=== PATIENT | male | born 1960 | race Caucasian/White ===

== ENCOUNTER 2022-04-16 08:43 | Day surgery (SDC) | payer BC, OTHER ==
[~2022-04-16 08:43] MED LIST: SODIUM CHLORIDE 0.9% 1,000 ML IV SCH
[2022-04-16] MEDS ORDERED: SODIUM CHLORIDE 0.9% 500 ML 500 ML IV ONE (08:56)
[2022-04-16 09:07] LABS: Glucose,Whole Blood 168 mg/dL (70-110)
[2022-04-16 09:28] LABS: Calcium 9.7 mg/dL (8.4-10.2); Potassium 4.2 mmol/L (3.5-5.1)
[2022-04-16] MEDS ORDERED: PROPOFOL 10 MG/ML 20 ML VIAL IV ONE (10:25)
[2022-04-16] MEDS ORDERED: HEPARIN SODIUM,PORCINE 5,000 UNIT/ML 1 ML VIAL ONE (10:25)
[2022-04-16] MEDS ORDERED: LIDOCAINE 2% INJ 20 MG/ML (2 ML VIAL) ONE (10:25)
--- NOTE | 2022-04-16 10:56 | P.TEE ---
Description of Procedure(s): Procedure performed: Transesophageal Echocardiogram with color flow doppler, pulsed wave doppler and continuous wave doppler, cardioversion Moderate conscious sedation: Moderate conscious sedation was supplied by anesthesia, see separate report Complications: none Indications: Symptomatic A. fib PROCEDURE: After the risks, benefits and alternatives of the above mentioned procedure was explained in detail with the patient, informed consent was obtained. Patient was brought to the lab in a fasting state. Patient was given IV Versed and Fentanyl for sedation. The throat was sprayed with Hurricane to anesthetize the throat. A lubricated Omni probe was then introduced into the esophagus and stomach and multiple views were obtained. 2D echo with color flow doppler, pulsed wave doppler and continuous wave doppler was utilized. Agitated saline bubbles were injected to assess for any intra-atrial shunt. The probe wa s then removed. Synchronize cardioversion 1 was performed with 200 J with resultant sinus rhythm. Patient tolerated the procedure well. Patient was transferred to the post procedure area in stable and satisfactory condition. FINDINGS: 1. The aortic valve is tricuspid and functioning normally. 2. The mitral valve appears be normal with mild mitral regurgitation. 3. Tricuspid valve with trace tricuspid regurgitation. 4. The interatrial septum is intact. No evidence of PFO. 5. Left atrial appendage is free of clot. There is smoke noted in left atrial appendage however no thrombus. 6. Left ventricular ejection fraction is 15-20% with global hypokinesis
[2022-04-16 11:22] VITALS: RESP 16
[2022-04-16 12:58] VITALS: PULSE 80
[2022-04-16 13:03] VITALS: BP 122/85
== END 2022-04-16 12:45 | disposition home or self-care (01) ==
LOC: CATHCVL 08:43
PROVIDERS: ATTEND Internal Medicine
DX: I48.11 Longstanding persistent atrial fibrillation (principal); I11.0 Hypertensive heart disease with heart failure; I50.9 Heart failure, unspecified; E78.5 Hyperlipidemia, unspecified; E11.9 Type 2 diabetes mellitus without complications; F17.210 Nicotine dependence, cigarettes, uncomplicated
CPT/HCPCS: 80048; 92960; 93312; 93320; 93325

== ENCOUNTER 2022-11-13 23:48 | Emergency (ER) | payer OTHER ==
[2022-11-14] MEDS ORDERED: PANTOPRAZOLE 40 MG/10 ML VIAL ONE (02:00)
[2022-11-14] MEDS ORDERED: SODIUM CHLORIDE 0.9% 1,000 ML BAG ONE (02:00)
[2022-11-14] MEDS ORDERED: DILTIAZEM 125 MG/25 ML VIAL IV ONE (02:00)
[2022-11-14] MEDS ORDERED: SODIUM CHLORIDE 0.9% 100 ML BAG ONE (02:00)
[2022-11-14] MEDS ORDERED: ONDANSETRON 4 MG/2 ML VIAL ONE (02:00)
[2022-11-14] MEDS ORDERED: cefTRIAXone IN SWFI 1,000 MG/10 ML SYRINGE IVP ONE (02:00)
[2022-11-14] MEDS ORDERED: OCTREOTIDE 100 MCG/ML INJ ONE (02:00)
[2022-11-14] MEDS ORDERED: cefTRIAXone IN SWFI 1,000 MG/10 ML SYRINGE IVP STA (02:30)
[2022-11-14] MEDS ORDERED: ONDANSETRON 4 MG/2 ML VIAL IVP ONE (02:30)
[2022-11-14] MEDS ORDERED: OCTREOTIDE 100 MCG/ML INJ IVP ONE (03:00)
[2022-11-14] MEDS ORDERED: OCTREOTIDE 500 MCG in SODIUM CHLORIDE 0.9% 250 ML IV ONE (03:00)
[2022-11-14 06:56] LABS: Basophils % (A) 0 %; Eosinophils # (A) 0.1 k/uL (0-0.7); Eosinophils % (A) 1 %; HCT 39.8 % (39.0-53.0); HGB 12.9 gm/dL (13.0-17.5); Lymphocytes # (A) 1.4 k/uL (1.0-4.8); Lymphocytes % (A) 12 %; MCH 32.4 pg (25.0-35.0); MCHC 32.4 g/dL (31.0-37.0); MCV 100.2 fL (80.0-100.0); Macrocytosis Slight; Mean Platelet Volume 8.4; Monocytes # (A) 0.8 k/uL (0-1.0); Monocytes % (A) 6 %; Neutrophils # (A) 9.7 k/uL (1.3-7.7); Neutrophils % (A) 78 %; Platelet Count 284 k/uL (150-450); RBC 3.97 m/uL (4.30-5.90); RDW 14.4 % (11.5-15.5); WBC 12.4 k/uL (3.8-10.6)
[2022-11-14 06:58] LABS: HCT 35.7 % (39.0-53.0); HGB 11.4 gm/dL (13.0-17.5); MCH 32.2 pg (25.0-35.0); MCHC 32.1 g/dL (31.0-37.0); MCV 100.2 fL (80.0-100.0); Macrocytosis Slight; Mean Platelet Volume 8.4; Platelet Count 251 k/uL (150-450); RBC 3.56 m/uL (4.30-5.90); RDW 14.5 % (11.5-15.5); WBC 13.8 k/uL (3.8-10.6)
[2022-11-14 07:00] LABS: INR 1.2 (<1.2); Partial Thromboplastin Time 24.3 sec (22.0-30.0); Prothrombin Time 12.4 sec (9.0-12.0)
[2022-11-14 07:13] LABS: ALT 16 U/L (4-49); AST 21 U/L (17-59); African American GFR (CKD) 51 (>60 ml/min/1.73 sqM); Albumin 4.4 g/dL (3.5-5.0); Alkaline Phosphatase 63 U/L (38-126); Anion Gap 15 mmol/L; Blood Urea Nitrogen 88 mg/dL (9-20); Calcium 9.6 mg/dL (8.4-10.2); Carbon Dioxide 22 mmol/L (22-30); Chloride 104 mmol/L (98-107); Glucose 152 mg/dL (74-99); Non-African American GFR(CKD) 44 (>60 ml/min/1.73 sqM); Sodium 141 mmol/L (137-145); Total Protein 7.8 g/dL (6.3-8.2)
--- NOTE | 2022-11-14 15:24 | XR ---
EXAM: XR Chest, 2 Views CLINICAL HISTORY: Chest pain, SOB TECHNIQUE: Frontal and lateral views of the chest. COMPARISON: No relevant prior studies available. FINDINGS: Lungs: Vascular congestion. Pleural space: Unremarkable. No pneumothorax. No pleural effusions. Heart: Mild cardiomegaly. Mediastinum: Unremarkable. Bones/joints: No acute osseous abnormalities. IMPRESSION: Vascular congestion with mild enlargement of the cardiac silhouette.
== END 2022-11-14 04:15 | disposition other institution (70) ==
LOC: EC 23:48
DX: E87.70 Fluid overload, unspecified (principal)
CPT/HCPCS: 99285 ×2; 36430; 86900; 86901; 36415; 83880; 80053; 83605; 83735; 84484; 85025; 85027; 85610; 85730; 86850; 86920; 82272; 87635; 71046; P9016; G0480; J2405; J2354; J0696; C9113; 80320

== ENCOUNTER → 2023-01-01 | Outpatient (CLI) | payer OTHER ==
[2023-01-01 20:33] LABS: BUN/Creat Ratio 16.82 Ratio (12.00-20.00); Blood Urea Nitrogen 28.6 mg/dL (9.0-27.0); Calcium 9.7 mg/dL (8.7-10.3); Carbon Dioxide 26.3 mmol/L (21.6-31.8); Chloride 99 mmol/L (96-109); Glucose 161 mg/dL (70-110); Potassium 5.1 mmol/L (3.5-5.5); Sodium 137 mmol/L (135-145)
== END | disposition home or self-care (01) ==
LOC: LABPAT 13:19
PROVIDERS: ATTEND Internal Medicine
DX: Z01.818 Encounter for other preprocedural examination (principal); I49.9 Cardiac arrhythmia, unspecified
CPT/HCPCS: 80048

== ENCOUNTER 2023-01-03 10:19 | Day surgery (SDC) | payer OTHER ==
[2023-01-03] MEDS ORDERED: LACTATED RINGERS 1,000 ML IV ONE (10:43)
[2023-01-03 10:57] VITALS: TEMP 97.5
[2023-01-03 11:15] LABS: Glucose,Whole Blood 138 mg/dL (70-110)
[2023-01-03] MEDS ORDERED: BENZOCAINE SPRAY 1 CAN TOPICAL ONE (11:58)
[2023-01-03] MEDS ORDERED: PROPOFOL 10 MG/ML 20 ML VIAL IV ONE (12:00)
[2023-01-03] MEDS ORDERED: LIDOCAINE 2% INJ 20 MG/ML (2 ML VIAL) ONE (12:00)
[2023-01-03 12:43] LABS: Glucose,Whole Blood 112 mg/dL (70-110)
[2023-01-03 13:23] VITALS: BP 127/81; PULSE 53; RESP 16
--- NOTE | 2023-01-03 14:00 | P.TEE ---
Description of Procedure(s): Procedure performed: Transesophageal Echocardiogram with color flow doppler, and continuous wave doppler, synchronized cardioversion Moderate conscious sedation: Moderate conscious sedation was supplied by anesthesia, see separate report. Complications: none Indications: Afib PROCEDURE: After the risks, benefits and alternatives of the above mentioned procedure was explained in detail with the patient, informed consent was obtained. Patient was brought to the lab in a fasting state. Patient was given IV Versed and Fentanyl for sedation. The throat was sprayed with Hurricane to anesthetize the throat. A lubricated Omni probe was then introduced into the esophagus and stomach and multiple views were obtained. 2D echo with color flow doppler, pulsed wave doppler and continuous wave doppler was utilized. Agitated saline bubbles were injected to assess for any intra-atrial shunt. The probe was then removed. There was no thrombus noted and therefore patient underwent synchronized cardioversion x 1 with 200J with resultant sinus rhythm. Patient tolerated the procedure well. Patient was transferred to the post procedure area in stable and satisfactory condition. FINDINGS: 1. The aortic valve is tricuspid and function normally with trace AI. 2. The mitral valve appears be normal with mild regurgitation. 3. Tricuspid valve appears to be normal with moderate to severe tricuspid regurgitation. 4. There is a PFO. 5. Left atrial appendage is free of clot. 6. Left ventricular EF is 35% with global hypokinesis
== END 2023-01-03 13:57 | disposition home or self-care (01) ==
LOC: OR 10:19
PROVIDERS: ATTEND Internal Medicine
DX: I48.11 Longstanding persistent atrial fibrillation (principal); I08.1 Rheumatic disorders of both mitral and tricuspid valves
CPT/HCPCS: 93312; 93320; 93005; 93325; 92960; J2704; J2001

== ENCOUNTER 2024-07-19 21:55 | Inpatient (IN) | payer MEDICARE, OTHER ==
[2024-07-19] MEDS: ENALAPRILAT 1.25 MG/ML 1 ML VIAL IVP STA ×2 (22:19)
[2024-07-19 22:28] LABS: Basophils # (A) 0.1 k/uL (0-0.2); Basophils % (A) 0 %; Eosinophils # (A) 0.1 k/uL (0-0.7); Eosinophils % (A) 0 %; HCT 49.2 % (39.0-53.0); HGB 15.9 gm/dL (13.0-17.5); Lymphocytes # (A) 2.9 k/uL (1.0-4.8); Lymphocytes % (A) 23 %; MCH 30.8 pg (25.0-35.0); MCHC 32.3 g/dL (31.0-37.0); MCV 95.6 fL (80.0-100.0); Mean Platelet Volume 9.2; Monocytes # (A) 0.7 k/uL (0-1.0); Monocytes % (A) 6 %; Neutrophils # (A) 8.6 k/uL (1.3-7.7); Neutrophils % (A) 68 %; Platelet Count 194 k/uL (150-450); RBC 5.14 m/uL (4.30-5.90); WBC 12.7 k/uL (3.8-10.6)
[2024-07-19 22:38] LABS: INR 1.1 (<1.2); Partial Thromboplastin Time 24.5 sec (22.0-30.0); Prothrombin Time 11.9 sec (10.0-12.5)
[2024-07-19 22:42] LABS: ALT 31 U/L (4-49); AST 58 U/L (17-59); African American GFR (CKD) 52 (>60 ml/min/1.73 sqM); Alkaline Phosphatase 59 U/L (38-126); Anion Gap 14 mmol/L; Blood Urea Nitrogen 25 mg/dL (9-20); Calcium 8.9 mg/dL (8.4-10.2); Carbon Dioxide 21 mmol/L (22-30); Chloride 101 mmol/L (98-107); Glucose 228 mg/dL (74-99); Magnesium 1.6 mg/dL (1.6-2.3); Non-African American GFR(CKD) 45 (>60 ml/min/1.73 sqM); Potassium 4.6 mmol/L (3.5-5.1); Sodium 136 mmol/L (137-145); Total Bilirubin 0.6 mg/dL (0.2-1.3); Total Protein 7.2 g/dL (6.3-8.2)
[2024-07-19 22:50] LABS: NT-Pro-B-Type Natriuretic Pept 12900 pg/mL
[2024-07-19 23:03] LABS: Influenza A Detected (Not Detectd); Influenza B Not Detected (Not Detectd); RSV Not Detected (Not Detectd)
--- NOTE | 2024-07-19 23:15 | ED ---
SOB HPI - General Chief Complaint: Shortness of Breath Stated Complaint: SOB Time Seen by Provider: 07/19/24 21:56 Source: patient, EMS, RN notes reviewed, old records reviewed Mode of arrival: EMS Limitations: no limitations - History of Present Illness Initial Comments: This is a 64 male to the ER for evaluation of severe respiratory distress shortness of breath a few days of cough congestion. Patient presents in extremis with severe hypoxia per EMS, patient presents on BiPAP, CPAP secondary to respiratory distress respiratory failure, patient has history of smoking history of heart disease and severely elevated blood pressure on arrival to the ER MD Complaint: shortness of breath, anxiety -: hour(s) Severity: severe Severity scale (1-10): 10 Quality: aching, throbbing, stabbing Consistency: constant Improves With: nothing Worsens With: exertion Known History Of: COPD, asthma, congestive heart failure Context: anxiety, recent illness Associated Symptoms: pain with inspiration, fever Treatments Prior to Arrival: none - Related Data Home Medications Medication Instructions Recorded Confirmed Apixaban [Eliquis] 5 mg PO BID 04/12/22 07/20/24 Furosemide [Lasix] 40 mg PO DAILY 04/12/22 07/20/24 Amiodarone [Cordarone] 200 mg PO DAILY 12/31/22 07/20/24 Metoprolol Succinate (ER) [Toprol 25 mg PO DAILY 07/20/24 07/20/24 Xl] lisinopriL [Zestril] 20 mg PO BID 07/20/24 07/20/24 Allergies Allergy/AdvReac Type Severity Reaction Status Date / Time No Known Allergies Allergy Verified 07/20/24 07:12 Review of Systems ROS Statement: Those systems with pertinent positive or pertinent negative responses have been documented in the HPI. ROS Other: All systems not noted in ROS Statement are negative. Past Medical History Past Medical History: Atrial Fibrillation, Diabetes Mellitus, Hyperlipidemia, Hypertension, Pneumonia, Supraventricular Tachycardia (SVT) Additional Past Medical History / Comment(s): a fib, causes shortness of breath, can feel irregular heartbeat History of Any Multi-Drug Resistant Organisms: None Reported Past Surgical History: Cholecystectomy, Heart Catheterization Additional Past Surgical History / Comment(s): Colonoscopy Past Anesthesia/Blood Transfusion Reactions: No Reported Reaction Past Psychological History: No Psychological Hx Reported Smoking Status: Current every day smoker Past Alcohol Use History: Occasional Past Drug Use History: Marijuana - Past Family History Father Family Medical History: No Reported History Mother Family Medical History: Coronary Artery Disease (CAD) General Exam Limitations: no limitations General appearance: alert, in no apparent distress, anxious Head exam: Present: atraumatic, normocephalic, normal inspection Eye exam: Present: normal appearance, PERRL, EOMI. Absent: scleral icterus, conjunctival injection, periorbital swelling ENT exam: Present: normal exam, mucous membranes moist Neck exam: Present: normal inspection. Absent: tenderness, meningismus, lymphadenopathy Respiratory exam: Present: respiratory distress, wheezes, rhonchi, decreased breath sounds, prolonged expiratory. Absent: rales, stridor Cardiovascular Exam: Present: regular rate, normal rhythm, normal heart sounds. Absent: systolic murmur, diastolic murmur, rubs, gallop, clicks GI/Abdominal exam: Present: soft, normal bowel sounds. Absent: distended, tenderness, guarding, rebound, rigid Extremities exam: Present: normal inspection, full ROM, normal capillary refill. Absent: tenderness, pedal edema, joint swelling, calf tenderness Back exam: Present: normal inspection Neurological exam: Present: alert, oriented X3, CN II-XII intact Psychiatric exam: Present: normal affect, normal mood Skin exam: Present: warm, dry, intact, normal color. Absent: rash Course Vital Signs 07/19/24 07/19/24 07/19/24 21:56 22:06 22:18 Temperature Pulse Rate 93 91 Respiratory 33 H 40 H Rate Blood Pressure 201/113 177/97 O2 Sat by Pulse 98 96 Oximetry Fraction of 100 Inspired Oxygen (FIO2) 07/20/24 07/20/24 07/20/24 00:49 00:59 02:07 Temperature Pulse Rate 63 65 Respiratory Rate Blood Pressure O2 Sat by Pulse Oximetry Fraction of 50 Inspired Oxygen (FIO2) 07/20/24 07/20/24 07/20/24 02:44 04:10 05:00 Temperature Pulse Rate 58 L 75 Respiratory 21 28 H Rate Blood Pressure 122/67 161/88 O2 Sat by Pulse 99 96 Oximetry Fraction of 50 Inspired Oxygen (FIO2) 07/20/24 07/20/24 07/20/24 07:46 08:05 08:56 Temperature 102.3 F H Pulse Rate 71 72 74 Respiratory 18 Rate Blood Pressure 105/79 O2 Sat by Pulse 94 L 89 L Oximetry Fraction of Inspired Oxygen (FIO2) 07/20/24 07/20/24 07/20/24 09:52 11:28 12:13 Temperature 98.4 F Pulse Rate 59 L 66 Respiratory 18 Rate Blood Pressure 105/79 O2 Sat by Pulse 60 L 96 Oximetry Fraction of Inspired Oxygen (FIO2) 07/20/24 07/20/24 07/20/24 12:41 13:15 15:11 Temperature 99.1 F 98.8 F Pulse Rate 76 77 79 Respiratory 22 30 H 32 H Rate Blood Pressure 164/96 162/97 O2 Sat by Pulse 91 L 94 L 97 Oximetry Fraction of 50 Inspired Oxygen (FIO2) 07/20/24 15:38 Temperature Pulse Rate Respiratory Rate Blood Pressure O2 Sat by Pulse 92 L Oximetry Fraction of Inspired Oxygen (FIO2) - Reevaluation(s) Reevaluation #1: 07/19/24 23:45 Medical records reviewed History of atrial fibrillation history of GI bleed on anticoagulation no noted history of heart failure Reevaluation #2: 07/19/24 23:50 Patient placed on BiPAP immediately on arrival to the emergency department in s evere distress patient given Vasotec for elevated blood pressure here in the ER Significant improved blood pressure management Patient continued to improve on BiPAP with breathing treatments and requesting to be discharged home informed that will not be a hurt plan from today and he accepts Reevaluation #3: 07/20/24 00:29 Patient informed of results and questions answered Reevaluation #4: Was pt. sent in by a medical professional or institution (, PA, DOBIE MAN, urgent care, hospital, or custodial...) When possible be specific @ -no Did you speak to anyone other than the patient for history (EMS, parent, family, police, friend...)? What history was obtained from this source @ -no Did you review nursing and triage notes (agree or disagree)? Why? @ -agree Are old charts reviewed (outside hosp., previous admission, EMS record, old EKG, old radiological studies, urgent care reports/EKG's, custodial records)? Report findings @ -yes Differential Diagnosis (chest pain, altered mental status, abdominal pain women, abdominal pain men, vaginal bleeding, weakness, fever, dyspnea, syncope, headache, dizziness, GI bleed, back pain, seizure, CVA, palpatations, mental health, musculoskeletal)? @ -prior EKG interpreted by me (3pts min.). @ -yes X-rays interpreted by me (1pt min.). @ -yes with pneumonia on x-ray CT interpreted by me (1pt min.). @ -no U/S interpreted by me (1pt. min.). @ -no What testing was considered but not performed or refused? (CT, X-rays, U/S, labs)? Why? @ -none What meds were considered but not given or refused? Why? @ -none Did you discuss the management of the patient with other professionals (professionals i.e. , PA, DOBIE MAN, lab, RT, psych nurse, medical social worker, store associate, teacher, admitting officer, hospice case manager)? Give summary @ -no Was smoking cessation discussed for >3mins.? @ -no Was critical care preformed (if so, how long)? @ -yes65 Were there social determinants of health that impacted care today? How? (Homelessness, low income, unemployed, alcoholism, drug addiction, transport ation, low edu. Level, literacy, decrease access to med. care, residential, rehab)? @ -none Was there de-escalation of care discussed even if they declined (Discuss DNR or withdrawal of care, Hospice)? DNR status @ -no What co-morbidities impacted this encounter? (DM, HTN, Smoking, COPD, CAD, Cancer, CVA, ARF, Chemo, Hep., AIDS, mental health diagnosis, sleep apnea, morbid obesity)? @ -none Was patient admitted / discharged? Hospital course, mention meds given and route, prescriptions, significant lab abnormalities, going to OR and other pertinent info. @ - 64 male to the ER for evaluation of severe dyspnea shortness of breath, patient is in severe respiratory distress respiratory failure on BiPAP hypoxic respiratory failure on BiPAP secondary to pneumonia influenza and underlying history of COPD Admitted Undiagnosed new problem with uncertain prognosis? @ -no Drug Therapy requiring intensive monitoring for toxicity (Heparin, Nitro, Insulin, Cardizem)? @ -no Were any procedures done? @ -no Diagnosis/symptom? @ -COPD hypoxic BiPAP respiratory failure influenza and COPD Acute, or Chronic, or Acute on Chronic? @ -Acute Uncomplicated (without systemic symptoms) or Complicated (systemic symptoms)? @ -Complicated Side effects of treatment? @ -no Exacerbation, Progression, or Severe Exacerbation? @ -exacerbation Poses a threat to life or bodily function? How? (Chest pain, [place], [place], pneumonia, PE, COPD, DKA, ARF, appy, cholecystitis, CVA, Diverticulitis, Homicidal, Suicidal, threat to staff... and all critical care pts) @ -yes with respiratory failure Reevaluation #5: Differential Dyspnea: Coronary syndrome, arrhythmia, tamponade, asthma, COPD, pulmonary embolism, pneumonia, pneumothorax, pulmonary effusion, anaphylaxis, diabetic ketoacidosis, flailed chest, pulmonary contusion, diaphragmatic rupture, anemia, neuromuscular, this is not meant to be an all-inclusive list. - Consultations Consultation #1: Spoke with sound who agrees to admit the patient Medical Decision Making - Medical Decision Making 64 male to the ER for evaluation of severe dyspnea shortness of breath, patient is in severe respiratory distress respiratory failure on BiPAP hypoxic respiratory failure on BiPAP secondary to pneumonia influenza and underlying history of COPD - Lab Data Result diagrams: 07/26/24 07:14 07/26/24 07:14 Lab Results 07/19/24 07/19/24 07/19/24 Range/Units 02:30 22:14 22:14 WBC 12.7 H (3.8-10.6) k/uL RBC 5.14 (4.30-5.90) m/uL Hgb 15.9 (13.0-17.5) gm/dL Hct 49.2 (39.0-53.0) % MCV 95.6 (80.0-100.0) fL MCH 30.8 (25.0-35.0) pg MCHC 32.3 (31.0-37.0) g/dL RDW 13.0 (11.5-15.5) % Plt Count 194 (150-450) k/uL MPV 9.2 Neutrophils % 68 % Lymphocytes % 23 % Monocytes % 6 % Eosinophils % 0 % Basophils % 0 % Neutrophils # 8.6 H (1.3-7.7) k/uL Lymphocytes # 2.9 (1.0-4.8) k/uL Monocytes # 0.7 (0-1.0) k/uL Eosinophils # 0.1 (0-0.7) k/uL Basophils # 0.1 (0-0.2) k/uL PT 11.9 (10.0-12.5) sec INR 1.1 (<1.2) APTT 24.5 (22.0-30.0) sec Sodium (137-145) mmol/L Potassium (3.5-5.1) mmol/L Chloride (98-107) mmol/L Carbon Dioxide (22-30) mmol/L Anion Gap mmol/L BUN (9-20) mg/dL Creatinine (0.66-1.25) mg/dL Est GFR (CKD-EPI)AfAm (>60 ml/min/1.73 sqM) Est GFR (CKD-EPI)NonAf (>60 ml/min/1.73 sqM) Glucose (74-99) mg/dL Lactic Ac Sepsis Rflx Plasma Lactic Acid Rodri (0.7-2.0) mmol/L Calcium (8.4-10.2) mg/dL Magnesium (1.6-2.3) mg/dL Total Bilirubin (0.2-1.3) mg/dL AST (17-59) U/L ALT (4-49) U/L Alkaline Phosphatase (38-126) U/L Troponin I (0.000-0.034) ng/mL NT-Pro-B Natriuret Pep pg/mL Total Protein (6.3-8.2) g/dL Albumin (3.5-5.0) g/dL Procalcitonin 2.38 H (0.02-0.50) ng/mL Influenza Type A (PCR) (Not Detectd) Influenza Type B (PCR) (Not Detectd) RSV (PCR) (Not Detectd) SARS-CoV-2 (PCR) (Not Detectd) 07/19/24 07/19/24 07/19/24 Range/Units 22:14 22:14 22:14 WBC (3.8-10.6) k/uL RBC (4.30-5.90) m/uL Hgb (13.0-17.5) gm/dL Hct (39.0-53.0) % MCV (80.0-100.0) fL MCH (25.0-35.0) pg MCHC (31.0-37.0) g/dL RDW (11.5-15.5) % Plt Count (150-450) k/uL MPV Neutrophils % % Lymphocytes % % Monocytes % % Eosinophils % % Basophils % % Neutrophils # (1.3-7.7) k/uL Lymphocytes # (1.0-4.8) k/uL Monocytes # (0-1.0) k/uL Eosinophils # (0-0.7) k/uL Basophils # (0-0.2) k/uL PT (10.0-12.5) sec INR (<1.2) APTT (22.0-30.0) sec Sodium 136 L (137-145) mmol/L Potassium 4.6 (3.5-5.1) mmol/L Chloride 101 (98-107) mmol/L Carbon Dioxide 21 L (22-30) mmol/L Anion Gap 14 mmol/L BUN 25 H (9-20) mg/dL Creatinine 1.59 H (0.66-1.25) mg/dL Est GFR (CKD-EPI)AfAm 52 (>60 ml/min/1.73 sqM) Est GFR (CKD-EPI)NonAf 45 (>60 ml/min/1.73 sqM) Glucose 228 H (74-99) mg/dL Lactic Ac Sepsis Rflx Plasma Lactic Acid Rodri 3.2 H* (0.7-2.0) mmol/L Calcium 8.9 (8.4-10.2) mg/dL Magnesium 1.6 (1.6-2.3) mg/dL Total Bilirubin 0.6 (0.2-1.3) mg/dL AST 58 (17-59) U/L ALT 31 (4-49) U/L Alkaline Phosphatase 59 (38-126) U/L Troponin I 0.102 H* (0.000-0.034) ng/mL NT-Pro-B Natriuret Pep 57073 pg/mL Total Protein 7.2 (6.3-8.2) g/dL Albumin 4.0 (3.5-5.0) g/dL Procalcitonin (0.02-0.50) ng/mL Influenza Type A (PCR) (Not Detectd) Influenza Type B (PCR) (Not Detectd) RSV (PCR) (Not Detectd) SARS-CoV-2 (PCR) (Not Detectd) 07/19/24 07/19/24 Range/Units 22:18 23:00 WBC (3.8-10.6) k/uL RBC (4.30-5.90) m/uL Hgb (13.0-17.5) gm/dL Hct (39.0-53.0) % MCV (80.0-100.0) fL MCH (25.0-35.0) pg MCHC (31.0-37.0) g/dL RDW (11.5-15.5) % Plt Count (150-450) k/uL MPV Neutrophils % % Lymphocytes % % Monocytes % % Eosinophils % % Basophils % % Neutrophils # (1.3-7.7) k/uL Lymphocytes # (1.0-4.8) k/uL Monocytes # (0-1.0) k/uL Eosinophils # (0-0.7) k/uL Basophils # (0-0.2) k/uL PT (10.0-12.5) sec INR (<1.2) APTT (22.0-30.0) sec Sodium (137-145) mmol/L Potassium (3.5-5.1) mmol/L Chloride (98-107) mmol/L Carbon Dioxide (22-30) mmol/L Anion Gap mmol/L BUN (9-20) mg/dL Creatinine (0.66-1.25) mg/dL Est GFR (CKD-EPI)AfAm (>60 ml/min/1.73 sqM) Est GFR (CKD-EPI)NonAf (>60 ml/min/1.73 sqM) Glucose (74-99) mg/dL Lactic Ac Sepsis Rflx Y Plasma Lactic Acid Rodri (0.7-2.0) mmol/L Calcium (8.4-10.2) mg/dL Magnesium (1.6-2.3) mg/dL Total Bilirubin (0.2-1.3) mg/dL AST (17-59) U/L ALT (4-49) U/L Alkaline Phosphatase (38-126) U/L Troponin I (0.000-0.034) ng/mL NT-Pro-B Natriuret Pep pg/mL Total Protein (6.3-8.2) g/dL Albumin (3.5-5.0) g/dL Procalcitonin (0.02-0.50) ng/mL Influenza Type A (PCR) Detected A (Not Detectd) Influenza Type B (PCR) Not Detected (Not Detectd) RSV (PCR) Not Detected (Not Detectd) SARS-CoV-2 (PCR) Not Detected (Not Detectd) - EKG Data -: EKG Interpreted by Me (EKG is sinus 93 MO 185 QRS 160 QTc 439) - Radiology Data Radiology results: report reviewed (CXR is multifocal pneumonia), image reviewed Critical Care Time Critical Care Time: Yes Total Critical Care Time: 65 Disposition Clinical Impression: Acute exacerbation of chronic obstructive pulmonary disease, Community acquired pneumonia, Congestive heart failure, Hypertensive emergency, Hypoxia, Acute respiratory failure Disposition: ADMITTED IP TO THIS HOSP Condition: Serious Is patient prescribed a controlled substance at d/c from ED?: No Time of Disposition: 00:30
--- NOTE | 2024-07-19 23:50 | XR ---
EXAM: XR Chest, 1 View CLINICAL HISTORY: ITS.REASON XR Reason: sob TECHNIQUE: Frontal view of the chest. COMPARISON: Chest x-ray of 11/14/2022. FINDINGS: Lungs: There is consolidative change at the left mid and lower lung zones as well as to a lesser extent at the left suprahilar region most suggestive of multifocal pneumonia. Possible minimal patchy airspace disease at the right upper lobe. Pleural space: Unremarkable. No pneumothorax. Heart: Cardiomegaly. Mediastinum: Unremarkable. Normal mediastinal contour. Bones/joints: Unremarkable. No acute fracture. Vasculature: Atherosclerotic disease. Other findings: Hypoaeration. IMPRESSION: 1. Cardiomegaly. 2. Areas of airspace disease most notably at the left mid lower lung zones most suggestive of multifocal pneumonia. Clinical correlation and short-term imaging in 4-6 weeks is advised to document resolution. 3. If there is concern for other etiologies, CT imaging of the chest should be performed.
[2024-07-20] MEDS ORDERED: PNEUMONIA PROTOCOL UTILIZED 1 EACH MISC PO PRN (00:25)
[2024-07-20] MEDS: MORPHINE SULFATE 2 MG/ML SYRINGE IVP STA (00:25)
[2024-07-20] MEDS: LORazepam 2 MG/ML INJ IV STA (00:25)
[2024-07-20] MEDS ORDERED: IPRATROPIUM-ALBUTEROL 3 ML NEB INHALATION PRN (00:25)
[2024-07-20] MEDS: OSELTAMIVIR 75 MG CAP PO STA (00:46)
[2024-07-20] MEDS: SODIUM CHLORIDE 0.9% 1,000 ML IV SCH (00:48)
[2024-07-20] MEDS: IPRATROPIUM-ALBUTEROL 3 ML NEB INHALATION STA (00:49)
[2024-07-20] MEDS: AZITHROMYCIN 500 MG in SODIUM CHLORIDE 0.9% 250 ML IVPB STA (00:51)
--- NOTE | 2024-07-20 00:59 | P.HPIM ---
History of Present Illness H&P Date: 07/20/24 Patient is a 64-year-old male with a PMH of A-fib on Eliquis, COPD not on home oxygen, type II DM, hypertension, hyperlipidemia, CKD stage IIIa who presents to the emergency room with complaints of shortness of breath and cough. Patient reports that over the past 1 week he has been experiencing gradually worsening persistent cough. Reports that the cough is nonproductive. He also reports exertional dyspnea. Denies experiencing fever or chills. Also denies chest discomfort, nausea, vomiting, abdominal pain, diarrhea. Chest x-ray in the emergency room revealed cardiomegaly along with findings of multifocal pneumonia. EKG revealed sinus rhythm at 93 bpm with intraventricular conduction delay as reviewed by me. Laboratory evaluation did reveal influenza type a positive, troponin 0.102, proBNP 12,900, lactic acid 3.3, glucose 228, BUN 25, creatinine 1.59, and WBC count 12.7 with neutrophilic predominance. Patient was reportedly severely hypoxic and in respiratory distress upon EMS arrival at the scene and was started on BiPAP. ED documentation reviewed and case discussed with ED provider. Review of systems: Pertinent positives and negatives as discussed in HPI, a complete review of systems was performed and all other systems are negative. Physical examination: Vital signs reviewed General: non toxic, no distress, appears at stated age, obese Derm: no unusual rashes/lesions, warm Head: atraumatic, normocephalic, symmetric Eyes: EOMI, no lid lag, anicteric sclera, pupils equal round reactive to light ENT: Nose and ears atraumatic Neck: No cervical lymphadenopathy, trachea midline, supple Mouth: no lip lesion, mucus membranes moist Cardiovascular: S1S2 reg, no murmur, positive dorsalis pedis pulse bilateral, no edema Lungs: Bilateral rhonchi with some scattered wheezing, no accessory muscle use Abdominal: soft, nontender to palpation, no guarding Ext: muscle strength 4 out of 5 in all 4 extremities grossly, no gross muscle atrophy, no contractures, Neuro: CN II-XI grossly intact, no gross focal neuro deficits Psych: Alert, oriented, appropriate affect Assessment: Sepsis secondary to influenza pneumonia, unable to rule out bacterial pneumonia Acute hypoxic respiratory failure, secondary to above Elevated troponin, likely type II HI Lactic acidosis Chronic conditions: A-fib, COPD, type II DM, hypertension, hyperlipidemia, CKD stage IIIa Imaging: Chest x-ray in the emergency room revealed cardiomegaly along with findings of multifocal pneumonia. EKG revealed sinus rhythm at 93 bpm with intraventricular conduction delay as reviewed by me. Data Review: Laboratory evaluation did reveal influenza type a positive, troponin 0.102, proBNP 12,900, lactic acid 3.3, glucose 228, BUN 25, creatinine 1.59, and WBC count 12.7 with neutrophilic predominance. Patient was reportedly severely hypoxic and in respiratory distress upon EMS arrival at the scene and was started on BiPAP. Plan: Continue with Tamiflu and azithromycin with ceftriaxone for now Check procalcitonin levels Follow-up blood and sputum cultures Continue BiPAP for now Pulmonary consulted Continue DuoNebs [id number] and as needed Trend troponin, patient denying chest discomfort at this time Cardiac monitoring Consider cardiology consult if troponin uptrending Obtain echocardiogram Resume home medications once reconciled DVT prophylaxis: Eliquis The patient is admitted with an anticipated greater than than 2 midnight stay for evaluation of pneumonia CODE STATUS: Full Code Discussed with: Patient Anticipated discharge place: Home Past Medical History Past Medical History: Atrial Fibrillation, Diabetes Mellitus, Hyperlipidemia, Hypertension, Pneumonia, Supraventricular Tachycardia (SVT) Additional Past Medical History / Comment(s): a fib, causes shortness of breath, can feel irregular heartbeat History of Any Multi-Drug Resistant Organisms: None Reported Past Surgical History: Cholecystectomy, Heart Catheterization Additional Past Surgical History / Comment(s): Colonoscopy Past Anesthesia/Blood Transfusion Reactions: No Reported Reaction Past Psychological History: No Psychological Hx Reported Smoking Status: Current every day smoker Past Alcohol Use History: Occasional Past Drug Use History: Marijuana - Past Family History Father Family Medical History: No Reported History Mother Family Medical History: Coronary Artery Disease (CAD) Medications and Allergies Home Medications Medication Instructions Recorded Confirmed Type Apixaban [Eliquis] 5 mg PO BID 04/12/22 01/03/23 History Furosemide [Lasix] 80 mg PO QAM 04/12/22 01/03/23 History lisinopriL [Zestril] 20 mg PO BID 04/12/22 01/03/23 History Amiodarone [Cordarone] 200 mg PO BID 12/31/22 01/03/23 History Atorvastatin [Lipitor] 40 mg PO HS 12/31/22 01/03/23 History Metoprolol Tartrate [Lopressor] 25 mg PO BID 12/31/22 01/03/23 History Omeprazole 20 mg PO BID 12/31/22 01/03/23 History Allergies Allergy/AdvReac Type Severity Reaction Status Date / Time No Known Allergies Allergy Verified 01/03/23 10:53 Physical Exam Vitals: Vital Signs Pulse Resp BP Pulse Ox FiO2 07/20/24 00:49 63 07/19/24 22:18 100 07/19/24 22:06 91 40 H 177/97 96 07/19/24 21:56 93 33 H 201/113 98 Intake and Output 07/19/24 07/19/24 07/20/24 14:59 22:59 06:59 Other: Weight 95.254 kg Results CBC & Chem 7: 07/19/24 22:14 07/19/24 22:14 Labs: Abnormal Lab Results - Last 24 Hours (Table) 07/19/24 07/19/24 07/19/24 Range/Units 22:14 22:14 22:14 WBC 12.7 H (3.8-10.6) k/uL Neutrophils # 8.6 H (1.3-7.7) k/uL Sodium 136 L (137-145) mmol/L Carbon Dioxide 21 L (22-30) mmol/L BUN 25 H (9-20) mg/dL Creatinine 1.59 H (0.66-1.25) mg/dL Glucose 228 H (74-99) mg/dL Plasma Lactic Acid Rodri 3.2 H* (0.7-2.0) mmol/L Troponin I (0.000-0.034) ng/mL Influenza Type A (PCR) (Not Detectd) 07/19/24 07/19/24 Range/Units 22:14 22:18 WBC (3.8-10.6) k/uL Neutrophils # (1.3-7.7) k/uL Sodium (137-145) mmol/L Carbon Dioxide (22-30) mmol/L BUN (9-20) mg/dL Creatinine (0.66-1.25) mg/dL Glucose (74-99) mg/dL Plasma Lactic Acid Rodri (0.7-2.0) mmol/L Troponin I 0.102 H* (0.000-0.034) ng/mL Influenza Type A (PCR) Detected A (Not Detectd)
[2024-07-20 02:59] LABS: HCT 43.4 % (39.0-53.0); HGB 14.3 gm/dL (13.0-17.5); MCH 31.5 pg (25.0-35.0); MCHC 33.1 g/dL (31.0-37.0); MCV 95.1 fL (80.0-100.0); Mean Platelet Volume 9.1; Platelet Count 156 k/uL (150-450); RBC 4.56 m/uL (4.30-5.90); WBC 10.5 k/uL (3.8-10.6)
[2024-07-20 03:01] LABS: African American GFR (CKD) 43 (>60 ml/min/1.73 sqM); Anion Gap 11 mmol/L; Blood Urea Nitrogen 29 mg/dL (9-20); Calcium 8.7 mg/dL (8.4-10.2); Carbon Dioxide 27 mmol/L (22-30); Chloride 97 mmol/L (98-107); Glucose 174 mg/dL (74-99); Non-African American GFR(CKD) 37 (>60 ml/min/1.73 sqM); Potassium 4.3 mmol/L (3.5-5.1); Sodium 135 mmol/L (137-145)
[2024-07-20] MEDS ORDERED: HEPARIN SODIUM 1,000 UN/ML (10ML VL) IV PRN (03:54)
[2024-07-20] MEDS: HEPARIN SODIUM 1,000 UN/ML (10ML VL) IV ONE (04:18)
[2024-07-20] MEDS: HEPARIN SOD,PORK IN 0.45% NACL 25,000 UNIT in 0.45% NACL 1 250ML.BAG IV SCH (04:19)
[2024-07-20] MEDS: ASPIRIN 325 MG TAB PO STA (04:23)
[2024-07-20] MEDS: IPRATROPIUM-ALBUTEROL 3 ML NEB INHALATION SCH (07:46)
[2024-07-20] MEDS: OSELTAMIVIR 30 MG CAP PO SCH (08:05)
[2024-07-20] MEDS: METOPROLOL SUCCINATE (ER) 25 MG TAB.ER.24H PO SCH (08:52)
[2024-07-20] MEDS: ACETAMINOPHEN TAB 325 MG TAB PO PRN (08:52)
[2024-07-20] MEDS: AMIODARONE 200 MG TAB PO SCH (08:52)
[2024-07-20] MEDS: FUROSEMIDE 10 MG/ML 2 ML VIAL IV SCH (08:54)
--- NOTE | 2024-07-20 11:53 | P.CRDCN ---
History of Present Illness Consult date: 07/20/24 Reason for Consult (text): NSTEMI History of present illness: This is a 64-year-old male patient of Dr. Toledo with past medical history of chronic kidney disease stage III, COPD tobacco use, alcohol abuse, hypertension, diabetes mellitus type 2, persistent atrial fibrillation, systolic heart failure, recent GI bleed, family history of premature coronary artery disease. We have been asked to evaluate the patient for NSTEMI. Patient states he had a cough for 10 days that was dry with increasing shortness of breath but gradually worsening. He does not have home oxygen therapy. He denies any chest pain or chest pressure. Prior to this episode, patient was feeling well with no shortness of breath. He is now not eating or drinking very much with decreased appetite. At home, he states he was taking all of his prescribed medications. He is urinating okay. He presented with a blood pressure of 200/113. He does not check his blood pressure at home. Temperature max 102.3. Blood pressure now 161/88, heart rate 75, pulse ox 96% on BiPAP. He denies smoking and denies alcohol use. Patient has been started on heparin drip. Patient is seen today in the emergency center waiting for a bed on the cardiac stepdown unit. -EKG: Sinus rhythm with IVCD -Chest x-ray: Cardiomegaly. Areas of airspace disease most notably at the left mid and lower lung suggestive of multifocal pneumonia. -Laboratory studies: WBC initially 12.7 and repeat 10.5, hemoglobin 14.3. Sodium 135, potassium 4.3, BUN 29 creatinine 1.86. Lactic acid 3.2 followed by 1.9. Troponin 0.102, 0.327. Influenza A detected. -Home cardiac medications: Amiodarone 200 mg daily, Eliquis 5 mg twice daily, Lasix 40 mg daily, lisinopril 20 mg twice daily, metoprolol succinate 25 mg daily. -ABHIJIT and cardioversion performed on 01/03/2023 revealed aortic valve is tri cuspid, functioning normally with trace AI. Mitral valve appears to be normal with mild regurgitation. Tricuspid valve appears to be normal with moderate to severe tricuspid regurgitation. There is a PFO. Left atrial appendage is free of clot. EF 35%. -ABHIJIT and cardioversion performed 04/16/2022. Dobutamine stress echocardiogram performed in the office on 12/27/2020 revealed nondiagnostic EKG portion secondary to baseline EKG abnormalities. Normal stress echo portion without inducible ischemia. Normal left ventricular ejection fraction of 60%. Review Of Systems: At the time of my exam: CONSTITUTIONAL: Denies fever or chills. HEENT: Denies blurred vision, vision changes, or eye pain. Denies hemoptysis CARDIOVASCULAR: Denies chest pain. Denies orthopnea. Denies PND. Denies palpitations RESPIRATORY: Denies shortness of breath. GASTROINTESTINAL: Denies abdominal pain. Denies nausea or vomiting. HEMATOLOGIC: Denies bleeding disorders. GENITOURINARY: Denies any blood in urine. SKIN: Denies puritis. Denies rash. Physical examination: Gen: This is a 64-year-old male in no acute respiratory distress. VS: reviewed HEENT: Head is atraumatic, normocephalic. Pupils equal, round. Sclerae is anicteric. NECK: Supple. No JVD. LUNGS: Scattered rhonchi. No intercostal retractions. HEART: Irregular rate and rhythm. No murmur. ABDOMEN: Soft No tenderness. EXTREMITIES: No pedal edema. No calf tenderness. NEUROLOGICAL: Patient is awake, alert and oriented x3. Assessment: Shortness of breath with acute hypoxic respiratory failure secondary to influenza, pneumonia, and component of heart failure NSTEMI possibly secondary to sepsis, influenza and pneumonia Influenza A Pneumonia Acute on chronic systolic heart failure Acute kidney injury Lactic acidosis Cardiomyopathy with previous EF of 15 to 20%, possibly tachycardia induced Hypertension Hyperlipidemia Persistent atrial fibrillation status post previous cardioversion x 2, currently in sinus rhythm Diabetes mellitus type 2 Plan: Resume patient's home cardiac medications Continue patient on heparin drip for at least 24 hours and hold Eliquis Patient has been started on aspirin Start patient on a atorvastatin 40 mg at bedtime Continue IV Lasix 20 mg every 8 hours Monitor CHOCO, daily weights, electrolytes and renal function Obtain 2-D echocardiogram and Doppler study to assess cardiac structure and function Further recommendations to follow based upon clinical course Thank you kindly for this consultation. Nurse practitioner note has been reviewed, I agree with documented findings and plan of care. Patient was seen and examined. Past Medical History Past Medical History: Atrial Fibrillation, Diabetes Mellitus, Hyperlipidemia, Hypertension, Pneumonia, Supraventricular Tachycardia (SVT) Additional Past Medical History / Comment(s): a fib, causes shortness of breath, can feel irregular heartbeat History of Any Multi-Drug Resistant Organisms: None Reported Past Surgical History: Cholecystectomy, Heart Catheterization Additional Past Surgical History / Comment(s): Colonoscopy Past Anesthesia/Blood Transfusion Reactions: No Reported Reaction Past Psychological History: No Psychological Hx Reported Smoking Status: Current every day smoker Past Alcohol Use History: Occasional Past Drug Use History: Marijuana - Past Family History Father Family Medical History: No Reported History Mother Family Medical History: Coronary Artery Disease (CAD) Medications and Allergies Home Medications Medication Instructions Recorded Confirmed Type Apixaban [Eliquis] 5 mg PO BID 04/12/22 07/20/24 History Furosemide [Lasix] 40 mg PO DAILY 04/12/22 07/20/24 History Amiodarone [Cordarone] 200 mg PO DAILY 12/31/22 07/20/24 History Metoprolol Succinate (ER) [Toprol 25 mg PO DAILY 07/20/24 07/20/24 History Xl] lisinopriL [Zestril] 20 mg PO BID 07/20/24 07/20/24 History Allergies Allergy/AdvReac Type Severity Reaction Status Date / Time No Known Allergies Allergy Verified 07/20/24 07:12 Physical Exam Vitals: Vital Signs Pulse Resp BP Pulse Ox FiO2 07/20/24 05:00 75 28 H 161/88 96 07/20/24 04:10 50 07/20/24 02:44 58 L 21 122/67 99 07/20/24 02:07 50 07/20/24 00:59 65 07/20/24 00:49 63 07/19/24 22:18 100 07/19/24 22:06 91 40 H 177/97 96 07/19/24 21:56 93 33 H 201/113 98 Intake and Output 07/19/24 07/20/24 07/20/24 22:59 06:59 14:59 Other: Weight 95.254 kg Results 07/20/24 02:30 07/20/24 02:30 Cardiac Enzymes 07/19/24 07/19/24 07/20/24 Range/Units 22:14 22:14 02:30 AST 58 (17-59) U/L Troponin I 0.102 H* 0.327 H* (0.000-0.034) ng/mL Coagulation 07/19/24 Range/Units 22:14 PT 11.9 (10.0-12.5) sec APTT 24.5 (22.0-30.0) sec CBC 07/19/24 07/20/24 Range/Units 22:14 02:30 WBC 12.7 H 10.5 (3.8-10.6) k/uL RBC 5.14 4.56 (4.30-5.90) m/uL Hgb 15.9 14.3 (13.0-17.5) gm/dL Hct 49.2 43.4 (39.0-53.0) % Plt Count 194 156 (150-450) k/uL Comprehensive Metabolic Panel 07/19/24 07/20/24 Range/Units 22:14 02:30 Sodium 136 L 135 L (137-145) mmol/L Potassium 4.6 4.3 (3.5-5.1) mmol/L Chloride 101 97 L (98-107) mmol/L Carbon Dioxide 21 L 27 (22-30) mmol/L BUN 25 H 29 H (9-20) mg/dL Creatinine 1.59 H 1.86 H (0.66-1.25) mg/dL Glucose 228 H 174 H (74-99) mg/dL Calcium 8.9 8.7 (8.4-10.2) mg/dL AST 58 (17-59) U/L ALT 31 (4-49) U/L Alkaline Phosphatase 59 (38-126) U/L Total Protein 7.2 (6.3-8.2) g/dL Albumin 4.0 (3.5-5.0) g/dL Current Medications Generic Name Dose Route Start Last Admin Trade Name Freq PRN Reason Stop Dose Admin Albuterol/Ipratropium 3 ml 07/20/24 00:25 Ipratropium-Albuterol 3 Ml Neb INHALATION RT-Q4H PRN shortness of breath Albuterol/Ipratropium 3 ml 07/20/24 08:00 Ipratropium-Albuterol 3 Ml Neb INHALATION RT-QID MALVIN Aspirin 81 mg 07/21/24 09:00 Aspirin 81 Mg PO DAILY MALVIN Benzonatate 100 mg 07/20/24 01:58 Benzonatate 100 Mg Cap PO TID PRN Cough Heparin Sodium (Porcine) 0 unit 07/20/24 03:54 Heparin Sodium 1,000 Un/Ml (10ml Vl) IV PER PROTOCOL PRN Low PTT Protocol Ceftriaxone Sodium 2 gm/ 50 mls @ 100 mls/hr 07/21/24 09:00 Sodium Chloride IVPB 07/24/24 09:29 Q24HR MALVIN Protocol Heparin Sodium/Sodium Chloride 250 mls @ 10 mls/hr 07/20/24 04:00 07/20/24 04:19 25,000 unit/ Sodium Chloride IV 10.5 units/kg/hr .Q24H MALVIN 10 mls/hr Administration Protocol 10.498 UNITS/KG/HR Miscellaneous Information 1 each 07/20/24 00:25 Pneumonia Protocol Utilized 1 Each Misc PO ONCE PRN Per Protocol Oseltamivir Phosphate 30 mg 07/20/24 09:00 Oseltamivir 30 Mg Cap PO 07/24/24 21:01 Q12HR MALVIN Protocol Intake and Output 07/19/24 07/20/24 07/20/24 22:59 06:59 14:59 Other: Weight 95.254 kg 07/20/24 02:30 07/20/24 02:30
--- NOTE | 2024-07-20 16:18 | P.CNPUL ---
History of Present Illness Consult date: 07/20/24 Requesting physician: Alan Munoz Reason for consult: dyspnea, hypoxemia Chief complaint: Severe shortness of breath, cough, congestion History of present illness: This is a 64-year-old male patient with chronic and ongoing tobacco dependence, atrial fibrillation, diabetes mellitus, hypertension, hyperlipidemia who has a 1 week history of increasing shortness of breath, cough congestion fever and chills. He came into the emergency room last evening with severe shortness of breath requiring BiPAP support which was 14/5 and 50% FiO2. Chest x-ray revealed cardiomegaly and airspace disease most notably in the left mid lower lung zone suggestive of multifocal pneumonia and possible fluid volume overload. White count 10.5. Hemoglobin 14.3. Platelets 156. Sodium 135. Potassium 4.3. Bicarb 27. BUN 29. Creatinine 1.86. Glucose 174. Troponins 0.327, 0.550, 0.5-2. He is initiated on a heparin drip. proBNP was 13,000. Procalcitonin 2.38. He did test positive for influenza A. Initiated on Tamiflu. Initiated on ceftriaxone. He is seen today in consultation in the emergency department. He is currently sitting up on the stretcher. Awake and alert. He is on 6 L high flow nasal cannula. He is breathing a bit easier today compared to yesterday. Still with a loose nonproductive cough. He did have a Tmax of 102.3. Current temperature 99.1. He is hemodynamically stable. Review of Systems REVIEW OF SYSTEMS: CONSTITUTIONAL: Denies any recent significant weight loss or weight gain. EYES: Denies change in vision. EARS, NOSE, MOUTH, THROAT: Denies headaches, denies sore throat. CARDIOVASCULAR: Denies chest pain, palpitations or syncopal episodes. RESPIRATORY: Positive for shortness of breath, cough, congestion no hemoptysis. GASTROINTESTINAL: Denies change in appetite, denies abdominal pain GENITOURINARY: Denies hematuria, denies infections. MUSKULOSKELETAL: Denies pain, denies swelling. INTEGUMENTARY: Denies rash, denies eczema. NEUROLOGICAL: Denies recent memory loss, no recent seizure activity. PSYCHIATRIC: Denies anxiety, denies depression. HEMATOLOGIC/LYMPHATIC: Denies anemia, denies enlarged lymph nodes. Past Medical History Past Medical History: Atrial Fibrillation, Diabetes Mellitus, Hyperlipidemia, Hypertension, Pneumonia, Supraventricular Tachycardia (SVT) Additional Past Medical History / Comment(s): a fib, causes shortness of breath, can feel irregular heartbeat History of Any Multi-Drug Resistant Organisms: None Reported Past Surgical History: Cholecystectomy, Heart Catheterization Additional Past Surgical History / Comment(s): Colonoscopy Past Anesthesia/Blood Transfusion Reactions: No Reported Reaction Past Psychological History: No Psychological Hx Reported Smoking Status: Current every day smoker Past Alcohol Use History: Occasional Past Drug Use History: Marijuana - Past Family History Father Family Medical History: No Reported History Mother Family Medical History: Coronary Artery Disease (CAD) Medications and Allergies Home Medications Medication Instructions Recorded Confirmed Type Apixaban [Eliquis] 5 mg PO BID 04/12/22 07/20/24 History Furosemide [Lasix] 40 mg PO DAILY 04/12/22 07/20/24 History Amiodarone [Cordarone] 200 mg PO DAILY 12/31/22 07/20/24 History Metoprolol Succinate (ER) [Toprol 25 mg PO DAILY 07/20/24 07/20/24 History Xl] lisinopriL [Zestril] 20 mg PO BID 07/20/24 07/20/24 History Allergies Allergy/AdvReac Type Severity Reaction Status Date / Time No Known Allergies Allergy Verified 07/20/24 07:12 Physical Exam Vitals: Vital Signs Temp Pulse Resp BP Pulse Ox FiO2 07/20/24 13:15 77 30 H 94 L 50 07/20/24 12:41 99.1 F 76 22 164/96 91 L 07/20/24 12:13 66 96 07/20/24 11:28 59 L 18 105/79 60 L 07/20/24 09:52 98.4 F 07/20/24 08:56 102.3 F H 74 18 105/79 89 L 07/20/24 08:05 72 07/20/24 07:46 71 94 L 07/20/24 05:00 75 28 H 161/88 96 07/20/24 04:10 50 07/20/24 02:44 58 L 21 122/67 99 07/20/24 02:07 50 07/20/24 00:59 65 07/20/24 00:49 63 07/19/24 22:18 100 07/19/24 22:06 91 40 H 177/97 96 07/19/24 21:56 93 33 H 201/113 98 Intake and Output 07/19/24 07/20/24 07/20/24 22:59 06:59 14:59 Other: Weight 95.254 kg GENERAL EXAM: Alert, pleasant 64-year-old male, on 6 L high flow nasal cannula, fairly comfortable in no apparent distress. HEAD: Normocephalic. EYES: Normal reaction of pupils, equal size. NOSE: Clear with pink turbinates. THROAT: No erythema or exudates. NECK: No masses, no JVD. CHEST: No chest wall deformity. LUNGS: Equal air entry with crackles in the bilateral bases, few scattered rhonchi, diminished. CVS: S1 and S2 normal with no audible murmur, regular rhythm. ABDOMEN: No hepatosplenomegaly, normal bowel sounds, no guarding or rigidity. SPINE: No scoliosis or deformity SKIN: No rashes CENTRAL NERVOUS SYSTEM: No focal deficits, tone is normal in all 4 extremities. EXTREMITIES: There is no peripheral edema. No clubbing, no cyanosis. Laxmi pheral pulses are intact. Results - Laboratory Findings CBC and BMP: 07/20/24 02:30 07/20/24 02:30 PT/INR, D-dimer PT 11.9 sec (10.0-12.5) 07/19/24 22:14 INR 1.1 (<1.2) 07/19/24 22:14 Abnormal lab findings: Abnormal Labs 07/19/24 07/19/24 07/19/24 02:30 22:14 22:14 WBC 12.7 H Neutrophils # 8.6 H APTT Sodium 136 L Chloride Carbon Dioxide 21 L BUN 25 H Creatinine 1.59 H Glucose 228 H Plasma Lactic Acid Rodri Troponin I Procalcitonin 2.38 H Influenza Type A (PCR) 07/19/24 07/19/24 07/19/24 22:14 22:14 22:18 WBC Neutrophils # APTT Sodium Chloride Carbon Dioxide BUN Creatinine Glucose Plasma Lactic Acid Rodri 3.2 H* Troponin I 0.102 H* Procalcitonin Influenza Type A (PCR) Detected A 07/20/24 07/20/24 07/20/24 02:30 02:30 09:43 WBC Neutrophils # APTT 69.9 H Sodium 135 L Chloride 97 L Carbon Dioxide BUN 29 H Creatinine 1.86 H Glucose 174 H Plasma Lactic Acid Rodri Troponin I 0.327 H* Procalcitonin Influenza Type A (PCR) 07/20/24 07/20/24 09:43 12:56 WBC Neutrophils # APTT Sodium Chloride Carbon Dioxide BUN Creatinine Glucose Plasma Lactic Acid Rodri Troponin I 0.550 H* 0.522 H* Procalcitonin Influenza Type A (PCR) - Diagnostic Findings Chest x-ray: image reviewed Assessment and Plan Assessment: Acute hypoxemic respiratory failure secondary to an acute exacerbation of chronic obstructive pulmonary disease complicated by influenza A Acute influenza A infection Acute exacerbation of chronic systolic congestive heart failure with an ejection fraction of 35% Troponin leak possible non-ST segment elevation myocardial infarction secondary to above History of atrial fibrillation with previous cardioversion maintained on amiodarone and Eliquis Chronic tobacco dependence with suspected underlying COPD Hypertension Hyperlipidemia Diabetes mellitus, type II Plan: The patient was seen and evaluated Imaging, labs and medications reviewed Add Lasix 20 mg IV every 8 hours Continue DuoNeb inhalations, add Symbicort Continue heparin drip Cardiology consult Continue ceftriaxone Continue Tamiflu Titrate the FiO2 as tolerated We will continue to follow and make further recommendations based on his clinical status I have personally seen and examined the patient, performed the documentation and the assessment and plan as written. Number of minutes spent on the visit: 20 Dictation was produced using [employer] dictation software. Please excuse any grammatical, word or spelling errors.
[2024-07-20] MEDS: ATORVASTATIN 40 MG TAB PO SCH (21:33)
--- NOTE | 2024-07-21 07:01 | XR ---
EXAMINATION TYPE: XR chest 1V portable DATE OF EXAM: 07/21/2024 CLINICAL HISTORY: Difficulty breathing progress study. TECHNIQUE: Single AP portable upright view of the chest is obtained. COMPARISON: Chest x-ray from 2 days earlier FINDINGS: Persistent cardiomegaly with bilateral increased opacities and likely small bilateral pleu ral effusions. Osseous structures are intact. IMPRESSION: Findings favor CHF exacerbation/fluid overload state. Correlate clinically. Areas of unde rlying acute infiltrate cannot be excluded. No significant change from most recent x-ray. [facility], , 07/21/2024 6:58 AM
[2024-07-21 07:16] LABS: Basophils % (A) 0 %; Eosinophils % (A) 1 %; HCT 45.5 % (39.0-53.0); HGB 14.1 gm/dL (13.0-17.5); Lymphocytes % (A) 13 %; MCH 29.5 pg (25.0-35.0); MCHC 30.9 g/dL (31.0-37.0); MCV 95.7 fL (80.0-100.0); Monocytes # (A) 0.5 k/uL (0-1.0); Monocytes % (A) 6 %; Neutrophils # (A) 5.7 k/uL (1.3-7.7); Neutrophils % (A) 79 %; Platelet Count 168 k/uL (150-450); RBC 4.76 m/uL (4.30-5.90); RDW 12.7 % (11.5-15.5); WBC 7.2 k/uL (3.8-10.6)
[2024-07-21 07:43] LABS: INR 1.1 (<1.2); Prothrombin Time 12.1 sec (10.0-12.5)
[2024-07-21 07:49] LABS: Partial Thromboplastin Time 103.7 sec (22.0-30.0)
[2024-07-21] MEDS: ASPIRIN 81 MG PO SCH (07:58)
[2024-07-21 08:18] LABS: African American GFR (CKD) 36 (>60 ml/min/1.73 sqM); Anion Gap 10 mmol/L; Blood Urea Nitrogen 44 mg/dL (9-20); Calcium 8.5 mg/dL (8.4-10.2); Carbon Dioxide 27 mmol/L (22-30); Chloride 96 mmol/L (98-107); Glucose 97 mg/dL (74-99); Non-African American GFR(CKD) 32 (>60 ml/min/1.73 sqM); Potassium 4.2 mmol/L (3.5-5.1); Sodium 133 mmol/L (137-145)
--- NOTE | 2024-07-21 11:48 | CA ---
Transthoracic Echo Report Name: Woodrow Barker Age: 64 Gender: M : 1960 Exam Date: 07/20/2024 10:26 Exam Location: [facility] Ht (in): 67 Wt (lb): 210 Ordering Physician: Alan Munoz MD Attending/Referring Phys: Relocation Counselor Kely Handley RDCS Procedure CPT: Indications: chf Cardiac Hx: Flu+ Technical Quality: Fair Contrast 1: Total Dose (mL): Contrast 2: Total Dose (mL): MEASUREMENTS (Male / Female) Normal Values 2D ECHO LV Diastolic Diameter PLAX 5.0 cm 4.2 - 5.9 / 3.9 - 5.3 cm LV Systolic Diameter PLAX 4.2 cm IVS Diastolic Thickness 1.7 cm 0.6 - 1.0 / 0.6 - 0.9 cm LVPW Diastolic Thickness 1.4 cm 0.6 - 1.0 / 0.6 - 0.9 cm LV Relative Wall Thickness 0.6 RV Internal Dim ED PLAX 2.9 cm LVOT Diameter 1.8 cm LA Systolic Diameter LX 4.8 cm 3.0 - 4.0 / 2.7 - 3.8 cm LV Diastolic Volume MOD BP 94.0 cm??? 67 - 155 / 56 - 104 cm??? LV Systolic Volume MOD BP 42.7 cm??? - 58 / 19 - 49 cm??? LV Ejection Fraction MOD BP 54.6 % >= 55 % LV Cardiac Index MOD BP 2046.7 cm???/min???m??? LV Diastolic Volume MOD 4C 91.6 cm??? LV Systolic Volume MOD 4C 53.0 cm??? LV Ejection Fraction MOD 4C 42.2 % LV Cardiac Index MOD 4C 1543.0 cm???/min???m??? LV Diastolic Length 4C 8.0 cm LV Systolic Length 4C 6.7 cm LV Diastolic Volume MOD 2C 95.7 cm??? LV Systolic Volume MOD 2C 43.8 cm??? LV Ejection Fraction MOD 2C 54.2 % LV Cardiac Index MOD 2C 2070.5 cm???/min???m??? LV Diastolic Length 2C 8.0 cm LV Systolic Length 2C 6.6 cm LA Volume 80.0 cm??? 18 - 58 / 22 - 52 cm??? LA Volume Index 37.1 cm???/m??? 16 - 28 cm???/m??? M-MODE Aortic Root Diameter MM 3.5 cm LA Systolic Diameter MM 4.0 cm LA Ao Ratio MM 1.1 AV Cusp Separation MM 1.5 cm DOPPLER MV Area PHT 2.9 cm??? Mitral E Point Velocity 71.5 cm/s Mitral A Point Velocity 61.4 cm/s Mitral E to A Ratio 1.2 MV Deceleration Time 265.5 ms TR Peak Velocity 352.7 cm/s TR Peak Gradient 49.8 mmHg Right Ventricular Systolic Press 54.8 mmHg FINDINGS Left Ventricle Left ventricular ejection fraction is estimated at 45-50%. Moderately increased septal wall thickness. Moderately reduced global left ventricular systolic function. Left ventricular cavity size normal. Right Ventricle Mild right ventricular dilatation. Moderate pulmonary hypertension. Right Atrium Moderate right atrial dilatation. Left Atrium Moderately increased left atrial diameter. Moderately increased left atrial volume. Mildly increased left atrial area. Mitral Valve Structurally normal mitral valve. Moderate mitral annular calcification. Trace to mild mitral regurgitation. Aortic Valve Trileaflet aortic valve. Diffuse thickening (sclerosis) of the aortic valve cusps without reduced excursion. No aortic regurgitation. Tricuspid Valve Structurally normal tricuspid valve. Moderate tricuspid regurgitation. No tricuspid stenosis. Pulmonic Valve Structurally normal pulmonic valve. Trace pulmonic regurgitation. No pulmonic stenosis. Pericardium No pericardial or pleural effusion. Aorta Aorta at upper limits of normal. CONCLUSIONS Left ventricular ejection fraction is estimated at 45-50%. Moderately increased septal wall thickness. Moderate biatrial dilatation Moderate tricuspid regurgitation. Previewed by: Dr Patel Soto (Electronically Signed) Final Date: 21 July 2024 11:47
[2024-07-21] MEDS: AZITHROMYCIN 500 MG in SODIUM CHLORIDE 0.9% 250 ML IVPB SCH (12:04)
[2024-07-21] MEDS: APIXABAN 5 MG TAB PO SCH (12:04)
--- NOTE | 2024-07-21 13:21 | P.PN ---
Subjective Progress Note Date: 07/21/24 Patient is a 64-year-old male with a PMH of A-fib on Eliquis, COPD not on home oxygen, type II DM, hypertension, hyperlipidemia, CKD stage IIIa who presents to the emergency room with complaints of shortness of breath and cough. Patient reports that over the past 1 week he has been experiencing gradually worsening persistent cough. Reports that the cough is nonproductive. He also reports exertional dyspnea. Denies experiencing fever or chills. Also denies chest discomfort, nausea, vomiting, abdominal pain, diarrhea. Chest x-ray in the emergency room revealed cardiomegaly along with findings of multifocal pneumonia. EKG revealed sinus rhythm at 93 bpm with intraventricular conduction delay as reviewed by me. Laboratory evaluation did reveal influenza type a positive, troponin 0.102, proBNP 12,900, lactic acid 3.3, glucose 228, BUN 25, creatinine 1.59, and WBC count 12.7 with neutrophilic predominance. Patient was reportedly severely hypoxic and in respiratory distress upon EMS arrival at the scene and was started on BiPAP. 07/21/2024 patient seen and examined at bedside. No acute events overnight. No new complaints. WBC 7.2, hemoglobin 14.1, platelet count 1 68,000, PT 12.1, INR 1.1, PTT 103.7, sodium 133, potassium 4.2, chloride 96, bicarb 27, BUN 44, creatinine 2.12, glucose 97. Troponin increased to 0.55 and has flattened. Chest x-ray done showed findings favor CHF exacerbation/fluid overload state. Areas of underlying acute infiltrate cannot be excluded. No significant change from most recent x-ray. Review of systems: Pertinent positives and negatives as discussed in HPI, a complete review of systems was performed and all other systems are negative. Pertinent imaging and labs reviewed. Physical examination: Vital signs reviewed General: non toxic, no distress, appears at stated age, high flow nasal cannula noted Derm: no unusual rashes/lesions, warm Head: atraumatic, normocephalic, symmetric Eyes: EOMI, anicteric sclera, pupils equal round reactive to light ENT: Nose and ears atraumatic Neck: No cervical lymphadenopathy, trachea midline, supple Mouth: no lip lesion, mucus membranes moist Cardiovascular: S1S2 reg, no murmur Lungs: Bibasilar rhonchi, no rhonchi, no rales, no accessory muscle use Abdominal: soft, nontender to palpation, no guarding Ext: muscle strength 5 out of 5 in all 4 extremities grossly, no gross muscle atrophy, no contractures, positive dorsalis pedis pulse bilateral, no edema Neuro: CN II-XI grossly intact, no gross focal neuro deficits Psych: Alert and oriented x3, appropriate affect and mood Assessment/Plan: #. Sepsis secondary to influenza pneumonia, unable to rule out bacterial pneumonia #. Acute hypoxic respiratory failure, secondary to above -Procalcitonin elevated at 2.38 -Supportive oxygen as need -Received one-time dose Zithromax 500 mg p.o. and Rocephin 2 g IVPB in the ED -Continue with Rocephin 2 g IVPB and Zithromax 500 mg IVPB -Continue Tamiflu 30 mg p.o. every 12 hours -Blood culture pending -Urine culture pending -Monitor CBC #. Heart failure with reduced ejection fraction EF of 45 to 50%, not on GDMT #. Hyponatremia secondary to above -Echocardiogram in 07/20/2024 showed ejection fracture 45-50% with moderately increased septal wall thickness, biatrial dilatation, moderate tricuspid valve regurgitation -Lasix 20 mg IV every 8 discontinued due by cardiology -Strict TYLER's -Daily weights -Fluid restriction -Monitor BMP for electrolytes and renal function -Cardiology consulted -Metoprolol 25 mg daily #. Acute kidney injury on CKD -Likely due to diuresis -Lasix 20 mg IV discontinued. Will reevaluate patient volume status -Monitor BMP -Avoid nephrotoxic agents #. NSTEMI -EKG revealed sinus rhythm at 93 bpm with intraventricular conduction delay on admission -Patient has no chest pain as of now -Troponins flattened at 0.5 -IV heparin for 48 hours. Now discontinued -Cardiology initiated atorvastatin 40 mg daily #. Lactic acidosis, resovled Chronic conditions: #. A-fib #. COPD #. Type II DM #. Hypertension #. Hyperlipidemia -Lisinopril held due to DARI -Continue Eliquis 5 mg twice daily, amiodarone 200 mg p.o. daily, metoprolol 25 mg daily F: Restrict fluids due to liters today E: Monitor electrolytes particularly sodium and potassium N: Heart healthy diet A: Can ambulate with assistance DVT prophylaxis: Eliquis 5 mg p.o. daily Gabrielle Song MD PGY-1/Radiator Tester Dictation was produced using [employer] dictation software. please excuse any grammatical, word or spelling errors. no new complaints. Tyler daily weights. IV heparin. Echo pending. Added azithromycin 500mg IVPB daily I have seen and evaluated the patient today. Discussed with the resident and agree with the residents finding and plan as documented in the resident's note. Changes highlighted in blue font. Renal US ordered, bladder scan PRN, UA ordered. Objective - Vital Signs Vital signs: Vital Signs Temp 99.2 F 07/21/24 08:00 Pulse 80 07/21/24 08:11 Resp 18 07/21/24 08:00 BP 142/74 07/21/24 08:00 Pulse Ox 91 L 07/21/24 08:00 FiO2 50 07/21/24 03:38 Intake & Output 07/20/24 07/21/24 07/21/24 18:59 06:59 18:59 Intake Total 118 250 142 Balance 118 250 142 Weight 95.254 kg 87.4 kg Intake: Intake, IV Titration 250 24 Amount Heparin Sod,Pork in 0.45% 250 24 NaCl 25,000 unit In 0.45 % NaCl 1 250ml.bag @ 10. 498 UNITS/KG/HR 10 mls/hr IV .Q24H [facility] Rx#: [id number] Oral 118 118 Other: Voiding Method Bedside Commode Bedside Commode # Voids 0 - Labs CBC & Chem 7: 07/21/24 06:55 07/21/24 06:55 Labs: Abnormal Lab Results - Last 24 Hours (Table) 07/19/24 07/20/24 07/20/24 Range/Units 02:30 09:43 09:43 MCHC (31.0-37.0) g/dL APTT 69.9 H (22.0-30.0) sec Sodium (137-145) mmol/L Chloride (98-107) mmol/L BUN (9-20) mg/dL Creatinine (0.66-1.25) mg/dL Troponin I 0.550 H* (0.000-0.034) ng/mL Procalcitonin 2.38 H (0.02-0.50) ng/mL 07/20/24 07/21/24 07/21/24 Range/Units 12:56 06:55 06:55 MCHC 30.9 L (31.0-37.0) g/dL APTT 103.7 H* (22.0-30.0) sec Sodium (137-145) mmol/L Chloride (98-107) mmol/L BUN (9-20) mg/dL Creatinine (0.66-1.25) mg/dL Troponin I 0.522 H* (0.000-0.034) ng/mL Procalcitonin (0.02-0.50) ng/mL 07/21/ Range/Units 06:55 MCHC (31.0-37.0) g/dL APTT (22.0-30.0) sec Sodium 133 L (137-145) mmol/L Chloride 96 L (98-107) mmol/L BUN 44 H (9-20) mg/dL Creatinine 2.12 H (0.66-1.25) mg/dL Troponin I (0.000-0.034) ng/mL Procalcitonin (0.02-0.50) ng/mL
--- NOTE | 2024-07-21 14:10 | P.PN ---
Subjective Progress Note Date: 07/21/24 Reason for Consult (text): NSTEMI History of present illness: This is a 64-year-old male patient of Dr. Toledo with past medical history of chronic kidney disease stage III, COPD tobacco use, alcohol abuse, hypertension, diabetes mellitus type 2, persistent atrial fibrillation, systolic heart failure, recent GI bleed, family history of premature coronary artery disease. We have been asked to evaluate the patient for NSTEMI. Patient states he had a cough for 10 days that was dry with increasing shortness of breath but gradually worsening. He does not have home oxygen therapy. He denies any chest pain or chest pressure. Prior to this episode, patient was feeling well with no shortness of breath. He is now not eating or drinking very much with decreased appetite. At home, he states he was taking all of his prescribed medications. He is urinating okay. He presented with a blood pressure of 200/113. He does not check his blood pressure at home. Temperature max 102.3. Blood pressure now 161/88, heart rate 75, pulse ox 96% on BiPAP. He denies smoking and denies alcohol use. Patient has been started on heparin drip. Patient is seen today in the emergency center waiting for a bed on the cardiac stepdown unit. -EKG: Sinus rhythm with IVCD -Chest x-ray: Cardiomegaly. Areas of airspace disease most notably at the left mid and lower lung suggestive of multifocal pneumonia. -Laboratory studies: WBC initially 12.7 and repeat 10.5, hemoglobin 14.3. Sodium 135, potassium 4.3, BUN 29 creatinine 1.86. Lactic acid 3.2 followed by 1.9. Troponin 0.102, 0.327. Influenza A detected. -Home cardiac medications: Amiodarone 200 mg daily, Eliquis 5 mg twice daily, Lasix 40 mg daily, lisinopril 20 mg twice daily, metoprolol succinate 25 mg daily. -ABHIIJT and cardioversion performed on 01/03/2023 revealed aortic valve is tricuspid, functioning normally with trace AI. Mitral valve appears to be normal with mild regurgitation. Tricuspid valve appears to be normal with moderate to severe tricuspid regurgitation. There is a PFO. Left atrial appendage is free of clot. EF 35%. -ABHIJIT and cardioversion performed 04/16/2022. Dobutamine stress echocardiogram performed in the office on 12/27/2020 revealed nondiagnostic EKG portion secondary to baseline EKG abnormalities. Normal stress echo portion without inducible ischemia. Normal left ventricular ejection fraction of 60%. 07/21 Patient seen and examined on the cardiac stepdown unit. Patient states he still has a significant amount of coughing. No lower extremity edema. He states he is having some chills as well. Patient states he is urinating a lot but not eating very much with decreased appetite. He has been maintained on IV Lasix at 20 mg every 8 hours as well as heparin drip. No complaints of chest pain. Blood pressure 119/55, heart rate 71, pulse ox 90% on BiPAP. Repeat blood work reveals WBC 7.2, hemoglobin 14.1. Sodium 133, BUN 44 and creatinine 2.12. Echocardiogram reveals EF of 45 to 50%, moderately increased septal wall thickness, moderate biatrial dilatation, moderate tricuspid regurgitation. Physical examination: Gen: This is a 64-year-old male in no acute respiratory distress. VS: reviewed HEENT: Head is atraumatic, normocephalic. Pupils equal, round. Sclerae is anicteric. NECK: Supple. No JVD. LUNGS: Scattered rhonchi. No intercostal retractions. HEART: Irregular rate and rhythm. No murmur. ABDOMEN: Soft No tenderness. EXTREMITIES: No pedal edema. No calf tenderness. NEUROLOGICAL: Patient is awake, alert and oriented x3. Assessment: Shortness of breath with acute hypoxic respiratory failure secondary to influenza, pneumonia, and component of heart failure NSTEMI possibly secondary to sepsis, influenza and pneumonia Influenza A Pneumonia Mild acute on chronic systolic heart failure Acute kidney injury Lactic acidosis Cardiomyopathy with previous EF of 15 to 20%, possibly tachycardia induced Hypertension Hyperlipidemia Persistent atrial fibrillation status post previous cardioversion x 2, currently in sinus rhythm Diabetes mellitus type 2 Plan: Continue patient's home cardiac medications Discontinue heparin drip and resume Eliquis Continue patient on aspirin and atorvastatin 40 mg Discontinue IV Lasix Monitor CHOCO, daily weights, electrolytes and renal function Further recommendations to follow based upon clinical course Nurse practitioner note has been reviewed, I agree with documented findings and plan of care. Patient was seen and examined. Objective - Vital Signs Vital signs: Vital Signs Temp 99.2 F 07/21/24 08:00 Pulse 80 07/21/24 08:11 Resp 18 07/21/24 08:00 BP 142/74 07/21/24 08:00 Pulse Ox 91 L 07/21/24 08:00 FiO2 50 07/21/24 03:38 Intake & Output 07/20/24 07/21/24 07/21/24 18:59 06:59 18:59 Intake Total 118 250 142 Balance 118 250 142 Weight 95.254 kg 87.4 kg Intake: Intake, IV Titration 250 24 Amount Heparin Sod,Pork in 0.45% 250 24 NaCl 25,000 unit In 0.45 % NaCl 1 250ml.bag @ 10. 498 UNITS/KG/HR 10 mls/hr IV .Q24H [facility] Rx#: [id number] Oral 118 118 Other: Voiding Method Bedside Commode Bedside Commode # Voids 0 - Labs CBC & Chem 7: 07/21/24 06:55 07/21/24 06:55 Labs: Abnormal Lab Results - Last 24 Hours (Table) 07/20/24 07/21/24 07/21/24 Range/Units 12:56 06:55 06:55 MCHC 30.9 L (31.0-37.0) g/dL APTT 103.7 H* (22.0-30.0) sec Sodium (137-145) mmol/L Chloride (98-107) mmol/L BUN (9-20) mg/dL Creatinine (0.66-1.25) mg/dL Troponin I 0.522 H* (0.000-0.034) ng/mL 07/21/24 Range/Units 06:55 MCHC (31.0-37.0) g/dL APTT (22.0-30.0) sec Sodium 133 L (137-145) mmol/L Chloride 96 L (98-107) mmol/L BUN 44 H (9-20) mg/dL Creatinine 2.12 H (0.66-1.25) mg/dL Troponin I (0.000-0.034) ng/mL
--- NOTE | 2024-07-21 14:57 | P.PN ---
Subjective Progress Note Date: 07/21/24 This is a 64-year-old male patient with chronic and ongoing tobacco dependence, atrial fibrillation, diabetes mellitus, hypertension, hyperlipidemia who has a 1 week history of increasing shortness of breath, cough congestion fever and chills. He came into the emergency room last evening with severe shortness of breath requiring BiPAP support which was 14/5 and 50% FiO2. Chest x-ray revealed cardiomegaly and airspace disease most notably in the left mid lower lung zone suggestive of multifocal pneumonia and possible fluid volume overload. White count 10.5. Hemoglobin 14.3. Platelets 156. Sodium 135. Potassium 4.3. Bicarb 27. BUN 29. Creatinine 1.86. Glucose 174. Troponins 0.327, 0.550, 0.5-2. He is initiated on a heparin drip. proBNP was 13,000. Procalcitonin 2.38. He did test positive for influenza A. Initiated on Tamiflu. Initiated on ceftriaxone. He is seen today in consultation in the emergency department. He is currently sitting up on the stretcher. Awake and alert. He is on 6 L high flow nasal cannula. He is breathing a bit easier today compared to yesterday. Still with a loose nonproductive cough. He did have a Tmax of 102.3. Current temperature 99.1. He is hemodynamically stable. The patient is seen today July 21, 2024 in follow-up on the regular medical floor. He is awake and alert in no acute distress. Doing slightly better today compared to yesterday. He is still requiring 10 L high flow nasal cannula. Chest x-ray continues to show evidence of fluid volume overload/CHF. Echocardiogram reveals mildly impaired left ventricular systolic function with ejection fraction of 45 to 50%. Moderately reduced global LV function. Blood culture is pending. White count 7.2. Hemoglobin 14.1. Platelets 168. Sodium 133. Potassium 4.2. Bicarb 27. BUN 44. Creatinine 2.12. Stool for occult blood was negative. Since. Anticoagulated with Eliquis. Antibiotics in the form of ceftriaxone and azithromycin. He is continued on Tamiflu. Lasix discontinued per cardiology. Objective - Vital Signs Vital signs: Vital Signs Temp 99.1 F 07/21/24 12:00 Pulse 71 07/21/24 12:00 Resp 23 07/21/24 12:00 BP 119/55 07/21/24 12:00 Pulse Ox 90 L 07/21/24 12:00 FiO2 60 07/21/24 12:10 Intake & Output 07/20/24 07/21/24 07/21/24 18:59 06:59 18:59 Intake Total 118 250 142 Balance 118 250 142 Weight 95.254 kg 87.4 kg Intake: Intake, IV Titration 250 24 Amount Heparin Sod,Pork in 0.45% 250 24 NaCl 25,000 unit In 0.45 % NaCl 1 250ml.bag @ 10. 498 UNITS/KG/HR 10 mls/hr IV .Q24H [facility] Rx#: [id number] Oral 118 118 Other: Voiding Method Bedside Commode Bedside Commode # Voids 0 - Exam GENERAL EXAM: Alert, 64-year-old male, on 10 L high flow nasal cannula, fairly comfortable in no apparent distress. HEAD: Normocephalic. EYES: Normal reaction of pupils, equal size. NOSE: Clear with pink turbinates. THROAT: No erythema or exudates. NECK: No masses, no JVD. CHEST: No chest wall deformity. LUNGS: Equal air entry with crackles in the bilateral bases, few scattered rhonchi, diminished. CVS: S1 and S2 normal with no audible murmur, regular rhythm. ABDOMEN: No hepatosplenomegaly, normal bowel sounds, no guarding or rigidity. SPINE: No scoliosis or deformity SKIN: No rashes CENTRAL NERVOUS SYSTEM: No focal deficits, tone is normal in all 4 extremities. EXTREMITIES: There is 1+ peripheral edema. No clubbing, no cyanosis. Pe ripheral pulses are intact. - Labs CBC & Chem 7: 07/21/24 06:55 07/21/24 06:55 Labs: Abnormal Lab Results - Last 24 Hours (Table) 07/21/24 07/21/24 07/21/24 Range/Units 06:55 06:55 06:55 MCHC 30.9 L (31.0-37.0) g/dL APTT 103.7 H* (22.0-30.0) sec Sodium 133 L (137-145) mmol/L Chloride 96 L (98-107) mmol/L BUN 44 H (9-20) mg/dL Creatinine 2.12 H (0.66-1.25) mg/dL Microbiology - Last 24 Hours (Table) 07/20/24 00:46 Blood Culture - Preliminary Blood Assessment and Plan Assessment: Acute hypoxemic respiratory failure secondary to an acute exacerbation of chronic obstructive pulmonary disease complicated by influenza A and possible underlying pneumonia. Procalcitonin 2.38. Acute influenza A infection Acute exacerbation of chronic systolic congestive heart failure with an ejection fraction now 45-50% Troponin leak possible non-ST segment elevation myocardial infarction secondary to above Acute kidney injury History of atrial fibrillation with previous cardioversion maintained on amioda cirilo and Eliquis Chronic tobacco dependence with suspected underlying COPD Hypertension Hyperlipidemia Diabetes mellitus, type II Plan: The patient was seen and evaluated Imaging, labs and medications reviewed Continue DuoNeb inhalations, Symbicort Continue heparin drip Cardiology discontinued Lasix and heparin drip Consult nephrology for acute kidney injury Continue ceftriaxone and azithromycin Continue Tamiflu Anticoagulated with Eliquis Titrate the FiO2 as tolerated We will continue to follow I have personally seen and examined the patient, performed the documentation and the assessment and plan as written. Number of minutes spent on the visit: 10 Dictation was produced using [employer] dictation software. Please excuse any grammatical, word or spelling errors.
--- NOTE | 2024-07-21 16:31 | US ---
EXAMINATION TYPE: US renals and bladder DATE OF EXAM: 07/21/2024 COMPARISON: NONE CLINICAL INDICATION: Male, 64 years old with history of DARI oN CKD; CKD TECHNIQUE: Grayscale imaging of the bilateral kidneys and urinary bladder: FINDINGS: EXAM MEASUREMENTS: Right Kidney: 11.0 x 5.0 x 5.1 cm Left Kidney: 11.4 x 5.0 x 5.7 cm Right Kidney: No hydronephrosis or masses seen Left Kidney: No hydronephrosis or masses seen Bladder: wnl Bilateral Jets seen: No There is no evidence for hydronephrosis at this point in time. No nephrolithiasis is seen. No alber s are identified. Cortical medullary differentiation is preserved bilaterally. The urinary bladder i s anechoic. IMPRESSION: No hydronephrosis or nephrolithiasis. [facility], , 07/21/2024 4:29 PM
[2024-07-21] MEDS: FUROSEMIDE 10 MG/ML 4 ML VIAL IV STA (18:07)
[2024-07-21 22:44] LABS: Appearance,Urine Cloudy (Clear); Bacteria,Urine Rare /hpf; Bilirubin,Urine Negative (Negative); Blood,Urine Moderate (Negative); Color,Urine Yellow; Glucose,Urine (UA) Negative (Negative); Hyaline Casts,Urine 9 /lpf (0-2); Ketones,Urine Negative (Negative); Leukocyte Esterase,Urine Negative (Negative); Mucus,Urine Rare /hpf; Nitrite,Urine Negative (Negative); PH, Urine 5.5 (5.0-8.0); Protein,Urine 1+ (Negative); RBC,Urine 1 /hpf (0-5); Specific Gravity,Urine 1.014 (1.001-1.035); Urobilinogen,Urine <2.0 mg/dL (<2.0); WBC,Urine 1 /hpf (0-5)
[2024-07-22 07:14] LABS: African American GFR (CKD) 39 (>60 ml/min/1.73 sqM); Anion Gap 5 mmol/L; Blood Urea Nitrogen 45 mg/dL (9-20); Calcium 7.8 mg/dL (8.4-10.2); Carbon Dioxide 29 mmol/L (22-30); Chloride 94 mmol/L (98-107); Glucose 113 mg/dL (74-99); Non-African American GFR(CKD) 34 (>60 ml/min/1.73 sqM); Potassium 3.6 mmol/L (3.5-5.1); Sodium 128 mmol/L (137-145)
[2024-07-22 07:29] LABS: Basophils % (A) 0 %; Eosinophils % (A) 0 %; HCT 39.6 % (39.0-53.0); HGB 12.8 gm/dL (13.0-17.5); Lymphocytes # (A) 0.7 k/uL (1.0-4.8); Lymphocytes % (A) 8 %; MCH 30.2 pg (25.0-35.0); MCHC 32.3 g/dL (31.0-37.0); MCV 93.7 fL (80.0-100.0); Mean Platelet Volume 10.6; Monocytes # (A) 0.4 k/uL (0-1.0); Monocytes % (A) 5 %; Neutrophils # (A) 7.5 k/uL (1.3-7.7); Neutrophils % (A) 86 %; Platelet Count 139 k/uL (150-450); RBC 4.23 m/uL (4.30-5.90); RDW 13.1 % (11.5-15.5); WBC 8.7 k/uL (3.8-10.6)
[2024-07-22] MEDS: FUROSEMIDE 10 MG/ML 4 ML VIAL IV STA (08:18)
[2024-07-22 08:21] LABS: ABG Base Excess 0.1 mmol/L; ABG HCO3 24 mmol/L (21-25); ABG Oxygen Saturation 95.7 % (94-97); ABG PCO2 38 mmHg (35-45); ABG PH 7.42 (7.35-7.45); ABG PO2 74 mmHg (83-108); ABG TCO2 26 mmol/L (19-24); Allen Test Performed? Yes
--- NOTE | 2024-07-22 08:23 | XR ---
EXAMINATION TYPE: XR chest 1V DATE OF EXAM: 07/22/2024 CLINICAL HISTORY: Difficulty breathing progress study. TECHNIQUE: Single AP portable upright view of the chest is obtained. COMPARISON: Chest x-ray from one day earlier FINDINGS: Persistent cardiomegaly with bilateral multifocal increased opacities and likely small augusto ateral pleural effusions. Osseous structures are intact. IMPRESSION: Persistent cardiomegaly with bilateral multifocal acute infiltrates and/or edema. Correla te clinically. [facility], , 07/22/2024 8:20 AM
[2024-07-22] MEDS: HYDROCORTISONE SUCCINATE 100 MG/2 ML VIAL IV SCH (11:37)
--- NOTE | 2024-07-22 11:40 | P.NPCON ---
History of Present Illness - Reason for Consult Consult date: 07/22/24 - History of Present Illness Reason for consult: DARI 64-year-old male with PMH of A-fib maintained on Eliquis, non oxygen dependent COPD, type 2 diabetes mellitus, hypertension, hyperlipidemia, CKD stage IIIa presented to the emergency department with complaints of worsening shortness of breath cough. Reporting that over the past week or so he has had a worsening nonproductive cough, and worsening exertional dyspnea. Endorses producing urine without any dysuria or hematuria. He denies fever, chills, chest discomfort, nausea, vomiting, abdominal pain, however notes some diarrhea. He has no known family history of kidney disease. He denies use of any NSAIDs at home. Chest x-ray showed findings that are indicative of CHF exacerbation/fluid overload state Renal ultrasound showed no evidence of hydronephrosis Echocardiogram on 07/20/2024 showed EF 45-50% Creatinine on arrival 1.59, this morning 1.99. BUN on arrival 25, currently 45. Past Medical History Past Medical History: Atrial Fibrillation, Diabetes Mellitus, Hyperlipidemia, Hypertension, Pneumonia, Supraventricular Tachycardia (SVT) Additional Past Medical History / Comment(s): a fib, causes shortness of breath, can feel irregular heartbeat History of Any Multi-Drug Resistant Organisms: None Reported Past Surgical History: Cholecystectomy, Heart Catheterization Additional Past Surgical History / Comment(s): Colonoscopy Past Anesthesia/Blood Transfusion Reactions: No Reported Reaction Past Psychological History: No Psychological Hx Reported Smoking Status: Former smoker Past Alcohol Use History: Occasional Additional Past Alcohol Use History / Comment(s): Started smoking as a teen about a ppd. Past Drug Use History: Marijuana - Past Family History Father Family Medical History: No Reported History Mother Family Medical History: Coronary Artery Disease (CAD) Medications and Allergies Home Medications Medication Instructions Recorded Confirmed Type Apixaban [Eliquis] 5 mg PO BID 04/12/22 07/20/24 History Furosemide [Lasix] 40 mg PO DAILY 04/12/22 07/20/24 History Amiodarone [Cordarone] 200 mg PO DAILY 12/31/22 07/20/24 History Metoprolol Succinate (ER) [Toprol 25 mg PO DAILY 07/20/24 07/20/24 History Xl] lisinopriL [Zestril] 20 mg PO BID 07/20/24 07/20/24 History Allergies Allergy/AdvReac Type Severity Reaction Status Date / Time No Known Allergies Allergy Verified 07/20/24 07:12 Physical Exam Vitals: Vital Signs Temp Pulse Pulse Resp BP Pulse Ox FiO2 07/22/24 11:19 70 07/22/24 11:12 80 07/22/24 11:09 66 07/22/24 08:01 70 07/22/24 08:00 99.7 F H 63 30 H 110/54 94 L 80 07/22/24 07:51 80 07/22/24 07:47 68 07/22/24 04:35 101.5 F H 70 32 H 133/67 95 80 07/22/24 03:29 80 07/22/24 00:21 60 07/21/24 22:56 100.5 F H 75 26 H 163/71 94 L 80 07/21/24 20:48 100.2 F H 64 24 127/54 99 80 07/21/24 20:40 78 80 07/21/24 20:26 74 07/21/24 16:00 100.4 F H 73 19 116/69 93 L 07/21/24 15:43 78 07/21/24 15:30 68 07/21/24 12:10 60 07/21/24 12:00 99.1 F 71 23 119/55 90 L 07/21/24 11:44 80 07/21/24 11:35 78 Intake and Output 07/21/24 07/22/24 07/22/24 22:59 06:59 14:59 Output Total 750 Balance -750 Output: Urine 750 Other: Voiding Method Bedside Commode Bedside Commode Bedside Commode # Voids 2 Weight 89 kg Patient is awake, comfortable, no acute distress. 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 Cr peaked at 2.1 this admission - 1.99 today. #chronic kidney disease stage 3A, baseline creatinine 1.6-1.7. #Hyponatremia secondary to hypervolemia and acute respiratory infection causing SIADH. #Sepsis secondary to influenza type a pneumonia, currently maintained on Tamiflu #Acute hypoxic respiratory failure secondary to above #HFrEF w/EF 45 to 50% #Type II NSTEMI Plan: -Received 40 mg IV Lasix yesterday (07/21/2024) and this morning; reassess in a.m., continue IV Lasix as needed following reassessment -Renal ultrasound showed no evidence of hydronephrosis -UA showed 1+ protein, moderate blood, no rbc's. -Repeat chest x-ray in the a.m. -Recheck labs in a.m. -Maintain fluid restriction 1500 cc -Bladder scan, if retaining greater than 300 cc insert Ortiz catheter -Avoid nephrotoxic agents -Continue to hold lisinopril Thank you for the consultation. I will continue to follow the patient with you during this hospital stay. I have seen and examined the patient with resident and agree with A&P as written.
--- NOTE | 2024-07-22 11:44 | P.PN ---
Subjective Progress Note Date: 07/22/24 Patient is a 64-year-old male with a PMH of A-fib on Eliquis, COPD not on home oxygen, type II DM, hypertension, hyperlipidemia, CKD stage IIIa who presents to the emergency room with complaints of shortness of breath and cough. Patient reports that over the past 1 week he has been experiencing gradually worsening persistent cough. Reports that the cough is nonproductive. He also reports exertional dyspnea. Denies experiencing fever or chills. Also denies chest discomfort, nausea, vomiting, abdominal pain, diarrhea. Chest x-ray in the emergency room revealed cardiomegaly along with findings of multifocal pneumonia. EKG revealed sinus rhythm at 93 bpm with intraventricular conduction delay as reviewed by me. Laboratory evaluation did reveal influenza type a positive, troponin 0.102, proBNP 12,900, lactic acid 3.3, glucose 228, BUN 25, creatinine 1.59, and WBC count 12.7 with neutrophilic predominance. Patient was reportedly severely hypoxic and in respiratory distress upon EMS arrival at the scene and was started on BiPAP. 07/21/2024 patient seen and examined at bedside. No acute events overnight. No new complaints. WBC 7.2, hemoglobin 14.1, platelet count 1 68,000, PT 12.1, INR 1.1, PTT 103.7, sodium 133, potassium 4.2, chloride 96, bicarb 27, BUN 44, creatinine 2.12, glucose 97. Troponin increased to 0.55 and has flattened. Chest x-ray done showed findings favor CHF exacerbation/fluid overload state. Areas of underlying acute infiltrate cannot be excluded. No significant change from most recent x-ray. 07/22/24 patient seen and examined at bedside. no new complaints. Currently comfortable on BiPAP. Labs today showed WBC 8.7, hemoglobin 12.8, MCV 93.7, platelet count 1 39,000, sodium 128, potassium 3.6, chloride 94, BUN 44, creatinine 1.99, calcium 7.8, glucose 113. ABG showed pH of 7.42, pCO2 38, pO2 74. Urinalysis showed +1 protein, moderate ketones, rare bacteria, 9 hyaline casts and rare mucus, negative nitrites, negative leukocyte esterase. Renal u ltrasound done on 07/21 showed negative for hydronephrosis, stones, bladder anechoic Review of systems: Pertinent positives and negatives as discussed in HPI, a complete review of systems was performed and all other systems are negative. Pertinent imaging and labs reviewed. Physical examination: Vital signs reviewed General: non toxic, no distress, appears at stated age, BiPAP Derm: no unusual rashes/lesions, warm Head: atraumatic, normocephalic, symmetric Eyes: EOMI, anicteric sclera, pupils equal round reactive to light ENT: Nose and ears atraumatic Neck: No cervical lymphadenopathy, trachea midline, supple Mouth: no lip lesion, mucus membranes moist Cardiovascular: S1S2 reg, no murmur Lungs: Bibasilar crackles, no rhonchi, no rales, no accessory muscle use Abdominal: soft, nontender to palpation, no guarding Ext: muscle strength 5 out of 5 in all 4 extremities grossly, no gross muscle atrophy, no contractures, positive dorsalis pedis pulse bilateral, no edema Neuro: CN II-XI grossly intact, no gross focal neuro deficits Psych: Alert and oriented x3, appropriate affect and mood Assessment/Plan: 64-year-old male with history of COPD, A-fib on Eliquis and CKD stage III here for further management of cardiorenal syndrome and sepsis secondary to pneumonia now BiPAP dependent. #. Cardiorenal syndrome #. Heart failure with reduced ejection fraction EF of 45 to 50%, not on GDMT #. Hyponatremia secondary to above #. Acute kidney injury on CKD -Echocardiogram in 07/20/2024 showed ejection fracture 45-50% with moderately increased septal wall thickness, biatrial dilatation, moderate tricuspid valve r egurgitation -Lasix 20 mg IV every 8 discontinued due by cardiology -Lasix 40 mg IV given once today. Will reevaluate patient volume status -Strict CHOCO's -Daily weights -Fluid restriction -Monitor BMP for electrolytes and renal function -Cardiology consulted -Metoprolol 25 mg daily. Initiate GDMT on discharge #. Sepsis secondary to influenza pneumonia, unable to rule out bacterial p neumonia #. Acute hypoxic respiratory failure, secondary to above -Procalcitonin elevated at 2.38 -Supportive oxygen as need. Currently on BiPAP 07/10 80% -Received one-time dose Zithromax 500 mg p.o. and Rocephin 2 g IVPB in the ED -Continue with Rocephin 2 g IVPB and Zithromax 500 mg IVPB -Continue Tamiflu 30 mg p.o. every 12 hours -Hydrocortisone 50mg IV every 6 hours -Blood culture negative at this time -Urine culture pending -Legionella urine antigen -Monitor CBC #. NSTEMI, type II -EKG revealed sinus rhythm at 93 bpm with intraventricular conduction delay on admission -Patient has no chest pain as of now -Troponins flattened at 0.5 -IV heparin for 48 hours. Now discontinued -Cardiology initiated atorvastatin 40 mg daily #. Lactic acidosis, resovled Chronic conditions: #. A-fib #. COPD #. Type II DM #. Hypertension #. Hyperlipidemia -Lisinopril held due to DARI -Continue Eliquis 5 mg twice daily, amiodarone 200 mg p.o. daily, metoprolol 25 mg daily F: Restrict fluids due to liters today E: Monitor electrolytes particularly sodium and potassium N: Heart healthy diet A: Can ambulate with assistance DVT prophylaxis: Eliquis 5 mg p.o. daily Gabrielle Song MD PGY-1/Refinery Operator Helper [employer] Dictation was produced using [employer] dictation software. please excuse any grammatical, word or spelling errors. I have seen and evaluated the patient today. Discussed with the resident and agree with the residents finding and plan as documented in the resident's note. Changes highlighted in blue font. Objective - Vital Signs Vital signs: Vital Signs Temp 101.5 F H 07/22/24 04:35 Pulse 70 07/22/24 04:35 Resp 32 H 07/22/24 04:35 BP 133/67 07/22/24 04:35 Pulse Ox 95 07/22/24 04:35 FiO2 80 07/22/24 04:35 Intake & Output 07/21/24 07/21/24 07/22/24 06:59 18:59 06:59 Intake Total 250 142 Output Total 750 Balance 250 142 -750 Weight 87.4 kg 89 kg Intake: Intake, IV Titration 250 24 Amount Heparin Sod,Pork in 0.45% 250 24 NaCl 25,000 unit In 0.45 % NaCl 1 250ml.bag @ 10. 498 UNITS/KG/HR 10 mls/hr IV .Q24H MALVIN Rx#: [id number] Oral 118 Output: Urine 750 Other: Voiding Method Bedside Commode Bedside Commode Bedside Commode # Voids 0 2 - Labs CBC & Chem 7: 07/22/24 06:20 07/22/24 06:20 Labs: Abnormal Lab Results - Last 24 Hours (Table) 07/21/24 07/21/24 07/21/24 Range/Units 06:55 06:55 06:55 MCHC 30.9 L (31.0-37.0) g/dL APTT 103.7 H* (22.0-30.0) sec Sodium 133 L (137-145) mmol/L Chloride 96 L (98-107) mmol/L BUN 44 H (9-20) mg/dL Creatinine 2.12 H (0.66-1.25) mg/dL Urine Protein (Negative) Urine Blood (Negative) Urine Bacteria (None) /hpf Hyaline Casts (0-2) /lpf Urine Mucus (None) /hpf 07/21/24 Range/Units 22:21 MCHC (31.0-37.0) g/dL APTT (22.0-30.0) sec Sodium (137-145) mmol/L Chloride (98-107) mmol/L BUN (9-20) mg/dL Creatinine (0.66-1.25) mg/dL Urine Protein 1+ H (Negative) Urine Blood Moderate H (Negative) Urine Bacteria Rare H (None) /hpf Hyaline Casts 9 H (0-2) /lpf Urine Mucus Rare H (None) /hpf Microbiology - Last 24 Hours (Table) 07/20/24 00:46 Blood Culture - Preliminary Blood
--- NOTE | 2024-07-22 14:57 | P.PN ---
Subjective Progress Note Date: 07/22/24 Reason for Consult (text): NSTEMI History of present illness: This is a 64-year-old male patient of Dr. Toledo with past medical history of chronic kidney disease stage III, COPD tobacco use, alcohol abuse, hypertension, diabetes mellitus type 2, persistent atrial fibrillation, systolic heart failure, recent GI bleed, family history of premature coronary artery disease. We have been asked to evaluate the patient for NSTEMI. Patient states he had a cough for 10 days that was dry with increasing shortness of breath but gradually worsening. He does not have home oxygen therapy. He denies any chest pain or chest pressure. Prior to this episode, patient was feeling well with no shortness of breath. He is now not eating or drinking very much with decreased appetite. At home, he states he was taking all of his prescribed medications. He is urinating okay. He presented with a blood pressure of 200/113. He does not check his blood pressure at home. Temperature max 102.3. Blood pressure now 161/88, heart rate 75, pulse ox 96% on BiPAP. He denies smoking and denies alcohol use. Patient has been started on heparin drip. Patient is seen today in the emergency center waiting for a bed on the cardiac stepdown unit. -EKG: Sinus rhythm with IVCD -Chest x-ray: Cardiomegaly. Areas of airspace disease most notably at the left mid and lower lung suggestive of multifocal pneumonia. -Laboratory studies: WBC initially 12.7 and repeat 10.5, hemoglobin 14.3. Sodium 135, potassium 4.3, BUN 29 creatinine 1.86. Lactic acid 3.2 followed by 1.9. Troponin 0.102, 0.327. Influenza A detected. -Home cardiac medications: Amiodarone 200 mg daily, Eliquis 5 mg twice daily, Lasix 40 mg daily, lisinopril 20 mg twice daily, metoprolol succinate 25 mg daily. -ABHIJIT and cardioversion performed on 01/03/2023 revealed aortic valve is tricuspid, functioning normally with trace AI. Mitral valve appears to be normal with mild regurgitation. Tricuspid valve appears to be normal with moderate to severe tricuspid regurgitation. There is a PFO. Left atrial appendage is free of clot. EF 35%. -ABHIJIT and cardioversion performed 04/16/2022. Dobutamine stress echocardiogram performed in the office on 12/27/2020 revealed nondiagnostic EKG portion secondary to baseline EKG abnormalities. Normal stress echo portion without inducible ischemia. Normal left ventricular ejection fraction of 60%. 07/21 Patient seen and examined on the cardiac stepdown unit. Patient states he still has a significant amount of coughing. No lower extremity edema. He states he is having some chills as well. Patient states he is urinating a lot but not eating very much with decreased appetite. He has been maintained on IV Lasix at 20 mg every 8 hours as well as heparin drip. No complaints of chest pain. Blood pressure 119/55, heart rate 71, pulse ox 90% on BiPAP. Repeat blood work reveals WBC 7.2, hemoglobin 14.1. Sodium 133, BUN 44 and creatinine 2.12. Echocardiogram reveals EF of 45 to 50%, moderately increased septal wall thickness, moderate biatrial dilatation, moderate tricuspid regurgitation. 07/22 Patient seen and examined. He is currently on BiPAP with pulse ox of 95% on FiO2 of 80, blood pressure 117/60, respiratory rate 35, heart rate 70. Temperature max 101.5. Repeat blood work reveals hemoglobin 12.8. Sodium 128, potassium 3.6, BUN 45 creatinine 1.99. Physical examination: Gen: This is a 64-year-old male in no acute respiratory distress. VS: reviewed HEENT: Head is atraumatic, normocephalic. Pupils equal, round. Sclerae is a nicteric. NECK: Supple. No JVD. LUNGS: Scattered rhonchi. Accessory muscle usage. HEART: Irregular rate and rhythm. No murmur. ABDOMEN: Soft No tenderness. EXTREMITIES: No pedal edema. No calf tenderness. NEUROLOGICAL: Patient is awake, alert and oriented x3. Assessment: Shortness of breath with acute hypoxic respiratory failure secondary to influenza, pneumonia, and component of heart failure NSTEMI possibly secondary to sepsis, influenza and pneumonia Influenza A Pneumonia Mild acute on chronic systolic heart failure Acute kidney injury Lactic acidosis Cardiomyopathy with previous EF of 15 to 20%, possibly tachycardia induced Hypertension Hyperlipidemia Persistent atrial fibrillation status post previous cardioversion x 2, currently in sinus rhythm Diabetes mellitus type 2 Hyponatremia Plan: Continue patient's home cardiac medications: Eliquis 5 mg twice daily, aspirin 81 mg daily, atorvastatin 40 mg at bedtime, metoprolol succinate 25 mg daily Discontinue IV Lasix Continue oxygen support Continue Tamiflu Further recommendations to follow based upon clinical course Nurse practitioner note has been reviewed, I agree with documented findings and plan of care. Patient was seen and examined. Objective - Vital Signs Vital signs: Vital Signs Temp 99.7 F H 07/22/24 08:00 Pulse 62 07/22/24 12:00 Resp 35 H 07/22/24 12:00 BP 117/60 07/22/24 12:00 Pulse Ox 95 07/22/24 12:00 FiO2 80 07/22/24 12:00 Intake & Output 07/21/24 07/22/24 07/22/24 18:59 06:59 18:59 Intake Total 142 Output Total 750 Balance 142 -750 Weight 89 kg Intake: Intake, IV Titration 24 Amount Heparin Sod,Pork in 0.45% 24 NaCl 25,000 unit In 0.45 % NaCl 1 250ml.bag @ 10. 498 UNITS/KG/HR 10 mls/hr IV .Q24H MALVIN Rx#: [id number] Oral 118 Output: Urine 750 Other: Voiding Method Bedside Commode Bedside Commode Bedside Commode # Voids 2 - Labs CBC & Chem 7: 07/22/24 06:20 07/22/24 06:20 Labs: Abnormal Lab Results - Last 24 Hours (Table) 07/21/24 07/22/24 07/22/24 Range/Units 22:21 06:20 06:20 RBC 4.23 L (4.30-5.90) m/uL Hgb 12.8 L (13.0-17.5) gm/dL Plt Count 139 L (150-450) k/uL Lymphocytes # 0.7 L (1.0-4.8) k/uL ABG pO2 (83-108) mmHg ABG Total CO2 (19-24) mmol/L Hemoglobin (13.0-17.5) gm/dL Sodium 128 L (137-145) mmol/L Chloride 94 L (98-107) mmol/L BUN 45 H (9-20) mg/dL Creatinine 1.99 H (0.66-1.25) mg/dL Glucose 113 H (74-99) mg/dL Calcium 7.8 L (8.4-10.2) mg/dL Urine Protein 1+ H (Negative) Urine Blood Moderate H (Negative) Urine Bacteria Rare H (None) /hpf Hyaline Casts 9 H (0-2) /lpf Urine Mucus Rare H (None) /hpf 07/22/24 Range/Units 08:15 RBC (4.30-5.90) m/uL Hgb (13.0-17.5) gm/dL Plt Count (150-450) k/uL Lymphocytes # (1.0-4.8) k/uL ABG pO2 74 L (83-108) mmHg ABG Total CO2 26 H (19-24) mmol/L Hemoglobin 12.9 L (13.0-17.5) gm/dL Sodium (137-145) mmol/L Chloride (98-107) mmol/L BUN (9-20) mg/dL Creatinine (0.66-1.25) mg/dL Glucose (74-99) mg/dL Calcium (8.4-10.2) mg/dL Urine Protein (Negative) Urine Blood (Negative) Urine Bacteria (None) /hpf Hyaline Casts (0-2) /lpf Urine Mucus (None) /hpf Microbiology - Last 24 Hours (Table) 07/20/24 00:46 Blood Culture - Preliminary Blood
[2024-07-22] MEDS: BENZONATATE 100 MG CAP PO PRN (15:36)
--- NOTE | 2024-07-22 15:36 | P.PN ---
Subjective Progress Note Date: 07/22/24 This is a 64-year-old male patient with chronic and ongoing tobacco dependence, atrial fibrillation, diabetes mellitus, hypertension, hyperlipidemia who has a 1 week history of increasing shortness of breath, cough congestion fever and chills. He came into the emergency room last evening with severe shortness of breath requiring BiPAP support which was 14/5 and 50% FiO2. Chest x-ray revealed cardiomegaly and airspace disease most notably in the left mid lower lung zone suggestive of multifocal pneumonia and possible fluid volume overload. White count 10.5. Hemoglobin 14.3. Platelets 156. Sodium 135. Potassium 4.3. Bicarb 27. BUN 29. Creatinine 1.86. Glucose 174. Troponins 0.327, 0.550, 0.5-2. He is initiated on a heparin drip. proBNP was 13,000. Procalcitonin 2.38. He did test positive for influenza A. Initiated on Tamiflu. Initiated on ceftriaxone. He is seen today in consultation in the emergency department. He is currently sitting up on the stretcher. Awake and alert. He is on 6 L high flow nasal cannula. He is breathing a bit easier today compared to yesterday. Still with a loose nonproductive cough. He did have a Tmax of 102.3. Current temperature 99.1. He is hemodynamically stable. The patient is seen today July 21, 2024 in follow-up on the regular medical floor. He is awake and alert in no acute distress. Doing slightly better today compared to yesterday. He is still requiring 10 L high flow nasal cannula. Chest x-ray continues to show evidence of fluid volume overload/CHF. Echocardiogram reveals mildly impaired left ventricular systolic function with ejection fraction of 45 to 50%. Moderately reduced global LV function. Blood culture is pending. White count 7.2. Hemoglobin 14.1. Platelets 168. Sodium 133. Potassium 4.2. Bicarb 27. BUN 44. Creatinine 2.12. Stool for occult blood was negative. Since. Anticoagulated with Eliquis. Antibiotics in the form of ceftriaxone and azithromycin. He is continued on Tamiflu. Lasix discontinued per cardiology. The patient is seen today July 22, 2024 in follow-up on the regular medical floor. He is currently on BiPAP 14/5 and 80% FiO2. He was trialed on 12 L high flow earlier this morning with O2 saturations in the 70s and 80s. Arterial blood gases on the 80% FiO2 revealed a PaO2 of 74, pCO2 of 38 and a pH of 7.42. A chest x-ray revealed similar findings of persistent cardiomegaly with bilateral multifocal acute infiltrates and/or edema. He received Lasix 40 mg IVP x 1. Blood culture reveals no growth to date. White count 8.7. Hemoglobin 12.8. Platelets 139. Sodium 128. Potassium 3.6. Bicarb 29. BUN 45. Creatinine 1.99. He is continued on DuoNeb inhalations. Continued on Tamiflu. Initiated on Solu-Cortef. Remains on antibiotics in the form of ceftriaxone and azithromycin. Anticoagulated with Eliquis. Currently on a 1500 mL fluid restriction. Nephrology is following. SAGAR inhibitor remains on hold. Objective - Vital Signs Vital signs: Vital Signs Temp 99.7 F H 07/22/24 08:00 Pulse 68 07/22/24 15:20 Resp 35 H 07/22/24 12:00 BP 117/60 07/22/24 12:00 Pulse Ox 95 07/22/24 12:00 FiO2 70 07/22/24 15:20 Intake & Output 07/21/24 07/22/24 07/22/24 18:59 06:59 18:59 Intake Total 142 Output Total 750 100 Balance 142 -750 -100 Weight 89 kg Intake: Intake, IV Titration 24 Amount Heparin Sod,Pork in 0.45% 24 NaCl 25,000 unit In 0.45 % NaCl 1 250ml.bag @ 10. 498 UNITS/KG/HR 10 mls/hr IV .Q24H [facility] Rx#: [id number] Oral 118 Output: Urine 750 Post Void Residual 100 Other: Voiding Method Bedside Commode Bedside Commode Bedside Commode # Voids 2 - Exam GENERAL EXAM: Alert, 64-year-old male, on BiPAP 14/5 and 80% FiO2 a, fairly comfortable in no apparent distress. HEAD: Normocephalic. EYES: Normal reaction of pupils, equal size. NOSE: Clear with pink turbinates. THROAT: No erythema or exudates. NECK: No masses, no JVD. CHEST: No chest wall deformity. LUNGS: Equal air entry with crackles in the bilateral bases, few scattered rhonchi, diminished. CVS: S1 and S2 normal with no audible murmur, regular rhythm. ABDOMEN: No hepatosplenomegaly, normal bowel sounds, no guarding or rigidity. SPINE: No scoliosis or deformity SKIN: No rashes CENTRAL NERVOUS SYSTEM: No focal deficits, tone is normal in all 4 extremities. EXTREMITIES: There is 1+ peripheral edema. No clubbing, no cyanosis. P eripheral pulses are intact. - Labs CBC & Chem 7: 07/22/24 06:20 07/22/24 06:20 Labs: Abnormal Lab Results - Last 24 Hours (Table) 07/21/24 07/22/24 07/22/24 Range/Units 22:21 06:20 06:20 RBC 4.23 L (4.30-5.90) m/uL Hgb 12.8 L (13.0-17.5) gm/dL Plt Count 139 L (150-450) k/uL Lymphocytes # 0.7 L (1.0-4.8) k/uL ABG pO2 (83-108) mmHg ABG Total CO2 (19-24) mmol/L Hemoglobin (13.0-17.5) gm/dL Sodium 128 L (137-145) mmol/L Chloride 94 L (98-107) mmol/L BUN 45 H (9-20) mg/dL Creatinine 1.99 H (0.66-1.25) mg/dL Glucose 113 H (74-99) mg/dL Calcium 7.8 L (8.4-10.2) mg/dL Urine Protein 1+ H (Negative) Urine Blood Moderate H (Negative) Urine Bacteria Rare H (None) /hpf Hyaline Casts 9 H (0-2) /lpf Urine Mucus Rare H (None) /hpf 07/22/24 Range/Units 08:15 RBC (4.30-5.90) m/uL Hgb (13.0-17.5) gm/dL Plt Count (150-450) k/uL Lymphocytes # (1.0-4.8) k/uL ABG pO2 74 L (83-108) mmHg ABG Total CO2 26 H (19-24) mmol/L Hemoglobin 12.9 L (13.0-17.5) gm/dL Sodium (137-145) mmol/L Chloride (98-107) mmol/L BUN (9-20) mg/dL Creatinine (0.66-1.25) mg/dL Glucose (74-99) mg/dL Calcium (8.4-10.2) mg/dL Urine Protein (Negative) Urine Blood (Negative) Urine Bacteria (None) /hpf Hyaline Casts (0-2) /lpf Urine Mucus (None) /hpf Microbiology - Last 24 Hours (Table) 07/20/24 00:46 Blood Culture - Preliminary Blood Assessment and Plan Assessment: Acute hypoxemic respiratory failure secondary to an acute exacerbation of chroni c obstructive pulmonary disease complicated by influenza A and possible underlying pneumonia. Procalcitonin 2.38. Acute influenza A infection Acute exacerbation of chronic systolic congestive heart failure with an ejection fraction now 45-50% Troponin leak possible non-ST segment elevation myocardial infarction secondary to above Acute kidney injury History of atrial fibrillation with previous cardioversion maintained on amiodarone and Eliquis Chronic tobacco dependence with suspected underlying COPD Hypertension Hyperlipidemia Diabetes mellitus, type II Plan: The patient was seen and evaluated Chest x-ray, labs and medications reviewed Increasing FiO2 requirements this a.m. Currently on BiPAP Decreased the FiO2 to 70% Transition to high flow nasal cannula if tolerated Lasix 40 mg IVP x 1 Arterial blood gases reviewed Continue to titrate down the FiO2 as tolerated Continue DuoNeb inhalations, Symbicort Initiated on Solu-Cortef Continue ceftriaxone and azithromycin Continue Tamiflu Anticoagulated with Eliquis We will continue to follow I have personally seen and examined the patient, performed the documentation and the assessment and plan as written. Number of minutes spent on the visit: 10 Dictation was produced using [employer] dictation software. Please excuse any grammatical, word or spelling errors.
[2024-07-23] MEDS: LORazepam 2 MG/ML INJ IV STA (00:45)
[2024-07-23] MEDS ORDERED: DEXTROSE 50% SYRINGE 50 ML IVP PRN ×2 (06:56)
--- NOTE | 2024-07-23 07:02 | XR ---
EXAMINATION TYPE: XR chest 1V portable DATE OF EXAM: 07/23/2024 CLINICAL HISTORY: Difficulty breathing and CHF progress study. TECHNIQUE: Single AP portable upright view of the chest is obtained. COMPARISON: Chest x-ray from one day earlier and 2 days earlier. FINDINGS: Persistent cardiomegaly with continued worsening bilateral diffuse increased opacities. Os seous structures are intact. IMPRESSION: Continued worsening bilateral diffuse acute infiltrates and/or edema. Correlate clinicall y. Developing ARDS is not excluded. [facility], , 07/23/2024 6:59 AM
[2024-07-23 07:23] LABS: Basophils % (A) 0 %; Eosinophils % (A) 0 %; HCT 41.4 % (39.0-53.0); HGB 13.3 gm/dL (13.0-17.5); Lymphocytes # (A) 0.7 k/uL (1.0-4.8); Lymphocytes % (A) 9 %; MCH 30.3 pg (25.0-35.0); MCHC 32.1 g/dL (31.0-37.0); MCV 94.5 fL (80.0-100.0); Monocytes # (A) 0.5 k/uL (0-1.0); Monocytes % (A) 6 %; Neutrophils # (A) 6.3 k/uL (1.3-7.7); Neutrophils % (A) 83 %; Platelet Count 167 k/uL (150-450); RBC 4.38 m/uL (4.30-5.90); RDW 12.7 % (11.5-15.5); WBC 7.6 k/uL (3.8-10.6)
[2024-07-23 07:43] LABS: African American GFR (CKD) 54 (>60 ml/min/1.73 sqM); Anion Gap 8 mmol/L; Blood Urea Nitrogen 47 mg/dL (9-20); Calcium 8.5 mg/dL (8.4-10.2); Carbon Dioxide 28 mmol/L (22-30); Chloride 97 mmol/L (98-107); Glucose 132 mg/dL (74-99); Non-African American GFR(CKD) 46 (>60 ml/min/1.73 sqM); Potassium 3.9 mmol/L (3.5-5.1); Sodium 133 mmol/L (137-145)
[2024-07-23] MEDS: INSULIN LISPRO (HumaLOG) 100 UNIT/ML 10 mL VL SQ SCH (10:36)
[2024-07-23] MEDS: FUROSEMIDE 10 MG/ML 4 ML VIAL IV STA (10:36)
[2024-07-23 11:16] LABS: Glucose,Whole Blood 219 mg/dL (70-110)
--- NOTE | 2024-07-23 12:18 | P.PN ---
Subjective Progress Note Date: 07/23/24 Patient seen for follow-up for DARI and hyponatremia. Patient has been transition to high flow nasal cannula however showed signs of desaturation into the low 80% and now on BiPAP. Bladder scan was completed yesterday which showed <300 cc residual, he endorses some urine production Objective - Vital Signs Vital signs: Vital Signs Temp 97.8 F 07/23/24 08:00 Pulse 58 L 07/23/24 08:12 Resp 18 07/23/24 08:12 BP 124/61 07/23/24 08:00 Pulse Ox 98 07/23/24 08:05 FiO2 60 07/23/24 08:05 Intake & Output 07/22/24 07/23/24 07/23/24 18:59 06:59 18:59 Intake Total 180 Output Total 100 525 Balance -100 -525 180 Weight 87.3 kg Intake: Oral 180 Output: Urine 525 Post Void Residual 100 Other: Voiding Method Bedside Commode Bedside Commode Urinal # Voids 1 # Bowel Movements 1 - Exam Patient is awake, comfortable, no acute distress. Heart: S1 and S2 heard Lungs: Bilateral breath sounds are heard Abdomen: Soft and nontender Lower extremities: No edema CONTENT COORDINATOR: grossly intact - Labs CBC & Chem 7: 07/23/24 06:55 07/23/24 06:55 Labs: Abnormal Lab Results - Last 24 Hours (Table) 07/23/24 07/23/24 Range/Units 06:55 06:55 Lymphocytes # 0.7 L (1.0-4.8) k/uL Sodium 133 L (137-145) mmol/L Chloride 97 L (98-107) mmol/L BUN 47 H (9-20) mg/dL Creatinine 1.54 H (0.66-1.25) mg/dL Glucose 132 H (74-99) mg/dL Microbiology - Last 24 Hours (Table) 07/20/24 00:46 Blood Culture - Preliminary Blood Assessment and Plan Assessment: #ATN secondary to Cardiorenal syndrome; permissive DARI on stage IIIa chronic kidney disease, baseline creatinine 1.6-1.7 currently 1.54, improved #Hyponatremia secondary to hypervolemia and acute respiratory infection, improving 133 today #Sepsis secondary to influenza type a pneumonia, currently maintained on Tamiflu #Acute hypoxic respiratory failure secondary to above #HFrEF w/EF 45 to 50% #Type II NSTEMI Plan: -Received 40 mg IV Lasix this morning; reassess in a.m., continue IV Lasix as needed following reassessment -Creatinine improved to 1.54 this morning, BUN 47, sodium 133 -Chest x-ray showed continued worsening bilateral diffuse acute infiltrates and/or edema -Recheck labs in a.m. -Maintain fluid restriction 1500 cc -Bladder scan showed <300 cc, Ortiz was not inserted -Avoid nephrotoxic agents -Continue to hold lisinopril I have seen and examined the patient with resident and agree with A&P as written.
--- NOTE | 2024-07-23 14:20 | P.PN ---
Subjective Progress Note Date: 07/23/24 Patient is a 64-year-old male with a PMH of A-fib on Eliquis, COPD not on home oxygen, type II DM, hypertension, hyperlipidemia, CKD stage IIIa who presents to the emergency room with complaints of shortness of breath and cough. Patient reports that over the past 1 week he has been experiencing gradually worsening persistent cough. Reports that the cough is nonproductive. He also reports exertional dyspnea. Denies experiencing fever or chills. Also denies chest discomfort, nausea, vomiting, abdominal pain, diarrhea. Chest x-ray in the emergency room revealed cardiomegaly along with findings of multifocal pneumonia. EKG revealed sinus rhythm at 93 bpm with intraventricular conduction delay as reviewed by me. Laboratory evaluation did reveal influenza type a positive, troponin 0.102, proBNP 12,900, lactic acid 3.3, glucose 228, BUN 25, creatinine 1.59, and WBC count 12.7 with neutrophilic predominance. Patient was reportedly severely hypoxic and in respiratory distress upon EMS arrival at the scene and was started on BiPAP. 07/21/2024 patient seen and examined at bedside. No acute events overnight. No new complaints. WBC 7.2, hemoglobin 14.1, platelet count 1 68,000, PT 12.1, INR 1.1, PTT 103.7, sodium 133, potassium 4.2, chloride 96, bicarb 27, BUN 44, creatinine 2.12, glucose 97. Troponin increased to 0.55 and has flattened. Chest x-ray done showed findings favor CHF exacerbation/fluid overload state. Areas of underlying acute infiltrate cannot be excluded. No significant change from most recent x-ray. 07/22/24 patient seen and examined at bedside. no new complaints. Currently comfortable on BiPAP. Labs today showed WBC 8.7, hemoglobin 12.8, MCV 93.7, platelet count 1 39,000, sodium 128, potassium 3.6, chloride 94, BUN 44, creatinine 1.99, calcium 7.8, glucose 113. ABG showed pH of 7.42, pCO2 38, pO2 74. Urinalysis showed +1 protein, moderate ketones, rare bacteria, 9 hyaline casts and rare mucus, negative nitrites, negative leukocyte esterase. Renal u ltrasound done on 07/21 showed negative for hydronephrosis, stones, bladder anechoic patient seen and examined at bedside. Given Ativan IV for anxiety overnight. No acute events. Still required BiPAP overnight. WBC 7.6, hemoglobin 13.9, platelet count 1 67,000, sodium 133, chloride 97, BUN 47, creatinine 1.54, glucose 132, calcium 8.5. Legionella Ag negative. Chest x-ray independently interpreted today showed continued worsening of bilateral diffuse acute infiltrates and/or edema, developing ARDS not included. Review of systems: Pertinent positives and negatives as discussed in HPI, a complete review of systems was performed and all other systems are negative. Pertinent imaging and labs reviewed. Physical examination: Vital signs reviewed General: non toxic, no distress, appears at stated age, BiPAP Derm: no unusual rashes/lesions, warm Head: atraumatic, normocephalic, symmetric Eyes: EOMI, anicteric sclera, pupils equal round reactive to light ENT: Nose and ears atraumatic Neck: No cervical lymphadenopathy, trachea midline, supple Mouth: no lip lesion, mucus membranes moist Cardiovascular: S1S2 reg, no murmur Lungs: Bibasilar crackles, no rhonchi, no rales, no accessory muscle use Abdominal: soft, nontender to palpation, no guarding Ext: muscle strength 5 out of 5 in all 4 extremities grossly, no gross muscle atrophy, no contractures, positive dorsalis pedis pulse bilateral, no edema Neuro: CN II-XI grossly intact, no gross focal neuro deficits Psych: Alert and oriented x3, appropriate affect and mood Assessment/Plan: 64-year-old male with history of COPD, A-fib on Eliquis and CKD stage III here for further management of cardiorenal syndrome and sepsis secondary to pneumonia now BiPAP dependent. #. Cardiorenal syndrome #. Heart failure with reduced ejection fraction EF of 45 to 50%, not on GDMT #. Hyponatremia secondary to above #. Acute kidney injury on CKD, improving -Echocardiogram in 07/20/2024 showed ejection fracture 45-50% with moderately i ncreased septal wall thickness, biatrial dilatation, moderate tricuspid valve regurgitation -Lasix 20 mg IV every 8 discontinued due by cardiology -Lasix 40 mg IV given once today by pulmonology -Patient euvolemic today. Continue to monitor volume status. -Strict CHOCO's -Daily weights -Fluid restriction -Monitor BMP for electrolytes and renal function -Cardiology consulted -Metoprolol 25 mg daily. Initiate GDMT on discharge #. Sepsis secondary to influenza pneumonia, unable to rule out bacterial pneumonia #. Acute hypoxic respiratory failure, secondary to above #. Severe ARDS -P/F ratio 92 -Procalcitonin elevated at 2.38 -Legionella urine antigen neagtive -Supportive oxygen as needed -Received one-time dose Zithromax 500 mg p.o. and Rocephin 2 g IVPB in the ED -Continue with Rocephin 2 g IVPB and Zithromax 500 mg IVPB -Continue Tamiflu 30 mg p.o. every 12 hours -Hydrocortisone 50mg IV every 6 hours -Blood culture negative at this time -Monitor CBC #. NSTEMI, type II -EKG revealed sinus rhythm at 93 bpm with intraventricular conduction delay on admission -Patient has no chest pain as of now -Troponins flattened at 0.5 -IV heparin for 48 hours. Now discontinued -Cardiology initiated atorvastatin 40 mg daily #. Lactic acidosis, resovled Chronic conditions: #. A-fib #. COPD #. Type II DM #. Hypertension #. Hyperlipidemia -Lisinopril held due to DARI -Continue Eliquis 5 mg twice daily, amiodarone 200 mg p.o. daily, metoprolol 25 mg daily -Hemoglobin A1c -Not on home diabetes medications -Glucose Accu-Cheks ACHS -Initiate Insulin sliding scale ACHS -Monitor for hypoglycemia F: Restrict fluids due to 2 liters E: Monitor electrolytes particularly sodium and potassium N: Heart healthy diet A: Can ambulate with assistance DVT prophylaxis: Eliquis 5 mg p.o. daily Gabrielle Song MD PGY-1/[employer] Dictation was produced using [employer] dictation software. please excuse any grammatical, word or spelling errors. I have seen and evaluated the patient today. Discussed with the resident and agree with the residents finding and plan as documented in the resident's note. Changes highlighted in blue font. Objective - Vital Signs Vital signs: Vital Signs Temp 98.7 F 07/23/24 00:00 Pulse 56 L 07/23/24 03:58 Resp 20 07/23/24 06:29 BP 123/57 07/23/24 03:58 Pulse Ox 96 07/23/24 06:29 FiO2 60 07/23/24 04:01 Intake & Output 07/22/24 07/22/2407/23/25 06:59 18:59 06:59 Output Total 750 100 525 Balance -750 -100 -525 Weight 89 kg Output: Urine 750 525 Post Void Residual 100 Other: Voiding Method Bedside Commode Bedside Commode Bedside Commode Urinal # Voids 2 - Labs CBC & Chem 7: 07/23/24 06:55 07/23/24 06:55 Labs: Abnormal Lab Results - Last 24 Hours (Table) 07/22/24 07/22/24 07/22/24 Range/Units 06:20 06:20 08:15 RBC 4.23 L (4.30-5.90) m/uL Hgb 12.8 L (13.0-17.5) gm/dL Plt Count 139 L (150-450) k/uL Lymphocytes # 0.7 L (1.0-4.8) k/uL ABG pO2 74 L (83-108) mmHg ABG Total CO2 26 H (19-24) mmol/L Hemoglobin 12.9 L (13.0-17.5) gm/dL Sodium 128 L (137-145) mmol/L Chloride 94 L (98-107) mmol/L BUN 45 H (9-20) mg/dL Creatinine 1.99 H (0.66-1.25) mg/dL Glucose 113 H (74-99) mg/dL Calcium 7.8 L (8.4-10.2) mg/dL Microbiology - Last 24 Hours (Table) 07/20/24 00:46 Blood Culture - Preliminary Blood
--- NOTE | 2024-07-23 14:26 | P.PN ---
Subjective Progress Note Date: 07/23/24 This is a 64-year-old male patient with chronic and ongoing tobacco dependence, atrial fibrillation, diabetes mellitus, hypertension, hyperlipidemia who has a 1 week history of increasing shortness of breath, cough congestion fever and chills. He came into the emergency room last evening with severe shortness of breath requiring BiPAP support which was 14/5 and 50% FiO2. Chest x-ray revealed cardiomegaly and airspace disease most notably in the left mid lower lung zone suggestive of multifocal pneumonia and possible fluid volume overload. White count 10.5. Hemoglobin 14.3. Platelets 156. Sodium 135. Potassium 4.3. Bicarb 27. BUN 29. Creatinine 1.86. Glucose 174. Troponins 0.327, 0.550, 0.5-2. He is initiated on a heparin drip. proBNP was 13,000. Procalcitonin 2.38. He did test positive for influenza A. Initiated on Tamiflu. Initiated on ceftriaxone. He is seen today in consultation in the emergency department. He is currently sitting up on the stretcher. Awake and alert. He is on 6 L high flow nasal cannula. He is breathing a bit easier today compared to yesterday. Still with a loose nonproductive cough. He did have a Tmax of 102.3. Current temperature 99.1. He is hemodynamically stable. The patient is seen today July 21, 2024 in follow-up on the regular medical floor. He is awake and alert in no acute distress. Doing slightly better today compared to yesterday. He is still requiring 10 L high flow nasal cannula. Chest x-ray continues to show evidence of fluid volume overload/CHF. Echocardiogram reveals mildly impaired left ventricular systolic function with ejection fraction of 45 to 50%. Moderately reduced global LV function. Blood culture is pending. White count 7.2. Hemoglobin 14.1. Platelets 168. Sodium 133. Potassium 4.2. Bicarb 27. BUN 44. Creatinine 2.12. Stool for occult blood was negative. Since. Anticoagulated with Eliquis. Antibiotics in the form of ceftriaxone and azithromycin. He is continued on Tamiflu. Lasix discontinued per cardiology. The patient is seen today July 22, 2024 in follow-up on the regular medical floor. He is currently on BiPAP 14/5 and 80% FiO2. He was trialed on 12 L high flow earlier this morning with O2 saturations in the 70s and 80s. Arterial blood gases on the 80% FiO2 revealed a PaO2 of 74, pCO2 of 38 and a pH of 7.42. A chest x-ray revealed similar findings of persistent cardiomegaly with bilateral multifocal acute infiltrates and/or edema. He received Lasix 40 mg IVP x 1. Blood culture reveals no growth to date. White count 8.7. Hemoglobin 12.8. Platelets 139. Sodium 128. Potassium 3.6. Bicarb 29. BUN 45. Creatinine 1.99. He is continued on DuoNeb inhalations. Continued on Tamiflu. Initiated on Solu-Cortef. Remains on antibiotics in the form of ceftriaxone and azithromycin. Anticoagulated with Eliquis. Currently on a 1500 mL fluid restriction. Nephrology is following. SAGAR inhibitor remains on hold. The patient is seen today July 23, 2024 in follow-up on the regular medical floor. He is currently sitting up in bed. Still requiring BiPAP support currently 14/5 and 60% FiO2. He remains on DuoNeb and elations, Solu-Cortef, Tamiflu. Anticoagulated with Eliquis. Antibiotics in the form of ceftriaxone. Blood culture reveals no growth. White count 7.6. Hemoglobin 13.3. Platelets 167. Sodium 133. Potassium 3.9. Bicarb 28. BUN 47. Creatinine 1.54. Glucose 132. Chest x-ray continues to show worsening bilateral diffuse acute infiltrates and/or edema. Developing ARDS is not excluded. He is given Lasix 40 mg IVP today. Currently in a negative balance. Objective - Vital Signs Vital signs: Vital Signs Temp 97.6 F 07/23/24 11:45 Pulse 62 07/23/24 11:48 Resp 25 H 07/23/24 11:48 BP 146/69 07/23/24 11:45 Pulse Ox 100 07/23/24 11:45 FiO2 60 07/23/24 11:45 Intake & Output 07/22/24 07/23/24 07/23/24 18:59 06:59 18:59 Intake Total 360 Output Total 100 525 Balance -100 -525 360 Weight 87.3 kg Intake: Oral 360 Output: Urine 525 Post Void Residual 100 Other: Voiding Method Bedside Commode Bedside Commode Urinal # Voids 1 # Bowel Movements 1 - Exam GENERAL EXAM: Alert, 64-year-old male, sitting up in bed, on BiPAP 14/5 and 60% FiO2 a, fairly comfortable in no apparent distress. HEAD: Normocephalic. EYES: Normal reaction of pupils, equal size. NOSE: Clear with pink turbinates. THROAT: No erythema or exudates. NECK: No masses, no JVD. CHEST: No chest wall deformity. LUNGS: Equal air entry with crackles in the bilateral bases, few scattered rhonchi, diminished. CVS: S1 and S2 normal with no audible murmur, regular rhythm. ABDOMEN: No hepatosplenomegaly, normal bowel sounds, no guarding or rigidity. SPINE: No scoliosis or deformity SKIN: No rashes CENTRAL NERVOUS SYSTEM: No focal deficits, tone is normal in all 4 extremities. EXTREMITIES: There is 1+ peripheral edema. No clubbing, no cyanosis. Periph eral pulses are intact. - Labs CBC & Chem 7: 07/23/24 06:55 07/23/24 06:55 Labs: Abnormal Lab Results - Last 24 Hours (Table) 07/23/24 07/23/24 07/23/24 Range/Units 06:55 06:55 11:13 Lymphocytes # 0.7 L (1.0-4.8) k/uL Sodium 133 L (137-145) mmol/L Chloride 97 L (98-107) mmol/L BUN 47 H (9-20) mg/dL Creatinine 1.54 H (0.66-1.25) mg/dL Glucose 132 H (74-99) mg/dL POC Glucose (mg/dL) 219 H (70-110) mg/dL Microbiology - Last 24 Hours (Table) 07/20/24 00:46 Blood Culture - Preliminary Blood Assessment and Plan Assessment: Acute hypoxemic respiratory failure secondary to an acute exacerbation of chronic obstructive pulmonary disease complicated by influenza A and underlying pneumonia. Procalcitonin 2.38. Acute influenza A infection Acute exacerbation of chronic systolic congestive heart failure with an ejection fraction now 45-50% Troponin leak possible non-ST segment elevation myocardial infarction secondary to above Acute kidney injury History of atrial fibrillation with previous cardioversion maintained on amiodarone and Eliquis Chronic tobacco dependence with suspected underlying COPD Hypertension Hyperlipidemia Diabetes mellitus, type II Plan: The patient was seen and evaluated Chest x-ray, labs and medications reviewed Currently on BiPAP 14/5 and 60% FiO2 Transition to high flow nasal cannula if tolerated Continue to titrate down the FiO2 as tolerated Lasix 40 mg IVP x 1 again today Continue DuoNeb inhalations, Symbicort Continue Solu-Medrol Continue ceftriaxone, completed azithromycin Continue Tamiflu Anticoagulated with Eliquis Condition is guarded We will continue to follow I have personally seen and examined the patient, performed the documentation and the assessment and plan as written. Number of minutes spent on the visit: 10 Dictation was produced using Dragonplay dictation software. Please excuse any grammatical, word or spelling errors.
--- NOTE | 2024-07-23 14:48 | P.PN ---
Subjective Progress Note Date: 07/23/24 Reason for Consult (text): NSTEMI History of present illness: This is a 64-year-old male patient of Dr. Toledo with past medical history of chronic kidney disease stage III, COPD tobacco use, alcohol abuse, hypertension, diabetes mellitus type 2, persistent atrial fibrillation, systolic heart failure, recent GI bleed, family history of premature coronary artery disease. We have been asked to evaluate the patient for NSTEMI. Patient states he had a cough for 10 days that was dry with increasing shortness of breath but gradually worsening. He does not have home oxygen therapy. He denies any chest pain or chest pressure. Prior to this episode, patient was feeling well with no shortness of breath. He is now not eating or drinking very much with decreased appetite. At home, he states he was taking all of his prescribed medications. He is urinating okay. He presented with a blood pressure of 200/113. He does not check his blood pressure at home. Temperature max 102.3. Blood pressure now 161/88, heart rate 75, pulse ox 96% on BiPAP. He denies smoking and denies alcohol use. Patient has been started on heparin drip. Patient is seen today in the emergency center waiting for a bed on the cardiac stepdown unit. -EKG: Sinus rhythm with IVCD -Chest x-ray: Cardiomegaly. Areas of airspace disease most notably at the left mid and lower lung suggestive of multifocal pneumonia. -Laboratory studies: WBC initially 12.7 and repeat 10.5, hemoglobin 14.3. Sodium 135, potassium 4.3, BUN 29 creatinine 1.86. Lactic acid 3.2 followed by 1.9. Troponin 0.102, 0.327. Influenza A detected. -Home cardiac medications: Amiodarone 200 mg daily, Eliquis 5 mg twice daily, Lasix 40 mg daily, lisinopril 20 mg twice daily, metoprolol succinate 25 mg daily. -ABHIJIT and cardioversion performed on 01/03/2023 revealed aortic valve is tricuspid, functioning normally with trace AI. Mitral valve appears to be normal with mild regurgitation. Tricuspid valve appears to be normal with moderate to severe tricuspid regurgitation. There is a PFO. Left atrial appendage is free of clot. EF 35%. -ABHIJIT and cardioversion performed 04/16/2022. Dobutamine stress echocardiogram performed in the office on 12/27/2020 revealed nondiagnostic EKG portion secondary to baseline EKG abnormalities. Normal stress echo portion without inducible ischemia. Normal left ventricular ejection fraction of 60%. 07/21 Patient seen and examined on the cardiac stepdown unit. Patient states he still has a significant amount of coughing. No lower extremity edema. He states he is having some chills as well. Patient states he is urinating a lot but not eating very much with decreased appetite. He has been maintained on IV Lasix at 20 mg every 8 hours as well as heparin drip. No complaints of chest pain. Blood pressure 119/55, heart rate 71, pulse ox 90% on BiPAP. Repeat blood work reveals WBC 7.2, hemoglobin 14.1. Sodium 133, BUN 44 and creatinine 2.12. Echocardiogram reveals EF of 45 to 50%, moderately increased septal wall thickness, moderate biatrial dilatation, moderate tricuspid regurgitation. 07/22 Patient seen and examined. He is currently on BiPAP with pulse ox of 95% on FiO2 of 80, blood pressure 117/60, respiratory rate 35, heart rate 70. Temperature max 101.5. Repeat blood work reveals hemoglobin 12.8. Sodium 128, potassium 3.6, BUN 45 creatinine 1.99. 07/23 Patient seen and examined. Patient has been going back and forth between BiPAP and high flow nasal cannula at 15 L. Blood pressure 146/69, heart rate 50s and 60s, respiratory rate 28. Repeat lab work reveals hemoglobin 13.3, BUN 47 creatinine 1.54, sodium 133, potassium 3.9. Patient received a dose of IV Lasix 40 mg today. Physical examination: Gen: This is a 64-year-old male in no acute respiratory distress. VS: reviewed HEENT: Head is atraumatic, normocephalic. Pupils equal, round. Sclerae is anicteric. NECK: Supple. No JVD. LUNGS: Scattered rhonchi. Accessory muscle usage. HEART: Irregular rate and rhythm. No murmur. ABDOMEN: Soft No tenderness. EXTREMITIES: No pedal edema. No calf tenderness. NEUROLOGICAL: Patient is awake, alert and oriented x3. Assessment: Acute hypoxic respiratory failure secondary to influenza, pneumonia, and component of heart failure NSTEMI possibly secondary to sepsis, influenza and pneumonia Influenza A Pneumonia Mild acute on chronic systolic heart failure Acute kidney injury Lactic acidosis Cardiomyopathy with previous EF of 15 to 20%, possibly tachycardia induced Hypertension Hyperlipidemia Persistent atrial fibrillation status post previous cardioversion x 2, currently in sinus rhythm Diabetes mellitus type 2 Hyponatremia Plan: Continue patient's home cardiac medications: Eliquis 5 mg twice daily, aspirin 81 mg daily, atorvastatin 40 mg at bedtime, metoprolol succinate 25 mg daily Pulmonary is ordering IV Lasix daily as indicated, 40 mg given today Continue oxygen support Continue Tamiflu, steroids and IV antibiotics Further recommendations to follow based upon clinical course Nurse practitioner note has been reviewed, I agree with documented findings and plan of care. Patient was seen and examined. Objective - Vital Signs Vital signs: Vital Signs Temp 97.6 F 07/23/24 11:45 Pulse 62 07/23/24 11:48 Resp 25 H 07/23/24 11:48 BP 146/69 07/23/24 11:45 Pulse Ox 100 07/23/24 11:45 FiO2 60 07/23/24 11:45 Intake & Output 07/22/24 07/23/24 07/23/24 18:59 06:59 18:59 Intake Total 360 Output Total 100 525 Balance -100 -525 360 Weight 87.3 kg Intake: Oral 360 Output: Urine 525 Post Void Residual 100 Other: Voiding Method Bedside Commode Bedside Commode Urinal # Voids 1 # Bowel Movements 1 - Labs CBC & Chem 7: 07/23/24 06:55 07/23/24 06:55 Labs: Abnormal Lab Results - Last 24 Hours (Table) 07/23/24 07/23/24 07/23/24 Range/Units 06:55 06:55 11:13 Lymphocytes # 0.7 L (1.0-4.8) k/uL Sodium 133 L (137-145) mmol/L Chloride 97 L (98-107) mmol/L BUN 47 H (9-20) mg/dL Creatinine 1.54 H (0.66-1.25) mg/dL Glucose 132 H (74-99) mg/dL POC Glucose (mg/dL) 219 H (70-110) mg/dL Microbiology - Last 24 Hours (Table) 07/20/24 00:46 Blood Culture - Preliminary Blood
[2024-07-23 16:12] LABS: Glucose,Whole Blood 198 mg/dL (70-110)
[2024-07-23] MEDS: LORazepam 2 MG/ML INJ IV PRN (16:48)
[2024-07-23] MEDS: FLUTICASONE NASAL 50MCG/SPRAY 16GM BTL EA NOSTRIL PRN (17:06)
[2024-07-23] MEDS: methylPREDNISolone SOD SUCCI 125 MG/2 ML VIAL IV SCH (17:24)
[2024-07-23 20:21] LABS: Glucose,Whole Blood 227 mg/dL (70-110)
[2024-07-24 06:16] LABS: Glucose,Whole Blood 219 mg/dL (70-110)
--- NOTE | 2024-07-24 07:34 | XR ---
EXAMINATION TYPE: XR chest 1V portable DATE OF EXAM: 07/24/2024 CLINICAL HISTORY: Pneumonia progress study. TECHNIQUE: Single AP portable upright view of the chest is obtained. COMPARISON: Chest x-ray from one day earlier and older studies FINDINGS: Persistent cardiomegaly with confluent bilateral increased opacities. Osseous structures a re intact. IMPRESSION: Continued bilateral diffuse acute infiltrates and/or edema. Developing ARDS is not exclud ed. No significant change from one day earlier. [facility], , 07/24/2024 7:31 AM
[2024-07-24 08:20] LABS: Basophils % (A) 0 %; Eosinophils % (A) 0 %; HCT 42.6 % (39.0-53.0); HGB 13.6 gm/dL (13.0-17.5); Lymphocytes # (A) 0.5 k/uL (1.0-4.8); Lymphocytes % (A) 7 %; MCH 30.2 pg (25.0-35.0); MCHC 31.9 g/dL (31.0-37.0); MCV 94.7 fL (80.0-100.0); Mean Platelet Volume 10.3; Monocytes # (A) 0.5 k/uL (0-1.0); Monocytes % (A) 7 %; Neutrophils # (A) 5.6 k/uL (1.3-7.7); Neutrophils % (A) 84 %; Platelet Count 185 k/uL (150-450); RDW 12.5 % (11.5-15.5); WBC 6.7 k/uL (3.8-10.6)
[2024-07-24 09:12] LABS: African American GFR (CKD) 58 (>60 ml/min/1.73 sqM); Anion Gap 9 mmol/L; Blood Urea Nitrogen 54 mg/dL (9-20); Calcium 8.9 mg/dL (8.4-10.2); Carbon Dioxide 26 mmol/L (22-30); Chloride 98 mmol/L (98-107); Glucose 178 mg/dL (74-99); Non-African American GFR(CKD) 50 (>60 ml/min/1.73 sqM); Sodium 133 mmol/L (137-145)
[2024-07-24] MEDS: FUROSEMIDE 10 MG/ML 4 ML VIAL IV STA (09:15)
[2024-07-24 11:48] LABS: Glucose,Whole Blood 237 mg/dL (70-110)
--- NOTE | 2024-07-24 11:53 | P.PN ---
Subjective Progress Note Date: 07/24/24 Patient seen for follow-up for DARI and hyponatremia. He was taken off of BiPAP to eat his meal, at that time he dozed off and saturations dropped into the high 70s/low 80% and was placed back on BiPAP this morning. Continues to endorse urine production. Received another dose of Lasix this morning. Objective - Vital Signs Vital signs: Vital Signs Temp 98.1 F 07/24/24 04:00 Pulse 62 07/24/24 07:57 Resp 22 07/24/24 07:57 BP 159/75 07/24/24 04:00 Pulse Ox 88 L 07/24/24 07:57 FiO2 60 07/24/24 07:57 Intake & Output 07/23/24 07/24/24 07/24/24 18:59 06:59 18:59 Intake Total 540 118 Output Total 550 Balance 540 -550 118 Weight 64 kg Intake: Oral 540 118 Output: Urine 550 Other: Voiding Method Bedside Commode Urinal # Voids 1 # Bowel Movements 1 - Exam Patient is awake, comfortable, no acute distress. Heart: S1 and S2 heard Lungs: Bilateral breath sounds are heard Abdomen: Soft and nontender Lower extremities: No edema WAIVER ANALYST: grossly intact - Labs CBC & Chem 7: 07/24/24 07:39 07/24/24 07:39 Labs: Abnormal Lab Results - Last 24 Hours (Table) 07/23/24 07/23/24 07/23/24 Range/Units 11:13 16:11 20:12 Lymphocytes # (1.0-4.8) k/uL Sodium (137-145) mmol/L BUN (9-20) mg/dL Creatinine (0.66-1.25) mg/dL Glucose (74-99) mg/dL POC Glucose (mg/dL) 219 H 198 H 227 H (70-110) mg/dL 07/24/24 07/24/24 07/24/24 Range/Units 06:04 07:39 07:39 Lymphocytes # 0.5 L (1.0-4.8) k/uL Sodium 133 L (137-145) mmol/L BUN 54 H (9-20) mg/dL Creatinine 1.44 H (0.66-1.25) mg/dL Glucose 178 H (74-99) mg/dL POC Glucose (mg/dL) 219 H (70-110) mg/dL Microbiology - Last 24 Hours (Table) 07/20/24 00:46 Blood Culture - Preliminary Blood Assessment and Plan Assessment: #DARI secondary to ATN secondary to CRS; Renal function improving. #CKD stage 3a, baseline creatinine 1.6-1.7. #Hyponatremia secondary to hypervolemia and acute respiratory infection, improving 133 today #Sepsis secondary to influenza type a pneumonia, currently maintained on Tamiflu #Acute hypoxic respiratory failure secondary to above #HFrEF w/EF 45 to 50% #Type II NSTEMI Plan: -Received 40 mg IV Lasix this morning; reassess in a.m., continue IV Lasix as needed following reassessment -Creatinine improved to 1.44 this morning, BUN 44, sodium 133 -Chest x-ray showed continued worsening bilateral diffuse acute infiltrates and/or edema -Repeat chest x-ray 07/26/2024 to reassess -Recheck labs in a.m. -Maintain fluid restriction 1500 cc -Bladder scan showed <300 cc, Ortiz was not inserted -Avoid nephrotoxic agents -Continue to hold lisinopril I have seen and examined the patient with resident and agree with A&P as written.
--- NOTE | 2024-07-24 12:31 | P.PN ---
Subjective Progress Note Date: 07/24/24 Patient is a 64-year-old male with a PMH of A-fib on Eliquis, COPD not on home oxygen, type II DM, hypertension, hyperlipidemia, CKD stage IIIa who presents to the emergency room with complaints of shortness of breath and cough. Patient reports that over the past 1 week he has been experiencing gradually worsening persistent cough. Reports that the cough is nonproductive. He also reports exertional dyspnea. Denies experiencing fever or chills. Also denies chest discomfort, nausea, vomiting, abdominal pain, diarrhea. Chest x-ray in the emergency room revealed cardiomegaly along with findings of multifocal pneumonia. EKG revealed sinus rhythm at 93 bpm with intraventricular conduction delay as reviewed by me. Laboratory evaluation did reveal influenza type a positive, troponin 0.102, proBNP 12,900, lactic acid 3.3, glucose 228, BUN 25, creatinine 1.59, and WBC count 12.7 with neutrophilic predominance. Patient was reportedly severely hypoxic and in respiratory distress upon EMS arrival at the scene and was started on BiPAP. 07/21/2024 patient seen and examined at bedside. No acute events overnight. No new complaints. WBC 7.2, hemoglobin 14.1, platelet count 1 68,000, PT 12.1, INR 1.1, PTT 103.7, sodium 133, potassium 4.2, chloride 96, bicarb 27, BUN 44, creatinine 2.12, glucose 97. Troponin increased to 0.55 and has flattened. Chest x-ray done showed findings favor CHF exacerbation/fluid overload state. Areas of underlying acute infiltrate cannot be excluded. No significant change from most recent x-ray. 07/22/24 patient seen and examined at bedside. no new complaints. Currently comfortable on BiPAP. Labs today showed WBC 8.7, hemoglobin 12.8, MCV 93.7, platelet count 1 39,000, sodium 128, potassium 3.6, chloride 94, BUN 44, creatinine 1.99, calcium 7.8, glucose 113. ABG showed pH of 7.42, pCO2 38, pO2 74. Urinalysis showed +1 protein, moderate ketones, rare bacteria, 9 hyaline casts and rare mucus, negative nitrites, negative leukocyte esterase. Renal u ltrasound done on 07/21 showed negative for hydronephrosis, stones, bladder anechoic patient seen and examined at bedside. Given Ativan IV for anxiety overnight. No acute events. Still required BiPAP overnight. WBC 7.6, hemoglobin 13.9, platelet count 1 67,000, sodium 133, chloride 97, BUN 47, creatinine 1.54, glucose 132, calcium 8.5. Legionella Ag negative. Chest x-ray today showed continued worsening of bilateral diffuse acute infiltrates and/or edema, developing ARDS not included. 07/24/24 patient seen and examined at bedside. Still needed BiPAP overnight. No new complaints. No acute events overnight. Labs today show WBC 6.7, hemoglobin 13.6, platelet count 1 85,000, sodium 133, potassium 4, chloride 98, BUN 54, creatinine 1.44, glucose 178, A1c 6.2, calcium 8.9. Chest x-ray independently interpreted showed continued bilateral diffuse acute infiltrates and/or edema. No significant change from prior x-ray. Review of systems: Pertinent positives and negatives as discussed in HPI, a complete review of systems was performed and all other systems are negative. Pertinent imaging and labs reviewed. Physical examination: Vital signs reviewed General: non toxic, no distress, appears at stated age, BiPAP Derm: no unusual rashes/lesions, warm Head: atraumatic, normocephalic, symmetric Eyes: EOMI, anicteric sclera, pupils equal round reactive to light ENT: Nose and ears atraumatic Neck: No cervical lymphadenopathy, trachea midline, supple Mouth: no lip lesion, mucus membranes moist Cardiovascular: S1S2 reg, no murmur Lungs: Bibasilar crackles, expiratory wheezing in middle lung rapp no rhonchi, no rales, no accessory muscle use Abdominal: soft, nontender to palpation, no guarding Ext: muscle strength 5 out of 5 in all 4 extremities grossly, no gross muscle atrophy, no contractures, positive dorsalis pedis pulse bilateral, no edema Neuro: CN II-XI grossly intact, no gross focal neuro deficits Psych: Alert and oriented x3, appropriate affect and mood Assessment/Plan: 64-year-old male with history of COPD, A-fib on Eliquis and CKD stage III here for further management of cardiorenal syndrome and sepsis secondary to pneumonia now BiPAP dependent. #. Cardiorenal syndrome #. Heart failure with reduced ejection fraction EF of 45 to 50%, not on GDMT #. Hyponatremia secondary to above #. Acute kidney injury on CKD, improving -Echocardiogram in 07/20/2024 showed ejection fracture 45-50% with moderately increased septal wall thickness, biatrial dilatation, moderate tricuspid valve regurgitation -Lasix 20 mg IV every 8 discontinued due by cardiology -Lasix 40 mg IV given once today by pulmonology -Patient euvolemic today. Continue to monitor volume status. -Strict CHOCO's -Daily weights -Fluid restriction -Monitor BMP for electrolytes and renal function -Cardiology consulted -Metoprolol 25 mg daily. Initiate GDMT on discharge #. Sepsis secondary to influenza pneumonia, unable to rule out bacterial pneumonia #. Acute hypoxic respiratory failure, secondary to above #. Severe ARDS -P/F ratio 92 -Chest x-ray independently interpreted showed continued bilateral diffuse acute infiltrates and/or edema. No significant change from prior x-ray. -Procalcitonin elevated at 2.38 -Legionella urine antigen neagtive -Supportive oxygen as needed -Day 4 with Rocephin 2 g IVPB -Continue Tamiflu 30 mg p.o. every 12 hours -Hydrocortisone 50mg IV every 6 hours discontinued by pulmonology -Solumedrol 60mg IV every 6 hours per pulmonology -Blood culture negative at this time -Monitor CBC #. NSTEMI, type II -EKG revealed sinus rhythm at 93 bpm with intraventricular conduction delay on admission -Patient has no chest pain as of now -Troponins flattened at 0.5 -IV heparin for 48 hours. Now discontinued -Cardiology initiated atorvastatin 40 mg daily #. Lactic acidosis, resovled Chronic conditions: #. A-fib #. COPD #. Type II DM #. Hypertension #. Hyperlipidemia -Lisinopril held due to DARI -Continue Eliquis 5 mg twice daily, amiodarone 200 mg p.o. daily, metoprolol 25 mg daily -Hemoglobin A1c 6.2 -Levemir 10 units nightly -Not on home diabetes medications -Glucose Accu-Cheks ACHS -Initiate Insulin sliding scale ACHS -Monitor for hypoglycemia F: Restrict fluids due to 2 liters E: Monitor electrolytes particularly sodium and potassium N: Heart healthy diet A: Can ambulate with assistance DVT prophylaxis: Eliquis 5 mg p.o. daily Gabrielle Song MD PGY-1/Education Intern Dictation was produced using [employer] dictation software. please excuse any grammatical, word or spelling errors. I have seen and evaluated the patient today. Discussed with the resident and agree with the residents finding and plan as documented in the resident's note. Changes highlighted in blue font. Objective - Vital Signs Vital signs: Vital Signs Temp 98.1 F 07/24/24 04:00 Pulse 54 L 07/24/24 04:00 Resp 18 07/24/24 04:00 BP 159/75 07/24/24 04:00 Pulse Ox 92 L 07/24/24 04:00 FiO2 60 07/24/24 04:40 Intake & Output 07/23/24 07/23/24 07/24/24 06:59 18:59 06:59 Intake Total 540 Output Total 525 550 Balance -525 540 -550 Weight 87.3 kg 64 kg Intake: Oral 540 Output: Urine 525 550 Other: Voiding Method Bedside Commode Bedside Commode Urinal Urinal # Voids 1 # Bowel Movements 1 - Labs CBC & Chem 7: 07/24/24 07:39 07/24/24 07:39 Labs: Abnormal Lab Results - Last 24 Hours (Table) 07/23/24 07/23/24 07/23/24 Range/Units 06:55 06:55 11:13 Lymphocytes # 0.7 L (1.0-4.8) k/uL Sodium 133 L (137-145) mmol/L Chloride 97 L (98-107) mmol/L BUN 47 H (9-20) mg/dL Creatinine 1.54 H (0.66-1.25) mg/dL Glucose 132 H (74-99) mg/dL POC Glucose (mg/dL) 219 H (70-110) mg/dL 07/23/24 07/23/24 07/24/24 Range/Units 16:11 20:12 06:04 Lymphocytes # (1.0-4.8) k/uL Sodium (137-145) mmol/L Chloride (98-107) mmol/L BUN (9-20) mg/dL Creatinine (0.66-1.25) mg/dL Glucose (74-99) mg/dL POC Glucose (mg/dL) 198 H 227 H 219 H (70-110) mg/dL Microbiology - Last 24 Hours (Table) 07/20/24 00:46 Blood Culture - Preliminary Blood
--- NOTE | 2024-07-24 14:43 | P.PN ---
Subjective Progress Note Date: 07/24/24 Reason for Consult (text): NSTEMI History of present illness: This is a 64-year-old male patient of Dr. Toledo with past medical history of chronic kidney disease stage III, COPD tobacco use, alcohol abuse, hypertension, diabetes mellitus type 2, persistent atrial fibrillation, systolic heart failure, recent GI bleed, family history of premature coronary artery disease. We have been asked to evaluate the patient for NSTEMI. Patient states he had a cough for 10 days that was dry with increasing shortness of breath but gradually worsening. He does not have home oxygen therapy. He denies any chest pain or chest pressure. Prior to this episode, patient was feeling well with no shortness of breath. He is now not eating or drinking very much with decreased appetite. At home, he states he was taking all of his prescribed medications. He is urinating okay. He presented with a blood pressure of 200/113. He does not check his blood pressure at home. Temperature max 102.3. Blood pressure now 161/88, heart rate 75, pulse ox 96% on BiPAP. He denies smoking and denies alcohol use. Patient has been started on heparin drip. Patient is seen today in the emergency center waiting for a bed on the cardiac stepdown unit. -EKG: Sinus rhythm with IVCD -Chest x-ray: Cardiomegaly. Areas of airspace disease most notably at the left mid and lower lung suggestive of multifocal pneumonia. -Laboratory studies: WBC initially 12.7 and repeat 10.5, hemoglobin 14.3. Sodium 135, potassium 4.3, BUN 29 creatinine 1.86. Lactic acid 3.2 followed by 1.9. Troponin 0.102, 0.327. Influenza A detected. -Home cardiac medications: Amiodarone 200 mg daily, Eliquis 5 mg twice daily, Lasix 40 mg daily, lisinopril 20 mg twice daily, metoprolol succinate 25 mg daily. -ABHIJIT and cardioversion performed on 01/03/2023 revealed aortic valve is tricuspid, functioning normally with trace AI. Mitral valve appears to be normal with mild regurgitation. Tricuspid valve appears to be normal with moderate to severe tricuspid regurgitation. There is a PFO. Left atrial appendage is free of clot. EF 35%. -ABHIJIT and cardioversion performed 04/16/2022. Dobutamine stress echocardiogram performed in the office on 12/27/2020 revealed nondiagnostic EKG portion secondary to baseline EKG abnormalities. Normal stress echo portion without inducible ischemia. Normal left ventricular ejection fraction of 60%. 07/21 Patient seen and examined on the cardiac stepdown unit. Patient states he still has a significant amount of coughing. No lower extremity edema. He states he is having some chills as well. Patient states he is urinating a lot but not eating very much with decreased appetite. He has been maintained on IV Lasix at 20 mg every 8 hours as well as heparin drip. No complaints of chest pain. Blood pressure 119/55, heart rate 71, pulse ox 90% on BiPAP. Repeat blood work reveals WBC 7.2, hemoglobin 14.1. Sodium 133, BUN 44 and creatinine 2.12. Echocardiogram reveals EF of 45 to 50%, moderately increased septal wall thickness, moderate biatrial dilatation, moderate tricuspid regurgitation. 07/22 Patient seen and examined. He is currently on BiPAP with pulse ox of 95% on FiO2 of 80, blood pressure 117/60, respiratory rate 35, heart rate 70. Temperature max 101.5. Repeat blood work reveals hemoglobin 12.8. Sodium 128, potassium 3.6, BUN 45 creatinine 1.99. 07/23 Patient seen and examined. Patient has been going back and forth between BiPAP and high flow nasal cannula at 15 L. Blood pressure 146/69, heart rate 50s and 60s, respiratory rate 28. Repeat lab work reveals hemoglobin 13.3, BUN 47 creatinine 1.54, sodium 133, potassium 3.9. Patient received a dose of IV Lasix 40 mg today. 07/24 Patient seen and examined. Patient continues to have cough with cough and sputum production. He denies any lower extremity edema. Kidney function is improving. Blood pressure 164/85, heart rate 64, pulse ox 96% on BiPAP at 60% FiO2. Repeat blood work reveals hemoglobin of 13.2, BUN 54 creatinine 1.44. Physical examination: Gen: This is a 64-year-old male in no acute respiratory distress. VS: reviewed HEENT: Head is atraumatic, normocephalic. Pupils equal, round. Sclerae is anicteric. NECK: Supple. No JVD. LUNGS: Scattered rhonchi. Accessory muscle usage. HEART: Irregular rate and rhythm. No murmur. ABDOMEN: Soft No tenderness. EXTREMITIES: No pedal edema. No calf tenderness. NEUROLOGICAL: Patient is awake, alert and oriented x3. Assessment: Acute hypoxic respiratory failure secondary to influenza, pneumonia, and component of heart failure NSTEMI possibly secondary to sepsis, influenza and pneumonia Influenza A Pneumonia Mild acute on chronic systolic heart failure Acute kidney injury Lactic acidosis Cardiomyopathy with previous EF of 15 to 20%, possibly tachycardia induced Hypertension Hyperlipidemia Persistent atrial fibrillation status post previous cardioversion x 2, currently in sinus rhythm Diabetes mellitus type 2 Hyponatremia Plan: Continue patient's home cardiac medications: Eliquis 5 mg twice daily, aspirin 81 mg daily, atorvastatin 40 mg at bedtime, metoprolol succinate 25 mg daily Pulmonary is ordering IV Lasix daily as indicated, 40 mg given today Continue oxygen support Continue Tamiflu, steroids and IV antibiotics No further cardiac workup at this time Cardiology will sign off this case and follow on an as-needed basis. Please reconsult for any new concerns. Patient may follow-up in the office in one to 2 weeks. Nurse practitioner note has been reviewed, I agree with documented findings and plan of care. Patient was seen and examined. Objective - Vital Signs Vital signs: Vital Signs Temp 98.8 F 07/24/24 08:00 Pulse 68 07/24/24 11:51 Resp 30 H 07/24/24 11:51 BP 160/76 07/24/24 08:00 Pulse Ox 79 L 07/24/24 08:00 FiO2 60 07/24/24 11:41 Intake & Output 07/23/24 07/24/24 07/24/24 18:59 06:59 18:59 Intake Total 540 118 Output Total 550 Balance 540 -550 118 Weight 64 kg Intake: Oral 540 118 Output: Urine 550 Other: Voiding Method Bedside Commode Urinal # Voids 1 # Bowel Movements 1 - Labs CBC & Chem 7: 07/24/24 07:39 07/24/24 07:39 Labs: Abnormal Lab Results - Last 24 Hours (Table) 07/23/24 07/23/24 07/24/24 Range/Units 16:11 20:12 06:04 Lymphocytes # (1.0-4.8) k/uL Sodium (137-145) mmol/L BUN (9-20) mg/dL Creatinine (0.66-1.25) mg/dL Glucose (74-99) mg/dL POC Glucose (mg/dL) 198 H 227 H 219 H (70-110) mg/dL Hemoglobin A1c (<=6.0) % 07/24/24 07/24/24 07/24/24 Range/Units 07:39 07:39 07:39 Lymphocytes # 0.5 L (1.0-4.8) k/uL Sodium 133 L (137-145) mmol/L BUN 54 H (9-20) mg/dL Creatinine 1.44 H (0.66-1.25) mg/dL Glucose 178 H (74-99) mg/dL POC Glucose (mg/dL) (70-110) mg/dL Hemoglobin A1c 6.2 H (<=6.0) % 07/24/24 Range/Units 11:47 Lymphocytes # (1.0-4.8) k/uL Sodium (137-145) mmol/L BUN (9-20) mg/dL Creatinine (0.66-1.25) mg/dL Glucose (74-99) mg/dL POC Glucose (mg/dL) 237 H (70-110) mg/dL Hemoglobin A1c (<=6.0) % Microbiology - Last 24 Hours (Table) 07/20/24 00:46 Blood Culture - Preliminary Blood
--- NOTE | 2024-07-24 16:09 | P.PN ---
Subjective Progress Note Date: 07/24/24 This is a 64-year-old male patient with chronic and ongoing tobacco dependence, atrial fibrillation, diabetes mellitus, hypertension, hyperlipidemia who has a 1 week history of increasing shortness of breath, cough congestion fever and chills. He came into the emergency room last evening with severe shortness of breath requiring BiPAP support which was 14/5 and 50% FiO2. Chest x-ray revealed cardiomegaly and airspace disease most notably in the left mid lower lung zone suggestive of multifocal pneumonia and possible fluid volume overload. White count 10.5. Hemoglobin 14.3. Platelets 156. Sodium 135. Potassium 4.3. Bicarb 27. BUN 29. Creatinine 1.86. Glucose 174. Troponins 0.327, 0.550, 0.5-2. He is initiated on a heparin drip. proBNP was 13,000. Procalcitonin 2.38. He did test positive for influenza A. Initiated on Tamiflu. Initiated on ceftriaxone. He is seen today in consultation in the emergency department. He is currently sitting up on the stretcher. Awake and alert. He is on 6 L high flow nasal cannula. He is breathing a bit easier today compared to yesterday. Still with a loose nonproductive cough. He did have a Tmax of 102.3. Current temperature 99.1. He is hemodynamically stable. The patient is seen today July 21, 2024 in follow-up on the regular medical floor. He is awake and alert in no acute distress. Doing slightly better today compared to yesterday. He is still requiring 10 L high flow nasal cannula. Chest x-ray continues to show evidence of fluid volume overload/CHF. Echocardiogram reveals mildly impaired left ventricular systolic function with ejection fraction of 45 to 50%. Moderately reduced global LV function. Blood culture is pending. White count 7.2. Hemoglobin 14.1. Platelets 168. Sodium 133. Potassium 4.2. Bicarb 27. BUN 44. Creatinine 2.12. Stool for occult blood was negative. Since. Anticoagulated with Eliquis. Antibiotics in the form of ceftriaxone and azithromycin. He is continued on Tamiflu. Lasix discontinued per cardiology. The patient is seen today July 22, 2024 in follow-up on the regular medical floor. He is currently on BiPAP 14/5 and 80% FiO2. He was trialed on 12 L high flow earlier this morning with O2 saturations in the 70s and 80s. Arterial blood gases on the 80% FiO2 revealed a PaO2 of 74, pCO2 of 38 and a pH of 7.42. A chest x-ray revealed similar findings of persistent cardiomegaly with bilateral multifocal acute infiltrates and/or edema. He received Lasix 40 mg IVP x 1. Blood culture reveals no growth to date. White count 8.7. Hemoglobin 12.8. Platelets 139. Sodium 128. Potassium 3.6. Bicarb 29. BUN 45. Creatinine 1.99. He is continued on DuoNeb inhalations. Continued on Tamiflu. Initiated on Solu-Cortef. Remains on antibiotics in the form of ceftriaxone and azithromycin. Anticoagulated with Eliquis. Currently on a 1500 mL fluid restriction. Nephrology is following. SAGAR inhibitor remains on hold. The patient is seen today July 23, 2024 in follow-up on the regular medical floor. He is currently sitting up in bed. Still requiring BiPAP support currently 14/5 and 60% FiO2. He remains on DuoNeb and elations, Solu-Cortef, Tamiflu. Anticoagulated with Eliquis. Antibiotics in the form of ceftriaxone. Blood culture reveals no growth. White count 7.6. Hemoglobin 13.3. Platelets 167. Sodium 133. Potassium 3.9. Bicarb 28. BUN 47. Creatinine 1.54. Glucose 132. Chest x-ray continues to show worsening bilateral diffuse acute infiltrates and/or edema. Developing ARDS is not excluded. He is given Lasix 40 mg IVP today. Currently in a negative balance. The patient is seen today July 24, 2024 in follow-up on the regular medical floor. Resting in bed. Currently afebrile. Hemodynamically stable. He contin ues to require BiPAP support 10/5 and 50% FiO2. He has been tolerating some time off on 15 L high flow nasal cannula with O2 saturations in the upper 80s. Blood culture revealed no growth. White count 6.7. Hemoglobin 13.6. Platelets 185. Sodium 133. Potassium 4.0. Bicarb 26. BUN 54. Creatinine 1.44. Glucose 178. He is continued on DuoNeb inhalations, Pulmicort and Perforomist inhalations, Solu-Medrol. Anticoagulated with Eliquis. Continued on Tamiflu. Completed a course of ceftriaxone. Received Lasix 40 mg IVP x 1 again today. Remains in a negative balance. X-ray continues to show bilateral diffuse acute infiltrates and/or edema. ARDS is not excluded. No significant change. Objective - Vital Signs Vital signs: Vital Signs Temp 98.0 F 07/24/24 12:00 Pulse 68 07/24/24 15:39 Resp 22 07/24/24 15:39 BP 164/85 07/24/24 12:00 Pulse Ox 96 07/24/24 12:00 FiO2 50 07/24/24 15:28 Intake & Output 07/23/24 07/24/24 07/24/24 18:59 06:59 18:59 Intake Total 540 236 Output Total 550 Balance 540 -550 236 Weight 64 kg Intake: Oral 540 236 Output: Urine 550 Other: Voiding Method Bedside Commode Bedside Commode Urinal Urinal # Voids 1 # Bowel Movements 1 - Exam GENERAL EXAM: Alert, pleasant 64-year-old male, sitting up in bed, on BiPAP 14/5 and 50% FiO2, fairly comfortable in no apparent distress. HEAD: Normocephalic. EYES: Normal reaction of pupils, equal size. NOSE: Clear with pink turbinates. THROAT: No erythema or exudates. NECK: No masses, no JVD. CHEST: No chest wall deformity. LUNGS: Equal air entry with crackles in the bilateral bases, few scattered rhonchi, diminished. CVS: S1 and S2 normal with no audible murmur, regular rhythm. ABDOMEN: No hepatosplenomegaly, normal bowel sounds, no guarding or rigidity. SPINE: No scoliosis or deformity SKIN: No rashes CENTRAL NERVOUS SYSTEM: No focal deficits, tone is normal in all 4 extremities. EXTREMITIES: There is 1+ peripheral edema. No clubbing, no cyanosis. Peripheral pulses are intact. - Labs CBC & Chem 7: 07/24/24 07:39 07/24/24 07:39 Labs: Abnormal Lab Results - Last 24 Hours (Table) 07/23/24 07/23/24 07/24/24 Range/Units 16:11 20:12 06:04 Lymphocytes # (1.0-4.8) k/uL Sodium (137-145) mmol/L BUN (9-20) mg/dL Creatinine (0.66-1.25) mg/dL Glucose (74-99) mg/dL POC Glucose (mg/dL) 198 H 227 H 219 H (70-110) mg/dL Hemoglobin A1c (<=6.0) % 07/24/24 07/24/24 07/24/24 Range/Units 07:39 07:39 07:39 Lymphocytes # 0.5 L (1.0-4.8) k/uL Sodium 133 L (137-145) mmol/L BUN 54 H (9-20) mg/dL Creatinine 1.44 H (0.66-1.25) mg/dL Glucose 178 H (74-99) mg/dL POC Glucose (mg/dL) (70-110) mg/dL Hemoglobin A1c 6.2 H (<=6.0) % 07/24/24 Range/Units 11:47 Lymphocytes # (1.0-4.8) k/uL Sodium (137-145) mmol/L BUN (9-20) mg/dL Creatinine (0.66-1.25) mg/dL Glucose (74-99) mg/dL POC Glucose (mg/dL) 237 H (70-110) mg/dL Hemoglobin A1c (<=6.0) % Microbiology - Last 24 Hours (Table) 07/20/24 00:46 Blood Culture - Preliminary Blood Assessment and Plan Assessment: Acute hypoxemic respiratory failure secondary to an acute exacerbation of chronic obstructive pulmonary disease complicated by influenza A and underlying pneumonia. Procalcitonin 2.38. Acute influenza A infection Acute exacerbation of chronic systolic congestive heart failure with an ejection fraction now 45-50% Troponin leak possible non-ST segment elevation myocardial infarction secondary to above Acute kidney injury History of atrial fibrillation with previous cardioversion maintained on amiodarone and Eliquis Chronic tobacco dependence with suspected underlying COPD Hypertension Hyperlipidemia Diabetes mellitus, type II Plan: The patient was seen and evaluated Chest x-ray, labs and medications reviewed Currently on BiPAP 14/5 and 50% FiO2 Transition to high flow nasal cannula if tolerated Continue to titrate down the FiO2 as tolerated Lasix 40 mg IVP x 1 again today Renew ceftriaxone Continue DuoNeb inhalations, Symbicort Add Pulmicort and Perforomist inhalations Continue Solu-Medrol Continue Tamiflu Anticoagulated with Eliquis Condition remains guarded We will continue to follow I have personally seen and examined the patient, performed the documentation and the assessment and plan as written. Number of minutes spent on the visit: 10 Dictation was produced using [employer] dictation software. Please excuse any gramm atical, word or spelling errors.
[2024-07-24 16:25] LABS: Glucose,Whole Blood 380 mg/dL (70-110)
[2024-07-24] MEDS: FUROSEMIDE 10 MG/ML 4 ML VIAL IV SCH (17:29)
[2024-07-24] MEDS: amLODIPine 5 MG TAB PO STA (18:36)
[2024-07-24 20:31] LABS: Glucose,Whole Blood 316 mg/dL (70-110)
[2024-07-24] MEDS: FORMOTEROL FUMARATE 20 MCG/2 ML NEBU INHALATION SCH (21:00)
[2024-07-24] MEDS: BUDESONIDE 1 MG/2 ML NEBU INHALATION SCH (21:00)
[2024-07-24] MEDS: INSULIN GLARGINE (LANTUS) 100 UNIT/ML SYR SQ SCH (21:10)
[2024-07-25 06:27] LABS: Glucose,Whole Blood 242 mg/dL (70-110)
[2024-07-25 06:46] LABS: Basophils % (A) 0 %; Eosinophils % (A) 0 %; HCT 39.3 % (39.0-53.0); HGB 12.8 gm/dL (13.0-17.5); Lymphocytes # (A) 0.5 k/uL (1.0-4.8); Lymphocytes % (A) 4 %; MCH 30.5 pg (25.0-35.0); MCHC 32.6 g/dL (31.0-37.0); MCV 93.3 fL (80.0-100.0); Mean Platelet Volume 10.3; Monocytes # (A) 0.7 k/uL (0-1.0); Monocytes % (A) 6 %; Neutrophils % (A) 88 %; Platelet Count 219 k/uL (150-450); RBC 4.21 m/uL (4.30-5.90); RDW 12.9 % (11.5-15.5); WBC 12.5 k/uL (3.8-10.6)
[2024-07-25 07:35] LABS: African American GFR (CKD) 60 (>60 ml/min/1.73 sqM); Anion Gap 8 mmol/L; Blood Urea Nitrogen 58 mg/dL (9-20); Carbon Dioxide 27 mmol/L (22-30); Chloride 97 mmol/L (98-107); Glucose 236 mg/dL (74-99); Non-African American GFR(CKD) 52 (>60 ml/min/1.73 sqM); Potassium 3.9 mmol/L (3.5-5.1); Sodium 132 mmol/L (137-145)
--- NOTE | 2024-07-25 08:12 | XR ---
EXAMINATION TYPE: XR chest 1V portable DATE OF EXAM: 07/25/2024 8:06 AM COMPARISON: Multiple radiographs, with the most recent on 07/24/2024 TECHNIQUE: XR chest 1V portable Portable AP radiograph of the chest. CLINICAL INDICATION:Male, 64 years old with history of chf/pneumonia; FINDINGS: Lungs/Pleura: No pleural effusion or pneumothorax. Similar diffuse patchy airspace opacities througho ut both lungs. Pulmonary vascularity: Unremarkable. Heart/mediastinum: Cardiomediastinal silhouette is enlarged and stable. Atherosclerotic calcificatio ns are seen in the aorta. Musculoskeletal: No acute osseous pathology. IMPRESSION: Similar diffuse patchy airspace opacities throughout the lungs likely presenting acute infiltrates an d/or edema. Developing ARDS is not excluded. [facility], , 07/25/2024 8:10 AM
[2024-07-25] MEDS: amLODIPine 5 MG TAB PO SCH (08:36)
[2024-07-25] MEDS: INSULIN LISPRO (HumaLOG) 100 UNIT/ML 10 mL VL SQ SCH (08:41)
--- NOTE | 2024-07-25 10:09 | P.PN ---
Subjective Patient seen for follow-up for DARI and hyponatremia. Renal function and sodium level stable. On nasal cannula. Vital signs are stable. General: No acute distress. HEENT: Head exam is unremarkable. LUNGS: No audible rhonchi or wheezes. HEART: Rate and Rhythm are regular. ABDOMEN: Nontender. EXTREMITITES: No edema. Objective - Vital Signs Vital signs: Vital Signs Temp 98.0 F 07/25/24 04:00 Pulse 62 07/25/24 08:05 Resp 22 07/25/24 08:00 BP 165/69 07/25/24 08:00 Pulse Ox 86 L 07/25/24 08:00 FiO2 50 07/25/24 05:08 Intake & Output 07/24/24 07/25/24 07/25/24 18:59 06:59 18:59 Intake Total 354 Output Total 700 Balance 354 -700 Intake: Oral 354 Output: Urine 700 Other: Voiding Method Bedside Commode Bedside Commode Urinal Urinal - Labs CBC & Chem 7: 07/25/24 06:12 07/25/24 06:12 Labs: Abnormal Lab Results - Last 24 Hours (Table) 07/24/24 07/24/24 07/24/24 Range/Units 07:39 11:47 16:24 WBC (3.8-10.6) k/uL RBC (4.30-5.90) m/uL Hgb (13.0-17.5) gm/dL Neutrophils # (1.3-7.7) k/uL Lymphocytes # (1.0-4.8) k/uL Sodium (137-145) mmol/L Chloride (98-107) mmol/L BUN (9-20) mg/dL Creatinine (0.66-1.25) mg/dL Glucose (74-99) mg/dL POC Glucose (mg/dL) 237 H 380 H (70-110) mg/dL Hemoglobin A1c 6.2 H (<=6.0) % 07/24/24 07/25/24 07/25/24 Range/Units 20:30 06:12 06:12 WBC 12.5 H (3.8-10.6) k/uL RBC 4.21 L (4.30-5.90) m/uL Hgb 12.8 L (13.0-17.5) gm/dL Neutrophils # 11.0 H (1.3-7.7) k/uL Lymphocytes # 0.5 L (1.0-4.8) k/uL Sodium 132 L (137-145) mmol/L Chloride 97 L (98-107) mmol/L BUN 58 H (9-20) mg/dL Creatinine 1.40 H (0.66-1.25) mg/dL Glucose 236 H (74-99) mg/dL POC Glucose (mg/dL) 316 H (70-110) mg/dL Hemoglobin A1c (<=6.0) % 07/25/24 Range/Units 06:26 WBC (3.8-10.6) k/uL RBC (4.30-5.90) m/uL Hgb (13.0-17.5) gm/dL Neutrophils # (1.3-7.7) k/uL Lymphocytes # (1.0-4.8) k/uL Sodium (137-145) mmol/L Chloride (98-107) mmol/L BUN (9-20) mg/dL Creatinine (0.66-1.25) mg/dL Glucose (74-99) mg/dL POC Glucose (mg/dL) 242 H (70-110) mg/dL Hemoglobin A1c (<=6.0) % Assessment and Plan Assessment: #DARI secondary to ATN secondary to CRS; Renal function improving. #CKD stage 3a, baseline creatinine 1.6-1.7. #Hyponatremia secondary to hypervolemia and acute respiratory infection, stable. #Sepsis secondary to influenza type a pneumonia, currently maintained on Tamiflu #Acute hypoxic respiratory failure secondary to above #HFrEF w/EF 45 to 50% #Type II NSTEMI Plan: -Repeat IV Lasix 40 mg once today. -Recheck labs in a.m. -Maintain fluid restriction 1500 cc -Bladder scan showed <300 cc, Ortiz was not inserted -Avoid nephrotoxic agents -Continue to hold lisinopril
[2024-07-25 11:38] LABS: Glucose,Whole Blood 444 mg/dL (70-110)
[2024-07-25] MEDS: FUROSEMIDE 10 MG/ML 4 ML VIAL IV STA (11:59)
--- NOTE | 2024-07-25 12:13 | P.PN ---
Subjective Progress Note Date: 07/25/24 Patient is a 64-year-old male with a PMH of A-fib on Eliquis, COPD not on home oxygen, type II DM, hypertension, hyperlipidemia, CKD stage IIIa who presents to the emergency room with complaints of shortness of breath and cough. Patient reports that over the past 1 week he has been experiencing gradually worsening persistent cough. Reports that the cough is nonproductive. He also reports exertional dyspnea. Denies experiencing fever or chills. Also denies chest discomfort, nausea, vomiting, abdominal pain, diarrhea. Chest x-ray in the emergency room revealed cardiomegaly along with findings of multifocal pneumonia. EKG revealed sinus rhythm at 93 bpm with intraventricular conduction delay as reviewed by me. Laboratory evaluation did reveal influenza type a positive, troponin 0.102, proBNP 12,900, lactic acid 3.3, glucose 228, BUN 25, creatinine 1.59, and WBC count 12.7 with neutrophilic predominance. Patient was reportedly severely hypoxic and in respiratory distress upon EMS arrival at the scene and was started on BiPAP. 07/21/2024 patient seen and examined at bedside. No acute events overnight. No new complaints. WBC 7.2, hemoglobin 14.1, platelet count 1 68,000, PT 12.1, INR 1.1, PTT 103.7, sodium 133, potassium 4.2, chloride 96, bicarb 27, BUN 44, creatinine 2.12, glucose 97. Troponin increased to 0.55 and has flattened. Chest x-ray done showed findings favor CHF exacerbation/fluid overload state. Areas of underlying acute infiltrate cannot be excluded. No significant change from most recent x-ray. 07/22/24 patient seen and examined at bedside. no new complaints. Currently comfortable on BiPAP. Labs today showed WBC 8.7, hemoglobin 12.8, MCV 93.7, platelet count 1 39,000, sodium 128, potassium 3.6, chloride 94, BUN 44, creatinine 1.99, calcium 7.8, glucose 113. ABG showed pH of 7.42, pCO2 38, pO2 74. Urinalysis showed +1 protein, moderate ketones, rare bacteria, 9 hyaline casts and rare mucus, negative nitrites, negative leukocyte esterase. Renal u ltrasound done on 07/21 showed negative for hydronephrosis, stones, bladder anechoic patient seen and examined at bedside. Given Ativan IV for anxiety overnight. No acute events. Still required BiPAP overnight. WBC 7.6, hemoglobin 13.9, platelet count 1 67,000, sodium 133, chloride 97, BUN 47, creatinine 1.54, glucose 132, calcium 8.5. Legionella Ag negative. Chest x-ray today showed continued worsening of bilateral diffuse acute infiltrates and/or edema, developing ARDS not included. 07/24/24 patient seen and examined at bedside. Still needed BiPAP overnight. No new complaints. No acute events overnight. Labs today show WBC 6.7, hemoglobin 13.6, platelet count 1 85,000, sodium 133, potassium 4, chloride 98, BUN 54, creatinine 1.44, glucose 178, A1c 6.2, calcium 8.9. Chest x-ray independently interpreted showed continued bilateral diffuse acute infiltrates and/or edema. No significant change from prior x-ray. 07/25/2024 patient seen and examined at bedside. No acute events overnight. No new complaints. Still requiring BiPAP overnight. Labs today showed WBC 12.5, hemoglobin 12.8, MCV 93.3, platelet count 219,000, sodium 132, potassium 3.9, chloride 97, bicarb 27, BUN 58, creatinine 1.4, glucose 236, calcium 9, magnesium 2. Chest x-ray independently interpreted showed similar diffuse patchy airspace opacities throughout the lungs likely representing acute infiltrates and/or edema. Review of systems: Pertinent positives and negatives as discussed in HPI, a complete review of systems was performed and all other systems are negative. Pertinent imaging and labs reviewed. Physical examination: Vital signs reviewed General: non toxic, no distress, appears at stated age, HFNC Derm: no unusual rashes/lesions, warm Head: atraumatic, normocephalic, symmetric Eyes: EOMI, anicteric sclera, pupils equal round reactive to light ENT: Nose and ears atraumatic Neck: No cervical lymphadenopathy, trachea midline, supple Mouth: no lip lesion, mucus membranes moist Cardiovascular: S1S2 reg, no murmur Lungs: decreased breath sounds in all lung rapp, expiratory wheezing in middle lung rapp no rhonchi, no rales, no accessory muscle use Abdominal: soft, nontender to palpation, no guarding Ext: muscle strength 5 out of 5 in all 4 extremities grossly, no gross muscle atrophy, no contractures, positive dorsalis pedis pulse bilateral, no edema Neuro: CN II-XI grossly intact, no gross focal neuro deficits Psych: Alert and oriented x3, appropriate affect and mood Assessment/Plan: 64-year-old male with history of COPD, A-fib on Eliquis and CKD stage III here for further management of cardiorenal syndrome and sepsis secondary to pneumonia now BiPAP dependent. #. Cardiorenal syndrome #. Heart failure with reduced ejection fraction EF of 45 to 50%, not on GDMT #. Hyponatremia secondary to above #. Acute kidney injury on CKD, improving -Echocardiogram in 07/20/2024 showed ejection fracture 45-50% with moderately increased septal wall thickness, biatrial dilatation, moderate tricuspid valve regurgitation -Lasix 40 mg IV given once today by nephrology -Patient euvolemic today. Continue to monitor volume status. -Strict CHOCO's -Daily weights -Fluid restriction -Monitor BMP for electrolytes and renal function -Cardiology consulted -Metoprolol 25 mg daily. Initiate GDMT on discharge #. Sepsis secondary to influenza pneumonia, unable to rule out bacterial pneumon ia #. Acute hypoxic respiratory failure, secondary to above #. Severe ARDS -P/F ratio 92 -Chest x-ray independently interpreted showed similar diffuse patchy airspace opacities throughout the lungs likely representing acute infiltrates and/or edema. -Procalcitonin elevated at 2.38 -Legionella urine antigen neagtive -Supportive oxygen as needed -Continue with Rocephin 2 g IVPB per pulmonology -Continue Tamiflu 30 mg p.o. every 12 hours -Hydrocortisone 50mg IV every 6 hours discontinued by pulmonology -Solumedrol 60mg IV every 6 hours per pulmonology -Blood culture negative at this time -Monitor CBC #. NSTEMI, type II -EKG revealed sinus rhythm at 93 bpm with intraventricular conduction delay on admission -Patient has no chest pain as of now -Troponins flattened at 0.5 -IV heparin for 48 hours. Now discontinued -Cardiology initiated atorvastatin 40 mg daily #. Lactic acidosis, resovled Chronic conditions: #. A-fib #. COPD #. Type II DM #. Hypertension #. Hyperlipidemia -Lisinopril held due to DARI -Continue Eliquis 5 mg twice daily, amiodarone 200 mg p.o. daily, metoprolol 25 mg daily -Hemoglobin A1c 6.2 -Levemir 20 units nightly -Initiate lispro 5 units SQ ACHS for meal coverage -Not on home diabetes medications -Glucose Accu-Cheks ACHS -Continue insulin sliding scale ACHS -Monitor for hypoglycemia F: Restrict fluids due to 2 liters E: Monitor electrolytes particularly sodium and potassium N: Heart healthy diet A: Can ambulate with assistance DVT prophylaxis: Eliquis 5 mg p.o. daily Gabrielle Song MD PGY-1/[employer] Dictation was produced using [employer] dictation software. please excuse any grammatical, word or spelling errors. I have seen and evaluated the patient today. Discussed with the resident and agree with the residents finding and plan as documented in the resident's note. Changes highlighted in blue font. Objective - Vital Signs Vital signs: Vital Signs Temp 98.0 F 07/25/24 04:00 Pulse 62 07/25/24 04:00 Resp 18 07/25/24 04:00 BP 171/89 07/25/24 04:00 Pulse Ox 96 07/25/24 04:00 FiO2 50 07/25/24 05:08 Intake & Output 07/24/24 07/25/24 07/25/24 18:59 06:59 18:59 Intake Total 354 Output Total 700 Balance 354 -700 Intake: Oral 354 Output: Urine 700 Other: Voiding Method Bedside Commode Bedside Commode Urinal Urinal - Labs CBC & Chem 7: 07/25/24 06:12 07/25/24 06:12 Labs: Abnormal Lab Results - Last 24 Hours (Table) 07/24/24 07/24/24 07/24/24 Range/Units 07:39 07:39 07:39 WBC (3.8-10.6) k/uL RBC (4.30-5.90) m/uL Hgb (13.0-17.5) gm/dL Neutrophils # (1.3-7.7) k/uL Lymphocytes # 0.5 L (1.0-4.8) k/uL Sodium 133 L (137-145) mmol/L BUN 54 H (9-20) mg/dL Creatinine 1.44 H (0.66-1.25) mg/dL Glucose 178 H (74-99) mg/dL POC Glucose (mg/dL) (70-110) mg/dL Hemoglobin A1c 6.2 H (<=6.0) % 07/24/24 07/24/24 07/24/24 Range/Units 11:47 16:24 20:30 WBC (3.8-10.6) k/uL RBC (4.30-5.90) m/uL Hgb (13.0-17.5) gm/dL Neutrophils # (1.3-7.7) k/uL Lymphocytes # (1.0-4.8) k/uL Sodium (137-145) mmol/L BUN (9-20) mg/dL Creatinine (0.66-1.25) mg/dL Glucose (74-99) mg/dL POC Glucose (mg/dL) 237 H 380 H 316 H (70-110) mg/dL Hemoglobin A1c (<=6.0) % 07/25/24 07/25/24 Range/Units 06:12 06:26 WBC 12.5 H (3.8-10.6) k/uL RBC 4.21 L (4.30-5.90) m/uL Hgb 12.8 L (13.0-17.5) gm/dL Neutrophils # 11.0 H (1.3-7.7) k/uL Lymphocytes # 0.5 L (1.0-4.8) k/uL Sodium (137-145) mmol/L BUN (9-20) mg/dL Creatinine (0.66-1.25) mg/dL Glucose (74-99) mg/dL POC Glucose (mg/dL) 242 H (70-110) mg/dL Hemoglobin A1c (<=6.0) %
--- NOTE | 2024-07-25 15:17 | P.PN ---
Subjective Progress Note Date: 07/25/24 This is a 64-year-old male patient with chronic and ongoing tobacco dependence, atrial fibrillation, diabetes mellitus, hypertension, hyperlipidemia who has a 1 week history of increasing shortness of breath, cough congestion fever and chills. He came into the emergency room last evening with severe shortness of breath requiring BiPAP support which was 14/5 and 50% FiO2. Chest x-ray revealed cardiomegaly and airspace disease most notably in the left mid lower lung zone suggestive of multifocal pneumonia and possible fluid volume overload. White count 10.5. Hemoglobin 14.3. Platelets 156. Sodium 135. Potassium 4.3. Bicarb 27. BUN 29. Creatinine 1.86. Glucose 174. Troponins 0.327, 0.550, 0.5-2. He is initiated on a heparin drip. proBNP was 13,000. Procalcitonin 2.38. He did test positive for influenza A. Initiated on Tamiflu. Initiated on ceftriaxone. He is seen today in consultation in the emergency department. He is currently sitting up on the stretcher. Awake and alert. He is on 6 L high flow nasal cannula. He is breathing a bit easier today compared to yesterday. Still with a loose nonproductive cough. He did have a Tmax of 102.3. Current temperature 99.1. He is hemodynamically stable. The patient is seen today July 21, 2024 in follow-up on the regular medical floor. He is awake and alert in no acute distress. Doing slightly better today compared to yesterday. He is still requiring 10 L high flow nasal cannula. Chest x-ray continues to show evidence of fluid volume overload/CHF. Echocardiogram reveals mildly impaired left ventricular systolic function with ejection fraction of 45 to 50%. Moderately reduced global LV function. Blood culture is pending. White count 7.2. Hemoglobin 14.1. Platelets 168. Sodium 133. Potassium 4.2. Bicarb 27. BUN 44. Creatinine 2.12. Stool for occult blood was negative. Since. Anticoagulated with Eliquis. Antibiotics in the form of ceftriaxone and azithromycin. He is continued on Tamiflu. Lasix discontinued per cardiology. The patient is seen today July 22, 2024 in follow-up on the regular medical floor. He is currently on BiPAP 14/5 and 80% FiO2. He was trialed on 12 L high flow earlier this morning with O2 saturations in the 70s and 80s. Arterial blood gases on the 80% FiO2 revealed a PaO2 of 74, pCO2 of 38 and a pH of 7.42. A chest x-ray revealed similar findings of persistent cardiomegaly with bilateral multifocal acute infiltrates and/or edema. He received Lasix 40 mg IVP x 1. Blood culture reveals no growth to date. White count 8.7. Hemoglobin 12.8. Platelets 139. Sodium 128. Potassium 3.6. Bicarb 29. BUN 45. Creatinine 1.99. He is continued on DuoNeb inhalations. Continued on Tamiflu. Initiated on Solu-Cortef. Remains on antibiotics in the form of ceftriaxone and azithromycin. Anticoagulated with Eliquis. Currently on a 1500 mL fluid restriction. Nephrology is following. SAGAR inhibitor remains on hold. The patient is seen today July 23, 2024 in follow-up on the regular medical floor. He is currently sitting up in bed. Still requiring BiPAP support currently 14/5 and 60% FiO2. He remains on DuoNeb and elations, Solu-Cortef, Tamiflu. Anticoagulated with Eliquis. Antibiotics in the form of ceftriaxone. Blood culture reveals no growth. White count 7.6. Hemoglobin 13.3. Platelets 167. Sodium 133. Potassium 3.9. Bicarb 28. BUN 47. Creatinine 1.54. Glucose 132. Chest x-ray continues to show worsening bilateral diffuse acute infiltrates and/or edema. Developing ARDS is not excluded. He is given Lasix 40 mg IVP today. Currently in a negative balance. The patient is seen today July 24, 2024 in follow-up on the regular medical floor. Resting in bed. Currently afebrile. Hemodynamically stable. He contin ues to require BiPAP support 10/5 and 50% FiO2. He has been tolerating some time off on 15 L high flow nasal cannula with O2 saturations in the upper 80s. Blood culture revealed no growth. White count 6.7. Hemoglobin 13.6. Platelets 185. Sodium 133. Potassium 4.0. Bicarb 26. BUN 54. Creatinine 1.44. Glucose 178. He is continued on DuoNeb inhalations, Pulmicort and Perforomist inhalations, Solu-Medrol. Anticoagulated with Eliquis. Continued on Tamiflu. Completed a course of ceftriaxone. Received Lasix 40 mg IVP x 1 again today. Remains in a negative balance. X-ray continues to show bilateral diffuse acute infiltrates and/or edema. ARDS is not excluded. No significant change. The patient is seen today July 25, 2024 in follow-up on the selective care unit. He is awake and alert in no acute distress. He is sitting up in bed. He is currently on 15 L high flow nasal cannula. He has been off the BiPAP since earlier this morning which was set at 14/5 and 50% FiO2. He has been slow to progress. He did receive Lasix 40 mg IVP x 1 again today. Blood culture revealed no growth. White count 12.5. Hemoglobin 12.8. Platelets 219. Sodium 132. Potassium 3.9. Bicarb 27. BUN 58. Creatinine 1.40. Glucose 236. He remains on DuoNeb inhalations, Pulmicort and performance and elations, IV Solu- Medrol. He is anticoagulated with Eliquis. Remains on antibiotics in the form of ceftriaxone. Chest x-ray continues to show similar diffuse patchy airspace opacities throughout the lungs likely acute infiltrates and/or edema. Developing ARDS is not excluded. Objective - Vital Signs Vital signs: Vital Signs Temp 97.7 F 07/25/24 12:00 Pulse 77 07/25/24 14:00 Resp 26 H 07/25/24 14:00 BP 175/78 07/25/24 12:00 Pulse Ox 91 L 07/25/24 12:00 FiO2 50 07/25/24 07:45 Intake & Output 07/24/24 07/25/24 07/25/24 18:59 06:59 18:59 Intake Total 354 580 Output Total 700 1150 Balance 354 700 -570 Intake: Intake, IV Titration 100 Amount cefTRIAXone 2 gm In 100 Sodium Chloride 0.9% 50 ml @ 100 mls/hr IVPB Q24HR [facility] Rx#:[id number] Oral 354 480 Output: Urine 700 1150 Other: Voiding Method Bedside Commode Bedside Commode Bedside Commode Urinal Urinal Urinal - Exam GENERAL EXAM: Alert, 64-year-old male, sitting up in bed, on 15 L high flow nasal cannula, fairly comfortable in no apparent distress. HEAD: Normocephalic. EYES: Normal reaction of pupils, equal size. NOSE: Clear with pink turbinates. THROAT: No erythema or exudates. NECK: No masses, no JVD. CHEST: No chest wall deformity. LUNGS: Equal air entry with crackles in the bilateral bases, few scattered rhonchi, diminished. CVS: S1 and S2 normal with no audible murmur, regular rhythm. ABDOMEN: No hepatosplenomegaly, normal bowel sounds, no guarding or rigidity. SPINE: No scoliosis or deformity SKIN: No rashes CENTRAL NERVOUS SYSTEM: No focal deficits, tone is normal in all 4 extremities. EXTREMITIES: There is 1+ peripheral edema. No clubbing, no cyanosis. Peripheral pulses are intact. - Labs CBC & Chem 7: 07/25/24 06:12 07/25/24 06:12 Labs: Abnormal Lab Results - Last 24 Hours (Table) 07/24/24 07/24/24 07/25/24 Range/Units 16:24 20:30 06:12 WBC 12.5 H (3.8-10.6) k/uL RBC 4.21 L (4.30-5.90) m/uL Hgb 12.8 L (13.0-17.5) gm/dL Neutrophils # 11.0 H (1.3-7.7) k/uL Lymphocytes # 0.5 L (1.0-4.8) k/uL Sodium (137-145) mmol/L Chloride (98-107) mmol/L BUN (9-20) mg/dL Creatinine (0.66-1.25) mg/dL Glucose (74-99) mg/dL POC Glucose (mg/dL) 380 H 316 H (70-110) mg/dL 07/25/24 07/25/24 07/25/24 Range/Units 06:12 06:26 11:37 WBC (3.8-10.6) k/uL RBC (4.30-5.90) m/uL Hgb (13.0-17.5) gm/dL Neutrophils # (1.3-7.7) k/uL Lymphocytes # (1.0-4.8) k/uL Sodium 132 L (137-145) mmol/L Chloride 97 L (98-107) mmol/L BUN 58 H (9-20) mg/dL Creatinine 1.40 H (0.66-1.25) mg/dL Glucose 236 H (74-99) mg/dL POC Glucose (mg/dL) 242 H 444 H (70-110) mg/dL Microbiology - Last 24 Hours (Table) 07/20/24 00:46 Blood Culture - Final Blood Assessment and Plan Assessment: Acute hypoxemic respiratory failure secondary to an acute exacerbation of chronic obstructive pulmonary disease complicated by influenza A and underlying pneumonia. Procalcitonin 2.38. Acute influenza A infection Acute exacerbation of chronic systolic congestive heart failure with an ejection fraction now 45-50% Troponin leak possible non-ST segment elevation myocardial infarction secondary to above Acute kidney injury History of atrial fibrillation with previous cardioversion maintained on amiodarone and Eliquis Chronic tobacco dependence with suspected underlying COPD Hypertension Hyperlipidemia Diabetes mellitus, type II Plan: The patient was seen and evaluated Chest x-ray, labs and medications reviewed Currently on 15 L high flow nasal cannula Continue BiPAP support as needed Continue to titrate down the FiO2 as tolerated Lasix 40 mg IVP x 1 again today Continue ceftriaxone Continue DuoNeb inhalations, Symbicort Continue Pulmicort and Perforomist inhalations Continue Solu-Medrol Continue Tamiflu Anticoagulated with Eliquis Condition remains guarded We will continue to follow I have personally seen and examined the patient, performed the documentation and the assessment and plan as written. Number of minutes spent on the visit: 10 Dictation was produced using [employer] dictation software. Please excuse any grammatical, word or spelling errors.
[2024-07-25 16:21] LABS: Glucose,Whole Blood 400 mg/dL (70-110)
[2024-07-25 19:57] LABS: Glucose,Whole Blood 260 mg/dL (70-110)
[2024-07-25] MEDS: INSULIN GLARGINE (LANTUS) 100 UNIT/ML SYR SQ SCH (20:49)
[2024-07-26 05:55] LABS: Glucose,Whole Blood 246 mg/dL (70-110)
--- NOTE | 2024-07-26 07:16 | XR ---
EXAMINATION TYPE: XR chest 1V portable DATE OF EXAM: 07/26/2024 4:32 AM COMPARISON: Multiple radiographs, with the most recent on 07/25/2024 TECHNIQUE: XR chest 1V portable Portable AP radiograph of the chest. CLINICAL INDICATION:Male, 64 years old with history of SOB; FINDINGS: Lungs/Pleura: No sizable pleural effusion or pneumothorax. Similar diffuse patchy airspace opacities throughout both lungs. Heart/mediastinum: Cardiomediastinal silhouette is enlarged and stable. Atherosclerotic calcificatio ns are seen in the aorta. Musculoskeletal: No acute osseous pathology. IMPRESSION: Similar diffuse patchy airspace opacities throughout the lungs likely presenting acute infiltrates ve rsus edema versus ARDS. [facility], , 07/26/2024 7:13 AM
[2024-07-26 08:43] LABS: African American GFR (CKD) 65 (>60 ml/min/1.73 sqM); Anion Gap 9 mmol/L; Blood Urea Nitrogen 53 mg/dL (9-20); Calcium 8.6 mg/dL (8.4-10.2); Carbon Dioxide 27 mmol/L (22-30); Chloride 97 mmol/L (98-107); Glucose 238 mg/dL (74-99); Non-African American GFR(CKD) 57 (>60 ml/min/1.73 sqM); Potassium 3.9 mmol/L (3.5-5.1); Sodium 133 mmol/L (137-145)
[2024-07-26 09:04] LABS: Basophils % (A) 0 %; Eosinophils % (A) 0 %; HCT 39.9 % (39.0-53.0); HGB 12.7 gm/dL (13.0-17.5); Lymphocytes # (A) 0.3 k/uL (1.0-4.8); Lymphocytes % (A) 2 %; MCH 30.2 pg (25.0-35.0); MCHC 31.9 g/dL (31.0-37.0); MCV 94.6 fL (80.0-100.0); Mean Platelet Volume 10.9; Monocytes # (A) 0.7 k/uL (0-1.0); Monocytes % (A) 5 %; Neutrophils # (A) 13.3 k/uL (1.3-7.7); Neutrophils % (A) 92 %; Platelet Count 242 k/uL (150-450); RBC 4.22 m/uL (4.30-5.90); WBC 14.4 k/uL (3.8-10.6)
--- NOTE | 2024-07-26 10:20 | P.PN ---
Subjective Patient seen for follow-up for DARI and hyponatremia. Renal function and sodium level stable. On nasal cannula. No active complaints. Oral intake fair. Vital signs are stable. General: No acute distress. HEENT: Head exam is unremarkable. LUNGS: No audible rhonchi or wheezes. HEART: Rate and Rhythm are regular. ABDOMEN: Nontender. EXTREMITITES: No edema. Objective - Vital Signs Vital signs: Vital Signs Temp 97.4 F L 07/26/24 08:00 Pulse 70 07/26/24 08:12 Resp 22 07/26/24 08:00 BP 166/72 07/26/24 08:00 Pulse Ox 98 07/26/24 08:00 FiO2 50 07/26/24 07:50 Intake & Output 07/25/24 07/26/24 07/26/24 18:59 06:59 18:59 Intake Total 1120 300 Output Total 1150 500 Balance -30 -500 300 Weight 76 kg Intake: Intake, IV Titration 100 Amount cefTRIAXone 2 gm In 100 Sodium Chloride 0.9% 50 ml @ 100 mls/hr IVPB Q24HR [facility] Rx#:[id number] Oral 1020 300 Output: Urine 1150 500 Other: Voiding Method Bedside Commode Bedside Commode Urinal Urinal - Labs CBC & Chem 7: 07/26/24 07:14 07/26/24 07:14 Labs: Abnormal Lab Results - Last 24 Hours (Table) 07/25/24 07/25/24 07/25/24 Range/Units 11:37 16:18 19:55 WBC (3.8-10.6) k/uL RBC (4.30-5.90) m/uL Hgb (13.0-17.5) gm/dL Neutrophils # (1.3-7.7) k/uL Lymphocytes # (1.0-4.8) k/uL Sodium (137-145) mmol/L Chloride (98-107) mmol/L BUN (9-20) mg/dL Creatinine (0.66-1.25) mg/dL Glucose (74-99) mg/dL POC Glucose (mg/dL) 444 H 400 H 260 H (70-110) mg/dL 07/26/24 07/26/24 07/26/24 Range/Units 05:54 07:14 07:14 WBC 14.4 H (3.8-10.6) k/uL RBC 4.22 L (4.30-5.90) m/uL Hgb 12.7 L (13.0-17.5) gm/dL Neutrophils # 13.3 H (1.3-7.7) k/uL Lymphocytes # 0.3 L (1.0-4.8) k/uL Sodium 133 L (137-145) mmol/L Chloride 97 L (98-107) mmol/L BUN 53 H (9-20) mg/dL Creatinine 1.31 H (0.66-1.25) mg/dL Glucose 238 H (74-99) mg/dL POC Glucose (mg/dL) 246 H (70-110) mg/dL Microbiology - Last 24 Hours (Table) 07/20/24 00:46 Blood Culture - Final Blood Assessment and Plan Assessment: #DARI secondary to ATN secondary to CRS; Renal function improving. #CKD stage 3a, baseline creatinine 1.6-1.7. #Hyponatremia secondary to hypervolemia and acute respiratory infection, stable. #Sepsis secondary to influenza type a pneumonia, s/p Tamiflu #Acute hypoxic respiratory failure secondary to above #HFrEF w/EF 45 to 50% #Type II NSTEMI Plan: -Continue with diuresis, 40 mg IV Lasix once daily. -Recheck labs in a.m. -Maintain fluid restriction 1500 cc -Bladder scan showed <300 cc, Ortiz was not inserted -Avoid nephrotoxic agents
[2024-07-26 11:38] LABS: Glucose,Whole Blood 315 mg/dL (70-110)
[2024-07-26] MEDS: FUROSEMIDE 10 MG/ML 4 ML VIAL IV SCH (11:54)
--- NOTE | 2024-07-26 12:58 | P.PN ---
Subjective Progress Note Date: 07/26/24 Subjective: Patient seen and examined at bedside. No acute events overnight. Respiratory function similar to yesterday Pertinent positives and negatives as discussed above, a complete review of systems was performed and all other systems are negative. Vitals Signs Reviewed. General: Nontoxic, no distress, appears at stated age, chronically ill-appearing Derm: Warm, dry Head: Atraumatic, normocephalic, symmetric Eyes: EOMI, no lid lag, anicteric sclera Mouth: No lip lesion, mucus membranes moist Cardiovascular: S1S2 reg, no murmur Lungs: Bilateral Rales, no accessory muscle use, supplemental oxygen Abdominal: Soft, nontender to palpation, no guarding, no appreciable organomegaly Ext: No gross muscle atrophy, no edema, no contractures Neuro: CN II-XI grossly intact, no focal neuro deficits Psych: Alert, oriented, appropriate affect Data Reviewed Today: Pertinent Labs: WBC 14.4, sodium 133, creatinine 1.31, blood sugars range between 2 38-3 15 Imaging: [Chest x-ray independently interpreted from this morning, shows persistent bilateral interstitial opacities Assessment and Plan: Active: Acute hypoxic respiratory failure Sepsis secondary influenza pneumonia Severe ARDS Acute COPD exacerbation NSTEMI type II Heart failure with reduced ejection fraction 45 to 50%,in mild exacerbation DARI on CKD, likely cardiorenal Mild hyponatremia -Continue Solu-Medrol 60 IV every 6 hours, DuoNebs 4 times daily, every 4 hours as needed, Pulmicort twice daily -Continue ceftriaxone 2 g IV every 24 hours, status post azithromycin -Status post Tamiflu -Nephrology note reviewed, on scheduled Lasix 40 IV daily, monitor I's and O's, monitor electrolytes -Wean oxygen, BiPAP if needed -Pulmonology and cardiology following -Continue telemetry monitoring -Aspirin 81 mg, atorvastatin 40 mg nightly Type 2 diabetes Uncontrolled hyperglycemia Increase Lantus to 30 units nightly, lispro to 10 units ACHS, continue sliding scale insulin, monitor for hypoglycemia Resolved: Lactic acidosis Chronic: Paroxysmal A-fib Hypertension-holding lisinopril Dyslipidemia DVT ppx: Eliquis Code status: Full code Anticipated discharge place: Pending clinical course Anticipated discharge time: Pending clinical course Objective - Vital Signs Vital signs: Vital Signs Temp 97.4 F L 07/26/24 11:59 Pulse 70 07/26/24 12:26 Resp 16 07/26/24 11:59 BP 166/75 07/26/24 11:59 Pulse Ox 97 07/26/24 11:59 FiO2 50 07/26/24 07:50 Intake & Output 07/25/24 07/26/24 07/26/24 18:59 06:59 18:59 Intake Total 1120 300 Output Total 1150 500 Balance -30 -500 300 Weight 76 kg Intake: Intake, IV Titration 100 Amount cefTRIAXone 2 gm In 100 Sodium Chloride 0.9% 50 ml @ 100 mls/hr IVPB Q24HR [facility] Rx#:[id number] Oral 1020 300 Output: Urine 1150 500 Other: Voiding Method Bedside Commode Bedside Commode Bedside Commode Urinal Urinal Urinal - Labs CBC & Chem 7: 07/26/24 07:14 07/26/24 07:14 Labs: Abnormal Lab Results - Last 24 Hours (Table) 07/25/24 07/25/24 07/26/24 Range/Units 16:18 19:55 05:54 WBC (3.8-10.6) k/uL RBC (4.30-5.90) m/uL Hgb (13.0-17.5) gm/dL Neutrophils # (1.3-7.7) k/uL Lymphocytes # (1.0-4.8) k/uL Sodium (137-145) mmol/L Chloride (98-107) mmol/L BUN (9-20) mg/dL Creatinine (0.66-1.25) mg/dL Glucose (74-99) mg/dL POC Glucose (mg/dL) 400 H 260 H 246 H (70-110) mg/dL 07/26/24 07/26/24 07/26/24 Range/Units 07:14 07:14 11:36 WBC 14.4 H (3.8-10.6) k/uL RBC 4.22 L (4.30-5.90) m/uL Hgb 12.7 L (13.0-17.5) gm/dL Neutrophils # 13.3 H (1.3-7.7) k/uL Lymphocytes # 0.3 L (1.0-4.8) k/uL Sodium 133 L (137-145) mmol/L Chloride 97 L (98-107) mmol/L BUN 53 H (9-20) mg/dL Creatinine 1.31 H (0.66-1.25) mg/dL Glucose 238 H (74-99) mg/dL POC Glucose (mg/dL) 315 H (70-110) mg/dL Microbiology - Last 24 Hours (Table) 07/20/24 00:46 Blood Culture - Final Blood
--- NOTE | 2024-07-26 13:33 | P.PN ---
Subjective Progress Note Date: 07/26/24 This is a 64-year-old male patient with chronic and ongoing tobacco dependence, atrial fibrillation, diabetes mellitus, hypertension, hyperlipidemia who has a 1 week history of increasing shortness of breath, cough congestion fever and chills. He came into the emergency room last evening with severe shortness of breath requiring BiPAP support which was 14/5 and 50% FiO2. Chest x-ray revealed cardiomegaly and airspace disease most notably in the left mid lower lung zone suggestive of multifocal pneumonia and possible fluid volume overload. White count 10.5. Hemoglobin 14.3. Platelets 156. Sodium 135. Potassium 4.3. Bicarb 27. BUN 29. Creatinine 1.86. Glucose 174. Troponins 0.327, 0.550, 0.5-2. He is initiated on a heparin drip. proBNP was 13,000. Procalcitonin 2.38. He did test positive for influenza A. Initiated on Tamiflu. Initiated on ceftriaxone. He is seen today in consultation in the emergency department. He is currently sitting up on the stretcher. Awake and alert. He is on 6 L high flow nasal cannula. He is breathing a bit easier today compared to yesterday. Still with a loose nonproductive cough. He did have a Tmax of 102.3. Current temperature 99.1. He is hemodynamically stable. The patient is seen today July 21, 2024 in follow-up on the regular medical floor. He is awake and alert in no acute distress. Doing slightly better today compared to yesterday. He is still requiring 10 L high flow nasal cannula. Chest x-ray continues to show evidence of fluid volume overload/CHF. Echocardiogram reveals mildly impaired left ventricular systolic function with ejection fraction of 45 to 50%. Moderately reduced global LV function. Blood culture is pending. White count 7.2. Hemoglobin 14.1. Platelets 168. Sodium 133. Potassium 4.2. Bicarb 27. BUN 44. Creatinine 2.12. Stool for occult blood was negative. Since. Anticoagulated with Eliquis. Antibiotics in the form of ceftriaxone and azithromycin. He is continued on Tamiflu. Lasix discontinued per cardiology. The patient is seen today July 22, 2024 in follow-up on the regular medical floor. He is currently on BiPAP 14/5 and 80% FiO2. He was trialed on 12 L high flow earlier this morning with O2 saturations in the 70s and 80s. Arterial blood gases on the 80% FiO2 revealed a PaO2 of 74, pCO2 of 38 and a pH of 7.42. A chest x-ray revealed similar findings of persistent cardiomegaly with bilateral multifocal acute infiltrates and/or edema. He received Lasix 40 mg IVP x 1. Blood culture reveals no growth to date. White count 8.7. Hemoglobin 12.8. Platelets 139. Sodium 128. Potassium 3.6. Bicarb 29. BUN 45. Creatinine 1.99. He is continued on DuoNeb inhalations. Continued on Tamiflu. Initiated on Solu-Cortef. Remains on antibiotics in the form of ceftriaxone and azithromycin. Anticoagulated with Eliquis. Currently on a 1500 mL fluid restriction. Nephrology is following. SAGAR inhibitor remains on hold. The patient is seen today July 23, 2024 in follow-up on the regular medical floor. He is currently sitting up in bed. Still requiring BiPAP support currently 14/5 and 60% FiO2. He remains on DuoNeb and elations, Solu-Cortef, Tamiflu. Anticoagulated with Eliquis. Antibiotics in the form of ceftriaxone. Blood culture reveals no growth. White count 7.6. Hemoglobin 13.3. Platelets 167. Sodium 133. Potassium 3.9. Bicarb 28. BUN 47. Creatinine 1.54. Glucose 132. Chest x-ray continues to show worsening bilateral diffuse acute infiltrates and/or edema. Developing ARDS is not excluded. He is given Lasix 40 mg IVP today. Currently in a negative balance. The patient is seen today July 24, 2024 in follow-up on the regular medical floor. Resting in bed. Currently afebrile. Hemodynamically stable. He contin ues to require BiPAP support 10/5 and 50% FiO2. He has been tolerating some time off on 15 L high flow nasal cannula with O2 saturations in the upper 80s. Blood culture revealed no growth. White count 6.7. Hemoglobin 13.6. Platelets 185. Sodium 133. Potassium 4.0. Bicarb 26. BUN 54. Creatinine 1.44. Glucose 178. He is continued on DuoNeb inhalations, Pulmicort and Perforomist inhalations, Solu-Medrol. Anticoagulated with Eliquis. Continued on Tamiflu. Completed a course of ceftriaxone. Received Lasix 40 mg IVP x 1 again today. Remains in a negative balance. X-ray continues to show bilateral diffuse acute infiltrates and/or edema. ARDS is not excluded. No significant change. The patient is seen today July 25, 2024 in follow-up on the selective care unit. He is awake and alert in no acute distress. He is sitting up in bed. He is currently on 15 L high flow nasal cannula. He has been off the BiPAP since earlier this morning which was set at 14/5 and 50% FiO2. He has been slow to progress. He did receive Lasix 40 mg IVP x 1 again today. Blood culture revealed no growth. White count 12.5. Hemoglobin 12.8. Platelets 219. Sodium 132. Potassium 3.9. Bicarb 27. BUN 58. Creatinine 1.40. Glucose 236. He remains on DuoNeb inhalations, Pulmicort and performance and elations, IV Solu- Medrol. He is anticoagulated with Eliquis. Remains on antibiotics in the form of ceftriaxone. Chest x-ray continues to show similar diffuse patchy airspace opacities throughout the lungs likely acute infiltrates and/or edema. Developing ARDS is not excluded. The patient is seen today July 26, 2024 in follow-up on the selective care unit. He is awake and alert in no acute distress. Sitting up in bed. Maintaining O2 saturations in the 90s on 12 L high flow nasal cannula. He did wear BiPAP last night 14/5 and 50% FiO2. He has been slow to progress but is feeling better today compared to yesterday. Chest x-ray shows similar diffuse patchy airspace opacities representing acute infiltrates versus edema versus ARDS. Remains on IV diuretics. Currently in a negative balance. White count 14.4. Hemoglobin 12.7. Platelets 242. Sodium 133. Potassium 3.9. Bicarb 27. BUN 53. Creatinine 1.31. Glucose 238. He remains on DuoNeb inhalations, Pulmicort and Perforomist inhalations, IV Solu-Medrol. He is anticoagulated with Eliquis. Remains on ceftriaxone. Objective - Vital Signs Vital signs: Vital Signs Temp 97.4 F L 07/26/24 11:59 Pulse 70 07/26/24 12:26 Resp 16 07/26/24 11:59 BP 166/75 07/26/24 11:59 Pulse Ox 97 07/26/24 11:59 FiO2 50 07/26/24 07:50 Intake & Output 07/25/24 07/26/24 07/26/24 18:59 06:59 18:59 Intake Total 1120 300 Output Total 1150 500 Balance -30 -500 300 Weight 76 kg Intake: Intake, IV Titration 100 Amount cefTRIAXone 2 gm In 100 Sodium Chloride 0.9% 50 ml @ 100 mls/hr IVPB Q24HR [facility] Rx#:[id number] Oral 1020 300 Output: Urine 1150 500 Other: Voiding Method Bedside Commode Bedside Commode Bedside Commode Urinal Urinal Urinal - Exam GENERAL EXAM: Alert, 64-year-old male, on 12 L high flow nasal cannula, fairly comfortable in no apparent distress. HEAD: Normocephalic. EYES: Normal reaction of pupils, equal size. NOSE: Clear with pink turbinates. THROAT: No erythema or exudates. NECK: No masses, no JVD. CHEST: No chest wall deformity. LUNGS: Equal air entry with crackles in the bilateral bases, few scattered rhonchi, diminished. CVS: S1 and S2 normal with no audible murmur, regular rhythm. ABDOMEN: No hepatosplenomegaly, normal bowel sounds, no guarding or rigidity. SPINE: No scoliosis or deformity SKIN: No rashes CENTRAL NERVOUS SYSTEM: No focal deficits, tone is normal in all 4 extremities. EXTREMITIES: There is 1+ peripheral edema. No clubbing, no cyanosis. Peripheral pulses are intact. - Labs CBC & Chem 7: 07/26/24 07:14 07/26/24 07:14 Labs: Abnormal Lab Results - Last 24 Hours (Table) 07/25/24 07/25/24 07/26/24 Range/Units 16:18 19:55 05:54 WBC (3.8-10.6) k/uL RBC (4.30-5.90) m/uL Hgb (13.0-17.5) gm/dL Neutrophils # (1.3-7.7) k/uL Lymphocytes # (1.0-4.8) k/uL Sodium (137-145) mmol/L Chloride (98-107) mmol/L BUN (9-20) mg/dL Creatinine (0.66-1.25) mg/dL Glucose (74-99) mg/dL POC Glucose (mg/dL) 400 H 260 H 246 H (70-110) mg/dL 07/26/24 07/26/24 07/26/24 Range/Units 07:14 07:14 11:36 WBC 14.4 H (3.8-10.6) k/uL RBC 4.22 L (4.30-5.90) m/uL Hgb 12.7 L (13.0-17.5) gm/dL Neutrophils # 13.3 H (1.3-7.7) k/uL Lymphocytes # 0.3 L (1.0-4.8) k/uL Sodium 133 L (137-145) mmol/L Chloride 97 L (98-107) mmol/L BUN 53 H (9-20) mg/dL Creatinine 1.31 H (0.66-1.25) mg/dL Glucose 238 H (74-99) mg/dL POC Glucose (mg/dL) 315 H (70-110) mg/dL Microbiology - Last 24 Hours (Table) 07/20/24 00:46 Blood Culture - Final Blood Assessment and Plan Assessment: Acute hypoxemic respiratory failure secondary to an acute exacerbation of chronic obstructive pulmonary disease complicated by influenza A and underlying pneumonia. Procalcitonin 2.38. Acute influenza A infection Acute exacerbation of chronic systolic congestive heart failure with an ejection fraction now 45-50% Troponin leak possible non-ST segment elevation myocardial infarction secondary to above Acute kidney injury History of atrial fibrillation with previous cardioversion maintained on amioda cirilo and Eliquis Chronic tobacco dependence with suspected underlying COPD Hypertension Hyperlipidemia Diabetes mellitus, type II Plan: The patient was seen and evaluated Chest x-ray, labs and medications reviewed Currently on 12 L high flow nasal cannula Continue BiPAP support as needed Continue to titrate down the FiO2 as tolerated Lasix 40 mg IVP daily Continue ceftriaxone Continue bronchodilators Continue Solu-Medrol Continue Tamiflu Anticoagulated with Eliquis Condition remains guarded Increase his activity as tolerated I have personally seen and examined the patient, performed the documentation and the assessment and plan as written. Number of minutes spent on the visit: 10 Dictation was produced using [email or web address] software. Please excuse any grammatical, word or spelling errors.
[2024-07-26 16:47] LABS: Glucose,Whole Blood 304 mg/dL (70-110)
[2024-07-26] MEDS: INSULIN LISPRO (HumaLOG) 100 UNIT/ML 10 mL VL SQ SCH (17:07)
[2024-07-26 20:14] LABS: Glucose,Whole Blood 231 mg/dL (70-110)
[2024-07-26] MEDS: INSULIN GLARGINE (LANTUS) 100 UNIT/ML SYR SQ SCH (20:42)
[2024-07-27 06:10] LABS: Glucose,Whole Blood 207 mg/dL (70-110)
[2024-07-27 07:25] LABS: Basophils % (A) 0 %; Eosinophils % (A) 0 %; HGB 12.7 gm/dL (13.0-17.5); Lymphocytes # (A) 0.4 k/uL (1.0-4.8); Lymphocytes % (A) 2 %; MCHC 31.7 g/dL (31.0-37.0); MCV 94.5 fL (80.0-100.0); Mean Platelet Volume 9.5; Monocytes # (A) 0.9 k/uL (0-1.0); Monocytes % (A) 5 %; Neutrophils # (A) 15.2 k/uL (1.3-7.7); Neutrophils % (A) 91 %; Platelet Count 310 k/uL (150-450); RBC 4.23 m/uL (4.30-5.90); RDW 12.7 % (11.5-15.5); WBC 16.7 k/uL (3.8-10.6)
--- NOTE | 2024-07-27 07:35 | XR ---
EXAMINATION TYPE: XR chest 1V portable DATE OF EXAM: 07/27/2024 7:23 AM COMPARISON: 07/26/2024 CLINICAL INDICATION: Male, 64 years old with history of ARDS, TECHNIQUE: XR chest 1V portable views of the chest are obtained. FINDINGS: Demonstrated are scattered senescent parenchymal change. Diffuse patchy airspace disease throughout both lung rapp is unchanged. Correlate for pneumonia td raheem acute pulmonary edema versus ARDS. The heart is stable. Hilar and mediastinal structures are within normal limits. Degenerative changes are seen of the dorsal spine. IMPRESSION: 1. Stable chest. [facility], , 07/27/2024 7:32 AM
[2024-07-27 07:45] LABS: African American GFR (CKD) 66 (>60 ml/min/1.73 sqM); Anion Gap 5 mmol/L; Blood Urea Nitrogen 58 mg/dL (9-20); Calcium 8.8 mg/dL (8.4-10.2); Carbon Dioxide 30 mmol/L (22-30); Chloride 98 mmol/L (98-107); Glucose 186 mg/dL (74-99); Non-African American GFR(CKD) 57 (>60 ml/min/1.73 sqM); Potassium 3.8 mmol/L (3.5-5.1); Sodium 133 mmol/L (137-145)
[2024-07-27] MEDS: INSULIN LISPRO (HumaLOG) 100 UNIT/ML 10 mL VL SQ SCH (08:16)
--- NOTE | 2024-07-27 10:41 | P.PN ---
Subjective Progress Note Date: 07/27/24 Patient is a 64-year-old male with a PMH of A-fib on Eliquis, COPD not on home oxygen, type II DM, hypertension, hyperlipidemia, CKD stage IIIa who presents to the emergency room with complaints of shortness of breath and cough. Patient reports that over the past 1 week he has been experiencing gradually worsening persistent cough. Reports that the cough is nonproductive. He also reports exertional dyspnea. Denies experiencing fever or chills. Also denies chest discomfort, nausea, vomiting, abdominal pain, diarrhea. Chest x-ray in the emergency room revealed cardiomegaly along with findings of multifocal pneumonia. EKG revealed sinus rhythm at 93 bpm with intraventricular conduction delay as reviewed by me. Laboratory evaluation did reveal influenza type a positive, troponin 0.102, proBNP 12,900, lactic acid 3.3, glucose 228, BUN 25, creatinine 1.59, and WBC count 12.7 with neutrophilic predominance. Patient was reportedly severely hypoxic and in respiratory distress upon EMS arrival at the scene and was started on BiPAP. 07/21/2024 patient seen and examined at bedside. No acute events overnight. No new complaints. WBC 7.2, hemoglobin 14.1, platelet count 1 68,000, PT 12.1, INR 1.1, PTT 103.7, sodium 133, potassium 4.2, chloride 96, bicarb 27, BUN 44, creatinine 2.12, glucose 97. Troponin increased to 0.55 and has flattened. Chest x-ray done showed findings favor CHF exacerbation/fluid overload state. Areas of underlying acute infiltrate cannot be excluded. No significant change from most recent x-ray. 07/22/24 patient seen and examined at bedside. no new complaints. Currently comfortable on BiPAP. Labs today showed WBC 8.7, hemoglobin 12.8, MCV 93.7, platelet count 1 39,000, sodium 128, potassium 3.6, chloride 94, BUN 44, creatinine 1.99, calcium 7.8, glucose 113. ABG showed pH of 7.42, pCO2 38, pO2 74. Urinalysis showed +1 protein, moderate ketones, rare bacteria, 9 hyaline casts and rare mucus, negative nitrites, negative leukocyte esterase. Renal u ltrasound done on 07/21 showed negative for hydronephrosis, stones, bladder anechoic patient seen and examined at bedside. Given Ativan IV for anxiety overnight. No acute events. Still required BiPAP overnight. WBC 7.6, hemoglobin 13.9, platelet count 1 67,000, sodium 133, chloride 97, BUN 47, creatinine 1.54, glucose 132, calcium 8.5. Legionella Ag negative. Chest x-ray today showed continued worsening of bilateral diffuse acute infiltrates and/or edema, developing ARDS not included. 07/24/24 patient seen and examined at bedside. Still needed BiPAP overnight. No new complaints. No acute events overnight. Labs today show WBC 6.7, hemoglobin 13.6, platelet count 1 85,000, sodium 133, potassium 4, chloride 98, BUN 54, creatinine 1.44, glucose 178, A1c 6.2, calcium 8.9. Chest x-ray independently interpreted showed continued bilateral diffuse acute infiltrates and/or edema. No significant change from prior x-ray. 07/25/2024 patient seen and examined at bedside. No acute events overnight. No new complaints. Still requiring BiPAP overnight. Labs today showed WBC 12.5, hemoglobin 12.8, MCV 93.3, platelet count 219,000, sodium 132, potassium 3.9, chloride 97, bicarb 27, BUN 58, creatinine 1.4, glucose 236, calcium 9, magnesium 2. Chest x-ray independently interpreted showed similar diffuse patchy airspace opacities throughout the lungs likely representing acute infiltrates and/or edema. 07/26/2024 Patient seen and examined at bedside. No acute events overnight. Res piratory function similar to yesterday 07/27/2024 patient seen and examined at bedside. No acute events overnight. Still requiring BiPAP at night on FiO2 of 50%. Labs today showed WBC 16.7, hemoglobin 12.7, MCV 94.5, platelet count 210,000, sodium 133, potassium 3.8, chloride 98, bicarb 38, BUN 58, creatinine 1.3, glucose 196, calcium 8.8, magnesium 2. Chest x-ray today independently interpreted showed no changes in diffuse patchy airspace opacities throughout the lungs. Review of systems: Pertinent positives and negatives as discussed in HPI, a complete review of systems was performed and all other systems are negative. Pertinent imaging and labs reviewed. Physical examination: Vital signs reviewed General: non toxic, no distress, appears at stated age, ill-appearing, HFNC Derm: no unusual rashes/lesions, warm Head: atraumatic, normocephalic, symmetric Eyes: EOMI, anicteric sclera, pupils equal round reactive to light ENT: Nose and ears atraumatic Neck: No cervical lymphadenopathy, trachea midline, supple Mouth: no lip lesion, mucus membranes moist Cardiovascular: S1S2 reg, no murmur Lungs: decreased breath sounds in all lung rapp, bibasilar coarse rales, no rhonchi, no rales, no accessory muscle use Abdominal: soft, nontender to palpation, no guarding Ext: muscle strength 5 out of 5 in all 4 extremities grossly, no gross muscle atrophy, no contractures, positive dorsalis pedis pulse bilateral, no edema Neuro: CN II-XI grossly intact, no gross focal neuro deficits Psych: Alert and oriented x3, appropriate affect and mood Assessment/Plan: 64-year-old male with history of COPD, A-fib on Eliquis and CKD stage III here for further management of cardiorenal syndrome and sepsis secondary to pneumonia now BiPAP dependent. #. Cardiorenal syndrome #. Heart failure with reduced ejection fraction EF of 45 to 50% (06/2024), not on GDMT #. Hyponatremia secondary to above #. Acute kidney injury on CKD, improving -Lasix 40 mg IV daily y by nephrology -Patient euvolemic today. Continue to monitor volume status. -Strict CHOCO's -Daily weights -Fluid restriction -Monitor BMP for electrolytes and renal function -Cardiology consulted -Metoprolol 25 mg daily. Initiate GDMT on discharge #. Sepsis secondary to influenza pneumonia, unable to rule out bacterial pneumonia #. Acute hypoxic respiratory failure, secondary to above #. Severe ARDS -P/F ratio 92 -Chest x-ray today independently interpreted showed no changes in diffuse patchy airspace opacities throughout the lungs. -Procalcitonin normal at 0.33 -Legionella urine antigen neagtive -Supportive oxygen as needed -Discontinued Rocephin 2 g IVPB, completed course of antibiotics -Finished Tamiflu p.o. on 07/26 -Hydrocortisone 50mg IV every 6 hours discontinued by pulmonology -Solumedrol 60mg IV every 6 hours per pulmonology -Blood culture negative -Monitor CBC #. NSTEMI, type II -EKG revealed sinus rhythm at 93 bpm with intraventricular conduction delay on admission -Patient has no chest pain -Troponins flattened at 0.5 -IV heparin for 48 hours. Now discontinued -Cardiology initiated atorvastatin 40 mg daily #. Lactic acidosis, resovled Chronic conditions: #. A-fib #. COPD #. Type II DM #. Hypertension #. Hyperlipidemia -Lisinopril held due to DARI -Continue Eliquis 5 mg twice daily, amiodarone 200 mg p.o. daily, metoprolol 25 mg daily -Hemoglobin A1c 6.2 -Glargine 42 units units nightly -Initiate lispro 14 units SQ ACHS for meal coverage -Not on home diabetes medications -Glucose Accu-Cheks ACHS -Continue insulin sliding scale ACHS -Monitor for hypoglycemia F: Restrict fluids due to 1.5 liters E: Monitor electrolytes particularly sodium and potassium N: Heart healthy diet A: Can ambulate with assistance DVT prophylaxis: Eliquis 5 mg p.o. daily Gabrielle Song MD PGY-1/Director Of Online Education Dictation was produced using [email or web address] dictation software. please excuse any grammatical, word or spelling errors. I have seen and evaluated the patient today. Discussed with the resident and agree with the residents finding and plan as documented in the resident's note. Changes highlighted in blue font. Objective - Vital Signs Vital signs: Vital Signs Temp 97.9 F 07/27/24 04:00 Pulse 59 L 07/27/24 04:00 Resp 21 07/27/24 04:00 BP 147/66 07/27/24 04:00 Pulse Ox 98 07/27/24 08:30 FiO2 50 07/27/24 04:00 Intake & Output 07/26/24 07/27/24 07/27/24 18:59 06:59 18:59 Intake Total 540 20 Output Total 300 750 Balance 240 -730 Weight 76 kg Intake: IV 20 Invasive Line 3 20 Oral 540 Output: Urine 300 750 Other: Voiding Method Bedside Commode Bedside Commode Urinal Urinal # Voids 1 - Labs CBC & Chem 7: 07/27/24 07:00 07/27/24 07:00 Labs: Abnormal Lab Results - Last 24 Hours (Table) 07/26/24 07/26/24 07/26/24 Range/Units 07:14 07:14 11:36 WBC 14.4 H (3.8-10.6) k/uL RBC 4.22 L (4.30-5.90) m/uL Hgb 12.7 L (13.0-17.5) gm/dL Neutrophils # 13.3 H (1.3-7.7) k/uL Lymphocytes # 0.3 L (1.0-4.8) k/uL Sodium 133 L (137-145) mmol/L Chloride 97 L (98-107) mmol/L BUN 53 H (9-20) mg/dL Creatinine 1.31 H (0.66-1.25) mg/dL Glucose 238 H (74-99) mg/dL POC Glucose (mg/dL) 315 H (70-110) mg/dL 07/26/24 07/26/24 07/27/24 Range/Units 16:45 20:01 05:56 WBC (3.8-10.6) k/uL RBC (4.30-5.90) m/uL Hgb (13.0-17.5) gm/dL Neutrophils # (1.3-7.7) k/uL Lymphocytes # (1.0-4.8) k/uL Sodium (137-145) mmol/L Chloride (98-107) mmol/L BUN (9-20) mg/dL Creatinine (0.66-1.25) mg/dL Glucose (74-99) mg/dL POC Glucose (mg/dL) 304 H 231 H 207 H (70-110) mg/dL 07/27/24 07/27/24 Range/Units 07:00 07:00 WBC 16.7 H (3.8-10.6) k/uL RBC 4.23 L (4.30-5.90) m/uL Hgb 12.7 L (13.0-17.5) gm/dL Neutrophils # 15.2 H (1.3-7.7) k/uL Lymphocytes # 0.4 L (1.0-4.8) k/uL Sodium 133 L (137-145) mmol/L Chloride (98-107) mmol/L BUN 58 H (9-20) mg/dL Creatinine 1.30 H (0.66-1.25) mg/dL Glucose 186 H (74-99) mg/dL POC Glucose (mg/dL) (70-110) mg/dL
--- NOTE | 2024-07-27 11:03 | P.PN ---
Subjective Progress Note Date: 07/27/24 Patient seen for follow-up for DARI and hyponatremia. Renal function and sodium level remained stable. Remains on high flow nasal cannula. Currently 9 L. No active complaints. Oral intake fair. Objective - Vital Signs Vital signs: Vital Signs Temp 97.9 F 07/27/24 04:00 Pulse 70 07/27/24 08:59 Resp 21 07/27/24 04:00 BP 147/66 07/27/24 04:00 Pulse Ox 98 07/27/24 08:30 FiO2 50 07/27/24 04:00 Intake & Output 07/26/24 07/27/24 07/27/24 18:59 06:59 18:59 Intake Total 540 20 240 Output Total 300 750 Balance 240 -730 240 Weight 76 kg Intake: IV 20 Invasive Line 3 20 Oral 540 240 Output: Urine 300 750 Other: Voiding Method Bedside Commode Bedside Commode Urinal Urinal # Voids 1 - Exam Patient is awake, comfortable, no acute distress. 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 - Labs CBC & Chem 7: 07/29/24 08:01 07/29/24 08:01 Labs: Abnormal Lab Results - Last 24 Hours (Table) 07/26/24 07/26/24 07/26/24 Range/Units 11:36 16:45 20:01 WBC (3.8-10.6) k/uL RBC (4.30-5.90) m/uL Hgb (13.0-17.5) gm/dL Neutrophils # (1.3-7.7) k/uL Lymphocytes # (1.0-4.8) k/uL Sodium (137-145) mmol/L BUN (9-20) mg/dL Creatinine (0.66-1.25) mg/dL Glucose (74-99) mg/dL POC Glucose (mg/dL) 315 H 304 H 231 H (70-110) mg/dL 07/27/24 07/27/24 07/27/24 Range/Units 05:56 07:00 07:00 WBC 16.7 H (3.8-10.6) k/uL RBC 4.23 L (4.30-5.90) m/uL Hgb 12.7 L (13.0-17.5) gm/dL Neutrophils # 15.2 H (1.3-7.7) k/uL Lymphocytes # 0.4 L (1.0-4.8) k/uL Sodium 133 L (137-145) mmol/L BUN 58 H (9-20) mg/dL Creatinine 1.30 H (0.66-1.25) mg/dL Glucose 186 H (74-99) mg/dL POC Glucose (mg/dL) 207 H (70-110) mg/dL Assessment and Plan Assessment: # DARI secondary to ATN secondary to cardiorenal syndrome; renal function improving - currently stable. #Stage IIIa chronic kidney disease, baseline creatinine 1.6-1.7 #Hyponatremia secondary to hypervolemia and acute respiratory infection, stable #Sepsis secondary to influenza type a pneumonia, s/p Tamiflu #Acute hypoxic respiratory failure secondary to above #HFrEF w/EF 45 to 50% #Type II NSTEMI Plan: -Continue with diuresis, 40 mg IV Lasix once daily -Recheck labs in a.m. -Maintain fluid restriction 1500 cc -Bladder scan showed <300 cc, Ortiz was not inserted -Avoid nephrotoxic agents Patient is seen and examined. Agree with resident's findings assessment and plan.
[2024-07-27 11:36] LABS: Glucose,Whole Blood 280 mg/dL (70-110)
--- NOTE | 2024-07-27 14:32 | P.PN ---
Subjective Progress Note Date: 07/27/24 This is a 64-year-old male patient with chronic and ongoing tobacco dependence, atrial fibrillation, diabetes mellitus, hypertension, hyperlipidemia who has a 1 week history of increasing shortness of breath, cough congestion fever and chills. He came into the emergency room last evening with severe shortness of breath requiring BiPAP support which was 14/5 and 50% FiO2. Chest x-ray revealed cardiomegaly and airspace disease most notably in the left mid lower lung zone suggestive of multifocal pneumonia and possible fluid volume overload. White count 10.5. Hemoglobin 14.3. Platelets 156. Sodium 135. Potassium 4.3. Bicarb 27. BUN 29. Creatinine 1.86. Glucose 174. Troponins 0.327, 0.550, 0.5-2. He is initiated on a heparin drip. proBNP was 13,000. Procalcitonin 2.38. He did test positive for influenza A. Initiated on Tamiflu. Initiated on ceftriaxone. He is seen today in consultation in the emergency department. He is currently sitting up on the stretcher. Awake and alert. He is on 6 L high flow nasal cannula. He is breathing a bit easier today compared to yesterday. Still with a loose nonproductive cough. He did have a Tmax of 102.3. Current temperature 99.1. He is hemodynamically stable. The patient is seen today July 21, 2024 in follow-up on the regular medical floor. He is awake and alert in no acute distress. Doing slightly better today compared to yesterday. He is still requiring 10 L high flow nasal cannula. Chest x-ray continues to show evidence of fluid volume overload/CHF. Echocardiogram reveals mildly impaired left ventricular systolic function with ejection fraction of 45 to 50%. Moderately reduced global LV function. Blood culture is pending. White count 7.2. Hemoglobin 14.1. Platelets 168. Sodium 133. Potassium 4.2. Bicarb 27. BUN 44. Creatinine 2.12. Stool for occult blood was negative. Since. Anticoagulated with Eliquis. Antibiotics in the form of ceftriaxone and azithromycin. He is continued on Tamiflu. Lasix discontinued per cardiology. The patient is seen today July 22, 2024 in follow-up on the regular medical floor. He is currently on BiPAP 14/5 and 80% FiO2. He was trialed on 12 L high flow earlier this morning with O2 saturations in the 70s and 80s. Arterial blood gases on the 80% FiO2 revealed a PaO2 of 74, pCO2 of 38 and a pH of 7.42. A chest x-ray revealed similar findings of persistent cardiomegaly with bilateral multifocal acute infiltrates and/or edema. He received Lasix 40 mg IVP x 1. Blood culture reveals no growth to date. White count 8.7. Hemoglobin 12.8. Platelets 139. Sodium 128. Potassium 3.6. Bicarb 29. BUN 45. Creatinine 1.99. He is continued on DuoNeb inhalations. Continued on Tamiflu. Initiated on Solu-Cortef. Remains on antibiotics in the form of ceftriaxone and azithromycin. Anticoagulated with Eliquis. Currently on a 1500 mL fluid restriction. Nephrology is following. SAGAR inhibitor remains on hold. The patient is seen today July 23, 2024 in follow-up on the regular medical floor. He is currently sitting up in bed. Still requiring BiPAP support currently 14/5 and 60% FiO2. He remains on DuoNeb and elations, Solu-Cortef, Tamiflu. Anticoagulated with Eliquis. Antibiotics in the form of ceftriaxone. Blood culture reveals no growth. White count 7.6. Hemoglobin 13.3. Platelets 167. Sodium 133. Potassium 3.9. Bicarb 28. BUN 47. Creatinine 1.54. Glucose 132. Chest x-ray continues to show worsening bilateral diffuse acute infiltrates and/or edema. Developing ARDS is not excluded. He is given Lasix 40 mg IVP today. Currently in a negative balance. The patient is seen today July 24, 2024 in follow-up on the regular medical floor. Resting in bed. Currently afebrile. Hemodynamically stable. He contin ues to require BiPAP support 10/5 and 50% FiO2. He has been tolerating some time off on 15 L high flow nasal cannula with O2 saturations in the upper 80s. Blood culture revealed no growth. White count 6.7. Hemoglobin 13.6. Platelets 185. Sodium 133. Potassium 4.0. Bicarb 26. BUN 54. Creatinine 1.44. Glucose 178. He is continued on DuoNeb inhalations, Pulmicort and Perforomist inhalations, Solu-Medrol. Anticoagulated with Eliquis. Continued on Tamiflu. Completed a course of ceftriaxone. Received Lasix 40 mg IVP x 1 again today. Remains in a negative balance. X-ray continues to show bilateral diffuse acute infiltrates and/or edema. ARDS is not excluded. No significant change. The patient is seen today July 25, 2024 in follow-up on the selective care unit. He is awake and alert in no acute distress. He is sitting up in bed. He is currently on 15 L high flow nasal cannula. He has been off the BiPAP since earlier this morning which was set at 14/5 and 50% FiO2. He has been slow to progress. He did receive Lasix 40 mg IVP x 1 again today. Blood culture revealed no growth. White count 12.5. Hemoglobin 12.8. Platelets 219. Sodium 132. Potassium 3.9. Bicarb 27. BUN 58. Creatinine 1.40. Glucose 236. He remains on DuoNeb inhalations, Pulmicort and performance and elations, IV Solu- Medrol. He is anticoagulated with Eliquis. Remains on antibiotics in the form of ceftriaxone. Chest x-ray continues to show similar diffuse patchy airspace opacities throughout the lungs likely acute infiltrates and/or edema. Developing ARDS is not excluded. The patient is seen today July 26, 2024 in follow-up on the selective care unit. He is awake and alert in no acute distress. Sitting up in bed. Maintaining O2 saturations in the 90s on 12 L high flow nasal cannula. He did wear BiPAP last night 14/5 and 50% FiO2. He has been slow to progress but is feeling better today compared to yesterday. Chest x-ray shows similar diffuse patchy airspace opacities representing acute infiltrates versus edema versus ARDS. Remains on IV diuretics. Currently in a negative balance. White count 14.4. Hemoglobin 12.7. Platelets 242. Sodium 133. Potassium 3.9. Bicarb 27. BUN 53. Creatinine 1.31. Glucose 238. He remains on DuoNeb inhalations, Pulmicort and Perforomist inhalations, IV Solu-Medrol. He is anticoagulated with Eliquis. Remains on ceftriaxone. The patient is seen today July 27, 2024 in follow-up on the selective care unit. He is awake. Sitting up in bed. Maintaining good O2 saturations in the 90s now on 10 L high flow nasal cannula. Did wear the BiPAP from midnight to about 4 AM. Settings are 14/5 and 50% FiO2. Procalcitonin 0.33. He remains on DuoNeb inhalations, Pulmicort and Perforomist inhalations, Solu-Medrol. Remains on IV diuretics. Anticoagulated with Eliquis. Currently in a -500 mL balance. Objective - Vital Signs Vital signs: Vital Signs Temp 97.9 F 07/27/24 04:00 Pulse 64 07/27/24 11:56 Resp 21 07/27/24 04:00 BP 147/66 07/27/24 04:00 Pulse Ox 98 07/27/24 08:30 FiO2 50 07/27/24 04:00 Intake & Output 07/26/24 07/27/24 07/27/24 18:59 06:59 18:59 Intake Total 540 20 240 Output Total 300 750 500 Balance 240 -730 -260 Weight 76 kg Intake: IV 20 Invasive Line 3 20 Oral 540 240 Output: Urine 300 750 500 Other: Voiding Method Bedside Commode Bedside Commode Urinal Urinal # Voids 1 1 - Exam GENERAL EXAM: Alert, 64-year-old male, on 10 L high flow nasal cannula, fairly comfortable in no apparent distress. HEAD: Normocephalic. EYES: Normal reaction of pupils, equal size. NOSE: Clear with pink turbinates. THROAT: No erythema or exudates. NECK: No masses, no JVD. CHEST: No chest wall deformity. LUNGS: Equal air entry with crackles in the bilateral bases, diminished. CVS: S1 and S2 normal with no audible murmur, regular rhythm. ABDOMEN: No hepatosplenomegaly, normal bowel sounds, no guarding or rigidity. SPINE: No scoliosis or deformity SKIN: No rashes CENTRAL NERVOUS SYSTEM: No focal deficits, tone is normal in all 4 extremities. EXTREMITIES: There is 1+ peripheral edema. No clubbing, no cyanosis. Peripheral pulses are intact. - Labs CBC & Chem 7: 07/27/24 07:00 07/27/24 07:00 Labs: Abnormal Lab Results - Last 24 Hours (Table) 07/26/24 07/26/24 07/27/24 Range/Units 16:45 20:01 05:56 WBC (3.8-10.6) k/uL RBC (4.30-5.90) m/uL Hgb (13.0-17.5) gm/dL Neutrophils # (1.3-7.7) k/uL Lymphocytes # (1.0-4.8) k/uL Sodium (137-145) mmol/L BUN (9-20) mg/dL Creatinine (0.66-1.25) mg/dL Glucose (74-99) mg/dL POC Glucose (mg/dL) 304 H 231 H 207 H (70-110) mg/dL 07/27/24 07/27/24 07/27/24 Range/Units 07:00 07:00 11:34 WBC 16.7 H (3.8-10.6) k/uL RBC 4.23 L (4.30-5.90) m/uL Hgb 12.7 L (13.0-17.5) gm/dL Neutrophils # 15.2 H (1.3-7.7) k/uL Lymphocytes # 0.4 L (1.0-4.8) k/uL Sodium 133 L (137-145) mmol/L BUN 58 H (9-20) mg/dL Creatinine 1.30 H (0.66-1.25) mg/dL Glucose 186 H (74-99) mg/dL POC Glucose (mg/dL) 280 H (70-110) mg/dL Assessment and Plan Assessment: Acute hypoxemic respiratory failure secondary to an acute exacerbation of chronic obstructive pulmonary disease complicated by influenza A and underlying pneumonia. Procalcitonin 2.38. Acute influenza A infection Acute exacerbation of chronic systolic congestive heart failure with an ejection fraction now 45-50% Troponin leak possible non-ST segment elevation myocardial infarction secondary to above Acute kidney injury History of atrial fibrillation with previous cardioversion maintained on amiodarone and Eliquis Chronic tobacco dependence with suspected underlying COPD Hypertension Hyperlipidemia Diabetes mellitus, type II Plan: The patient was seen and evaluated Labs and medications reviewed Currently on 10 L high flow nasal cannula Continue BiPAP support as needed Continue to titrate down the FiO2 as tolerated Lasix 40 mg IVP daily Completed ceftriaxone Continue bronchodilators, Solu-Medrol Continue Tamiflu Anticoagulated with Eliquis Increase his activity as tolerated We will continue to follow I have personally seen and examined the patient, performed the documentation and the assessment and plan as written. Number of minutes spent on the visit: 10 Dictation was produced using [employer] (now [employer])ation software. Please excuse any grammatical, word or spelling errors.
[2024-07-27 16:24] LABS: Glucose,Whole Blood 235 mg/dL (70-110)
[2024-07-27 18:19] VITALS: BMI 26.2
[2024-07-27 20:03] LABS: Glucose,Whole Blood 250 mg/dL (70-110)
[2024-07-27] MEDS: INSULIN GLARGINE (LANTUS) 100 UNIT/ML SYR SQ SCH (20:36)
[2024-07-28 06:04] LABS: Glucose,Whole Blood 103 mg/dL (70-110)
--- NOTE | 2024-07-28 07:20 | XR ---
EXAMINATION TYPE: XR chest 1V portable DATE OF EXAM: 07/28/2024 7:06 AM COMPARISON: Chest radiographs from 07/27/2024 CLINICAL INDICATION: Male, 64 years old with history of ARDS; TECHNIQUE: XR chest 1V portable Frontal view of the chest. FINDINGS: Lungs/Pleura: Improved aeration of lungs on today's exam with persistent airspace opacities scattered throughout the lungs. No evidence of pneumothorax or large pleural effusion. Pulmonary vascularity: Unremarkable. Heart/mediastinum: Cardiomediastinal silhouette is unremarkable. Atherosclerotic calcifications are seen in the aorta. Musculoskeletal: No acute osseous pathology. IMPRESSION: Improved aeration of the lungs with persistent multifocal airspace opacities. [facility], , 07/28/2024 7:18 AM
[2024-07-28 09:11] LABS: Basophils % (A) 0 %; Eosinophils % (A) 0 %; HCT 40.8 % (39.0-53.0); Lymphocytes # (A) 0.4 k/uL (1.0-4.8); Lymphocytes % (A) 2 %; MCH 30.5 pg (25.0-35.0); MCHC 31.9 g/dL (31.0-37.0); MCV 95.6 fL (80.0-100.0); Mean Platelet Volume 9.3; Monocytes % (A) 6 %; Neutrophils # (A) 16.5 k/uL (1.3-7.7); Neutrophils % (A) 91 %; Platelet Count 387 k/uL (150-450); RBC 4.27 m/uL (4.30-5.90); RDW 12.7 % (11.5-15.5); WBC 18.1 k/uL (3.8-10.6)
[2024-07-28 09:37] LABS: African American GFR (CKD) 65 (>60 ml/min/1.73 sqM); Anion Gap 8 mmol/L; Blood Urea Nitrogen 60 mg/dL (9-20); Calcium 8.9 mg/dL (8.4-10.2); Carbon Dioxide 32 mmol/L (22-30); Chloride 97 mmol/L (98-107); Glucose 106 mg/dL (74-99); Non-African American GFR(CKD) 57 (>60 ml/min/1.73 sqM); Potassium 4.3 mmol/L (3.5-5.1); Sodium 137 mmol/L (137-145)
--- NOTE | 2024-07-28 10:50 | P.PN ---
Subjective Progress Note Date: 07/28/24 Patient seen for follow-up for DARI and hyponatremia. Renal function and sodium level remained stable. Remains on high flow nasal cannula. Currently 6 L. No active complaints. Oral intake fair. Objective - Vital Signs Vital signs: Vital Signs Temp 97.7 F 07/28/24 07:47 Pulse 68 07/28/24 08:49 Resp 18 07/28/24 07:54 BP 135/74 07/28/24 07:47 Pulse Ox 98 07/28/24 08:29 FiO2 50 07/28/24 00:32 Intake & Output 07/27/24 07/28/24 07/28/24 18:59 06:59 18:59 Intake Total 720 257 190 Output Total 500 875 Balance 220 -618 190 Weight 76 kg 76.5 kg Intake: IV 20 10 Invasive Line 4 20 10 Oral 720 237 180 Output: Urine 500 875 Other: Voiding Method Bedside Commode Bedside Commode Bedside Commode Urinal Urinal Urinal # Voids 1 - Exam Patient is awake, comfortable, no acute distress. 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 - Labs CBC & Chem 7: 07/29/24 08:01 07/29/24 08:01 Labs: Abnormal Lab Results - Last 24 Hours (Table) 07/27/24 07/27/24 07/27/24 Range/Units 11:34 16:23 20:00 WBC (3.8-10.6) k/uL RBC (4.30-5.90) m/uL Neutrophils # (1.3-7.7) k/uL Lymphocytes # (1.0-4.8) k/uL Chloride (98-107) mmol/L Carbon Dioxide (22-30) mmol/L BUN (9-20) mg/dL Creatinine (0.66-1.25) mg/dL Glucose (74-99) mg/dL POC Glucose (mg/dL) 280 H 235 H 250 H (70-110) mg/dL 07/28/24 07/28/24 Range/Units 08:01 08:01 WBC 18.1 H (3.8-10.6) k/uL RBC 4.27 L (4.30-5.90) m/uL Neutrophils # 16.5 H (1.3-7.7) k/uL Lymphocytes # 0.4 L (1.0-4.8) k/uL Chloride 97 L (98-107) mmol/L Carbon Dioxide 32 H (22-30) mmol/L BUN 60 H (9-20) mg/dL Creatinine 1.31 H (0.66-1.25) mg/dL Glucose 106 H (74-99) mg/dL POC Glucose (mg/dL) (70-110) mg/dL Assessment and Plan Assessment: #DARI secondary to ATN secondary to cardiorenal syndrome; renal function improving - currently stable. #Stage IIIa chronic kidney disease, baseline creatinine 1.6-1.7 #Hyponatremia secondary to hypervolemia and acute respiratory infection - resolved #Sepsis secondary to influenza type a pneumonia, s/p Tamiflu #Acute hypoxic respiratory failure secondary to above #HFrEF w/EF 45 to 50% #Type II NSTEMI Plan: -Discontinue daily 40 mg IV Lasix. Patient appears to be euvolemic at this time. With some evidence of contraction alkalosis. -Recheck labs in a.m. -Maintain fluid restriction 1500 cc -Avoid nephrotoxic agents. Can likely resume home dose of diuretics in 1-2 days. Patient is seen and examined. Agree with resient's findings ,assessment and plan.
[2024-07-28 12:03] LABS: Glucose,Whole Blood 170 mg/dL (70-110)
--- NOTE | 2024-07-28 13:18 | P.PN ---
Subjective Progress Note Date: 07/28/24 Principal diagnosis: Pneumonia, respiratory failure, CHF. This is a 64-year-old male patient with chronic and ongoing tobacco dependence, atrial fibrillation, diabetes mellitus, hypertension, hyperlipidemia who has a 1 week history of increasing shortness of breath, cough congestion fever and chills. He came into the emergency room last evening with severe shortness of breath requiring BiPAP support which was 14/5 and 50% FiO2. Chest x-ray revealed cardiomegaly and airspace disease most notably in the left mid lower lung zone suggestive of multifocal pneumonia and possible fluid volume overload. White count 10.5. Hemoglobin 14.3. Platelets 156. Sodium 135. Potassium 4.3. Bicarb 27. BUN 29. Creatinine 1.86. Glucose 174. Troponins 0.327, 0.550, 0.5-2. He is initiated on a heparin drip. proBNP was 13,000. Procalcitonin 2.38. He did test positive for influenza A. Initiated on Tamiflu. Initiated on ceftriaxone. He is seen today in consultation in the emergency department. He is currently sitting up on the stretcher. Awake and alert. He is on 6 L high flow nasal cannula. He is breathing a bit easier today compared to yesterday. Still with a loose nonproductive cough. He did have a Tmax of 102.3. Current temperature 99.1. He is hemodynamically stable. The patient is seen today July 21, 2024 in follow-up on the regular medical floor. He is awake and alert in no acute distress. Doing slightly better today compared to yesterday. He is still requiring 10 L high flow nasal cannula. Chest x-ray continues to show evidence of fluid volume overload/CHF. Echocardiogram reveals mildly impaired left ventricular systolic function with ejection fraction of 45 to 50%. Moderately reduced global LV function. Blood culture is pending. White count 7.2. Hemoglobin 14.1. Platelets 168. Sodium 133. Potassium 4.2. Bicarb 27. BUN 44. Creatinine 2.12. Stool for occult blood was negative. Since. Anticoagulated with Eliquis. Antibiotics in the form of ceftriaxone and azithromycin. He is continued on Tamiflu. Lasix discontinued per cardiology. The patient is seen today July 22, 2024 in follow-up on the regular medical floor. He is currently on BiPAP 14/5 and 80% FiO2. He was trialed on 12 L high flow earlier this morning with O2 saturations in the 70s and 80s. Arterial blood gases on the 80% FiO2 revealed a PaO2 of 74, pCO2 of 38 and a pH of 7.42. A chest x-ray revealed similar findings of persistent cardiomegaly with bilateral multifocal acute infiltrates and/or edema. He received Lasix 40 mg IVP x 1. Blood culture reveals no growth to date. White count 8.7. Hemoglobin 12.8. Platelets 139. Sodium 128. Potassium 3.6. Bicarb 29. BUN 45. Creatinine 1.99. He is continued on DuoNeb inhalations. Continued on Tamiflu. Initiated on Solu-Cortef. Remains on antibiotics in the form of ceftriaxone and azithromycin. Anticoagulated with Eliquis. Currently on a 1500 mL fluid restriction. Nephrology is following. SAGAR inhibitor remains on hold. The patient is seen today July 23, 2024 in follow-up on the regular medical floor. He is currently sitting up in bed. Still requiring BiPAP support currently 14/5 and 60% FiO2. He remains on DuoNeb and elations, Solu-Cortef, Tamiflu. Anticoagulated with Eliquis. Antibiotics in the form of ceftriaxone. Blood culture reveals no growth. White count 7.6. Hemoglobin 13.3. Platelets 167. Sodium 133. Potassium 3.9. Bicarb 28. BUN 47. Creatinine 1.54. Glucose 132. Chest x-ray continues to show worsening bilateral diffuse acute infiltrates and/or edema. Developing ARDS is not excluded. He is given Lasix 40 mg IVP today. Currently in a negative balance. The patient is seen today July 24, 2024 in follow-up on the regular medical floor. Resting in bed. Currently afebrile. Hemodynamically stable. He continues to require BiPAP support 10/5 and 50% FiO2. He has been tolerating some time off on 15 L high flow nasal cannula with O2 saturations in the upper 80s. Blood culture revealed no growth. White count 6.7. Hemoglobin 13.6. Platelets 185. Sodium 133. Potassium 4.0. Bicarb 26. BUN 54. Creatinine 1.44. Glucose 178. He is continued on DuoNeb inhalations, Pulmicort and Perforomist inhalations, Solu-Medrol. Anticoagulated with Eliquis. Continued on Tamiflu. Completed a course of ceftriaxone. Received Lasix 40 mg IVP x 1 again today. Remains in a negative balance. X-ray continues to show bilateral diffuse acute infiltrates and/or edema. ARDS is not excluded. No significant change. The patient is seen today July 25, 2024 in follow-up on the selective care unit. He is awake and alert in no acute distress. He is sitting up in bed. He is currently on 15 L high flow nasal cannula. He has been off the BiPAP since earlier this morning which was set at 14/5 and 50% FiO2. He has been slow to progress. He did receive Lasix 40 mg IVP x 1 again today. Blood culture revealed no growth. White count 12.5. Hemoglobin 12.8. Platelets 219. Sodium 132. Potassium 3.9. Bicarb 27. BUN 58. Creatinine 1.40. Glucose 236. He remains on DuoNeb inhalations, Pulmicort and performance and elations, IV Solu- Medrol. He is anticoagulated with Eliquis. Remains on antibiotics in the form of ceftriaxone. Chest x-ray continues to show similar diffuse patchy airspace opacities throughout the lungs likely acute infiltrates and/or edema. Developing ARDS is not excluded. The patient is seen today July 26, 2024 in follow-up on the selective care unit. He is awake and alert in no acute distress. Sitting up in bed. Maintaining O2 saturations in the 90s on 12 L high flow nasal cannula. He did wear BiPAP last night 14/5 and 50% FiO2. He has been slow to progress but is feeling better tod ay compared to yesterday. Chest x-ray shows similar diffuse patchy airspace opacities representing acute infiltrates versus edema versus ARDS. Remains on IV diuretics. Currently in a negative balance. White count 14.4. Hemoglobin 12.7. Platelets 242. Sodium 133. Potassium 3.9. Bicarb 27. BUN 53. Creatinine 1.31. Glucose 238. He remains on DuoNeb inhalations, Pulmicort and Perforomist inhalations, IV Solu-Medrol. He is anticoagulated with Eliquis. Remains on ceftriaxone. The patient is seen today July 27, 2024 in follow-up on the selective care unit. He is awake. Sitting up in bed. Maintaining good O2 saturations in the 90s now on 10 L high flow nasal cannula. Did wear the BiPAP from midnight to about 4 AM. Settings are 14/5 and 50% FiO2. Procalcitonin 0.33. He remains on DuoNeb inhalations, Pulmicort and Perforomist inhalations, Solu-Medrol. Remains on IV diuretics. Anticoagulated with Eliquis. Currently in a -500 mL balance. Progress note dated July 28, 2024. 64-year-old male admitted with a diagnosis of pneumonia, CHF, and acute respiratory failure. He is currently on 6 L nasal cannula. He does have BiPAP in the room, with settings of 14/5, 50%. He is not receiving any IV fluids. He is awake and alert. No distress. Current labs include a white count 18.1, hemoglobin 13, hematocrit 40.8, and platelet count of 387,000. Sodium 137, potassium 4.3, chlorides 97, CO2 32, BUN 60, and creatinine 1.31. Glucose is 170. Calcium 8.9. Chest x-ray shows improved aeration of the lungs bilaterally. Objective - Vital Signs Vital signs: Vital Signs Temp 97.7 F 07/28/24 07:47 Pulse 64 07/28/24 12:02 Resp 19 07/28/24 11:10 BP 128/61 07/28/24 11:10 Pulse Ox 98 07/28/24 11:52 FiO2 50 07/28/24 00:32 Intake & Output 07/27/24 07/28/24 07/28/24 18:59 06:59 18:59 Intake Total 720 257 190 Output Total 500 875 300 Balance 220 -618 -110 Weight 76 kg 76.5 kg Intake: IV 20 10 Invasive Line 4 20 10 Oral 720 237 180 Output: Urine 500 875 300 Other: Voiding Method Bedside Commode Bedside Commode Bedside Commode Urinal Urinal Urinal # Voids 1 - Exam No acute distress, oriented 3. Currently on nasal O2 at 6 L. HEENT examination is grossly unremarkable. Mucous membranes are moist. No oral lesions. Neck supple. Full range of motion. No adenopathy thyromegaly or neck vein distention. Cardiovascular examination reveals regular rhythm rate. S1-S2 normal. No S3 or S4. No discernible murmur noted. Lungs reveal bibasilar crackles. No wheezes. No rhonchi. Breath sounds are equal bilaterally. Abdomen soft bowel sounds are heard. No masses or tenderness. Extremities are intact. No cyanosis or clubbing. There is 1+ edema. Skin is without rash or lesion. Neurologic examination is brief but nonfocal. - Labs CBC & Chem 7: 07/28/24 08:01 07/28/24 08:01 Labs: Abnormal Lab Results - Last 24 Hours (Table) 07/27/24 07/27/24 07/28/24 Range/Units 16:23 20:00 08:01 WBC 18.1 H (3.8-10.6) k/uL RBC 4.27 L (4.30-5.90) m/uL Neutrophils # 16.5 H (1.3-7.7) k/uL Lymphocytes # 0.4 L (1.0-4.8) k/uL Chloride (98-107) mmol/L Carbon Dioxide (22-30) mmol/L BUN (9-20) mg/dL Creatinine (0.66-1.25) mg/dL Glucose (74-99) mg/dL POC Glucose (mg/dL) 235 H 250 H (70-110) mg/dL 07/28/24 07/28/24 Range/Units 08:01 12:01 WBC (3.8-10.6) k/uL RBC (4.30-5.90) m/uL Neutrophils # (1.3-7.7) k/uL Lymphocytes # (1.0-4.8) k/uL Chloride 97 L (98-107) mmol/L Carbon Dioxide 32 H (22-30) mmol/L BUN 60 H (9-20) mg/dL Creatinine 1.31 H (0.66-1.25) mg/dL Glucose 106 H (74-99) mg/dL POC Glucose (mg/dL) 170 H (70-110) mg/dL Assessment and Plan Assessment: Acute hypoxemic respiratory failure secondary to an acute exacerbation of chronic obstructive pulmonary disease complicated by influenza A and underlying pneumonia. Acute influenza A infection. Acute exacerbation of chronic systolic congestive heart failure with an ejection fraction now 45-50%. Troponin leak possible non-ST segment elevation myocardial infarction. Acute kidney injury. History of atrial fibrillation with previous cardioversion. Chronic tobacco dependence with suspected underlying COPD. Hypertension. Hyperlipidemia. Diabetes mellitus, type II. Plan: Plan dated July 28, 2024. The patient is seen today in room 378. He is currently on 6 L. Chest x-ray is clearly improved. We will continue to follow make recommendations where appropriate. All labs, x-rays, medications are reviewed. The patient is not receiving any IV fluids. Yesterday, he was on 10 L high flow. BiPAP is in the room, with settings of 14/5 and 50%. We will continue to follow make recommendations where appropriate. The patients overall prognosis remains guarded. Dictation was produced using [employer] software. Please excuse any grammatical, word or spelling errors. Time with Patient: Less than 30
--- NOTE | 2024-07-28 16:30 | P.PN ---
Subjective Progress Note Date: 07/28/24 Patient is a 64-year-old male with a PMH of A-fib on Eliquis, COPD not on home oxygen, type II DM, hypertension, hyperlipidemia, CKD stage IIIa who presents to the emergency room with complaints of shortness of breath and cough. Patient reports that over the past 1 week he has been experiencing gradually worsening persistent cough. Reports that the cough is nonproductive. He also reports exertional dyspnea. Denies experiencing fever or chills. Also denies chest discomfort, nausea, vomiting, abdominal pain, diarrhea. Chest x-ray in the emergency room revealed cardiomegaly along with findings of multifocal pneumonia. EKG revealed sinus rhythm at 93 bpm with intraventricular conduction delay as reviewed by me. Laboratory evaluation did reveal influenza type a positive, troponin 0.102, proBNP 12,900, lactic acid 3.3, glucose 228, BUN 25, creatinine 1.59, and WBC count 12.7 with neutrophilic predominance. Patient was reportedly severely hypoxic and in respiratory distress upon EMS arrival at the scene and was started on BiPAP. 07/21/2024 patient seen and examined at bedside. No acute events overnight. No new complaints. WBC 7.2, hemoglobin 14.1, platelet count 1 68,000, PT 12.1, INR 1.1, PTT 103.7, sodium 133, potassium 4.2, chloride 96, bicarb 27, BUN 44, creatinine 2.12, glucose 97. Troponin increased to 0.55 and has flattened. Chest x-ray done showed findings favor CHF exacerbation/fluid overload state. Areas of underlying acute infiltrate cannot be excluded. No significant change from most recent x-ray. 07/22/24 patient seen and examined at bedside. no new complaints. Currently comfortable on BiPAP. Labs today showed WBC 8.7, hemoglobin 12.8, MCV 93.7, platelet count 1 39,000, sodium 128, potassium 3.6, chloride 94, BUN 44, creatinine 1.99, calcium 7.8, glucose 113. ABG showed pH of 7.42, pCO2 38, pO2 74. Urinalysis showed +1 protein, moderate ketones, rare bacteria, 9 hyaline casts and rare mucus, negative nitrites, negative leukocyte esterase. Renal u ltrasound done on 07/21 showed negative for hydronephrosis, stones, bladder anechoic patient seen and examined at bedside. Given Ativan IV for anxiety overnight. No acute events. Still required BiPAP overnight. WBC 7.6, hemoglobin 13.9, platelet count 1 67,000, sodium 133, chloride 97, BUN 47, creatinine 1.54, glucose 132, calcium 8.5. Legionella Ag negative. Chest x-ray today showed continued worsening of bilateral diffuse acute infiltrates and/or edema, developing ARDS not included. 07/24/24 patient seen and examined at bedside. Still needed BiPAP overnight. No new complaints. No acute events overnight. Labs today show WBC 6.7, hemoglobin 13.6, platelet count 1 85,000, sodium 133, potassium 4, chloride 98, BUN 54, creatinine 1.44, glucose 178, A1c 6.2, calcium 8.9. Chest x-ray independently interpreted showed continued bilateral diffuse acute infiltrates and/or edema. No significant change from prior x-ray. 07/25/2024 patient seen and examined at bedside. No acute events overnight. No new complaints. Still requiring BiPAP overnight. Labs today showed WBC 12.5, hemoglobin 12.8, MCV 93.3, platelet count 219,000, sodium 132, potassium 3.9, chloride 97, bicarb 27, BUN 58, creatinine 1.4, glucose 236, calcium 9, magnesium 2. Chest x-ray independently interpreted showed similar diffuse patchy airspace opacities throughout the lungs likely representing acute infiltrates and/or edema. 07/26/2024 Patient seen and examined at bedside. No acute events overnight. Res piratory function similar to yesterday 07/27/2024 patient seen and examined at bedside. No acute events overnight. Still requiring BiPAP at night on FiO2 of 50%. Labs today showed WBC 16.7, hemoglobin 12.7, MCV 94.5, platelet count 210,000, sodium 133, potassium 3.8, chloride 98, bicarb 38, BUN 58, creatinine 1.3, glucose 196, calcium 8.8, magnesium 2. Chest x-ray today independently interpreted showed no changes in diffuse patchy airspace opacities throughout the lungs. 07/28/2024 patient seen and examined at bedside. No acute events overnight. Was able to tolerate oxygenation with high flow nasal cannula overnight. Labs today showed WBC 18.1, hemoglobin 13, platelet count 387,000, sodium 137, potassium 4.3, chloride 97, bicarb 32, BUN 60, creatinine 1.31, glucose 106, calcium 8.9. Chest x-ray today reported improved aeration of the lungs with persistent multifocal airspace opacities. Review of systems: Pertinent positives and negatives as discussed in HPI, a complete review of systems was performed and all other systems are negative. Pertinent imaging and labs reviewed. Physical examination: Vital signs reviewed General: non toxic, no distress, appears at stated age, ill-appearing, HFNC Derm: no unusual rashes/lesions, warm Head: atraumatic, normocephalic, symmetric Eyes: EOMI, anicteric sclera, pupils equal round reactive to light ENT: Nose and ears atraumatic Neck: No cervical lymphadenopathy, trachea midline, supple Mouth: no lip lesion, mucus membranes moist Cardiovascular: S1S2 reg, no murmur Lungs: decreased breath sounds in middle lung rapp, bibasilar coarse rales, no rhonchi, no rales, no accessory muscle use Abdominal: soft, nontender to palpation, no guarding Ext: muscle strength 5 out of 5 in all 4 extremities grossly, no gross muscle atrophy, no contractures, positive dorsalis pedis pulse bilateral, no edema Neuro: CN II-XI grossly intact, no gross focal neuro deficits Psych: Alert and oriented x3, appropriate affect and mood Assessment/Plan: 64-year-old male with history of COPD, A-fib on Eliquis and CKD stage III here for further management of cardiorenal syndrome and sepsis seconda ry to pneumonia now BiPAP dependent. #. Cardiorenal syndrome #. Heart failure with reduced ejection fraction EF of 45 to 50% (06/2024), not on GDMT #. Hyponatremia secondary to above #. Acute kidney injury on CKD, improving -Discontinue Lasix 40 mg IV. Reevaluate need tomorrow, discussed with nephrology as well -Patient euvolemic today. Continue to monitor volume status. -Strict CHOCO's -Daily weights -Fluid restriction -Monitor BMP for electrolytes and renal function -Cardiology consulted -Metoprolol 25 mg daily. Initiate GDMT on discharge #. Sepsis secondary to influenza pneumonia, unable to rule out bacterial pneumonia #. Acute hypoxic respiratory failure, secondary to above #. Severe ARDS -P/F ratio 92 -Chest x-ray today reported improved aeration of the lungs with persistent multifocal airspace opacities -Procalcitonin normal at 0.33 -Legionella urine antigen neagtive -Supportive oxygen as needed -Discontinued Rocephin 2 g IVPB -Finished Tamiflu p.o. on 07/26 -Hydrocortisone 50mg IV every 6 hours discontinued by pulmonology -Solumedrol 60mg IV every 6 hours per pulmonology -Blood culture negative -Monitor CBC #. NSTEMI, type II -EKG revealed sinus rhythm at 93 bpm with intraventricular conduction delay on admission -Patient has no chest pain -Troponins flattened at 0.5 -IV heparin for 48 hours. Now discontinued -Cardiology initiated atorvastatin 40 mg daily #. Lactic acidosis, resovled Chronic conditions: #. A-fib #. COPD #. Type II DM #. Hypertension #. Hyperlipidemia -Lisinopril held due to DARI -Continue Eliquis 5 mg twice daily, amiodarone 200 mg p.o. daily, metoprolol 25 mg daily -Hemoglobin A1c 6.2 -Glargine 42 units units nightly -Initiate lispro 14 units SQ ACHS for meal coverage -Not on home diabetes medications -Glucose Accu-Cheks ACHS -Continue insulin sliding scale ACHS -Monitor for hypoglycemia F: Restrict fluids due to 1.5 liters E: Monitor electrolytes particularly sodium and potassium N: Heart healthy diet A: Can ambulate with assistance DVT prophylaxis: Eliquis 5 mg p.o. daily Gabrielle Song MD PGY-1/[employer] Dictation was produced using [employer] dictation software. please excuse any grammatical, word or spelling errors. I have seen and evaluated the patient today. Discussed with the resident and agree with the residents finding and plan as documented in the resident's note. Changes highlighted in blue font. Objective - Vital Signs Vital signs: Vital Signs Temp 97.7 F 07/28/24 04:00 Pulse 58 L 07/28/24 04:00 Resp 22 07/28/24 04:00 BP 131/67 07/28/24 04:00 Pulse Ox 98 07/28/24 04:00 FiO2 50 07/28/24 00:32 Intake & Output 07/27/24 07/28/24 07/28/24 18:59 06:59 18:59 Intake Total 720 257 Output Total 500 875 Balance 220 -618 Weight 76 kg 76.5 kg Intake: IV 20 Invasive Line 4 20 Oral 720 237 Output: Urine 500 875 Other: Voiding Method Bedside Commode Bedside Commode Urinal Urinal # Voids 1 - Labs CBC & Chem 7: 07/28/24 08:01 07/28/24 08:01 Labs: Abnormal Lab Results - Last 24 Hours (Table) 07/27/24 07/27/24 07/27/24 Range/Units 07:00 07:00 11:34 WBC 16.7 H (3.8-10.6) k/uL RBC 4.23 L (4.30-5.90) m/uL Hgb 12.7 L (13.0-17.5) gm/dL Neutrophils # 15.2 H (1.3-7.7) k/uL Lymphocytes # 0.4 L (1.0-4.8) k/uL Sodium 133 L (137-145) mmol/L BUN 58 H (9-20) mg/dL Creatinine 1.30 H (0.66-1.25) mg/dL Glucose 186 H (74-99) mg/dL POC Glucose (mg/dL) 280 H (70-110) mg/dL 07/27/24 07/27/24 Range/Units 16:23 20:00 WBC (3.8-10.6) k/uL RBC (4.30-5.90) m/uL Hgb (13.0-17.5) gm/dL Neutrophils # (1.3-7.7) k/uL Lymphocytes # (1.0-4.8) k/uL Sodium (137-145) mmol/L BUN (9-20) mg/dL Creatinine (0.66-1.25) mg/dL Glucose (74-99) mg/dL POC Glucose (mg/dL) 235 H 250 H (70-110) mg/dL
[2024-07-28 16:58] LABS: Glucose,Whole Blood 233 mg/dL (70-110)
[2024-07-28 19:58] LABS: Glucose,Whole Blood 202 mg/dL (70-110)
[2024-07-29 06:11] LABS: Glucose,Whole Blood 160 mg/dL (70-110)
--- NOTE | 2024-07-29 07:08 | XR ---
EXAMINATION TYPE: XR chest 1V portable DATE OF EXAM: 07/29/2024 6:34 AM COMPARISON: Chest radiographs from 07/28/2024 CLINICAL INDICATION: Male, 64 years old with history of ARDS; [facility] TECHNIQUE: XR chest 1V portable Frontal view of the chest. FINDINGS: Lungs/Pleura: Multifocal airspace opacities. No evidence of pneumothorax or pleural effusion. Pulmonary vascularity: Unremarkable. Heart/mediastinum: Cardiomediastinal silhouette is unremarkable. Atherosclerotic calcifications are seen in the aorta. Musculoskeletal: No acute osseous pathology. IMPRESSION: Multifocal airspace opacities compatible with pulmonary edema in provided history. [facility], , 07/29/2024 7:06 AM
[2024-07-29 08:40] LABS: Basophils % (A) 0 %; Eosinophils % (A) 0 %; HGB 12.4 gm/dL (13.0-17.5); Lymphocytes # (A) 0.3 k/uL (1.0-4.8); Lymphocytes % (A) 2 %; MCH 30.2 pg (25.0-35.0); MCHC 31.9 g/dL (31.0-37.0); MCV 94.7 fL (80.0-100.0); Mean Platelet Volume 9.2; Monocytes # (A) 0.8 k/uL (0-1.0); Monocytes % (A) 4 %; Neutrophils # (A) 18.4 k/uL (1.3-7.7); Neutrophils % (A) 94 %; Platelet Count 399 k/uL (150-450); RBC 4.12 m/uL (4.30-5.90); RDW 12.6 % (11.5-15.5); WBC 19.6 k/uL (3.8-10.6)
[2024-07-29 08:55] LABS: African American GFR (CKD) 71 (>60 ml/min/1.73 sqM); Anion Gap 5 mmol/L; Blood Urea Nitrogen 63 mg/dL (9-20); Calcium 8.8 mg/dL (8.4-10.2); Carbon Dioxide 29 mmol/L (22-30); Chloride 99 mmol/L (98-107); Glucose 130 mg/dL (74-99); Non-African American GFR(CKD) 62 (>60 ml/min/1.73 sqM); Potassium 4.3 mmol/L (3.5-5.1); Sodium 133 mmol/L (137-145)
[2024-07-29 11:55] LABS: Glucose,Whole Blood 157 mg/dL (70-110)
--- NOTE | 2024-07-29 12:12 | P.PN ---
Subjective Progress Note Date: 07/29/24 Patient seen for follow-up for DARI and hyponatremia. Renal function and sodium level remained stable. Was breathing comfortably on room air. No active complaints. Oral intake fair. Objective - Vital Signs Vital signs: Vital Signs Temp 97.7 F 07/29/24 04:00 Pulse 71 07/29/24 09:05 Resp 16 07/29/24 09:05 BP 130/66 07/29/24 09:05 Pulse Ox 92 L 07/29/24 09:05 FiO2 50 07/28/24 00:32 Intake & Output 07/28/24 07/29/24 07/29/24 18:59 06:59 18:59 Intake Total 380 20 Output Total 300 900 Balance 80 -880 Weight 77.5 kg Intake: IV 20 20 Invasive Line 4 20 20 Oral 360 Output: Urine 300 900 Other: Voiding Method Bedside Commode Bedside Commode Urinal Urinal # Voids 1 # Bowel Movements 1 - Exam Patient is awake, comfortable, no acute distress. Heart: S1 and S2 heard Lungs: Bilateral breath sounds are heard Abdomen: Soft and nontender Lower extremities: No edema [employer] PA[employer] SUPER[employer]OR: grossly intact - Labs CBC & Chem 7: 07/30/24 07:25 07/30/24 07:25 Labs: Abnormal Lab Results - Last 24 Hours (Table) 07/28/24 07/28/24 07/28/24 Range/Units 12:01 16:53 19:57 WBC (3.8-10.6) k/uL RBC (4.30-5.90) m/uL Hgb (13.0-17.5) gm/dL Neutrophils # (1.3-7.7) k/uL Lymphocytes # (1.0-4.8) k/uL Sodium (137-145) mmol/L BUN (9-20) mg/dL Glucose (74-99) mg/dL POC Glucose (mg/dL) 170 H 233 H 202 H (70-110) mg/dL 07/29/24 07/29/24 07/29/24 Range/Units 06:09 08:01 08:01 WBC 19.6 H (3.8-10.6) k/uL RBC 4.12 L (4.30-5.90) m/uL Hgb 12.4 L (13.0-17.5) gm/dL Neutrophils # 18.4 H (1.3-7.7) k/uL Lymphocytes # 0.3 L (1.0-4.8) k/uL Sodium 133 L (137-145) mmol/L BUN 63 H (9-20) mg/dL Glucose 130 H (74-99) mg/dL POC Glucose (mg/dL) 160 H (70-110) mg/dL Assessment and Plan Assessment: #DARI secondary to ATN secondary to cardiorenal syndrome; renal function improving - currently stable, creatinine today 1.22. #Stage IIIa chronic kidney disease, baseline creatinine 1.6-1.7 #Hyponatremia secondary to hypervolemia and acute respiratory infection #Sepsis secondary to influenza type a pneumonia, s/p Tamiflu #Acute hypoxic respiratory failure secondary to above #HFrEF w/EF 45 to 50% #Type II NSTEMI Plan: -Patient appears to be euvolemic at this time. -Recheck labs in a.m. -Maintain fluid restriction 2000 cc -Avoid nephrotoxic agents -Stable for discharge from nephrology standpoint Agree with resident's findings, assessment and plan.
--- NOTE | 2024-07-29 13:56 | P.PN ---
Subjective Progress Note Date: 07/29/24 This is a 64-year-old male patient with chronic and ongoing tobacco dependence, atrial fibrillation, diabetes mellitus, hypertension, hyperlipidemia who has a 1 week history of increasing shortness of breath, cough congestion fever and chills. He came into the emergency room last evening with severe shortness of breath requiring BiPAP support which was 14/5 and 50% FiO2. Chest x-ray revealed cardiomegaly and airspace disease most notably in the left mid lower lung zone suggestive of multifocal pneumonia and possible fluid volume overload. White count 10.5. Hemoglobin 14.3. Platelets 156. Sodium 135. Potassium 4.3. Bicarb 27. BUN 29. Creatinine 1.86. Glucose 174. Troponins 0.327, 0.550, 0.5-2. He is initiated on a heparin drip. proBNP was 13,000. Procalcitonin 2.38. He did test positive for influenza A. Initiated on Tamiflu. Initiated on ceftriaxone. He is seen today in consultation in the emergency department. He is currently sitting up on the stretcher. Awake and alert. He is on 6 L high flow nasal cannula. He is breathing a bit easier today compared to yesterday. Still with a loose nonproductive cough. He did have a Tmax of 102.3. Current temperature 99.1. He is hemodynamically stable. The patient is seen today July 21, 2024 in follow-up on the regular medical floor. He is awake and alert in no acute distress. Doing slightly better today compared to yesterday. He is still requiring 10 L high flow nasal cannula. Chest x-ray continues to show evidence of fluid volume overload/CHF. Echocardiogram reveals mildly impaired left ventricular systolic function with ejection fraction of 45 to 50%. Moderately reduced global LV function. Blood culture is pending. White count 7.2. Hemoglobin 14.1. Platelets 168. Sodium 133. Potassium 4.2. Bicarb 27. BUN 44. Creatinine 2.12. Stool for occult blood was negative. Since. Anticoagulated with Eliquis. Antibiotics in the form of ceftriaxone and azithromycin. He is continued on Tamiflu. Lasix discontinued per cardiology. The patient is seen today July 22, 2024 in follow-up on the regular medical floor. He is currently on BiPAP 14/5 and 80% FiO2. He was trialed on 12 L high flow earlier this morning with O2 saturations in the 70s and 80s. Arterial blood gases on the 80% FiO2 revealed a PaO2 of 74, pCO2 of 38 and a pH of 7.42. A chest x-ray revealed similar findings of persistent cardiomegaly with bilateral multifocal acute infiltrates and/or edema. He received Lasix 40 mg IVP x 1. Blood culture reveals no growth to date. White count 8.7. Hemoglobin 12.8. Platelets 139. Sodium 128. Potassium 3.6. Bicarb 29. BUN 45. Creatinine 1.99. He is continued on DuoNeb inhalations. Continued on Tamiflu. Initiated on Solu-Cortef. Remains on antibiotics in the form of ceftriaxone and azithromycin. Anticoagulated with Eliquis. Currently on a 1500 mL fluid restriction. Nephrology is following. SAGAR inhibitor remains on hold. The patient is seen today July 23, 2024 in follow-up on the regular medical floor. He is currently sitting up in bed. Still requiring BiPAP support currently 14/5 and 60% FiO2. He remains on DuoNeb and elations, Solu-Cortef, Tamiflu. Anticoagulated with Eliquis. Antibiotics in the form of ceftriaxone. Blood culture reveals no growth. White count 7.6. Hemoglobin 13.3. Platelets 167. Sodium 133. Potassium 3.9. Bicarb 28. BUN 47. Creatinine 1.54. Glucose 132. Chest x-ray continues to show worsening bilateral diffuse acute infiltrates and/or edema. Developing ARDS is not excluded. He is given Lasix 40 mg IVP today. Currently in a negative balance. The patient is seen today July 24, 2024 in follow-up on the regular medical floor. Resting in bed. Currently afebrile. Hemodynamically stable. He contin ues to require BiPAP support 10/5 and 50% FiO2. He has been tolerating some time off on 15 L high flow nasal cannula with O2 saturations in the upper 80s. Blood culture revealed no growth. White count 6.7. Hemoglobin 13.6. Platelets 185. Sodium 133. Potassium 4.0. Bicarb 26. BUN 54. Creatinine 1.44. Glucose 178. He is continued on DuoNeb inhalations, Pulmicort and Perforomist inhalations, Solu-Medrol. Anticoagulated with Eliquis. Continued on Tamiflu. Completed a course of ceftriaxone. Received Lasix 40 mg IVP x 1 again today. Remains in a negative balance. X-ray continues to show bilateral diffuse acute infiltrates and/or edema. ARDS is not excluded. No significant change. The patient is seen today July 25, 2024 in follow-up on the selective care unit. He is awake and alert in no acute distress. He is sitting up in bed. He is currently on 15 L high flow nasal cannula. He has been off the BiPAP since earlier this morning which was set at 14/5 and 50% FiO2. He has been slow to progress. He did receive Lasix 40 mg IVP x 1 again today. Blood culture revealed no growth. White count 12.5. Hemoglobin 12.8. Platelets 219. Sodium 132. Potassium 3.9. Bicarb 27. BUN 58. Creatinine 1.40. Glucose 236. He remains on DuoNeb inhalations, Pulmicort and performance and elations, IV Solu- Medrol. He is anticoagulated with Eliquis. Remains on antibiotics in the form of ceftriaxone. Chest x-ray continues to show similar diffuse patchy airspace opacities throughout the lungs likely acute infiltrates and/or edema. Developing ARDS is not excluded. The patient is seen today July 26, 2024 in follow-up on the selective care unit. He is awake and alert in no acute distress. Sitting up in bed. Maintaining O2 saturations in the 90s on 12 L high flow nasal cannula. He did wear BiPAP last night 14/5 and 50% FiO2. He has been slow to progress but is feeling better today compared to yesterday. Chest x-ray shows similar diffuse patchy airspace opacities representing acute infiltrates versus edema versus ARDS. Remains on IV diuretics. Currently in a negative balance. White count 14.4. Hemoglobin 12.7. Platelets 242. Sodium 133. Potassium 3.9. Bicarb 27. BUN 53. Creatinine 1.31. Glucose 238. He remains on DuoNeb inhalations, Pulmicort and Perforomist inhalations, IV Solu-Medrol. He is anticoagulated with Eliquis. Remains on ceftriaxone. The patient is seen today July 27, 2024 in follow-up on the selective care unit. He is awake. Sitting up in bed. Maintaining good O2 saturations in the 90s now on 10 L high flow nasal cannula. Did wear the BiPAP from midnight to about 4 AM. Settings are 14/5 and 50% FiO2. Procalcitonin 0.33. He remains on DuoNeb inhalations, Pulmicort and Perforomist inhalations, Solu-Medrol. Remains on IV diuretics. Anticoagulated with Eliquis. Currently in a -500 mL balance. The patient is seen today July 28, 2024 in follow-up on the selective care unit. He is currently sitting up in bed. Awake and alert in no acute distress. Maintaining O2 saturations in the 90s on 2 L/min per nasal cannula. He is 84% on room air. Chest x-ray reveals similar multifocal airspace opacities compatible with pulmonary edema. Blood culture revealed no growth. White count 19.6. Hemoglobin 12.4. Platelets 399. Sodium 133. Potassium 4.3. Bicarb 29. BUN 63. Creatinine 1.22. Glucose 130. Remains on DuoNeb inhalations, Pulmicort and performance inhalations, prednisone taper. Anticoagulated with Eliquis. Objective - Vital Signs Vital signs: Vital Signs Temp 97.7 F 07/29/24 04:00 Pulse 68 07/29/24 11:37 Resp 16 07/29/24 11:54 BP 120/70 07/29/24 11:54 Pulse Ox 90 L 07/29/24 12:23 FiO2 50 07/28/24 00:32 Intake & Output 07/28/24 07/29/24 07/29/24 18:59 06:59 18:59 Intake Total 380 20 10 Output Total 300 900 Balance 80 -880 10 Weight 77.5 kg Intake: IV 20 20 10 Invasive Line 4 20 20 10 Oral 360 Output: Urine 300 900 Other: Voiding Method Bedside Commode Bedside Commode Urinal Urinal # Voids 1 # Bowel Movements 1 - Exam GENERAL EXAM: Alert, 64-year-old male, on 2 L nasal cannula, fairly comfortable in no apparent distress. HEAD: Normocephalic. EYES: Normal reaction of pupils, equal size. NOSE: Clear with pink turbinates. THROAT: No erythema or exudates. NECK: No masses, no JVD. CHEST: No chest wall deformity. LUNGS: Equal air entry with crackles in the bilateral bases, diminished. CVS: S1 and S2 normal with no audible murmur, regular rhythm. ABDOMEN: No hepatosplenomegaly, normal bowel sounds, no guarding or rigidity. SPINE: No scoliosis or deformity SKIN: No rashes CENTRAL NERVOUS SYSTEM: No focal deficits, tone is normal in all 4 extremities. EXTREMITIES: There is 1+ peripheral edema. No clubbing, no cyanosis. Peripheral pulses are intact. - Labs CBC & Chem 7: 07/29/24 08:01 07/29/24 08:01 Labs: Abnormal Lab Results - Last 24 Hours (Table) 07/28/24 07/28/24 07/29/24 Range/Units 16:53 19:57 06:09 WBC (3.8-10.6) k/uL RBC (4.30-5.90) m/uL Hgb (13.0-17.5) gm/dL Neutrophils # (1.3-7.7) k/uL Lymphocytes # (1.0-4.8) k/uL Sodium (137-145) mmol/L BUN (9-20) mg/dL Glucose (74-99) mg/dL POC Glucose (mg/dL) 233 H 202 H 160 H (70-110) mg/dL 07/29/24 07/29/24 07/29/24 Range/Units 08:01 08:01 11:54 WBC 19.6 H (3.8-10.6) k/uL RBC 4.12 L (4.30-5.90) m/uL Hgb 12.4 L (13.0-17.5) gm/dL Neutrophils # 18.4 H (1.3-7.7) k/uL Lymphocytes # 0.3 L (1.0-4.8) k/uL Sodium 133 L (137-145) mmol/L BUN 63 H (9-20) mg/dL Glucose 130 H (74-99) mg/dL POC Glucose (mg/dL) 157 H (70-110) mg/dL Assessment and Plan Assessment: Acute hypoxemic respiratory failure secondary to an acute exacerbation of chronic obstructive pulmonary disease complicated by influenza A and underlying pneumonia. Procalcitonin 2.38. Acute influenza A infection Acute exacerbation of chronic systolic congestive heart failure with an ejection fraction now 45-50% Troponin leak possible non-ST segment elevation myocardial infarction secondary to above Acute kidney injury History of atrial fibrillation with previous cardioversion maintained on am iodarone and Eliquis Chronic tobacco dependence with suspected underlying COPD Hypertension Hyperlipidemia Diabetes mellitus, type II Plan: The patient was seen and evaluated Labs and medications reviewed Cleared for discharge Currently on 2 L nasal cannula May require home oxygen Continue Symbicort, albuterol HFA, prednisone Follow-up in our office in 1 week I have personally seen and examined the patient, performed the documentation and the assessment and plan as written. Number of minutes spent on the visit: 10 Dictation was produced using [employer] dictation software. Please excuse any grammatical, word or spelling errors.
--- NOTE | 2024-07-29 14:45 | P.PN ---
Subjective Progress Note Date: 07/29/24 Patient is a 64-year-old male with a PMH of A-fib on Eliquis, COPD not on home oxygen, type II DM, hypertension, hyperlipidemia, CKD stage IIIa who presents to the emergency room with complaints of shortness of breath and cough. Patient reports that over the past 1 week he has been experiencing gradually worsening persistent cough. Reports that the cough is nonproductive. He also reports exertional dyspnea. Denies experiencing fever or chills. Also denies chest discomfort, nausea, vomiting, abdominal pain, diarrhea. Chest x-ray in the emergency room revealed cardiomegaly along with findings of multifocal pneumonia. EKG revealed sinus rhythm at 93 bpm with intraventricular conduction delay as reviewed by me. Laboratory evaluation did reveal influenza type a positive, troponin 0.102, proBNP 12,900, lactic acid 3.3, glucose 228, BUN 25, creatinine 1.59, and WBC count 12.7 with neutrophilic predominance. Patient was reportedly severely hypoxic and in respiratory distress upon EMS arrival at the scene and was started on BiPAP. 07/21/2024 patient seen and examined at bedside. No acute events overnight. No new complaints. WBC 7.2, hemoglobin 14.1, platelet count 1 68,000, PT 12.1, INR 1.1, PTT 103.7, sodium 133, potassium 4.2, chloride 96, bicarb 27, BUN 44, creatinine 2.12, glucose 97. Troponin increased to 0.55 and has flattened. Chest x-ray done showed findings favor CHF exacerbation/fluid overload state. Areas of underlying acute infiltrate cannot be excluded. No significant change from most recent x-ray. 07/22/24 patient seen and examined at bedside. no new complaints. Currently comfortable on BiPAP. Labs today showed WBC 8.7, hemoglobin 12.8, MCV 93.7, platelet count 1 39,000, sodium 128, potassium 3.6, chloride 94, BUN 44, creatinine 1.99, calcium 7.8, glucose 113. ABG showed pH of 7.42, pCO2 38, pO2 74. Urinalysis showed +1 protein, moderate ketones, rare bacteria, 9 hyaline casts and rare mucus, negative nitrites, negative leukocyte esterase. Renal u ltrasound done on 07/21 showed negative for hydronephrosis, stones, bladder anechoic patient seen and examined at bedside. Given Ativan IV for anxiety overnight. No acute events. Still required BiPAP overnight. WBC 7.6, hemoglobin 13.9, platelet count 1 67,000, sodium 133, chloride 97, BUN 47, creatinine 1.54, glucose 132, calcium 8.5. Legionella Ag negative. Chest x-ray today showed continued worsening of bilateral diffuse acute infiltrates and/or edema, developing ARDS not included. 07/24/24 patient seen and examined at bedside. Still needed BiPAP overnight. No new complaints. No acute events overnight. Labs today show WBC 6.7, hemoglobin 13.6, platelet count 1 85,000, sodium 133, potassium 4, chloride 98, BUN 54, creatinine 1.44, glucose 178, A1c 6.2, calcium 8.9. Chest x-ray independently interpreted showed continued bilateral diffuse acute infiltrates and/or edema. No significant change from prior x-ray. 07/25/2024 patient seen and examined at bedside. No acute events overnight. No new complaints. Still requiring BiPAP overnight. Labs today showed WBC 12.5, hemoglobin 12.8, MCV 93.3, platelet count 219,000, sodium 132, potassium 3.9, chloride 97, bicarb 27, BUN 58, creatinine 1.4, glucose 236, calcium 9, magnesium 2. Chest x-ray independently interpreted showed similar diffuse patchy airspace opacities throughout the lungs likely representing acute infiltrates and/or edema. 07/26/2024 Patient seen and examined at bedside. No acute events overnight. Res piratory function similar to yesterday 07/27/2024 patient seen and examined at bedside. No acute events overnight. Still requiring BiPAP at night on FiO2 of 50%. Labs today showed WBC 16.7, hemoglobin 12.7, MCV 94.5, platelet count 210,000, sodium 133, potassium 3.8, chloride 98, bicarb 38, BUN 58, creatinine 1.3, glucose 196, calcium 8.8, magnesium 2. Chest x-ray today independently interpreted showed no changes in diffuse patchy airspace opacities throughout the lungs. 07/28/2024 patient seen and examined at bedside. No acute events overnight. Was able to tolerate oxygenation with high flow nasal cannula overnight. Labs today showed WBC 18.1, hemoglobin 13, platelet count 387,000, sodium 137, potassium 4.3, chloride 97, bicarb 32, BUN 60, creatinine 1.31, glucose 106, calcium 8.9. Chest x-ray today reported improved aeration of the lungs with persistent multifocal airspace opacities. 13/10/2024 patient seen and examined at bedside. Patient required 2 L nasal cannula overnight. CHOCO negative balance. Labs today showed WBC 19.6, hemoglobin 12.4, MCV 94.7, platelet count 3 99,000, sodium 133, potassium 4.3, chloride 99, bicarb 29, BUN 63, creatinine 1.2, glucose 130, calcium 8.8. Chest x-ray showed multifocal airspace opacities compatible with pulmonary edema and provide history. Review of systems: Pertinent positives and negatives as discussed in HPI, a complete review of systems was performed and all other systems are negative. Pertinent imaging and labs reviewed. Physical examination: Vital signs reviewed General: non toxic, no distress, appears at stated age, ill-appearing, HFNC Derm: no unusual rashes/lesions, warm Head: atraumatic, normocephalic, symmetric Eyes: EOMI, anicteric sclera, pupils equal round reactive to light ENT: Nose and ears atraumatic Neck: No cervical lymphadenopathy, trachea midline, supple Mouth: no lip lesion, mucus membranes moist Cardiovascular: S1S2 reg, no murmur Lungs: decreased breath sounds in middle lung rapp, bibasilar coarse rales, no accessory muscle use Abdominal: soft, nontender to palpation, no guarding Ext: muscle strength 5 out of 5 in all 4 extremities grossly, no gross muscle atrophy, no contractures, positive dorsalis pedis pulse bilateral, no edema Neuro: CN II-XI grossly intact, no gross focal neuro deficits Psych: Alert and oriented x3, appropriate affect and mood Assessment/Plan: 64-year-old male with history of COPD, A-fib on Eliquis and CKD stage III here for further management of cardiorenal syndrome and sepsis secondary to pneumonia now BiPAP dependent. #. Cardiorenal syndrome #. Heart failure with reduced ejection fraction EF of 45 to 50% (06/2024), not on GDMT #. Hyponatremia secondary to above #. Acute kidney injury on CKD, improving -Discontinue Lasix 40 mg IV. Reevaluate need tomorrow, discussed with nephrology as well -Patient euvolemic today. Continue to monitor volume status. -Strict CHOCO's -Daily weights -Fluid restriction -Monitor BMP for electrolytes and renal function -Cardiology consulted -Metoprolol 25 mg daily. Initiate GDMT on discharge #. Sepsis secondary to influenza pneumonia, unable to rule out bacterial pneumonia #. Acute hypoxic respiratory failure, secondary to above #. Severe ARDS -P/F ratio 92 -Chest x-ray showed multifocal airspace opacities compatible with pulmonary edema and provide history. -Procalcitonin normal at 0.33 -Legionella urine antigen neagtive -Supportive oxygen as needed -Discontinued Rocephin 2 g IVPB -Finished Tamiflu p.o. on 07/26 -Discontinued Solumedrol 60mg IV -Initiate prednisone 40 mg p.o. daily -Blood culture negative -Monitor CBC -PT/OT consulted #. NSTEMI, type II -EKG revealed sinus rhythm at 93 bpm with intraventricular conduction delay on admission -Patient has no chest pain -Troponins flattened at 0.5 -IV heparin for 48 hours. Now discontinued -Cardiology initiated atorvastatin 40 mg daily #. Lactic acidosis, resovled Chronic conditions: #. A-fib #. COPD #. Type II DM #. Hypertension #. Hyperlipidemia -Restart Lisinopril 20mg daily -Continue Eliquis 5 mg twice daily, amiodarone 200 mg p.o. daily, metoprolol 25 mg daily -Hemoglobin A1c 6.2 -Glargine 42 units units nightly -Initiate lispro 16 units SQ ACHS for meal coverage -Not on home diabetes medications -Glucose Accu-Cheks ACHS -Continue insulin sliding scale ACHS -Monitor for hypoglycemia F: Restrict fluids due to 1.5 liters E: Monitor electrolytes particularly sodium and potassium N: Heart healthy diet A: Can ambulate with assistance DVT prophylaxis: Eliquis 5 mg p.o. daily Gabrielle Song MD PGY-1/Risk Tech Dictation was produced using [employer] dictation software. please excuse any grammatical, word or spelling errors. I have seen and evaluated the patient today. Discussed with the resident and agree with the residents finding and plan as documented in the resident's note. Changes highlighted in blue font. Objective - Vital Signs Vital signs: Vital Signs Temp 97.7 F 07/29/24 04:00 Pulse 64 07/29/24 04:00 Resp 20 07/29/24 04:00 BP 136/64 07/29/24 04:00 Pulse Ox 97 07/29/24 04:00 FiO2 50 07/28/24 00:32 Intake & Output 07/28/24 07/29/24 07/29/24 18:59 06:59 18:59 Intake Total 380 20 Output Total 300 900 Balance 80 -880 Weight 77.5 kg Intake: IV 20 20 Invasive Line 4 20 20 Oral 360 Output: Urine 300 900 Other: Voiding Method Bedside Commode Bedside Commode Urinal Urinal # Voids 1 # Bowel Movements 1 - Labs CBC & Chem 7: 07/29/24 08:01 07/29/24 08:01 Labs: Abnormal Lab Results - Last 24 Hours (Table) 07/28/24 07/28/24 07/28/24 Range/Units 08:01 08:01 12:01 WBC 18.1 H (3.8-10.6) k/uL RBC 4.27 L (4.30-5.90) m/uL Neutrophils # 16.5 H (1.3-7.7) k/uL Lymphocytes # 0.4 L (1.0-4.8) k/uL Chloride 97 L (98-107) mmol/L Carbon Dioxide 32 H (22-30) mmol/L BUN 60 H (9-20) mg/dL Creatinine 1.31 H (0.66-1.25) mg/dL Glucose 106 H (74-99) mg/dL POC Glucose (mg/dL) 170 H (70-110) mg/dL 07/28/24 07/28/24 07/29/24 Range/Units 16:53 19:57 06:09 WBC (3.8-10.6) k/uL RBC (4.30-5.90) m/uL Neutrophils # (1.3-7.7) k/uL Lymphocytes # (1.0-4.8) k/uL Chloride (98-107) mmol/L Carbon Dioxide (22-30) mmol/L BUN (9-20) mg/dL Creatinine (0.66-1.25) mg/dL Glucose (74-99) mg/dL POC Glucose (mg/dL) 233 H 202 H 160 H (70-110) mg/dL
[2024-07-29 17:07] LABS: Glucose,Whole Blood 273 mg/dL (70-110)
[2024-07-29] MEDS: INSULIN LISPRO (HumaLOG) 100 UNIT/ML 10 mL VL SQ SCH (18:12)
[2024-07-29 20:19] LABS: Glucose,Whole Blood 316 mg/dL (70-110)
[2024-07-29] MEDS: SYMBICORT 160-4.5 MCG INHALER INHALATION SCH (20:48)
[2024-07-30 00:04] LABS: Glucose,Whole Blood 171 mg/dL (70-110)
[2024-07-30 05:51] LABS: Glucose,Whole Blood 64 mg/dL (70-110)
[2024-07-30 06:03] LABS: Glucose,Whole Blood 57 mg/dL (70-110)
[2024-07-30 06:19] LABS: Glucose,Whole Blood 93 mg/dL (70-110)
--- NOTE | 2024-07-30 07:23 | XR ---
EXAMINATION TYPE: XR chest 1V portable DATE OF EXAM: 07/30/2024 7:04 AM COMPARISON: Chest radiograph from one day prior. CLINICAL INDICATION: Male, 64 years old with history of ARDS; [facility] TECHNIQUE: XR chest 1V portable Frontal view of the chest. FINDINGS: Lungs/Pleura: There is no evidence of pleural effusion, focal consolidation, or pneumothorax. Pulmonary vascularity: Similar pulmonary vascular congestion hazy opacities throughout the lungs. Heart/mediastinum: Cardiomediastinal silhouette is unremarkable. Musculoskeletal: No acute osseous pathology. Other findings: None IMPRESSION: Multifocal airspace opacities compatible with ARDS. [facility], , 07/30/2024 7:21 AM
[2024-07-30 07:44] LABS: Basophils % (A) 0 %; Eosinophils % (A) 0 %; HCT 37.6 % (39.0-53.0); HGB 11.7 gm/dL (13.0-17.5); Lymphocytes # (A) 0.6 k/uL (1.0-4.8); Lymphocytes % (A) 3 %; MCH 29.8 pg (25.0-35.0); MCHC 31.2 g/dL (31.0-37.0); MCV 95.6 fL (80.0-100.0); Mean Platelet Volume 9.1; Monocytes # (A) 1.4 k/uL (0-1.0); Monocytes % (A) 7 %; Neutrophils # (A) 19.1 k/uL (1.3-7.7); Neutrophils % (A) 90 %; Platelet Count 382 k/uL (150-450); RBC 3.94 m/uL (4.30-5.90); RDW 12.6 % (11.5-15.5); WBC 21.4 k/uL (3.8-10.6)
[2024-07-30 08:22] LABS: African American GFR (CKD) 60 (>60 ml/min/1.73 sqM); Anion Gap 6 mmol/L; Blood Urea Nitrogen 68 mg/dL (9-20); Calcium 8.5 mg/dL (8.4-10.2); Carbon Dioxide 29 mmol/L (22-30); Chloride 98 mmol/L (98-107); Glucose 157 mg/dL (74-99); Non-African American GFR(CKD) 52 (>60 ml/min/1.73 sqM); Sodium 133 mmol/L (137-145)
[2024-07-30] MEDS: lisinopriL 20 MG TAB PO SCH (09:50)
[2024-07-30] MEDS: predniSONE 20 MG TAB PO SCH (09:50)
[2024-07-30 09:56] LABS: Glucose,Whole Blood 242 mg/dL (70-110)
[2024-07-30 11:53] LABS: Glucose,Whole Blood 212 mg/dL (70-110)
[2024-07-30] MEDS: INSULIN LISPRO (HumaLOG) 100 UNIT/ML 10 mL VL SQ SCH (12:27)
--- NOTE | 2024-07-30 12:32 | P.PN ---
Subjective Progress Note Date: 07/30/24 Patient seen for follow-up for DARI and hyponatremia. Renal function and sodium level remained stable. Saturating the 90%'s on 2 L nasal cannula. Creatinine this morning 1.41 and BUN 68. Sodium this morning 133, stable. No active complaints. Oral intake fair. Objective - Vital Signs Vital signs: Vital Signs Temp 98.5 F 07/30/24 04:04 Pulse 74 07/30/24 08:45 Resp 16 07/30/24 04:04 BP 128/68 07/30/24 04:04 Pulse Ox 88 L 07/30/24 04:04 FiO2 50 07/28/24 00:32 Intake & Output 07/29/24 07/30/24 07/30/24 18:59 06:59 18:59 Intake Total 1194 Output Total 800 Balance 394 Weight 77 kg Intake: Oral 1194 Output: Urine 800 Other: Voiding Method Bedside Commode Urinal - Exam Patient is awake, comfortable, no acute distress. Heart: S1 and S2 heard Lungs: Bilateral breath sounds are heard Abdomen: Soft and nontender Lower extremities: No edema PHILOSOPHY SPECIALIST: grossly intact - Labs CBC & Chem 7: 07/30/24 07:25 07/30/24 07:25 Labs: Abnormal Lab Results - Last 24 Hours (Table) 07/29/24 07/29/24 07/29/24 Range/Units 11:54 17:05 20:18 WBC (3.8-10.6) k/uL RBC (4.30-5.90) m/uL Hgb (13.0-17.5) gm/dL Hct (39.0-53.0) % Neutrophils # (1.3-7.7) k/uL Lymphocytes # (1.0-4.8) k/uL Monocytes # (0-1.0) k/uL Sodium (137-145) mmol/L BUN (9-20) mg/dL Creatinine (0.66-1.25) mg/dL Glucose (74-99) mg/dL POC Glucose (mg/dL) 157 H 273 H 316 H (70-110) mg/dL 07/30/24 07/30/24 07/30/24 Range/Units 00:02 05:46 06:01 WBC (3.8-10.6) k/uL RBC (4.30-5.90) m/uL Hgb (13.0-17.5) gm/dL Hct (39.0-53.0) % Neutrophils # (1.3-7.7) k/uL Lymphocytes # (1.0-4.8) k/uL Monocytes # (0-1.0) k/uL Sodium (137-145) mmol/L BUN (9-20) mg/dL Creatinine (0.66-1.25) mg/dL Glucose (74-99) mg/dL POC Glucose (mg/dL) 171 H 64 L 57 L (70-110) mg/dL 07/30/24 07/30/24 Range/Units 07:25 07:25 WBC 21.4 H (3.8-10.6) k/uL RBC 3.94 L (4.30-5.90) m/uL Hgb 11.7 L (13.0-17.5) gm/dL Hct 37.6 L (39.0-53.0) % Neutrophils # 19.1 H (1.3-7.7) k/uL Lymphocytes # 0.6 L (1.0-4.8) k/uL Monocytes # 1.4 H (0-1.0) k/uL Sodium 133 L (137-145) mmol/L BUN 68 H (9-20) mg/dL Creatinine 1.41 H (0.66-1.25) mg/dL Glucose 157 H (74-99) mg/dL POC Glucose (mg/dL) (70-110) mg/dL Assessment and Plan Assessment: #DARI secondary to ATN secondary to cardiorenal syndrome; renal function improving - currently stable, creatinine today 1.41. #Stage IIIa chronic kidney disease, baseline creatinine 1.3-1.5 #Hyponatremia secondary to hypervolemia and acute respiratory infection #Sepsis secondary to influenza type a pneumonia, s/p Tamiflu #Acute hypoxic respiratory failure secondary to above #HFrEF w/EF 45 to 50% #Type II NSTEMI Plan: -Patient appears to be euvolemic at this time. -Recheck labs in a.m. -Maintain fluid restriction 2000 cc -Avoid nephrotoxic agents -Stable for discharge from nephrology standpoint
--- NOTE | 2024-07-30 13:25 | P.PN ---
Subjective Progress Note Date: 07/30/24 Patient is a 64-year-old male with a PMH of A-fib on Eliquis, COPD not on home oxygen, type II DM, hypertension, hyperlipidemia, CKD stage IIIa who presents to the emergency room with complaints of shortness of breath and cough. Patient reports that over the past 1 week he has been experiencing gradually worsening persistent cough. Reports that the cough is nonproductive. He also reports exertional dyspnea. Denies experiencing fever or chills. Also denies chest discomfort, nausea, vomiting, abdominal pain, diarrhea. Chest x-ray in the emergency room revealed cardiomegaly along with findings of multifocal pneumonia. EKG revealed sinus rhythm at 93 bpm with intraventricular conduction delay as reviewed by me. Laboratory evaluation did reveal influenza type a positive, troponin 0.102, proBNP 12,900, lactic acid 3.3, glucose 228, BUN 25, creatinine 1.59, and WBC count 12.7 with neutrophilic predominance. Patient was reportedly severely hypoxic and in respiratory distress upon EMS arrival at the scene and was started on BiPAP. 07/21/2024 patient seen and examined at bedside. No acute events overnight. No new complaints. WBC 7.2, hemoglobin 14.1, platelet count 1 68,000, PT 12.1, INR 1.1, PTT 103.7, sodium 133, potassium 4.2, chloride 96, bicarb 27, BUN 44, creatinine 2.12, glucose 97. Troponin increased to 0.55 and has flattened. Chest x-ray done showed findings favor CHF exacerbation/fluid overload state. Areas of underlying acute infiltrate cannot be excluded. No significant change from most recent x-ray. 07/22/24 patient seen and examined at bedside. no new complaints. Currently comfortable on BiPAP. Labs today showed WBC 8.7, hemoglobin 12.8, MCV 93.7, platelet count 1 39,000, sodium 128, potassium 3.6, chloride 94, BUN 44, creatinine 1.99, calcium 7.8, glucose 113. ABG showed pH of 7.42, pCO2 38, pO2 74. Urinalysis showed +1 protein, moderate ketones, rare bacteria, 9 hyaline casts and rare mucus, negative nitrites, negative leukocyte esterase. Renal u ltrasound done on 07/21 showed negative for hydronephrosis, stones, bladder anechoic patient seen and examined at bedside. Given Ativan IV for anxiety overnight. No acute events. Still required BiPAP overnight. WBC 7.6, hemoglobin 13.9, platelet count 1 67,000, sodium 133, chloride 97, BUN 47, creatinine 1.54, glucose 132, calcium 8.5. Legionella Ag negative. Chest x-ray today showed continued worsening of bilateral diffuse acute infiltrates and/or edema, developing ARDS not included. 07/24/24 patient seen and examined at bedside. Still needed BiPAP overnight. No new complaints. No acute events overnight. Labs today show WBC 6.7, hemoglobin 13.6, platelet count 1 85,000, sodium 133, potassium 4, chloride 98, BUN 54, creatinine 1.44, glucose 178, A1c 6.2, calcium 8.9. Chest x-ray independently interpreted showed continued bilateral diffuse acute infiltrates and/or edema. No significant change from prior x-ray. 07/25/2024 patient seen and examined at bedside. No acute events overnight. No new complaints. Still requiring BiPAP overnight. Labs today showed WBC 12.5, hemoglobin 12.8, MCV 93.3, platelet count 219,000, sodium 132, potassium 3.9, chloride 97, bicarb 27, BUN 58, creatinine 1.4, glucose 236, calcium 9, magnesium 2. Chest x-ray independently interpreted showed similar diffuse patchy airspace opacities throughout the lungs likely representing acute infiltrates and/or edema. 07/26/2024 Patient seen and examined at bedside. No acute events overnight. Res piratory function similar to yesterday 07/27/2024 patient seen and examined at bedside. No acute events overnight. Still requiring BiPAP at night on FiO2 of 50%. Labs today showed WBC 16.7, hemoglobin 12.7, MCV 94.5, platelet count 210,000, sodium 133, potassium 3.8, chloride 98, bicarb 38, BUN 58, creatinine 1.3, glucose 196, calcium 8.8, magnesium 2. Chest x-ray today independently interpreted showed no changes in diffuse patchy airspace opacities throughout the lungs. 07/28/2024 patient seen and examined at bedside. No acute events overnight. Was able to tolerate oxygenation with high flow nasal cannula overnight. Labs today showed WBC 18.1, hemoglobin 13, platelet count 387,000, sodium 137, potassium 4.3, chloride 97, bicarb 32, BUN 60, creatinine 1.31, glucose 106, calcium 8.9. Chest x-ray today reported improved aeration of the lungs with persistent multifocal airspace opacities. 07/29/2024 patient seen and examined at bedside. Patient required 2 L nasal cannula overnight. CHOCO negative balance. Labs today showed WBC 19.6, hemoglobin 12.4, MCV 94.7, platelet count 3 99,000, sodium 133, potassium 4.3, chloride 99, bicarb 29, BUN 63, creatinine 1.2, glucose 130, calcium 8.8. Chest x-ray showed multifocal airspace opacities compatible with pulmonary edema and provide history. 07/30/2024 patient seen and examined at bedside. No acute events overnight. Required 1 to 2 L of oxygen on nasal cannula. Labs today showed WBC 21.4, hemoglobin 11.7, platelet count 382,000, sodium 133, potassium 4, chloride 98, bicarb 29, BUN 68, creatinine 1.41, glucose 157, calcium 8.5. Chest x-ray independently interpreted showed improved bilateral opacities Review of systems: Pertinent positives and negatives as discussed in HPI, a complete review of systems was performed and all other systems are negative. Pertinent imaging and labs reviewed. Physical examination: Vital signs reviewed General: non toxic, no distress, appears at stated age, ill-appearing, HFNC Derm: no unusual rashes/lesions, warm Head: atraumatic, normocephalic, symmetric Eyes: EOMI, anicteric sclera, pupils equal round reactive to light ENT: Nose and ears atraumatic Neck: No cervical lymphadenopathy, trachea midline, supple Mouth: no lip lesion, mucus membranes moist Cardiovascular: S1S2 reg, no murmur Lungs: bibasilar coarse rales, no accessory muscle use Abdominal: soft, nontender to palpation, no guarding Ext: muscle strength 5 out of 5 in all 4 extremities grossly, no gross muscle atrophy, no contractures, positive dorsalis pedis pulse bilateral, no edema Neuro: CN II-XI grossly intact, no gross focal neuro deficits Psych: Alert and oriented x3, appropriate affect and mood Assessment/Plan: 64-year-old male with history of COPD, A-fib on Eliquis and CKD stage III here for further management of cardiorenal syndrome and sepsis secon veto to pneumonia. Oxygenation requirements improved #. Sepsis secondary to influenza pneumonia, unable to rule out bacterial pneumonia #. Acute hypoxic respiratory failure, secondary to above #. Severe ARDS -P/F ratio 92 -Chest x-ray independently interpreted showed improved bilateral opacities -Procalcitonin normal at 0.33 -Legionella urine antigen neagtive -Supportive oxygen as needed -Discontinued Rocephin 2 g IVPB -Finished Tamiflu p.o. on 07/26 -Continue prednisone 40 mg p.o. daily -Blood culture negative -Monitor CBC -PT/OT consulted -WBC still up trending, consider discharging tomorrow if stable or downtrending #. Cardiorenal syndrome #. Heart failure with reduced ejection fraction EF of 45 to 50% (06/2024), not on GDMT #. Hyponatremia secondary to above #. Acute kidney injury on CKD, improving -Discontinued Lasix 40 mg IV. -Patient euvolemic today. Continue to monitor volume status. -Strict CHOCO's -Daily weights -Fluid restriction -Monitor BMP for electrolytes and renal function -Cardiology consulted -Metoprolol 25 mg daily. Initiate GDMT on discharge #. NSTEMI, type II -EKG revealed sinus rhythm at 93 bpm with intraventricular conduction delay on admission -Patient has no chest pain -Troponins flattened at 0.5 -IV heparin for 48 hours. Now discontinued -Cardiology initiated atorvastatin 40 mg daily #. Lactic acidosis, resovled Chronic conditions: #. A-fib #. COPD #. Type II DM #. Hypertension #. Hyperlipidemia -Continue Lisinopril 20mg daily -Continue Eliquis 5 mg twice daily, amiodarone 200 mg p.o. daily, metoprolol 25 mg daily -Hemoglobin A1c 6.2 -Glargine 20 units units twice daily -Initiate lispro 16 units 3 times daily for meal coverage -Not on home diabetes medications -Glucose Accu-Cheks ACHS -Continue insulin sliding scale ACHS -Monitor for hypoglycemia F: Restrict fluids due to 2 liters E: Monitor electrolytes particularly sodium and potassium N: Heart healthy diet A: Can ambulate with assistance DVT prophylaxis: Eliquis 5 mg p.o. daily Gabrielle Song MD PGY-1/Fer[employer] Engineer Dictation was produced using [employer] dictation software. please excuse any grammatical, word or spelling errors. I have seen and evaluated the patient today. Discussed with the resident and agree with the residents finding and plan as documented in the resident's note. Changes highlighted in blue font. t Objective - Vital Signs Vital signs: Vital Signs Temp 98.5 F 07/30/24 04:04 Pulse 61 07/30/24 04:04 Resp 16 07/30/24 04:04 BP 128/68 07/30/24 04:04 Pulse Ox 88 L 07/30/24 04:04 FiO2 50 07/28/24 00:32 Intake & Output 07/29/24 07/30/24 07/30/24 18:59 06:59 18:59 Intake Total 1194 Output Total 800 Balance 394 Weight 77 kg Intake: Oral 1194 Output: Urine 800 Other: Voiding Method Bedside Commode Urinal - Labs CBC & Chem 7: 07/30/24 07:25 07/30/24 07:25 Labs: Abnormal Lab Results - Last 24 Hours (Table) 07/29/24 07/29/24 07/29/24 Range/Units 08:01 08:01 11:54 WBC 19.6 H (3.8-10.6) k/uL RBC 4.12 L (4.30-5.90) m/uL Hgb 12.4 L (13.0-17.5) gm/dL Neutrophils # 18.4 H (1.3-7.7) k/uL Lymphocytes # 0.3 L (1.0-4.8) k/uL Sodium 133 L (137-145) mmol/L BUN 63 H (9-20) mg/dL Glucose 130 H (74-99) mg/dL POC Glucose (mg/dL) 157 H (70-110) mg/dL 07/29/24 07/29/24 07/30/24 Range/Units 17:05 20:18 00:02 WBC (3.8-10.6) k/uL RBC (4.30-5.90) m/uL Hgb (13.0-17.5) gm/dL Neutrophils # (1.3-7.7) k/uL Lymphocytes # (1.0-4.8) k/uL Sodium (137-145) mmol/L BUN (9-20) mg/dL Glucose (74-99) mg/dL POC Glucose (mg/dL) 273 H 316 H 171 H (70-110) mg/dL 07/30/24 07/30/24 Range/Units 05:46 06:01 WBC (3.8-10.6) k/uL RBC (4.30-5.90) m/uL Hgb (13.0-17.5) gm/dL Neutrophils # (1.3-7.7) k/uL Lymphocytes # (1.0-4.8) k/uL Sodium (137-145) mmol/L BUN (9-20) mg/dL Glucose (74-99) mg/dL POC Glucose (mg/dL) 64 L 57 L (70-110) mg/dL
--- NOTE | 2024-07-30 14:43 | P.PN ---
Subjective Progress Note Date: 07/30/24 Principal diagnosis: Pneumonia, respiratory failure, CHF. This is a 64-year-old male patient with chronic and ongoing tobacco dependence, atrial fibrillation, diabetes mellitus, hypertension, hyperlipidemia who has a 1 week history of increasing shortness of breath, cough congestion fever and chills. He came into the emergency room last evening with severe shortness of breath requiring BiPAP support which was 14/5 and 50% FiO2. Chest x-ray revealed cardiomegaly and airspace disease most notably in the left mid lower lung zone suggestive of multifocal pneumonia and possible fluid volume overload. White count 10.5. Hemoglobin 14.3. Platelets 156. Sodium 135. Potassium 4.3. Bicarb 27. BUN 29. Creatinine 1.86. Glucose 174. Troponins 0.327, 0.550, 0.5-2. He is initiated on a heparin drip. proBNP was 13,000. Procalcitonin 2.38. He did test positive for influenza A. Initiated on Tamiflu. Initiated on ceftriaxone. He is seen today in consultation in the emergency department. He is currently sitting up on the stretcher. Awake and alert. He is on 6 L high flow nasal cannula. He is breathing a bit easier today compared to yesterday. Still with a loose nonproductive cough. He did have a Tmax of 102.3. Current temperature 99.1. He is hemodynamically stable. The patient is seen today July 21, 2024 in follow-up on the regular medical floor. He is awake and alert in no acute distress. Doing slightly better today compared to yesterday. He is still requiring 10 L high flow nasal cannula. Chest x-ray continues to show evidence of fluid volume overload/CHF. Echocardiogram reveals mildly impaired left ventricular systolic function with ejection fraction of 45 to 50%. Moderately reduced global LV function. Blood culture is pending. White count 7.2. Hemoglobin 14.1. Platelets 168. Sodium 133. Potassium 4.2. Bicarb 27. BUN 44. Creatinine 2.12. Stool for occult blood was negative. Since. Anticoagulated with Eliquis. Antibiotics in the form of ceftriaxone and azithromycin. He is continued on Tamiflu. Lasix discontinued per cardiology. The patient is seen today July 22, 2024 in follow-up on the regular medical floor. He is currently on BiPAP 14/5 and 80% FiO2. He was trialed on 12 L high flow earlier this morning with O2 saturations in the 70s and 80s. Arterial blood gases on the 80% FiO2 revealed a PaO2 of 74, pCO2 of 38 and a pH of 7.42. A chest x-ray revealed similar findings of persistent cardiomegaly with bilateral multifocal acute infiltrates and/or edema. He received Lasix 40 mg IVP x 1. Blood culture reveals no growth to date. White count 8.7. Hemoglobin 12.8. Platelets 139. Sodium 128. Potassium 3.6. Bicarb 29. BUN 45. Creatinine 1.99. He is continued on DuoNeb inhalations. Continued on Tamiflu. Initiated on Solu-Cortef. Remains on antibiotics in the form of ceftriaxone and azithromycin. Anticoagulated with Eliquis. Currently on a 1500 mL fluid restriction. Nephrology is following. SAGAR inhibitor remains on hold. The patient is seen today July 23, 2024 in follow-up on the regular medical floor. He is currently sitting up in bed. Still requiring BiPAP support currently 14/5 and 60% FiO2. He remains on DuoNeb and elations, Solu-Cortef, Tamiflu. Anticoagulated with Eliquis. Antibiotics in the form of ceftriaxone. Blood culture reveals no growth. White count 7.6. Hemoglobin 13.3. Platelets 167. Sodium 133. Potassium 3.9. Bicarb 28. BUN 47. Creatinine 1.54. Glucose 132. Chest x-ray continues to show worsening bilateral diffuse acute infiltrates and/or edema. Developing ARDS is not excluded. He is given Lasix 40 mg IVP today. Currently in a negative balance. The patient is seen today July 24, 2024 in follow-up on the regular medical floor. Resting in bed. Currently afebrile. Hemodynamically stable. He continues to require BiPAP support 10/5 and 50% FiO2. He has been tolerating some time off on 15 L high flow nasal cannula with O2 saturations in the upper 80s. Blood culture revealed no growth. White count 6.7. Hemoglobin 13.6. Platelets 185. Sodium 133. Potassium 4.0. Bicarb 26. BUN 54. Creatinine 1.44. Glucose 178. He is continued on DuoNeb inhalations, Pulmicort and Perforomist inhalations, Solu-Medrol. Anticoagulated with Eliquis. Continued on Tamiflu. Completed a course of ceftriaxone. Received Lasix 40 mg IVP x 1 again today. Remains in a negative balance. X-ray continues to show bilateral diffuse acute infiltrates and/or edema. ARDS is not excluded. No significant change. The patient is seen today July 25, 2024 in follow-up on the selective care unit. He is awake and alert in no acute distress. He is sitting up in bed. He is currently on 15 L high flow nasal cannula. He has been off the BiPAP since earlier this morning which was set at 14/5 and 50% FiO2. He has been slow to progress. He did receive Lasix 40 mg IVP x 1 again today. Blood culture revealed no growth. White count 12.5. Hemoglobin 12.8. Platelets 219. Sodium 132. Potassium 3.9. Bicarb 27. BUN 58. Creatinine 1.40. Glucose 236. He remains on DuoNeb inhalations, Pulmicort and performance and elations, IV Solu- Medrol. He is anticoagulated with Eliquis. Remains on antibiotics in the form of ceftriaxone. Chest x-ray continues to show similar diffuse patchy airspace opacities throughout the lungs likely acute infiltrates and/or edema. Developing ARDS is not excluded. The patient is seen today July 26, 2024 in follow-up on the selective care unit. He is awake and alert in no acute distress. Sitting up in bed. Maintaining O2 saturations in the 90s on 12 L high flow nasal cannula. He did wear BiPAP last night 14/5 and 50% FiO2. He has been slow to progress but is feeling better tod ay compared to yesterday. Chest x-ray shows similar diffuse patchy airspace opacities representing acute infiltrates versus edema versus ARDS. Remains on IV diuretics. Currently in a negative balance. White count 14.4. Hemoglobin 12.7. Platelets 242. Sodium 133. Potassium 3.9. Bicarb 27. BUN 53. Creatinine 1.31. Glucose 238. He remains on DuoNeb inhalations, Pulmicort and Perforomist inhalations, IV Solu-Medrol. He is anticoagulated with Eliquis. Remains on ceftriaxone. The patient is seen today July 27, 2024 in follow-up on the selective care unit. He is awake. Sitting up in bed. Maintaining good O2 saturations in the 90s now on 10 L high flow nasal cannula. Did wear the BiPAP from midnight to about 4 AM. Settings are 14/5 and 50% FiO2. Procalcitonin 0.33. He remains on DuoNeb inhalations, Pulmicort and Perforomist inhalations, Solu-Medrol. Remains on IV diuretics. Anticoagulated with Eliquis. Currently in a -500 mL balance. Progress note dated July 28, 2024. 64-year-old male admitted with a diagnosis of pneumonia, CHF, and acute respiratory failure. He is currently on 6 L nasal cannula. He does have BiPAP in the room, with settings of 14/5, 50%. He is not receiving any IV fluids. He is awake and alert. No distress. Current labs include a white count 18.1, hemoglobin 13, hematocrit 40.8, and platelet count of 387,000. Sodium 137, potassium 4.3, chlorides 97, CO2 32, BUN 60, and creatinine 1.31. Glucose is 170. Calcium 8.9. Chest x-ray shows improved aeration of the lungs bilaterally. Progress note dated July 30, 2024. 64-year-old male seen today in room 378. The patient is on 2 L of oxygen. No IV fluids. Chest x-ray continues show bilateral infiltrates, but, his chest x- ray is improved. Clinically, the patient appears to be doing much better, and is much more stable. He is not having any significant shortness of breath, co ugh, wheezing, chest tightness, or phlegm production. White count 21.4, hemoglobin 11.7, hematocrit 37.6, and platelet count 382,000. Sodium 133, potassium 4, chloride 98, CO2 29, BUN 68, creatinine 1.41. Glucose is 212. Calcium is 8.5. Chest x-ray again shows diffuse bilateral infiltrates. Objective - Vital Signs Vital signs: Vital Signs Temp 98.5 F 07/30/24 04:04 Pulse 94 07/30/24 12:25 Resp 18 07/30/24 09:46 BP 135/61 07/30/24 12:25 Pulse Ox 86 L 07/30/24 10:27 FiO2 50 07/28/24 00:32 Intake & Output 07/29/24 07/30/24 07/30/24 18:59 06:59 18:59 Intake Total 1194 240 Output Total 800 300 Balance 394 -60 Weight 77 kg Intake: Oral 1194 240 Output: Urine 800 300 Other: Voiding Method Bedside Commode Urinal - Exam No acute distress, oriented 3. Currently on nasal O2 at 2 L. HEENT examination is grossly unremarkable. Mucous membranes are moist. No oral lesions. Neck supple. Full range of motion. No adenopathy thyromegaly or neck vein distention. Cardiovascular examination reveals regular rhythm rate. S1-S2 normal. No S3 or S4. No discernible murmur noted. Lungs reveal bibasilar crackles. No wheezes. No rhonchi. Breath sounds are equal bilaterally. Abdomen soft bowel sounds are heard. No masses or tenderness. Extremities are intact. No cyanosis or clubbing. There is 1+ edema. Skin is without rash or lesion. Neurologic examination is brief but nonfocal. - Labs CBC & Chem 7: 07/30/24 07:07/30/24 07:25 Labs: Abnormal Lab Results - Last 24 Hours (Table) 07/29/24 07/29/24 07/30/24 Range/Units 17:05 20:18 00:02 WBC (3.8-10.6) k/uL RBC (4.30-5.90) m/uL Hgb (13.0-17.5) gm/dL Hct (39.0-53.0) % Neutrophils # (1.3-7.7) k/uL Lymphocytes # (1.0-4.8) k/uL Monocytes # (0-1.0) k/uL Sodium (137-145) mmol/L BUN (9-20) mg/dL Creatinine (0.66-1.25) mg/dL Glucose (74-99) mg/dL POC Glucose (mg/dL) 273 H 316 H 171 H (70-110) mg/dL 07/30/24 07/30/24 07/30/24 Range/Units 05:46 06:01 07:25 WBC 21.4 H (3.8-10.6) k/uL RBC 3.94 L (4.30-5.90) m/uL Hgb 11.7 L (13.0-17.5) gm/dL Hct 37.6 L (39.0-53.0) % Neutrophils # 19.1 H (1.3-7.7) k/uL Lymphocytes # 0.6 L (1.0-4.8) k/uL Monocytes # 1.4 H (0-1.0) k/uL Sodium (137-145) mmol/L BUN (9-20) mg/dL Creatinine (0.66-1.25) mg/dL Glucose (74-99) mg/dL POC Glucose (mg/dL) 64 L 57 L (70-110) mg/dL 07/30/24 07/30/24 07/30/24 Range/Units 07:25 09:54 11:51 WBC (3.8-10.6) k/uL RBC (4.30-5.90) m/uL Hgb (13.0-17.5) gm/dL Hct (39.0-53.0) % Neutrophils # (1.3-7.7) k/uL Lymphocytes # (1.0-4.8) k/uL Monocytes # (0-1.0) k/uL Sodium 133 L (137-145) mmol/L BUN 68 H (9-20) mg/dL Creatinine 1.41 H (0.66-1.25) mg/dL Glucose 157 H (74-99) mg/dL POC Glucose (mg/dL) 242 H 212 H (70-110) mg/dL Assessment and Plan Assessment: Acute hypoxemic respiratory failure secondary to an acute exacerbation of chronic obstructive pulmonary disease complicated by influenza A and underlying pneumonia. Acute influenza A infection. Acute exacerbation of chronic systolic congestive heart failure with an ejection fraction now 45-50%. Troponin leak possible non-ST segment elevation myocardial infarction. Acute kidney injury. History of atrial fibrillation with previous cardioversion. Chronic tobacco dependence with suspected underlying COPD. Hypertension. Hyperlipidemia. Diabetes mellitus, type II. Plan: Plan dated July 28, 2024. The patient is seen today in room 378. He is currently on 6 L. Chest x-ray is clearly improved. We will continue to follow make recommendations where appropriate. All labs, x-rays, medications are reviewed. The patient is not receiving any IV fluids. Yesterday, he was on 10 L high flow. BiPAP is in the room, with settings of 14/5 and 50%. We will continue to follow make recommendations where appropriate. The patients overall prognosis remains guarded. Dictation was produced using [employer] software. Please excuse any grammatical, word or spelling errors. Plan dated July 30, 2024. The patient appears to be doing relatively well. The patient is stable. He denies any increasing or worsening shortness of breath, cough, wheezing, chest tightness, or phlegm production. The patient's chest x-ray has been reviewed. All labs, x-rays, and medications are reviewed. The patient has been weaned down to 2 L. We will continue to follow. Prognosis is guarded. No additional recommendations at this time. Dictation was produced using [employer] software. Please excuse any grammatical, word or spelling errors. Time with Patient: Less than 30
[2024-07-30 16:53] LABS: Glucose,Whole Blood 126 mg/dL (70-110)
[2024-07-30 19:48] LABS: Glucose,Whole Blood 240 mg/dL (70-110)
[2024-07-30] MEDS: INSULIN GLARGINE (LANTUS) 100 UNIT/ML SYR SQ SCH (20:28)
[2024-07-30 21:46] VITALS: RESP 20
[2024-07-30] MEDS: LORazepam 1 MG/0.5 ML VIAL IV PRN (23:09)
[2024-07-31 06:05] LABS: Glucose,Whole Blood 114 mg/dL (70-110)
[2024-07-31 07:07] LABS: Basophils % (A) 0 %; Eosinophils % (A) 0 %; HCT 35.7 % (39.0-53.0); HGB 11.1 gm/dL (13.0-17.5); Lymphocytes # (A) 0.8 k/uL (1.0-4.8); Lymphocytes % (A) 5 %; MCH 29.4 pg (25.0-35.0); MCV 94.8 fL (80.0-100.0); Mean Platelet Volume 9.5; Monocytes # (A) 0.9 k/uL (0-1.0); Monocytes % (A) 5 %; Neutrophils # (A) 14.6 k/uL (1.3-7.7); Neutrophils % (A) 88 %; Platelet Count 389 k/uL (150-450); RBC 3.76 m/uL (4.30-5.90); RDW 13.1 % (11.5-15.5); WBC 16.6 k/uL (3.8-10.6)
[2024-07-31 07:28] LABS: African American GFR (CKD) 69 (>60 ml/min/1.73 sqM); Anion Gap 4 mmol/L; Blood Urea Nitrogen 67 mg/dL (9-20); Calcium 8.7 mg/dL (8.4-10.2); Carbon Dioxide 31 mmol/L (22-30); Chloride 99 mmol/L (98-107); Glucose 78 mg/dL (74-99); Non-African American GFR(CKD) 60 (>60 ml/min/1.73 sqM); Potassium 4.1 mmol/L (3.5-5.1); Sodium 134 mmol/L (137-145)
[2024-07-31] MEDS: INSULIN LISPRO (HumaLOG) 100 UNIT/ML 10 mL VL SQ SCH (07:50)
[2024-07-31 09:10] VITALS: BP 130/71; TEMP 97.7
--- NOTE | 2024-07-31 10:43 | P.PN ---
Subjective Progress Note Date: 07/31/24 Patient seen for follow-up for DARI and hyponatremia. Renal function and sodium level remained stable. Saturating the 90%'s on 2 L nasal cannula. Creatinine this morning 1.41 and BUN 68. Sodium this morning 134, stable. No active complaints. Oral intake fair. Objective - Vital Signs Vital signs: Vital Signs Temp 97.7 F 07/31/24 09:07 Pulse 75 07/31/24 09:07 Resp 20 07/31/24 09:07 BP 130/71 07/31/24 09:07 Pulse Ox 90 L 07/31/24 09:07 FiO2 50 07/28/24 00:32 Intake & Output 07/30/24 07/31/24 07/31/24 18:59 06:59 18:59 Intake Total 920 452 240 Output Total 475 750 Balance 445 -298 240 Weight 97.5 kg Intake: IV 10 Invasive Line 4 10 Oral 920 442 240 Output: Urine 475 750 Other: Voiding Method Bedside Commode Urinal # Voids 1 0 # Bowel Movements 0 - Exam Patient is awake, comfortable, no acute distress. Heart: S1 and S2 heard Lungs: Bilateral breath sounds are heard Abdomen: Soft and nontender Lower extremities: No edema COMBER SETTER: grossly intact - Labs CBC & Chem 7: 07/31/24 06:42 07/31/24 06:42 Labs: Abnormal Lab Results - Last 24 Hours (Table) 07/30/24 07/30/24 07/30/24 Range/Units 09:54 11:51 16:52 WBC (3.8-10.6) k/uL RBC (4.30-5.90) m/uL Hgb (13.0-17.5) gm/dL Hct (39.0-53.0) % Neutrophils # (1.3-7.7) k/uL Lymphocytes # (1.0-4.8) k/uL Sodium (137-145) mmol/L Carbon Dioxide (22-30) mmol/L BUN (9-20) mg/dL POC Glucose (mg/dL) 242 H 212 H 126 H (70-110) mg/dL 07/30/24 07/31/24 07/31/24 Range/Units 19:46 06:04 06:42 WBC 16.6 H (3.8-10.6) k/uL RBC 3.76 L (4.30-5.90) m/uL Hgb 11.1 L (13.0-17.5) gm/dL Hct 35.7 L (39.0-53.0) % Neutrophils # 14.6 H (1.3-7.7) k/uL Lymphocytes # 0.8 L (1.0-4.8) k/uL Sodium (137-145) mmol/L Carbon Dioxide (22-30) mmol/L BUN (9-20) mg/dL POC Glucose (mg/dL) 240 H 114 H (70-110) mg/dL 07/31/24 Range/Units 06:42 WBC (3.8-10.6) k/uL RBC (4.30-5.90) m/uL Hgb (13.0-17.5) gm/dL Hct (39.0-53.0) % Neutrophils # (1.3-7.7) k/uL Lymphocytes # (1.0-4.8) k/uL Sodium 134 L (137-145) mmol/L Carbon Dioxide 31 H (22-30) mmol/L BUN 67 H (9-20) mg/dL POC Glucose (mg/dL) (70-110) mg/dL Assessment and Plan Assessment: #DARI secondary to ATN secondary to cardiorenal syndrome; renal function improving - currently stable, creatinine today 1.25. #Stage IIIa chronic kidney disease, baseline creatinine 1.3-1.5 #Hyponatremia secondary to hypervolemia and acute respiratory infection #Sepsis secondary to influenza type a pneumonia, s/p Tamiflu #Acute hypoxic respiratory failure secondary to above #HFrEF w/EF 45 to 50% #Type II NSTEMI Plan: -Patient appears to be euvolemic at this time. -Recheck labs in a.m. -Maintain fluid restriction 2000 cc -Avoid nephrotoxic agents -Stable for discharge from nephrology standpoint
[2024-07-31 11:41] VITALS: PULSE 74
[2024-07-31 12:09] LABS: Glucose,Whole Blood 84 mg/dL (70-110)
--- NOTE | 2024-07-31 14:42 | P.PN ---
Subjective Progress Note Date: 07/31/24 Principal diagnosis: Pneumonia, respiratory failure, CHF. This is a 64-year-old male patient with chronic and ongoing tobacco dependence, atrial fibrillation, diabetes mellitus, hypertension, hyperlipidemia who has a 1 week history of increasing shortness of breath, cough congestion fever and chills. He came into the emergency room last evening with severe shortness of breath requiring BiPAP support which was 14/5 and 50% FiO2. Chest x-ray revealed cardiomegaly and airspace disease most notably in the left mid lower lung zone suggestive of multifocal pneumonia and possible fluid volume overload. White count 10.5. Hemoglobin 14.3. Platelets 156. Sodium 135. Potassium 4.3. Bicarb 27. BUN 29. Creatinine 1.86. Glucose 174. Troponins 0.327, 0.550, 0.5-2. He is initiated on a heparin drip. proBNP was 13,000. Procalcitonin 2.38. He did test positive for influenza A. Initiated on Tamiflu. Initiated on ceftriaxone. He is seen today in consultation in the emergency department. He is currently sitting up on the stretcher. Awake and alert. He is on 6 L high flow nasal cannula. He is breathing a bit easier today compared to yesterday. Still with a loose nonproductive cough. He did have a Tmax of 102.3. Current temperature 99.1. He is hemodynamically stable. The patient is seen today July 21, 2024 in follow-up on the regular medical floor. He is awake and alert in no acute distress. Doing slightly better today compared to yesterday. He is still requiring 10 L high flow nasal cannula. Chest x-ray continues to show evidence of fluid volume overload/CHF. Echocardiogram reveals mildly impaired left ventricular systolic function with ejection fraction of 45 to 50%. Moderately reduced global LV function. Blood culture is pending. White count 7.2. Hemoglobin 14.1. Platelets 168. Sodium 133. Potassium 4.2. Bicarb 27. BUN 44. Creatinine 2.12. Stool for occult blood was negative. Since. Anticoagulated with Eliquis. Antibiotics in the form of ceftriaxone and azithromycin. He is continued on Tamiflu. Lasix discontinued per cardiology. The patient is seen today July 22, 2024 in follow-up on the regular medical floor. He is currently on BiPAP 14/5 and 80% FiO2. He was trialed on 12 L high flow earlier this morning with O2 saturations in the 70s and 80s. Arterial blood gases on the 80% FiO2 revealed a PaO2 of 74, pCO2 of 38 and a pH of 7.42. A chest x-ray revealed similar findings of persistent cardiomegaly with bilateral multifocal acute infiltrates and/or edema. He received Lasix 40 mg IVP x 1. Blood culture reveals no growth to date. White count 8.7. Hemoglobin 12.8. Platelets 139. Sodium 128. Potassium 3.6. Bicarb 29. BUN 45. Creatinine 1.99. He is continued on DuoNeb inhalations. Continued on Tamiflu. Initiated on Solu-Cortef. Remains on antibiotics in the form of ceftriaxone and azithromycin. Anticoagulated with Eliquis. Currently on a 1500 mL fluid restriction. Nephrology is following. SAGAR inhibitor remains on hold. The patient is seen today July 23, 2024 in follow-up on the regular medical floor. He is currently sitting up in bed. Still requiring BiPAP support currently 14/5 and 60% FiO2. He remains on DuoNeb and elations, Solu-Cortef, Tamiflu. Anticoagulated with Eliquis. Antibiotics in the form of ceftriaxone. Blood culture reveals no growth. White count 7.6. Hemoglobin 13.3. Platelets 167. Sodium 133. Potassium 3.9. Bicarb 28. BUN 47. Creatinine 1.54. Glucose 132. Chest x-ray continues to show worsening bilateral diffuse acute infiltrates and/or edema. Developing ARDS is not excluded. He is given Lasix 40 mg IVP today. Currently in a negative balance. The patient is seen today July 24, 2024 in follow-up on the regular medical floor. Resting in bed. Currently afebrile. Hemodynamically stable. He continues to require BiPAP support 10/5 and 50% FiO2. He has been tolerating some time off on 15 L high flow nasal cannula with O2 saturations in the upper 80s. Blood culture revealed no growth. White count 6.7. Hemoglobin 13.6. Platelets 185. Sodium 133. Potassium 4.0. Bicarb 26. BUN 54. Creatinine 1.44. Glucose 178. He is continued on DuoNeb inhalations, Pulmicort and Perforomist inhalations, Solu-Medrol. Anticoagulated with Eliquis. Continued on Tamiflu. Completed a course of ceftriaxone. Received Lasix 40 mg IVP x 1 again today. Remains in a negative balance. X-ray continues to show bilateral diffuse acute infiltrates and/or edema. ARDS is not excluded. No significant change. The patient is seen today July 25, 2024 in follow-up on the selective care unit. He is awake and alert in no acute distress. He is sitting up in bed. He is currently on 15 L high flow nasal cannula. He has been off the BiPAP since earlier this morning which was set at 14/5 and 50% FiO2. He has been slow to progress. He did receive Lasix 40 mg IVP x 1 again today. Blood culture revealed no growth. White count 12.5. Hemoglobin 12.8. Platelets 219. Sodium 132. Potassium 3.9. Bicarb 27. BUN 58. Creatinine 1.40. Glucose 236. He remains on DuoNeb inhalations, Pulmicort and performance and elations, IV Solu- Medrol. He is anticoagulated with Eliquis. Remains on antibiotics in the form of ceftriaxone. Chest x-ray continues to show similar diffuse patchy airspace opacities throughout the lungs likely acute infiltrates and/or edema. Developing ARDS is not excluded. The patient is seen today July 26, 2024 in follow-up on the selective care unit. He is awake and alert in no acute distress. Sitting up in bed. Maintaining O2 saturations in the 90s on 12 L high flow nasal cannula. He did wear BiPAP last night 14/5 and 50% FiO2. He has been slow to progress but is feeling better tod ay compared to yesterday. Chest x-ray shows similar diffuse patchy airspace opacities representing acute infiltrates versus edema versus ARDS. Remains on IV diuretics. Currently in a negative balance. White count 14.4. Hemoglobin 12.7. Platelets 242. Sodium 133. Potassium 3.9. Bicarb 27. BUN 53. Creatinine 1.31. Glucose 238. He remains on DuoNeb inhalations, Pulmicort and Perforomist inhalations, IV Solu-Medrol. He is anticoagulated with Eliquis. Remains on ceftriaxone. The patient is seen today July 27, 2024 in follow-up on the selective care unit. He is awake. Sitting up in bed. Maintaining good O2 saturations in the 90s now on 10 L high flow nasal cannula. Did wear the BiPAP from midnight to about 4 AM. Settings are 14/5 and 50% FiO2. Procalcitonin 0.33. He remains on DuoNeb inhalations, Pulmicort and Perforomist inhalations, Solu-Medrol. Remains on IV diuretics. Anticoagulated with Eliquis. Currently in a -500 mL balance. Progress note dated July 28, 2024. 64-year-old male admitted with a diagnosis of pneumonia, CHF, and acute respiratory failure. He is currently on 6 L nasal cannula. He does have BiPAP in the room, with settings of 14/5, 50%. He is not receiving any IV fluids. He is awake and alert. No distress. Current labs include a white count 18.1, hemoglobin 13, hematocrit 40.8, and platelet count of 387,000. Sodium 137, potassium 4.3, chlorides 97, CO2 32, BUN 60, and creatinine 1.31. Glucose is 170. Calcium 8.9. Chest x-ray shows improved aeration of the lungs bilaterally. Progress note dated July 30, 2024. 64-year-old male seen today in room 378. The patient is on 2 L of oxygen. No IV fluids. Chest x-ray continues show bilateral infiltrates, but, his chest x- ray is improved. Clinically, the patient appears to be doing much better, and is much more stable. He is not having any significant shortness of breath, co ugh, wheezing, chest tightness, or phlegm production. White count 21.4, hemoglobin 11.7, hematocrit 37.6, and platelet count 382,000. Sodium 133, potassium 4, chloride 98, CO2 29, BUN 68, creatinine 1.41. Glucose is 212. Calcium is 8.5. Chest x-ray again shows diffuse bilateral infiltrates. Progress note dated July 31, 2024. 64-year-old male seen today in room 378. The patient is currently on 2 L of oxygen. He is awake and alert. No distress. Today's labs include a white count of 16.6, hemoglobin 9.1, hematocrit 35.7, and a platelet count of 389,000. Sodium 134, potassium 4.1, chloride 79, CO2 31, BUN 67, and creatinine 1.25. Glucose was 84. Calcium was 8.7. Chest x-ray, has continued to show improvement. His last chest x-ray was done on July 30, 2024. Objective - Vital Signs Vital signs: Vital Signs Temp 97.7 F 07/31/24 09:07 Pulse 74 07/31/24 11:49 Resp 20 07/31/24 09:07 BP 130/71 07/31/24 09:07 Pulse Ox 90 L 07/31/24 09:07 FiO2 50 07/28/24 00:32 Intake & Output 07/30/24 07/31/24 07/31/24 18:59 06:59 18:59 Intake Total 920 452 240 Output Total 475 750 Balance 445 -298 240 Weight 97.5 kg Intake: IV 10 Invasive Line 4 10 Oral 920 442 240 Output: Urine 475 750 Other: Voiding Method Bedside Commode Urinal # Voids 1 0 # Bowel Movements 0 - Exam No acute distress, oriented 3. Currently on nasal O2 at 2 L. HEENT examination is grossly unremarkable. Mucous membranes are moist. No oral lesions. Neck supple. Full range of motion. No adenopathy thyromegaly or neck vein distention. Cardiovascular examination reveals regular rhythm rate. S1-S2 normal. No S3 or S4. No discernible murmur noted. Lungs reveal bibasilar crackles. No wheezes. No rhonchi. Breath sounds are equal bilaterally. Abdomen soft bowel sounds are heard. No masses or tenderness. Extremities are intact. No cyanosis or clubbing. There is 1+ edema. Skin is without rash or lesion. Neurologic examination is brief but nonfocal. - Labs CBC & Chem 7: 07/31/24 06:42 07/31/24 06:42 Labs: Abnormal Lab Results - Last 24 Hours (Table) 07/30/24 07/30/24 07/31/24 Range/Units 16:52 19:46 06:04 WBC (3.8-10.6) k/uL RBC (4.30-5.90) m/uL Hgb (13.0-17.5) gm/dL Hct (39.0-53.0) % Neutrophils # (1.3-7.7) k/uL Lymphocytes # (1.0-4.8) k/uL Sodium (137-145) mmol/L Carbon Dioxide (22-30) mmol/L BUN (9-20) mg/dL POC Glucose (mg/dL) 126 H 240 H 114 H (70-110) mg/dL 03/07/25 03/07/25 Range/Units 06:42 06:42 WBC 16.6 H (3.8-10.6) k/uL RBC 3.76 L (4.30-5.90) m/uL Hgb 11.1 L (13.0-17.5) gm/dL Hct 35.7 L (39.0-53.0) % Neutrophils # 14.6 H (1.3-7.7) k/uL Lymphocytes # 0.8 L (1.0-4.8) k/uL Sodium 134 L (137-145) mmol/L Carbon Dioxide 31 H (22-30) mmol/L BUN 67 H (9-20) mg/dL POC Glucose (mg/dL) (70-110) mg/dL Assessment and Plan Assessment: Acute hypoxemic respiratory failure secondary to an acute exacerbation of chronic obstructive pulmonary disease complicated by influenza A and underlying pneumonia. Acute influenza A infection. Acute exacerbation of chronic systolic congestive heart failure with an ejection fraction now 45-50%. Troponin leak possible non-ST segment elevation myocardial infarction. Acute kidney injury. History of atrial fibrillation with previous cardioversion. Chronic tobacco dependence with suspected underlying COPD. Hypertension. Hyperlipidemia. Diabetes mellitus, type II. Plan: Plan dated July 28, 2024. The patient is seen today in room 378. He is currently on 6 L. Chest x-ray is clearly improved. We will continue to follow make recommendations where appropriate. All labs, x-rays, medications are reviewed. The patient is not receiving any IV fluids. Yesterday, he was on 10 L high flow. BiPAP is in the room, with settings of 14/5 and 50%. We will continue to follow make recommendations where appropriate. The patients overall prognosis remains guarded. Dictation was produced using [employer] software. Please excuse any grammatical, word or spelling errors. Plan dated July 30, 2024. The patient appears to be doing relatively well. The patient is stable. He denies any increasing or worsening shortness of breath, cough, wheezing, chest tightness, or phlegm production. The patient's chest x-ray has been reviewed. All labs, x-rays, and medications are reviewed. The patient has been weaned down to 2 L. We will continue to follow. Prognosis is guarded. No additional recommendations at this time. Dictation was produced using [employer] software. Please excuse any grammatical, word or spelling errors. Plan dated July 31, 2024. The patient continues to show improvement. He is currently on 2 L. Saturations are excellent. From my perspective, the patient could be considered for possible discharge. Labs, x-rays, and all medications have been reviewed. We will continue to follow patient, should he not be discharged. The patient's overall prognosis remains guarded. The patient denies any shortness of breath, cough, wheezing, chest tightness, or phlegm production. The patient also denies any chest pain or pressure. Dictation was produced using [employer] software. Please excuse any grammatical, word or spelling errors. Time with Patient: Less than 30
--- NOTE | 2024-07-31 15:01 | P.DS ---
Providers Date of admission: 07/20/24 00:25 Attending physician: Alan Munoz MD Consults: 07/20/24 00:25 Consult Physician Routine Consulting Provider: Stefano Goode Consult Reason/Comments: hypoxia Do you want consulting provider notified?: Yes 07/20/24 03:54 Consult Physician Urgent Consulting Provider: Yonathan Guevara Consult Reason/Comments: nstemi Do you want consulting provider notified?: Yes 07/21/24 11:59 Consult Physician Routine Consulting Provider: Haydee Goetz Consult Reason/Comments: DARI Do you want consulting provider notified?: Yes Primary care physician: Physician Nonstaff Hospital Course: Hospital Course: Patient is a 64-year-old male with a PMH of A-fib on Eliquis, COPD not on home oxygen, type II DM, hypertension, hyperlipidemia, CKD stage IIIa who presents to the emergency room with complaints of shortness of breath and cough. Chest x-ray in the emergency room revealed cardiomegaly along with findings of multifocal pneumonia. EKG revealed sinus rhythm at 93 bpm with intraventricular conduction delay as reviewed by me. Laboratory evaluation did reveal influenza type a positive, troponin 0.102, proBNP 12,900, lactic acid 3.3, glucose 228, BUN 25, creatinine 1.59, and WBC count 12.7 with neutrophilic predominance. Patient was reportedly severely hypoxic and in respiratory distress upon EMS arrival at the scene and was started on BiPAP. Patient was admitted for evaluation of sepsis and acute hypoxic respiratory failure secondary to influenza pneumonia. Ordered Tamiflu, DuoNebs, supplemental oxygen, blood and sputum cultures, procalcitonin to rule out bacterial infection. Troponins trending upward on admission and cardiology was consulted echocardiogram ordered. IV heparin initiated for 48 hours. Echocardiogram showed left ejection fraction estimated at 45 to 50% with moderately increased septal wall thickness and moderately reduced global left ventricular systolic function, biatrial dilatation, moderate tricuspid regurgitation. Lasix for diuresis, strict CHOCO's, fluid restriction ordered. Patient noted to have increasing creatinine while on hospital stay and Lasix was slowly discontinued. Patient continued to progress to ARDS and was placed on IV steroids. Patient was able to complete course of Tamiflu and IV antibiotics for bacterial pneumonia. Patient's symptoms improved throughout hospital stay. Patient was cleared to discharge today with home oxygen and was prescribed aspirin, prednisone taper, Symbicort, Aldactone, Flonase, metformin, Lipitor, and Norvasc. Patient is advised to follow-up with dye house worker, relationship executive and PCP on outpatient basis. Final Diagnosis: #. Sepsis secondary to influenza pneumonia, unable to rule out bacterial pneumonia #. Acute hypoxic respiratory failure, secondary to above #. Severe ARDS secondary to above #. Cardiorenal syndrome #. Heart failure with reduced ejection fraction EF of 45 to 50% (06/2024) #. NSTEMI, type II #. A-fib #. COPD #. Type II DM #. Hypertension #. Hyperlipidemia Physical examination: Vital signs reviewed General: non toxic, no distress, on nasal cannula Derm: no unusual rashes/lesions, warm Head: atraumatic, normocephalic, symmetric Eyes: EOMI, anicteric sclera, pupils equal round reactive to light ENT: Nose and ears atraumatic Neck: No cervical lymphadenopathy, trachea midline, supple Mouth: no lip lesion, mucus membranes moist Cardiovascular: S1S2 reg, no murmur Lungs: CTA bilateral, no rhonchi, no rales, no accessory muscle use Abdominal: soft, nondistended, nontender to palpation, no guarding Ext: muscle strength 5 out of 5 in all 4 extremities grossly, no gross muscle atrophy, no contractures, positive dorsalis pedis pulse bilateral, no edema Neuro: CN II-XI grossly intact, no gross focal neuro deficits Psych: Alert, oriented, appropriate affect and mood I saw and evaluated the patient during the goode and critical portions of this encounter, and discussed the case in detail with the resident author of this note, I agree with the Assessment and Plan, and my changes, if any, are highlighted in blue. A total of 35 minutes were spent discharging this patient today Patient Condition at Discharge: Serious Plan - Discharge Summary Discharge Rx Participant: No New Discharge Prescriptions: New Aspirin 81 mg PO DAILY #90 tab predniSONE See Taper PO DAILY #32 tab Budesonide-Formot 160-4.5 Mcg [Symbicort 160-4.5 Mcg Inhaler] 2 puff INHALATION RT-BID 30 Days #1 each Spironolactone [Aldactone] 25 mg PO DAILY #90 tablet Fluticasone Nasal [place] [Flonase Nasal [place]] 2 spray EA NOSTRIL DAILY PRN ml PRN Reason: Allergy Symptoms metFORMIN HCL [Glucophage] 500 mg PO BID #60 tab Atorvastatin [Lipitor] 40 mg PO HS #90 tab amLODIPine [Norvasc] 5 mg PO DAILY #90 tab Continue Amiodarone [Cordarone] 200 mg PO DAILY Metoprolol Succinate (ER) [Toprol XL] 25 mg PO DAILY Apixaban [Eliquis] 5 mg PO BID Furosemide [Lasix] 40 mg PO DAILY lisinopriL [Zestril] 20 mg PO BID Discharge Medication List Apixaban [Eliquis] 5 mg PO BID 04/12/22 [History] Furosemide [Lasix] 40 mg PO DAILY 04/12/22 [History] Amiodarone [Cordarone] 200 mg PO DAILY 12/31/22 [History] Metoprolol Succinate (ER) [Toprol XL] 25 mg PO DAILY 07/20/24 [History] lisinopriL [Zestril] 20 mg PO BID 07/20/24 [History] Aspirin 81 mg PO DAILY #90 tab 07/31/24 [Rx] Atorvastatin [Lipitor] 40 mg PO HS #90 tab 07/31/24 [Rx] Budesonide-Formot 160-4.5 Mcg [Symbicort 160-4.5 Mcg Inhaler] 2 puff INHALATION RT-BID 30 Days #1 each 07/31/24 [Rx] Fluticasone Nasal [place] [Flonase Nasal [place]] 2 spray EA NOSTRIL DAILY PRN ml 07/31/24 [Rx] Spironolactone [Aldactone] 25 mg PO DAILY #90 tablet 07/31/24 [Rx] amLODIPine [Norvasc] 5 mg PO DAILY #90 tab 07/31/24 [Rx] metFORMIN HCL [Glucophage] 500 mg PO BID #60 tab 07/31/24 [Rx] predniSONE See Taper PO DAILY #32 tab 07/31/24 [Rx] Follow up Appointment(s)/Referral(s): Marly Raymundo MD [STAFF PHYSICIAN] - 08/21/24 9:00 am (Saturday) Gamal Toledo DO [STAFF PHYSICIAN] - 08/13/24 1:45 pm ( with CHILD DEVELOPMENT CONSULTANT) [facility] [NON-STAFF] - Gabrielle Song MD [RESIDENT] - 08/05/24 8:00 am (Family Medicine Office [address] [place] [address] St-Wednesday ) Patient Instructions/Handouts: Type 2 Diabetes in Adults: New Diagnosis (DC) Activity/Diet/Wound Care/Special Instructions: Wear 2L of oxygen per NC at all times Discharge/Stand Alone Forms: Who Do I Call?, Personal Power Press Supervisor, Area PCPs Discharge Disposition: HOME SELF-CARE
== END 2024-07-31 14:52 | disposition home or self-care (01) | DRG 871 ==
LOC: EC 21:55 → 3SCARD 07-20 00:25
PROVIDERS: ADMIT Internal Medicine; ATTEND Internal Medicine
PROC: 5A09457 Assistance with Respiratory Ventilation, 24-96 Consecutive Hours, Continuous Positive Airway Pressure (ICD-10-PCS; principal; 2024-07-21)
DX: A41.89 Other specified sepsis (principal); I21.A1 Myocardial infarction type 2; J80 Acute respiratory distress syndrome; J10.01 Influenza due to other identified influenza virus with the same other identified influenza virus pneumonia; N17.0 Acute kidney failure with tubular necrosis; I50.23 Acute on chronic systolic (congestive) heart failure; J10.08 Influenza due to other identified influenza virus with other specified pneumonia; J15.9 Unspecified bacterial pneumonia; E87.20 Acidosis, unspecified; I13.0 Hypertensive heart and chronic kidney disease with heart failure and stage 1 through stage 4 chronic kidney disease, or unspecified chronic kidney disease; J44.0 Chronic obstructive pulmonary disease with (acute) lower respiratory infection; E11.65 Type 2 diabetes mellitus with hyperglycemia; N18.31 Chronic kidney disease, stage 3a; I07.1 Rheumatic tricuspid insufficiency; I42.9 Cardiomyopathy, unspecified; I48.19 Other persistent atrial fibrillation; J44.1 Chronic obstructive pulmonary disease with (acute) exacerbation; E22.2 Syndrome of inappropriate secretion of antidiuretic hormone; I16.1 Hypertensive emergency; Q21.12 Patent foramen ovale; E11.22 Type 2 diabetes mellitus with diabetic chronic kidney disease; I45.9 Conduction disorder, unspecified; F41.9 Anxiety disorder, unspecified; E78.5 Hyperlipidemia, unspecified; T50.2X5A Adverse effect of carbonic-anhydrase inhibitors, benzothiadiazides and other diuretics, initial encounter; Z79.01 Long term (current) use of anticoagulants; Z79.899 Other long term (current) drug therapy; Z87.891 Personal history of nicotine dependence
CPT/HCPCS: 36415; 36600; 71045; 76770; 80048; 80053; 81001; 82272; 82805; 83036; 83605; 83735; 83880; 84145; 84484; 85025; 85027; 85610; 85730; 87040; 87449; 87636; 93005; 93306; 94640; 94660; 94760; 96361; 96365; 96366; 96367; 96375; 99291

== ENCOUNTER 2024-08-04 20:30 | Inpatient (IN) | payer MEDICARE, OTHER ==
[2024-08-04 20:56] LABS: Basophils % (A) 0 %; Eosinophils # (A) 0.1 k/uL (0-0.7); Eosinophils % (A) 0 %; HCT 35.2 % (39.0-53.0); Lymphocytes # (A) 1.3 k/uL (1.0-4.8); Lymphocytes % (A) 6 %; MCH 29.4 pg (25.0-35.0); MCHC 31.4 g/dL (31.0-37.0); MCV 93.7 fL (80.0-100.0); Mean Platelet Volume 9.2; Monocytes # (A) 0.9 k/uL (0-1.0); Monocytes % (A) 4 %; Neutrophils % (A) 88 %; Platelet Count 322 k/uL (150-450); RBC 3.76 m/uL (4.30-5.90); RDW 12.8 % (11.5-15.5); WBC 22.6 k/uL (3.8-10.6)
[2024-08-04 20:58] LABS: VBG PH 7.52 (7.31-7.41)
[2024-08-04 21:05] LABS: ALT 37 U/L (4-49); African American GFR (CKD) 68 (>60 ml/min/1.73 sqM); Anion Gap 8 mmol/L; Blood Urea Nitrogen 30 mg/dL (9-20); Carbon Dioxide 24 mmol/L (22-30); Chloride 101 mmol/L (98-107); Glucose 135 mg/dL (74-99); Non-African American GFR(CKD) 59 (>60 ml/min/1.73 sqM); Sodium 133 mmol/L (137-145); Total Bilirubin 1.2 mg/dL (0.2-1.3)
[2024-08-04 21:07] LABS: INR 1.1 (<1.2); Prothrombin Time 11.8 sec (10.0-12.5)
[2024-08-04 21:08] LABS: AST 39 U/L (17-59); Alkaline Phosphatase 65 U/L (38-126); Potassium 4.2 mmol/L (3.5-5.1); Total Protein 6.1 g/dL (6.3-8.2)
[2024-08-04 21:12] LABS: NT-Pro-B-Type Natriuretic Pept 8810 pg/mL
--- NOTE | 2024-08-04 21:18 | ED ---
SOB HPI - General Chief Complaint: Shortness of Breath Stated Complaint: SILAS Source: patient, RN notes reviewed Mode of arrival: EMS - History of Present Illness Initial Comments: This is a 64-year-old male presenting in severe dyspnea and shortness of breath initial oxygen by EMS was in the low 70s, patient has been on home O2 after discharge for admission with influenza pneumonia, patient states his shortness of breath has been increasing for the last few days worse today, no recurrent fevers no chest pain. Patient states during recent hospital admission His oxygen was not improving and while he was placed on O2 MD Complaint: shortness of breath, cough, "asthma attack" (Possible history of COPD. Currently on home O2) -: hour(s) Severity: severe Severity scale (1-10): 10 Consistency: constant Improves With: rest, bronchodilators Worsens With: exertion, movement Known History Of: COPD, congestive heart failure, recurrent pneumonia, other (Recent influenza with pneumonia) Context: recent URI, recent illness Associated Symptoms: cough, sputum production Treatments Prior to Arrival: oxygen, bronchodilator, NIPPV - Related Data Home Medications Medication Instructions Recorded Confirmed Apixaban [Eliquis] 5 mg PO BID 04/12/22 08/05/24 Furosemide [Lasix] 40 mg PO DAILY 04/12/22 08/05/24 Amiodarone [Cordarone] 200 mg PO DAILY 12/31/22 08/05/24 Metoprolol Succinate (ER) [Toprol 25 mg PO DAILY 07/20/24 08/05/24 XL] lisinopriL [Zestril] 20 mg PO BID 07/20/24 08/05/24 Previous Rx's Medication Instructions Recorded Aspirin 81 mg PO DAILY #90 tab 07/31/24 Atorvastatin [Lipitor] 40 mg PO HS #90 tab 07/31/24 Budesonide-Formot 160-4.5 Mcg 2 puff INHALATION RT-BID 30 Days 07/31/24 [Symbicort 160-4.5 Mcg Inhaler] #1 each Fluticasone Nasal [place] [Flonase 2 spray EA NOSTRIL DAILY PRN ml 07/31/24 Nasal [place]] Spironolactone [Aldactone] 25 mg PO DAILY #90 tablet 07/31/24 amLODIPine [Norvasc] 5 mg PO DAILY #90 tab 07/31/24 metFORMIN HCL [Glucophage] 500 mg PO BID #60 tab 07/31/24 predniSONE See Taper PO DAILY #32 tab 07/31/24 Apixaban [Eliquis Starter Pack 5 - 10 mg PO DIRECTED 30 Days 08/06/24 (for VTE)] #1 each Allergies Allergy/AdvReac Type Severity Reaction Status Date / Time No Known Allergies Allergy Verified 08/04/24 20:36 Review of Systems ROS Statement: Those systems with pertinent positive or pertinent negative responses have been documented in the HPI. ROS Other: All systems not noted in ROS Statement are negative. Past Medical History Past Medical History: Atrial Fibrillation, Diabetes Mellitus, Hyperlipidemia, Hypertension, Pneumonia, Supraventricular Tachycardia (SVT) Additional Past Medical History / Comment(s): a fib, causes shortness of breath, can feel irregular heartbeat History of Any Multi-Drug Resistant Organisms: None Reported Past Surgical History: Cholecystectomy, Heart Catheterization Additional Past Surgical History / Comment(s): Colonoscopy Past Anesthesia/Blood Transfusion Reactions: No Reported Reaction Past Psychological History: No Psychological Hx Reported Smoking Status: Current every day smoker Past Alcohol Use History: Occasional Past Drug Use History: Marijuana - Past Family History Father Family Medical History: No Reported History Mother Family Medical History: Coronary Artery Disease (CAD) General Exam General appearance: alert, anxious, in distress Head exam: Present: atraumatic, normocephalic, normal inspection Eye exam: Present: normal appearance, PERRL, EOMI. Absent: scleral icterus, conjunctival injection, periorbital swelling ENT exam: Present: normal exam, mucous membranes moist Neck exam: Present: normal inspection. Absent: tenderness, meningismus, lymphadenopathy Respiratory exam: Present: normal lung sounds bilaterally, respiratory distress, wheezes, rhonchi, accessory muscle use, decreased breath sounds, prolonged expiratory. Absent: rales, stridor Cardiovascular Exam: Present: regular rate, normal rhythm, normal heart sounds. Absent: systolic murmur, diastolic murmur, rubs, gallop, clicks GI/Abdominal exam: Present: soft, normal bowel sounds. Absent: distended, tenderness, guarding, rebound, rigid Extremities exam: Present: normal inspection, full ROM, normal capillary refill. Absent: tenderness, pedal edema, joint swelling, calf tenderness Back exam: Present: normal inspection Neurological exam: Present: alert, oriented X3, CN II-XII intact Psychiatric exam: Present: normal affect, normal mood Skin exam: Present: warm, dry, intact, normal color. Absent: rash Course Vital Signs 08/04/24 08/04/24 08/04/24 20:33 20:37 20:39 Temperature 98.2 F Pulse Rate 80 Respiratory 26 H 26 H Rate Blood Pressure 163/77 O2 Sat by Pulse 90 L 96 Oximetry Fraction of Inspired Oxygen (FIO2) 08/04/24 08/04/24 08/04/24 20:41 21:15 21:47 Temperature Pulse Rate 61 Respiratory Rate Blood Pressure O2 Sat by Pulse Oximetry Fraction of 100 80 Inspired Oxygen (FIO2) 08/04/24 08/04/24 08/04/24 22:03 22:04 22:30 Temperature Pulse Rate 67 66 Respiratory 22 Rate Blood Pressure 138/68 O2 Sat by Pulse 99 Oximetry Fraction of 60 Inspired Oxygen (FIO2) 08/04/24 08/05/24 08/05/24 23:00 00:00 00:06 Temperature Pulse Rate 68 68 Respiratory 22 22 Rate Blood Pressure 152/75 141/78 O2 Sat by Pulse 99 95 Oximetry Fraction of 60 Inspired Oxygen (FIO2) 08/05/24 08/05/24 08/05/24 01:00 02:00 03:00 Temperature Pulse Rate 64 61 56 L Respiratory 24 22 22 Rate Blood Pressure 144/74 143/92 131/71 O2 Sat by Pulse 95 98 97 Oximetry Fraction of Inspired Oxygen (FIO2) 08/05/24 08/05/24 08/05/24 03:52 04:00 05:00 Temperature 98.9 F Pulse Rate 68 57 L Respiratory 22 18 Rate Blood Pressure 135/85 147/76 O2 Sat by Pulse 98 99 Oximetry Fraction of 60 Inspired Oxygen (FIO2) 08/05/24 08/05/24 08/05/24 05:37 05:39 05:48 Temperature Pulse Rate 56 L Respiratory Rate Blood Pressure O2 Sat by Pulse Oximetry Fraction of 40 60 Inspired Oxygen (FIO2) 08/05/24 08/05/24 08/05/24 05:49 06:00 07:37 Temperature Pulse Rate 66 59 L 59 L Respiratory 20 19 Rate Blood Pressure 156/72 130/68 O2 Sat by Pulse 99 99 Oximetry Fraction of Inspired Oxygen (FIO2) 08/05/24 08/05/24 08/05/24 08:10 08:23 08:30 Temperature Pulse Rate 55 L 60 62 Respiratory 16 Rate Blood Pressure 140/66 O2 Sat by Pulse 96 Oximetry Fraction of 60 Inspired Oxygen (FIO2) 08/05/24 08/05/24 08/05/24 08:35 09:30 10:30 Temperature Pulse Rate 64 73 69 Respiratory 20 23 Rate Blood Pressure 148/70 131/72 O2 Sat by Pulse 86 L 92 L Oximetry Fraction of Inspired Oxygen (FIO2) 08/05/24 08/05/24 08/05/24 11:30 11:33 11:38 Temperature Pulse Rate 73 71 70 Respiratory 32 H Rate Blood Pressure 110/47 O2 Sat by Pulse 85 L Oximetry Fraction of Inspired Oxygen (FIO2) 08/05/24 08/05/24 08/05/24 12:30 13:30 14:30 Temperature Pulse Rate 74 68 72 Respiratory 22 22 20 Rate Blood Pressure 128/59 146/71 137/67 O2 Sat by Pulse 89 L 95 92 L Oximetry Fraction of Inspired Oxygen (FIO2) 08/05/24 08/05/24 08/05/24 15:34 15:44 16:00 Temperature Pulse Rate 70 78 71 Respiratory 32 H Rate Blood Pressure 154/75 O2 Sat by Pulse 95 Oximetry Fraction of Inspired Oxygen (FIO2) 08/05/24 08/05/24 08/05/24 18:00 19:31 20:00 Temperature Pulse Rate 86 93 80 Respiratory 20 28 H 24 Rate Blood Pressure 146/72 118/82 149/79 O2 Sat by Pulse 89 L 85 L 92 L Oximetry Fraction of Inspired Oxygen (FIO2) - Reevaluation(s) Reevaluation #1: 08/04/24 22:28 Records reviewed Patient hospitalization with persistent hypoxia from influenza pneumonia Do not feel comfortable when he was discharged because he was still very short of breath and has been short of breath for days Reevaluation #2: 08/04/24 22:28 Patient improving on BiPAP placed on BiPAP on arrival in the ER Reevaluation #3: 08/04/24 22:28 Patient informed of results and questions answered Reevaluation #4: Was pt. sent in by a medical professional or institution (, PA, GUITAR INSTRUCTOR, urgent care, hospital, or [facility]...) When possible be specific @ -no Did you speak to anyone other than the patient for history (EMS, parent, family, police, friend...)? What history was obtained from this source @ -no Did you review nursing and triage notes (agree or disagree)? Why? @ -agree Are old charts reviewed (outside hosp., previous admission, EMS record, old EKG, old radiological studies, urgent care reports/EKG's, [facility] records)? Report findings @ -yes Differential Diagnosis (chest pain, altered mental status, abdominal pain women, abdominal pain men, vaginal bleeding, weakness, fever, dyspnea, syncope, headache, dizziness, GI bleed, back pain, seizure, CVA, palpatations, mental health, musculoskeletal)? @ -prior EKG interpreted by me (3pts min.). @ -yes X-rays interpreted by me (1pt min.). @ -yes yes positive for pneumonia CT interpreted by me (1pt min.). @ -Yes positive for PE U/S interpreted by me (1pt. min.). @ -no What testing was considered but not performed or refused? (CT, X-rays, U/S, labs)? Why? @ -none What meds were considered but not given or refused? Why? @ -none Did you discuss the management of the patient with other professionals (professionals i.e. , PA, GUITAR INSTRUCTOR, lab, RT, psych nurse, social work associate, licensed appraiser, teacher, [place] police officer, classification case manager)? Give summary @ -no Was smoking cessation discussed for >3mins.? @ -no Was critical care preformed (if so, how long)? @ -yes31 Were there social determinants of health that impacted care today? How? (Homelessness, low income, unemployed, alcoholism, drug addiction, transportation, low edu. Level, literacy, decrease access to med. care, shelter, rehab)? @ -none Was there de-escalation of care discussed even if they declined (Discuss DNR or withdrawal of care, Hospice)? DNR status @ -no What co-morbidities impacted this encounter? (DM, HTN, Smoking, COPD, CAD, Cancer, CVA, ARF, Chemo, Hep., AIDS, mental health diagnosis, sleep apnea, morbid obesity)? @ -none Was patient admitted / discharged? Hospital course, mention meds given and route, prescriptions, significant lab abnormalities, going to OR and other pertinent info. @ - 64 male to the ER for eval for hypoxic respiratory failure multifocal pneumonia and influenza positive PE on CtT scan and CT, patient will be admitted for anticoagulation and treatment of PE consistent treatment of pneumonia Admitted Undiagnosed new problem with uncertain prognosis? @ -no Drug Therapy requiring intensive monitoring for toxicity (Heparin, Nitro, Insulin, Cardizem)? @ -no Were any procedures done? @ -no Diagnosis/symptom? @ -Multifocal pneumonia hypoxia and PE Acute, or Chronic, or Acute on Chronic? @ -Acute Uncomplicated (without systemic symptoms) or Complicated (systemic symptoms)? @ -Complicated Side effects of treatment? @ -no Exacerbation, Progression, or Severe Exacerbation? @ -exacerbation Poses a threat to life or bodily function? How? (Chest pain, USA, ID, pneumonia, PE, COPD, DKA, ARF, appy, cholecystitis, CVA, Diverticulitis, Homicidal, Suicida l, threat to staff... and all critical care pts) @ -yes hypoxia Reevaluation #5: Differential Dyspnea: Coronary syndrome, arrhythmia, tamponade, asthma, COPD, pulmonary embolism, pneumonia, pneumothorax, pulmonary effusion, anaphylaxis, diabetic ketoacidosis, flailed chest, pulmonary contusion, diaphragmatic rupture, anemia, neuromuscular, this is not meant to be an all-inclusive list. - Consultations Consultation #1: Spoke with [facility] who agrees to admit this patient Medical Decision Making - Medical Decision Making 64 male to the ER for eval for hypoxic respiratory failure multifocal pneumonia and influenza also with findings of positive PE on CT scan and CT, patient will be admitted for anticoagulation and treatment of PE consistent treatment of pneumonia - Lab Data Result diagrams: 08/09/24 06:55 08/09/24 06:55 Lab Results 08/04/24 08/04/24 08/04/24 Range/Units 20:38 20:38 20:38 WBC 22.6 H (3.8-10.6) k/uL RBC 3.76 L (4.30-5.90) m/uL Hgb 11.0 L (13.0-17.5) gm/dL Hct 35.2 L (39.0-53.0) % MCV 93.7 (80.0-100.0) fL MCH 29.4 (25.0-35.0) pg MCHC 31.4 (31.0-37.0) g/dL RDW 12.8 (11.5-15.5) % Plt Count 322 (150-450) k/uL MPV 9.2 Neutrophils % 88 % Lymphocytes % 6 % Monocytes % 4 % Eosinophils % 0 % Basophils % 0 % Neutrophils # 20.0 H (1.3-7.7) k/uL Lymphocytes # 1.3 (1.0-4.8) k/uL Monocytes # 0.9 (0-1.0) k/uL Eosinophils # 0.1 (0-0.7) k/uL Basophils # 0.0 (0-0.2) k/uL PT 11.8 (10.0-12.5) sec INR 1.1 (<1.2) APTT 28.0 (22.0-30.0) sec D-Dimer (<0.60) mg/L FEU VBG pH (7.31-7.41) VBG pCO2 (37-51) mmHg VBG HCO3 (24-28) mmol/L Sodium 133 L (137-145) mmol/L Potassium 4.2 (3.5-5.1) mmol/L Chloride 101 (98-107) mmol/L Carbon Dioxide 24 (22-30) mmol/L Anion Gap 8 mmol/L BUN 30 H (9-20) mg/dL Creatinine 1.27 H (0.66-1.25) mg/dL Est GFR (CKD-EPI)AfAm 68 (>60 ml/min/1.73 sqM) Est GFR (CKD-EPI)NonAf 59 (>60 ml/min/1.73 sqM) Glucose 135 H (74-99) mg/dL Plasma Lactic Acid Rodri (0.7-2.0) mmol/L Calcium 8.0 L (8.4-10.2) mg/dL Total Bilirubin 1.2 (0.2-1.3) mg/dL AST 39 (17-59) U/L ALT 37 (4-49) U/L Alkaline Phosphatase 65 (38-126) U/L Troponin I (0.000-0.034) ng/mL NT-Pro-B Natriuret Pep 8810 pg/mL Total Protein 6.1 L (6.3-8.2) g/dL Albumin 3.0 L (3.5-5.0) g/dL Influenza Type A (PCR) (Not Detectd) Influenza Type B (PCR) (Not Detectd) RSV (PCR) (Not Detectd) SARS-CoV-2 (PCR) (Not Detectd) 08/04/24 08/04/24 08/04/24 Range/Units 20:38 20:38 20:38 WBC (3.8-10.6) k/uL RBC (4.30-5.90) m/uL Hgb (13.0-17.5) gm/dL Hct (39.0-53.0) % MCV (80.0-100.0) fL MCH (25.0-35.0) pg MCHC (31.0-37.0) g/dL RDW (11.5-15.5) % Plt Count (150-450) k/uL MPV Neutrophils % % Lymphocytes % % Monocytes % % Eosinophils % % Basophils % % Neutrophils # (1.3-7.7) k/uL Lymphocytes # (1.0-4.8) k/uL Monocytes # (0-1.0) k/uL Eosinophils # (0-0.7) k/uL Basophils # (0-0.2) k/uL PT (10.0-12.5) sec INR (<1.2) APTT (22.0-30.0) sec D-Dimer (<0.60) mg/L FEU VBG pH 7.52 H (7.31-7.41) VBG pCO2 32 L (37-51) mmHg VBG HCO3 26 (24-28) mmol/L Sodium (137-145) mmol/L Potassium (3.5-5.1) mmol/L Chloride (98-107) mmol/L Carbon Dioxide (22-30) mmol/L Anion Gap mmol/L BUN (9-20) mg/dL Creatinine (0.66-1.25) mg/dL Est GFR (CKD-EPI)AfAm (>60 ml/min/1.73 sqM) Est GFR (CKD-EPI)NonAf (>60 ml/min/1.73 sqM) Glucose (74-99) mg/dL Plasma Lactic Acid Rodri 1.5 (0.7-2.0) mmol/L Calcium (8.4-10.2) mg/dL Total Bilirubin (0.2-1.3) mg/dL AST (17-59) U/L ALT (4-49) U/L Alkaline Phosphatase (38-126) U/L Troponin I 0.049 H* (0.000-0.034) ng/mL NT-Pro-B Natriuret Pep pg/mL Total Protein (6.3-8.2) g/dL Albumin (3.5-5.0) g/dL Influenza Type A (PCR) (Not Detectd) Influenza Type B (PCR) (Not Detectd) RSV (PCR) (Not Detectd) SARS-CoV-2 (PCR) (Not Detectd) 08/04/24 08/04/24 Range/Units 20:38 20:39 WBC (3.8-10.6) k/uL RBC (4.30-5.90) m/uL Hgb (13.0-17.5) gm/dL Hct (39.0-53.0) % MCV (80.0-100.0) fL MCH (25.0-35.0) pg MCHC (31.0-37.0) g/dL RDW (11.5-15.5) % Plt Count (150-450) k/uL MPV Neutrophils % % Lymphocytes % % Monocytes % % Eosinophils % % Basophils % % Neutrophils # (1.3-7.7) k/uL Lymphocytes # (1.0-4.8) k/uL Monocytes # (0-1.0) k/uL Eosinophils # (0-0.7) k/uL Basophils # (0-0.2) k/uL PT (10.0-12.5) sec INR (<1.2) APTT (22.0-30.0) sec D-Dimer 4.87 H (<0.60) mg/L FEU VBG pH (7.31-7.41) VBG pCO2 (37-51) mmHg VBG HCO3 (24-28) mmol/L Sodium (137-145) mmol/L Potassium (3.5-5.1) mmol/L Chloride (98-107) mmol/L Carbon Dioxide (22-30) mmol/L Anion Gap mmol/L BUN (9-20) mg/dL Creatinine (0.66-1.25) mg/dL Est GFR (CKD-EPI)AfAm (>60 ml/min/1.73 sqM) Est GFR (CKD-EPI)NonAf (>60 ml/min/1.73 sqM) Glucose (74-99) mg/dL Plasma Lactic Acid Rodri (0.7-2.0) mmol/L Calcium (8.4-10.2) mg/dL Total Bilirubin (0.2-1.3) mg/dL AST (17-59) U/L ALT (4-49) U/L Alkaline Phosphatase (38-126) U/L Troponin I (0.000-0.034) ng/mL NT-Pro-B Natriuret Pep pg/mL Total Protein (6.3-8.2) g/dL Albumin (3.5-5.0) g/dL Influenza Type A (PCR) Detected A (Not Detectd) Influenza Type B (PCR) Not Detected (Not Detectd) RSV (PCR) Not Detected (Not Detectd) SARS-CoV-2 (PCR) Not Detected (Not Detectd) - EKG Data -: EKG Interpreted by Me (EKG is sinus 65 GA 186 QRS 150 QTc 451) - Radiology Data Radiology results: report reviewed (Chest x-ray multifocal pneumonia CTA positive PE), image reviewed Critical Care Time Critical Care Time: Yes Total Critical Care Time: 31 Disposition Clinical Impression: Acute exacerbation of chronic obstructive pulmonary disease, Hypoxia, Acute respiratory failure, Community acquired pneumonia, Bilateral pneumonia, Pulmonary embolism Narrative: Recent Influenza Disposition: ADMITTED IP TO THIS HOSP Condition: Serious Is patient prescribed a controlled substance at d/c from ED?: No Time of Disposition: 22:30
--- NOTE | 2024-08-04 21:28 | XR ---
EXAMINATION TYPE: XR chest 1V portable DATE OF EXAM: 08/04/2024 9:15 PM COMPARISON: Chest radiographs from 07/30/2024 CLINICAL INDICATION: Male, 64 years old with history of SILAS; [facility] TECHNIQUE: XR chest 1V portable Frontal view of the chest. FINDINGS: Lungs/Pleura: Multifocal airspace opacities. No evidence of pneumothorax or pleural effusion. Pulmonary vascularity: Unremarkable. Heart/mediastinum: Cardiomediastinal silhouette is unremarkable. Musculoskeletal: No acute osseous pathology. Other findings: None IMPRESSION: Multifocal airspace opacities concerning for pneumonia. [facility], , 08/04/2024 9:26 PM
[2024-08-04] MEDS: IPRATROPIUM-ALBUTEROL 3 ML NEB INHALATION STA (21:47)
[2024-08-04] MEDS: LEVOFLOXACIN 750MG-D5W PMX 750 MG in DEXTROSE/WATER 1 150ML.BAG IVPB SCH (22:10)
[2024-08-04] MEDS: LACTATED RINGERS 1,000 ML IV SCH (22:53)
[2024-08-04] MEDS: SODIUM CHLORIDE 0.9% 1,000 ML IV SCH (22:54)
[2024-08-04] MEDS: PIPERACILLIN-TAZOBACTAM 3.375 GM in SODIUM CHLORIDE 0.9% 100 ML IVPB STA (22:57)
--- NOTE | 2024-08-04 23:06 | CT ---
EXAM: CT Angiography Chest With Intravenous Contrast CLINICAL HISTORY: ITS.REASON CT Reason: PE TECHNIQUE: Axial computed tomographic angiography images of the chest with intravenous contrast. CTDI is 26.6 mGy and DLP is 542.6 mGy-cm. This CT exam was performed using one or more of the following dose reduction techniques: automated exposure control, adjustment of the mA and/or kV according to patient size, and/or use of iterative reconstruction technique. MIP reconstructed images were created and reviewed. COMPARISON: No relevant prior studies available. FINDINGS: Pulmonary arteries: Suboptimal pulmonary artery opacification. Main pulmonary mildly enlarged suggesting pulmonary arterial hypertension. Acute segmental and subsegmental pulmonary emboli within the right middle and right lower lobes. Aorta: Thoracic aortic atherosclerosis without aneurysm or dissection. Lungs: Chronic interstitial lung disease with nonspecific features. There are stacked cystic changes predominantly in the upper lung zones. There is no basilar predominance. There are bilateral coarse reticular opacities as well as geographic regions of ground-glass lung attenuation. No pulmonary infarct identified. Pleural space: Trace pleural effusions. No pneumothorax. Heart: No RV strain. Mild cardiomegaly. Coronary artery atherosclerosis. No pericardial effusion. Bones/joints: No acute fracture or dislocation. Soft tissues: Unremarkable. Lymph nodes: Unremarkable. No enlarged lymph nodes. Gallbladder and bile ducts: Cholecystectomy. IMPRESSION: 1. Acute segmental and subsegmental pulmonary emboli within the right middle and right lower lobes. No saddle embolus. No RV strain. 2. Chronic interstitial lung disease with nonspecific features. Recommend pulmonology follow-up. <MYCVCSECTION> Communications: 08/04/24 23:13 Call Doctor Regarding Pulmonary Embolism, called Dr. Cid on 08/04 23:13 (-04:00)
[2024-08-04] MEDS ORDERED: HEPARIN SODIUM 1,000 UN/ML (10ML VL) IV PRN (23:13)
[2024-08-04] MEDS ORDERED: NALOXONE 0.4 MG/ML 1 ML VIAL IV PRN (23:15)
[2024-08-04] MEDS: LEVOFLOXACIN 750MG-D5W PMX 750 MG in DEXTROSE/WATER 1 150ML.BAG IVPB STA (23:23)
[2024-08-04] MEDS: SODIUM CHLORIDE 0.9% 1,000 ML IV ONE (23:28)
[2024-08-05] MEDS: HEPARIN SODIUM 1,000 UN/ML (10ML VL) IV ONE (00:03)
[2024-08-05] MEDS: HEPARIN SOD,PORK IN 0.45% NACL 25,000 UNIT in 0.45% NACL 1 250ML.BAG IV SCH (00:04)
--- NOTE | 2024-08-05 00:27 | US ---
EXAM: US Duplex Bilateral Lower Extremities Veins CLINICAL HISTORY: ITS.REASON US Reason: dvt TECHNIQUE: Real-time duplex ultrasound scan of the bilateral lower extremity veins integrating B-mode two-dimensional vascular structure, Doppler spectral analysis, color flow Doppler imaging and compression. COMPARISON: No relevant prior studies available. FINDINGS: Right deep veins: Unremarkable. No DVT in the right common femoral, femoral, proximal deep femoral or popliteal veins. The veins demonstrate normal color flow, are normally compressible, with normal phasic flow and/or augmentation response. Right superficial veins: Unremarkable. No thrombus in the visualized right great saphenous vein. Left deep veins: Unremarkable. No DVT in the left common femoral, femoral, proximal deep femoral or popliteal veins. The veins demonstrate normal color flow, are normally compressible, with normal phasic flow and/or augmentation response. Left superficial veins: Unremarkable. No thrombus in the visualized left great saphenous vein. Soft tissues: No acute findings. IMPRESSION: No evidence of acute DVT.
[2024-08-05 02:34] LABS: Glucose,Whole Blood 234 mg/dL (70-110)
[2024-08-05] MEDS: FUROSEMIDE 10 MG/ML 4 ML VIAL IV STA (02:35)
[2024-08-05] MEDS ORDERED: IPRATROPIUM-ALBUTEROL 3 ML NEB INHALATION PRN (03:08)
--- NOTE | 2024-08-05 03:10 | P.HPIM ---
History of Present Illness H&P Date: 08/05/24 Patient is a 64-year-old male with a PMH of atrial fibrillation on Eliquis, COPD on 2 L home oxygen, [id number] diabetes mellitus, hyperlipidemia, hypertension presenting with shortness of breath. Patient was previously admitted here for acute hypoxic respiratory failure secondary to influenza pneumonia and was discharged on 2 L of home oxygen. Patient states he has been feeling short of breath while at rest. He reports that since being discharged the home oxygen has not been sufficient. He states that he had to keep increasing his oxygen. Patient says shortness of breath is slightly relieved when he is laying down. Denies any orthopnea or PND. Patient endorses a nonproductive cough that is chronic in nature, but says it has been getting worse. Patient admits to having fever, chills. Patient also admits to having non-radiating, pressure-like chest pain over the last few days. Chest pain is not related to exertion and he had no alleviating or aggravating factors. P atient denies any headache, vision changes, nausea, vomiting, diarrhea, abdominal pain, urinary symptoms. EKG independently interpreted displaying sinus rhythm with left bundle branch block that has been seen on prior EKG, rate 65 bpm, QTc 451 ms CXR independently interpreted displaying bilateral multifocal airspace opacities Chest CTA displaying acute segmental and subsegmental pulmonary emboli within the right and middle lower lobes, no saddle embolus, no RV strain, chronic interstitial loading disease Venous Doppler B/L LE displaying no evidence of acute DVT Troponin 0.049, 0.055, proBNP 8810, D-dimer 4.87, WBC 22.6, Hgb 11.0, HCT 35.2, MCV 93.7, platelet 322, PT 11.8, INR 1.1, APTT 28, sodium 133, potassium 4.2, CO2 24, BUN 30, creatinine 1.27, glucose 135 VBG pH 7.52, pCO2 32 T98.2 F, NV 80, RR 26, BP 163/77, O2 sat 90% on BiPAP with FiO2 of 100% ED documentation reviewed. Review of systems: Pertinent positives and negatives as discussed in HPI, a complete review of systems was performed and all other systems are negative. Social history: Tobacco: Current [id number] smoker Alcohol: Occasional alcohol use Recreational drugs: Marijuana Travel: No recent travel Physical examination: Vital signs reviewed General: sick appearing male, on Bipap, in respiratory distress, appears at stated age, obese Derm: no unusual rashes/lesions, warm Head: atraumatic, normocephalic, symmetric Eyes: EOMI, anicteric sclera, pupils equal round reactive to light ENT: Nose and ears atraumatic Mouth: no lip lesion, mucus membranes moist Cardiovascular: S1S2 reg, no murmur, positive dorsalis pedis pulse bilateral Lungs: Decreased breath sounds, bilateral rhonchi, accessory muscle use Abdominal: soft, non-tender to palpation, no guarding Ext: muscle strength 5 out of 5 in all 4 extremities grossly, 2+ edema on left lower extremity Neuro: CN II-XI grossly intact, no gross focal neuro deficits Psych: Alert, oriented to person, place, and time Assessment/Plan: Patient is a 64-year-old male with a PMH of atrial fibrillation on Eliquis, COPD on home oxygen, [id number] diabetes mellitus, hyperlipidemia, hypertension presenting with shortness of breath. #. Acute pulmonary embolism, non-massive #. Sepsis likely secondary to post-viral pneumonia #. Acute hypoxic respiratory failure, secondary to above #. Acute COPD exacerbation Currently on BiPAP 12/5, FiO2 60% D-dimer 4.87, proBNP 8810, troponin 0.049, 0.055 WBC 22.6, RR 26 Chest CTA displaying acute segmental and subsegmental pulmonary emboli within the right and middle lower lobes, no saddle embolus, no RV strain CXR displaying bilateral multifocal airspace opacity Placed on IV LMWH by ED C/w Zosyn 3.375 g IVPB every 8 hours Initiate Vancomycin per pharmacy dosing Blood cultures ordered Procalcitonin ordered Echocardiogram ordered Cardiac monitoring Pulmonology and ID consulted by ED F/u Legionella and sputum cultures C/w Solumedrol 60 mg IV q6h Initiate Duonebs RTC and prn #. Heart failure with reduced ejection fraction (EF 45 to 50%) #. COPD on 2 L home O2 Currently on BiPAP C/w IV Lasix 40 mg q12hr Resume home breathing treatments Resume GDMT once reconciled Intake and output Daily weights Monitor electrolytes daily Cardiology consulted #. Ujf-jidztku-ybkjtsreo type 2 diabetes Insulin subcu sliding scale Accu-Cheks ACHS Hypoglycemic precaution Hold metformin #. Hypertension #. Hyperlipidemia Continue home meds once reconciled F: NS at 75 cc an hour E: Replete electrolytes as needed N: Heart healthy diet A: Independently ambulatory DVT prophylaxis: IV heparin The patient is admitted with an anticipated greater than than 2 midnight stay for evaluation of acute pulmonary embolism. CODE STATUS: Full code Discussed with: Patient Anticipated discharge place: Pending clinical course Cornell Mai MD PGY-1 IM Dictation was produced using [employer] dictation software. please excuse any grammatical, word or spelling errors. Past Medical History Past Medical History: Atrial Fibrillation, Diabetes Mellitus, Hyperlipidemia, Hypertension, Pneumonia, Supraventricular Tachycardia (SVT) Additional Past Medical History / Comment(s): a fib, causes shortness of breath, can feel irregular heartbeat History of Any Multi-Drug Resistant Organisms: None Reported Past Surgical History: Cholecystectomy, Heart Catheterization Additional Past Surgical History / Comment(s): Colonoscopy Past Anesthesia/Blood Transfusion Reactions: No Reported Reaction Past Psychological History: No Psychological Hx Reported Smoking Status: Current every day smoker Past Alcohol Use History: Occasional Past Drug Use History: Marijuana - Past Family History Father Family Medical History: No Reported History Mother Family Medical History: Coronary Artery Disease (CAD) Medications and Allergies Home Medications Medication Instructions Recorded Confirmed Type Apixaban [Eliquis] 5 mg PO BID 04/12/22 07/20/24 History Furosemide [Lasix] 40 mg PO DAILY 04/12/22 07/20/24 History Amiodarone [Cordarone] 200 mg PO DAILY 12/31/22 07/20/24 History Metoprolol Succinate (ER) [Toprol 25 mg PO DAILY 07/20/24 07/20/24 History XL] lisinopriL [Zestril] 20 mg PO BID 07/20/24 07/20/24 History Aspirin 81 mg PO DAILY #90 tab 07/31/24 Rx Atorvastatin [Lipitor] 40 mg PO HS #90 tab 07/31/24 Rx Budesonide-Formot 160-4.5 Mcg 2 puff INHALATION RT-BID 30 Days 07/31/24 Rx [Symbicort 160-4.5 Mcg Inhaler] #1 each Fluticasone Nasal [place] [Flonase 2 spray EA NOSTRIL DAILY PRN ml 07/31/24 Rx Nasal [place]] Spironolactone [Aldactone] 25 mg PO DAILY #90 tablet 07/31/24 Rx amLODIPine [Norvasc] 5 mg PO DAILY #90 tab 07/31/24 Rx metFORMIN HCL [Glucophage] 500 mg PO BID #60 tab 07/31/24 Rx predniSONE See Taper PO DAILY #32 tab 07/31/24 Rx Allergies Allergy/AdvReac Type Severity Reaction Status Date / Time No Known Allergies Allergy Verified 08/04/24 20:36 Physical Exam Vitals: Vital Signs Temp Pulse Resp BP Pulse Ox FiO2 08/05/24 01:00 64 24 144/74 95 08/05/24 00:06 60 08/05/24 00:00 68 22 141/78 95 08/04/24 23:00 68 22 152/75 99 08/04/24 22:30 66 22 138/68 99 08/04/24 22:04 60 08/04/24 22:03 67 08/04/24 21:47 61 08/04/24 21:15 80 08/04/24 20:41 100 08/04/24 20:39 26 H 08/04/24 20:37 96 08/04/24 20:33 98.2 F 80 26 H 163/77 90 L Intake and Output 08/04/24 08/04/24 08/05/24 14:59 22:59 06:59 Other: Weight 113.398 kg Results CBC & Chem 7: 08/04/24 20:38 08/04/24 20:38 Labs: Abnormal Lab Results - Last 24 Hours (Table) 08/04/24 08/04/24 08/04/24 Range/Units 20:38 20:38 20:38 WBC 22.6 H (3.8-10.6) k/uL RBC 3.76 L (4.30-5.90) m/uL Hgb 11.0 L (13.0-17.5) gm/dL Hct 35.2 L (39.0-53.0) % Neutrophils # 20.0 H (1.3-7.7) k/uL D-Dimer (<0.60) mg/L FEU VBG pH (7.31-7.41) VBG pCO2 (37-51) mmHg Sodium 133 L (137-145) mmol/L BUN 30 H (9-20) mg/dL Creatinine 1.27 H (0.66-1.25) mg/dL Glucose 135 H (74-99) mg/dL Calcium 8.0 L (8.4-10.2) mg/dL Troponin I 0.049 H* (0.000-0.034) ng/mL Total Protein 6.1 L (6.3-8.2) g/dL Albumin 3.0 L (3.5-5.0) g/dL 08/04/24 08/04/24 08/05/24 Range/Units 20:38 20:38 00:25 WBC (3.8-10.6) k/uL RBC (4.30-5.90) m/uL Hgb (13.0-17.5) gm/dL Hct (39.0-53.0) % Neutrophils # (1.3-7.7) k/uL D-Dimer 4.87 H (<0.60) mg/L FEU VBG pH 7.52 H (7.31-7.41) VBG pCO2 32 L (37-51) mmHg Sodium (137-145) mmol/L BUN (9-20) mg/dL Creatinine (0.66-1.25) mg/dL Glucose (74-99) mg/dL Calcium (8.4-10.2) mg/dL Troponin I 0.055 H* (0.000-0.034) ng/mL Total Protein (6.3-8.2) g/dL Albumin (3.5-5.0) g/dL
--- NOTE | 2024-08-05 04:01 | P.CNPUL ---
History of Present Illness Consult date: 08/05/24 Requesting physician: Cade Cid Reason for consult: hypoxemia, pneumonia Chief complaint: Difficulty in breathing History of present illness: Patient is a 64-year-old male with past medical history significant for atrial fibrillation, diabetes mellitus, CKD stage III, hypertension, hyperlipidemia, tobacco smoker. Of note, recently had a prolonged hospitalization 07/19/2024 through 07/31/2024. Treated for combination of influenza A, pneumonia, CHF. Completed course of antibiotics and Tamiflu. At this time, did require noninvasive BiPAP, eventually discharged on home O2. Returns with a chief complaint of shortness of breath progressing over the last 2 to 3 days. Also, reports sudden onset substernal chest pain that developed the night prior and has been persistent. On arrival to the ED, found to be in some respiratory distress, and placed on BiPAP. Workup in the emergency department including a chest x-ray showing multifocal infiltrates concerning for pneumonia or pulmonary edema. D-dimer was elevated in setting CT angio protocol which was positive for segmental and subsegmental right middle lobe and right lower lobe pulmonary emboli. No saddle pulmonary embolus. Pulmonary artery mildly enlarged. Preserved RV to LV ratio. There were diffuse coarse reticular infiltrates, as well as, groundglass lung attenuation, cystic changes, with concerns for interst itial lung disease. Patient does take Eliquis for his history of atrial fibrillation. Does state he has missed some doses lately. CBC: WBC count 22.6, hemoglobin 11, platelets 322. CMP: Sodium 133, potassium 4.2, chloride 101, serum bicarb 24, BUN 30, creatinine 1.27, glucose 135. Lactic 1.5. VBG with a pH of 7.5 and pCO2 of 32. EKG: Sinus rhythm, rate 65 bpm, left bundle branch block, not acute. Elevated serial troponins 0.049 and 0.055 respectively. NT proBNP elevated 8807. Patient is currently being evaluated in the emergency department. He is alert and some moderate respiratory distress. On BiPAP with settings 12/5 and FiO2 60%. Tachypneic, breathing around 40 breaths/min. En dorses progressive worsening difficulty in breathing over last couple days. He has tried to increase his supplemental oxygen at home without any relief. Denies previous history of DVT or PE. Associated nonproductive cough. Denies sputum production or hemoptysis. Substernal nonradiating chest pain persist. Denies any fevers or chills. Denies heart palpitations or syncopal events. Denies swelling in the lower extremities. Heart rhythm is normal sinus on bedside monitor. Blood pressure has been normotensive, did receive 2 L of crystalloid fluid bolus earlier. Not requiring any vasopressors. Normal saline is infusing at 150 mL/h. IV heparin infusing per protocol Review of Systems Constitutional: Reports fatigue, Reports sweats, Denies chills, Denies fever, Denies poor appetite, Denies weight gain, Denies weight loss Ears, nose, mouth and throat: Denies epistaxis, Denies headache, Denies nasal congestion, Denies nasal discharge, Denies post-nasal drip, Denies sinus pain, Denies sinus pressure, Denies sore throat Cardiovascular: Reports chest pain, Reports dyspnea on exertion, Reports sh ortness of breath, Denies leg edema, Denies lightheadedness, Denies orthopnea, Denies palpitations, Denies paroxysmal nocturnal dyspnea, Denies syncope Respiratory: Reports cough, Reports dyspnea, Reports home oxygen, Reports wheezing, Denies congestion, Denies cough with sputum, Denies hemoptysis, Denies pain on inspiration Gastrointestinal: Denies abdominal pain, Denies change in bowel habits, Denies diarrhea, Denies hematemesis, Denies hematochezia, Denies melena, Denies nausea, Denies vomiting Genitourinary: Denies dysuria Musculoskeletal: Denies limitation of motion Integumentary: Denies rash, Denies unusual bruising Neurological: Denies seizures, Denies syncope Psychiatric: Denies anxiety, Denies depression Past Medical History Past Medical History: Atrial Fibrillation, Diabetes Mellitus, Hyperlipidemia, Hypertension, Pneumonia, Supraventricular Tachycardia (SVT) Additional Past Medical History / Comment(s): a fib, causes shortness of breath, can feel irregular heartbeat History of Any Multi-Drug Resistant Organisms: None Reported Past Surgical History: Cholecystectomy, Heart Catheterization Additional Past Surgical History / Comment(s): Colonoscopy Past Anesthesia/Blood Transfusion Reactions: No Reported Reaction Past Psychological History: No Psychological Hx Reported Smoking Status: Current every day smoker Past Alcohol Use History: Occasional Past Drug Use History: Marijuana - Past Family History Father Family Medical History: No Reported History Mother Family Medical History: Coronary Artery Disease (CAD) Medications and Allergies Home Medications Medication Instructions Recorded Confirmed Type Apixaban [Eliquis] 5 mg PO BID 04/12/22 08/05/24 History Furosemide [Lasix] 40 mg PO DAILY 04/12/22 08/05/24 History Amiodarone [Cordarone] 200 mg PO DAILY 12/31/22 08/05/24 History Metoprolol Succinate (ER) [Toprol 25 mg PO DAILY 07/20/24 08/05/24 History XL] lisinopriL [Zestril] 20 mg PO BID 07/20/24 08/05/24 History Aspirin 81 mg PO DAILY #90 tab 07/31/24 08/05/24 Rx Atorvastatin [Lipitor] 40 mg PO HS #90 tab 07/31/24 08/05/24 Rx Budesonide-Formot 160-4.5 Mcg 2 puff INHALATION RT-BID 30 Days 07/31/24 08/05/24 Rx [Symbicort 160-4.5 Mcg Inhaler] #1 each Fluticasone Nasal [place] [Flonase 2 spray EA NOSTRIL DAILY PRN ml 07/31/24 08/05/24 Rx Nasal [place]] Spironolactone [Aldactone] 25 mg PO DAILY #90 tablet 07/31/24 08/05/24 Rx amLODIPine [Norvasc] 5 mg PO DAILY #90 tab 07/31/24 08/05/24 Rx metFORMIN HCL [Glucophage] 500 mg PO BID #60 tab 07/31/24 08/05/24 Rx predniSONE See Taper PO DAILY #32 tab 07/31/24 08/05/24 Rx Allergies Allergy/AdvReac Type Severity Reaction Status Date / Time No Known Allergies Allergy Verified 08/04/24 20:36 Physical Exam Vitals: Vital Signs Temp Pulse Resp BP Pulse Ox FiO2 08/05/24 01:00 64 24 144/74 95 08/05/24 00:06 60 08/05/24 00:00 68 22 141/78 95 08/04/24 23:00 68 22 152/75 99 08/04/24 22:30 66 22 138/68 99 08/04/24 22:04 60 08/04/24 22:03 67 08/04/24 21:47 61 08/04/24 21:15 80 08/04/24 20:41 100 08/04/24 20:39 26 H 08/04/24 20:37 96 08/04/24 20:33 98.2 F 80 26 H 163/77 90 L Intake and Output 08/04/24 08/04/24 08/05/24 14:59 22:59 06:59 Other: Weight 113.398 kg GENERAL EXAM: Alert, 64-year-old male, in a moderate amount of respiratory distress on BiPAP HEAD: Normocephalic and atraumatic EYES: Normal reaction of pupils, equal size. NOSE: Clear with pink turbinates. THROAT: No erythema or exudates. NECK: No masses, no JVD. CHEST: No chest wall deformity. LUNGS: Equal air entry with crackles heard on inspiration bilaterally. On BiPAP with settings 12/5 and FiO2 60%. Tachypneic breathing around 40 breaths/min. SpO2 reading 97% on bedside monitor. Conversational dyspnea. CVS: S1 and S2 normal with soft systolic murmur, regular rhythm. No other extra heart sounds ABDOMEN: No hepatosplenomegaly, active bowel sounds, no guarding or rigidity. SPINE: No scoliosis or deformity SKIN: No rashes CENTRAL NERVOUS SYSTEM: No focal deficits, tone is normal in all 4 extremities. EXTREMITIES: There is no peripheral edema, clubbing, or cyanosis. Peripheral pulses are intact. Results - Laboratory Findings CBC and BMP: 08/05/24 05:48 08/05/24 05:48 PT/INR, D-dimer PT 11.8 sec (10.0-12.5) 08/04/24 20:38 INR 1.1 (<1.2) 08/04/24 20:38 D-Dimer 4.87 mg/L FEU (<0.60) H 08/04/24 20:38 Abnormal lab findings: Abnormal Labs 08/04/24 08/04/24 08/04/24 20:38 20:38 20:38 WBC 22.6 H RBC 3.76 L Hgb 11.0 L Hct 35.2 L Neutrophils # 20.0 H D-Dimer VBG pH VBG pCO2 Sodium 133 L BUN 30 H Creatinine 1.27 H Glucose 135 H Calcium 8.0 L Troponin I 0.049 H* Total Protein 6.1 L Albumin 3.0 L 03/11/25 03/11/25 03/12/25 20:38 20:38 00:25 WBC RBC Hgb Hct Neutrophils # D-Dimer 4.87 H VBG pH 7.52 H VBG pCO2 32 L Sodium BUN Creatinine Glucose Calcium Troponin I 0.055 H* Total Protein Albumin - Diagnostic Findings Chest x-ray: image reviewed Assessment and Plan Assessment: Acute on chronic hypoxic respiratory failure. Multifactorial. Reviewed the CAT scan of the chest. The patient is changes with coarse infiltrates and cystic changes which could potentially suggest an underlying ILD. Nevertheless, the patient has developed bilateral pulmonary infiltrates could could be CHF/pneumonia/acute lung injury. The contrast administration was put on the CTA and I doubt the possibility of a pulmonary rhythm. The patient is maintained on anticoagulation with Eliquis on an outpatient basis. He is currently on IV heparin. He is currently on diuretics. Is currently on a combination of cefepime and vancomycin. He is also on bronchodilators and steroids. He remains on amiodarone. Acute hypoxemic respiratory failure, currently requiring BiPAP support, secondary to a combination of above, chest x-ray showing multifocal infiltrates concerning for pneumonia or pulmonary edema. Follow-up chest CT showing diffuse coarse reticular infiltrates, as well as, groundglass lung attenuation upper lobe predominant cystic changes, with concerns for interstitial lung disease. The patient was given diuretics with improvement in his oxygenation and the patient seems to be less short of breath and currently on 15 L of oxygen nasal cannula. Acute exacerbation of chronic systolic congestive heart failure, recent echocardiogram from 07/20/2024 estimating a left ventricular ejection fraction of 45 to 50%, moderate pulmonary hypertension, and moderate tricuspid regurgitation. Acute leukocytosis Recent hospitalization with influenza A infection, completed course of Tamiflu CKD stage IIIa History of atrial fibrillation with previous cardioversion, currently normal sinus, normally maintained on Eliquis and amiodarone Chronic tobacco dependence with suspected underlying COPD Hypertension. Hyperlipidemia. Diabetes mellitus, type II. Plan: Patient's medications, labs, imaging reviewed Continue BiPAP support with current settings Continue IV heparin per protocol No CT evidence of right-sided heart strain Add high-dose IV Solu-Medrol Add Lasix 40 mg daily Continue empiric antibiotics Blood cultures are pending Check procalcitonin level Case to be discussed with Dr. Goode I have personally seen and examined the patient, performed the documentation and the assessment and plan as written. Number of minutes spent on the visit:20 This is a joint evaluation that was done along with the nurse practitioner. This evaluation was done and 32 minutes. This is a 64-year-old male patient who is coming in with worsening shortness of breath. The patient was in the hospital from 07/19/2024 and 07/31/2024 and the patient was treated for influenza A infection and CHF/pneumonia during his earlier hospitalization. The patient was discharged home on 2 L of oxygen by nasal cannula. He is currently readmitted with worsening shortness of breath and a chest x-ray showing diffuse multifocal airspace disease concerning for pneumonia/CHF. CTA of the chest was also done and it showed some changes to suggest chronic interstitial lung disease as the patient has some chronic interstitial infiltrates subpleural distribution and some stacked cystic changes predominantly in the upper lung zone. There is also bilateral coarse reticular opacities seen bilaterally. There is also mild cardiomegaly. The contrast administration was poor and the CAT scan raised the suspicion for a subsegmental pulmonary embolism in the right middle lobe and right lower lobe. Doppler of the lower extremities were essentially negative. Noted, the patient has been maintained on anticoagulation on outpatient basis and he has been taking Eliquis. D-dimer was elevated during this current admission. Further blood work shows a white cell count of 17, hemoglobin 10.3, BUN 28 and creatinine is at 1.3 as the patient has chronic stage III kidney disease. Troponins were mildly elevated at 0.04 and 0.05. proBNP level was 8810. The viral screen showed persistence of influenza A. Procalcitonin level is at 0.18. The white cell count was initially 22 dropped down to 17.2. The EKG showed a sinus rhythm with a left bundle branch block pattern. Hemoglobin is at 10.3. For now, the patient is subjected to diuresis and the patient is on Lasix 40 mg IV every 12 hours. He is producing excellent urine output and his shortness of breath seems to have improved. Nevertheless, continues to be hypoxic and he remains on high flow oxygen 15 L/min nasal cannula. He was also covered with IV cefepime and vancomycin as broad-spectrum antibiotics. He was started on DuoNeb nebulizer treatments [id number] and IV Solu-Medrol. Note that he has been also on albuterol which could potentially cause an interstitial lung disease as the patient has some changes in the CAT scan of the chest to suggest ILD. The patient has presented with history of atrial fibrillation. The patient has undergone a ABHIJIT cardioversion back in 2021 in 2022 and has been maintained on amiodarone in combination with Eliquis and metoprolol on an outpatient basis. Most recent echocardiogram from 07/20/2024 showed an ejection fraction of 45 to 50% Time with Patient: Greater than 30
[2024-08-05] MEDS ORDERED: VANCOMYCIN IV PER PHARMACY 1 EACH MISC MISCELLANE PRN (04:37)
[2024-08-05 04:51] LABS: Influenza A Detected (Not Detectd); Influenza B Not Detected (Not Detectd); RSV Not Detected (Not Detectd)
[2024-08-05] MEDS: methylPREDNISolone SOD SUCCI 125 MG/2 ML VIAL IV SCH (05:11)
[2024-08-05] MEDS: VANCOMYCIN 2,500 MG in SODIUM CHLORIDE 0.9% 500 ML 500 ML IVPB ONE (05:13)
[2024-08-05] MEDS: IPRATROPIUM-ALBUTEROL 3 ML NEB INHALATION SCH (05:37)
--- NOTE | 2024-08-05 06:17 | XR ---
EXAMINATION TYPE: XR chest 1V DATE OF EXAM: 08/05/2024 CLINICAL INDICATION: Male, 64 years old with history of multifocal infiltrates, progress study. TECHNIQUE: Single AP portable upright view of the chest is obtained. COMPARISON: Chest x-ray and CT from one day earlier FINDINGS: Bilateral Multifocal increased opacities demonstrated. Persistent cardiomegaly with athero sclerotic changes in the aortic knob. Osseous structures are intact. IMPRESSION: Persistent cardiomegaly with bilateral multifocal acute infiltrates and/or edema. Finding s are worse in the bilateral lower lungs from one day earlier. [facility], , 08/05/2024 6:15 AM
[2024-08-05 06:35] LABS: Basophils % (A) 0 %; Eosinophils % (A) 0 %; HCT 32.3 % (39.0-53.0); HGB 10.3 gm/dL (13.0-17.5); Lymphocytes # (A) 0.6 k/uL (1.0-4.8); Lymphocytes % (A) 3 %; MCH 30.4 pg (25.0-35.0); MCHC 31.8 g/dL (31.0-37.0); MCV 95.8 fL (80.0-100.0); Mean Platelet Volume 9.6; Monocytes # (A) 0.4 k/uL (0-1.0); Monocytes % (A) 2 %; Neutrophils # (A) 16.1 k/uL (1.3-7.7); Neutrophils % (A) 94 %; Platelet Count 242 k/uL (150-450); RBC 3.37 m/uL (4.30-5.90); WBC 17.2 k/uL (3.8-10.6)
[2024-08-05 07:26] LABS: ALT 34 U/L (4-49); AST 35 U/L (17-59); African American GFR (CKD) 62 (>60 ml/min/1.73 sqM); Albumin 2.9 g/dL (3.5-5.0); Alkaline Phosphatase 78 U/L (38-126); Anion Gap 9 mmol/L; Blood Urea Nitrogen 28 mg/dL (9-20); Carbon Dioxide 25 mmol/L (22-30); Chloride 102 mmol/L (98-107); Glucose 213 mg/dL (74-99); Non-African American GFR(CKD) 53 (>60 ml/min/1.73 sqM); Phosphorus 5.9 mg/dL (2.5-4.5); Potassium 3.8 mmol/L (3.5-5.1); Sodium 136 mmol/L (137-145); Total Bilirubin 0.8 mg/dL (0.2-1.3); Total Protein 6.1 g/dL (6.3-8.2)
[2024-08-05 07:29] LABS: Magnesium 1.8 mg/dL (1.6-2.3)
[2024-08-05 07:44] LABS: Glucose,Whole Blood 238 mg/dL (70-110)
[2024-08-05] MEDS: FORMOTEROL FUMARATE 20 MCG/2 ML NEBU INHALATION SCH (08:08)
[2024-08-05] MEDS: BUDESONIDE 1 MG/2 ML NEBU INHALATION SCH (08:08)
[2024-08-05] MEDS: INSULIN LISPRO (HumaLOG) 100 UNIT/ML 10 mL VL SQ SCH (08:56)
[2024-08-05] MEDS: FUROSEMIDE 10 MG/ML 4 ML VIAL IV SCH ×2 (09:00→22:24)
[2024-08-05] MEDS: PIPERACILLIN-TAZOBACTAM 3.375 GM in SODIUM CHLORIDE 0.9% 100 ML IVPB SCH (09:00)
[2024-08-05] MEDS ORDERED: FUROSEMIDE 10 MG/ML 4 ML VIAL IV SCH (09:00)
[2024-08-05] MEDS: PANTOPRAZOLE 40 MG/10 ML VIAL IV SCH (09:01)
[2024-08-05] MEDS: CEFEPIME 2 GM in SODIUM CHLORIDE 0.9% 100 ML IVPB SCH ×2 (10:14→22:25)
--- NOTE | 2024-08-05 11:41 | P.CRDCN ---
History of Present Illness Consult date: 08/05/24 Reason for Consult (text): PE History of present illness: This is a 64-year-old male patient of Dr. Toledo with past medical history of chronic kidney disease stage III, COPD tobacco use, alcohol abuse, hypertension, diabetes mellitus type 2, persistent atrial fibrillation, systolic heart failure, recent GI bleed, family history of premature coronary artery disease. We have been asked to evaluate the patient for PE. Patient was recently hospitalized 07/20 - 07/31 and was seen by cardiology at that time for NSTEMI secondary to sepsis, influenza and pneumonia. Patient states that he was discharged home but he has had problems with getting his medications and has not been taking his medications after he was discharged. He states he could not afford it because he no longer has Medicaid. Patient did go home on oxygen at 2 L nasal cannula. Patient states that he was having weakness at home could not do anything and he had significant dyspnea with even a small amount of activity. Patient is seen today in the emergency center on BiPAP. He is waiting for a bed on the cardiac stepdown unit. Pulmonary medicine is also on consult. Blood pressure 156/72, heart rate 59, pulse ox 99% on BiPAP. Patient has been started on heparin drip, IV Solu-Medrol, IV antibiotics. -EKG: Sinus rhythm with left bundle branch block, left axis deviation. -Chest x-ray: Multifocal airspace opacities concerning for pneumonia. #2 persistent cardiomegaly with bilateral multifocal acute infiltrates and/or edema. Findings are worse in the bilateral lower lungs from 1 day earlier. -CTA chest: Acute segmental and subsegmental pulmonary emboli within the right middle and right lower lobes. No saddle embolus. No RV strain. Chronic interstitial lung disease with nonspecific features. -Laboratory studies: WBC 17.2, hemoglobin 10.3, D-dimer 4.87. Sodium 136, potassium 28 and creatinine 1.37, troponin 0.0490, 0.055 and 0.051. proBNP 8810. Influenza A detected. Procalcitonin 0.18.. -Home cardiac medications: Amiodarone 200 mg daily, Norvasc 5 mg daily, Eliquis 5 mg twice daily, atorvastatin 40 mg at bedtime, Lasix 40 mg daily, lisinopril 20 mg twice daily, metoprolol succinate 25 mg daily, spironolactone 25 mg daily. -ABHIJIT and cardioversion performed on 01/03/2023 revealed aortic valve is tricuspid, functioning normally with trace AI. Mitral valve appears to be normal with mild regurgitation. Tricuspid valve appears to be normal with moderate to severe tricuspid regurgitation. There is a PFO. Left atrial appendage is free of clot. EF 35%. -ABHIJIT and cardioversion performed 04/16/2022. -Dobutamine stress echocardiogram performed in the office on 12/27/2020 revealed nondiagnostic EKG portion secondary to baseline EKG abnormalities. Normal stress echo portion without inducible ischemia. Normal left ventricular ejection fraction of 60%. -Echocardiogram performed 07/20/2024: EF 45 to 50%, moderately increased septal wall thickness, moderate biatrial dilatation, moderate tricuspid regurgitation. Review Of Systems: At the time of my exam: CONSTITUTIONAL: Denies fever or chills. HEENT: Denies blurred vision, vision changes, or eye pain. Denies hemoptysis CARDIOVASCULAR: Denies chest pain. Denies orthopnea. Denies PND. Denies palpitations RESPIRATORY: Reports significant dyspnea on exertion, reports shortness of breath. GASTROINTESTINAL: Denies abdominal pain. Denies nausea or vomiting. HEMATOLOGIC: Denies bleeding disorders. GENITOURINARY: Denies any blood in urine. SKIN: Denies puritis. Denies rash. Physical examination: Gen: This is a 64-year-old male appears to be comfortable on BiPAP. VS: reviewed HEENT: Head is atraumatic, normocephalic. Pupils equal, round. Sclerae is anicteric. NECK: Supple. No JVD. LUNGS: Scattered rhonchi bilaterally. No intercostal retractions. HEART: Regular rate and rhythm. No murmur. ABDOMEN: Soft No tenderness. EXTREMITIES: No pedal edema. No calf tenderness. NEUROLOGICAL: Patient is awake, alert and oriented x3. Assessment: Acute pulmonary emboli due to prolonged hospitalization and unable to afford Eliquis No RV strain on CT Acute hypoxic respiratory failure requiring BiPAP secondary to influenza, pneumonia, and component of heart failure NSTEMI secondary to PE, influenza and pneumonia Influenza A Pneumonia Acute on chronic systolic heart failure Acute kidney injury Cardiomyopathy with previous EF of 15 to 20%, possibly tachycardia induced Hypertension Hyperlipidemia Persistent atrial fibrillation status post previous cardioversion x 2, currently in sinus rhythm Diabetes mellitus type 2 Plan: No evidence of RV strain on CT. Patient has no hypotension or shock symptoms. Patient does not require any local or systemic thrombolytics at this time. Resume patient's home cardiac medications Continue patient on heparin drip for 24 hours and resume Eliquis tomorrow Continue IV Lasix 40 mg every 12 hours Monitor CHOCO, daily weights, electrolytes and renal function No need to repeat echocardiogram Further recommendations to follow based upon clinical course Thank you kindly for this consultation. Nurse practitioner note has been reviewed, I agree with documented findings and plan of care. Patient was seen and examined. Past Medical History Past Medical History: Atrial Fibrillation, Diabetes Mellitus, Hyperlipidemia, Hypertension, Pneumonia, Supraventricular Tachycardia (SVT) Additional Past Medical History / Comment(s): a fib, causes shortness of breath, can feel irregular heartbeat History of Any Multi-Drug Resistant Organisms: None Reported Past Surgical History: Cholecystectomy, Heart Catheterization Additional Past Surgical History / Comment(s): Colonoscopy Past Anesthesia/Blood Transfusion Reactions: No Reported Reaction Past Psychological History: No Psychological Hx Reported Smoking Status: Current every day smoker Past Alcohol Use History: Occasional Past Drug Use History: Marijuana - Past Family History Father Family Medical History: No Reported History Mother Family Medical History: Coronary Artery Disease (CAD) Medications and Allergies Home Medications Medication Instructions Recorded Confirmed Type Apixaban [Eliquis] 5 mg PO BID 04/12/22 08/05/24 History Furosemide [Lasix] 40 mg PO DAILY 04/12/22 08/05/24 History Amiodarone [Cordarone] 200 mg PO DAILY 12/31/22 08/05/24 History Metoprolol Succinate (ER) [Toprol 25 mg PO DAILY 07/20/24 08/05/24 History XL] lisinopriL [Zestril] 20 mg PO BID 07/20/24 08/05/24 History Aspirin 81 mg PO DAILY #90 tab 07/31/24 08/05/24 Rx Atorvastatin [Lipitor] 40 mg PO HS #90 tab 07/31/24 08/05/24 Rx Budesonide-Formot 160-4.5 Mcg 2 puff INHALATION RT-BID 30 Days 07/31/24 08/05/24 Rx [Symbicort 160-4.5 Mcg Inhaler] #1 each Fluticasone Nasal [place] [Flonase 2 spray EA NOSTRIL DAILY PRN ml 07/31/24 08/05/24 Rx Nasal [place]] Spironolactone [Aldactone] 25 mg PO DAILY #90 tablet 07/31/24 08/05/24 Rx amLODIPine [Norvasc] 5 mg PO DAILY #90 tab 07/31/24 08/05/24 Rx metFORMIN HCL [Glucophage] 500 mg PO BID #60 tab 07/31/24 08/05/24 Rx predniSONE See Taper PO DAILY #32 tab 07/31/24 08/05/24 Rx Allergies Allergy/AdvReac Type Severity Reaction Status Date / Time No Known Allergies Allergy Verified 08/04/24 20:36 Physical Exam Vitals: Vital Signs Temp Pulse Resp BP Pulse Ox FiO2 08/05/24 06:00 59 L 20 156/72 99 08/05/24 05:49 66 08/05/24 05:48 60 08/05/24 05:39 40 08/05/24 05:37 56 L 08/05/24 05:00 57 L 18 147/76 99 08/05/24 04:00 98.9 F 68 22 135/85 98 08/05/24 03:52 60 08/05/24 03:00 56 L 22 131/71 97 08/05/24 02:00 61 22 143/92 98 08/05/24 01:00 64 24 144/74 95 08/05/24 00:06 60 08/05/24 00:00 68 22 141/78 95 08/04/24 23:00 68 22 152/75 99 08/04/24 22:30 66 22 138/68 99 08/04/24 22:04 60 08/04/24 22:03 67 08/04/24 21:47 61 08/04/24 21:15 80 08/04/24 20:41 100 08/04/24 20:39 26 H 08/04/24 20:37 96 08/04/24 20:33 98.2 F 80 26 H 163/77 90 L Intake and Output 08/04/24 08/05/24 08/05/24 22:59 06:59 14:59 Output Total 900 Balance -900 Output: Urine 900 Other: Weight 113.398 kg Results 08/05/24 05:48 08/05/24 05:48 Cardiac Enzymes 08/04/24 08/04/24 08/05/24 Range/Units 20:38 20:38 00:25 AST 39 (17-59) U/L Troponin I 0.049 H* 0.055 H* (0.000-0.034) ng/mL 08/05/24 08/05/24 Range/Units 03:11 05:48 AST 35 (17-59) U/L Troponin I 0.051 H* (0.000-0.034) ng/mL Coagulation 08/04/24 Range/Units 20:38 PT 11.8 (10.0-12.5) sec APTT 28.0 (22.0-30.0) sec CBC 08/04/24 08/05/24 Range/Units 20:38 05:48 WBC 22.6 H 17.2 H (3.8-10.6) k/uL RBC 3.76 L 3.37 L (4.30-5.90) m/uL Hgb 11.0 L 10.3 L (13.0-17.5) gm/dL Hct 35.2 L 32.3 L (39.0-53.0) % Plt Count 322 242 (150-450) k/uL Comprehensive Metabolic Panel 08/04/24 08/05/24 Range/Units 20:38 05:48 Sodium 133 L 136 L (137-145) mmol/L Potassium 4.2 3.8 (3.5-5.1) mmol/L Chloride 101 102 (98-107) mmol/L Carbon Dioxide 24 25 (22-30) mmol/L BUN 30 H 28 H (9-20) mg/dL Creatinine 1.27 H 1.37 H (0.66-1.25) mg/dL Glucose 135 H 213 H (74-99) mg/dL Calcium 8.0 L 8.0 L (8.4-10.2) mg/dL AST 39 35 (17-59) U/L ALT 37 34 (4-49) U/L Alkaline Phosphatase 65 78 (38-126) U/L Total Protein 6.1 L 6.1 L (6.3-8.2) g/dL Albumin 3.0 L 2.9 L (3.5-5.0) g/dL Current Medications Generic Name Dose Route Start Last Admin Trade Name Freq PRN Reason Stop Dose Admin Albuterol/Ipratropium 3 ml 08/05/24 03:08 Ipratropium-Albuterol 3 Ml Neb INHALATION RT-QID PRN Shortness Of Breath Or Wheezing Albuterol/Ipratropium 3 ml 08/05/24 04:00 08/05/24 05:37 Ipratropium-Albuterol 3 Ml Neb INHALATION 3 ml RT-Q4H MALVIN Administration Budesonide 1 mg 08/05/24 08:00 Budesonide 1 Mg/2 Ml Nebu INHALATION RT-BID MALVIN Formoterol Fumarate 20 mcg 08/05/24 08:00 Formoterol Fumarate 20 Mcg/2 Ml Nebu INHALATION RT-BID [facility] Furosemide 40 mg 08/05/24 09:00 Furosemide 10 Mg/Ml 4 Ml Vial IV DAILY [facility] Heparin Sodium (Porcine) 0 unit 08/04/24 23:13 Heparin Sodium 1,000 Un/Ml (10ml Vl) IV PER PROTOCOL PRN Low PTT Protocol Piperacillin Sod/Tazobactam 100 mls @ 25 mls/hr 08/05/24 08:00 Sod 3.375 gm/ Sodium Chloride IVPB Q8HR [facility] Protocol Sodium Chloride 1,000 mls @ 75 mls/hr 08/04/24 22:15 08/04/24 22:54 Saline 0.9% IV 150 mls/hr .[id number] MALVIN Administration Heparin Sodium/Sodium Chloride 250 mls @ 20.412 mls/hr 08/04/24 23:15 08/05/24 00:04 25,000 unit/ Sodium Chloride IV 18 units/kg/hr .[id number] MALVIN 20.412 mls/hr Administration Protocol 18 UNITS/KG/HR Vancomycin HCl 2,500 mg/ 500 mls @ 167 mls/hr 08/05/24 05:30 08/05/24 05:13 Sodium Chloride IVPB 08/05/24 08:29 167 mls/hr ONCE ONE Administration Vancomycin HCl 2,000 mg/ 500 mls @ 167 mls/hr 08/05/24 17:00 Sodium Chloride IVPB Q12H [facility] Insulin Human Lispro 0 unit 08/05/24 07:30 Insulin Lispro (Humalog) 100 Unit/Ml 10 Ml Vl SQ ACHS [facility] Protocol Methylprednisolone Sodium Succinate 60 mg 08/05/24 06:00 08/05/24 05:11 Methylprednisolone Sod Succi 125 Mg/2 Ml Vial IV 60 mg Q6HR [facility] Administration Miscellaneous Information 1 each 08/05/24 04:37 Vancomycin Iv Per Pharmacy 1 Each Misc MISCELLANE DIRECTED PRN Per Protocol Protocol Morphine Sulfate 4 mg 08/04/24 23:15 Morphine Sulfate 4 Mg/Ml Syringe IV Q4HR PRN Severe Pain (Scale 7 to 10) Naloxone HCl 0.2 mg 08/04/24 23:15 Naloxone 0.4 Mg/Ml 1 Ml Vial IV Q2M PRN Opioid Reversal Ondansetron HCl 4 mg 08/04/24 23:15 Ondansetron 4 Mg/2 Ml Vial IVP Q8HR PRN Nausea And Vomiting Pantoprazole Sodium 40 mg 08/05/24 09:00 Pantoprazole 40 Mg/10 Ml Vial IV DAILY [facility] Intake and Output 08/04/24 08/05/24 08/05/24 22:59 06:59 14:59 Output Total 900 Balance -900 Output: Urine 900 Other: Weight 113.398 kg 08/05/24 05:48 08/05/24 05:48
[2024-08-05 12:07] LABS: Glucose,Whole Blood 338 mg/dL (70-110)
[2024-08-05 16:58] LABS: Glucose,Whole Blood 276 mg/dL (70-110)
[2024-08-05] MEDS ORDERED: VANCOMYCIN 2,000 MG in SODIUM CHLORIDE 0.9% 500 ML 500 ML IVPB SCH (17:00)
--- NOTE | 2024-08-05 18:23 | P.PN ---
Progress Note - Text Progress Note Date: 08/05/24 Patient is a 64-year-old male with a PMH of atrial fibrillation on Eliquis, COPD on 2 L home oxygen, [id number] diabetes mellitus, hyperlipidemia, hypertension presenting with shortness of breath. Patient was previously admitted here for acute hypoxic respiratory failure secondary to influenza pneumonia and was discharged on 2 L of home oxygen. Patient states he has been feeling short of breath while at rest. He reports that since being discharged the home oxygen has not been sufficient. He states that he had to keep increasing his oxygen. Patient says shortness of breath is slightly relieved when he is laying down. Denies any orthopnea or PND. Patient endorses a nonpr oductive cough that is chronic in nature, but says it has been getting worse. Patient admits to having fever, chills. Patient also admits to having non- radiating, pressure-like chest pain over the last few days. Chest pain is not related to exertion and he had no alleviating or aggravating factors. Patient denies any headache, vision changes, nausea, vomiting, diarrhea, abdominal pain, urinary symptoms. EKG independently interpreted displaying sinus rhythm with left bundle branch block that has been seen on prior EKG, rate 65 bpm, QTc 451 ms CXR independently interpreted displaying bilateral multifocal airspace opacities Chest CTA displaying acute segmental and subsegmental pulmonary emboli within the right and middle lower lobes, no saddle embolus, no RV strain, chronic interstitial loading disease Venous Doppler B/L LE displaying no evidence of acute DVT Troponin 0.049, 0.055, proBNP 8810, D-dimer 4.87, WBC 22.6, Hgb 11.0, HCT 35.2, MCV 93.7, platelet 322, PT 11.8, INR 1.1, APTT 28, sodium 133, potassium 4.2, CO2 24, BUN 30, creatinine 1.27, glucose 135 VBG pH 7.52, pCO2 32 T98.2 F, MI 80, RR 26, BP 163/77, O2 sat 90% on BiPAP with FiO2 of 100% August 05: Overflowing the ER. Up in the bed. Short of breath. Patient was on BiPAP overnight. This morning on 15 L high flow nasal cannula. Decreased appetite. Has got a cough. Some wheezing. Some sputum production. Decreased appetite. Patient is on IV heparin. Also on IV cefepime. Pulmonary following Active Medications Albuterol/Ipratropium (Ipratropium-Albuterol 3 Ml Neb) 3 ml INHALATION RT-QID PRN PRN Reason: Shortness Of Breath Or Wheezing Albuterol/Ipratropium (Ipratropium-Albuterol 3 Ml Neb) 3 ml INHALATION RT-Q4H [facility] Last Admin: 08/05/24 15:34 Dose: 3 ml Amiodarone HCl (Amiodarone 200 Mg Tab) 200 mg PO DAILY [facility] Amlodipine Besylate (Amlodipine 5 Mg Tab) 5 mg PO DAILY [facility] Aspirin (Aspirin 81 Mg) 81 mg PO DAILY [facility] Atorvastatin Calcium (Atorvastatin 40 Mg Tab) 40 mg PO HS [facility] Budesonide (Budesonide 1 Mg/2 Ml Nebu) 1 mg INHALATION RT-BID [facility] Last Admin: 08/05/24 08:08 Dose: 1 mg Formoterol Fumarate (Formoterol Fumarate 20 Mcg/2 Ml Nebu) 20 mcg INHALATION RT-BID [facility] Last Admin: 08/05/24 08:08 Dose: 20 mcg Furosemide (Furosemide 10 Mg/Ml 4 Ml Vial) 40 mg IV Q12HR [facility] Heparin Sodium (Porcine) (Heparin Sodium 1,000 Un/Ml (10ml Vl)) 0 unit IV PER PROTOCOL PRN; Protocol PRN Reason: Low PTT Heparin Sodium/Sodium Chloride (25,000 unit/ Sodium Chloride) 250 mls @ 20.412 mls/hr IV .[id number] [facility]; Protocol Last Titration: 08/05/24 17:48 Dose: 0 units/kg/hr, 0 mls/hr Vancomycin HCl 1,750 mg/ (Sodium Chloride) 500 mls @ 167 mls/hr IVPB Q16H [facility] Cefepime HCl 2 gm/ Sodium (Chloride) 100 mls @ 25 mls/hr IVPB Q12H [facility]; Protocol Insulin Human Lispro (Insulin Lispro (Humalog) 100 Unit/Ml 10 Ml Vl) 0 unit SQ ACHS [facility]; Protocol Last Admin: 08/05/24 17:49 Dose: 6 unit Lisinopril (Lisinopril 20 Mg Tab) 20 mg PO BID [facility] Methylprednisolone Sodium Succinate (Methylprednisolone Sod Succi 125 Mg/2 Ml Vial) 60 mg IV Q6HR [facility] Last Admin: 08/05/24 17:49 Dose: 60 mg Metoprolol Succinate (Metoprolol Succinate (Er) 25 Mg Tab.Er.24h) 25 mg PO DA [place] [facility] Morphine Sulfate (Morphine Sulfate 4 Mg/Ml Syringe) 4 mg IV Q4HR PRN PRN Reason: Severe Pain (Scale 7 to 10) Naloxone HCl (Naloxone 0.4 Mg/Ml 1 Ml Vial) 0.2 mg IV Q2M PRN PRN Reason: Opioid Reversal Ondansetron HCl (Ondansetron 4 Mg/2 Ml Vial) 4 mg IVP Q8HR PRN PRN Reason: Nausea And Vomiting Pantoprazole Sodium (Pantoprazole 40 Mg/10 Ml Vial) 40 mg IV DAILY [facility] Last Admin: 08/05/24 09:01 Dose: 40 mg Spironolactone (Spironolactone 25 Mg Tab) 25 mg PO DAILY [facility] Social history: Tobacco: Current [id number] smoker Alcohol: Occasional alcohol use Recreational drugs: Marijuana Travel: No recent travel On examination: VITAL SIGNS: [Afebrile, 73, 32, 110 x 47, 85% on 15 L high flow nasal cannula] GENERAL APPEARANCE: BMI 38. Sitting up, short of breath. HEENT: Normal external appearance of nose and ear. Oral cavity normal EYES: Pupils equal. Conjunctiva normal. NECK: JVD not raised. Mass not palpable. RESPIRATORY: Respiratory effort increased, not able to speak in full sentences. Accessory muscles working. Lungs diminished breath sounds some scattered crackles prolonged expiration. CARDIOVASCULAR: First and second sounds normal. No edema. ABDOMEN: Soft. Liver and spleen not palpable. No tenderness. No mass palpable. PSYCHIATRY: Alert and oriented x3. Mood and affect anxious. INVESTIGATIONS, reviewed in the clinical context: August 05: White count 7.2 hemoglobin 10.3 platelets 242 sodium 136 potassium 3.8 BUN 28 creatinine 1.37 Troponin I: 0.049, 0.055, 0.051 Chest x-ray film personally reviewed by me-bilateral infiltrates. Effusion/pulm edema cardiomegaly. Venous Doppler: No DVT Chest CTA: Acute segmental and subsegmental pulm embolism within the right middle and right lower lobes. No RV strain. Chronic interstitial lung disease. Assessment/Plan: #. Acute pulmonary embolism, non-massive [segmental and subsegmental within the right middle and lower lobes. No RV strain IV heparin -IV heparin monitoring Follow PTT protocol #. Sepsis likely secondary to -viral pneumonia. Bacterial component cannot be ruled out IV cefepime. Vancomycin Pulmonary following #. Acute hypoxic respiratory failure, secondary to above: Slow to respond Was on BiPAP overnight. This morning high flow 15 L oxygen #. Acute COPD exacerbation, and a prior smoker: Slow to respond DuoNeb Q4. IV Solu-Medrol. Nebulized Pulmicort #. Acute on chronic heart failure with reduced ejection fraction (EF 45 to 50%) IV Lasix 40 mg every 12. Aldactone. #. Chronic hypoxic respiratory failure from underlying COPD 2 L home O2 #. [id number]-[id number] type 2 diabetes Insulin subcu sliding scale Accu-Cheks ACHS #. Essential hypertension Amlodipine. Zestril. #. Hyperlipidemia Lipitor -Full code Past Medical History Past Medical History: Atrial Fibrillation, Diabetes Mellitus, Hyperlipidemia, Hypertension, Pneumonia, Supraventricular Tachycardia (SVT) Additional Past Medical History / Comment(s): a fib, causes shortness of breath, can feel irregular heartbeat History of Any Multi-Drug Resistant Organisms: None Reported Past Surgical History: Cholecystectomy, Heart Catheterization Additional Past Surgical History / Comment(s): Colonoscopy Past Anesthesia/Blood Transfusion Reactions: No Reported Reaction Past Psychological History: No Psychological Hx Reported Smoking Status: Current every day smoker Past Alcohol Use History: Occasional Past Drug Use History: Marijuana
[2024-08-05 21:26] LABS: Glucose,Whole Blood 334 mg/dL (70-110)
[2024-08-05] MEDS: lisinopriL 20 MG TAB PO SCH (22:25)
[2024-08-05] MEDS: ATORVASTATIN 40 MG TAB PO SCH (22:25)
[2024-08-05] MEDS: VANCOMYCIN 1,750 MG in SODIUM CHLORIDE 0.9% 500 ML 500 ML IVPB SCH (22:26)
[2024-08-05] MEDS ORDERED: LEVOFLOXACIN 750MG-D5W PMX 750 MG in DEXTROSE/WATER 1 150ML.BAG IVPB SCH (23:00)
--- NOTE | 2024-08-05 23:01 | P.CONS ---
History of Present Illness - Reason for Consult Consult date: 08/05/24 Multifocal pneumonia Requesting physician: Cade Cid - Chief Complaint Shortness of breath and cough x few days - History of Present Illness Patient is a 64-year-old male with a past medical history significant for diabetes mellitus hypertension hyperlipidemia pneumonia atrial fibrillation currently everyday smoker presenting to the hospital for evaluation of increasing shortness of breath in this patient who was recently admitted to this facility from 07/20/2024 till 07/31/2024 with the patient was treated for acute influenza A that was treated with the Tamiflu patient on presenting back to the hospital concerning for increasing shortness of breath that has been getting worse for the last 2 days patient also complaining of cough which has been moderate in intensity and bring up some sputum no hemoptysis has been complaining of fever and chills also left-sided chest pain with the symptoms patient has been evaluated on presentation to the hospital the patient was afebrile no fever have been ordered subsequently patient was nontachycardic h ypotensive was hypoxic requiring supplemental oxygen including BiPAP patient did have a white count of 17.2 creatinine is 1.37 electrolytes are normal her liver enzymes are normal patient tested positive for influenza A RSV COVID testing was negative he did have a chest x-ray multifocal airspace opacity concerning for pneumonia also have a CT angiogram of the chest did not evidence of right middle lower lobe PE no saddle embolus patient has been started on cefepime and vancomycin infectious disease was consulted for further management of antibiotic therapy Review of Systems Positive point and negatives has been mentioned in the HPI, complete review of systems was performed and all other systems are negative Past Medical History Past Medical History: Atrial Fibrillation, Diabetes Mellitus, Hyperlipidemia, Hypertension, Pneumonia, Supraventricular Tachycardia (SVT) Additional Past Medical History / Comment(s): a fib, causes shortness of breath, can feel irregular heartbeat History of Any Multi-Drug Resistant Organisms: None Reported Past Surgical History: Cholecystectomy, Heart Catheterization Additional Past Surgical History / Comment(s): Colonoscopy Past Anesthesia/Blood Transfusion Reactions: No Reported Reaction Past Psychological History: No Psychological Hx Reported Smoking Status: Current every day smoker Past Alcohol Use History: Occasional Past Drug Use History: Marijuana - Past Family History Father Family Medical History: No Reported History Mother Family Medical History: Coronary Artery Disease (CAD) Medications and Allergies Home Medications Medication Instructions Recorded Confirmed Type Apixaban [Eliquis] 5 mg PO BID 04/12/22 08/05/24 History Furosemide [Lasix] 40 mg PO DAILY 04/12/22 08/05/24 History Amiodarone [Cordarone] 200 mg PO DAILY 12/31/22 08/05/24 History Metoprolol Succinate (ER) [Toprol 25 mg PO DAILY 07/20/24 08/05/24 History XL] lisinopriL [Zestril] 20 mg PO BID 07/20/24 08/05/24 History Aspirin 81 mg PO DAILY #90 tab 07/31/24 08/05/24 Rx Atorvastatin [Lipitor] 40 mg PO HS #90 tab 07/31/24 08/05/24 Rx Budesonide-Formot 160-4.5 Mcg 2 puff INHALATION RT-BID 30 Days 07/31/24 08/05/24 Rx [Symbicort 160-4.5 Mcg Inhaler] #1 each Fluticasone Nasal [place] [Flonase 2 spray EA NOSTRIL DAILY PRN ml 07/31/24 08/05/24 Rx Nasal [place]] Spironolactone [Aldactone] 25 mg PO DAILY #90 tablet 07/31/24 08/05/24 Rx amLODIPine [Norvasc] 5 mg PO DAILY #90 tab 07/31/24 08/05/24 Rx metFORMIN HCL [Glucophage] 500 mg PO BID #60 tab 07/31/24 08/05/24 Rx predniSONE See Taper PO DAILY #32 tab 07/31/24 08/05/24 Rx Apixaban [Eliquis Starter Pack 5 - 10 mg PO DIRECTED 30 Days 08/06/24 Rx (for VTE)] #1 each Allergies Allergy/AdvReac Type Severity Reaction Status Date / Time No Known Allergies Allergy Verified 08/04/24 20:36 Physical Exam Vitals: Vital Signs Temp Pulse Resp BP Pulse Ox FiO2 08/05/24 08:35 64 08/05/24 08:23 60 08/05/24 08:10 55 L 60 08/05/24 06:00 59 L 20 156/72 99 08/05/24 05:49 66 08/05/24 05:48 60 08/05/24 05:39 40 08/05/24 05:37 56 L 08/05/24 05:00 57 L 18 147/76 99 08/05/24 04:00 98.9 F 68 22 135/85 98 08/05/24 03:52 60 08/05/24 03:00 56 L 22 131/71 97 08/05/24 02:00 61 22 143/92 98 08/05/24 01:00 64 24 144/74 95 08/05/24 00:06 60 08/05/24 00:00 68 22 141/78 95 08/04/24 23:00 68 22 152/75 99 08/04/24 22:30 66 22 138/68 99 08/04/24 22:04 60 08/04/24 22:03 67 08/04/24 21:47 61 08/04/24 21:15 80 08/04/24 20:41 100 08/04/24 20:39 26 H 08/04/24 20:37 96 08/04/24 20:33 98.2 F 80 26 H 163/77 90 L Intake and Output 08/04/24 08/05/24 08/05/24 22:59 06:59 14:59 Intake Total 177.244 Output Total 900 Balance -900 177.244 Intake: Intake, IV Titration 177.244 Amount Heparin Sod,Pork in 0.45% 177.244 NaCl 25,000 unit In 0.45 % NaCl 1 250ml.bag @ 18 UNITS/KG/HR 20.412 mls/hr IV .[id number] [facility] Rx#: [id number] Output: Urine 900 Other: Weight 113.398 kg GENERAL DESCRIPTION: Elderly male lying in bed, no distress. No tachypnea or accessory muscle of respiration use. HEENT: Shows Pallor , no scleral icterus. Oral mucous membrane is dry. NECK: Trachea central, no thyromegaly. LUNGS: Unlabored breathing. Coarse breath sounds bilaterally HEART: S1, S2, regular rate and rhythm. No loud murmur ABDOMEN: Soft, no tenderness , guarding or rigidity, no organomegaly EXTREMITIES: No edema of feet. SKIN: No rash, no masses palpable. NEUROLOGICAL: The patient is awake, alert, oriented x3, mood and affect normal. Results CBC & Chem 7: 08/05/24 05:48 08/06/24 07:16 Labs: Abnormal Lab Results - Last 24 Hours (Table) 0308/04/24 08/04/24 Range/Units 20:38 20:38 20:38 WBC 22.6 H (3.8-10.6) k/uL RBC 3.76 L (4.30-5.90) m/uL Hgb 11.0 L (13.0-17.5) gm/dL Hct 35.2 L (39.0-53.0) % Neutrophils # 20.0 H (1.3-7.7) k/uL Lymphocytes # (1.0-4.8) k/uL APTT (22.0-30.0) sec D-Dimer (<0.60) mg/L FEU VBG pH (7.31-7.41) VBG pCO2 (37-51) mmHg Sodium 133 L (137-145) mmol/L BUN 30 H (9-20) mg/dL Creatinine 1.27 H (0.66-1.25) mg/dL Glucose 135 H (74-99) mg/dL POC Glucose (mg/dL) (70-110) mg/dL Calcium 8.0 L (8.4-10.2) mg/dL Phosphorus (2.5-4.5) mg/dL Troponin I 0.049 H* (0.000-0.034) ng/mL Total Protein 6.1 L (6.3-8.2) g/dL Albumin 3.0 L (3.5-5.0) g/dL Influenza Type A (PCR) (Not Detectd) 08/04/24 08/04/24 08/04/24 Range/Units 20:38 20:38 20:39 WBC (3.8-10.6) k/uL RBC (4.30-5.90) m/uL Hgb (13.0-17.5) gm/dL Hct (39.0-53.0) % Neutrophils # (1.3-7.7) k/uL Lymphocytes # (1.0-4.8) k/uL APTT (22.0-30.0) sec D-Dimer 4.87 H (<0.60) mg/L FEU VBG pH 7.52 H (7.31-7.41) VBG pCO2 32 L (37-51) mmHg Sodium (137-145) mmol/L BUN (9-20) mg/dL Creatinine (0.66-1.25) mg/dL Glucose (74-99) mg/dL POC Glucose (mg/dL) (70-110) mg/dL Calcium (8.4-10.2) mg/dL Phosphorus (2.5-4.5) mg/dL Troponin I (0.000-0.034) ng/mL Total Protein (6.3-8.2) g/dL Albumin (3.5-5.0) g/dL Influenza Type A (PCR) Detected A (Not Detectd) 08/05/24 08/05/24 08/05/24 Range/Units 00:25 02:33 03:11 WBC (3.8-10.6) k/uL RBC (4.30-5.90) m/uL Hgb (13.0-17.5) gm/dL Hct (39.0-53.0) % Neutrophils # (1.3-7.7) k/uL Lymphocytes # (1.0-4.8) k/uL APTT (22.0-30.0) sec D-Dimer (<0.60) mg/L FEU VBG pH (7.31-7.41) VBG pCO2 (37-51) mmHg Sodium (137-145) mmol/L BUN (9-20) mg/dL Creatinine (0.66-1.25) mg/dL Glucose (74-99) mg/dL POC Glucose (mg/dL) 234 H (70-110) mg/dL Calcium (8.4-10.2) mg/dL Phosphorus (2.5-4.5) mg/dL Troponin I 0.055 H* 0.051 H* (0.000-0.034) ng/mL Total Protein (6.3-8.2) g/dL Albumin (3.5-5.0) g/dL Influenza Type A (PCR) (Not Detectd) 08/05/24 08/05/24 08/05/24 Range/Units 05:48 05:48 05:48 WBC 17.2 H (3.8-10.6) k/uL RBC 3.37 L (4.30-5.90) m/uL Hgb 10.3 L (13.0-17.5) gm/dL Hct 32.3 L (39.0-53.0) % Neutrophils # 16.1 H (1.3-7.7) k/uL Lymphocytes # 0.6 L (1.0-4.8) k/uL APTT >200.0 H* (22.0-30.0) sec D-Dimer (<0.60) mg/L FEU VBG pH (7.31-7.41) VBG pCO2 (37-51) mmHg Sodium 136 L (137-145) mmol/L BUN 28 H (9-20) mg/dL Creatinine 1.37 H (0.66-1.25) mg/dL Glucose 213 H (74-99) mg/dL POC Glucose (mg/dL) (70-110) mg/dL Calcium 8.0 L (8.4-10.2) mg/dL Phosphorus 5.9 H (2.5-4.5) mg/dL Troponin I (0.000-0.034) ng/mL Total Protein 6.1 L (6.3-8.2) g/dL Albumin 2.9 L (3.5-5.0) g/dL Influenza Type A (PCR) (Not Detectd) 08/05/24 Range/Units 07:42 WBC (3.8-10.6) k/uL RBC (4.30-5.90) m/uL Hgb (13.0-17.5) gm/dL Hct (39.0-53.0) % Neutrophils # (1.3-7.7) k/uL Lymphocytes # (1.0-4.8) k/uL APTT (22.0-30.0) sec D-Dimer (<0.60) mg/L FEU VBG pH (7.31-7.41) VBG pCO2 (37-51) mmHg Sodium (137-145) mmol/L BUN (9-20) mg/dL Creatinine (0.66-1.25) mg/dL Glucose (74-99) mg/dL POC Glucose (mg/dL) 238 H (70-110) mg/dL Calcium (8.4-10.2) mg/dL Phosphorus (2.5-4.5) mg/dL Troponin I (0.000-0.034) ng/mL Total Protein (6.3-8.2) g/dL Albumin (3.5-5.0) g/dL Influenza Type A (PCR) (Not Detectd) Assessment and Plan (1) Leukocytosis Current Visit: Yes Status: Acute Code(s): D72.829 - ELEVATED WHITE BLOOD CELL COUNT, UNSPECIFIED SNOMED Code(s): 470774595 (2) Bilateral pneumonia Current Visit: Yes Status: Acute Code(s): J18.9 - PNEUMONIA, UNSPECIFIED ORGANISM SNOMED Code(s): 605972794 Plan: 1patient presented hospital with increasing shortness of breath and chest pain which is likely multifactorial in this patient who did have evidence of PE on the CT there is also evidence of multifocal pneumonia with elevated white count and recently acute influenza A will need to cover for resistant gram-positive as well as gram-negative pathogen for post influenza pneumonia 2-try to obtain sputum for Gram stain and culture 3-patient empirically treated with vancomycin pharmacy to dose of cefepime while waiting for the workup to be completed We will follow on clinical condition and cultures to further adjust medication if needed Thank you for this consultation we will follow the patient along with you Dictation was produced using [employer] dictation software. please excuse any grammatical, word or spelling errors. Time with Patient: Greater than 30
[2024-08-06] MEDS: LORazepam 1 MG TAB PO PRN (00:09)
[2024-08-06 06:32] LABS: Glucose,Whole Blood 341 mg/dL (70-110)
[2024-08-06 08:14] LABS: African American GFR (CKD) 55 (>60 ml/min/1.73 sqM); Anion Gap 9 mmol/L; Blood Urea Nitrogen 35 mg/dL (9-20); Calcium 7.9 mg/dL (8.4-10.2); Carbon Dioxide 21 mmol/L (22-30); Chloride 102 mmol/L (98-107); Glucose 303 mg/dL (74-99); Non-African American GFR(CKD) 48 (>60 ml/min/1.73 sqM); Potassium 3.4 mmol/L (3.5-5.1); Sodium 132 mmol/L (137-145)
[2024-08-06] MEDS: SPIRONOLACTONE 25 MG TAB PO SCH (09:44)
[2024-08-06] MEDS: amLODIPine 5 MG TAB PO SCH (09:44)
[2024-08-06] MEDS: AMIODARONE 200 MG TAB PO SCH (09:44)
[2024-08-06] MEDS: ASPIRIN 81 MG PO SCH (09:44)
[2024-08-06] MEDS: METOPROLOL SUCCINATE (ER) 25 MG TAB.ER.24H PO SCH (09:44)
[2024-08-06 11:14] LABS: Glucose,Whole Blood 382 mg/dL (70-110)
[2024-08-06] MEDS: Apixaban Initiation Dose--VTE 5 MG TAB PO SCH (12:58)
--- NOTE | 2024-08-06 13:16 | CA ---
Transthoracic Echo Report Name: Woodrow Barker Age: 64 Gender: M : 1960 Exam Date: 08/06/2024 08:09 Exam Location: [place] [facility] Ht (in): 68 Wt (lb): 250 Ordering Physician: Cade Cid DO Attending/Referring Phys: [id number], Jose Roberto Research Investigator Ondina Sylvester RDCS Procedure CPT: Indications: PE Cardiac Hx: Limited for LVEF and ziegler. Last echo 07/20/24 Technical Quality: Good Contrast 1: Total Dose (mL): Contrast 2: Total Dose (mL): MEASUREMENTS (Male / Female) Normal Values 2D ECHO LV Diastolic Diameter PLAX 4.3 cm 4.2 - 5.9 / 3.9 - 5.3 cm LV Systolic Diameter PLAX 3.2 cm IVS Diastolic Thickness 1.3 cm 0.6 - 1.0 / 0.6 - 0.9 cm LVPW Diastolic Thickness 1.6 cm 0.6 - 1.0 / 0.6 - 0.9 cm LV Relative Wall Thickness 0.7 LVOT Diameter 2.2 cm DOPPLER AV Peak Velocity 191.7 cm/s AV Peak Gradient 14.7 mmHg AV Mean Velocity 132.5 cm/s AV Mean Gradient 7.8 mmHg AV Velocity Time Integral 37.3 cm LVOT Peak Velocity 131.4 cm/s LVOT Peak Gradient 6.9 mmHg LVOT Velocity Time Integral 26.7 cm LVOT Stroke Volume 97.2 cm??? LVOT Stroke Volume Index 43.2 ml/m??? LVOT Cardiac Index 3508.5 cm???/min???m??? AV Area Cont Eq vti 2.6 cm??? AV Area Cont Eq pk 2.5 cm??? FINDINGS Left Ventricle Left ventricular ejection fraction is estimated at 55-60 %. Normal left ventricular systolic function with no obvious regional wall motion abnormalities. Left ventricular cavity size normal. Mildly increased left ventricular wall thickness. Right Ventricle Right ventricular dilatation. Normal right ventricular global systolic function. Unable to estimate the right ventricular systolic pressure. Right Atrium Right atrium not well visualized. Left Atrium Left atrium not assessed. Mitral Valve Mitral valve thickened. Mitral annular calcification. Mild mitral regurgitation. Aortic Valve Trileaflet aortic valve. Diffuse thickening (sclerosis) of the aortic valve cusps with reduced excursion. No aortic valve stenosis or regurgitation. Tricuspid Valve Structurally normal tricuspid valve. No tricuspid stenosis. Mild tricuspid regurgitation. Pulmonic Valve Pulmonic valve not well visualized. Pericardium No pericardial effusion. Aorta Aortic root and proximal ascending aorta not assessed. CONCLUSIONS Technically difficult study. Normal left ventricular size and systolic function Limited Doppler study with mild mitral and tricuspid regurgitation Previewed by: Dr. Bao Arellano MD (Electronically Signed) Final Date: 06 August 2024 13:16
--- NOTE | 2024-08-06 13:22 | P.PN ---
Subjective Progress Note Date: 08/06/24 Reason for Consult (text): PE History of present illness: This is a 64-year-old male patient of Dr. Toledo with past medical history of chronic kidney disease stage III, COPD tobacco use, alcohol abuse, hypertension, diabetes mellitus type 2, persistent atrial fibrillation, systolic heart failure, recent GI bleed, family history of premature coronary artery disease. We have been asked to evaluate the patient for PE. Patient was recently hospitalized 07/20 - 07/31 and was seen by cardiology at that time for NSTEMI secondary to sepsis, influenza and pneumonia. Patient states that he was discharged home but he has had problems with getting his medications and has not been taking his medications after he was discharged. He states he could not af jones it because he no longer has Medicaid. Patient did go home on oxygen at 2 L nasal cannula. Patient states that he was having weakness at home could not do anything and he had significant dyspnea with even a small amount of activity. Patient is seen today in the emergency center on BiPAP. He is waiting for a bed on the cardiac stepdown unit. Pulmonary medicine is also on consult. Blood pr essure 156/72, heart rate 59, pulse ox 99% on BiPAP. Patient has been started on heparin drip, IV Solu-Medrol, IV antibiotics. -EKG: Sinus rhythm with left bundle branch block, left axis deviation. -Chest x-ray: Multifocal airspace opacities concerning for pneumonia. #2 persistent cardiomegaly with bilateral multifocal acute infiltrates and/or edema. Findings are worse in the bilateral lower lungs from 1 day earlier. -CTA chest: Acute segmental and subsegmental pulmonary emboli within the right middle and right lower lobes. No saddle embolus. No RV strain. Chronic interstitial lung disease with nonspecific features. -Laboratory studies: WBC 17.2, hemoglobin 10.3, D-dimer 4.87. Sodium 136, potassium 28 and creatinine 1.37, troponin 0.0490, 0.055 and 0.051. proBNP 8810. Influenza A detected. Procalcitonin 0.18.. -Home cardiac medications: Amiodarone 200 mg daily, Norvasc 5 mg daily, Eliquis 5 mg twice daily, atorvastatin 40 mg at bedtime, Lasix 40 mg daily, lisinopril 20 mg twice daily, metoprolol succinate 25 mg daily, spironolactone 25 mg daily. -ABHIJIT and cardioversion performed on 01/03/2023 revealed aortic valve is tricuspid, functioning normally with trace AI. Mitral valve appears to be normal with mild regurgitation. Tricuspid valve appears to be normal with moderate to severe tricuspid regurgitation. There is a PFO. Left atrial appendage is free of clot. EF 35%. -ABHIJIT and cardioversion performed 04/16/2022. -Dobutamine stress echocardiogram performed in the office on 12/27/2020 revealed nondiagnostic EKG portion secondary to baseline EKG abnormalities. Normal stress echo portion without inducible ischemia. Normal left ventricular ejection fraction of 60%. -Echocardiogram performed 07/20/2024: EF 45 to 50%, moderately increased septal wall thickness, moderate biatrial dilatation, moderate tricuspid regurgitation. 08/06 Patient is seen and examined on the cardiac stepdown unit. Blood pressure 143/70, heart rate 78, pulse ox 99% on BiPAP. Repeat blood work reveals BUN 35, creatinine 1.51, potassium 3.4. Physical examination: Gen: This is a 64-year-old male appears to be comfortable on BiPAP. VS: reviewed HEENT: Head is atraumatic, normocephalic. Pupils equal, round. Sclerae is anicteric. NECK: Supple. No JVD. LUNGS: Scattered rhonchi bilaterally. No intercostal retractions. HEART: Regular rate and rhythm. No murmur. ABDOMEN: Soft No tenderness. EXTREMITIES: No pedal edema. No calf tenderness. NEUROLOGICAL: Patient is awake, alert and oriented x3. Assessment: Acute pulmonary emboli due to prolonged hospitalization and unable to afford Eliquis No RV strain on CT Acute hypoxic respiratory failure requiring BiPAP secondary to influenza, pneumonia, and component of heart failure NSTEMI secondary to PE, influenza and pneumonia Influenza A Pneumonia Acute on chronic systolic heart failure Acute kidney injury Cardiomyopathy with previous EF of 15 to 20%, possibly tachycardia induced Hypertension Hyperlipidemia Persistent atrial fibrillation status post previous cardioversion x 2, currently in sinus rhythm Diabetes mellitus type 2 Plan: No evidence of RV strain on CT. Patient has no hypotension or shock symptoms. Patient does not require any local or systemic thrombolytics at this time. Resume patient's home cardiac medications Transition patient from IV heparin to Eliquis VTE protocol, prescription will be sent to the pharmacy to check coverage Continue IV Lasix 40 mg every 12 hours Monitor CHOCO, daily weights, electrolytes and renal function No need to repeat echocardiogram Further recommendations to follow based upon clinical course Nurse practitioner note has been reviewed, I agree with documented findings and plan of care. Patient was seen and examined. Objective - Vital Signs Vital signs: Vital Signs Temp 97.1 F L 08/06/24 08:30 Pulse 74 08/06/24 10:39 Resp 26 H 08/06/24 08:30 BP 143/70 08/06/24 08:30 Pulse Ox 91 L 08/06/24 10:19 FiO2 60 08/06/24 04:23 Intake & Output 08/05/24 08/06/24 08/06/24 18:59 06:59 18:59 Intake Total 285.192 757 480 Output Total 1300 900 500 Balance -1014.808 -143 -20 Weight 113.5 kg Intake: Intake, IV Titration 285.192 0 Amount Heparin Sod,Pork in 0.45% 285.192 0 NaCl 25,000 unit In 0.45 % NaCl 1 250ml.bag @ 18 UNITS/KG/HR 20.412 mls/hr IV .[id number] [facility] Rx#: [id number] Oral 757 480 Output: Urine 1300 900 500 Other: Voiding Method Bedside Commode Bedside Commode External Catheter External Catheter - Labs CBC & Chem 7: 08/05/24 05:48 08/06/24 07:16 Labs: Abnormal Lab Results - Last 24 Hours (Table) 08/05/24 08/05/24 08/05/24 Range/Units 16:53 16:57 21:24 APTT 130.6 H* (22.0-30.0) sec Sodium (137-145) mmol/L Potassium (3.5-5.1) mmol/L Carbon Dioxide (22-30) mmol/L BUN (9-20) mg/dL Creatinine (0.66-1.25) mg/dL Glucose (74-99) mg/dL POC Glucose (mg/dL) 276 H 334 H (70-110) mg/dL Calcium (8.4-10.2) mg/dL 08/06/24 08/06/24 08/06/24 Range/Units 01:25 06:31 07:16 APTT 61.1 H (22.0-30.0) sec Sodium 132 L (137-145) mmol/L Potassium 3.4 L (3.5-5.1) mmol/L Carbon Dioxide 21 L (22-30) mmol/L BUN 35 H (9-20) mg/dL Creatinine 1.51 H (0.66-1.25) mg/dL Glucose 303 H (74-99) mg/dL POC Glucose (mg/dL) 341 H (70-110) mg/dL Calcium 7.9 L (8.4-10.2) mg/dL 08/06/24 08/06/24 Range/Units 07:16 11:12 APTT 65.9 H (22.0-30.0) sec Sodium (137-145) mmol/L Potassium (3.5-5.1) mmol/L Carbon Dioxide (22-30) mmol/L BUN (9-20) mg/dL Creatinine (0.66-1.25) mg/dL Glucose (74-99) mg/dL POC Glucose (mg/dL) 382 H (70-110) mg/dL Calcium (8.4-10.2) mg/dL Microbiology - Last 24 Hours (Table) 08/04/24 20:48 Blood Culture - Preliminary Blood
--- NOTE | 2024-08-06 15:45 | P.PN ---
Subjective Progress Note Date: 08/06/24 Principal diagnosis: Reason for follow-up is pneumonia Patient is a 64-year-old male with a past medical history significant for diabetes mellitus hypertension hyperlipidemia pneumonia atrial fibrillation currently everyday smoker presenting to the hospital for evaluation of increasing shortness of breath patient has been diagnosed with multifocal pneumonia prompting this consultation. On today's evaluation that is 08/06/2024,the patient remains to be afebrile, pat ient is on 15 L high flow nasal cannula supplemental oxygen and denies any worsening shortness of breath no chest pain or any worsening cough.Patient denies having any nausea or vomiting, no abdominal pain and no diarrhea has been reported. Patient did have a creatinine 1.51 no CBC was done today cultures are pending Objective - Vital Signs Vital signs: Vital Signs Temp 97.1 F L 08/06/24 08:30 Pulse 74 08/06/24 10:39 Resp 26 H 08/06/24 08:30 BP 143/70 08/06/24 08:30 Pulse Ox 91 L 08/06/24 10:19 FiO2 60 08/06/24 04:23 Intake & Output 08/05/24 08/06/24 08/06/24 18:59 06:59 18:59 Intake Total 285.192 757 480 Output Total 1300 900 500 Balance -1014.808 -143 -20 Weight 113.5 kg Intake: Intake, IV Titration 285.192 0 Amount Heparin Sod,Pork in 0.45% 285.192 0 NaCl 25,000 unit In 0.45 % NaCl 1 250ml.bag @ 18 UNITS/KG/HR 20.412 mls/hr IV .[id number] [facility] Rx#: [id number] Oral 757 480 Output: Urine 1300 900 500 Other: Voiding Method Bedside Commode Bedside Commode External Catheter External Catheter - Exam GENERAL DESCRIPTION: An elderly male lying in bed in no distress RESPIRATORY SYSTEM: Unlabored breathing , coarse breath sounds bilaterally HEART: S1 S2 regular rate and rhythm , ABDOMEN: Soft , no tenderness EXTREMITIES: No edema feet - Labs CBC & Chem 7: 08/05/24 05:48 08/06/24 07:16 Labs: Abnormal Lab Results - Last 24 Hours (Table) 08/05/24 08/05/24 08/05/24 Range/Units 16:53 16:57 21:24 APTT 130.6 H* (22.0-30.0) sec Sodium (137-145) mmol/L Potassium (3.5-5.1) mmol/L Carbon Dioxide (22-30) mmol/L BUN (9-20) mg/dL Creatinine (0.66-1.25) mg/dL Glucose (74-99) mg/dL POC Glucose (mg/dL) 276 H 334 H (70-110) mg/dL Calcium (8.4-10.2) mg/dL 08/06/24 08/06/24 08/06/24 Range/Units 01:25 06:31 07:16 APTT 61.1 H (22.0-30.0) sec Sodium 132 L (137-145) mmol/L Potassium 3.4 L (3.5-5.1) mmol/L Carbon Dioxide 21 L (22-30) mmol/L BUN 35 H (9-20) mg/dL Creatinine 1.51 H (0.66-1.25) mg/dL Glucose 303 H (74-99) mg/dL POC Glucose (mg/dL) 341 H (70-110) mg/dL Calcium 7.9 L (8.4-10.2) mg/dL 08/06/24 08/06/24 Range/Units 07:16 11:12 APTT 65.9 H (22.0-30.0) sec Sodium (137-145) mmol/L Potassium (3.5-5.1) mmol/L Carbon Dioxide (22-30) mmol/L BUN (9-20) mg/dL Creatinine (0.66-1.25) mg/dL Glucose (74-99) mg/dL POC Glucose (mg/dL) 382 H (70-110) mg/dL Calcium (8.4-10.2) mg/dL Microbiology - Last 24 Hours (Table) 08/04/24 20:48 Blood Culture - Preliminary Blood Assessment and Plan (1) Leukocytosis Current Visit: Yes Status: Acute Code(s): D72.829 - ELEVATED WHITE BLOOD CELL COUNT, UNSPECIFIED SNOMED Code(s): 401604718 (2) Bilateral pneumonia Current Visit: Yes Status: Acute Code(s): J18.9 - PNEUMONIA, UNSPECIFIED ORGANISM SNOMED Code(s): 171568700 Plan: 1patient presented hospital with increasing shortness of breath and chest pain which is likely multifactorial in this patient who did have evidence of PE on the CT there is also evidence of multifocal pneumonia with elevated white count and recently acute influenza A will need to cover for resistant gram-positive as well as gram-negative pathogen for post influenza pneumonia 2-cultures are currently pending 3-continue with vancomycin pharmacy to dose while watching his kidney function closely along with cefepime while waiting for the culture to finalize Dictation was produced using [employer] dictation software. please excuse any grammatical, word or spelling errors. Time with Patient: Less than 30
[2024-08-06] MEDS: ALPRAZolam 0.5 MG TAB PO PRN (16:02)
[2024-08-06 16:35] LABS: Glucose,Whole Blood 363 mg/dL (70-110)
--- NOTE | 2024-08-06 19:10 | P.PN ---
Subjective Progress Note Date: 08/06/24 Patient is a 64-year-old male with past medical history significant for atrial fibrillation, diabetes mellitus, CKD stage III, hypertension, hyperlipidemia, tobacco smoker. Of note, recently had a prolonged hospitalization 07/19/2024 through 07/31/2024. Treated for combination of influenza A, pneumonia, CHF. Completed course of antibiotics and Tamiflu. At this time, did require noninvasive BiPAP, eventually discharged on home O2. Returns with a chief complaint of shortness of breath progressing over the last 2 to 3 days. Also, reports sudden onset substernal chest pain that developed the night prior and has been persistent. On arrival to the ED, found to be in some respiratory distress, and placed on BiPAP. Workup in the emergency department including a chest x-ray showing multifocal infiltrates concerning for pneumonia or pulmonary edema. D-dimer was elevated in setting CT angio protocol which was positive for segmental and subsegmental right middle lobe and right lower lobe pulmonary emboli. No saddle pulmonary embolus. Pulmonary artery mildly enlarged. Preserved RV to LV ratio. There were diffuse coarse reticular infiltrates, as well as, groundglass lung attenuation, cystic changes, with concerns for interstitial lung disease. Patient does take Eliquis for his history of atrial fibrillation. Does state he has missed some doses lately. CBC: WBC count 22.6, hemoglobin 11, platelets 322. CMP: Sodium 133, potassium 4.2, chloride 101, serum bicarb 24, BUN 30, creatinine 1.27, glucose 135. Lactic 1.5. VBG with a pH of 7.5 and pCO2 of 32. EKG: Sinus rhythm, rate 65 bpm, left bundle branch block, not acute. Elevated serial troponins 0.049 and 0.055 respectively. NT proBNP elevated 8807. Patient is currently being evaluated in the emergency department. He is alert and some moderate respiratory distress. On BiPAP with settings 12/5 and FiO2 60%. Tachypneic, breathing around 40 breaths/min. Endorses progressive worsening difficulty in breathing over last couple days. He has tried to increase his supplemental oxygen at home without any relief. Denies previous history of DVT or PE. Associated nonproductive cough. Denies sputum production or hemoptysis. Substernal nonradiating chest pain persist. Denies any fevers or chills. Denies heart palpitations or syncopal events. Denies swelling in the lower extremities. Heart rhythm is normal sinus on bedside monitor. Blood pressure has been normotensive, did receive 2 L of crystalloid fluid bolus earlier. Not requiring any vasopressors. Normal saline is infusing at 150 mL/h. IV heparin infusing per protocol 08/06/2024, the patient is being seen for a follow-up. The patient is alternating between BiPAP at a pressure of 12/5 with an FiO2 of 60% and 15 L of oxygen by nasal cannula. He is getting slightly anxious and the patient is being provided Xanax accordingly. Fluid balance is -1.1 L over the past 24 hours. Limited echocardiogram was also done and it showed preserved LV function with an EF of around 55 to 60%. Valvular functions could not be accurately assessed as the patient's study was technically difficult study. There was however RV dilatation. Unable to estimate RV pressures. The electrolytes from today showed a creatinine of 1.5 with a BUN of 35. Bicarb is at 21. Sodium is at 132. The patient remains on DuoNeb updrafts. The patient remains on a combination of cefepime and vancomycin. The patient was taken off the IV heparin and the patient was started on anticoagulation with Eliquis. Remains on IV Solu-Medrol 60 mg every 6 hours. Remains on Aldactone. Remains on IV Lasix 40 mg every 12 hours. Objective - Vital Signs Vital signs: Vital Signs Temp 96.7 F L 08/06/24 04:00 Pulse 74 08/06/24 10:39 Resp 20 08/06/24 04:29 BP 130/67 08/06/24 04:00 Pulse Ox 91 L 08/06/24 10:19 FiO2 60 08/06/24 04:23 Intake & Output 08/05/24 08/06/24 08/06/24 18:59 06:59 18:59 Intake Total 285.192 757 Output Total 1300 900 Balance -1014.808 -143 Weight 113.5 kg Intake: Intake, IV Titration 285.192 0 Amount Heparin Sod,Pork in 0.45% 285.192 0 NaCl 25,000 unit In 0.45 % NaCl 1 250ml.bag @ 18 UNITS/KG/HR 20.412 mls/hr IV .[id number] [facility] Rx#: [id number] Oral 757 Output: Urine 1300 900 Other: Voiding Method Bedside Commode External Catheter - Exam GENERAL EXAM: Alert, 64-year-old male, 15 L of oxygen by nasal cannula, also alternating with BiPAP HEAD: Normocephalic and atraumatic EYES: Normal reaction of pupils, equal size. NOSE: Clear with pink turbinates. THROAT: No erythema or exudates. NECK: No masses, no JVD. CHEST: No chest wall deformity. LUNGS: Equal air entry with crackles heard on inspiration bilaterally. On BiPAP with settings 12/5 and FiO2 60%. Tachypneic breathing around 40 breaths/min. SpO2 reading 97% on bedside monitor. Conversational dyspnea. CVS: S1 and S2 normal with soft systolic murmur, regular rhythm. No other extra heart sounds ABDOMEN: No hepatosplenomegaly, active bowel sounds, no guarding or rigidity. SPINE: No scoliosis or deformity SKIN: No rashes CENTRAL NERVOUS SYSTEM: No focal deficits, tone is normal in all 4 extremities. EXTREMITIES: There is no peripheral edema, clubbing, or cyanosis. Peripheral pulses are intact. - Labs CBC & Chem 7: 08/05/24 05:48 08/06/24 07:16 Labs: Abnormal Lab Results - Last 24 Hours (Table) 08/05/24 08/05/24 08/05/24 Range/Units 12:01 16:53 16:57 APTT 130.6 H* (22.0-30.0) sec Sodium (137-145) mmol/L Potassium (3.5-5.1) mmol/L Carbon Dioxide (22-30) mmol/L BUN (9-20) mg/dL Creatinine (0.66-1.25) mg/dL Glucose (74-99) mg/dL POC Glucose (mg/dL) 338 H 276 H (70-110) mg/dL Calcium (8.4-10.2) mg/dL 08/05/24 08/06/24 08/06/24 Range/Units 21:24 01:25 06:31 APTT 61.1 H (22.0-30.0) sec Sodium (137-145) mmol/L Potassium (3.5-5.1) mmol/L Carbon Dioxide (22-30) mmol/L BUN (9-20) mg/dL Creatinine (0.66-1.25) mg/dL Glucose (74-99) mg/dL POC Glucose (mg/dL) 334 H 341 H (70-110) mg/dL Calcium (8.4-10.2) mg/dL 08/06/24 08/06/24 08/06/24 Range/Units 07:16 07:16 11:12 APTT 65.9 H (22.0-30.0) sec Sodium 132 L (137-145) mmol/L Potassium 3.4 L (3.5-5.1) mmol/L Carbon Dioxide 21 L (22-30) mmol/L BUN 35 H (9-20) mg/dL Creatinine 1.51 H (0.66-1.25) mg/dL Glucose 303 H (74-99) mg/dL POC Glucose (mg/dL) 382 H (70-110) mg/dL Calcium 7.9 L (8.4-10.2) mg/dL Microbiology - Last 24 Hours (Table) 08/04/24 20:48 Blood Culture - Preliminary Blood Assessment and Plan Assessment: Acute on chronic hypoxic respiratory failure. Multifactorial. Reviewed the CAT scan of the chest. The patient is changes with coarse infiltrates and cystic changes which could potentially suggest an underlying ILD. Nevertheless, the patient has developed bilateral pulmonary infiltrates could could be CHF/pneumonia/acute lung injury. The contrast administration was put on the CTA and I doubt the possibility of a pulmonary embolism. The patient is maintained on anticoagulation with Eliquis on an outpatient basis. He is currently on IV heparin. He is currently on diuretics. Is currently on a combination of cefepime and vancomycin. He is also on bronchodilators and steroids. He remains on amiodarone. Acute hypoxemic respiratory failure, currently requiring BiPAP support, secondary to a combination of above, chest x-ray showing multifocal infiltrates concerning for pneumonia or pulmonary edema. Follow-up chest CT showing diffuse coarse reticular infiltrates, as well as, groundglass lung attenuation upper lobe predominant cystic changes, with concerns for interstitial lung disease. The patient was given diuretics with improvement in his oxygenation and the patient seems to be less short of breath and currently on 15 L of oxygen nasal cannula. He is on and off still requiring BiPAP for respiratory support. Acute exacerbation of chronic systolic congestive heart failure, recent echocardiogram from 07/20/2024 estimating a left ventricular ejection fraction of 45 to 50%, moderate pulmonary hypertension, and moderate tricuspid regurgitation. Repeat echocardiogram showed improvement in LV function with ejection fraction 55% Acute leukocytosis Recent hospitalization with influenza A infection, completed course of Tamiflu CKD stage IIIa History of atrial fibrillation with previous cardioversion, currently normal sinus, normally maintained on Eliquis and amiodarone Chronic tobacco dependence with suspected underlying COPD Hypertension. Hyperlipidemia. Diabetes mellitus, type II. Plan: Continue BiPAP support with current settings, alternate with high flow nasal cannula at 15 L Anticoagulation with Eliquis has been started Continue bronchodilators Continue IV Solu-Medrol Continue IV Lasix 40 mg every 12 hours Continue empiric antibiotics and the patient is currently on a combination of cefepime and vancomycin Blood cultures are pending Check procalcitonin level is at 0.18 proBNP level is elevated Repeat chest x-ray in the morning Repeat blood work in the morning May need to transfer to the ICU if there is any further decompensation in respiratory status. Time with Patient: Greater than 30
--- NOTE | 2024-08-06 19:41 | P.PN ---
Progress Note - Text Progress Note Date: 08/06/24 Patient is a 64-year-old male with a PMH of atrial fibrillation on Eliquis, COPD on 2 L home oxygen, [id number] diabetes mellitus, hyperlipidemia, hypertension presenting with shortness of breath. Patient was previously admitted here for acute hypoxic respiratory failure secondary to influenza pneumonia and was discharged on 2 L of home oxygen. Patient states he has been feeling short of breath while at rest. He reports that since being discharged the home oxygen has not been sufficient. He states that he had to keep increasing his oxygen. Patient says shortness of breath is slightly relieved when he is laying down. Denies any orthopnea or PND. Patient endorses a nonpr oductive cough that is chronic in nature, but says it has been getting worse. Patient admits to having fever, chills. Patient also admits to having non- radiating, pressure-like chest pain over the last few days. Chest pain is not related to exertion and he had no alleviating or aggravating factors. Patient denies any headache, vision changes, nausea, vomiting, diarrhea, abdominal pain, urinary symptoms. EKG independently interpreted displaying sinus rhythm with left bundle branch block that has been seen on prior EKG, rate 65 bpm, QTc 451 ms CXR independently interpreted displaying bilateral multifocal airspace opacities Chest CTA displaying acute segmental and subsegmental pulmonary emboli within the right and middle lower lobes, no saddle embolus, no RV strain, chronic interstitial loading disease Venous Doppler B/L LE displaying no evidence of acute DVT Troponin 0.049, 0.055, proBNP 8810, D-dimer 4.87, WBC 22.6, Hgb 11.0, HCT 35.2, MCV 93.7, platelet 322, PT 11.8, INR 1.1, APTT 28, sodium 133, potassium 4.2, CO2 24, BUN 30, creatinine 1.27, glucose 135 VBG pH 7.52, pCO2 32 T98.2 F, MD 80, RR 26, BP 163/77, O2 sat 90% on BiPAP with FiO2 of 100% August 05: Overflow the ER. Up in the bed. Short of breath. Patient was on BiPAP overnight. This morning on 15 L high flow nasal cannula. Decreased appetite. Has got a cough. Some wheezing. Some sputum production. Decreased appetite. Patient is on IV heparin. Also on IV cefepime. Pulmonary following August 06: Patient did confirm that because Eliquis is very expensive patient was not taking it properly did and take it sparingly at home. Explains patient's PE. Started on Eliquis today by cardiology. IV heparin discontinued. Getting easily short of breath. Requiring BiPAP.. Some cough. Oral intake fair. On IV cefepime and vancomycin. ID following. Also on IV Lasix. Due to worsening renal function will DC vancomycin Active Medications Albuterol/Ipratropium (Ipratropium-Albuterol 3 Ml Neb) 3 ml INHALATION RT-QID PRN PRN Reason: Shortness Of Breath Or Wheezing Albuterol/Ipratropium (Ipratropium-Albuterol 3 Ml Neb) 3 ml INHALATION RT-Q4H [facility] Last Admin: 08/06/24 16:04 Dose: 3 ml Alprazolam (Alprazolam 0.5 Mg Tab) 0.5 mg PO TID PRN PRN Reason: Anxiety Last Admin: 08/06/24 16:02 Dose: 0.5 mg Amiodarone HCl (Amiodarone 200 Mg Tab) 200 mg PO DAILY [facility] Last Admin: 08/06/24 09:44 Dose: 200 mg Amlodipine Besylate (Amlodipine 5 Mg Tab) 5 mg PO DAILY [facility] Last Admin: 08/06/24 09:44 Dose: 5 mg Apixaban (Apixaban Initiation Dose--Vte 5 Mg Tab) 10 mg PO BID [facility]; Taper Stop: 09/05/24 10:14 Last Admin: 08/06/24 12:58 Dose: 10 mg Aspirin (Aspirin 81 Mg) 81 mg PO DAILY [facility] Last Admin: 08/06/24 09:44 Dose: 81 mg Atorvastatin Calcium (Atorvastatin 40 Mg Tab) 40 mg PO HS [facility] Last Admin: 08/05/24 22:25 Dose: 40 mg Budesonide (Budesonide 1 Mg/2 Ml Nebu) 1 mg INHALATION RT-BID [facility] Last Admin: 08/06/24 10:19 Dose: 1 mg Formoterol Fumarate (Formoterol Fumarate 20 Mcg/2 Ml Nebu) 20 mcg INHALATION RT-BID [facility] Last Admin: 08/06/24 10:19 Dose: 20 mcg Furosemide (Furosemide 10 Mg/Ml 4 Ml Vial) 40 mg IV Q12HR [facility] Last Admin: 08/06/24 09:43 Dose: 40 mg Vancomycin HCl 1,750 mg/ (Sodium Chloride) 500 mls @ 167 mls/hr IVPB Q16H [facility] Last Admin: 08/06/24 12:58 Dose: 167 mls/hr Cefepime HCl 2 gm/ Sodium (Chloride) 100 mls @ 25 mls/hr IVPB Q12H [facility]; Protocol Last Admin: 08/06/24 09:43 Dose: 25 mls/hr Insulin Human Lispro (Insulin Lispro (Humalog) 100 Unit/Ml 10 Ml Vl) 0 unit SQ ACHS [facility]; Protocol Last Admin: 08/06/24 17:15 Dose: 10 unit Lisinopril (Lisinopril 20 Mg Tab) 20 mg PO BID [facility] Last Admin: 08/06/24 09:44 Dose: 20 mg Lorazepam (Lorazepam 1 Mg Tab) 1 mg PO HS PRN PRN Reason: Anxiety Last Admin: 08/06/24 00:09 Dose: 1 mg Methylprednisolone Sodium Succinate (Methylprednisolone Sod Succi 125 Mg/2 Ml Vial) 60 mg IV Q6HR [facility] Last Admin: 08/06/24 17:15 Dose: 60 mg Metoprolol Succinate (Metoprolol Succinate (Er) 25 Mg Tab.Er.24h) 25 mg PO DAILY [facility] Last Admin: 08/06/24 09:44 Dose: 25 mg Morphine Sulfate (Morphine Sulfate 4 Mg/Ml Syringe) 4 mg IV Q4HR PRN PRN Reason: Severe Pain (Scale 7 to 10) Naloxone HCl (Naloxone 0.4 Mg/Ml 1 Ml Vial) 0.2 mg IV Q2M PRN PRN Reason: Opioid Reversal Ondansetron HCl (Ondansetron 4 Mg/2 Ml Vial) 4 mg IVP Q8HR PRN PRN Reason: Nausea And Vomiting Pantoprazole Sodium (Pantoprazole 40 Mg/10 Ml Vial) 40 mg IV DAILY [facility] Last Admin: 08/06/24 09:43 Dose: 40 mg Spironolactone (Spironolactone 25 Mg Tab) 25 mg PO DAILY [facility] Last Admin: 08/06/24 09:44 Dose: 25 mg Social history: Tobacco: Current [id number] smoker Alcohol: Occasional alcohol use Recreational drugs: Marijuana Travel: No recent travel On examination: VITAL SIGNS: 97.9, 76, 22, 150 x 67, 94% on BiPAP GENERAL APPEARANCE: Lying in bed, short of breath HEENT: Normal external appearance of nose and ear. Oral cavity normal EYES: Pupils equal. Conjunctiva normal. NECK: JVD not raised. Mass not palpable. RESPIRATORY: Respiratory effort increased, not able to speak in full sentences. Accessory muscles working. Lungs diminished breath sounds some scattered crackles prolonged expiration. CARDIOVASCULAR: First and second sounds normal. No edema. ABDOMEN: Soft. Liver and spleen not palpable. No tenderness. No mass palpable. PSYCHIATRY: Alert and oriented x3. Mood and affect anxious. INVESTIGATIONS, reviewed in the clinical context: August 06: Sodium 132 potassium 3.4 BUN 35 creatinine 1.51 August 05: White count 7.2 hemoglobin 10.3 platelets 242 sodium 136 potassium 3.8 BUN 28 creatinine 1.37 Troponin I: 0.049, 0.055, 0.051 Chest x-ray film personally reviewed by me-bilateral infiltrates. Effusion/pulm edema cardiomegaly. Venous Doppler: No DVT Chest CTA: Acute segmental and subsegmental pulm embolism within the right middle and right lower lobes. No RV strain. Chronic interstitial lung disease. Assessment/Plan: #. Acute pulmonary embolism, non-massive [segmental and subsegmental within the right middle and lower lobes. No RV strain IV heparin, switched over to Eliquis today -IV heparin monitoring: Discontinued #. Sepsis likely secondary to -viral pneumonia. Bacterial component cannot be ruled out IV cefepime. Vancomycin-ID following Nasal MRSA screen ordered Pulmonary following #. Acute hypoxic respiratory failure, secondary to above: Slow to respond Remains on BiPAP #. Acute COPD exacerbation, and a prior smoker: Slow to respond DuoNeb Q4. IV Solu-Medrol 60 mg Q6. Nebulized Pulmicort #. Acute on chronic heart failure with reduced ejection fraction (EF 45 to 50%) IV Lasix 40 mg every 12. Aldactone. #. Chronic hypoxic respiratory failure from underlying COPD, 2 L home O2 #. [id number] type 2 diabetes, uncontrolled with hyperglycemia secondary steroids Insulin subcu sliding scale. Start Levemir 18 units SQ nightly Accu-Cheks ACHS -Suspect underlying chronic kidney disease Renal ultrasound. Check UA. #. Essential hypertension Amlodipine. Zestril. #. Hyperlipidemia Lipitor -Full code Past Medical History Past Medical History: Atrial Fibrillation, Diabetes Mellitus, Hyperlipidemia, Hypertension, Pneumonia, Supraventricular Tachycardia (SVT) Additional Past Medical History / Comment(s): a fib, causes shortness of breath, can feel irregular heartbeat History of Any Multi-Drug Resistant Organisms: None Reported Past Surgical History: Cholecystectomy, Heart Catheterization Additional Past Surgical History / Comment(s): Colonoscopy Past Anesthesia/Blood Transfusion Reactions: No Reported Reaction Past Psychological History: No Psychological Hx Reported Smoking Status: Current every day smoker Past Alcohol Use History: Occasional Past Drug Use History: Marijuana
[2024-08-06 20:13] LABS: Glucose,Whole Blood 252 mg/dL (70-110)
[2024-08-06] MEDS: INSULIN GLARGINE (LANTUS) 100 UNIT/ML SYR SQ SCH (20:52)
[2024-08-06 21:17] LABS: Appearance,Urine Cloudy (Clear); Bacteria,Urine Occasional /hpf; Bilirubin,Urine Negative (Negative); Blood,Urine Negative (Negative); Color,Urine Light Yellow; Glucose,Urine (UA) Negative (Negative); Ketones,Urine Negative (Negative); Leukocyte Esterase,Urine Negative (Negative); Mucus,Urine Rare /hpf; Nitrite,Urine Negative (Negative); Protein,Urine 1+ (Negative); RBC,Urine <1 /hpf (0-5); Specific Gravity,Urine 1.021 (1.001-1.035); Urobilinogen,Urine <2.0 mg/dL (<2.0); WBC,Urine 2 /hpf (0-5)
[2024-08-07 06:11] LABS: Glucose,Whole Blood 317 mg/dL (70-110)
[2024-08-07 07:26] LABS: Basophils % (A) 0 %; Eosinophils % (A) 0 %; HCT 29.7 % (39.0-53.0); HGB 9.2 gm/dL (13.0-17.5); Lymphocytes # (A) 0.4 k/uL (1.0-4.8); Lymphocytes % (A) 2 %; MCH 29.2 pg (25.0-35.0); MCHC 31.1 g/dL (31.0-37.0); Mean Platelet Volume 9.2; Monocytes # (A) 0.4 k/uL (0-1.0); Monocytes % (A) 2 %; Neutrophils % (A) 96 %; Platelet Count 265 k/uL (150-450); RBC 3.16 m/uL (4.30-5.90); RDW 13.1 % (11.5-15.5); WBC 20.8 k/uL (3.8-10.6)
--- NOTE | 2024-08-07 07:31 | XR ---
EXAMINATION TYPE: XR chest 1V DATE OF EXAM: 08/07/2024 CLINICAL INDICATION: Male, 64 years old with history of compare to previous, pneumonia, progress stud y. TECHNIQUE: Single AP portable upright view of the chest is obtained. COMPARISON: Chest x-ray from 2 days earlier FINDINGS: Bilateral Multifocal increased opacities redemonstrated. Relative sparing of the left apex . Persistent cardiomegaly with atherosclerotic changes in the aortic knob. Osseous structures are int act. IMPRESSION: Persistent cardiomegaly with bilateral multifocal acute infiltrates and/or edema. Finding s are not significantly changed from most recent study. [facility], , 08/07/2024 7:29 AM
--- NOTE | 2024-08-07 07:49 | US ---
EXAMINATION TYPE: US kidneys/renal and bladder DATE OF EXAM: 08/07/2024 COMPARISON: 07/21/24 renal ultrasound. CLINICAL INDICATION: Male, 64 years old with history of Evaluate for CKD; CKD TECHNIQUE: Grayscale imaging of the bilateral kidneys and urinary bladder: FINDINGS: EXAM MEASUREMENTS: Right Kidney: 12.4x4.3x5.1 cm Left Kidney: 12.7x4.8x3.8 cm Right Kidney: No hydronephrosis or masses seen Left Kidney: small 1.2x0.9x1.0cm anechoic area at the superior lateral aspect of the kidney which can also be visualized on 08/04/24 CT angio chest consistent with simple thin-walled cyst. Bladder: posterior wall diverticula There is no evidence for hydronephrosis at this point in time. No nephrolithiasis is seen. No solid masses are identified. The urinary bladder is anechoic. Patient scanned semi erect, exam slightly limited by body habitus and labored breathing IMPRESSION: Suboptimal study without hydronephrosis identified bilaterally. [facility], Workstation: [id number], 08/07/2024 7:47 AM
[2024-08-07 07:55] LABS: ALT 39 U/L (4-49); AST 31 U/L (17-59); African American GFR (CKD) 54 (>60 ml/min/1.73 sqM); Albumin 2.9 g/dL (3.5-5.0); Alkaline Phosphatase 94 U/L (38-126); Anion Gap 10 mmol/L; Blood Urea Nitrogen 44 mg/dL (9-20); Calcium 8.2 mg/dL (8.4-10.2); Carbon Dioxide 23 mmol/L (22-30); Chloride 101 mmol/L (98-107); Glucose 282 mg/dL (74-99); Non-African American GFR(CKD) 46 (>60 ml/min/1.73 sqM); Potassium 3.4 mmol/L (3.5-5.1); Sodium 134 mmol/L (137-145); Total Bilirubin 0.7 mg/dL (0.2-1.3); Total Protein 5.8 g/dL (6.3-8.2)
[2024-08-07 11:20] LABS: Glucose,Whole Blood 375 mg/dL (70-110)
--- NOTE | 2024-08-07 13:46 | P.PN ---
Subjective Progress Note Date: 08/07/24 Reason for Consult (text): PE History of present illness: This is a 64-year-old male patient of Dr. Toledo with past medical history of chronic kidney disease stage III, COPD tobacco use, alcohol abuse, hypertension, diabetes mellitus type 2, persistent atrial fibrillation, systolic heart failure, recent GI bleed, family history of premature coronary artery disease. We have been asked to evaluate the patient for PE. Patient was recently hospitalized 07/20 - 07/31 and was seen by cardiology at that time for NSTEMI secondary to sepsis, influenza and pneumonia. Patient states that he was discharged home but he has had problems with getting his medications and has not been taking his medications after he was discharged. He states he could not af jones it because he no longer has Medicaid. Patient did go home on oxygen at 2 L nasal cannula. Patient states that he was having weakness at home could not do anything and he had significant dyspnea with even a small amount of activity. Patient is seen today in the emergency center on BiPAP. He is waiting for a bed on the cardiac stepdown unit. Pulmonary medicine is also on consult. Blood pr essure 156/72, heart rate 59, pulse ox 99% on BiPAP. Patient has been started on heparin drip, IV Solu-Medrol, IV antibiotics. -EKG: Sinus rhythm with left bundle branch block, left axis deviation. -Chest x-ray: Multifocal airspace opacities concerning for pneumonia. #2 persistent cardiomegaly with bilateral multifocal acute infiltrates and/or edema. Findings are worse in the bilateral lower lungs from 1 day earlier. -CTA chest: Acute segmental and subsegmental pulmonary emboli within the right middle and right lower lobes. No saddle embolus. No RV strain. Chronic interstitial lung disease with nonspecific features. -Laboratory studies: WBC 17.2, hemoglobin 10.3, D-dimer 4.87. Sodium 136, potassium 28 and creatinine 1.37, troponin 0.0490, 0.055 and 0.051. proBNP 8810. Influenza A detected. Procalcitonin 0.18.. -Home cardiac medications: Amiodarone 200 mg daily, Norvasc 5 mg daily, Eliquis 5 mg twice daily, atorvastatin 40 mg at bedtime, Lasix 40 mg daily, lisinopril 20 mg twice daily, metoprolol succinate 25 mg daily, spironolactone 25 mg daily. -ABHIJIT and cardioversion performed on 01/03/2023 revealed aortic valve is tricuspid, functioning normally with trace AI. Mitral valve appears to be normal with mild regurgitation. Tricuspid valve appears to be normal with moderate to severe tricuspid regurgitation. There is a PFO. Left atrial appendage is free of clot. EF 35%. -ABHIJIT and cardioversion performed 04/16/2022. -Dobutamine stress echocardiogram performed in the office on 12/27/2020 revealed nondiagnostic EKG portion secondary to baseline EKG abnormalities. Normal stress echo portion without inducible ischemia. Normal left ventricular ejection fraction of 60%. -Echocardiogram performed 07/20/2024: EF 45 to 50%, moderately increased septal wall thickness, moderate biatrial dilatation, moderate tricuspid regurgitation. 08/06 Patient is seen and examined on the cardiac stepdown unit. Blood pressure 143/70, heart rate 78, pulse ox 99% on BiPAP. Repeat blood work reveals BUN 35, creatinine 1.51, potassium 3.4. 08/07 Patient seen and examined. Patient has developed more hypoxia overnight requiring BiPAP and high flow nasal cannula was attempted yesterday. He has had no tachycardia no hypotension. Heart rate is in the 70s, blood pressure 145/67. Repeat blood work reveals WBC 20.8, hemoglobin 9.2, BUN 44 creatinine 1.54, potassium 3.4. Repeat chest x-ray reveals persistent cardiomegaly with bilateral multifocal acute infiltrates and/or edema. Physical examination: Gen: This is a 64-year-old male appears to be comfortable on BiPAP. VS: reviewed HEENT: Head is atraumatic, normocephalic. Pupils equal, round. Sclerae is anicteric. NECK: Supple. No JVD. LUNGS: Scattered rhonchi bilaterally. No intercostal retractions. HEART: Regular rate and rhythm. No murmur. ABDOMEN: Soft No tenderness. EXTREMITIES: No pedal edema. No calf tenderness. NEUROLOGICAL: Patient is awake, alert and oriented x3. Assessment: Acute pulmonary emboli due to prolonged hospitalization and unable to afford Eliquis No RV strain on CT Acute hypoxic respiratory failure requiring BiPAP secondary to influenza, pneumonia, and component of heart failure NSTEMI secondary to PE, influenza and pneumonia Influenza A Pneumonia Acute on chronic systolic heart failure Acute kidney injury Cardiomyopathy with previous EF of 15 to 20%, possibly tachycardia induced Hypertension Hyperlipidemia Persistent atrial fibrillation status post previous cardioversion x 2, currently in sinus rhythm Diabetes mellitus type 2 Plan: No evidence of RV strain on CT. Patient has no hypotension or shock symptoms. Patient does not require any local or systemic thrombolytics at this time. Continue patient's home cardiac medications Continue Eliquis VTE protocol, prescription will be sent to the pharmacy and is covered by insurance Continue IV Lasix 40 mg every 12 hours Monitor CHOCO, daily weights, electrolytes and renal function No need to repeat echocardiogram Further recommendations to follow based upon clinical course Nurse practitioner note has been reviewed, I agree with documented findings and plan of care. Patient was seen and examined. Objective - Vital Signs Vital signs: Vital Signs Temp 98.3 F 08/07/24 08:20 Pulse 72 08/07/24 11:57 Resp 28 H 08/07/24 08:20 BP 145/67 08/07/24 08:20 Pulse Ox 94 L 08/07/24 08:20 FiO2 60 08/07/24 11:38 Intake & Output 08/06/24 08/07/24 08/07/24 18:59 06:59 18:59 Intake Total 480 Output Total 850 400 600 Balance -370 -400 -600 Weight 113.5 kg Intake: Oral 480 Output: Urine 850 400 600 Other: Voiding Method Bedside Commode Bedside Commode Bedside Commode External Catheter External Catheter External Catheter - Labs CBC & Chem 7: 08/07/24 06:52 08/07/24 06:52 Labs: Abnormal Lab Results - Last 24 Hours (Table) 08/06/24 08/06/24 08/06/24 Range/Units 16:24 20:11 20:52 WBC (3.8-10.6) k/uL RBC (4.30-5.90) m/uL Hgb (13.0-17.5) gm/dL Hct (39.0-53.0) % Neutrophils # (1.3-7.7) k/uL Lymphocytes # (1.0-4.8) k/uL Sodium (137-145) mmol/L Potassium (3.5-5.1) mmol/L BUN (9-20) mg/dL Creatinine (0.66-1.25) mg/dL Glucose (74-99) mg/dL POC Glucose (mg/dL) 363 H 252 H (70-110) mg/dL Calcium (8.4-10.2) mg/dL Total Protein (6.3-8.2) g/dL Albumin (3.5-5.0) g/dL Urine Protein 1+ H (Negative) Urine Bacteria Occasional H (None) /hpf Urine Mucus Rare H (None) /hpf 08/07/24 08/07/24 08/07/24 Range/Units 06:09 06:52 06:52 WBC 20.8 H (3.8-10.6) k/uL RBC 3.16 L (4.30-5.90) m/uL Hgb 9.2 L (13.0-17.5) gm/dL Hct 29.7 L (39.0-53.0) % Neutrophils # 20.0 H (1.3-7.7) k/uL Lymphocytes # 0.4 L (1.0-4.8) k/uL Sodium 134 L (137-145) mmol/L Potassium 3.4 L (3.5-5.1) mmol/L BUN 44 H (9-20) mg/dL Creatinine 1.54 H (0.66-1.25) mg/dL Glucose 282 H (74-99) mg/dL POC Glucose (mg/dL) 317 H (70-110) mg/dL Calcium 8.2 L (8.4-10.2) mg/dL Total Protein 5.8 L (6.3-8.2) g/dL Albumin 2.9 L (3.5-5.0) g/dL Urine Protein (Negative) Urine Bacteria (None) /hpf Urine Mucus (None) /hpf 08/07/24 Range/Units 11:18 WBC (3.8-10.6) k/uL RBC (4.30-5.90) m/uL Hgb (13.0-17.5) gm/dL Hct (39.0-53.0) % Neutrophils # (1.3-7.7) k/uL Lymphocytes # (1.0-4.8) k/uL Sodium (137-145) mmol/L Potassium (3.5-5.1) mmol/L BUN (9-20) mg/dL Creatinine (0.66-1.25) mg/dL Glucose (74-99) mg/dL POC Glucose (mg/dL) 375 H (70-110) mg/dL Calcium (8.4-10.2) mg/dL Total Protein (6.3-8.2) g/dL Albumin (3.5-5.0) g/dL Urine Protein (Negative) Urine Bacteria (None) /hpf Urine Mucus (None) /hpf Microbiology - Last 24 Hours (Table) 08/04/24 20:48 Blood Culture - Preliminary Blood
[2024-08-07] MEDS: ITRACONAZOLE 100 MG CAP PO SCH (14:52)
[2024-08-07] MEDS: LEVOFLOXACIN 750 MG TAB PO SCH (14:52)
[2024-08-07] MEDS: ONDANSETRON 4 MG/2 ML VIAL IVP PRN (14:52)
[2024-08-07] MEDS: POTASSIUM CHLORIDE ER 20 MEQ TAB.ER PO SCH (14:52)
--- NOTE | 2024-08-07 15:51 | P.PN ---
Subjective Progress Note Date: 08/07/24 Principal diagnosis: Reason for follow-up is pneumonia Patient is a 64-year-old male with a past medical history significant for diabetes mellitus hypertension hyperlipidemia pneumonia atrial fibrillation currently everyday smoker presenting to the hospital for evaluation of increasing shortness of breath patient has been diagnosed with multifocal pneumonia prompting this consultation. On today's evaluation that is 08/07/2024, the patient continues to be afebrile, the patient has been on BiPAP requiring 60% FiO2 with complaining of shortness of breath chest pain and cough no vomiting or diarrhea has been reported. Patient white count is 20.8, creatinine is 1.54 blood cultures pending sputum culture not collected Objective - Vital Signs Vital signs: Vital Signs Temp 98.3 F 08/07/24 08:20 Pulse 80 08/07/24 15:38 Resp 28 H 08/07/24 08:20 BP 145/67 08/07/24 08:20 Pulse Ox 94 L 08/07/24 08:20 FiO2 60 08/07/24 11:38 Intake & Output 08/06/24 08/07/24 08/07/24 18:59 06:59 18:59 Intake Total 480 Output Total 850 400 600 Balance -370 -400 -600 Weight 113.5 kg Intake: Oral 480 Output: Urine 850 400 600 Other: Voiding Method Bedside Commode Bedside Commode Bedside Commode External Catheter External Catheter External Catheter - Exam GENERAL DESCRIPTION: An elderly male lying in bed in no distress RESPIRATORY SYSTEM: Unlabored breathing , coarse breath sounds bilaterally HEART: S1 S2 regular rate and rhythm , ABDOMEN: Soft , no tenderness EXTREMITIES: No edema feet - Labs CBC & Chem 7: 08/07/24 06:52 08/07/24 06:52 Labs: Abnormal Lab Results - Last 24 Hours (Table) 08/06/24 08/06/24 08/06/24 Range/Units 16:24 20:11 20:52 WBC (3.8-10.6) k/uL RBC (4.30-5.90) m/uL Hgb (13.0-17.5) gm/dL Hct (39.0-53.0) % Neutrophils # (1.3-7.7) k/uL Lymphocytes # (1.0-4.8) k/uL Sodium (137-145) mmol/L Potassium (3.5-5.1) mmol/L BUN (9-20) mg/dL Creatinine (0.66-1.25) mg/dL Glucose (74-99) mg/dL POC Glucose (mg/dL) 363 H 252 H (70-110) mg/dL Calcium (8.4-10.2) mg/dL Total Protein (6.3-8.2) g/dL Albumin (3.5-5.0) g/dL Urine Protein 1+ H (Negative) Urine Bacteria Occasional H (None) /hpf Urine Mucus Rare H (None) /hpf 08/07/24 08/07/24 08/07/24 Range/Units 06:09 06:52 06:52 WBC 20.8 H (3.8-10.6) k/uL RBC 3.16 L (4.30-5.90) m/uL Hgb 9.2 L (13.0-17.5) gm/dL Hct 29.7 L (39.0-53.0) % Neutrophils # 20.0 H (1.3-7.7) k/uL Lymphocytes # 0.4 L (1.0-4.8) k/uL Sodium 134 L (137-145) mmol/L Potassium 3.4 L (3.5-5.1) mmol/L BUN 44 H (9-20) mg/dL Creatinine 1.54 H (0.66-1.25) mg/dL Glucose 282 H (74-99) mg/dL POC Glucose (mg/dL) 317 H (70-110) mg/dL Calcium 8.2 L (8.4-10.2) mg/dL Total Protein 5.8 L (6.3-8.2) g/dL Albumin 2.9 L (3.5-5.0) g/dL Urine Protein (Negative) Urine Bacteria (None) /hpf Urine Mucus (None) /hpf 08/07/24 Range/Units 11:18 WBC (3.8-10.6) k/uL RBC (4.30-5.90) m/uL Hgb (13.0-17.5) gm/dL Hct (39.0-53.0) % Neutrophils # (1.3-7.7) k/uL Lymphocytes # (1.0-4.8) k/uL Sodium (137-145) mmol/L Potassium (3.5-5.1) mmol/L BUN (9-20) mg/dL Creatinine (0.66-1.25) mg/dL Glucose (74-99) mg/dL POC Glucose (mg/dL) 375 H (70-110) mg/dL Calcium (8.4-10.2) mg/dL Total Protein (6.3-8.2) g/dL Albumin (3.5-5.0) g/dL Urine Protein (Negative) Urine Bacteria (None) /hpf Urine Mucus (None) /hpf Microbiology - Last 24 Hours (Table) 08/04/24 20:48 Blood Culture - Preliminary Blood Assessment and Plan (1) Leukocytosis Current Visit: Yes Status: Acute Code(s): D72.829 - ELEVATED WHITE BLOOD CELL COUNT, UNSPECIFIED SNOMED Code(s): 404690945 (2) Bilateral pneumonia Current Visit: Yes Status: Acute Code(s): J18.9 - PNEUMONIA, UNSPECIFIED ORGANISM SNOMED Code(s): 422405763 Plan: 1patient presented hospital with increasing shortness of breath and chest pain which is likely multifactorial in this patient who did have evidence of PE on the CT there is also evidence of multifocal pneumonia with elevated white count and recently acute influenza A will need to cover for resistant gram-positive as well as gram-negative pathogen for post influenza pneumonia 2-sputum has not been collected blood culture currently pending 3-patient is currently on cefepime itraconazole has been added concerning for possible fungal component discussed with the pulmonary patient is considered high risk bronchoscopy and will monitor clinical course closely Dictation was produced using [employer] dictation software. please excuse any g rammatical, word or spelling errors. Time with Patient: Less than 30
[2024-08-07 16:47] LABS: Glucose,Whole Blood 299 mg/dL (70-110)
--- NOTE | 2024-08-07 16:59 | P.PN ---
Progress Note - Text Progress Note Date: 08/07/24 Patient is a 64-year-old male with a PMH of atrial fibrillation on Eliquis, COPD on 2 L home oxygen, gyo-[id number]-[id number] diabetes mellitus, hyperlipidemia, hypertension presenting with shortness of breath. Patient was previously admitted here for acute hypoxic respiratory failure secondary to influenza pneumonia and was discharged on 2 L of home oxygen. Patient states he has been feeling short of breath while at rest. He reports that since being discharged the home oxygen has not been sufficient. He states that he had to keep increasing his oxygen. Patient says shortness of breath is slightly relieved when he is laying down. Denies any orthopnea or PND. Patient endorses a nonpr oductive cough that is chronic in nature, but says it has been getting worse. Patient admits to having fever, chills. Patient also admits to having non- radiating, pressure-like chest pain over the last few days. Chest pain is not related to exertion and he had no alleviating or aggravating factors. Patient denies any headache, vision changes, nausea, vomiting, diarrhea, abdominal pain, urinary symptoms. EKG independently interpreted displaying sinus rhythm with left bundle branch block that has been seen on prior EKG, rate 65 bpm, QTc 451 ms CXR independently interpreted displaying bilateral multifocal airspace opacities Chest CTA displaying acute segmental and subsegmental pulmonary emboli within the right and middle lower lobes, no saddle embolus, no RV strain, chronic interstitial loading disease Venous Doppler B/L LE displaying no evidence of acute DVT Troponin 0.049, 0.055, proBNP 8810, D-dimer 4.87, WBC 22.6, Hgb 11.0, HCT 35.2, MCV 93.7, platelet 322, PT 11.8, INR 1.1, APTT 28, sodium 133, potassium 4.2, CO2 24, BUN 30, creatinine 1.27, glucose 135 VBG pH 7.52, pCO2 32 T98.2 F, WA 80, RR 26, BP 163/77, O2 sat 90% on BiPAP with FiO2 of 100% August 05: Overflow the ER. Up in the bed. Short of breath. Patient was on BiPAP overnight. This morning on 15 L high flow nasal cannula. Decreased appetite. Has got a cough. Some wheezing. Some sputum production. Decreased appetite. Patient is on IV heparin. Also on IV cefepime. Pulmonary following August 06: Patient did confirm that because Eliquis is very expensive patient was not taking it properly did and take it sparingly at home. Explains patient's PE. Started on Eliquis today by cardiology. IV heparin discontinued. Getting easily short of breath. Requiring BiPAP.. Some cough. Oral intake fair. On IV cefepime and vancomycin. ID following. Also on IV Lasix. Due to worsening renal function will DC vancomycin August 07: Saw this afternoon. On BiPAP. 60%. Ensure ordered. All blood work ordered by pulmonary including fungal. Patient currently on IV cefepime and Levaquin. IV Solu-Medrol. Remain short of breath. Tired. Being followed by pulmonary and ID. Chest x-ray film personally reviewed by me-showing pulm edema bilateral infiltrates especially at the bases. Renal ultrasound nonspecific. UA showing protein 1+. Active Medications Albuterol/Ipratropium (Ipratropium-Albuterol 3 Ml Neb) 3 ml INHALATION RT-QID PRN PRN Reason: Shortness Of Breath Or Wheezing Albuterol/Ipratropium (Ipratropium-Albuterol 3 Ml Neb) 3 ml INHALATION RT-Q4H [facility] Last Admin: 08/07/24 15:37 Dose: 3 ml Alprazolam (Alprazolam 0.5 Mg Tab) 0.5 mg PO TID PRN PRN Reason: Anxiety Last Admin: 08/07/24 11:32 Dose: 0.5 mg Amlodipine Besylate (Amlodipine 5 Mg Tab) 5 mg PO DAILY [facility] Last Admin: 08/07/24 09:18 Dose: 5 mg Apixaban (Apixaban Initiation Dose--Vte 5 Mg Tab) 10 mg PO BID [facility]; Taper Stop: 09/05/24 10:14 Last Admin: 08/07/24 09:18 Dose: 10 mg Aspirin (Aspirin 81 Mg) 81 mg PO DAILY [facility] Last Admin: 08/07/24 09:18 Dose: 81 mg Budesonide (Budesonide 1 Mg/2 Ml Nebu) 1 mg INHALATION RT-BID [facility] Last Admin: 08/07/24 08:12 Dose: 1 mg Formoterol Fumarate (Formoterol Fumarate 20 Mcg/2 Ml Nebu) 20 mcg INHALATION RT-BID [facility] Last Admin: 08/07/24 08:12 Dose: 20 mcg Furosemide (Furosemide 10 Mg/Ml 4 Ml Vial) 40 mg IV Q12HR [facility] Last Admin: 08/07/24 09:19 Dose: 40 mg Cefepime HCl 2 gm/ Sodium (Chloride) 100 mls @ 25 mls/hr IVPB Q12H [facility]; Protocol Last Admin: 08/07/24 09:19 Dose: 25 mls/hr Insulin Glargine (Insulin Glargine (Lantus) 100 Unit/Ml Syr) 18 unit SQ HS [facility] Last Admin: 08/06/24 20:52 Dose: 18 unit Insulin Human Lispro (Insulin Lispro (Humalog) 100 Unit/Ml 10 Ml Vl) 0 unit SQ ACHS [facility]; Protocol Last Admin: 08/07/24 11:34 Dose: 10 unit Itraconazole (Itraconazole 100 Mg Cap) 200 mg PO BID [facility]; Protocol Last Admin: 08/07/24 14:52 Dose: 200 mg Levofloxacin (Levofloxacin 750 Mg Tab) 750 mg PO Q48H [facility]; Protocol Lisinopril (Lisinopril 20 Mg Tab) 20 mg PO BID [facility] Last Admin: 08/07/24 09:19 Dose: 20 mg Lorazepam (Lorazepam 1 Mg Tab) 1 mg PO HS PRN PRN Reason: Anxiety Last Admin: 08/06/24 00:09 Dose: 1 mg Methylprednisolone Sodium Succinate (Methylprednisolone Sod Succi 125 Mg/2 Ml Vial) 60 mg IV Q6HR [facility] Last Admin: 08/07/24 11:33 Dose: 60 mg Metoprolol Succinate (Metoprolol Succinate (Er) 25 Mg Tab.Er.24h) 25 mg PO DAILY [facility] Last Admin: 08/07/24 09:18 Dose: 25 mg Morphine Sulfate (Morphine Sulfate 4 Mg/Ml Syringe) 4 mg IV Q4HR PRN PRN Reason: Severe Pain (Scale 7 to 10) Naloxone HCl (Naloxone 0.4 Mg/Ml 1 Ml Vial) 0.2 mg IV Q2M PRN PRN Reason: Opioid Reversal Ondansetron HCl (Ondansetron 4 Mg/2 Ml Vial) 4 mg IVP Q8HR PRN PRN Reason: Nausea And Vomiting Last Admin: 08/07/24 14:52 Dose: 4 mg Pantoprazole Sodium (Pantoprazole 40 Mg/10 Ml Vial) 40 mg IV DAILY [facility] Last Admin: 08/07/24 09:19 Dose: 40 mg Potassium Chloride (Potassium Chloride Er 20 Meq Tab.Er) 20 meq PO DAILY [facility] Last Admin: 08/07/24 14:52 Dose: 20 meq Spironolactone (Spironolactone 25 Mg Tab) 25 mg PO DAILY [facility] Last Admin: 08/07/24 09:19 Dose: 25 mg Social history: Tobacco: Current [id number] smoker Alcohol: Occasional alcohol use Recreational drugs: Marijuana Travel: No recent travel On examination: VITAL SIGNS: 98.2, 77, 28, 145 x 67, 94% on BiPAP 60%, 12/5 GENERAL APPEARANCE: Reclining in bed short of breath HEENT: Normal external appearance of nose and ear. Oral cavity normal EYES: Pupils equal. Conjunctiva normal. NECK: JVD not raised. Mass not palpable. RESPIRATORY: Respiratory effort increased, not able to speak in full sentences. Accessory muscles working. Lungs diminished breath sounds some scattered crackles prolonged expiration. CARDIOVASCULAR: First and second sounds normal. No edema. ABDOMEN: Soft. Liver and spleen not palpable. No tenderness. No mass palpable. PSYCHIATRY: Alert and oriented x3. Mood and affect anxious. INVESTIGATIONS, reviewed in the clinical context: August 07: White count 20.8 hemoglobin 9.2 platelets 265 sodium 134 BUN 44 creatinine 1.54. Chest x-ray: Pulm edema/bilateral infiltrates August 06: Sodium 132 potassium 3.4 BUN 35 creatinine 1.51 August 05: White count 7.2 hemoglobin 10.3 platelets 242 sodium 136 potassium 3.8 BUN 28 creatinine 1.37 Troponin I: 0.049, 0.055, 0.051 Chest x-ray film personally reviewed by pa-bilateral infiltrates. Effusion/pulm edema cardiomegaly. Venous Doppler: No DVT Chest CTA: Acute segmental and subsegmental pulm embolism within the right middle and right lower lobes. No RV strain. Chronic interstitial lung disease. Previous labs: Creatinine 1.63 in October 2022 Assessment/Plan: #. Acute pulmonary embolism, non-massive [segmental and subsegmental within the right middle and lower lobes. No RV strain IV heparin, switched over to Eliquis #. Sepsis likely secondary to -viral pneumonia. Secondary bacterial component cannot be ruled out IV cefepime. And Levaquin-ID following Nasal MRSA screen ordered Pulmonary following #. Acute hypoxic respiratory failure, secondary to above: Slow to respond Remains on BiPAP, 60% #. Acute COPD exacerbation, and a prior smoker: Slow to respond DuoNeb Q4. IV Solu-Medrol 60 mg Q6. Nebulized Pulmicort #. Acute on chronic heart failure with reduced ejection fraction (EF 45 to 50%): Slow to respond IV Lasix 40 mg every 12. Aldactone. #. Chronic hypoxic respiratory failure from underlying COPD, 2 L home O2 #. [id number] type 2 diabetes, uncontrolled with hyperglycemia secondary steroids Insulin subcu sliding scale. Increase Levemir 26 units SQ nightly Accu-Cheks ACHS - chronic kidney disease stage III from nephrosclerosis and diabetic nephropathy [creatinine 1.63 in October 2022] Renal ultrasound.: Suboptimal study. No corticomedullary comment. UA protein 1+ #. Essential hypertension Amlodipine. Zestril. #. Hyperlipidemia Lipitor -Full code Past Medical History Past Medical History: Atrial Fibrillation, Diabetes Mellitus, Hyperlipidemia, Hypertension, Pneumonia, Supraventricular Tachycardia (SVT) Additional Past Medical History / Comment(s): a fib, causes shortness of breath, can feel irregular heartbeat History of Any Multi-Drug Resistant Organisms: None Reported Past Surgical History: Cholecystectomy, Heart Catheterization Additional Past Surgical History / Comment(s): Colonoscopy Past Anesthesia/Blood Transfusion Reactions: No Reported Reaction Past Psychological History: No Psychological Hx Reported Smoking Status: Current every day smoker Past Alcohol Use History: Occasional Past Drug Use History: Marijuana
--- NOTE | 2024-08-07 17:11 | P.PN ---
Subjective Progress Note Date: 08/07/24 Patient is a 64-year-old male with past medical history significant for atrial fibrillation, diabetes mellitus, CKD stage III, hypertension, hyperlipidemia, tobacco smoker. Of note, recently had a prolonged hospitalization 07/19/2024 through 07/31/2024. Treated for combination of influenza A, pneumonia, CHF. Completed course of antibiotics and Tamiflu. At this time, did require noninvasive BiPAP, eventually discharged on home O2. Returns with a chief complaint of shortness of breath progressing over the last 2 to 3 days. Also, reports sudden onset substernal chest pain that developed the night prior and has been persistent. On arrival to the ED, found to be in some respiratory distress, and placed on BiPAP. Workup in the emergency department including a chest x-ray showing multifocal infiltrates concerning for pneumonia or pulmonary edema. D-dimer was elevated in setting CT angio protocol which was positive for segmental and subsegmental right middle lobe and right lower lobe pulmonary emboli. No saddle pulmonary embolus. Pulmonary artery mildly enlarged. Preserved RV to LV ratio. There were diffuse coarse reticular infiltrates, as well as, groundglass lung attenuation, cystic changes, with concerns for interstitial lung disease. Patient does take Eliquis for his history of atrial fibrillation. Does state he has missed some doses lately. CBC: WBC count 22.6, hemoglobin 11, platelets 322. CMP: Sodium 133, potassium 4.2, chloride 101, serum bicarb 24, BUN 30, creatinine 1.27, glucose 135. Lactic 1.5. VBG with a pH of 7.5 and pCO2 of 32. EKG: Sinus rhythm, rate 65 bpm, left bundle branch block, not acute. Elevated serial troponins 0.049 and 0.055 respectively. NT proBNP elevated 8807. Patient is currently being evaluated in the emergency department. He is alert and some moderate respiratory distress. On BiPAP with settings 12/5 and FiO2 60%. Tachypneic, breathing around 40 breaths/min. Endorses progressive worsening difficulty in breathing over last couple days. He has tried to increase his supplemental oxygen at home without any relief. Denies previous history of DVT or PE. Associated nonproductive cough. Denies sputum production or hemoptysis. Substernal nonradiating chest pain persist. Denies any fevers or chills. Denies heart palpitations or syncopal events. Denies swelling in the lower extremities. Heart rhythm is normal sinus on bedside monitor. Blood pressure has been normotensive, did receive 2 L of crystalloid fluid bolus earlier. Not requiring any vasopressors. Normal saline is infusing at 150 mL/h. IV heparin infusing per protocol 08/06/2024, the patient is being seen for a follow-up. The patient is alternating between BiPAP at a pressure of 12/5 with an FiO2 of 60% and 15 L of oxygen by nasal cannula. He is getting slightly anxious and the patient is being provided Xanax accordingly. Fluid balance is -1.1 L over the past 24 hours. Limited echocardiogram was also done and it showed preserved LV function with an EF of around 55 to 60%. Valvular functions could not be accurately assessed as the patient's study was technically difficult study. There was however RV dilatation. Unable to estimate RV pressures. The electrolytes from today showed a creatinine of 1.5 with a BUN of 35. Bicarb is at 21. Sodium is at 132. The patient remains on DuoNeb updrafts. The patient remains on a combination of cefepime and vancomycin. The patient was taken off the IV heparin and the patient was started on anticoagulation with Eliquis. Remains on IV Solu-Medrol 60 mg every 6 hours. Remains on Aldactone. Remains on IV Lasix 40 mg every 12 hours. On today's evaluation of 08/07/2024, the patient is overall condition is essentially unchanged. Continues to be hypoxic, continues to be on BiPAP and the patient remains at a pressure of 12/5 with an FiO2 of 60%. Continues to h ave crackles in lung base bilaterally. White cell count remains elevated at 20 with a hemoglobin 9.2. Very much BiPAP dependent as the patient desaturates once taken off the BiPAP. BUN is 44 with a platelet of 1.5. Sodium levels at 134 and a potassium level is at 3.4. Remains on DuoNeb updrafts. Remains on IV Lasix 40 mg every 12 hours. Remains on Aldactone. Remains on bronchodilators. Remains on steroids. Empiric antibiotic coverage with IV cefepime. Reviewed the CAT scan again and there is some chronic interstitial changes and the patient has diffuse infiltrates with areas of groundglass. Consider acute interstitial pneumonias. Consider fungal pneumonias. Objective - Vital Signs Vital signs: Vital Signs Temp 98.3 F 08/07/24 08:20 Pulse 72 08/07/24 11:57 Resp 28 H 08/07/24 08:20 BP 145/67 08/07/24 08:20 Pulse Ox 94 L 08/07/24 08:20 FiO2 60 08/07/24 11:38 Intake & Output 08/06/24 08/07/24 08/07/24 18:59 06:59 18:59 Intake Total 480 Output Total 850 400 600 Balance -370 -400 -600 Weight 113.5 kg Intake: Oral 480 Output: Urine 850 400 600 Other: Voiding Method Bedside Commode Bedside Commode Bedside Commode External Catheter External Catheter External Catheter - Exam GENERAL EXAM: Alert, 64-year-old male, on BiPAP 12/5 with an FiO2 of 60% HEAD: Normocephalic and atraumatic EYES: Normal reaction of pupils, equal size. NOSE: Clear with pink turbinates. THROAT: No erythema or exudates. NECK: No masses, no JVD. CHEST: No chest wall deformity. LUNGS: Equal air entry with crackles heard on inspiration bilaterally. On BiPAP with settings 12/5 and FiO2 60%. SpO2 reading 97% on bedside monitor. Conversational dyspnea. CVS: S1 and S2 normal with soft systolic murmur, regular rhythm. No other extra heart sounds ABDOMEN: No hepatosplenomegaly, active bowel sounds, no guarding or rigidity. SPINE: No scoliosis or deformity SKIN: No rashes CENTRAL NERVOUS SYSTEM: No focal deficits, tone is normal in all 4 extremities. EXTREMITIES: There is no peripheral edema, clubbing, or cyanosis. Peripheral pulses are intact. - Labs CBC & Chem 7: 08/07/24 06:52 08/07/24 06:52 Labs: Abnormal Lab Results - Last 24 Hours (Table) 08/06/24 08/06/24 08/06/24 Range/Units 16:24 20:11 20:52 WBC (3.8-10.6) k/uL RBC (4.30-5.90) m/uL Hgb (13.0-17.5) gm/dL Hct (39.0-53.0) % Neutrophils # (1.3-7.7) k/uL Lymphocytes # (1.0-4.8) k/uL Sodium (137-145) mmol/L Potassium (3.5-5.1) mmol/L BUN (9-20) mg/dL Creatinine (0.66-1.25) mg/dL Glucose (74-99) mg/dL POC Glucose (mg/dL) 363 H 252 H (70-110) mg/dL Calcium (8.4-10.2) mg/dL Total Protein (6.3-8.2) g/dL Albumin (3.5-5.0) g/dL Urine Protein 1+ H (Negative) Urine Bacteria Occasional H (None) /hpf Urine Mucus Rare H (None) /hpf 08/07/24 08/07/24 08/07/24 Range/Units 06:09 06:52 06:52 WBC 20.8 H (3.8-10.6) k/uL RBC 3.16 L (4.30-5.90) m/uL Hgb 9.2 L (13.0-17.5) gm/dL Hct 29.7 L (39.0-53.0) % Neutrophils # 20.0 H (1.3-7.7) k/uL Lymphocytes # 0.4 L (1.0-4.8) k/uL Sodium 134 L (137-145) mmol/L Potassium 3.4 L (3.5-5.1) mmol/L BUN 44 H (9-20) mg/dL Creatinine 1.54 H (0.66-1.25) mg/dL Glucose 282 H (74-99) mg/dL POC Glucose (mg/dL) 317 H (70-110) mg/dL Calcium 8.2 L (8.4-10.2) mg/dL Total Protein 5.8 L (6.3-8.2) g/dL Albumin 2.9 L (3.5-5.0) g/dL Urine Protein (Negative) Urine Bacteria (None) /hpf Urine Mucus (None) /hpf 08/07/24 Range/Units 11:18 WBC (3.8-10.6) k/uL RBC (4.30-5.90) m/uL Hgb (13.0-17.5) gm/dL Hct (39.0-53.0) % Neutrophils # (1.3-7.7) k/uL Lymphocytes # (1.0-4.8) k/uL Sodium (137-145) mmol/L Potassium (3.5-5.1) mmol/L BUN (9-20) mg/dL Creatinine (0.66-1.25) mg/dL Glucose (74-99) mg/dL POC Glucose (mg/dL) 375 H (70-110) mg/dL Calcium (8.4-10.2) mg/dL Total Protein (6.3-8.2) g/dL Albumin (3.5-5.0) g/dL Urine Protein (Negative) Urine Bacteria (None) /hpf Urine Mucus (None) /hpf Microbiology - Last 24 Hours (Table) 08/04/24 20:48 Blood Culture - Preliminary Blood Assessment and Plan Assessment: Acute on chronic hypoxic respiratory failure. Multifactorial. Reviewed the CAT scan of the chest. The patient is changes with coarse infiltrates and cystic changes which could potentially suggest an underlying ILD. Nevertheless, the patient has developed bilateral pulmonary infiltrates could could be CHF/pneumonia/acute lung injury. The contrast administration was put on the CTA and I doubt the possibility of a pulmonary embolism. The patient is maintained on anticoagulation with Eliquis on an outpatient basis. He is currently on IV heparin. He is currently on diuretics. Is currently on a combination of cefepime and vancomycin. He is also on bronchodilators and steroids. He remains on amiodarone. Possibility of acute interstitial pneumonia is/acute lung injury/ARDS need to be considered. Fungal infections are also considered. Acute hypoxemic respiratory failure, currently requiring BiPAP support, secondary to a combination of above, chest x-ray showing multifocal infiltrates concerning for pneumonia or pulmonary edema. Follow-up chest CT showing diffuse coarse reticular infiltrates, as well as, groundglass lung attenuation upper lobe predominant cystic changes, with concerns for interstitial lung disease. The patient remains on a BiPAP at a pressure of 12/5 with an FiO2 of 60%. Overall condition is unchanged compared to yesterday Acute exacerbation of chronic systolic congestive heart failure, recent echocardiogram from 07/20/2024 estimating a left ventricular ejection fraction of 45 to 50%, moderate pulmonary hypertension, and moderate tricuspid regurgitation. Repeat echocardiogram showed improvement in LV function with ejection fraction 55% Acute leukocytosis Recent hospitalization with influenza A infection, completed course of Tamiflu CKD stage IIIa History of atrial fibrillation with previous cardioversion, currently normal sinus, normally maintained on Eliquis and amiodarone Chronic tobacco dependence with suspected underlying COPD Hypertension. Hyperlipidemia. Diabetes mellitus, type II. Plan: Continue BiPAP support with current settings, Anticoagulation with Eliquis has been started Continue bronchodilators Continue IV Solu-Medrol Continue IV Lasix 40 mg and drop the dose to every 24 hours Continue empiric antibiotics and the patient is currently on a combination of cefepime Check MARISA, rheumatoid factor, ANCA levels including P and C ANCA Obtain fungal identification antibodies Obtain a histoplasma urine antigen Legionella urine antigen Start the patient itraconazole 200 mg p.o. twice a day Start the patient on Levaquin 750 mg p.o. daily Blood cultures are negative Check procalcitonin level is at 0.18 proBNP level is elevated Repeat chest x-ray in the morning Repeat blood work in the morning May need to transfer to the ICU if there is any further decompensation in respiratory status. Evaluation was done and 33 minutes. Time with Patient: Greater than 30
[2024-08-07 20:14] LABS: Glucose,Whole Blood 336 mg/dL (70-110)
[2024-08-07] MEDS: INSULIN GLARGINE (LANTUS) 100 UNIT/ML SYR SQ SCH (20:56)
[2024-08-08 06:19] LABS: Glucose,Whole Blood 409 mg/dL (70-110)
--- NOTE | 2024-08-08 06:51 | XR ---
EXAMINATION TYPE: XR chest 1V DATE OF EXAM: 08/08/2024 4:14 AM COMPARISON: Multiple radiographs, with the most recent on 08/07/2024. TECHNIQUE: XR chest 1V Portable AP radiograph of the chest. CLINICAL INDICATION:Male, 64 years old with history of Hypoxic respiratory failure; FINDINGS: Lungs/Pleura: Redemonstration of bilateral multifocal airspace opacities with increased opacities wit hin the right midlung. No sizable pleural effusion or pneumothorax. Pulmonary vascularity: Unremarkable. Heart/mediastinum: Cardiomediastinal silhouette is enlarged and stable. Atherosclerotic calcificatio ns are seen in the aorta. Musculoskeletal: No acute osseous pathology. IMPRESSION: Redemonstration of diffuse multifocal airspace opacities increased opacities within the right midlung . Etiologies include pulmonary edema versus pneumonia. [facility], , 08/08/2024 6:49 AM
[2024-08-08 07:41] LABS: ABG Base Excess -1.1 mmol/L; ABG HCO3 24 mmol/L (21-25); ABG Oxygen Saturation 95.9 % (94-97); ABG PCO2 42 mmHg (35-45); ABG PH 7.37 (7.35-7.45); ABG PO2 80 mmHg (83-108); ABG TCO2 26 mmol/L (19-24); Allen Test Performed? Yes
[2024-08-08 09:01] LABS: Basophils % (A) 0 %; Eosinophils % (A) 0 %; HCT 29.6 % (39.0-53.0); HGB 9.2 gm/dL (13.0-17.5); Lymphocytes # (A) 0.4 k/uL (1.0-4.8); Lymphocytes % (A) 2 %; MCH 29.7 pg (25.0-35.0); MCHC 31.2 g/dL (31.0-37.0); MCV 95.2 fL (80.0-100.0); Mean Platelet Volume 9.4; Monocytes # (A) 0.4 k/uL (0-1.0); Monocytes % (A) 2 %; Neutrophils # (A) 17.4 k/uL (1.3-7.7); Neutrophils % (A) 95 %; Platelet Count 232 k/uL (150-450); RBC 3.11 m/uL (4.30-5.90); RDW 13.1 % (11.5-15.5); WBC 18.2 k/uL (3.8-10.6)
[2024-08-08 09:17] LABS: ALT 43 U/L (4-49); AST 26 U/L (17-59); African American GFR (CKD) 48 (>60 ml/min/1.73 sqM); Albumin 2.7 g/dL (3.5-5.0); Alkaline Phosphatase 105 U/L (38-126); Anion Gap 8 mmol/L; Blood Urea Nitrogen 54 mg/dL (9-20); Calcium 8.1 mg/dL (8.4-10.2); Carbon Dioxide 25 mmol/L (22-30); Chloride 100 mmol/L (98-107); Glucose 300 mg/dL (74-99); Non-African American GFR(CKD) 42 (>60 ml/min/1.73 sqM); Potassium 3.6 mmol/L (3.5-5.1); Sodium 133 mmol/L (137-145); Total Bilirubin 0.4 mg/dL (0.2-1.3); Total Protein 5.4 g/dL (6.3-8.2)
[2024-08-08] MEDS ORDERED: SODIUM CHLORIDE 0.65% NASAL SPRAY 44 ML BTL NASAL PRN (10:58)
--- NOTE | 2024-08-08 11:23 | P.PN ---
Subjective Progress Note Date: 08/08/24 Reason for Consult (text): PE History of present illness: This is a 64-year-old male patient of Dr. Toledo with past medical history of chronic kidney disease stage III, COPD tobacco use, alcohol abuse, hypertension, diabetes mellitus type 2, persistent atrial fibrillation, systolic heart failure, recent GI bleed, family history of premature coronary artery disease. We have been asked to evaluate the patient for PE. Patient was recently hospitalized 07/20 - 07/31 and was seen by cardiology at that time for NSTEMI secondary to sepsis, influenza and pneumonia. Patient states that he was discharged home but he has had problems with getting his medications and has not been taking his medications after he was discharged. He states he could not af jones it because he no longer has Medicaid. Patient did go home on oxygen at 2 L nasal cannula. Patient states that he was having weakness at home could not do anything and he had significant dyspnea with even a small amount of activity. Patient is seen today in the emergency center on BiPAP. He is waiting for a bed on the cardiac stepdown unit. Pulmonary medicine is also on consult. Blood pr essure 156/72, heart rate 59, pulse ox 99% on BiPAP. Patient has been started on heparin drip, IV Solu-Medrol, IV antibiotics. -EKG: Sinus rhythm with left bundle branch block, left axis deviation. -Chest x-ray: Multifocal airspace opacities concerning for pneumonia. #2 persistent cardiomegaly with bilateral multifocal acute infiltrates and/or edema. Findings are worse in the bilateral lower lungs from 1 day earlier. -CTA chest: Acute segmental and subsegmental pulmonary emboli within the right middle and right lower lobes. No saddle embolus. No RV strain. Chronic interstitial lung disease with nonspecific features. -Laboratory studies: WBC 17.2, hemoglobin 10.3, D-dimer 4.87. Sodium 136, potassium 28 and creatinine 1.37, troponin 0.0490, 0.055 and 0.051. proBNP 8810. Influenza A detected. Procalcitonin 0.18.. -Home cardiac medications: Amiodarone 200 mg daily, Norvasc 5 mg daily, Eliquis 5 mg twice daily, atorvastatin 40 mg at bedtime, Lasix 40 mg daily, lisinopril 20 mg twice daily, metoprolol succinate 25 mg daily, spironolactone 25 mg daily. -ABHIJIT and cardioversion performed on 01/03/2023 revealed aortic valve is tricuspid, functioning normally with trace AI. Mitral valve appears to be normal with mild regurgitation. Tricuspid valve appears to be normal with moderate to severe tricuspid regurgitation. There is a PFO. Left atrial appendage is free of clot. EF 35%. -ABHJIIT and cardioversion performed 04/16/2022. -Dobutamine stress echocardiogram performed in the office on 12/27/2020 revealed nondiagnostic EKG portion secondary to baseline EKG abnormalities. Normal stress echo portion without inducible ischemia. Normal left ventricular ejection fraction of 60%. -Echocardiogram performed 07/20/2024: EF 45 to 50%, moderately increased septal wall thickness, moderate biatrial dilatation, moderate tricuspid regurgitation. 08/06 Patient is seen and examined on the cardiac stepdown unit. Blood pressure 143/70, heart rate 78, pulse ox 99% on BiPAP. Repeat blood work reveals BUN 35, creatinine 1.51, potassium 3.4. 08/07 Patient seen and examined. Patient has developed more hypoxia overnight requiring BiPAP and high flow nasal cannula was attempted yesterday. He has had no tachycardia no hypotension. Heart rate is in the 70s, blood pressure 145/67. Repeat blood work reveals WBC 20.8, hemoglobin 9.2, BUN 44 creatinine 1.54, potassium 3.4. Repeat chest x-ray reveals persistent cardiomegaly with bilateral multifocal acute infiltrates and/or edema. 08/08 Patient seen and examined. Patient is still desatting when he is off the BiPAP and its only removed for eating. He states that he feels much better today. Wheezing is improved. Blood pressure 132/59, heart rate 74, pulse ox 92% on BiPAP. Repeat blood work reveals hemoglobin 9.2, WBC 18, sodium 133, BUN 54 creatinine 1.69. Patient is noted to have worsening renal function. Lasix has been changed to once daily by pulmonary medicine. Physical examination: Gen: This is a 64-year-old male appears to be comfortable on BiPAP. VS: reviewed HEENT: Head is atraumatic, normocephalic. Pupils equal, round. Sclerae is anicteric. NECK: Supple. No JVD. LUNGS: Scattered rhonchi bilaterally. No intercostal retractions. HEART: Regular rate and rhythm. No murmur. ABDOMEN: Soft No tenderness. EXTREMITIES: No pedal edema. No calf tenderness. NEUROLOGICAL: Patient is awake, alert and oriented x3. Assessment: Acute pulmonary emboli due to prolonged hospitalization and unable to afford Eliquis No RV strain on CT Acute hypoxic respiratory failure requiring BiPAP secondary to influenza, pne umonia, and component of heart failure NSTEMI secondary to PE, influenza and pneumonia Influenza A Pneumonia Acute on chronic systolic heart failure Acute kidney injury Cardiomyopathy with previous EF of 15 to 20%, possibly tachycardia induced Hypertension Hyperlipidemia Persistent atrial fibrillation status post previous cardioversion x 2, currently in sinus rhythm Diabetes mellitus type 2 Plan: No evidence of RV strain on CT. Patient has no hypotension or shock symptoms. Patient does not require any local or systemic thrombolytics at this time. Continue patient's home cardiac medications Continue Eliquis VTE protocol, prescription has been sent to the pharmacy and is covered by insurance Continue IV Lasix 40 mg reduced to once daily Monitor CHOCO, daily weights, electrolytes and renal function No need to repeat echocardiogram Further recommendations to follow based upon clinical course Nurse practitioner note has been reviewed, I agree with documented findings and plan of care. Patient was seen and examined. Objective - Vital Signs Vital signs: Vital Signs Temp 98.2 F 08/08/24 04:00 Pulse 80 08/08/24 08:04 Resp 27 H 08/08/24 04:00 BP 132/59 08/08/24 04:00 Pulse Ox 93 L 08/08/24 07:59 FiO2 60 08/08/24 07:59 Intake & Output 08/07/24 08/08/24 08/08/24 18:59 06:59 18:59 Intake Total 118 Output Total 600 700 Balance -482 -700 Weight 113.5 kg Intake: Oral 118 Output: Urine 600 700 Other: Voiding Method Bedside Commode Bedside Commode External Catheter External Catheter - Labs CBC & Chem 7: 08/08/24 08:08 08/08/24 08:08 Labs: Abnormal Lab Results - Last 24 Hours (Table) 08/07/24 08/07/24 08/07/24 Range/Units 11:18 16:42 20:12 WBC (3.8-10.6) k/uL RBC (4.30-5.90) m/uL Hgb (13.0-17.5) gm/dL Hct (39.0-53.0) % Neutrophils # (1.3-7.7) k/uL Lymphocytes # (1.0-4.8) k/uL ABG pO2 (83-108) mmHg ABG Total CO2 (19-24) mmol/L Hemoglobin (13.0-17.5) gm/dL Sodium (137-145) mmol/L BUN (9-20) mg/dL Creatinine (0.66-1.25) mg/dL Glucose (74-99) mg/dL POC Glucose (mg/dL) 375 H 299 H 336 H (70-110) mg/dL Calcium (8.4-10.2) mg/dL Total Protein (6.3-8.2) g/dL Albumin (3.5-5.0) g/dL 08/08/24 08/08/24 08/08/24 Range/Units 06:17 07:37 08:08 WBC 18.2 H (3.8-10.6) k/uL RBC 3.11 L (4.30-5.90) m/uL Hgb 9.2 L (13.0-17.5) gm/dL Hct 29.6 L (39.0-53.0) % Neutrophils # 17.4 H (1.3-7.7) k/uL Lymphocytes # 0.4 L (1.0-4.8) k/uL ABG pO2 80 L (83-108) mmHg ABG Total CO2 26 H (19-24) mmol/L Hemoglobin 9.2 L (13.0-17.5) gm/dL Sodium (137-145) mmol/L BUN (9-20) mg/dL Creatinine (0.66-1.25) mg/dL Glucose (74-99) mg/dL POC Glucose (mg/dL) 409 H (70-110) mg/dL Calcium (8.4-10.2) mg/dL Total Protein (6.3-8.2) g/dL Albumin (3.5-5.0) g/dL 08/08/24 Range/Units 08:08 WBC (3.8-10.6) k/uL RBC (4.30-5.90) m/uL Hgb (13.0-17.5) gm/dL Hct (39.0-53.0) % Neutrophils # (1.3-7.7) k/uL Lymphocytes # (1.0-4.8) k/uL ABG pO2 (83-108) mmHg ABG Total CO2 (19-24) mmol/L Hemoglobin (13.0-17.5) gm/dL Sodium 133 L (137-145) mmol/L BUN 54 H (9-20) mg/dL Creatinine 1.69 H (0.66-1.25) mg/dL Glucose 300 H (74-99) mg/dL POC Glucose (mg/dL) (70-110) mg/dL Calcium 8.1 L (8.4-10.2) mg/dL Total Protein 5.4 L (6.3-8.2) g/dL Albumin 2.7 L (3.5-5.0) g/dL Microbiology - Last 24 Hours (Table) 08/04/24 20:48 Blood Culture - Preliminary Blood
[2024-08-08 12:25] LABS: Glucose,Whole Blood 343 mg/dL (70-110)
--- NOTE | 2024-08-08 13:35 | P.PN ---
Subjective Progress Note Date: 08/08/24 Patient is a 64-year-old male with past medical history significant for atrial fibrillation, diabetes mellitus, CKD stage III, hypertension, hyperlipidemia, tobacco smoker. Of note, recently had a prolonged hospitalization 07/19/2024 through 07/31/2024. Treated for combination of influenza A, pneumonia, CHF. Completed course of antibiotics and Tamiflu. At this time, did require noninvasive BiPAP, eventually discharged on home O2. Returns with a chief complaint of shortness of breath progressing over the last 2 to 3 days. Also, reports sudden onset substernal chest pain that developed the night prior and has been persistent. On arrival to the ED, found to be in some respiratory distress, and placed on BiPAP. Workup in the emergency department including a chest x-ray showing multifocal infiltrates concerning for pneumonia or pulmonary edema. D-dimer was elevated in setting CT angio protocol which was positive for segmental and subsegmental right middle lobe and right lower lobe pulmonary emboli. No saddle pulmonary embolus. Pulmonary artery mildly enlarged. Preserved RV to LV ratio. There were diffuse coarse reticular infiltrates, as well as, groundglass lung attenuation, cystic changes, with concerns for interstitial lung disease. Patient does take Eliquis for his history of atrial fibrillation. Does state he has missed some doses lately. CBC: WBC count 22.6, hemoglobin 11, platelets 322. CMP: Sodium 133, potassium 4.2, chloride 101, serum bicarb 24, BUN 30, creatinine 1.27, glucose 135. Lactic 1.5. VBG with a pH of 7.5 and pCO2 of 32. EKG: Sinus rhythm, rate 65 bpm, left bundle branch block, not acute. Elevated serial troponins 0.049 and 0.055 respectively. NT proBNP elevated 8807. Patient is currently being evaluated in the emergency department. He is alert and some moderate respiratory distress. On BiPAP with settings 12/5 and FiO2 60%. Tachypneic, breathing around 40 breaths/min. Endorses progressive worsening difficulty in breathing over last couple days. He has tried to increase his supplemental oxygen at home without any relief. Denies previous history of DVT or PE. Associated nonproductive cough. Denies sputum production or hemoptysis. Substernal nonradiating chest pain persist. Denies any fevers or chills. Denies heart palpitations or syncopal events. Denies swelling in the lower extremities. Heart rhythm is normal sinus on bedside monitor. Blood pressure has been normotensive, did receive 2 L of crystalloid fluid bolus earlier. Not requiring any vasopressors. Normal saline is infusing at 150 mL/h. IV heparin infusing per protocol 08/06/2024, the patient is being seen for a follow-up. The patient is alternating between BiPAP at a pressure of 12/5 with an FiO2 of 60% and 15 L of oxygen by nasal cannula. He is getting slightly anxious and the patient is being provided Xanax accordingly. Fluid balance is -1.1 L over the past 24 hours. Limited echocardiogram was also done and it showed preserved LV function with an EF of around 55 to 60%. Valvular functions could not be accurately assessed as the patient's study was technically difficult study. There was however RV dilatation. Unable to estimate RV pressures. The electrolytes from today showed a creatinine of 1.5 with a BUN of 35. Bicarb is at 21. Sodium is at 132. The patient remains on DuoNeb updrafts. The patient remains on a combination of cefepime and vancomycin. The patient was taken off the IV heparin and the patient was started on anticoagulation with Eliquis. Remains on IV Solu-Medrol 60 mg every 6 hours. Remains on Aldactone. Remains on IV Lasix 40 mg every 12 hours. On today's evaluation of 08/07/2024, the patient is overall condition is essentially unchanged. Continues to be hypoxic, continues to be on BiPAP and the patient remains at a pressure of 12/5 with an FiO2 of 60%. Continues to h ave crackles in lung base bilaterally. White cell count remains elevated at 20 with a hemoglobin 9.2. Very much BiPAP dependent as the patient desaturates once taken off the BiPAP. BUN is 44 with a platelet of 1.5. Sodium levels at 134 and a potassium level is at 3.4. Remains on DuoNeb updrafts. Remains on IV Lasix 40 mg every 12 hours. Remains on Aldactone. Remains on bronchodilators. Remains on steroids. Empiric antibiotic coverage with IV cefepime. Reviewed the CAT scan again and there is some chronic interstitial changes and the patient has diffuse infiltrates with areas of groundglass. Consider acute interstitial pneumonias. Consider fungal pneumonias. On today's evaluation of 08/08/2024, the patient is feeling slightly better compared to yesterday. The patient is off the BiPAP and the patient is currently on 15 L of oxygen by nasal cannula. Remains on bronchodilators. Remains on IV Solu-Medrol. Remains on IV Lasix. Antibiotic coverage including combination of cefepime, Levaquin orally and itraconazole orally. Fungal antibodies are still pending. Meanwhile, rheumatologic profile showed a negative rheumatoid factor and negative MARISA. Legionella urine antigen is still pending for now. Clinically however, the patient is feeling slightly improved compared to yesterday. His chest x-ray continues to show multifocal airspace disease more so in the right lung. Fluid balance has been negative. The patient's creatinine is currently at 1.6 with a BUN of 54 and a sodium levels at 133. I am going to taper the steroids. The white cell count is 18.2 with a h emoglobin of 9.2. Objective - Vital Signs Vital signs: Vital Signs Temp 98.2 F 08/08/24 04:00 Pulse 80 08/08/24 08:04 Resp 27 H 08/08/24 04:00 BP 132/59 08/08/24 04:00 Pulse Ox 93 L 08/08/24 07:59 FiO2 60 08/08/24 07:59 Intake & Output 08/07/24 08/08/24 08/08/24 18:59 06:59 18:59 Intake Total 118 Output Total 600 700 Balance -482 -700 Weight 113.5 kg Intake: Oral 118 Output: Urine 600 700 Other: Voiding Method Bedside Commode Bedside Commode External Catheter External Catheter - Exam GENERAL EXAM: Alert, 64-year-old male, on 15 L of oxygen by nasal cannula more awake and breathing is less labored compared to yesterday HEAD: Normocephalic and atraumatic EYES: Normal reaction of pupils, equal size. NOSE: Clear with pink turbinates. THROAT: No erythema or exudates. NECK: No masses, no JVD. CHEST: No chest wall deformity. LUNGS: Equal air entry with crackles heard on inspiration bilaterally. Conversational dyspnea. CVS: S1 and S2 normal with soft systolic murmur, regular rhythm. No other extra heart sounds ABDOMEN: No hepatosplenomegaly, active bowel sounds, no guarding or rigidity. SPINE: No scoliosis or deformity SKIN: No rashes CENTRAL NERVOUS SYSTEM: No focal deficits, tone is normal in all 4 extremities. EXTREMITIES: There is no peripheral edema, clubbing, or cyanosis. Peripheral pulses are intact. - Labs CBC & Chem 7: 08/08/24 08:08 08/08/24 08:08 Labs: Abnormal Lab Results - Last 24 Hours (Table) 08/07/24 08/07/24 08/07/24 Range/Units 11:18 16:42 20:12 WBC (3.8-10.6) k/uL RBC (4.30-5.90) m/uL Hgb (13.0-17.5) gm/dL Hct (39.0-53.0) % Neutrophils # (1.3-7.7) k/uL Lymphocytes # (1.0-4.8) k/uL ABG pO2 (83-108) mmHg ABG Total CO2 (19-24) mmol/L Hemoglobin (13.0-17.5) gm/dL Sodium (137-145) mmol/L BUN (9-20) mg/dL Creatinine (0.66-1.25) mg/dL Glucose (74-99) mg/dL POC Glucose (mg/dL) 375 H 299 H 336 H (70-110) mg/dL Calcium (8.4-10.2) mg/dL Total Protein (6.3-8.2) g/dL Albumin (3.5-5.0) g/dL 08/08/24 08/08/24 08/08/24 Range/Units 06:17 07:37 08:08 WBC 18.2 H (3.8-10.6) k/uL RBC 3.11 L (4.30-5.90) m/uL Hgb 9.2 L (13.0-17.5) gm/dL Hct 29.6 L (39.0-53.0) % Neutrophils # 17.4 H (1.3-7.7) k/uL Lymphocytes # 0.4 L (1.0-4.8) k/uL ABG pO2 80 L (83-108) mmHg ABG Total CO2 26 H (19-24) mmol/L Hemoglobin 9.2 L (13.0-17.5) gm/dL Sodium (137-145) mmol/L BUN (9-20) mg/dL Creatinine (0.66-1.25) mg/dL Glucose (74-99) mg/dL POC Glucose (mg/dL) 409 H (70-110) mg/dL Calcium (8.4-10.2) mg/dL Total Protein (6.3-8.2) g/dL Albumin (3.5-5.0) g/dL 08/08/24 Range/Units 08:08 WBC (3.8-10.6) k/uL RBC (4.30-5.90) m/uL Hgb (13.0-17.5) gm/dL Hct (39.0-53.0) % Neutrophils # (1.3-7.7) k/uL Lymphocytes # (1.0-4.8) k/uL ABG pO2 (83-108) mmHg ABG Total CO2 (19-24) mmol/L Hemoglobin (13.0-17.5) gm/dL Sodium 133 L (137-145) mmol/L BUN 54 H (9-20) mg/dL Creatinine 1.69 H (0.66-1.25) mg/dL Glucose 300 H (74-99) mg/dL POC Glucose (mg/dL) (70-110) mg/dL Calcium 8.1 L (8.4-10.2) mg/dL Total Protein 5.4 L (6.3-8.2) g/dL Albumin 2.7 L (3.5-5.0) g/dL Microbiology - Last 24 Hours (Table) 08/04/24 20:48 Blood Culture - Preliminary Blood Assessment and Plan Assessment: Acute on chronic hypoxic respiratory failure. Multifactorial. Reviewed the CAT scan of the chest. The patient is changes with coarse infiltrates and cystic changes which could potentially suggest an underlying ILD. Nevertheless, the patient has developed bilateral pulmonary infiltrates could could be CHF/pneumonia/acute lung injury. The contrast administration was put on the CTA and I doubt the possibility of a pulmonary embolism. The patient is maintained on anticoagulation with Eliquis on an outpatient basis. He is currently on IV heparin. He is currently on diuretics. Is currently on a combination of cefepime and vancomycin. He is also on bronchodilators and steroids. He remains on amiodarone. Possibility of acute interstitial pneumonia is/acute lung injury/ARDS need to be considered. Fungal infections are also considered. Acute hypoxemic respiratory failure, currently requiring BiPAP support, secondary to a combination of above, chest x-ray showing multifocal infiltrates concerning for pneumonia or pulmonary edema. Follow-up chest CT showing diffuse coarse reticular infiltrates, as well as, groundglass lung attenuation upper lobe predominant cystic changes, with concerns for interstitial lung disease. The patient is feeling slightly improved compared to yesterday. He is still hypoxic and he was taken off the BiPAP and placed back on 15 L of oxygen nasal cannula Acute exacerbation of chronic systolic congestive heart failure, recent echocardiogram from 07/20/2024 estimating a left ventricular ejection fraction of 45 to 50%, moderate pulmonary hypertension, and moderate tricuspid regurg itation. Repeat echocardiogram showed improvement in LV function with ejection fraction 55% Acute leukocytosis Recent hospitalization with influenza A infection, completed course of Tamiflu CKD stage IIIa History of atrial fibrillation with previous cardioversion, currently normal sinus, normally maintained on Eliquis and amiodarone Chronic tobacco dependence with suspected underlying COPD Hypertension. Hyperlipidemia. Diabetes mellitus, type II. Plan: Continue BiPAP support as needed. Currently on 15 L of O2 nasal cannula. Anticoagulation with Eliquis Continue bronchodilators Continue IV Solu-Medrol Continue IV Lasix 40 mg and drop the dose to every 24 hours Continue empiric antibiotics and the patient is currently on a combination of cefepime Check MARISA, rheumatoid factor are negative, ANCA levels including P and C ANCA are still pending Obtain fungal identification antibodies pending Histoplasma urine antigen Legionella urine antigen Continue itraconazole 200 mg p.o. twice a day Continue Levaquin 750 mg p.o. daily Blood cultures are negative Check procalcitonin level is at 0.18 proBNP level is elevated Repeat chest x-ray from today is unchanged Repeat blood work in the morning Evaluation was done and 33 minutes. Time with Patient: Greater than 30
--- NOTE | 2024-08-08 16:41 | P.PN ---
Subjective Progress Note Date: 08/08/24 Principal diagnosis: Reason for follow-up is pneumonia Patient is a 64-year-old male with a past medical history significant for diabetes mellitus hypertension hyperlipidemia pneumonia atrial fibrillation currently everyday smoker presenting to the hospital for evaluation of increasing shortness of breath patient has been diagnosed with multifocal pneumonia prompting this consultation. On today's evaluation that is 08/08/2024, patient did not have any fever and den ies any chills, patient still complaining of shortness of breath and remains to be on a BiPAP at times requiring high flow nasal cannula oxygen no chest pain no worsening cough no abdominal pain or diarrhea. Patient white count is down to 18.2, creatinine is 1.69 blood cultures are negative so far sputum not collected Objective - Vital Signs Vital signs: Vital Signs Temp 97.0 F L 08/08/24 08:00 Pulse 81 08/08/24 15:47 Resp 20 08/08/24 14:00 BP 160/73 08/08/24 12:00 Pulse Ox 97 08/08/24 12:00 FiO2 60 08/08/24 08:00 Intake & Output 08/07/24 08/08/24 08/08/24 18:59 06:59 18:59 Intake Total 118 118 Output Total 600 700 500 Balance -552 -531 -509 Weight 113.5 kg Intake: Oral 118 118 Output: Urine 600 700 500 Other: Voiding Method Bedside Commode Bedside Commode Bedside Commode External Catheter External Catheter External Catheter - Exam GENERAL DESCRIPTION: An elderly male lying in bed in no distress RESPIRATORY SYSTEM: Unlabored breathing , coarse breath sounds bilaterally HEART: S1 S2 regular rate and rhythm , ABDOMEN: Soft , no tenderness EXTREMITIES: No edema feet - Labs CBC & Chem 7: 08/08/24 08:08 08/08/24 08:08 Labs: Abnormal Lab Results - Last 24 Hours (Table) 08/07/24 08/07/24 08/08/24 Range/Units 16:42 20:12 06:17 WBC (3.8-10.6) k/uL RBC (4.30-5.90) m/uL Hgb (13.0-17.5) gm/dL Hct (39.0-53.0) % Neutrophils # (1.3-7.7) k/uL Lymphocytes # (1.0-4.8) k/uL ABG pO2 (83-108) mmHg ABG Total CO2 (19-24) mmol/L Hemoglobin (13.0-17.5) gm/dL Sodium (137-145) mmol/L BUN (9-20) mg/dL Creatinine (0.66-1.25) mg/dL Glucose (74-99) mg/dL POC Glucose (mg/dL) 299 H 336 H 409 H (70-110) mg/dL Calcium (8.4-10.2) mg/dL Total Protein (6.3-8.2) g/dL Albumin (3.5-5.0) g/dL 08/08/24 08/08/24 08/08/24 Range/Units 07:37 08:08 08:08 WBC 18.2 H (3.8-10.6) k/uL RBC 3.11 L (4.30-5.90) m/uL Hgb 9.2 L (13.0-17.5) gm/dL Hct 29.6 L (39.0-53.0) % Neutrophils # 17.4 H (1.3-7.7) k/uL Lymphocytes # 0.4 L (1.0-4.8) k/uL ABG pO2 80 L (83-108) mmHg ABG Total CO2 26 H (19-24) mmol/L Hemoglobin 9.2 L (13.0-17.5) gm/dL Sodium 133 L (137-145) mmol/L BUN 54 H (9-20) mg/dL Creatinine 1.69 H (0.66-1.25) mg/dL Glucose 300 H (74-99) mg/dL POC Glucose (mg/dL) (70-110) mg/dL Calcium 8.1 L (8.4-10.2) mg/dL Total Protein 5.4 L (6.3-8.2) g/dL Albumin 2.7 L (3.5-5.0) g/dL 08/08/24 Range/Units 12:11 WBC (3.8-10.6) k/uL RBC (4.30-5.90) m/uL Hgb (13.0-17.5) gm/dL Hct (39.0-53.0) % Neutrophils # (1.3-7.7) k/uL Lymphocytes # (1.0-4.8) k/uL ABG pO2 (83-108) mmHg ABG Total CO2 (19-24) mmol/L Hemoglobin (13.0-17.5) gm/dL Sodium (137-145) mmol/L BUN (9-20) mg/dL Creatinine (0.66-1.25) mg/dL Glucose (74-99) mg/dL POC Glucose (mg/dL) 343 H (70-110) mg/dL Calcium (8.4-10.2) mg/dL Total Protein (6.3-8.2) g/dL Albumin (3.5-5.0) g/dL Microbiology - Last 24 Hours (Table) 08/04/24 20:48 Blood Culture - Preliminary Blood Assessment and Plan (1) Leukocytosis Current Visit: Yes Status: Acute Code(s): D72.829 - ELEVATED WHITE BLOOD CELL COUNT, UNSPECIFIED SNOMED Code(s): 519329672 (2) Bilateral pneumonia Current Visit: Yes Status: Acute Code(s): J18.9 - PNEUMONIA, UNSPECIFIED ORGANISM SNOMED Code(s): 786134851 Plan: 1patient presented hospital with increasing shortness of breath and chest pain which is likely multifactorial in this patient who did have evidence of PE on the CT there is also evidence of multifocal pneumonia with elevated white count and recently acute influenza A will need to cover for resistant gram-positive as well as gram-negative pathogen for post influenza pneumonia 2-sputum has not been collected blood culture so far negative 3-patient to continue with broad-spectrum antibiotic cefepime and and itraconazole while waiting for the workup to be completed Dictation was produced using [employer] dictation software. please excuse any grammatical, word or spelling errors. Time with Patient: Less than 30
[2024-08-08 16:44] LABS: Glucose,Whole Blood 424 mg/dL (70-110)
[2024-08-08] MEDS ORDERED: DEXTROSE 50% SYRINGE 50 ML IVP PRN ×2 (17:27)
--- NOTE | 2024-08-08 18:20 | P.PN ---
Progress Note - Text Progress Note Date: 08/08/24 Patient is a 64-year-old male with a PMH of atrial fibrillation on Eliquis, COPD on 2 L home oxygen, [id number]-bdgqopkjy diabetes mellitus, hyperlipidemia, hypertension presenting with shortness of breath. Patient was previously admitted here for acute hypoxic respiratory failure secondary to influenza pneumonia and was discharged on 2 L of home oxygen. Patient states he has been feeling short of breath while at rest. He reports that since being discharged the home oxygen has not been sufficient. He states that he had to keep increasing his oxygen. Patient says shortness of breath is slightly relieved when he is laying down. Denies any orthopnea or PND. Patient endorses a nonpr oductive cough that is chronic in nature, but says it has been getting worse. Patient admits to having fever, chills. Patient also admits to having non- radiating, pressure-like chest pain over the last few days. Chest pain is not related to exertion and he had no alleviating or aggravating factors. Patient denies any headache, vision changes, nausea, vomiting, diarrhea, abdominal pain, urinary symptoms. EKG independently interpreted displaying sinus rhythm with left bundle branch block that has been seen on prior EKG, rate 65 bpm, QTc 451 ms CXR independently interpreted displaying bilateral multifocal airspace opacities Chest CTA displaying acute segmental and subsegmental pulmonary emboli within the right and middle lower lobes, no saddle embolus, no RV strain, chronic interstitial loading disease Venous Doppler B/L LE displaying no evidence of acute DVT Troponin 0.049, 0.055, proBNP 8810, D-dimer 4.87, WBC 22.6, Hgb 11.0, HCT 35.2, MCV 93.7, platelet 322, PT 11.8, INR 1.1, APTT 28, sodium 133, potassium 4.2, CO2 24, BUN 30, creatinine 1.27, glucose 135 VBG pH 7.52, pCO2 32 T98.2 F, AR 80, RR 26, BP 163/77, O2 sat 90% on BiPAP with FiO2 of 100% August 05: Overflow the ER. Up in the bed. Short of breath. Patient was on BiPAP overnight. This morning on 15 L high flow nasal cannula. Decreased appetite. Has got a cough. Some wheezing. Some sputum production. Decreased appetite. Patient is on IV heparin. Also on IV cefepime. Pulmonary following August 06: Patient did confirm that because Eliquis is very expensive patient was not taking it properly did and take it sparingly at home. Explains patient's PE. Started on Eliquis today by cardiology. IV heparin discontinued. Getting easily short of breath. Requiring BiPAP.. Some cough. Oral intake fair. On IV cefepime and vancomycin. ID following. Also on IV Lasix. Due to worsening renal function will DC vancomycin August 07: Saw this afternoon. On BiPAP. 60%. Ensure ordered. All blood work ordered by pulmonary including fungal. Patient currently on IV cefepime and Levaquin. IV Solu-Medrol. Remain short of breath. Tired. Being followed by pulmonary and ID. Chest x-ray film personally reviewed by me-showing pulm edema bilateral infiltrates especially at the bases. Renal ultrasound nonspecific. UA showing protein 1+. August 08: Remain short of breath. Sitting up in bed. Not able to come off the BiPAP. Remains on IV cefepime. Accu-Cheks running high. Put on insulin drip. On IV Solu-Medrol. Oral intake fair. Active Medications Albuterol/Ipratropium (Ipratropium-Albuterol 3 Ml Neb) 3 ml INHALATION RT-QID PRN PRN Reason: Shortness Of Breath Or Wheezing Albuterol/Ipratropium (Ipratropium-Albuterol 3 Ml Neb) 3 ml INHALATION RT-Q4H [facility] Last Admin: 08/08/24 15:35 Dose: 3 ml Alprazolam (Alprazolam 0.5 Mg Tab) 0.5 mg PO TID PRN PRN Reason: Anxiety Last Admin: 08/08/24 13:20 Dose: 0.5 mg Amlodipine Besylate (Amlodipine 5 Mg Tab) 5 mg PO DAILY [facility] Last Admin: 08/08/24 09:13 Dose: 5 mg Apixaban (Apixaban Initiation Dose--Vte 5 Mg Tab) 10 mg PO BID [facility]; Taper Stop: 09/05/24 10:14 Last Admin: 08/08/24 09:13 Dose: 10 mg Aspirin (Aspirin 81 Mg) 81 mg PO DAILY [facility] Last Admin: 08/08/24 09:14 Dose: 81 mg Budesonide (Budesonide 1 Mg/2 Ml Nebu) 1 mg INHALATION RT-BID [facility] Last Admin: 08/08/24 07:38 Dose: 1 mg Dextrose/Water (Dextrose 50% Syringe 50 Ml) 25 ml IVP PER PROTOCOL PRN; Protocol PRN Reason: Hypoglycemia Dextrose/Water (Dextrose 50% Syringe 50 Ml) 50 ml IVP PER PROTOCOL PRN; Protocol PRN Reason: Hypoglycemia Formoterol Fumarate (Formoterol Fumarate 20 Mcg/2 Ml Nebu) 20 mcg INHALATION RT-BID [facility] Last Admin: 08/08/24 07:58 Dose: 20 mcg Furosemide (Furosemide 10 Mg/Ml 4 Ml Vial) 40 mg IV Q24HR [facility]VIN Cefepime HCl 2 gm/ Sodium (Chloride) 100 mls @ 25 mls/hr IVPB Q12H [facility]; Protocol Last Admin: 08/08/24 09:14 Dose: 25 mls/hr Insulin Human Regular 100 unit (/ Sodium Chloride) 100 mls @ 0 mls/hr IV .Q0M [facility]; Protocol Itraconazole (Itraconazole 100 Mg Cap) 200 mg PO BID [facility]; Protocol Last Admin: 08/08/24 09:14 Dose: 200 mg Levofloxacin (Levofloxacin 750 Mg Tab) 750 mg PO Q48H [facility]; Protocol Lisinopril (Lisinopril 20 Mg Tab) 20 mg PO BID [facility] Last Admin: 08/08/24 09:13 Dose: 20 mg Lorazepam (Lorazepam 1 Mg Tab) 1 mg PO HS PRN PRN Reason: Anxiety Last Admin: 08/06/24 00:09 Dose: 1 mg Metoprolol Succinate (Metoprolol Succinate (Er) 25 Mg Tab.Er.24h) 25 mg PO DAILY [facility] Last Admin: 08/08/24 09:13 Dose: 25 mg Morphine Sulfate (Morphine Sulfate 4 Mg/Ml Syringe) 4 mg IV Q4HR PRN PRN Reason: Severe Pain (Scale 7 to 10) Naloxone HCl (Naloxone 0.4 Mg/Ml 1 Ml Vial) 0.2 mg IV Q2M PRN PRN Reason: Opioid Reversal Ondansetron HCl (Ondansetron 4 Mg/2 Ml Vial) 4 mg IVP Q8HR PRN PRN Reason: Nausea And Vomiting Last Admin: 08/07/24 14:52 Dose: 4 mg Pantoprazole Sodium (Pantoprazole 40 Mg/10 Ml Vial) 40 mg IV DAILY [facility] Last Admin: 08/08/24 09:13 Dose: 40 mg Potassium Chloride (Potassium Chloride Er 20 Meq Tab.Er) 20 meq PO DAILY [facility] Last Admin: 08/08/24 09:14 Dose: 20 meq Sodium Chloride (Sodium Chloride 0.65% Nasal [place] 44 Ml Btl) 2 spray NASAL QID PRN PRN Reason: Dry Nasal Passages Spironolactone (Spironolactone 25 Mg Tab) 25 mg PO DAILY [facility] Last Admin: 08/08/24 09:13 Dose: 25 mg Social history: Tobacco: Current [id number] smoker Alcohol: Occasional alcohol use Recreational drugs: Marijuana Travel: No recent travel On examination: VITAL SIGNS: 98, 82, 22, 177 x 77, on BiPAP GENERAL APPEARANCE: Sitting up in bed, leaning forward, short of breath HEENT: Normal external appearance of nose and ear. Oral cavity normal EYES: Pupils equal. Conjunctiva normal. NECK: JVD not raised. Mass not palpable. RESPIRATORY: Respiratory effort increased, not able to speak in full sentences. Accessory muscles working. Lungs diminished breath sounds some scattered crackles prolonged expiration. CARDIOVASCULAR: First and second sounds normal. No edema. ABDOMEN: Soft. Liver and spleen not palpable. No tenderness. No mass palpable. PSYCHIATRY: Alert and oriented x3. Mood and affect anxious. INVESTIGATIONS, reviewed in the clinical context: August 08: White count 8.2 hemoglobin 9.2 platelets 232 ABG: pH 7.3 pCO2 42 pO2 80 sodium 133 potassium 3.6 creatinine 1.69. Accu-Cheks high August 07: White count 20.8 hemoglobin 9.2 platelets 265 sodium 134 BUN 44 creatinine 1.54. Chest x-ray: Pulm edema/bilateral infiltrates August 06: Sodium 132 potassium 3.4 BUN 35 creatinine 1.51 August 05: White count 7.2 hemoglobin 10.3 platelets 242 sodium 136 potassium 3.8 BUN 28 creatinine 1.37 Troponin I: 0.049, 0.055, 0.051 Chest x-ray film personally reviewed by me-bilateral infiltrates. Effusion/pulm edema cardiomegaly. Venous Doppler: No DVT Chest CTA: Acute segmental and subsegmental pulm embolism within the right middle and right lower lobes. No RV strain. Chronic interstitial lung disease. Previous labs: Creatinine 1.63 in October 2022 Assessment/Plan: #. Acute pulmonary embolism, non-massive [segmental and subsegmental within the right middle and lower lobes. No RV strain IV heparin, switched over to Eliquis #. Sepsis likely secondary to -viral pneumonia. Secondary bacterial component probable IV cefepime. And Levaquin- ID and pulmonary following #. Acute hypoxic respiratory failure, secondary to above: Slow to respond Remains on BiPAP, 60% #. Acute COPD exacerbation, in a prior smoker: Slow to respond DuoNeb Q4. IV Solu-Medrol 60 mg q8. Nebulized Pulmicort #. Acute on chronic heart failure with reduced ejection fraction (EF 45 to 50%): Slow to respond IV Lasix 40 mg daily. Aldactone. #. Chronic hypoxic respiratory failure from underlying COPD, 2 L home O2 #. Kez-hruslyr-jnvvtgims type 2 diabetes, uncontrolled with hyperglycemia secondary steroids: Worsening Insulin subcu sliding scale. Stop Levemir. Placed on insulin drip today Accu-Cheks ACHS - chronic kidney disease stage III from nephrosclerosis and diabetic nephropathy [creatinine 1.63 in October 2022] Renal ultrasound.: Suboptimal study. No corticomedullary comment. UA protein 1+ #. Essential hypertension Amlodipine. Zestril. #. Hyperlipidemia Lipitor -Full code Not improving Past Medical History Past Medical History: Atrial Fibrillation, Diabetes Mellitus, Hyperlipidemia, Hypertension, Pneumonia, Supraventricular Tachycardia (SVT) Additional Past Medical History / Comment(s): a fib, causes shortness of breath, can feel irregular heartbeat History of Any Multi-Drug Resistant Organisms: None Reported Past Surgical History: Cholecystectomy, Heart Catheterization Additional Past Surgical History / Comment(s): Colonoscopy Past Anesthesia/Blood Transfusion Reactions: No Reported Reaction Past Psychological History: No Psychological Hx Reported Smoking Status: Current every day smoker Past Alcohol Use History: Occasional Past Drug Use History: Marijuana
[2024-08-08] MEDS: INSULIN REGULAR 100 UNIT in SODIUM CHLORIDE 0.9% 100 ML IV SCH (18:22)
[2024-08-08] MEDS ORDERED: INSULIN REGULAR 100 UNIT in SODIUM CHLORIDE 0.9% 100 ML IV SCH (18:45)
[2024-08-08] MEDS: methylPREDNISolone SOD SUCCI 125 MG/2 ML VIAL IV SCH (19:12)
[2024-08-08 19:44] LABS: Glucose,Whole Blood 385 mg/dL (70-110)
[2024-08-08 20:36] LABS: Glucose,Whole Blood 344 mg/dL (70-110)
[2024-08-08 21:38] LABS: Glucose,Whole Blood 207 mg/dL (70-110)
[2024-08-08 22:39] LABS: Glucose,Whole Blood 115 mg/dL (70-110)
[2024-08-08 23:30] LABS: Glucose,Whole Blood 99 mg/dL (70-110)
[2024-08-09 00:46] LABS: Glucose,Whole Blood 139 mg/dL (70-110)
[2024-08-09] MEDS: OXYMETAZOLINE 0.05% NASL SPRAY 1 SPRAY BOTTLE NASAL SCH (00:58)
[2024-08-09 01:31] LABS: Glucose,Whole Blood 152 mg/dL (70-110)
[2024-08-09 02:37] LABS: Glucose,Whole Blood 186 mg/dL (70-110)
[2024-08-09 03:37] LABS: Glucose,Whole Blood 161 mg/dL (70-110)
[2024-08-09 04:34] LABS: Glucose,Whole Blood 126 mg/dL (70-110)
[2024-08-09 05:36] LABS: Glucose,Whole Blood 133 mg/dL (70-110)
[2024-08-09 06:29] LABS: Glucose,Whole Blood 154 mg/dL (70-110)
[2024-08-09 07:39] LABS: Basophils % (A) 0 %; Eosinophils % (A) 0 %; HCT 28.9 % (39.0-53.0); HGB 9.1 gm/dL (13.0-17.5); Lymphocytes # (A) 0.5 k/uL (1.0-4.8); Lymphocytes % (A) 2 %; MCH 29.8 pg (25.0-35.0); MCHC 31.7 g/dL (31.0-37.0); MCV 94.2 fL (80.0-100.0); Mean Platelet Volume 9.5; Monocytes # (A) 0.3 k/uL (0-1.0); Monocytes % (A) 1 %; Neutrophils # (A) 20.3 k/uL (1.3-7.7); Neutrophils % (A) 96 %; Platelet Count 245 k/uL (150-450); RBC 3.07 m/uL (4.30-5.90); RDW 13.1 % (11.5-15.5); WBC 21.1 k/uL (3.8-10.6)
--- NOTE | 2024-08-09 07:40 | XR ---
EXAMINATION TYPE: XR chest 1V DATE OF EXAM: 08/09/2024 4:32 AM COMPARISON: Multiple radiographs, with the most recent on 08/08/2024, CTA chest 08/04/2024 TECHNIQUE: XR chest 1V Portable AP radiograph of the chest. CLINICAL INDICATION:Male, 64 years old with history of Hypoxic respiratory failure; FINDINGS: Patient is rotated with the evaluation. Lungs/Pleura: Redemonstration of bilateral multifocal airspace opacities. No sizable pleural effusion or pneumothorax. Pulmonary vascularity: Unremarkable. Heart/mediastinum: Cardiomediastinal silhouette is enlarged and stable. Atherosclerotic calcificatio ns are seen in the aorta. Musculoskeletal: No acute osseous pathology. IMPRESSION: Redemonstration of diffuse multifocal airspace opacities. Etiologies include pulmonary edema versus p neumonia. This is superimposed on a background of interstitial lung disease. [facility], , 08/09/2024 7:37 AM
[2024-08-09 07:43] LABS: ALT 42 U/L (4-49); AST 24 U/L (17-59); African American GFR (CKD) 47 (>60 ml/min/1.73 sqM); Albumin 2.6 g/dL (3.5-5.0); Alkaline Phosphatase 100 U/L (38-126); Anion Gap 7 mmol/L; Blood Urea Nitrogen 68 mg/dL (9-20); Calcium 8.5 mg/dL (8.4-10.2); Carbon Dioxide 26 mmol/L (22-30); Chloride 101 mmol/L (98-107); Glucose 147 mg/dL (74-99); Non-African American GFR(CKD) 40 (>60 ml/min/1.73 sqM); Potassium 4.2 mmol/L (3.5-5.1); Sodium 134 mmol/L (137-145); Total Bilirubin 0.8 mg/dL (0.2-1.3); Total Protein 5.4 g/dL (6.3-8.2)
[2024-08-09 07:49] LABS: Glucose,Whole Blood 189 mg/dL (70-110)
[2024-08-09 08:38] LABS: Glucose,Whole Blood 183 mg/dL (70-110)
[2024-08-09] MEDS: FUROSEMIDE 10 MG/ML 4 ML VIAL IV SCH (09:17)
[2024-08-09 09:43] LABS: Glucose,Whole Blood 161 mg/dL (70-110)
[2024-08-09] MEDS: SODIUM CHLORIDE 0.45% 1,000 ML IV SCH (10:38)
[2024-08-09 10:47] LABS: Glucose,Whole Blood 132 mg/dL (70-110)
[2024-08-09 11:18] LABS: Magnesium 2.3 mg/dL (1.6-2.3); Phosphorus 4.2 mg/dL (2.5-4.5)
[2024-08-09 11:47] LABS: Glucose,Whole Blood 130 mg/dL (70-110)
--- NOTE | 2024-08-09 11:58 | P.PN ---
Subjective Progress Note Date: 08/09/24 Reason for Consult (text): PE History of present illness: This is a 64-year-old male patient of Dr. Toledo with past medical history of chronic kidney disease stage III, COPD tobacco use, alcohol abuse, hypertension, diabetes mellitus type 2, persistent atrial fibrillation, systolic heart failure, recent GI bleed, family history of premature coronary artery disease. We have been asked to evaluate the patient for PE. Patient was recently hospitalized 07/20 - 07/31 and was seen by cardiology at that time for NSTEMI secondary to sepsis, influenza and pneumonia. Patient states that he was discharged home but he has had problems with getting his medications and has not been taking his medications after he was discharged. He states he could not af jones it because he no longer has Medicaid. Patient did go home on oxygen at 2 L nasal cannula. Patient states that he was having weakness at home could not do anything and he had significant dyspnea with even a small amount of activity. Patient is seen today in the emergency center on BiPAP. He is waiting for a bed on the cardiac stepdown unit. Pulmonary medicine is also on consult. Blood pr essure 156/72, heart rate 59, pulse ox 99% on BiPAP. Patient has been started on heparin drip, IV Solu-Medrol, IV antibiotics. -EKG: Sinus rhythm with left bundle branch block, left axis deviation. -Chest x-ray: Multifocal airspace opacities concerning for pneumonia. #2 persistent cardiomegaly with bilateral multifocal acute infiltrates and/or edema. Findings are worse in the bilateral lower lungs from 1 day earlier. -CTA chest: Acute segmental and subsegmental pulmonary emboli within the right middle and right lower lobes. No saddle embolus. No RV strain. Chronic interstitial lung disease with nonspecific features. -Laboratory studies: WBC 17.2, hemoglobin 10.3, D-dimer 4.87. Sodium 136, potassium 28 and creatinine 1.37, troponin 0.0490, 0.055 and 0.051. proBNP 8810. Influenza A detected. Procalcitonin 0.18.. -Home cardiac medications: Amiodarone 200 mg daily, Norvasc 5 mg daily, Eliquis 5 mg twice daily, atorvastatin 40 mg at bedtime, Lasix 40 mg daily, lisinopril 20 mg twice daily, metoprolol succinate 25 mg daily, spironolactone 25 mg daily. -ABHIJIT and cardioversion performed on 01/03/2023 revealed aortic valve is tricuspid, functioning normally with trace AI. Mitral valve appears to be normal with mild regurgitation. Tricuspid valve appears to be normal with moderate to severe tricuspid regurgitation. There is a PFO. Left atrial appendage is free of clot. EF 35%. -ABHIJIT and cardioversion performed 04/16/2022. -Dobutamine stress echocardiogram performed in the office on 12/27/2020 revealed nondiagnostic EKG portion secondary to baseline EKG abnormalities. Normal stress echo portion without inducible ischemia. Normal left ventricular ejection fraction of 60%. -Echocardiogram performed 07/20/2024: EF 45 to 50%, moderately increased septal wall thickness, moderate biatrial dilatation, moderate tricuspid regurgitation. 08/06 Patient is seen and examined on the cardiac stepdown unit. Blood pressure 143/70, heart rate 78, pulse ox 99% on BiPAP. Repeat blood work reveals BUN 35, creatinine 1.51, potassium 3.4. 08/07 Patient seen and examined. Patient has developed more hypoxia overnight requiring BiPAP and high flow nasal cannula was attempted yesterday. He has had no tachycardia no hypotension. Heart rate is in the 70s, blood pressure 145/67. Repeat blood work reveals WBC 20.8, hemoglobin 9.2, BUN 44 creatinine 1.54, potassium 3.4. Repeat chest x-ray reveals persistent cardiomegaly with bilateral multifocal acute infiltrates and/or edema. 08/08 Patient seen and examined. Patient is still desatting when he is off the BiPAP and its only removed for eating. He states that he feels much better today. Wheezing is improved. Blood pressure 132/59, heart rate 74, pulse ox 92% on BiPAP. Repeat blood work reveals hemoglobin 9.2, WBC 18, sodium 133, BUN 54 creatinine 1.69. Patient is noted to have worsening renal function. Lasix has been changed to once daily by pulmonary medicine. 08/09 Patient seen and examined on the cardiac stepdown unit. Patient is continuing to have difficulty desatting and is currently on BiPAP with FiO2 of 70% increased to 80% this morning, heart rate is in the 70s, blood pressure 131/60, respiratory rate 28. He is afebrile. Repeat blood work reveals WBC 21, hemoglobin 9.1, BUN 68 creatinine 1.73. Physical examination: Gen: This is a 64-year-old male appears to be comfortable on BiPAP. VS: reviewed HEENT: Head is atraumatic, normocephalic. Pupils equal, round. Sclerae is anicteric. NECK: Supple. No JVD. LUNGS: Scattered rhonchi bilaterally. No intercostal retractions. HEART: Regular rate and rhythm. No murmur. ABDOMEN: Soft No tenderness. EXTREMITIES: No pedal edema. No calf tenderness. NEUROLOGICAL: Patient is awake, alert and oriented x3. Assessment: Acute pulmonary emboli due to prolonged hospitalization and unable to afford Eliquis No RV strain on CT Acute hypoxic respiratory failure requiring BiPAP secondary to influenza, pneumonia, and component of heart failure NSTEMI secondary to PE, influenza and pneumonia Influenza A Pneumonia Acute on chronic systolic heart failure Acute kidney injury Cardiomyopathy with previous EF of 15 to 20%, possibly tachycardia induced Hypertension Hyperlipidemia Persistent atrial fibrillation status post previous cardioversion x 2, currently in sinus rhythm Diabetes mellitus type 2 Plan: No evidence of RV strain on CT. Patient has no hypotension or shock symptoms. Patient does not require any local or systemic thrombolytics at this time. Continue current cardiac medications: Amlodipine 5 mg daily, aspirin, lisinopril, Toprol XL, spironolactone Continue Eliquis VTE protocol, prescription has been sent to the pharmacy and is covered by insurance He is currently off IV Lasix Monitor CHOCO, daily weights, electrolytes and renal function No need to repeat echocardiogram Further recommendations to follow based upon clinical course Nurse practitioner note has been reviewed, I agree with documented findings and plan of care. Patient was seen and examined. Objective - Vital Signs Vital signs: Vital Signs Temp 98.6 F 08/09/24 03:43 Pulse 64 08/09/24 08:46 Resp 28 H 08/09/24 03:43 BP 123/63 08/09/24 03:43 Pulse Ox 91 L 08/09/24 03:45 FiO2 80 08/09/24 08:29 Intake & Output 08/08/24 08/09/24 08/09/24 18:59 06:59 18:59 Intake Total 118 298.489 11.744 Output Total 500 600 Balance -382 -301.511 11.744 Weight 113.5 kg Intake: Intake, IV Titration 58.489 11.744 Amount Insulin Regular 100 unit 58.489 11.744 In Sodium Chloride 0.9% 100 ml @ Titrate IV .Q0M [facility] Rx#:[id number] Oral 118 240 Output: Urine 500 600 Other: Voiding Method Bedside Commode Bedside Commode External Catheter External Catheter - Labs CBC & Chem 7: 08/09/24 06:55 08/09/24 06:55 Labs: Abnormal Lab Results - Last 24 Hours (Table) 08/08/24 08/08/24 08/08/24 Range/Units 08:08 12:11 16:42 WBC (3.8-10.6) k/uL RBC (4.30-5.90) m/uL Hgb (13.0-17.5) gm/dL Hct (39.0-53.0) % Neutrophils # (1.3-7.7) k/uL Lymphocytes # (1.0-4.8) k/uL Sodium (137-145) mmol/L BUN (9-20) mg/dL Creatinine (0.66-1.25) mg/dL Glucose (74-99) mg/dL POC Glucose (mg/dL) 343 H 424 H (70-110) mg/dL Hemoglobin A1c 7.5 H (<=6.0) % Total Protein (6.3-8.2) g/dL Albumin (3.5-5.0) g/dL 08/08/24 08/08/24 08/08/24 Range/Units 19:41 20:35 21:35 WBC (3.8-10.6) k/uL RBC (4.30-5.90) m/uL Hgb (13.0-17.5) gm/dL Hct (39.0-53.0) % Neutrophils # (1.3-7.7) k/uL Lymphocytes # (1.0-4.8) k/uL Sodium (137-145) mmol/L BUN (9-20) mg/dL Creatinine (0.66-1.25) mg/dL Glucose (74-99) mg/dL POC Glucose (mg/dL) 385 H 344 H 207 H (70-110) mg/dL Hemoglobin A1c (<=6.0) % Total Protein (6.3-8.2) g/dL Albumin (3.5-5.0) g/dL 08/08/24 08/09/24 08/09/24 Range/Units 22:37 00:35 01:30 WBC (3.8-10.6) k/uL RBC (4.30-5.90) m/uL Hgb (13.0-17.5) gm/dL Hct (39.0-53.0) % Neutrophils # (1.3-7.7) k/uL Lymphocytes # (1.0-4.8) k/uL Sodium (137-145) mmol/L BUN (9-20) mg/dL Creatinine (0.66-1.25) mg/dL Glucose (74-99) mg/dL POC Glucose (mg/dL) 115 H 139 H 152 H (70-110) mg/dL Hemoglobin A1c (<=6.0) % Total Protein (6.3-8.2) g/dL Albumin (3.5-5.0) g/dL 08/09/24 08/09/24 08/09/24 Range/Units 02:34 03:35 04:32 WBC (3.8-10.6) k/uL RBC (4.30-5.90) m/uL Hgb (13.0-17.5) gm/dL Hct (39.0-53.0) % Neutrophils # (1.3-7.7) k/uL Lymphocytes # (1.0-4.8) k/uL Sodium (137-145) mmol/L BUN (9-20) mg/dL Creatinine (0.66-1.25) mg/dL Glucose (74-99) mg/dL POC Glucose (mg/dL) 186 H 161 H 126 H (70-110) mg/dL Hemoglobin A1c (<=6.0) % Total Protein (6.3-8.2) g/dL Albumin (3.5-5.0) g/dL 08/09/24 08/09/24 08/09/24 Range/Units 05:35 06:27 06:55 WBC 21.1 H (3.8-10.6) k/uL RBC 3.07 L (4.30-5.90) m/uL Hgb 9.1 L (13.0-17.5) gm/dL Hct 28.9 L (39.0-53.0) % Neutrophils # 20.3 H (1.3-7.7) k/uL Lymphocytes # 0.5 L (1.0-4.8) k/uL Sodium (137-145) mmol/L BUN (9-20) mg/dL Creatinine (0.66-1.25) mg/dL Glucose (74-99) mg/dL POC Glucose (mg/dL) 133 H 154 H (70-110) mg/dL Hemoglobin A1c (<=6.0) % Total Protein (6.3-8.2) g/dL Albumin (3.5-5.0) g/dL 08/09/24 08/09/24 08/09/24 Range/Units 06:55 07:46 08:36 WBC (3.8-10.6) k/uL RBC (4.30-5.90) m/uL Hgb (13.0-17.5) gm/dL Hct (39.0-53.0) % Neutrophils # (1.3-7.7) k/uL Lymphocytes # (1.0-4.8) k/uL Sodium 134 L (137-145) mmol/L BUN 68 H (9-20) mg/dL Creatinine 1.73 H (0.66-1.25) mg/dL Glucose 147 H (74-99) mg/dL POC Glucose (mg/dL) 189 H 183 H (70-110) mg/dL Hemoglobin A1c (<=6.0) % Total Protein 5.4 L (6.3-8.2) g/dL Albumin 2.6 L (3.5-5.0) g/dL 08/09/24 Range/Units 09:41 WBC (3.8-10.6) k/uL RBC (4.30-5.90) m/uL Hgb (13.0-17.5) gm/dL Hct (39.0-53.0) % Neutrophils # (1.3-7.7) k/uL Lymphocytes # (1.0-4.8) k/uL Sodium (137-145) mmol/L BUN (9-20) mg/dL Creatinine (0.66-1.25) mg/dL Glucose (74-99) mg/dL POC Glucose (mg/dL) 161 H (70-110) mg/dL Hemoglobin A1c (<=6.0) % Total Protein (6.3-8.2) g/dL Albumin (3.5-5.0) g/dL
[2024-08-09 12:21] LABS: Glucose,Whole Blood 134 mg/dL (70-110)
--- NOTE | 2024-08-09 12:34 | P.PN ---
Subjective Progress Note Date: 08/09/24 Patient is a 64-year-old male with past medical history significant for atrial fibrillation, diabetes mellitus, CKD stage III, hypertension, hyperlipidemia, tobacco smoker. Of note, recently had a prolonged hospitalization 07/19/2024 through 07/31/2024. Treated for combination of influenza A, pneumonia, CHF. Completed course of antibiotics and Tamiflu. At this time, did require noninvasive BiPAP, eventually discharged on home O2. Returns with a chief complaint of shortness of breath progressing over the last 2 to 3 days. Also, reports sudden onset substernal chest pain that developed the night prior and has been persistent. On arrival to the ED, found to be in some respiratory distress, and placed on BiPAP. Workup in the emergency department including a chest x-ray showing multifocal infiltrates concerning for pneumonia or pulmonary edema. D-dimer was elevated in setting CT angio protocol which was positive for segmental and subsegmental right middle lobe and right lower lobe pulmonary emboli. No saddle pulmonary embolus. Pulmonary artery mildly enlarged. Preserved RV to LV ratio. There were diffuse coarse reticular infiltrates, as well as, groundglass lung attenuation, cystic changes, with concerns for interstitial lung disease. Patient does take Eliquis for his history of atrial fibrillation. Does state he has missed some doses lately. CBC: WBC count 22.6, hemoglobin 11, platelets 322. CMP: Sodium 133, potassium 4.2, chloride 101, serum bicarb 24, BUN 30, creatinine 1.27, glucose 135. Lactic 1.5. VBG with a pH of 7.5 and pCO2 of 32. EKG: Sinus rhythm, rate 65 bpm, left bundle branch block, not acute. Elevated serial troponins 0.049 and 0.055 respectively. NT proBNP elevated 8807. Patient is currently being evaluated in the emergency department. He is alert and some moderate respiratory distress. On BiPAP with settings 12/5 and FiO2 60%. Tachypneic, breathing around 40 breaths/min. Endorses progressive worsening difficulty in breathing over last couple days. He has tried to increase his supplemental oxygen at home without any relief. Denies previous history of DVT or PE. Associated nonproductive cough. Denies sputum production or hemoptysis. Substernal nonradiating chest pain persist. Denies any fevers or chills. Denies heart palpitations or syncopal events. Denies swelling in the lower extremities. Heart rhythm is normal sinus on bedside monitor. Blood pressure has been normotensive, did receive 2 L of crystalloid fluid bolus earlier. Not requiring any vasopressors. Normal saline is infusing at 150 mL/h. IV heparin infusing per protocol 08/06/2024, the patient is being seen for a follow-up. The patient is alternating between BiPAP at a pressure of 12/5 with an FiO2 of 60% and 15 L of oxygen by nasal cannula. He is getting slightly anxious and the patient is being provided Xanax accordingly. Fluid balance is -1.1 L over the past 24 hours. Limited echocardiogram was also done and it showed preserved LV function with an EF of around 55 to 60%. Valvular functions could not be accurately assessed as the patient's study was technically difficult study. There was however RV dilatation. Unable to estimate RV pressures. The electrolytes from today showed a creatinine of 1.5 with a BUN of 35. Bicarb is at 21. Sodium is at 132. The patient remains on DuoNeb updrafts. The patient remains on a combination of cefepime and vancomycin. The patient was taken off the IV heparin and the patient was started on anticoagulation with Eliquis. Remains on IV Solu-Medrol 60 mg every 6 hours. Remains on Aldactone. Remains on IV Lasix 40 mg every 12 hours. On today's evaluation of 08/07/2024, the patient is overall condition is essentially unchanged. Continues to be hypoxic, continues to be on BiPAP and the patient remains at a pressure of 12/5 with an FiO2 of 60%. Continues to h ave crackles in lung base bilaterally. White cell count remains elevated at 20 with a hemoglobin 9.2. Very much BiPAP dependent as the patient desaturates once taken off the BiPAP. BUN is 44 with a platelet of 1.5. Sodium levels at 134 and a potassium level is at 3.4. Remains on DuoNeb updrafts. Remains on IV Lasix 40 mg every 12 hours. Remains on Aldactone. Remains on bronchodilators. Remains on steroids. Empiric antibiotic coverage with IV cefepime. Reviewed the CAT scan again and there is some chronic interstitial changes and the patient has diffuse infiltrates with areas of groundglass. Consider acute interstitial pneumonias. Consider fungal pneumonias. On today's evaluation of 08/08/2024, the patient is feeling slightly better compared to yesterday. The patient is off the BiPAP and the patient is currently on 15 L of oxygen by nasal cannula. Remains on bronchodilators. Remains on IV Solu-Medrol. Remains on IV Lasix. Antibiotic coverage including combination of cefepime, Levaquin orally and itraconazole orally. Fungal antibodies are still pending. Meanwhile, rheumatologic profile showed a negative rheumatoid factor and negative MARISA. Legionella urine antigen is still pending for now. Clinically however, the patient is feeling slightly improved compared to yesterday. His chest x-ray continues to show multifocal airspace disease more so in the right lung. Fluid balance has been negative. The patient's creatinine is currently at 1.6 with a BUN of 54 and a sodium levels at 133. I am going to taper the steroids. The white cell count is 18.2 with a h emoglobin of 9.2. On 08/09/2024, the patient is transferred to the intensive care unit for closer monitoring. As mentioned, the patient developed acute hypoxic respiratory failure with diffuse bilateral pulmonary filtrates discussed earlier. The patient was able to tolerate Airvo, however, overnight, the patient developed epistaxis. Therefore was discontinued the patient was placed back on BiPAP and his current BiPAP is running at a pressure of 12 over 5 cm of water with an FiO2 of 80%. The patient seems to be quite dependent on the BiPAP. Unable to drop the FiO2 any further. Repeat chest x-ray was done and shows stable diffuse bilateral pulm infiltrates which remains essentially unchanged compared to yesterday. Clinically, the patient is awake and alert. He is reported to have some congested cough. No significant sputum production. No chest pain. No hemoptysis. Noted, over the past 48 hours, the patient was diuresed with IV Lasix. Nevertheless, we have not seen any improvement in the patient's oxygenation. The patient was negative fluid balance. His BNP today is at 68 with a creatinine of 1.7. Based on that, I stopped diuretics. Rest of the electrolytes are all within normal limits. White cell count of 21 with a hemoglobin 9.1 and a platelet count of 245. The patient remains on broad- spectrum antibiotics. The patient remains on IV cefepime, itraconazole and Levaquin. Fungal antibodies are still pending for now. MARISA and rheumatoid factor were both negative. Legionella urine antigen was also negative. The patient remains on anticoagulation and I am going to drop the Eliquis dose to 5 mg p.o. twice a day. I am not absolutely convinced that the patient has a pulmonary embolism. I reviewed the CAT scan of the chest and there could be potentially some subsegmental filling defects in the right, however, the overall contrast administration was essentially poor. The patient will be monitored very closely in the intensive care unit. On a separate note, the patient was started on insulin drip for blood sugar control. Objective - Vital Signs Vital signs: Vital Signs Temp 98.6 F 08/09/24 03:43 Pulse 64 08/09/24 08:46 Resp 28 H 08/09/24 03:43 BP 123/63 08/09/24 03:43 Pulse Ox 91 L 08/09/24 03:45 FiO2 80 08/09/24 08:29 Intake & Output 08/08/24 08/09/24 08/09/24 18:59 06:59 18:59 Intake Total 118 298.489 11.744 Output Total 500 600 Balance -382 -301.511 11.744 Weight 113.5 kg Intake: Intake, IV Titration 58.489 11.744 Amount Insulin Regular 100 unit 58.489 11.744 In Sodium Chloride 0.9% 100 ml @ Titrate IV .Q0M [facility] Rx#:[id number] Oral 118 240 Output: Urine 500 600 Other: Voiding Method Bedside Commode Bedside Commode External Catheter External Catheter - Exam GENERAL EXAM: Alert, 64-year-old male, on BiPAP at a pressure of 12/5 cm of water with an FiO2 of 80% HEAD: Normocephalic and atraumatic EYES: Normal reaction of pupils, equal size. NOSE: Clear with pink turbinates. The right nostril is packed THROAT: No erythema or exudates. NECK: No masses, no JVD. CHEST: No chest wall deformity. LUNGS: Equal air entry with crackles heard on inspiration bilaterally. Conversational dyspnea. CVS: S1 and S2 normal with soft systolic murmur, regular rhythm. No other extra heart sounds ABDOMEN: No hepatosplenomegaly, active bowel sounds, no guarding or rigidity. SPINE: No scoliosis or deformity SKIN: No rashes CENTRAL NERVOUS SYSTEM: No focal deficits, tone is normal in all 4 extremities. EXTREMITIES: There is no peripheral edema, clubbing, or cyanosis. Peripheral pulses are intact. - Labs CBC & Chem 7: 08/09/24 06:55 08/09/24 06:55 Labs: Abnormal Lab Results - Last 24 Hours (Table) 08/08/24 08/08/24 08/08/24 Range/Units 08:08 12:11 16:42 WBC (3.8-10.6) k/uL RBC (4.30-5.90) m/uL Hgb (13.0-17.5) gm/dL Hct (39.0-53.0) % Neutrophils # (1.3-7.7) k/uL Lymphocytes # (1.0-4.8) k/uL Sodium (137-145) mmol/L BUN (9-20) mg/dL Creatinine (0.66-1.25) mg/dL Glucose (74-99) mg/dL POC Glucose (mg/dL) 343 H 424 H (70-110) mg/dL Hemoglobin A1c 7.5 H (<=6.0) % Total Protein (6.3-8.2) g/dL Albumin (3.5-5.0) g/dL 08/08/24 08/08/24 08/08/24 Range/Units 19:41 20:35 21:35 WBC (3.8-10.6) k/uL RBC (4.30-5.90) m/uL Hgb (13.0-17.5) gm/dL Hct (39.0-53.0) % Neutrophils # (1.3-7.7) k/uL Lymphocytes # (1.0-4.8) k/uL Sodium (137-145) mmol/L BUN (9-20) mg/dL Creatinine (0.66-1.25) mg/dL Glucose (74-99) mg/dL POC Glucose (mg/dL) 385 H 344 H 207 H (70-110) mg/dL Hemoglobin A1c (<=6.0) % Total Protein (6.3-8.2) g/dL Albumin (3.5-5.0) g/dL 08/08/24 08/09/24 08/09/24 Range/Units 22:37 00:35 01:30 WBC (3.8-10.6) k/uL RBC (4.30-5.90) m/uL Hgb (13.0-17.5) gm/dL Hct (39.0-53.0) % Neutrophils # (1.3-7.7) k/uL Lymphocytes # (1.0-4.8) k/uL Sodium (137-145) mmol/L BUN (9-20) mg/dL Creatinine (0.66-1.25) mg/dL Glucose (74-99) mg/dL POC Glucose (mg/dL) 115 H 139 H 152 H (70-110) mg/dL Hemoglobin A1c (<=6.0) % Total Protein (6.3-8.2) g/dL Albumin (3.5-5.0) g/dL 08/09/24 08/09/24 08/09/24 Range/Units 02:34 03:35 04:32 WBC (3.8-10.6) k/uL RBC (4.30-5.90) m/uL Hgb (13.0-17.5) gm/dL Hct (39.0-53.0) % Neutrophils # (1.3-7.7) k/uL Lymphocytes # (1.0-4.8) k/uL Sodium (137-145) mmol/L BUN (9-20) mg/dL Creatinine (0.66-1.25) mg/dL Glucose (74-99) mg/dL POC Glucose (mg/dL) 186 H 161 H 126 H (70-110) mg/dL Hemoglobin A1c (<=6.0) % Total Protein (6.3-8.2) g/dL Albumin (3.5-5.0) g/dL 08/09/24 08/09/24 08/09/24 Range/Units 05:35 06:27 06:55 WBC 21.1 H (3.8-10.6) k/uL RBC 3.07 L (4.30-5.90) m/uL Hgb 9.1 L (13.0-17.5) gm/dL Hct 28.9 L (39.0-53.0) % Neutrophils # 20.3 H (1.3-7.7) k/uL Lymphocytes # 0.5 L (1.0-4.8) k/uL Sodium (137-145) mmol/L BUN (9-20) mg/dL Creatinine (0.66-1.25) mg/dL Glucose (74-99) mg/dL POC Glucose (mg/dL) 133 H 154 H (70-110) mg/dL Hemoglobin A1c (<=6.0) % Total Protein (6.3-8.2) g/dL Albumin (3.5-5.0) g/dL 08/09/24 08/09/24 08/09/24 Range/Units 06:55 07:46 08:36 WBC (3.8-10.6) k/uL RBC (4.30-5.90) m/uL Hgb (13.0-17.5) gm/dL Hct (39.0-53.0) % Neutrophils # (1.3-7.7) k/uL Lymphocytes # (1.0-4.8) k/uL Sodium 134 L (137-145) mmol/L BUN 68 H (9-20) mg/dL Creatinine 1.73 H (0.66-1.25) mg/dL Glucose 147 H (74-99) mg/dL POC Glucose (mg/dL) 189 H 183 H (70-110) mg/dL Hemoglobin A1c (<=6.0) % Total Protein 5.4 L (6.3-8.2) g/dL Albumin 2.6 L (3.5-5.0) g/dL 08/09/24 Range/Units 09:41 WBC (3.8-10.6) k/uL RBC (4.30-5.90) m/uL Hgb (13.0-17.5) gm/dL Hct (39.0-53.0) % Neutrophils # (1.3-7.7) k/uL Lymphocytes # (1.0-4.8) k/uL Sodium (137-145) mmol/L BUN (9-20) mg/dL Creatinine (0.66-1.25) mg/dL Glucose (74-99) mg/dL POC Glucose (mg/dL) 161 H (70-110) mg/dL Hemoglobin A1c (<=6.0) % Total Protein (6.3-8.2) g/dL Albumin (3.5-5.0) g/dL Assessment and Plan Assessment: Acute on chronic hypoxic respiratory failure. Multifactorial. Reviewed the CAT scan of the chest. The patient is changes with coarse infiltrates and cystic changes which could potentially suggest an underlying ILD. Nevertheless, the patient has developed bilateral pulmonary infiltrates could could be CHF/pneumonia/acute lung injury. The contrast administration was put on the CTA and I doubt the possibility of a pulmonary embolism. The patient is maintained on anticoagulation with Eliquis on an outpatient basis. Possibility of acute interstitial pneumonia /acute lung injury/ARDS need to be considered. Fungal infections are also considered. Drug-induced lung toxicity secondary amiodarone is also possible. Bacterial pneumonia is felt to be less likely unless there are some sort of an opportunistic infections. Acute hypoxemic respiratory failure, currently requiring BiPAP support, secondary to a combination of above, chest x-ray showing multifocal infiltrates concerning for pneumonia or pulmonary edema. Follow-up chest CT showing diffuse coarse reticular infiltrates, as well as, groundglass lung attenuation upper lobe predominant cystic changes, with concerns for interstitial lung disease. The patient is feeling slightly improved compared to yesterday. He is still hypoxic and he is on BiPAP pressure of 12/5 cm of water and FiO2 of 80%. Acute exacerbation of chronic systolic congestive heart failure, recent echocardiogram from 07/20/2024 estimating a left ventricular ejection fraction of 45 to 50%, moderate pulmonary hypertension, and moderate tricuspid regurgita tion. Repeat echocardiogram showed improvement in LV function with ejection fraction 55% Acute leukocytosis Recent hospitalization with influenza A infection, completed course of Tamiflu CKD stage IIIa History of atrial fibrillation with previous cardioversion, currently normal sinus, normally maintained on Eliquis and amiodarone Chronic tobacco dependence with suspected underlying COPD Hypertension. Hyperlipidemia. Diabetes mellitus, type II. Epistaxis Plan: Continue BiPAP support at pressures of 12/5 with an FiO2 of 80% Anticoagulation with Eliquis, drop the Eliquis dose to 5 mg p.o. twice a day Continue bronchodilators Continue IV Solu-Medrol Discontinue IV Lasix Continue empiric antibiotics and the patient is currently on a combination of cefepime and Levaquin and itraconazole Check MARISA, rheumatoid factor are negative, ANCA levels including P and C ANCA are still pending Obtain fungal identification antibodies pending Histoplasma urine antigen Legionella urine antigen was done and the results are negative Blood cultures are negative Check procalcitonin level is at 0.18 proBNP level is elevated Repeat chest x-ray from today is unchanged Repeat blood work in the morning The patient will be transferred to the intensive care unit. Insulin drip was started for blood sugar control. Condition obviously is critical and will make further recommendations based on his progress. A bronchoscopy and lavage may be of value should the patient develop further respiratory decompensation requiring intubation mechanical ventilation. For now, he cannot handle the bronchoscopy as his respiratory status is quite borderline. Evaluation was done and 33 minutes. Time with Patient: Greater than 30
--- NOTE | 2024-08-09 12:36 | P.PN ---
Progress Note - Text Progress Note Date: 08/09/24 Patient is a 64-year-old male with a PMH of atrial fibrillation on Eliquis, COPD on 2 L home oxygen, [id number] diabetes mellitus, hyperlipidemia, hypertension presenting with shortness of breath. Patient was previously admitted here for acute hypoxic respiratory failure secondary to influenza pneumonia and was discharged on 2 L of home oxygen. Patient states he has been feeling short of breath while at rest. He reports that since being discharged the home oxygen has not been sufficient. He states that he had to keep increasing his oxygen. Patient says shortness of breath is slightly relieved when he is laying down. Denies any orthopnea or PND. Patient endorses a nonpr oductive cough that is chronic in nature, but says it has been getting worse. Patient admits to having fever, chills. Patient also admits to having non- radiating, pressure-like chest pain over the last few days. Chest pain is not related to exertion and he had no alleviating or aggravating factors. Patient denies any headache, vision changes, nausea, vomiting, diarrhea, abdominal pain, urinary symptoms. EKG independently interpreted displaying sinus rhythm with left bundle branch block that has been seen on prior EKG, rate 65 bpm, QTc 451 ms CXR independently interpreted displaying bilateral multifocal airspace opacities Chest CTA displaying acute segmental and subsegmental pulmonary emboli within the right and middle lower lobes, no saddle embolus, no RV strain, chronic interstitial loading disease Venous Doppler B/L LE displaying no evidence of acute DVT Troponin 0.049, 0.055, proBNP 8810, D-dimer 4.87, WBC 22.6, Hgb 11.0, HCT 35.2, MCV 93.7, platelet 322, PT 11.8, INR 1.1, APTT 28, sodium 133, potassium 4.2, CO2 24, BUN 30, creatinine 1.27, glucose 135 VBG pH 7.52, pCO2 32 T98.2 F, VA 80, RR 26, BP 163/77, O2 sat 90% on BiPAP with FiO2 of 100% August 05: Overflow the ER. Up in the bed. Short of breath. Patient was on BiPAP overnight. This morning on 15 L high flow nasal cannula. Decreased appetite. Has got a cough. Some wheezing. Some sputum production. Decreased appetite. Patient is on IV heparin. Also on IV cefepime. Pulmonary following August 06: Patient did confirm that because Eliquis is very expensive patient was not taking it properly did and take it sparingly at home. Explains patient's PE. Started on Eliquis today by cardiology. IV heparin discontinued. Getting easily short of breath. Requiring BiPAP.. Some cough. Oral intake fair. On IV cefepime and vancomycin. ID following. Also on IV Lasix. Due to worsening renal function will DC vancomycin August 07: Saw this afternoon. On BiPAP. 60%. Ensure ordered. All blood work ordered by pulmonary including fungal. Patient currently on IV cefepime and Levaquin. IV Solu-Medrol. Remain short of breath. Tired. Being followed by pulmonary and ID. Chest x-ray film personally reviewed by me-showing pulm edema bilateral infiltrates especially at the bases. Renal ultrasound nonspecific. UA showing protein 1+. August 08: Remain short of breath. Sitting up in bed. Not able to come off the BiPAP. Remains on IV cefepime. Accu-Cheks running high. Put on insulin drip. On IV Solu-Medrol. Oral intake fair. August 09: Patient remains short of breath. Unable to get off BiPAP. FiO2 increased to 70%. 04/30. Per Dr. Goode: Patient be moved to the ICU. Poor oral intake. Remains on insulin drip. IV Solu-Medrol. Eliquis. IV cefepime and Levaquin. Tired. Sitting up in bed leaning forward short of breath. Chest x-ray film personally reviewed by me: Scattered bilateral infiltrates Active Medications Albuterol/Ipratropium (Ipratropium-Albuterol 3 Ml Neb) 3 ml INHALATION RT-QID PRN PRN Reason: Shortness Of Breath Or Wheezing Albuterol/Ipratropium (Ipratropium-Albuterol 3 Ml Neb) 3 ml INHALATION RT-Q4H [facility] Last Admin: 08/09/24 12:24 Dose: 3 ml Alprazolam (Alprazolam 0.5 Mg Tab) 0.5 mg PO TID PRN PRN Reason: Anxiety Last Admin: 08/08/24 23:04 Dose: 0.5 mg Amlodipine Besylate (Amlodipine 5 Mg Tab) 5 mg PO DAILY [facility] Last Admin: 08/09/24 09:17 Dose: 5 mg Apixaban (Apixaban Initiation Dose--Vte 5 Mg Tab) 10 mg PO BID [facility]; Taper Stop: 09/05/24 10:14 Last Admin: 08/09/24 09:17 Dose: 10 mg Aspirin (Aspirin 81 Mg) 81 mg PO DAILY [facility] Last Admin: 08/09/24 09:17 Dose: 81 mg Budesonide (Budesonide 1 Mg/2 Ml Nebu) 1 mg INHALATION RT-BID [facility] Last Admin: 08/09/24 08:27 Dose: 1 mg Dextrose/Water (Dextrose 50% Syringe 50 Ml) 25 ml IVP PER PROTOCOL PRN; Protocol PRN Reason: Hypoglycemia Dextrose/Water (Dextrose 50% Syringe 50 Ml) 50 ml IVP PER PROTOCOL PRN; Protocol PRN Reason: Hypoglycemia Formoterol Fumarate (Formoterol Fumarate 20 Mcg/2 Ml Nebu) 20 mcg INHALATION RT-BID [facility] Last Admin: 08/09/24 08:41 Dose: 20 mcg Cefepime HCl 2 gm/ Sodium (Chloride) 100 mls @ 25 mls/hr IVPB Q12H [facility]; Pro tocol Last Admin: 08/09/24 10:38 Dose: 25 mls/hr Insulin Human Regular 100 unit (/ Sodium Chloride) 100 mls @ 0 mls/hr IV .Q0M [facility]; Protocol Last Titration: 08/09/24 10:46 Dose: 0 units/hr, 0 mls/hr Sodium Chloride (Saline 0.45%) 1,000 mls @ 50 mls/hr IV .Q20H [facility] Last Admin: 08/09/24 10:38 Dose: 50 mls/hr Itraconazole (Itraconazole 100 Mg Cap) 200 mg PO BID [facility]; Protocol Last Admin: 08/09/24 09:17 Dose: 200 mg Levofloxacin (Levofloxacin 750 Mg Tab) 750 mg PO Q48H [facility]; Protocol Lisinopril (Lisinopril 20 Mg Tab) 20 mg PO BID [facility] Last Admin: 08/09/24 09:16 Dose: 20 mg Lorazepam (Lorazepam 1 Mg Tab) 1 mg PO HS PRN PRN Reason: Anxiety Last Admin: 08/08/24 23:04 Dose: 1 mg Methylprednisolone Sodium Succinate (Methylprednisolone Sod Succi 125 Mg/2 Ml Vial) 60 mg IV Q8H [facility] Last Admin: 08/09/24 10:38 Dose: 60 mg Metoprolol Succinate (Metoprolol Succinate (Er) 25 Mg Tab.Er.24h) 25 mg PO DAILY [facility] Last Admin: 08/09/24 09:17 Dose: 25 mg Morphine Sulfate (Morphine Sulfate 4 Mg/Ml Syringe) 4 mg IV Q4HR PRN PRN Reason: Severe Pain (Scale 7 to 10) Naloxone HCl (Naloxone 0.4 Mg/Ml 1 Ml Vial) 0.2 mg IV Q2M PRN PRN Reason: Opioid Reversal Ondansetron HCl (Ondansetron 4 Mg/2 Ml Vial) 4 mg IVP Q8HR PRN PRN Reason: Nausea And Vomiting Last Admin: 08/07/24 14:52 Dose: 4 mg Oxymetazoline HCl (Oxymetazoline 0.05% Nasl [place] 1 [place] Bottle) 2 spray NASAL BID [facility] Last Admin: 08/09/24 09:18 Dose: 2 spray Pantoprazole Sodium (Pantoprazole 40 Mg/10 Ml Vial) 40 mg IV DAILY [facility] Last Admin: 08/09/24 09:17 Dose: 40 mg Potassium Chloride (Potassium Chloride Er 20 Meq Tab.Er) 20 meq PO DAILY [facility] Last Admin: 08/09/24 09:20 Dose: 20 meq Sodium Chloride (Sodium Chloride 0.65% Nasal [place] 44 Ml Btl) 2 spray NASAL QID PRN PRN Reason: Dry Nasal Passages Spironolactone (Spironolactone 25 Mg Tab) 25 mg PO DAILY [facility] Last Admin: 08/09/24 09:17 Dose: 25 mg Social history: Tobacco: Current [id number] smoker Alcohol: Occasional alcohol use Recreational drugs: Marijuana Travel: No recent travel On examination: VITAL SIGNS: 98.6, 67, 28, 123 x 63, 88% on BiPAP right GENERAL APPEARANCE: Sitting up in bed, leaning forward, short of breath HEENT: Normal external appearance of nose and ear. Oral cavity normal EYES: Pupils equal. Conjunctiva normal. NECK: JVD unable to assess. Mass not palpable. RESPIRATORY: Respiratory effort increased, not able to speak in full sentences. Accessory muscles working. Lungs diminished breath sounds some scattered crackles prolonged expiration. CARDIOVASCULAR: First and second sounds normal. No edema. ABDOMEN: Soft. Liver and spleen not palpable. No tenderness. No mass palpable. PSYCHIATRY: Tired. Mood and affect tired INVESTIGATIONS, reviewed in the clinical context: Mild 16: White count 21.1 hemoglobin 9.1 platelets 245 potassium 4.2 BUN 68 creatinine 1.73 August 08: White count 8.2 hemoglobin 9.2 platelets 232 ABG: pH 7.3 pCO2 42 pO2 80 sodium 133 potassium 3.6 creatinine 1.69. Accu-Cheks high August 07: White count 20.8 hemoglobin 9.2 platelets 265 sodium 134 BUN 44 creatinine 1.54. Chest x-ray: Pulm edema/bilateral infiltrates August 06: Sodium 132 potassium 3.4 BUN 35 creatinine 1.51 August 05: White count 7.2 hemoglobin 10.3 platelets 242 sodium 136 potassium 3.8 BUN 28 creatinine 1.37 Troponin I: 0.049, 0.055, 0.051 Chest x-ray film personally reviewed by me-bilateral infiltrates. Effusion/pulm edema cardiomegaly. Venous Doppler: No DVT Chest CTA: Acute segmental and subsegmental pulm embolism within the right middle and right lower lobes. No RV strain. Chronic interstitial lung disease. Previous labs: Creatinine 1.63 in October 2022 Assessment/Plan: #. Acute pulmonary embolism, non-massive [segmental and subsegmental within the right middle and lower lobes. No RV strain IV heparin, switched over to Eliquis #. Sepsis likely secondary to -viral pneumonia. Secondary bacterial component probable IV cefepime. And Levaquin- ID and pulmonary following #. Acute hypoxic respiratory failure, secondary to above: Worsening Remains on BiPAP, 70% Because of worsening pulmonary status being moved to the ICU #. Acute COPD exacerbation, in a prior smoker: Not improving DuoNeb Q4. IV Solu-Medrol 60 mg q8. Nebulized Pulmicort #. Acute on chronic heart failure with reduced ejection fraction (EF 45 to 50%): Slow to respond Received IV Lasix . Aldactone. #. Chronic hypoxic respiratory failure from underlying COPD, 2 L home O2 #. Iyw-zeqvdng-nzwhkrtet type 2 diabetes, uncontrolled with hyperglycemia secondary steroids: Worsening Insulin subcu sliding scale. Stop Levemir. Currently on insulin drip y Accu-Cheks ACHS - chronic kidney disease stage III from nephrosclerosis and diabetic nephropathy [creatinine 1.63 in October 2022] Renal ultrasound.: Suboptimal study. No corticomedullary comment. UA protein 1+ #. Essential hypertension Amlodipine. Zestril. #. Hyperlipidemia Lipitor -Full code Patient has worsening pulmonary status. Being moved to the ICU. Past Medical History Past Medical History: Atrial Fibrillation, Diabetes Mellitus, Hyperlipidemia, Hypertension, Pneumonia, Supraventricular Tachycardia (SVT) Additional Past Medical History / Comment(s): a fib, causes shortness of breath, can feel irregular heartbeat History of Any Multi-Drug Resistant Organisms: None Reported Past Surgical History: Cholecystectomy, Heart Catheterization Additional Past Surgical History / Comment(s): Colonoscopy Past Anesthesia/Blood Transfusion Reactions: No Reported Reaction Past Psychological History: No Psychological Hx Reported Smoking Status: Current every day smoker Past Alcohol Use History: Occasional Past Drug Use History: Marijuana
[2024-08-09 13:55] LABS: Glucose,Whole Blood 171 mg/dL (70-110)
[2024-08-09 15:31] LABS: Glucose,Whole Blood 249 mg/dL (70-110)
--- NOTE | 2024-08-09 15:38 | P.PN ---
Subjective Progress Note Date: 08/09/24 Principal diagnosis: Reason for follow-up is pneumonia Patient is a 64-year-old male with a past medical history significant for diabetes mellitus hypertension hyperlipidemia pneumonia atrial fibrillation currently everyday smoker presenting to the hospital for evaluation of increasing shortness of breath patient has been diagnosed with multifocal pneumonia prompting this consultation. On today's evaluation that is 08/09/2024, Patient is afebrile patient was moved to the ICU because he was requiring more supplemental oxygen he is currently on high flow nasal cannula oxygen with a 40% FiO2 patient mention breathing slightly comfortably denies any chest pain or worsening cough no abdominal pain or diarrhea. Patient white count 21.1 creatinine is 1.73 urine for Legionella antigen is negative fungal serology pending Objective - Vital Signs Vital signs: Vital Signs Temp 98.2 F 08/09/24 12:30 Pulse 70 08/09/24 15:34 Resp 22 08/09/24 15:00 BP 123/66 08/09/24 15:00 Pulse Ox 96 08/09/24 15:23 FiO2 90 08/09/24 15:23 Intake & Output 08/08/24 08/09/24 08/09/24 18:59 06:59 18:59 Intake Total 118 298.489 118.805 Output Total 500 600 175 Balance -382 -301.511 -56.195 Weight 113.5 kg Intake: IV 100 Cefepime 2 gm In Sodium 100 Chloride 0.9% 100 ml @ 25 mls/hr IVPB Q12H [facility] Rx# :[id number] Intake, IV Titration 58.489 18.805 Amount Insulin Regular 100 unit 58.489 18.805 In Sodium Chloride 0.9% 100 ml @ Titrate IV .Q0M [facility] Rx#:[id number] Oral 118 240 Output: Urine 500 600 175 Other: Voiding Method Bedside Commode Bedside Commode Bedside Commode External Catheter External Catheter External Catheter - Exam GENERAL DESCRIPTION: An elderly male lying in bed in no distress RESPIRATORY SYSTEM: Unlabored breathing , coarse breath sounds bilaterally HEART: S1 S2 regular rate and rhythm , ABDOMEN: Soft , no tenderness EXTREMITIES: No edema feet - Labs CBC & Chem 7: 08/09/24 06:55 08/09/24 06:55 Labs: Abnormal Lab Results - Last 24 Hours (Table) 08/08/24 08/08/24 08/08/24 Range/Units 08:08 16:42 19:41 WBC (3.8-10.6) k/uL RBC (4.30-5.90) m/uL Hgb (13.0-17.5) gm/dL Hct (39.0-53.0) % Neutrophils # (1.3-7.7) k/uL Lymphocytes # (1.0-4.8) k/uL Sodium (137-145) mmol/L BUN (9-20) mg/dL Creatinine (0.66-1.25) mg/dL Glucose (74-99) mg/dL POC Glucose (mg/dL) 424 H 385 H (70-110) mg/dL Hemoglobin A1c 7.5 H (<=6.0) % Total Protein (6.3-8.2) g/dL Albumin (3.5-5.0) g/dL 08/08/24 08/08/24 08/08/24 Range/Units 20:35 21:35 22:37 WBC (3.8-10.6) k/uL RBC (4.30-5.90) m/uL Hgb (13.0-17.5) gm/dL Hct (39.0-53.0) % Neutrophils # (1.3-7.7) k/uL Lymphocytes # (1.0-4.8) k/uL Sodium (137-145) mmol/L BUN (9-20) mg/dL Creatinine (0.66-1.25) mg/dL Glucose (74-99) mg/dL POC Glucose (mg/dL) 344 H 207 H 115 H (70-110) mg/dL Hemoglobin A1c (<=6.0) % Total Protein (6.3-8.2) g/dL Albumin (3.5-5.0) g/dL 08/09/24 08/09/24 08/09/24 Range/Units 00:35 01:30 02:34 WBC (3.8-10.6) k/uL RBC (4.30-5.90) m/uL Hgb (13.0-17.5) gm/dL Hct (39.0-53.0) % Neutrophils # (1.3-7.7) k/uL Lymphocytes # (1.0-4.8) k/uL Sodium (137-145) mmol/L BUN (9-20) mg/dL Creatinine (0.66-1.25) mg/dL Glucose (74-99) mg/dL POC Glucose (mg/dL) 139 H 152 H 186 H (70-110) mg/dL Hemoglobin A1c (<=6.0) % Total Protein (6.3-8.2) g/dL Albumin (3.5-5.0) g/dL 08/09/24 08/09/24 08/09/24 Range/Units 03:35 04:32 05:35 WBC (3.8-10.6) k/uL RBC (4.30-5.90) m/uL Hgb (13.0-17.5) gm/dL Hct (39.0-53.0) % Neutrophils # (1.3-7.7) k/uL Lymphocytes # (1.0-4.8) k/uL Sodium (137-145) mmol/L BUN (9-20) mg/dL Creatinine (0.66-1.25) mg/dL Glucose (74-99) mg/dL POC Glucose (mg/dL) 161 H 126 H 133 H (70-110) mg/dL Hemoglobin A1c (<=6.0) % Total Protein (6.3-8.2) g/dL Albumin (3.5-5.0) g/dL 08/09/24 08/09/24 08/09/24 Range/Units 06:27 06:55 06:55 WBC 21.1 H (3.8-10.6) k/uL RBC 3.07 L (4.30-5.90) m/uL Hgb 9.1 L (13.0-17.5) gm/dL Hct 28.9 L (39.0-53.0) % Neutrophils # 20.3 H (1.3-7.7) k/uL Lymphocytes # 0.5 L (1.0-4.8) k/uL Sodium 134 L (137-145) mmol/L BUN 68 H (9-20) mg/dL Creatinine 1.73 H (0.66-1.25) mg/dL Glucose 147 H (74-99) mg/dL POC Glucose (mg/dL) 154 H (70-110) mg/dL Hemoglobin A1c (<=6.0) % Total Protein 5.4 L (6.3-8.2) g/dL Albumin 2.6 L (3.5-5.0) g/dL 08/09/24 08/09/24 08/09/24 Range/Units 07:46 08:36 09:41 WBC (3.8-10.6) k/uL RBC (4.30-5.90) m/uL Hgb (13.0-17.5) gm/dL Hct (39.0-53.0) % Neutrophils # (1.3-7.7) k/uL Lymphocytes # (1.0-4.8) k/uL Sodium (137-145) mmol/L BUN (9-20) mg/dL Creatinine (0.66-1.25) mg/dL Glucose (74-99) mg/dL POC Glucose (mg/dL) 189 H 183 H 161 H (70-110) mg/dL Hemoglobin A1c (<=6.0) % Total Protein (6.3-8.2) g/dL Albumin (3.5-5.0) g/dL 08/09/24 08/09/24 08/09/24 Range/Units 10:45 11:45 12:19 WBC (3.8-10.6) k/uL RBC (4.30-5.90) m/uL Hgb (13.0-17.5) gm/dL Hct (39.0-53.0) % Neutrophils # (1.3-7.7) k/uL Lymphocytes # (1.0-4.8) k/uL Sodium (137-145) mmol/L BUN (9-20) mg/dL Creatinine (0.66-1.25) mg/dL Glucose (74-99) mg/dL POC Glucose (mg/dL) 132 H 130 H 134 H (70-110) mg/dL Hemoglobin A1c (<=6.0) % Total Protein (6.3-8.2) g/dL Albumin (3.5-5.0) g/dL 08/09/24 08/09/24 Range/Units 13:53 15:29 WBC (3.8-10.6) k/uL RBC (4.30-5.90) m/uL Hgb (13.0-17.5) gm/dL Hct (39.0-53.0) % Neutrophils # (1.3-7.7) k/uL Lymphocytes # (1.0-4.8) k/uL Sodium (137-145) mmol/L BUN (9-20) mg/dL Creatinine (0.66-1.25) mg/dL Glucose (74-99) mg/dL POC Glucose (mg/dL) 171 H 249 H (70-110) mg/dL Hemoglobin A1c (<=6.0) % Total Protein (6.3-8.2) g/dL Albumin (3.5-5.0) g/dL Assessment and Plan (1) Leukocytosis Current Visit: Yes Status: Acute Code(s): D72.829 - ELEVATED WHITE BLOOD CELL COUNT, UNSPECIFIED SNOMED Code(s): 861671512 (2) Bilateral pneumonia Current Visit: Yes Status: Acute Code(s): J18.9 - PNEUMONIA, UNSPECIFIED ORGANISM SNOMED Code(s): 552441470 Plan: 1patient presented hospital with increasing shortness of breath and chest pain which is likely multifactorial in this patient who did have evidence of PE on the CT there is also evidence of multifocal pneumonia with elevated white count and recently acute influenza A will need to cover for resistant gram-positive as well as gram-negative pathogen for post influenza pneumonia 2-patient will bring up sputum and sputum culture to be requested again 3-patient mentions some improvement setting to continue cefepime and itraconazole, monitor clinical course closely Dictation was produced using [employer] dictation software. please excuse any grammatical, word or spelling errors. Time with Patient: Less than 30
[2024-08-09 16:52] LABS: Glucose,Whole Blood 298 mg/dL (70-110)
[2024-08-09] MEDS: LEVOFLOXACIN 750 MG TAB PO SCH (17:35)
[2024-08-09 17:53] LABS: Glucose,Whole Blood 282 mg/dL (70-110)
[2024-08-09 19:43] LABS: Glucose,Whole Blood 308 mg/dL (70-110)
[2024-08-09] MEDS ORDERED: APIXABAN 2.5 MG TABLET PO SCH (21:00)
[2024-08-09 21:11] LABS: Glucose,Whole Blood 269 mg/dL (70-110)
[2024-08-09 21:57] LABS: Glucose,Whole Blood 244 mg/dL (70-110)
[2024-08-09 23:10] LABS: Glucose,Whole Blood 188 mg/dL (70-110)
[2024-08-09 23:59] LABS: Glucose,Whole Blood 155 mg/dL (70-110)
[2024-08-10 02:23] LABS: Glucose,Whole Blood 128 mg/dL (70-110)
[2024-08-10 03:28] LABS: Glucose,Whole Blood 141 mg/dL (70-110)
[2024-08-10 05:22] LABS: Glucose,Whole Blood 234 mg/dL (70-110)
[2024-08-10 06:11] LABS: Glucose,Whole Blood 258 mg/dL (70-110)
[2024-08-10 06:15] LABS: Basophils % (A) 0 %; Eosinophils % (A) 0 %; HGB 7.9 gm/dL (13.0-17.5); Lymphocytes # (A) 0.4 k/uL (1.0-4.8); Lymphocytes % (A) 2 %; MCHC 31.4 g/dL (31.0-37.0); MCV 95.5 fL (80.0-100.0); Monocytes # (A) 0.4 k/uL (0-1.0); Monocytes % (A) 2 %; Neutrophils # (A) 20.7 k/uL (1.3-7.7); Neutrophils % (A) 96 %; Platelet Count 201 k/uL (150-450); RBC 2.62 m/uL (4.30-5.90); RDW 13.1 % (11.5-15.5); WBC 21.7 k/uL (3.8-10.6)
[2024-08-10 06:43] LABS: African American GFR (CKD) 40 (>60 ml/min/1.73 sqM); Anion Gap 4 mmol/L; Blood Urea Nitrogen 95 mg/dL (9-20); Calcium 8.6 mg/dL (8.4-10.2); Carbon Dioxide 26 mmol/L (22-30); Chloride 98 mmol/L (98-107); Glucose 186 mg/dL (74-99); Non-African American GFR(CKD) 35 (>60 ml/min/1.73 sqM); Potassium 4.5 mmol/L (3.5-5.1); Sodium 128 mmol/L (137-145)
[2024-08-10 07:12] LABS: Glucose,Whole Blood 278 mg/dL (70-110)
[2024-08-10 08:03] LABS: Glucose,Whole Blood 245 mg/dL (70-110)
[2024-08-10 09:15] LABS: Glucose,Whole Blood 224 mg/dL (70-110)
--- NOTE | 2024-08-10 09:24 | P.PN ---
Subjective Progress Note Date: 08/10/24 The patient is a 64-year-old male who is currently admitted to the hospital with acute hypoxic respiratory failure secondary to pulmonary embolism, influenza, and pneumonia. Patient was transferred to the ICU yesterday for hypoxia despite BiPAP. Patient interviewed and examined resting in bed. Patient is dyspneic with tripod breathing. He is currently on BiPAP with oxygen saturations maintaining above 90. Patient denies any current discomfort. GENERAL: Well-appearing, well-nourished. Positive for labored breathing NECK: Supple without JVD or thyromegaly. LUNGS: Breath sounds diminished to auscultation bilaterally. Respiration equal. No wheezes, rales or rhonchi. HEART: Regular rate and rhythm without murmurs, rubs or gallops. S1 and S2 heard. EXTREMITIES: Normal range of motion, no edema. No clubbing or cyanosis. Peripheral pulses intact and strong. TELEMETRY: Sinus rhythm overnight LABS: WBC 21.7, hemoglobin 7.9, hematocrit 25.0, sodium 128, potassium 4.5, BUN 95, creatinine 1.97 IMPRESSION: Acute pulmonary emboli due to prolonged hospitalization and unable to afford Eliquis Acute hypoxic respiratory failure requiring BiPAP secondary to influenza, pneumonia, and component of heart failure NSTEMI secondary to PE, influenza and pneumonia Influenza A Pneumonia Acute on chronic systolic heart failure Acute kidney injury, worsening Cardiomyopathy with previous EF of 15 to 20% Hypertension Hyperlipidemia Persistent atrial fibrillation, currently in sinus rhythm Diabetes mellitus type 2 PLAN: Continue supportive treatment Further recommendations to be based upon clinical course I am dictating on behalf of Dr Israel Figueroa's history/physical and assessment/plan. Objective - Vital Signs Vital signs: Vital Signs Temp 97.6 F 08/10/24 04:00 Pulse 69 08/10/24 06:00 Resp 24 08/10/24 06:00 BP 162/66 08/10/24 06:00 Pulse Ox 99 08/10/24 06:00 FiO2 90 08/10/24 04:54 Intake & Output 08/09/24 08/10/24 08/10/24 18:59 06:59 18:59 Intake Total 1677.736 7865.659 5.75 Output Total 400 900 Balance 839.569 667.659 5.75 Intake: IV 300 100 Cefepime 2 gm In Sodium 300 100 Chloride 0.9% 100 ml @ 25 mls/hr IVPB Q12H [facility] Rx# :[id number] Intake, IV Titration 29.569 417.659 5.75 Amount Insulin Regular 100 unit 29.569 67.659 5.75 In Sodium Chloride 0.9% 100 ml @ Titrate IV .Q0M [facility] Rx#:[id number] Sodium Chloride 0.45% 1, 350 000 ml @ 50 mls/hr IV . Q20H [facility] Rx#:[id number] Oral 910 1050 Output: Urine 400 900 Other: Voiding Method Bedside Commode Bedside Commode External Catheter External Catheter - Labs CBC & Chem 7: 08/10/24 05:22 08/10/24 05:22 Labs: Abnormal Lab Results - Last 24 Hours (Table) 08/08/24 08/09/24 08/09/24 Range/Units 08:08 09:41 10:45 WBC (3.8-10.6) k/uL RBC (4.30-5.90) m/uL Hgb (13.0-17.5) gm/dL Hct (39.0-53.0) % Neutrophils # (1.3-7.7) k/uL Lymphocytes # (1.0-4.8) k/uL Sodium (137-145) mmol/L BUN (9-20) mg/dL Creatinine (0.66-1.25) mg/dL Glucose (74-99) mg/dL POC Glucose (mg/dL) 161 H 132 H (70-110) mg/dL Hemoglobin A1c 7.5 H (<=6.0) % 08/09/24 08/09/24 08/09/24 Range/Units 11:45 12:19 13:53 WBC (3.8-10.6) k/uL RBC (4.30-5.90) m/uL Hgb (13.0-17.5) gm/dL Hct (39.0-53.0) % Neutrophils # (1.3-7.7) k/uL Lymphocytes # (1.0-4.8) k/uL Sodium (137-145) mmol/L BUN (9-20) mg/dL Creatinine (0.66-1.25) mg/dL Glucose (74-99) mg/dL POC Glucose (mg/dL) 130 H 134 H 171 H (70-110) mg/dL Hemoglobin A1c (<=6.0) % 08/09/24 08/09/24 08/09/24 Range/Units 15:29 16:50 17:52 WBC (3.8-10.6) k/uL RBC (4.30-5.90) m/uL Hgb (13.0-17.5) gm/dL Hct (39.0-53.0) % Neutrophils # (1.3-7.7) k/uL Lymphocytes # (1.0-4.8) k/uL Sodium (137-145) mmol/L BUN (9-20) mg/dL Creatinine (0.66-1.25) mg/dL Glucose (74-99) mg/dL POC Glucose (mg/dL) 249 H 298 H 282 H (70-110) mg/dL Hemoglobin A1c (<=6.0) % 08/09/24 08/09/24 08/09/24 Range/Units 19:42 21:10 21:56 WBC (3.8-10.6) k/uL RBC (4.30-5.90) m/uL Hgb (13.0-17.5) gm/dL Hct (39.0-53.0) % Neutrophils # (1.3-7.7) k/uL Lymphocytes # (1.0-4.8) k/uL Sodium (137-145) mmol/L BUN (9-20) mg/dL Creatinine (0.66-1.25) mg/dL Glucose (74-99) mg/dL POC Glucose (mg/dL) 308 H 269 H 244 H (70-110) mg/dL Hemoglobin A1c (<=6.0) % 08/09/24 08/09/24 08/10/24 Range/Units 23:09 23:58 02:22 WBC (3.8-10.6) k/uL RBC (4.30-5.90) m/uL Hgb (13.0-17.5) gm/dL Hct (39.0-53.0) % Neutrophils # (1.3-7.7) k/uL Lymphocytes # (1.0-4.8) k/uL Sodium (137-145) mmol/L BUN (9-20) mg/dL Creatinine (0.66-1.25) mg/dL Glucose (74-99) mg/dL POC Glucose (mg/dL) 188 H 155 H 128 H (70-110) mg/dL Hemoglobin A1c (<=6.0) % 08/10/24 08/10/24 08/10/24 Range/Units 03: 05:20 05:22 WBC 21.7 H (3.8-10.6) k/uL RBC 2.62 L (4.30-5.90) m/uL Hgb 7.9 L (13.0-17.5) gm/dL Hct 25.0 L (39.0-53.0) % Neutrophils # 20.7 H (1.3-7.7) k/uL Lymphocytes # 0.4 L (1.0-4.8) k/uL Sodium (137-145) mmol/L BUN (9-20) mg/dL Creatinine (0.66-1.25) mg/dL Glucose (74-99) mg/dL POC Glucose (mg/dL) 141 H 234 H (70-110) mg/dL Hemoglobin A1c (<=6.0) % 08/10/24 08/10/24 08/10/24 Range/Units 05:22 06:10 07:10 WBC (3.8-10.6) k/uL RBC (4.30-5.90) m/uL Hgb (13.0-17.5) gm/dL Hct (39.0-53.0) % Neutrophils # (1.3-7.7) k/uL Lymphocytes # (1.0-4.8) k/uL Sodium 128 L (137-145) mmol/L BUN 95 H (9-20) mg/dL Creatinine 1.97 H (0.66-1.25) mg/dL Glucose 186 H (74-99) mg/dL POC Glucose (mg/dL) 258 H 278 H (70-110) mg/dL Hemoglobin A1c (<=6.0) % 08/10/24 08/10/24 Range/Units 08:02 09:14 WBC (3.8-10.6) k/uL RBC (4.30-5.90) m/uL Hgb (13.0-17.5) gm/dL Hct (39.0-53.0) % Neutrophils # (1.3-7.7) k/uL Lymphocytes # (1.0-4.8) k/uL Sodium (137-145) mmol/L BUN (9-20) mg/dL Creatinine (0.66-1.25) mg/dL Glucose (74-99) mg/dL POC Glucose (mg/dL) 245 H 224 H (70-110) mg/dL Hemoglobin A1c (<=6.0) % Microbiology - Last 24 Hours (Table) 08/04/24 20:48 Blood Culture - Final Blood
[2024-08-10 10:04] LABS: Glucose,Whole Blood 214 mg/dL (70-110)
[2024-08-10] MEDS: FUROSEMIDE 10 MG/ML 4 ML VIAL IV SCH (10:16)
[2024-08-10 11:10] LABS: Glucose,Whole Blood 203 mg/dL (70-110)
[2024-08-10 12:16] LABS: Glucose,Whole Blood 218 mg/dL (70-110)
--- NOTE | 2024-08-10 12:31 | P.PN ---
Subjective Progress Note Date: 08/10/24 Principal diagnosis: Acute on chronic hypoxic respiratory failure, multifactorial Patient is a 64-year-old male with past medical history significant for atrial fibrillation, diabetes mellitus, CKD stage III, hypertension, hyperlipidemia, tobacco smoker. Of note, recently had a prolonged hospitalization 07/19/2024 through 07/31/2024. Treated for combination of influenza A, pneumonia, CHF. Completed course of antibiotics and Tamiflu. At this time, did require noninvasive BiPAP, eventually discharged on home O2. Returns with a chief complaint of shortness of breath progressing over the last 2 to 3 days. Also, reports sudden onset substernal chest pain that developed the night prior and has been persistent. On arrival to the ED, found to be in some respiratory distress, and placed on BiPAP. Workup in the emergency department including a chest x-ray showing multifocal infiltrates concerning for pneumonia or pulmonary edema. D-dimer was elevated in setting CT angio protocol which was positive for segmental and subsegmental right middle lobe and right lower lobe pulmonary emboli. No saddle pulmonary embolus. Pulmonary artery mildly enlarged. Preserved RV to LV ratio. There were diffuse coarse reticular infiltrates, as well as, groundglass lung attenuation, cystic changes, with concerns for interstitial lung disease. Patient does take Eliquis for his history of atrial fibrillation. Does state he has missed some doses lately. CBC: WBC count 22.6, hemoglobin 11, platelets 322. CMP: Sodium 133, potassium 4.2, chloride 101, serum bicarb 24, BUN 30, creatinine 1.27, glucose 135. Lactic 1.5. VBG with a pH of 7.5 and pCO2 of 32. EKG: Sinus rhythm, rate 65 bpm, left bundle branch block, not acute. Elevated serial troponins 0.049 and 0.055 respectively. NT proBNP elevated 8807. Patient is currently being evaluated in the emergency department. He is alert and some moderate respiratory distress. On BiPAP with settings 12/5 and FiO2 60%. Tachypneic, breathing around 40 breaths/min. Endorses progressive worsening difficulty in breathing over last couple days. He has tried to increase his supplemental oxygen at home without any relief. Denies previous history of DVT or PE. Associated nonproductive cough. Denies sputum production or hemoptysis. Substernal nonradiating chest pain persist. Denies any fevers or chills. Denies heart palpitations or syncopal events. Denies swelling in the lower extremities. Heart rhythm is normal sinus on bedside monitor. Blood pressure has been normotensive, did receive 2 L of crystalloid fluid bolus earlier. Not requiring any vasopressors. Normal saline is infusing at 150 mL/h. IV heparin infusing per protocol 08/06/2024, the patient is being seen for a follow-up. The patient is alternating between BiPAP at a pressure of 12/5 with an FiO2 of 60% and 15 L of oxygen by nasal cannula. He is getting slightly anxious and the patient is being provided Xanax accordingly. Fluid balance is -1.1 L over the past 24 hours. Limited echocardiogram was also done and it showed preserved LV function with an EF of around 55 to 60%. Valvular functions could not be accurately assessed as the patient's study was technically difficult study. There was however RV dilatation. Unable to estimate RV pressures. The electrolytes from today showed a creatinine of 1.5 with a BUN of 35. Bicarb is at 21. Sodium is at 132. The patient remains on DuoNeb updrafts. The patient remains on a combination of cefepime and vancomycin. The patient was taken off the IV hep lizzette and the patient was started on anticoagulation with Eliquis. Remains on IV Solu-Medrol 60 mg every 6 hours. Remains on Aldactone. Remains on IV Lasix 40 mg every 12 hours. On today's evaluation of 08/07/2024, the patient is overall condition is essentially unchanged. Continues to be hypoxic, continues to be on BiPAP and the patient remains at a pressure of 12/5 with an FiO2 of 60%. Continues to have crackles in lung base bilaterally. White cell count remains elevated at 20 with a hemoglobin 9.2. Very much BiPAP dependent as the patient desaturates once taken off the BiPAP. BUN is 44 with a platelet of 1.5. Sodium levels at 134 and a potassium level is at 3.4. Remains on DuoNeb updrafts. Remains on IV Lasix 40 mg every 12 hours. Remains on Aldactone. Remains on bronchodilators. Remains on steroids. Empiric antibiotic coverage with IV cefepime. Reviewed the CAT scan again and there is some chronic interstitial changes and the patient has diffuse infiltrates with areas of groundglass. Consider acute interstitial pneumonias. Consider fungal pneumonias. On today's evaluation of 08/08/2024, the patient is feeling slightly better compared to yesterday. The patient is off the BiPAP and the patient is currently on 15 L of oxygen by nasal cannula. Remains on bronchodilators. Remains on IV Solu-Medrol. Remains on IV Lasix. Antibiotic coverage including combination of cefepime, Levaquin orally and itraconazole orally. Fungal antibodies are still pending. Meanwhile, rheumatologic profile showed a negative rheumatoid factor and negative MARISA. Legionella urine antigen is still pending for now. Clinically however, the patient is feeling slightly improved compared to yesterday. His chest x-ray continues to show multifocal airspace disease more so in the right lung. Fluid balance has been negative. The patient's creatinine is currently at 1.6 with a BUN of 54 and a sodium levels at 133. I am going to taper the steroids. The white cell count is 18.2 with a hemoglobin of 9.2. On 08/09/2024, the patient is transferred to the intensive care unit for closer monitoring. As mentioned, the patient developed acute hypoxic respiratory failure with diffuse bilateral pulmonary filtrates discussed earlier. The patient was able to tolerate Airvo, however, overnight, the patient developed epistaxis. Therefore was discontinued the patient was placed back on BiPAP and his current BiPAP is running at a pressure of 12 over 5 cm of water with an FiO2 of 80%. The patient seems to be quite dependent on the BiPAP. Unable to drop the FiO2 any further. Repeat chest x-ray was done and shows stable diffuse bilateral pulm infiltrates which remains essentially unchanged compared to yesterday. Clinically, the patient is awake and alert. He is reported to have some congested cough. No significant sputum production. No chest pain. No hemoptysis. Noted, over the past 48 hours, the patient was diuresed with IV Lasix. Nevertheless, we have not seen any improvement in the patient's oxygenation. The patient was negative fluid balance. His BNP today is at 68 with a creatinine of 1.7. Based on that, I stopped diuretics. Rest of the electrolytes are all within normal limits. White cell count of 21 with a hemoglobin 9.1 and a platelet count of 245. The patient remains on broad- spectrum antibiotics. The patient remains on IV cefepime, itraconazole and Levaquin. Fungal antibodies are still pending for now. MARISA and rheumatoid factor were both negative. Legionella urine antigen was also negative. The patient remains on anticoagulation and I am going to drop the Eliquis dose to 5 mg p.o. twice a day. I am not absolutely convinced that the patient has a pulmonary embolism. I reviewed the CAT scan of the chest and there could be potentially some subsegmental filling defects in the right, however, the overall contrast administration was essentially poor. The patient will be monitored very closely in the intensive care unit. On a separate note, the patient was started on insulin drip for blood sugar control. Patient was seen today on 08/10/2024, remains in the ICU, remains on fluid restrictions for low sodium of 128, he is on BiPAP 04/30/60%, patient is presenting this time very much similar to his last presentation few weeks ago. I am familiar with this patient, and on his last admission patient responded to treatment with mostly diuretics, and steroids. This time came back with a similar presentation, he is receiving diuretics, but has been on hold for the last 24 hours, and I recommended we go back on Lasix 40 mg IV push every 12 hours, patient is receiving Solu-Medrol at 60 mg IV push every 8 hours, he is also on Levaquin's, cefepime, and he is marginal at best. In addition to this the patient had non-ST elevation myocardial infarction and flu/influenza A back on 08/04. Blood cultures have been negative, patient has leukocytosis with WBC count of 21.7 hemoglobin is 7.9. Creatinine has been slightly rising 1.51 on admission which is about his baseline, today his creatinine is 1.97 with a BUN of 95. Legionella antigen has been negative MARISA screen has been negative rheumatoid factor is negative patient continues to complain of shortness of breath, intermittent cough, and wheezing. Objective - Vital Signs Vital signs: Vital Signs Temp 97.8 F 08/10/24 08:00 Pulse 68 08/10/24 10:30 Resp 22 08/10/24 10:30 BP 118/55 08/10/24 10:30 Pulse Ox 93 L 08/10/24 10:30 FiO2 60 08/10/24 12:06 Intake & Output 08/09/24 08/10/24 08/10/24 18:59 06:59 18:59 Intake Total 9489.578 8679.659 327.383 Output Total 400 900 250 Balance 839.569 667.659 77.383 Intake: IV 300 100 100 Cefepime 2 gm In Sodium 300 100 100 Chloride 0.9% 100 ml @ 25 mls/hr IVPB Q12H [facility] Rx# :[id number] Intake, IV Titration 29.569 417.659 227.383 Amount Insulin Regular 100 unit 29.569 67.659 27.383 In Sodium Chloride 0.9% 100 ml @ Titrate IV .Q0M [facility] Rx#:[id number] Sodium Chloride 0.45% 1, 350 200 000 ml @ 50 mls/hr IV . Q20H [facility] Rx#:[id number] Oral 910 1050 Output: Urine 400 900 250 Other: Voiding Method Bedside Commode Bedside Commode External Catheter External Catheter External Catheter - Exam GENERAL EXAM: 64-year-old white male obese in no distress on BiPAP however seems to be anxious. HEAD: Normocephalic and atraumatic EYES: Normal reaction of pupils, equal size. NOSE: Clear with pink turbinates. The right nostril is packed THROAT: No erythema or exudates. NECK: No masses, no JVD. CHEST: No chest wall deformity. LUNGS: Crackles and rhonchi noted bilaterally. CVS: S1 and S2 normal with soft systolic murmur, regular rhythm. No other extra heart sounds ABDOMEN: No hepatosplenomegaly, active bowel sounds, no guarding or rigidity. SKIN: No rashes CENTRAL NERVOUS SYSTEM: Alert oriented x 3 no gross focal deficit EXTREMITIES: 2+ bipedal edema, good pulses bilaterally. - Labs CBC & Chem 7: 08/10/24 05:22 08/10/24 05:22 Labs: Abnormal Lab Results - Last 24 Hours (Table) 08/09/24 08/09/24 08/09/24 Range/Units 13:53 15:29 16:50 WBC (3.8-10.6) k/uL RBC (4.30-5.90) m/uL Hgb (13.0-17.5) gm/dL Hct (39.0-53.0) % Neutrophils # (1.3-7.7) k/uL Lymphocytes # (1.0-4.8) k/uL Sodium (137-145) mmol/L BUN (9-20) mg/dL Creatinine (0.66-1.25) mg/dL Glucose (74-99) mg/dL POC Glucose (mg/dL) 171 H 249 H 298 H (70-110) mg/dL 08/09/24 08/09/24 08/09/24 Range/Units 17:52 19:42 21:10 WBC (3.8-10.6) k/uL RBC (4.30-5.90) m/uL Hgb (13.0-17.5) gm/dL Hct (39.0-53.0) % Neutrophils # (1.3-7.7) k/uL Lymphocytes # (1.0-4.8) k/uL Sodium (137-145) mmol/L BUN (9-20) mg/dL Creatinine (0.66-1.25) mg/dL Glucose (74-99) mg/dL POC Glucose (mg/dL) 282 H 308 H 269 H (70-110) mg/dL 08/09/24 08/09/24 08/09/24 Range/Units 21:56 23:09 23:58 WBC (3.8-10.6) k/uL RBC (4.30-5.90) m/uL Hgb (13.0-17.5) gm/dL Hct (39.0-53.0) % Neutrophils # (1.3-7.7) k/uL Lymphocytes # (1.0-4.8) k/uL Sodium (137-145) mmol/L BUN (9-20) mg/dL Creatinine (0.66-1.25) mg/dL Glucose (74-99) mg/dL POC Glucose (mg/dL) 244 H 188 H 155 H (70-110) mg/dL 08/10/24 08/10/24 08/10/24 Range/Units 02:22 03:26 05:20 WBC (3.8-10.6) k/uL RBC (4.30-5.90) m/uL Hgb (13.0-17.5) gm/dL Hct (39.0-53.0) % Neutrophils # (1.3-7.7) k/uL Lymphocytes # (1.0-4.8) k/uL Sodium (137-145) mmol/L BUN (9-20) mg/dL Creatinine (0.66-1.25) mg/dL Glucose (74-99) mg/dL POC Glucose (mg/dL) 128 H 141 H 234 H (70-110) mg/dL 08/10/24 08/10/24 08/10/24 Range/Units 05:22 05:22 06:10 WBC 21.7 H (3.8-10.6) k/uL RBC 2.62 L (4.30-5.90) m/uL Hgb 7.9 L (13.0-17.5) gm/dL Hct 25.0 L (39.0-53.0) % Neutrophils # 20.7 H (1.3-7.7) k/uL Lymphocytes # 0.4 L (1.0-4.8) k/uL Sodium 128 L (137-145) mmol/L BUN 95 H (9-20) mg/dL Creatinine 1.97 H (0.66-1.25) mg/dL Glucose 186 H (74-99) mg/dL POC Glucose (mg/dL) 258 H (70-110) mg/dL 08/10/24 08/10/24 08/10/24 Range/Units 07:10 08:02 09:14 WBC (3.8-10.6) k/uL RBC (4.30-5.90) m/uL Hgb (13.0-17.5) gm/dL Hct (39.0-53.0) % Neutrophils # (1.3-7.7) k/uL Lymphocytes # (1.0-4.8) k/uL Sodium (137-145) mmol/L BUN (9-20) mg/dL Creatinine (0.66-1.25) mg/dL Glucose (74-99) mg/dL POC Glucose (mg/dL) 278 H 245 H 224 H (70-110) mg/dL 08/10/24 08/10/24 08/10/24 Range/Units 10:03 11:08 12:15 WBC (3.8-10.6) k/uL RBC (4.30-5.90) m/uL Hgb (13.0-17.5) gm/dL Hct (39.0-53.0) % Neutrophils # (1.3-7.7) k/uL Lymphocytes # (1.0-4.8) k/uL Sodium (137-145) mmol/L BUN (9-20) mg/dL Creatinine (0.66-1.25) mg/dL Glucose (74-99) mg/dL POC Glucose (mg/dL) 214 H 203 H 218 H (70-110) mg/dL Microbiology - Last 24 Hours (Table) 08/04/24 20:48 Blood Culture - Final Blood Assessment and Plan Assessment: Impression: Acute on chronic hypoxic respiratory failure, multifactorial, I suspect this is mostly a picture of pulmonary edema, underlying pneumonia is not entirely ruled out. Hence the patient will remain on antibiotics and diuretics. Acute exacerbation of chronic systolic congestive heart failure, recent echocardiogram from 07/20/2024 estimating a left ventricular ejection fraction of 45 to 50%, moderate pulmonary hypertension, and moderate tricuspid regurgitation. Repeat echocardiogram showed improvement in LV function with ejection fraction 55% Acute leukocytosis Acute on chronic kidney disease Recent influenza A infection History of atrial fibrillation with previous cardioversion History of underlying COPD and chronic tobacco dependence Benign essential hypertension Type 2 diabetes Recommendation: Continue BiPAP 12/5/60% Continue bronchodilators Resume diuretics Lasix 40 mg IV push twice daily Continue Solu-Medrol Continue empiric antibiotics and antifungal patient is on cefepime Levaquin and itraconazole Connective tissue disease workup seems to be negative Histoplasma antigen is negative Procalcitonin level is not elevated and never was elevated even on his last admission Continues to have elevated BNP level Patient to remain in the ICU, he is not ready for transfer out of the ICU, remains marginal at best, and still requiring BiPAP, did not tolerate Airvo or high flow nasal cannula Patient remains critically ill Critical care time is 32 minutes Time with Patient: Greater than 30
[2024-08-10 12:53] LABS: Glucose,Whole Blood 224 mg/dL (70-110)
--- NOTE | 2024-08-10 13:38 | P.NPCON ---
History of Present Illness - Reason for Consult acute renal failure - History of Present Illness Patient is a 64-year-old male with history of type 2 diabetes hypertension hyperlipidemia and chronic A-fib. He was recently hospitalized for influenza A and treated with Tamiflu. Patient also had volume overload and was diuresed. Serum creatinine had peaked at 1.9 mg/dL and improved to 1.2 on 07/31/2024 upon discharge. Patient was readmitted to the hospital with complaints of shortness of breath. He has been transferred to the ICU and is maintained on BiPAP. Patient tested again positive for influenza A. Chest x-ray shows diffuse multifocal airspace opacities. Patient has been maintained on Lasix which was held yesterday and restarted today. Serum creatinine was 1.2 on initial admission and has increased to 1.9 today. Blood pressure has been borderline. Patient is maintained on SAGAR inhibitors. Past Medical History Past Medical History: Atrial Fibrillation, Diabetes Mellitus, Hyperlipidemia, Hypertension, Pneumonia, Supraventricular Tachycardia (SVT) Additional Past Medical History / Comment(s): a fib, causes shortness of breath, can feel irregular heartbeat History of Any Multi-Drug Resistant Organisms: None Reported Past Surgical History: Cholecystectomy, Heart Catheterization Additional Past Surgical History / Comment(s): Colonoscopy Past Anesthesia/Blood Transfusion Reactions: No Reported Reaction Past Psychological History: No Psychological Hx Reported Smoking Status: Current every day smoker Past Alcohol Use History: Occasional Past Drug Use History: Marijuana - Past Family History Father Family Medical History: No Reported History Mother Family Medical History: Coronary Artery Disease (CAD) Medications and Allergies Home Medications Medication Instructions Recorded Confirmed Type Apixaban [Eliquis] 5 mg PO BID 04/12/22 08/05/24 History Furosemide [Lasix] 40 mg PO DAILY 04/12/22 08/05/24 History Amiodarone [Cordarone] 200 mg PO DAILY 12/31/22 08/05/24 History Metoprolol Succinate (ER) [Toprol 25 mg PO DAILY 07/20/24 08/05/24 History XL] lisinopriL [Zestril] 20 mg PO BID 07/20/24 08/05/24 History Aspirin 81 mg PO DAILY #90 tab 07/31/24 08/05/24 Rx Atorvastatin [Lipitor] 40 mg PO HS #90 tab 07/31/24 08/05/24 Rx Budesonide-Formot 160-4.5 Mcg 2 puff INHALATION RT-BID 30 Days 07/31/24 08/05/24 Rx [Symbicort 160-4.5 Mcg Inhaler] #1 each Fluticasone Nasal [place] [Flonase 2 spray EA NOSTRIL DAILY PRN ml 07/31/24 08/05/24 Rx Nasal [place]] Spironolactone [Aldactone] 25 mg PO DAILY #90 tablet 07/31/24 08/05/24 Rx amLODIPine [Norvasc] 5 mg PO DAILY #90 tab 07/31/24 08/05/24 Rx metFORMIN HCL [Glucophage] 500 mg PO BID #60 tab 07/31/24 08/05/24 Rx predniSONE See Taper PO DAILY #32 tab 07/31/24 08/05/24 Rx Apixaban [Eliquis Starter Pack 5 - 10 mg PO DIRECTED 30 Days 08/06/24 Rx (for VTE)] #1 each Allergies Allergy/AdvReac Type Severity Reaction Status Date / Time No Known Allergies Allergy Verified 08/04/24 20:36 Physical Exam Vitals: Vital Signs Temp Pulse Resp BP Pulse Ox FiO2 08/10/24 12:52 95 08/10/24 12:48 72 08/10/24 12:33 68 08/10/24 12:06 60 08/10/24 10:30 68 22 118/55 93 L 08/10/24 10:00 67 26 H 117/53 93 L 08/10/24 09:52 70 08/10/24 09:47 77 08/10/24 09:45 76 08/10/24 09:30 63 25 H 132/58 95 08/10/24 09:26 62 98 60 08/10/24 09:25 60 08/10/24 09:00 24 116/54 95 08/10/24 08:30 61 26 H 121/73 99 08/10/24 08:00 97.8 F 62 24 121/60 100 70 08/10/24 07:30 60 20 123/54 100 08/10/24 07:00 64 24 138/76 100 08/10/24 06:30 63 26 H 172/83 95 08/10/24 06:00 69 24 162/66 99 08/10/24 05:30 74 32 H 111/48 97 08/10/24 05:00 66 28 H 119/57 98 08/10/24 04:54 90 08/10/24 04:53 70 08/10/24 04:52 61 08/10/24 04:30 62 24 110/48 94 L 08/10/24 04:00 97.6 F 60 23 115/85 100 70 08/10/24 03:30 64 19 114/66 94 L 08/10/24 03:00 59 L 19 101/52 100 08/10/24 02:30 61 21 111/59 94 L 08/10/24 02:00 64 21 103/48 96 08/10/24 01:30 61 24 114/58 99 08/10/24 01:00 63 23 118/59 94 L 08/10/24 00:30 65 22 113/71 94 L 08/10/24 00:00 97.6 F 70 27 H 121/75 95 70 08/09/24 23:44 70 08/09/24 23:33 68 08/09/24 23:30 66 27 H 122/60 99 08/09/24 23:21 67 14 122/60 98 08/09/24 23:00 67 13 126/70 99 70 08/09/24 22:40 70 08/09/24 22:30 67 13 121/103 95 08/09/24 22:00 74 31 H 124/75 88 L 08/09/24 21:30 69 25 H 135/79 94 L 08/09/24 21:00 72 25 H 141/62 98 08/09/24 20:30 72 27 H 135/63 92 L 08/09/24 20:04 78 08/09/24 20:00 97.8 F 73 19 117/75 98 08/09/24 19:54 75 08/09/24 19:53 73 08/09/24 19:49 94 L 90 08/09/24 19:43 72 08/09/24 19:30 67 23 127/60 92 L 100 08/09/24 19:00 72 26 H 127/46 87 L 08/09/24 18:30 70 21 124/59 96 08/09/24 18:00 70 36 H 137/90 91 L 100 08/09/24 17:30 75 23 129/58 92 L 08/09/24 17:00 97.9 F 78 20 125/63 92 L 100 08/09/24 16:30 75 29 H 129/62 91 L 08/09/24 16:00 70 29 H 120/78 93 L 100 08/09/24 15:34 70 08/09/24 15:30 68 25 H 127/60 99 08/09/24 15:23 68 96 90 08/09/24 15:00 61 22 123/66 92 L 100 08/09/24 14:30 68 12 124/103 92 L 08/09/24 14:00 62 20 128/66 92 L 08/09/24 13:30 62 36 H 126/73 95 Intake and Output 08/09/24 08/10/24 08/10/24 22:59 06:59 14:59 Intake Total 2057.706 655.717 332.183 Output Total 575 550 250 Balance 1482.706 105.717 82.183 Intake: IV 325 100 Cefepime 2 gm In Sodium 325 100 Chloride 0.9% 100 ml @ 25 mls/hr IVPB Q12H [facility] Rx# :[id number] Intake, IV Titration 122.706 305.717 232.183 Amount Insulin Regular 100 unit 22.706 55.717 32.183 In Sodium Chloride 0.9% 100 ml @ Titrate IV .Q0M [facility] Rx#:[id number] Sodium Chloride 0.45% 1, 100 250 200 000 ml @ 50 mls/hr IV . Q20H [facility] Rx#:[id number] Oral 1610 350 Output: Urine 575 550 250 Other: Voiding Method Bedside Commode Bedside Commode External Catheter External Catheter External Catheter Patient is awake, comfortable On BiPAP Examination of the heart S1 and S2 Examination of the lungs bilateral breath sounds are heard Abdomen is soft nontender Examination of lower extremity shows edema 2+ bilaterally [employer] PHYSICIAN exam grossly intact Results - Lab Results Most recent lab results ABG pH 7.37 (7.35-7.45) 08/08/24 07:37 ABG pCO2 42 mmHg (35-45) 08/08/24 07:37 ABG pO2 80 mmHg (83-108) L 08/08/24 07:37 ABG HCO3 24 mmol/L (21-25) 08/08/24 07:37 ABG O2 Saturation 95.9 % (94-97) 08/08/24 07:37 Calcium 8.6 mg/dL (8.4-10.2) 08/10/24 05:22 Phosphorus 4.2 mg/dL (2.5-4.5) 08/09/24 06:55 Magnesium 2.3 mg/dL (1.6-2.3) 08/09/24 06:55 08/10/24 05:22 08/10/24 05:22 Assessment and Plan Assessment: 1. Acute renal injury, ATN associated with underlying infection and borderline low blood pressures in the setting of use of SAGAR inhibitors. May continue with IV diuretics. Ultrasound shows no evidence of obstruction. UA is benign. 2. Acute hypoxic respiratory failure secondary to pneumonia volume overload 3. Volume overload 4. CHF with preserved ejection fraction of 55 to 60% noted this admission 5. Hypervolemic hyponatremia. Patient was also maintained on hypotonic IV fluids which contributed to the hyponatremia 6. Influenza A infection status post Tamiflu during previous hospitalization about 3 weeks ago Plan: DC half-normal saline Continue with Lasix Repeat labs in a.m. DC lisinopril Continue with Aldactone Monitor potassium Continue to avoid nephrotoxic agents Thank you for the consultation. We will continue to follow the patient with you during his hospitalization.
[2024-08-10 14:27] LABS: C-ANCA <1:20 Titer (<1:20)
[2024-08-10 14:30] LABS: Glucose,Whole Blood 182 mg/dL (70-110)
[2024-08-10 15:12] LABS: Glucose,Whole Blood 157 mg/dL (70-110)
[2024-08-10 16:12] LABS: Glucose,Whole Blood 149 mg/dL (70-110)
--- NOTE | 2024-08-10 17:03 | P.PN ---
Subjective Progress Note Date: 08/10/24 Principal diagnosis: Reason for follow-up is pneumonia Patient is a 64-year-old male with a past medical history significant for diabetes mellitus hypertension hyperlipidemia pneumonia atrial fibrillation currently everyday smoker presenting to the hospital for evaluation of increasing shortness of breath patient has been diagnosed with multifocal pneumonia prompting this consultation. On today's evaluation that is 08/10/2024, patient has been afebrile, patient has been on BiPAP dependent currently requiring 60% FiO2 but denies any worsening shortness of breath or cough no abdominal pain or diarrhea. Patient white count is 21.7 creatinine is 1.97 sputum culture obtained report pending Objective - Vital Signs Vital signs: Vital Signs Temp 97.8 F 08/10/24 08:00 Pulse 72 08/10/24 12:48 Resp 22 08/10/24 10:30 BP 118/55 08/10/24 10:30 Pulse Ox 95 08/10/24 12:52 FiO2 60 08/10/24 12:06 Intake & Output 08/09/24 08/10/24 08/10/24 18:59 06:59 18:59 Intake Total 0553.678 1197.659 332.183 Output Total 400 900 250 Balance 839.569 667.659 82.183 Intake: IV 300 100 100 Cefepime 2 gm In Sodium 300 100 100 Chloride 0.9% 100 ml @ 25 mls/hr IVPB Q12H [facility] Rx# :[id number] Intake, IV Titration 29.569 417.659 232.183 Amount Insulin Regular 100 unit 29.569 67.659 32.183 In Sodium Chloride 0.9% 100 ml @ Titrate IV .Q0M [facility] Rx#:[id number] Sodium Chloride 0.45% 1, 350 200 000 ml @ 50 mls/hr IV . Q20H [facility] Rx#:[id number] Oral 910 1050 Output: Urine 400 900 250 Other: Voiding Method Bedside Commode Bedside Commode External Catheter External Catheter External Catheter - Exam GENERAL DESCRIPTION: An elderly male lying in bed in no distress RESPIRATORY SYSTEM: Unlabored breathing , coarse breath sounds bilaterally HEART: S1 S2 regular rate and rhythm , ABDOMEN: Soft , no tenderness EXTREMITIES: No edema feet - Labs CBC & Chem 7: 08/10/24 05:22 08/10/24 05:22 Labs: Abnormal Lab Results - Last 24 Hours (Table) 08/09/24 08/09/24 08/09/24 Range/Units 13:53 15:29 16:50 WBC (3.8-10.6) k/uL RBC (4.30-5.90) m/uL Hgb (13.0-17.5) gm/dL Hct (39.0-53.0) % Neutrophils # (1.3-7.7) k/uL Lymphocytes # (1.0-4.8) k/uL Sodium (137-145) mmol/L BUN (9-20) mg/dL Creatinine (0.66-1.25) mg/dL Glucose (74-99) mg/dL POC Glucose (mg/dL) 171 H 249 H 298 H (70-110) mg/dL 08/09/24 08/09/24 08/09/24 Range/Units 17:52 19:42 21:10 WBC (3.8-10.6) k/uL RBC (4.30-5.90) m/uL Hgb (13.0-17.5) gm/dL Hct (39.0-53.0) % Neutrophils # (1.3-7.7) k/uL Lymphocytes # (1.0-4.8) k/uL Sodium (137-145) mmol/L BUN (9-20) mg/dL Creatinine (0.66-1.25) mg/dL Glucose (74-99) mg/dL POC Glucose (mg/dL) 282 H 308 H 269 H (70-110) mg/dL 08/09/24 08/09/24 08/09/24 Range/Units 21:56 23:09 23:58 WBC (3.8-10.6) k/uL RBC (4.30-5.90) m/uL Hgb (13.0-17.5) gm/dL Hct (39.0-53.0) % Neutrophils # (1.3-7.7) k/uL Lymphocytes # (1.0-4.8) k/uL Sodium (137-145) mmol/L BUN (9-20) mg/dL Creatinine (0.66-1.25) mg/dL Glucose (74-99) mg/dL POC Glucose (mg/dL) 244 H 188 H 155 H (70-110) mg/dL 08/10/24 08/10/24 08/10/24 Range/Units 02:22 03:26 05:20 WBC (3.8-10.6) k/uL RBC (4.30-5.90) m/uL Hgb (13.0-17.5) gm/dL Hct (39.0-53.0) % Neutrophils # (1.3-7.7) k/uL Lymphocytes # (1.0-4.8) k/uL Sodium (137-145) mmol/L BUN (9-20) mg/dL Creatinine (0.66-1.25) mg/dL Glucose (74-99) mg/dL POC Glucose (mg/dL) 128 H 141 H 234 H (70-110) mg/dL 08/10/24 08/10/24 08/10/24 Range/Units 05:22 05:22 06:10 WBC 21.7 H (3.8-10.6) k/uL RBC 2.62 L (4.30-5.90) m/uL Hgb 7.9 L (13.0-17.5) gm/dL Hct 25.0 L (39.0-53.0) % Neutrophils # 20.7 H (1.3-7.7) k/uL Lymphocytes # 0.4 L (1.0-4.8) k/uL Sodium 128 L (137-145) mmol/L BUN 95 H (9-20) mg/dL Creatinine 1.97 H (0.66-1.25) mg/dL Glucose 186 H (74-99) mg/dL POC Glucose (mg/dL) 258 H (70-110) mg/dL 08/10/24 08/10/24 08/10/24 Range/Units 07:10 08:02 09:14 WBC (3.8-10.6) k/uL RBC (4.30-5.90) m/uL Hgb (13.0-17.5) gm/dL Hct (39.0-53.0) % Neutrophils # (1.3-7.7) k/uL Lymphocytes # (1.0-4.8) k/uL Sodium (137-145) mmol/L BUN (9-20) mg/dL Creatinine (0.66-1.25) mg/dL Glucose (74-99) mg/dL POC Glucose (mg/dL) 278 H 245 H 224 H (70-110) mg/dL 08/10/24 08/10/24 08/10/24 Range/Units 10:03 11:08 12:15 WBC (3.8-10.6) k/uL RBC (4.30-5.90) m/uL Hgb (13.0-17.5) gm/dL Hct (39.0-53.0) % Neutrophils # (1.3-7.7) k/uL Lymphocytes # (1.0-4.8) k/uL Sodium (137-145) mmol/L BUN (9-20) mg/dL Creatinine (0.66-1.25) mg/dL Glucose (74-99) mg/dL POC Glucose (mg/dL) 214 H 203 H 218 H (70-110) mg/dL 08/10/24 Range/Units 12:52 WBC (3.8-10.6) k/uL RBC (4.30-5.90) m/uL Hgb (13.0-17.5) gm/dL Hct (39.0-53.0) % Neutrophils # (1.3-7.7) k/uL Lymphocytes # (1.0-4.8) k/uL Sodium (137-145) mmol/L BUN (9-20) mg/dL Creatinine (0.66-1.25) mg/dL Glucose (74-99) mg/dL POC Glucose (mg/dL) 224 H (70-110) mg/dL Microbiology - Last 24 Hours (Table) 08/04/24 20:48 Blood Culture - Final Blood Assessment and Plan (1) Leukocytosis Current Visit: Yes Status: Acute Code(s): D72.829 - ELEVATED WHITE BLOOD CELL COUNT, UNSPECIFIED SNOMED Code(s): 722649407 (2) Bilateral pneumonia Current Visit: Yes Status: Acute Code(s): J18.9 - PNEUMONIA, UNSPECIFIED ORGANISM SNOMED Code(s): 783043220 Plan: 1patient presented hospital with increasing shortness of breath and chest pain which is likely multifactorial in this patient who did have evidence of PE on the CT there is also evidence of multifocal pneumonia with elevated white count and recently acute influenza A will need to cover for resistant gram-positive as well as gram-negative pathogen for post influenza pneumonia 2-patient will bring up sputum and sputum culture has been sent results will be followed serologies currently pending 3-patient will be treated with cefepime and itraconazole and monitor clinical course closely Dictation was produced using [employer] dictation software. please excuse any grammatical, word or spelling errors. Time with Patient: Less than 30
[2024-08-10 17:07] LABS: Glucose,Whole Blood 121 mg/dL (70-110)
[2024-08-10 18:10] LABS: Glucose,Whole Blood 135 mg/dL (70-110)
[2024-08-10 19:01] LABS: Glucose,Whole Blood 185 mg/dL (70-110)
[2024-08-10 20:12] LABS: Glucose,Whole Blood 230 mg/dL (70-110)
--- NOTE | 2024-08-10 20:30 | P.PN ---
Progress Note - Text Progress Note Date: 08/10/24 Patient is a 64-year-old male with a PMH of atrial fibrillation on Eliquis, COPD on 2 L home oxygen, [id number]-iwjxjoxzo diabetes mellitus, hyperlipidemia, hypertension presenting with shortness of breath. Patient was previously admitted here for acute hypoxic respiratory failure secondary to influenza pneumonia and was discharged on 2 L of home oxygen. Patient states he has been feeling short of breath while at rest. He reports that since being discharged the home oxygen has not been sufficient. He states that he had to keep increasing his oxygen. Patient says shortness of breath is slightly relieved when he is laying down. Denies any orthopnea or PND. Patient endorses a nonpr oductive cough that is chronic in nature, but says it has been getting worse. Patient admits to having fever, chills. Patient also admits to having non- radiating, pressure-like chest pain over the last few days. Chest pain is not related to exertion and he had no alleviating or aggravating factors. Patient denies any headache, vision changes, nausea, vomiting, diarrhea, abdominal pain, urinary symptoms. EKG independently interpreted displaying sinus rhythm with left bundle branch block that has been seen on prior EKG, rate 65 bpm, QTc 451 ms CXR independently interpreted displaying bilateral multifocal airspace opacities Chest CTA displaying acute segmental and subsegmental pulmonary emboli within the right and middle lower lobes, no saddle embolus, no RV strain, chronic interstitial loading disease Venous Doppler B/L LE displaying no evidence of acute DVT Troponin 0.049, 0.055, proBNP 8810, D-dimer 4.87, WBC 22.6, Hgb 11.0, HCT 35.2, MCV 93.7, platelet 322, PT 11.8, INR 1.1, APTT 28, sodium 133, potassium 4.2, CO2 24, BUN 30, creatinine 1.27, glucose 135 VBG pH 7.52, pCO2 32 T98.2 F, MN 80, RR 26, BP 163/77, O2 sat 90% on BiPAP with FiO2 of 100% August 05: Overflow the ER. Up in the bed. Short of breath. Patient was on BiPAP overnight. This morning on 15 L high flow nasal cannula. Decreased appetite. Has got a cough. Some wheezing. Some sputum production. Decreased appetite. Patient is on IV heparin. Also on IV cefepime. Pulmonary following August 06: Patient did confirm that because Eliquis is very expensive patient was not taking it properly did and take it sparingly at home. Explains patient's PE. Started on Eliquis today by cardiology. IV heparin discontinued. Getting easily short of breath. Requiring BiPAP.. Some cough. Oral intake fair. On IV cefepime and vancomycin. ID following. Also on IV Lasix. Due to worsening renal function will DC vancomycin August 07: Saw this afternoon. On BiPAP. 60%. Ensure ordered. All blood work ordered by pulmonary including fungal. Patient currently on IV cefepime and Levaquin. IV Solu-Medrol. Remain short of breath. Tired. Being followed by pulmonary and ID. Chest x-ray film personally reviewed by me-showing pulm edema bilateral infiltrates especially at the bases. Renal ultrasound nonspecific. UA showing protein 1+. August 08: Remain short of breath. Sitting up in bed. Not able to come off the BiPAP. Remains on IV cefepime. Accu-Cheks running high. Put on insulin drip. On IV Solu-Medrol. Oral intake fair. August 09: Patient remains short of breath. Unable to get off BiPAP. FiO2 increased to 70%. 04/30. Per Dr. Goode: Patient be moved to the ICU. Poor oral intake. Remains on insulin drip. IV Solu-Medrol. Eliquis. IV cefepime and Levaquin. Tired. Sitting up in bed leaning forward short of breath. Chest x-ray film personally reviewed by me: Scattered bilateral infiltrates August 10: ICU. Remains on BiPAP. Decreased oral intake. Sitting up. Short of breath. On IV cefepime. Insulin drip. IV Solu-Medrol. DuoNeb Q4. Rather tired. Also yesterday evening at epistaxis. Nasal packing. Active Medications Albuterol/Ipratropium (Ipratropium-Albuterol 3 Ml Neb) 3 ml INHALATION RT-QID PRN PRN Reason: Shortness Of Breath Or Wheezing Albuterol/Ipratropium (Ipratropium-Albuterol 3 Ml Neb) 3 ml INHALATION RT-Q4H [facility] Last Admin: 08/10/24 20:13 Dose: 3 ml Alprazolam (Alprazolam 0.5 Mg Tab) 0.5 mg PO TID PRN PRN Reason: Anxiety Last Admin: 08/09/24 22:25 Dose: 0.5 mg Amlodipine Besylate (Amlodipine 5 Mg Tab) 5 mg PO DAILY [facility] Last Admin: 08/10/24 10:17 Dose: 5 mg Aspirin (Aspirin 81 Mg) 81 mg PO DAILY [facility] Last Admin: 08/10/24 10:17 Dose: 81 mg Budesonide (Budesonide 1 Mg/2 Ml Nebu) 1 mg INHALATION RT-BID [facility] Last Admin: 08/10/24 20:13 Dose: 1 mg Dextrose/Water (Dextrose 50% Syringe 50 Ml) 25 ml IVP PER PROTOCOL PRN; Protocol PRN Reason: Hypoglycemia Dextrose/Water (Dextrose 50% Syringe 50 Ml) 50 ml IVP PER PROTOCOL PRN; Protocol PRN Reason: Hypoglycemia Formoterol Fumarate (Formoterol Fumarate 20 Mcg/2 Ml Nebu) 20 mcg INHALATION RT-BID [facility] Last Admin: 08/10/24 20:13 Dose: 20 mcg Furosemide (Furosemide 10 Mg/Ml 4 Ml Vial) 40 mg IV Q12HR [facility] Last Admin: 08/10/24 10:16 Dose: 40 mg Cefepime HCl 2 gm/ Sodium (Chloride) 100 mls @ 25 mls/hr IVPB Q12H [facility]; Protocol Last Admin: 08/10/24 10:16 Dose: 25 mls/hr Insulin Human Regular 100 unit (/ Sodium Chloride) 100 mls @ 0 mls/hr IV .Q0M [facility]; Protocol Last Admin: 08/10/24 19:04 Dose: 4.5 units/hr, 4.5 mls/hr Itraconazole (Itraconazole 100 Mg Cap) 200 mg PO BID [facility]; Protocol Last Admin: 08/10/24 10:36 Dose: 200 mg Levofloxacin (Levofloxacin 750 Mg Tab) 750 mg PO Q48H [facility]; Protocol Last Admin: 08/09/24 17:35 Dose: 750 mg Lorazepam (Lorazepam 1 Mg Tab) 1 mg PO HS PRN PRN Reason: Anxiety Last Admin: 08/09/24 22:25 Dose: 1 mg Methylprednisolone Sodium Succinate (Methylprednisolone Sod Succi 125 Mg/2 Ml Vial) 60 mg IV Q8H [facility] Last Admin: 08/10/24 18:27 Dose: 60 mg Metoprolol Succinate (Metoprolol Succinate (Er) 25 Mg Tab.Er.24h) 25 mg PO DAILY [facility] Last Admin: 08/10/24 10:16 Dose: 25 mg Morphine Sulfate (Morphine Sulfate 4 Mg/Ml Syringe) 4 mg IV Q4HR PRN PRN Reason: Severe Pain (Scale 7 to 10) Naloxone HCl (Naloxone 0.4 Mg/Ml 1 Ml Vial) 0.2 mg IV Q2M PRN PRN Reason: Opioid Reversal Ondansetron HCl (Ondansetron 4 Mg/2 Ml Vial) 4 mg IVP Q8HR PRN PRN Reason: Nausea And Vomiting Last Admin: 08/07/24 14:52 Dose: 4 mg Oxymetazoline HCl (Oxymetazoline 0.05% Nasl [place] 1 [place] Bottle) 2 spray NASAL BID [facility] Last Admin: 08/10/24 11:49 Dose: Not Given Pantoprazole Sodium (Pantoprazole 40 Mg/10 Ml Vial) 40 mg IV DAILY [facility] Last Admin: 08/10/24 10:16 Dose: 40 mg Potassium Chloride (Potassium Chloride Er 20 Meq Tab.Er) 20 meq PO DAILY [facility] Last Admin: 08/10/24 10:17 Dose: 20 meq Sodium Chloride (Sodium Chloride 0.65% Nasal [place] 44 Ml Btl) 2 spray NASAL QID PRN PRN Reason: Dry Nasal Passages Spironolactone (Spironolactone 25 Mg Tab) 25 mg PO DAILY [facility] Last Admin: 08/10/24 10:17 Dose: 25 mg Social history: Tobacco: Current [id number] smoker Alcohol: Occasional alcohol use Recreational drugs: Marijuana Travel: No recent travel On examination: VITAL SIGNS: 97.4, 68, 22, 114 x 50, 96% on BiPAP 60% GENERAL APPEARANCE: Sitting up in bed, leaning forward, short of breath HEENT: Normal external appearance of nose and ear. Oral cavity normal EYES: Pupils equal. Conjunctiva normal. NECK: JVD unable to assess. Mass not palpable. RESPIRATORY: Respiratory effort increased, not able to speak in full sentences. Accessory muscles working. Lungs diminished breath sounds some scattered crackles prolonged expiration. CARDIOVASCULAR: First and second sounds normal. No edema. ABDOMEN: Soft. Liver and spleen not palpable. No tenderness. No mass palpable. PSYCHIATRY: Tired. Mood and affect tired INVESTIGATIONS, reviewed in the clinical context: August 10: White count 21.7 hemoglobin 7.9 platelets 201 sodium 128 potassium 4.5 BUN 95 creatinine 1.97 Mild 16: White count 21.1 hemoglobin 9.1 platelets 245 potassium 4.2 BUN 68 creatinine 1.73 August 08: White count 8.2 hemoglobin 9.2 platelets 232 ABG: pH 7.3 pCO2 42 pO2 80 sodium 133 potassium 3.6 creatinine 1.69. Accu-Cheks high August 07: White count 20.8 hemoglobin 9.2 platelets 265 sodium 134 BUN 44 creatinine 1.54. Chest x-ray: Pulm edema/bilateral infiltrates August 06: Sodium 132 potassium 3.4 BUN 35 creatinine 1.51 August 05: White count 7.2 hemoglobin 10.3 platelets 242 sodium 136 potassium 3.8 BUN 28 creatinine 1.37 Troponin I: 0.049, 0.055, 0.051 Chest x-ray film personally reviewed by me-bilateral infiltrates. Effusion/pulm edema cardiomegaly. Venous Doppler: No DVT Chest CTA: Acute segmental and subsegmental pulm embolism within the right middle and right lower lobes. No RV strain. Chronic interstitial lung disease. Previous labs: Creatinine 1.63 in October 2022 Assessment/Plan: #. Acute pulmonary embolism, non-massive [segmental and subsegmental within the right middle and lower lobes. No RV strain IV heparin, switched over to Eliquis #. Sepsis likely secondary to -viral pneumonia. Secondary bacterial component probable IV cefepime. And Levaquin- ID and pulmonary following #. Acute hypoxic respiratory failure, secondary to above: Not improving Remains on BiPAP, 60 % #. Acute COPD exacerbation, in a prior smoker: Not improving DuoNeb Q4. IV Solu-Medrol 60 mg q8. Nebulized Pulmicort #. Acute on chronic heart failure with reduced ejection fraction (EF 45 to 50%): Slow to respond IV Lasix 40 mg every 12. Aldactone. #. Chronic hypoxic respiratory failure from underlying COPD, 2 L home O2 #. Rpg-txbjevy-ghcjdmklo type 2 diabetes, uncontrolled with hyperglycemia secondary steroids: Not improving Insulin subcu sliding scale. Stop Levemir. Currently on insulin drip y Accu-Cheks ACHS - chronic kidney disease stage III from nephrosclerosis and diabetic nephropathy [creatinine 1.63 in October 2022] Renal ultrasound.: Suboptimal study. No corticomedullary comment. UA protein 1+ #. Essential hypertension Amlodipine. Zestril. #. Hyperlipidemia Lipitor -Full code Remains rather ill. ICU. Past Medical History Past Medical History: Atrial Fibrillation, Diabetes Mellitus, Hyperlipidemia, Hypertension, Pneumonia, Supraventricular Tachycardia (SVT) Additional Past Medical History / Comment(s): a fib, causes shortness of breath, can feel irregular heartbeat History of Any Multi-Drug Resistant Organisms: None Reported Past Surgical History: Cholecystectomy, Heart Catheterization Additional Past Surgical History / Comment(s): Colonoscopy Past Anesthesia/Blood Transfusion Reactions: No Reported Reaction Past Psychological History: No Psychological Hx Reported Smoking Status: Current every day smoker Past Alcohol Use History: Occasional Past Drug Use History: Marijuana
[2024-08-10 21:54] LABS: Glucose,Whole Blood 285 mg/dL (70-110)
[2024-08-10 22:59] LABS: Glucose,Whole Blood 298 mg/dL (70-110)
[2024-08-11 00:21] LABS: Glucose,Whole Blood 283 mg/dL (70-110)
[2024-08-11 01:48] LABS: Glucose,Whole Blood 216 mg/dL (70-110)
[2024-08-11 03:08] LABS: Glucose,Whole Blood 197 mg/dL (70-110)
[2024-08-11 04:19] LABS: Glucose,Whole Blood 119 mg/dL (70-110)
[2024-08-11 05:25] LABS: Glucose,Whole Blood 133 mg/dL (70-110)
[2024-08-11 06:09] LABS: Basophils % (A) 0 %; Eosinophils % (A) 0 %; HCT 23.3 % (39.0-53.0); HGB 7.4 gm/dL (13.0-17.5); Lymphocytes # (A) 0.4 k/uL (1.0-4.8); Lymphocytes % (A) 2 %; MCH 30.3 pg (25.0-35.0); MCHC 31.7 g/dL (31.0-37.0); MCV 95.6 fL (80.0-100.0); Mean Platelet Volume 10.1; Monocytes # (A) 0.6 k/uL (0-1.0); Monocytes % (A) 3 %; Neutrophils # (A) 21.7 k/uL (1.3-7.7); Neutrophils % (A) 95 %; Platelet Count 200 k/uL (150-450); RBC 2.44 m/uL (4.30-5.90); RDW 13.1 % (11.5-15.5); WBC 22.8 k/uL (3.8-10.6)
[2024-08-11 06:27] LABS: African American GFR (CKD) 37 (>60 ml/min/1.73 sqM); Anion Gap 7 mmol/L; Calcium 8.9 mg/dL (8.4-10.2); Carbon Dioxide 25 mmol/L (22-30); Chloride 98 mmol/L (98-107); Glucose 106 mg/dL (74-99); Non-African American GFR(CKD) 32 (>60 ml/min/1.73 sqM); Potassium 4.2 mmol/L (3.5-5.1); Sodium 130 mmol/L (137-145)
[2024-08-11 06:32] LABS: Blood Urea Nitrogen 117 mg/dL (9-20)
[2024-08-11 06:50] LABS: Glucose,Whole Blood 196 mg/dL (70-110)
--- NOTE | 2024-08-11 07:20 | XR ---
EXAMINATION TYPE: XR chest 1V portable DATE OF EXAM: 08/11/2024 5:36 AM COMPARISON: Chest radiographs from 08/09/2024 CLINICAL INDICATION: Male, 64 years old with history of CHF; [facility] TECHNIQUE: XR chest 1V portable Frontal view of the chest. FINDINGS: Lungs/Pleura: No evidence of focal consolidation or pneumothorax. Blunting of the costophrenic angles is present. Pulmonary vascularity: Pulmonary vascular congestion. Heart/mediastinum: Cardiomediastinal silhouette is enlarged and stable. Musculoskeletal: No acute osseous pathology. Other findings: None IMPRESSION: Cardiomegaly, pulmonary vascular congestion and bilateral pleural effusions. Correlate with BNP for c ongestive heart failure. [facility], , 08/11/2024 7:17 AM
[2024-08-11 10:21] LABS: Glucose,Whole Blood 181 mg/dL (70-110)
[2024-08-11 12:50] LABS: Glucose,Whole Blood 133 mg/dL (70-110)
--- NOTE | 2024-08-11 13:34 | P.PN ---
Subjective Progress Note Date: 08/11/24 Principal diagnosis: Acute on chronic hypoxic respiratory failure, multifactorial Patient is a 64-year-old male with past medical history significant for atrial fibrillation, diabetes mellitus, CKD stage III, hypertension, hyperlipidemia, tobacco smoker. Of note, recently had a prolonged hospitalization 07/19/2024 through 07/31/2024. Treated for combination of influenza A, pneumonia, CHF. Completed course of antibiotics and Tamiflu. At this time, did require noninvasive BiPAP, eventually discharged on home O2. Returns with a chief complaint of shortness of breath progressing over the last 2 to 3 days. Also, reports sudden onset substernal chest pain that developed the night prior and has been persistent. On arrival to the ED, found to be in some respiratory distress, and placed on BiPAP. Workup in the emergency department including a chest x-ray showing multifocal infiltrates concerning for pneumonia or pulmonary edema. D-dimer was elevated in setting CT angio protocol which was positive for segmental and subsegmental right middle lobe and right lower lobe pulmonary emboli. No saddle pulmonary embolus. Pulmonary artery mildly enlarged. Preserved RV to LV ratio. There were diffuse coarse reticular infiltrates, as well as, groundglass lung attenuation, cystic changes, with concerns for interstitial lung disease. Patient does take Eliquis for his history of atrial fibrillation. Does state he has missed some doses lately. CBC: WBC count 22.6, hemoglobin 11, platelets 322. CMP: Sodium 133, potassium 4.2, chloride 101, serum bicarb 24, BUN 30, creatinine 1.27, glucose 135. Lactic 1.5. VBG with a pH of 7.5 and pCO2 of 32. EKG: Sinus rhythm, rate 65 bpm, left bundle branch block, not acute. Elevated serial troponins 0.049 and 0.055 respectively. NT proBNP elevated 8807. Patient is currently being evaluated in the emergency department. He is alert and some moderate respiratory distress. On BiPAP with settings 12/5 and FiO2 60%. Tachypneic, breathing around 40 breaths/min. Endorses progressive worsening difficulty in breathing over last couple days. He has tried to increase his supplemental oxygen at home without any relief. Denies previous history of DVT or PE. Associated nonproductive cough. Denies sputum production or hemoptysis. Substernal nonradiating chest pain persist. Denies any fevers or chills. Denies heart palpitations or syncopal events. Denies swelling in the lower extremities. Heart rhythm is normal sinus on bedside monitor. Blood pressure has been normotensive, did receive 2 L of crystalloid fluid bolus earlier. Not requiring any vasopressors. Normal saline is infusing at 150 mL/h. IV heparin infusing per protocol 08/06/2024, the patient is being seen for a follow-up. The patient is alternating between BiPAP at a pressure of 12/5 with an FiO2 of 60% and 15 L of oxygen by nasal cannula. He is getting slightly anxious and the patient is being provided Xanax accordingly. Fluid balance is -1.1 L over the past 24 hours. Limited echocardiogram was also done and it showed preserved LV function with an EF of around 55 to 60%. Valvular functions could not be accurately assessed as the patient's study was technically difficult study. There was however RV dilatation. Unable to estimate RV pressures. The electrolytes from today showed a creatinine of 1.5 with a BUN of 35. Bicarb is at 21. Sodium is at 132. The patient remains on DuoNeb updrafts. The patient remains on a combination of cefepime and vancomycin. The patient was taken off the IV hep lizzette and the patient was started on anticoagulation with Eliquis. Remains on IV Solu-Medrol 60 mg every 6 hours. Remains on Aldactone. Remains on IV Lasix 40 mg every 12 hours. On today's evaluation of 08/07/2024, the patient is overall condition is essentially unchanged. Continues to be hypoxic, continues to be on BiPAP and the patient remains at a pressure of 12/5 with an FiO2 of 60%. Continues to have crackles in lung base bilaterally. White cell count remains elevated at 20 with a hemoglobin 9.2. Very much BiPAP dependent as the patient desaturates once taken off the BiPAP. BUN is 44 with a platelet of 1.5. Sodium levels at 134 and a potassium level is at 3.4. Remains on DuoNeb updrafts. Remains on IV Lasix 40 mg every 12 hours. Remains on Aldactone. Remains on bronchodilators. Remains on steroids. Empiric antibiotic coverage with IV cefepime. Reviewed the CAT scan again and there is some chronic interstitial changes and the patient has diffuse infiltrates with areas of groundglass. Consider acute interstitial pneumonias. Consider fungal pneumonias. On today's evaluation of 08/08/2024, the patient is feeling slightly better compared to yesterday. The patient is off the BiPAP and the patient is currently on 15 L of oxygen by nasal cannula. Remains on bronchodilators. Remains on IV Solu-Medrol. Remains on IV Lasix. Antibiotic coverage including combination of cefepime, Levaquin orally and itraconazole orally. Fungal antibodies are still pending. Meanwhile, rheumatologic profile showed a negative rheumatoid factor and negative MARISA. Legionella urine antigen is still pending for now. Clinically however, the patient is feeling slightly improved compared to yesterday. His chest x-ray continues to show multifocal airspace disease more so in the right lung. Fluid balance has been negative. The patient's creatinine is currently at 1.6 with a BUN of 54 and a sodium levels at 133. I am going to taper the steroids. The white cell count is 18.2 with a hemoglobin of 9.2. On 08/09/2024, the patient is transferred to the intensive care unit for closer monitoring. As mentioned, the patient developed acute hypoxic respiratory failure with diffuse bilateral pulmonary filtrates discussed earlier. The patient was able to tolerate Airvo, however, overnight, the patient developed epistaxis. Therefore was discontinued the patient was placed back on BiPAP and his current BiPAP is running at a pressure of 12 over 5 cm of water with an FiO2 of 80%. The patient seems to be quite dependent on the BiPAP. Unable to drop the FiO2 any further. Repeat chest x-ray was done and shows stable diffuse bilateral pulm infiltrates which remains essentially unchanged compared to yesterday. Clinically, the patient is awake and alert. He is reported to have some congested cough. No significant sputum production. No chest pain. No hemoptysis. Noted, over the past 48 hours, the patient was diuresed with IV Lasix. Nevertheless, we have not seen any improvement in the patient's oxygenation. The patient was negative fluid balance. His BNP today is at 68 with a creatinine of 1.7. Based on that, I stopped diuretics. Rest of the electrolytes are all within normal limits. White cell count of 21 with a hemoglobin 9.1 and a platelet count of 245. The patient remains on broad- spectrum antibiotics. The patient remains on IV cefepime, itraconazole and Levaquin. Fungal antibodies are still pending for now. MARISA and rheumatoid factor were both negative. Legionella urine antigen was also negative. The patient remains on anticoagulation and I am going to drop the Eliquis dose to 5 mg p.o. twice a day. I am not absolutely convinced that the patient has a pulmonary embolism. I reviewed the CAT scan of the chest and there could be potentially some subsegmental filling defects in the right, however, the overall contrast administration was essentially poor. The patient will be monitored very closely in the intensive care unit. On a separate note, the patient was started on insulin drip for blood sugar control. Patient was seen today on 08/10/2024, remains in the ICU, remains on fluid restrictions for low sodium of 128, he is on BiPAP 12/60%, patient is presenting this time very much similar to his last presentation few weeks ago. I am familiar with this patient, and on his last admission patient responded to treatment with mostly diuretics, and steroids. This time came back with a similar presentation, he is receiving diuretics, but has been on hold for the last 24 hours, and I recommended we go back on Lasix 40 mg IV push every 12 hours, patient is receiving Solu-Medrol at 60 mg IV push every 8 hours, he is also on Levaquin's, cefepime, and he is marginal at best. In addition to this the patient had non-ST elevation myocardial infarction and flu/influenza A back on 08/04. Blood cultures have been negative, patient has leukocytosis with WBC count of 21.7 hemoglobin is 7.9. Creatinine has been slightly rising 1.51 on admission which is about his baseline, today his creatinine is 1.97 with a BUN of 95. Legionella antigen has been negative MARISA screen has been negative rheumatoid factor is negative patient continues to complain of shortness of breath, intermittent cough, and wheezing. Patient was seen today on 08/11/2024, remains in the ICU, remains on BiPAP, patient is down on FiO2 to 50%, so he is on BiPAP 12//50%. Clinically the patient is feeling better breathing easier, remains on empiric antibiotics including cefepime and Levaquin remains on Lasix 40 mg every 12 hours remains on steroids, and today I have noticed probably minimal improvement in his chest x- ray findings. Hence we will continue the same and will make Lasix 40 mg twice daily instead of 40 mg daily. WBC count is 22.8 hemoglobin 7.4 electrolytes are normal BUN is 117 creatinine 2.11 Objective - Vital Signs Vital signs: Vital Signs Temp 98.9 F 08/11/24 08:00 Pulse 74 08/11/24 13:00 Resp 23 08/11/24 13:00 BP 113/77 08/11/24 13:00 Pulse Ox 87 L 08/11/24 13:00 FiO2 50 08/11/24 08:00 Intake & Output 08/10/24 08/11/24 08/11/24 18:59 06:59 18:59 Intake Total 836.468 4721.574 93.530 Output Total 1100 750 500 Balance -665.717 592.574 -406.470 Weight 101.8 kg Intake: IV 190 210 60 .9 90 110 60 Cefepime 2 gm In Sodium 100 100 Chloride 0.9% 100 ml @ 25 mls/hr IVPB Q12H [facility] Rx# :[id number] Intake, IV Titration 244.283 72.574 33.530 Amount Insulin Regular 100 unit 44.283 72.574 33.530 In Sodium Chloride 0.9% 100 ml @ Titrate IV .Q0M [facility] Rx#:[id number] Sodium Chloride 0.45% 1, 200 000 ml @ 50 mls/hr IV . Q20H [facility] Rx#:[id number] Oral 1060 Output: Urine 1100 750 500 Other: Voiding Method External Catheter External Catheter External Catheter - Exam GENERAL EXAM: 64-year-old white male obese , on BiPAP 12/5/50% HEAD: Normocephalic and atraumatic EYES: Normal reaction of pupils, equal size. NOSE: Clear with pink turbinates. The right nostril is packed THROAT: No erythema or exudates. NECK: No masses, no JVD. CHEST: No chest wall deformity. LUNGS: Crackles persist bilaterally. CVS: S1 and S2 normal with soft systolic murmur, regular rhythm. No other extra heart sounds ABDOMEN: No hepatosplenomegaly, active bowel sounds, no guarding or rigidity. SKIN: No rashes CENTRAL NERVOUS SYSTEM: Alert oriented x 3 no gross focal deficit EXTREMITIES: 2+ bipedal edema, good pulses bilaterally. - Labs CBC & Chem 7: 08/11/24 05:19 08/11/24 05:19 Labs: Abnormal Lab Results - Last 24 Hours (Table) 08/10/24 08/10/24 08/10/24 Range/Units 14:28 15:10 16:10 WBC (3.8-10.6) k/uL RBC (4.30-5.90) m/uL Hgb (13.0-17.5) gm/dL Hct (39.0-53.0) % Neutrophils # (1.3-7.7) k/uL Lymphocytes # (1.0-4.8) k/uL Sodium (137-145) mmol/L BUN (9-20) mg/dL Creatinine (0.66-1.25) mg/dL Glucose (74-99) mg/dL POC Glucose (mg/dL) 182 H 157 H 149 H (70-110) mg/dL 08/10/24 08/10/24 08/10/24 Range/Units 17:06 18:08 19:00 WBC (3.8-10.6) k/uL RBC (4.30-5.90) m/uL Hgb (13.0-17.5) gm/dL Hct (39.0-53.0) % Neutrophils # (1.3-7.7) k/uL Lymphocytes # (1.0-4.8) k/uL Sodium (137-145) mmol/L BUN (9-20) mg/dL Creatinine (0.66-1.25) mg/dL Glucose (74-99) mg/dL POC Glucose (mg/dL) 121 H 135 H 185 H (70-110) mg/dL 08/10/24 08/10/24 08/10/24 Range/Units 20:11 21:52 22:58 WBC (3.8-10.6) k/uL RBC (4.30-5.90) m/uL Hgb (13.0-17.5) gm/dL Hct (39.0-53.0) % Neutrophils # (1.3-7.7) k/uL Lymphocytes # (1.0-4.8) k/uL Sodium (137-145) mmol/L BUN (9-20) mg/dL Creatinine (0.66-1.25) mg/dL Glucose (74-99) mg/dL POC Glucose (mg/dL) 230 H 285 H 298 H (70-110) mg/dL 03/18/25 03/18/25 03/18/25 Range/Units 00:19 01:46 03:06 WBC (3.8-10.6) k/uL RBC (4.30-5.90) m/uL Hgb (13.0-17.5) gm/dL Hct (39.0-53.0) % Neutrophils # (1.3-7.7) k/uL Lymphocytes # (1.0-4.8) k/uL Sodium (137-145) mmol/L BUN (9-20) mg/dL Creatinine (0.66-1.25) mg/dL Glucose (74-99) mg/dL POC Glucose (mg/dL) 283 H 216 H 197 H (70-110) mg/dL 08/11/24 08/11/24 08/11/24 Range/Units 04:18 05:19 05:19 WBC 22.8 H (3.8-10.6) k/uL RBC 2.44 L (4.30-5.90) m/uL Hgb 7.4 L (13.0-17.5) gm/dL Hct 23.3 L (39.0-53.0) % Neutrophils # 21.7 H (1.3-7.7) k/uL Lymphocytes # 0.4 L (1.0-4.8) k/uL Sodium 130 L (137-145) mmol/L BUN 117 H* (9-20) mg/dL Creatinine 2.11 H (0.66-1.25) mg/dL Glucose 106 H (74-99) mg/dL POC Glucose (mg/dL) 119 H (70-110) mg/dL 08/11/24 08/11/24 08/11/24 Range/Units 05:24 06:49 10:20 WBC (3.8-10.6) k/uL RBC (4.30-5.90) m/uL Hgb (13.0-17.5) gm/dL Hct (39.0-53.0) % Neutrophils # (1.3-7.7) k/uL Lymphocytes # (1.0-4.8) k/uL Sodium (137-145) mmol/L BUN (9-20) mg/dL Creatinine (0.66-1.25) mg/dL Glucose (74-99) mg/dL POC Glucose (mg/dL) 133 H 196 H 181 H (70-110) mg/dL 08/11/24 Range/Units 12:48 WBC (3.8-10.6) k/uL RBC (4.30-5.90) m/uL Hgb (13.0-17.5) gm/dL Hct (39.0-53.0) % Neutrophils # (1.3-7.7) k/uL Lymphocytes # (1.0-4.8) k/uL Sodium (137-145) mmol/L BUN (9-20) mg/dL Creatinine (0.66-1.25) mg/dL Glucose (74-99) mg/dL POC Glucose (mg/dL) 133 H (70-110) mg/dL Assessment and Plan Assessment: Impression: Acute on chronic hypoxic respiratory failure, multifactorial, I suspect this is mostly a picture of pulmonary edema, underlying pneumonia is not entirely ruled out. Hence the patient will remain on antibiotics and diuretics. Acute exacerbation of chronic systolic congestive heart failure, recent echocar diogram from 07/20/2024 estimating a left ventricular ejection fraction of 45 to 50%, moderate pulmonary hypertension, and moderate tricuspid regurgitation. Repeat echocardiogram showed improvement in LV function with ejection fraction 55% Acute leukocytosis Acute on chronic kidney disease Recent influenza A infection History of atrial fibrillation with previous cardioversion History of underlying COPD and chronic tobacco dependence Benign essential hypertension Type 2 diabetes Recommendation: Continue BiPAP 12/5/50%, titrate FiO2 down accordingly Continue bronchodilators Continue Lasix Continue Solu-Medrol Continue empiric antibiotics and antifungal patient is on cefepime and Levaquin and itraconazole Connective tissue disease workup seems to be negative Histoplasma antigen is negative Procalcitonin level is not elevated and never was elevated even on his last admission Continues to have elevated BNP level Continue to monitor in the ICU Will continue to follow C Time with Patient: Less than 30
--- NOTE | 2024-08-11 14:25 | P.PN ---
Subjective Progress Note Date: 08/11/24 The patient is a 64-year-old male who is currently admitted to the hospital with acute hypoxic respiratory failure secondary to pulmonary embolism, influenza, and pneumonia. Patient was transferred to the ICU for hypoxia despite BiPAP therapy. Over the last 24 hours his oxygen requirements have increased as well as had worsening kidney function Patient interviewed and examined resting in bed. Breathing appears to be better today, however he is more obtunded. GENERAL: Well-appearing, well-nourished. Positive for labored breathing NECK: Supple without JVD or thyromegaly. LUNGS: Breath sounds diminished to auscultation bilaterally. Respiration equal. No wheezes, rales or rhonchi. HEART: Regular rate and rhythm without murmurs, rubs or gallops. S1 and S2 heard. EXTREMITIES: Normal range of motion, no edema. No clubbing or cyanosis. Peripheral pulses intact and strong. TELEMETRY: Sinus rhythm overnight LABS: WBC 22, hemoglobin 7.4, hematocrit 23.3, platelet 200, sodium 130, potassium 4.2 , BUN 117, creatinine 2.11 IMPRESSION: Acute pulmonary emboli due to prolonged hospitalization and unable to afford Eliquis Acute hypoxic respiratory failure requiring BiPAP secondary to influenza, p neumonia, and component of heart failure NSTEMI secondary to PE, influenza and pneumonia Influenza A Pneumonia Acute on chronic systolic heart failure Acute kidney injury, worsening Cardiomyopathy with previous EF of 15 to 20% Hypertension Hyperlipidemia Persistent atrial fibrillation, currently in sinus rhythm Diabetes mellitus type 2 PLAN: Continue supportive treatment Poor prognosis due to his multiple comorbid conditions No further recommendations from the cardiac standpoint I am dictating on behalf of Dr Israel Figueroa's history/physical and assessment/plan. Objective - Vital Signs Vital signs: Vital Signs Temp 98.9 F 08/11/24 08:00 Pulse 74 08/11/24 13:00 Resp 23 08/11/24 13:00 BP 113/77 08/11/24 13:00 Pulse Ox 87 L 08/11/24 13:00 FiO2 50 08/11/24 08:00 Intake & Output 08/10/24 08/11/24 08/11/24 18:59 06:59 18:59 Intake Total 680.552 3982.574 93.530 Output Total 1100 750 500 Balance -665.717 592.574 -406.470 Weight 101.8 kg Intake: IV 190 210 60 .9 90 110 60 Cefepime 2 gm In Sodium 100 100 Chloride 0.9% 100 ml @ 25 mls/hr IVPB Q12H [facility] Rx# :[id number] Intake, IV Titration 244.283 72.574 33.530 Amount Insulin Regular 100 unit 44.283 72.574 33.530 In Sodium Chloride 0.9% 100 ml @ Titrate IV .Q0M [facility] Rx#:[id number] Sodium Chloride 0.45% 1, 200 000 ml @ 50 mls/hr IV . Q20H [facility] Rx#:[id number] Oral 1060 Output: Urine 1100 750 500 Other: Voiding Method External Catheter External Catheter External Catheter - Labs CBC & Chem 7: 08/11/24 05:19 08/11/24 05:19 Labs: Abnormal Lab Results - Last 24 Hours (Table) 08/10/24 08/10/24 08/10/24 Range/Units 14:28 15:10 16:10 WBC (3.8-10.6) k/uL RBC (4.30-5.90) m/uL Hgb (13.0-17.5) gm/dL Hct (39.0-53.0) % Neutrophils # (1.3-7.7) k/uL Lymphocytes # (1.0-4.8) k/uL Sodium (137-145) mmol/L BUN (9-20) mg/dL Creatinine (0.66-1.25) mg/dL Glucose (74-99) mg/dL POC Glucose (mg/dL) 182 H 157 H 149 H (70-110) mg/dL 08/10/24 08/10/24 08/10/24 Range/Units 17:06 18:08 19:00 WBC (3.8-10.6) k/uL RBC (4.30-5.90) m/uL Hgb (13.0-17.5) gm/dL Hct (39.0-53.0) % Neutrophils # (1.3-7.7) k/uL Lymphocytes # (1.0-4.8) k/uL Sodium (137-145) mmol/L BUN (9-20) mg/dL Creatinine (0.66-1.25) mg/dL Glucose (74-99) mg/dL POC Glucose (mg/dL) 121 H 135 H 185 H (70-110) mg/dL 08/10/24 08/10/24 08/10/24 Range/Units 20:11 21:52 22:58 WBC (3.8-10.6) k/uL RBC (4.30-5.90) m/uL Hgb (13.0-17.5) gm/dL Hct (39.0-53.0) % Neutrophils # (1.3-7.7) k/uL Lymphocytes # (1.0-4.8) k/uL Sodium (137-145) mmol/L BUN (9-20) mg/dL Creatinine (0.66-1.25) mg/dL Glucose (74-99) mg/dL POC Glucose (mg/dL) 230 H 285 H 298 H (70-110) mg/dL 08/11/24 08/11/24 08/11/24 Range/Units 00:19 01:46 03:06 WBC (3.8-10.6) k/uL RBC (4.30-5.90) m/uL Hgb (13.0-17.5) gm/dL Hct (39.0-53.0) % Neutrophils # (1.3-7.7) k/uL Lymphocytes # (1.0-4.8) k/uL Sodium (137-145) mmol/L BUN (9-20) mg/dL Creatinine (0.66-1.25) mg/dL Glucose (74-99) mg/dL POC Glucose (mg/dL) 283 H 216 H 197 H (70-110) mg/dL 08/11/24 08/11/24 08/11/24 Range/Units 04:18 05:19 05:19 WBC 22.8 H (3.8-10.6) k/uL RBC 2.44 L (4.30-5.90) m/uL Hgb 7.4 L (13.0-17.5) gm/dL Hct 23.3 L (39.0-53.0) % Neutrophils # 21.7 H (1.3-7.7) k/uL Lymphocytes # 0.4 L (1.0-4.8) k/uL Sodium 130 L (137-145) mmol/L BUN 117 H* (9-20) mg/dL Creatinine 2.11 H (0.66-1.25) mg/dL Glucose 106 H (74-99) mg/dL POC Glucose (mg/dL) 119 H (70-110) mg/dL 08/11/24 08/11/24 08/11/24 Range/Units 05:24 06:49 10:20 WBC (3.8-10.6) k/uL RBC (4.30-5.90) m/uL Hgb (13.0-17.5) gm/dL Hct (39.0-53.0) % Neutrophils # (1.3-7.7) k/uL Lymphocytes # (1.0-4.8) k/uL Sodium (137-145) mmol/L BUN (9-20) mg/dL Creatinine (0.66-1.25) mg/dL Glucose (74-99) mg/dL POC Glucose (mg/dL) 133 H 196 H 181 H (70-110) mg/dL 08/11/24 Range/Units 12:48 WBC (3.8-10.6) k/uL RBC (4.30-5.90) m/uL Hgb (13.0-17.5) gm/dL Hct (39.0-53.0) % Neutrophils # (1.3-7.7) k/uL Lymphocytes # (1.0-4.8) k/uL Sodium (137-145) mmol/L BUN (9-20) mg/dL Creatinine (0.66-1.25) mg/dL Glucose (74-99) mg/dL POC Glucose (mg/dL) 133 H (70-110) mg/dL
[2024-08-11 15:28] LABS: Glucose,Whole Blood 124 mg/dL (70-110)
--- NOTE | 2024-08-11 16:21 | P.PN ---
Subjective Progress Note Date: 08/11/24 Principal diagnosis: Reason for follow-up is pneumonia Patient is a 64-year-old male with a past medical history significant for diabetes mellitus hypertension hyperlipidemia pneumonia atrial fibrillation currently everyday smoker presenting to the hospital for evaluation of increasing shortness of breath patient has been diagnosed with multifocal pneumonia prompting this consultation. On today's evaluation that is 08/11/2024, Patient is afebrile this morning patie nt is on high flow nasal cannula oxygen denies any worsening shortness of breath or cough no chest pain no abdominal pain or diarrhea. Patient white count is 22.8, platelets 2.11 blood culture negative sputum is pending Objective - Vital Signs Vital signs: Vital Signs Temp 98.9 F 08/11/24 08:00 Pulse 61 08/11/24 16:16 Resp 24 08/11/24 15:00 BP 99/45 08/11/24 15:00 Pulse Ox 87 L 08/11/24 13:00 FiO2 50 08/11/24 08:00 Intake & Output 08/10/24 08/11/24 08/11/24 18:59 06:59 18:59 Intake Total 775.142 4940.574 113.530 Output Total 1100 750 750 Balance -665.717 592.574 -636.470 Weight 101.8 kg Intake: IV 190 210 80 .9 90 110 80 Cefepime 2 gm In Sodium 100 100 Chloride 0.9% 100 ml @ 25 mls/hr IVPB Q12H [facility] Rx# :[id number] Intake, IV Titration 244.283 72.574 33.530 Amount Insulin Regular 100 unit 44.283 72.574 33.530 In Sodium Chloride 0.9% 100 ml @ Titrate IV .Q0M [facility] Rx#:[id number] Sodium Chloride 0.45% 1, 200 000 ml @ 50 mls/hr IV . Q20H [facility] Rx#:[id number] Oral 1060 Output: Urine 1100 750 750 Other: Voiding Method External Catheter External Catheter External Catheter - Exam GENERAL DESCRIPTION: An elderly male lying in bed in no distress RESPIRATORY SYSTEM: Unlabored breathing , coarse breath sounds bilaterally HEART: S1 S2 regular rate and rhythm , ABDOMEN: Soft , no tenderness EXTREMITIES: No edema feet - Labs CBC & Chem 7: 08/11/24 05:19 08/11/24 05:19 Labs: Abnormal Lab Results - Last 24 Hours (Table) 08/10/24 08/10/24 08/10/24 Range/Units 17:06 18:08 19:00 WBC (3.8-10.6) k/uL RBC (4.30-5.90) m/uL Hgb (13.0-17.5) gm/dL Hct (39.0-53.0) % Neutrophils # (1.3-7.7) k/uL Lymphocytes # (1.0-4.8) k/uL Sodium (137-145) mmol/L BUN (9-20) mg/dL Creatinine (0.66-1.25) mg/dL Glucose (74-99) mg/dL POC Glucose (mg/dL) 121 H 135 H 185 H (70-110) mg/dL 08/10/24 08/10/24 08/10/24 Range/Units 20:11 21:52 22:58 WBC (3.8-10.6) k/uL RBC (4.30-5.90) m/uL Hgb (13.0-17.5) gm/dL Hct (39.0-53.0) % Neutrophils # (1.3-7.7) k/uL Lymphocytes # (1.0-4.8) k/uL Sodium (137-145) mmol/L BUN (9-20) mg/dL Creatinine (0.66-1.25) mg/dL Glucose (74-99) mg/dL POC Glucose (mg/dL) 230 H 285 H 298 H (70-110) mg/dL 08/11/24 08/11/24 08/11/24 Range/Units 00:19 01:46 03:06 WBC (3.8-10.6) k/uL RBC (4.30-5.90) m/uL Hgb (13.0-17.5) gm/dL Hct (39.0-53.0) % Neutrophils # (1.3-7.7) k/uL Lymphocytes # (1.0-4.8) k/uL Sodium (137-145) mmol/L BUN (9-20) mg/dL Creatinine (0.66-1.25) mg/dL Glucose (74-99) mg/dL POC Glucose (mg/dL) 283 H 216 H 197 H (70-110) mg/dL 08/11/24 08/11/24 08/11/24 Range/Units 04:18 05:19 05:19 WBC 22.8 H (3.8-10.6) k/uL RBC 2.44 L (4.30-5.90) m/uL Hgb 7.4 L (13.0-17.5) gm/dL Hct 23.3 L (39.0-53.0) % Neutrophils # 21.7 H (1.3-7.7) k/uL Lymphocytes # 0.4 L (1.0-4.8) k/uL Sodium 130 L (137-145) mmol/L BUN 117 H* (9-20) mg/dL Creatinine 2.11 H (0.66-1.25) mg/dL Glucose 106 H (74-99) mg/dL POC Glucose (mg/dL) 119 H (70-110) mg/dL 08/11/24 08/11/24 08/11/24 Range/Units 05:24 06:49 10:20 WBC (3.8-10.6) k/uL RBC (4.30-5.90) m/uL Hgb (13.0-17.5) gm/dL Hct (39.0-53.0) % Neutrophils # (1.3-7.7) k/uL Lymphocytes # (1.0-4.8) k/uL Sodium (137-145) mmol/L BUN (9-20) mg/dL Creatinine (0.66-1.25) mg/dL Glucose (74-99) mg/dL POC Glucose (mg/dL) 133 H 196 H 181 H (70-110) mg/dL 08/11/24 08/11/24 Range/Units 12:48 15:26 WBC (3.8-10.6) k/uL RBC (4.30-5.90) m/uL Hgb (13.0-17.5) gm/dL Hct (39.0-53.0) % Neutrophils # (1.3-7.7) k/uL Lymphocytes # (1.0-4.8) k/uL Sodium (137-145) mmol/L BUN (9-20) mg/dL Creatinine (0.66-1.25) mg/dL Glucose (74-99) mg/dL POC Glucose (mg/dL) 133 H 124 H (70-110) mg/dL Assessment and Plan (1) Leukocytosis Current Visit: Yes Status: Acute Code(s): D72.829 - ELEVATED WHITE BLOOD CELL COUNT, UNSPECIFIED SNOMED Code(s): 469894470 (2) Bilateral pneumonia Current Visit: Yes Status: Acute Code(s): J18.9 - PNEUMONIA, UNSPECIFIED ORGANISM SNOMED Code(s): 659942027 Plan: 1patient presented hospital with increasing shortness of breath and chest pain which is likely multifactorial in this patient who did have evidence of PE on the CT there is also evidence of multifocal pneumonia with elevated white count and recently acute influenza A will need to cover for resistant gram-positive as well as gram-negative pathogen for post influenza pneumonia 2-patient will bring up sputum and sputum culture has been sent results will be followed serologies currently pending 3-patient is currently being treated cefepime and itraconazole, elevated white count more likely steroid related will monitor closely Dictation was produced using [employer] dictation software. please excuse any grammatical, word or spelling errors. Time with Patient: Less than 30
[2024-08-11 16:39] LABS: Glucose,Whole Blood 128 mg/dL (70-110)
--- NOTE | 2024-08-11 16:40 | P.PN ---
Subjective Patient is seen for follow-up for acute kidney injury. Currently maintained on Lasix Respiratory status seems to have improved although patient continues to require BiPAP on and off. Serum creatinine at 2.1 today. BUN disproportionately elevated at 117. Patient is maintained on steroids. 24-hour urine output at 1850 mL Objective - Vital Signs Vital signs: Vital Signs Temp 98.9 F 08/11/24 08:00 Pulse 65 08/11/24 16:26 Resp 24 08/11/24 15:00 BP 99/45 08/11/24 15:00 Pulse Ox 87 L 08/11/24 13:00 FiO2 40 08/11/24 16:20 Intake & Output 08/10/24 08/11/24 08/11/24 18:59 06:59 18:59 Intake Total 524.343 1633.574 113.530 Output Total 1100 750 750 Balance -665.717 592.574 -636.470 Weight 101.8 kg Intake: IV 190 210 80 .9 90 110 80 Cefepime 2 gm In Sodium 100 100 Chloride 0.9% 100 ml @ 25 mls/hr IVPB Q12H [facility] Rx# :[id number] Intake, IV Titration 244.283 72.574 33.530 Amount Insulin Regular 100 unit 44.283 72.574 33.530 In Sodium Chloride 0.9% 100 ml @ Titrate IV .Q0M [facility] Rx#:[id number] Sodium Chloride 0.45% 1, 200 000 ml @ 50 mls/hr IV . Q20H [facility] Rx#:[id number] Oral 1060 Output: Urine 1100 750 750 Other: Voiding Method External Catheter External Catheter External Catheter - Exam Patient is awake, comfortable Maintained on BiPAP Examination of the heart S1 and S2 Examination of the lungs decreased breath sounds at the bases occasional wheezing heard bilaterally Abdomen is soft nontender Examination of lower extremities shows edema 1+ bilaterally [employer] exam grossly intact - Labs CBC & Chem 7: 08/11/24 05:19 08/11/24 05:19 Labs: Abnormal Lab Results - Last 24 Hours (Table) 08/10/24 08/10/24 08/10/24 Range/Units 17:06 18:08 19:00 WBC (3.8-10.6) k/uL RBC (4.30-5.90) m/uL Hgb (13.0-17.5) gm/dL Hct (39.0-53.0) % Neutrophils # (1.3-7.7) k/uL Lymphocytes # (1.0-4.8) k/uL Sodium (137-145) mmol/L BUN (9-20) mg/dL Creatinine (0.66-1.25) mg/dL Glucose (74-99) mg/dL POC Glucose (mg/dL) 121 H 135 H 185 H (70-110) mg/dL 08/10/24 08/10/24 08/10/24 Range/Units 20:11 21:52 22:58 WBC (3.8-10.6) k/uL RBC (4.30-5.90) m/uL Hgb (13.0-17.5) gm/dL Hct (39.0-53.0) % Neutrophils # (1.3-7.7) k/uL Lymphocytes # (1.0-4.8) k/uL Sodium (137-145) mmol/L BUN (9-20) mg/dL Creatinine (0.66-1.25) mg/dL Glucose (74-99) mg/dL POC Glucose (mg/dL) 230 H 285 H 298 H (70-110) mg/dL 08/11/24 08/11/24 08/11/24 Range/Units 00:19 01:46 03:06 WBC (3.8-10.6) k/uL RBC (4.30-5.90) m/uL Hgb (13.0-17.5) gm/dL Hct (39.0-53.0) % Neutrophils # (1.3-7.7) k/uL Lymphocytes # (1.0-4.8) k/uL Sodium (137-145) mmol/L BUN (9-20) mg/dL Creatinine (0.66-1.25) mg/dL Glucose (74-99) mg/dL POC Glucose (mg/dL) 283 H 216 H 197 H (70-110) mg/dL 08/11/24 08/11/24 08/11/24 Range/Units 04:18 05:19 05:19 WBC 22.8 H (3.8-10.6) k/uL RBC 2.44 L (4.30-5.90) m/uL Hgb 7.4 L (13.0-17.5) gm/dL Hct 23.3 L (39.0-53.0) % Neutrophils # 21.7 H (1.3-7.7) k/uL Lymphocytes # 0.4 L (1.0-4.8) k/uL Sodium 130 L (137-145) mmol/L BUN 117 H* (9-20) mg/dL Creatinine 2.11 H (0.66-1.25) mg/dL Glucose 106 H (74-99) mg/dL POC Glucose (mg/dL) 119 H (70-110) mg/dL 08/11/24 08/11/24 08/11/24 Range/Units 05:24 06:49 10:20 WBC (3.8-10.6) k/uL RBC (4.30-5.90) m/uL Hgb (13.0-17.5) gm/dL Hct (39.0-53.0) % Neutrophils # (1.3-7.7) k/uL Lymphocytes # (1.0-4.8) k/uL Sodium (137-145) mmol/L BUN (9-20) mg/dL Creatinine (0.66-1.25) mg/dL Glucose (74-99) mg/dL POC Glucose (mg/dL) 133 H 196 H 181 H (70-110) mg/dL 08/11/24 08/11/24 Range/Units 12:48 15:26 WBC (3.8-10.6) k/uL RBC (4.30-5.90) m/uL Hgb (13.0-17.5) gm/dL Hct (39.0-53.0) % Neutrophils # (1.3-7.7) k/uL Lymphocytes # (1.0-4.8) k/uL Sodium (137-145) mmol/L BUN (9-20) mg/dL Creatinine (0.66-1.25) mg/dL Glucose (74-99) mg/dL POC Glucose (mg/dL) 133 H 124 H (70-110) mg/dL Assessment and Plan Assessment: 1. Acute renal injury, ATN associated with underlying infection and borderline low blood pressures in the setting of use of SAGAR inhibitors. May continue with IV diuretics. Ultrasound shows no evidence of obstruction. UA is benign. BUN disproportionately elevated secondary to steroids. 2. Acute hypoxic respiratory failure secondary to pneumonia and volume overload 3. Volume overload 4. CHF with preserved ejection fraction of 55 to 60% noted this admission 5. Hypervolemic hyponatremia. Patient was also maintained on hypotonic IV flui ds which contributed to the hyponatremia, now improved 6. Influenza A infection status post Tamiflu during previous hospitalization about 3 weeks ago Plan: Continue with Lasix Repeat labs in a.m. Continue off of SAGAR inhibitors Continue with Aldactone Monitor potassium Continue to avoid nephrotoxic agents
[2024-08-11 17:29] LABS: Glucose,Whole Blood 142 mg/dL (70-110)
[2024-08-11 18:47] LABS: Glucose,Whole Blood 157 mg/dL (70-110)
[2024-08-11 20:18] LABS: Glucose,Whole Blood 227 mg/dL (70-110)
--- NOTE | 2024-08-11 21:33 | P.PN ---
Progress Note - Text Progress Note Date: 08/11/24 Patient is a 64-year-old male with a PMH of atrial fibrillation on Eliquis, COPD on 2 L home oxygen, [id number] diabetes mellitus, hyperlipidemia, hypertension presenting with shortness of breath. Patient was previously admitted here for acute hypoxic respiratory failure secondary to influenza pneumonia and was discharged on 2 L of home oxygen. Patient states he has been feeling short of breath while at rest. He reports that since being discharged the home oxygen has not been sufficient. He states that he had to keep increasing his oxygen. Patient says shortness of breath is slightly relieved when he is laying down. Denies any orthopnea or PND. Patient endorses a nonpr oductive cough that is chronic in nature, but says it has been getting worse. Patient admits to having fever, chills. Patient also admits to having non- radiating, pressure-like chest pain over the last few days. Chest pain is not related to exertion and he had no alleviating or aggravating factors. Patient denies any headache, vision changes, nausea, vomiting, diarrhea, abdominal pain, urinary symptoms. EKG independently interpreted displaying sinus rhythm with left bundle branch block that has been seen on prior EKG, rate 65 bpm, QTc 451 ms CXR independently interpreted displaying bilateral multifocal airspace opacities Chest CTA displaying acute segmental and subsegmental pulmonary emboli within the right and middle lower lobes, no saddle embolus, no RV strain, chronic interstitial loading disease Venous Doppler B/L LE displaying no evidence of acute DVT Troponin 0.049, 0.055, proBNP 8810, D-dimer 4.87, WBC 22.6, Hgb 11.0, HCT 35.2, MCV 93.7, platelet 322, PT 11.8, INR 1.1, APTT 28, sodium 133, potassium 4.2, CO2 24, BUN 30, creatinine 1.27, glucose 135 VBG pH 7.52, pCO2 32 T98.2 F, HI 80, RR 26, BP 163/77, O2 sat 90% on BiPAP with FiO2 of 100% August 05: Overflow the ER. Up in the bed. Short of breath. Patient was on BiPAP overnight. This morning on 15 L high flow nasal cannula. Decreased appetite. Has got a cough. Some wheezing. Some sputum production. Decreased appetite. Patient is on IV heparin. Also on IV cefepime. Pulmonary following August 06: Patient did confirm that because Eliquis is very expensive patient was not taking it properly did and take it sparingly at home. Explains patient's PE. Started on Eliquis today by cardiology. IV heparin discontinued. Getting easily short of breath. Requiring BiPAP.. Some cough. Oral intake fair. On IV cefepime and vancomycin. ID following. Also on IV Lasix. Due to worsening renal function will DC vancomycin August 07: Saw this afternoon. On BiPAP. 60%. Ensure ordered. All blood work ordered by pulmonary including fungal. Patient currently on IV cefepime and Levaquin. IV Solu-Medrol. Remain short of breath. Tired. Being followed by pulmonary and ID. Chest x-ray film personally reviewed by me-showing pulm edema bilateral infiltrates especially at the bases. Renal ultrasound nonspecific. UA showing protein 1+. August 08: Remain short of breath. Sitting up in bed. Not able to come off the BiPAP. Remains on IV cefepime. Accu-Cheks running high. Put on insulin drip. On IV Solu-Medrol. Oral intake fair. August 09: Patient remains short of breath. Unable to get off BiPAP. FiO2 increased to 70%. 04/30. Per Dr. Goode: Patient be moved to the ICU. Poor oral intake. Remains on insulin drip. IV Solu-Medrol. Eliquis. IV cefepime and Levaquin. Tired. Sitting up in bed leaning forward short of breath. Chest x-ray film personally reviewed by me: Scattered bilateral infiltrates August 10: ICU. Remains on BiPAP. Decreased oral intake. Sitting up. Short of breath. On IV cefepime. Insulin drip. IV Solu-Medrol. DuoNeb Q4. Rather tired. Also yesterday evening at epistaxis. Nasal packing. August 11: ICU. Mostly been on BiPAP. High flow nasal cannula. Decreased oral intake. Sitting up leaning forward. Remains on IV cefepime or Levaquin insulin drip. A bit tired. Patient has very poor oral intake. Per salesperson wigs patient will IV Lasix. Note worsening renal function-cut back to Lasix once a day. Given blood pressure running lower side. DC Aldactone and DC amlodipine. Active Medications Albuterol/Ipratropium (Ipratropium-Albuterol 3 Ml Neb) 3 ml INHALATION RT-QID PRN PRN Reason: Shortness Of Breath Or Wheezing Albuterol/Ipratropium (Ipratropium-Albuterol 3 Ml Neb) 3 ml INHALATION RT-Q4H [facility] Last Admin: 08/11/24 20:23 Dose: 3 ml Alprazolam (Alprazolam 0.5 Mg Tab) 0.5 mg PO TID PRN PRN Reason: Anxiety Last Admin: 08/10/24 21:06 Dose: 0.5 mg Amlodipine Besylate (Amlodipine 5 Mg Tab) 5 mg PO DAILY [facility] Last Admin: 08/11/24 10:44 Dose: 5 mg Aspirin (Aspirin 81 Mg) 81 mg PO DAILY [facility] Last Admin: 08/11/24 10:44 Dose: 81 mg Budesonide (Budesonide 1 Mg/2 Ml Nebu) 1 mg INHALATION RT-BID [facility] Last Admin: 08/11/24 20:23 Dose: 1 mg Dextrose/Water (Dextrose 50% Syringe 50 Ml) 25 ml IVP PER PROTOCOL PRN; Protocol PRN Reason: Hypoglycemia Dextrose/Water (Dextrose 50% Syringe 50 Ml) 50 ml IVP PER PROTOCOL PRN; Protocol PRN Reason: Hypoglycemia Formoterol Fumarate (Formoterol Fumarate 20 Mcg/2 Ml Nebu) 20 mcg INHALATION RT-BID [facility] Last Admin: 08/11/24 20:23 Dose: 20 mcg Furosemide (Furosemide 10 Mg/Ml 4 Ml Vial) 40 mg IV Q12HR [facility] Last Admin: 08/11/24 10:45 Dose: 40 mg Cefepime HCl 2 gm/ Sodium (Chloride) 100 mls @ 25 mls/hr IVPB Q12H [facility]; Protocol Last Admin: 08/11/24 10:45 Dose: 25 mls/hr Insulin Human Regular 100 unit (/ Sodium Chloride) 100 mls @ 0 mls/hr IV .Q0M [facility]; Protocol Last Titration: 08/11/24 20:25 Dose: 3.13 units/hr, 3.13 mls/hr Itraconazole (Itraconazole 100 Mg Cap) 200 mg PO BID [facility]; Protocol Last Admin: 08/11/24 11:11 Dose: 200 mg Levofloxacin (Levofloxacin 750 Mg Tab) 750 mg PO Q48H [facility]; Protocol Last Admin: 08/11/24 17:04 Dose: 750 mg Lorazepam (Lorazepam 1 Mg Tab) 1 mg PO HS PRN PRN Reason: Anxiety Last Admin: 08/11/24 11:36 Dose: 1 mg Methylprednisolone Sodium Succinate (Methylprednisolone Sod Succi 125 Mg/2 Ml Vial) 60 mg IV Q8H [facility] Last Admin: 08/11/24 17:31 Dose: 60 mg Metoprolol Succinate (Metoprolol Succinate (Er) 25 Mg Tab.Er.24h) 25 mg PO DAILY [facility] Last Admin: 08/11/24 10:44 Dose: 25 mg Morphine Sulfate (Morphine Sulfate 4 Mg/Ml Syringe) 4 mg IV Q4HR PRN PRN Reason: Severe Pain (Scale 7 to 10) Naloxone HCl (Naloxone 0.4 Mg/Ml 1 Ml Vial) 0.2 mg IV Q2M PRN PRN Reason: Opioid Reversal Ondansetron HCl (Ondansetron 4 Mg/2 Ml Vial) 4 mg IVP Q8HR PRN PRN Reason: Nausea And Vomiting Last Admin: 08/07/24 14:52 Dose: 4 mg Oxymetazoline HCl (Oxymetazoline 0.05% Nasl [place] 1 [place] Bottle) 2 spray NASAL BID [facility] Last Admin: 08/11/24 10:47 Dose: 2 spray Pantoprazole Sodium (Pantoprazole 40 Mg/10 Ml Vial) 40 mg IV DAILY [facility] Last Admin: 08/11/24 10:45 Dose: 40 mg Potassium Chloride (Potassium Chloride Er 20 Meq Tab.Er) 20 meq PO DAILY [facility] Last Admin: 08/11/24 10:44 Dose: 20 meq Sodium Chloride (Sodium Chloride 0.65% Nasal [place] 44 Ml Btl) 2 spray NASAL QID PRN PRN Reason: Dry Nasal Passages Spironolactone (Spironolactone 25 Mg Tab) 25 mg PO DAILY [facility] Last Admin: 08/11/24 10:44 Dose: 25 mg Social history: Tobacco: Current [id number] smoker Alcohol: Occasional alcohol use Recreational drugs: Marijuana Travel: No recent travel On examination: VITAL SIGNS: Afebrile, 78, 25, 1.4 x 49, 92% on high flow nasal cannula GENERAL APPEARANCE: Sitting up in bed, leaning forward, short of breath HEENT: Normal external appearance of nose and ear. Oral cavity normal EYES: Pupils equal. Conjunctiva normal. NECK: JVD unable to assess. Mass not palpable. RESPIRATORY: Respiratory effort increased, not able to speak in full sentences. Accessory muscles working. Lungs diminished breath sounds some scattered crackles prolonged expiration. CARDIOVASCULAR: First and second sounds normal. No edema. ABDOMEN: Soft. Liver and spleen not palpable. No tenderness. No mass palpable. PSYCHIATRY: Tired. Mood and affect tired INVESTIGATIONS, reviewed in the clinical context: August 11: White count 22.8 hemoglobin 7.4 platelets 200 sodium 130 potassium 4.2 BUN 117 creatinine 2.11 August 10: White count 21.7 hemoglobin 7.9 platelets 201 sodium 128 potassium 4.5 BUN 95 creatinine 1.97 16: White count 21.1 hemoglobin 9.1 platelets 245 potassium 4.2 BUN 68 creatinine 1.73 August 08: White count 8.2 hemoglobin 9.2 platelets 232 ABG: pH 7.3 pCO2 42 pO2 80 sodium 133 potassium 3.6 creatinine 1.69. Accu-Cheks high August 07: White count 20.8 hemoglobin 9.2 platelets 265 sodium 134 BUN 44 creatinine 1.54. Chest x-ray: Pulm edema/bilateral infiltrates August 06: Sodium 132 potassium 3.4 BUN 35 creatinine 1.51 August 05: White count 7.2 hemoglobin 10.3 platelets 242 sodium 136 potassium 3.8 BUN 28 creatinine 1.37 Troponin I: 0.049, 0.055, 0.051 Chest x-ray film personally reviewed by me-bilateral infiltrates. Effusion/pulm edema cardiomegaly. Venous Doppler: No DVT Chest CTA: Acute segmental and subsegmental pulm embolism within the right middle and right lower lobes. No RV strain. Chronic interstitial lung disease. Previous labs: Creatinine 1.63 in October 2022 Assessment/Plan: #. Acute pulmonary embolism, non-massive [segmental and subsegmental within the right middle and lower lobes. No RV strain IV heparin, switched over to Eliquis #. Sepsis likely secondary to -viral pneumonia. Secondary bacterial component probable IV cefepime. And Levaquin-also has been on itraconazole started on the August 07 ID and pulmonary following #. Acute hypoxic respiratory failure, secondary to above: Not improving Remains on BiPAP, and symptoms high flow nasal cannula #. Acute COPD exacerbation, in a prior smoker: Not improving DuoNeb Q4. IV Solu-Medrol 60 mg q8. Nebulized Pulmicort #. Acute on chronic heart failure with reduced ejection fraction (EF 45 to 50%): Slow to respond IV Lasix 40 mg every 12. Aldactone. #. Chronic hypoxic respiratory failure from underlying COPD, 2 L home O2 -Acute kidney injury, likely ATN multifactorial Admission creatinine 1.27. Currently 2.11 #. Dya-gplqbiy-wqogsdqcq type 2 diabetes, uncontrolled with hyperglycemia secondary steroids: Not improving Insulin subcu sliding scale. Stop Levemir. Currently on insulin drip y Accu-Cheks ACHS - chronic kidney disease stage III from nephrosclerosis and diabetic nephropathy [creatinine 1.63 in October 2022] Renal ultrasound.: Suboptimal study. No corticomedullary comment. UA protein 1+ -Recent influenza type A #. Essential hypertension- Amlodipine. Zestril. #. Hyperlipidemia Lipitor -Full code Remains critically ill. ICU. Given worsening renal function will DC Aldactone, cut back Lasix to once a day and as blood pressure running lower side also DC amlodipine Past Medical History Past Medical History: Atrial Fibrillation, Diabetes Mellitus, Hyperlipidemia, Hypertension, Pneumonia, Supraventricular Tachycardia (SVT) Additional Past Medical History / Comment(s): a fib, causes shortness of breath, can feel irregular heartbeat History of Any Multi-Drug Resistant Organisms: None Reported Past Surgical History: Cholecystectomy, Heart Catheterization Additional Past Surgical History / Comment(s): Colonoscopy Past Anesthesia/Blood Transfusion Reactions: No Reported Reaction Past Psychological History: No Psychological Hx Reported Smoking Status: Current every day smoker Past Alcohol Use History: Occasional Past Drug Use History: Marijuana
[2024-08-11 21:59] LABS: Glucose,Whole Blood 303 mg/dL (70-110)
[2024-08-11 23:17] LABS: Glucose,Whole Blood 269 mg/dL (70-110)
[2024-08-12 01:14] LABS: Glucose,Whole Blood 213 mg/dL (70-110)
[2024-08-12 05:04] LABS: Glucose,Whole Blood 185 mg/dL (70-110)
[2024-08-12 05:47] LABS: Basophils % (A) 0 %; Eosinophils % (A) 0 %; HCT 22.3 % (39.0-53.0); Lymphocytes # (A) 0.2 k/uL (1.0-4.8); Lymphocytes % (A) 1 %; MCH 29.7 pg (25.0-35.0); MCHC 31.4 g/dL (31.0-37.0); MCV 94.6 fL (80.0-100.0); Monocytes # (A) 0.4 k/uL (0-1.0); Monocytes % (A) 2 %; Neutrophils # (A) 17.5 k/uL (1.3-7.7); Neutrophils % (A) 96 %; Platelet Count 182 k/uL (150-450); RBC 2.36 m/uL (4.30-5.90); RDW 13.2 % (11.5-15.5); WBC 18.1 k/uL (3.8-10.6)
[2024-08-12 05:54] LABS: African American GFR (CKD) 33 (>60 ml/min/1.73 sqM); Anion Gap 9 mmol/L; Calcium 9.3 mg/dL (8.4-10.2); Carbon Dioxide 22 mmol/L (22-30); Chloride 101 mmol/L (98-107); Glucose 154 mg/dL (74-99); Non-African American GFR(CKD) 29 (>60 ml/min/1.73 sqM); Potassium 4.6 mmol/L (3.5-5.1); Sodium 132 mmol/L (137-145)
[2024-08-12] MEDS: PANTOPRAZOLE 40 MG TABLET PO SCH (06:37)
[2024-08-12 06:39] LABS: Blood Urea Nitrogen 125 mg/dL (9-20)
[2024-08-12 06:42] LABS: Glucose,Whole Blood 207 mg/dL (70-110)
--- NOTE | 2024-08-12 07:41 | XR ---
EXAMINATION TYPE: XR chest 1V portable DATE OF EXAM: 08/12/2024 5:27 AM COMPARISON: Chest radiographs from 08/11/2024 CLINICAL INDICATION: Male, 64 years old with history of CHF; TECHNIQUE: XR chest 1V portable Frontal view of the chest. FINDINGS: Lungs/Pleura: Low lung volumes are present. There is no evidence of pleural effusion, focal consolida tion, or pneumothorax. Pulmonary vascularity: Pulmonary vascular congestion. Heart/mediastinum: Cardiomediastinal silhouette is enlarged. Musculoskeletal: No acute osseous pathology. IMPRESSION: Cardiomegaly and mild pulmonary vascular congestion. Correlate with BNP for congestive heart failure. [facility], , 08/12/2024 7:39 AM
[2024-08-12 08:22] LABS: Glucose,Whole Blood 188 mg/dL (70-110)
[2024-08-12 09:49] LABS: Glucose,Whole Blood 156 mg/dL (70-110)
--- NOTE | 2024-08-12 10:39 | P.PN ---
Subjective Patient is seen for follow-up for acute kidney injury. Currently maintained on Lasix Respiratory status seems to have improved although patient continues to require BiPAP on and off. Serum creatinine at 2.28 today. BUN disproportionately elevated at 125. Patient is maintained on steroids. 24-hour urine output at 1570 mL Objective - Vital Signs Vital signs: Vital Signs Temp 96.8 F L 08/12/24 04:00 Pulse 70 08/12/24 08:25 Resp 16 08/12/24 07:58 BP 105/55 08/12/24 07:00 Pulse Ox 97 08/12/24 07:00 FiO2 35 08/12/24 08:07 Intake & Output 08/11/24 08/12/24 08/12/24 18:59 06:59 18:59 Intake Total 675.837 2925.856 10 Output Total 970 600 0 Balance -826.470 539.856 10 Weight 101.8 kg 103.7 kg Intake: IV 110 180 10 .9 110 80 10 Cefepime 2 gm In Sodium 100 Chloride 0.9% 100 ml @ 25 mls/hr IVPB Q12H [facility] Rx# :[id number] Intake, IV Titration 33.530 49.856 Amount Insulin Regular 100 unit 33.530 49.856 In Sodium Chloride 0.9% 100 ml @ Titrate IV .Q0M [facility] Rx#:[id number] Oral 910 Output: Urine 970 600 0 Other: Voiding Method External Catheter External Catheter # Voids 0 - Exam Patient is awake, comfortable Maintained on BiPAP Examination of the heart S1 and S2 Examination of the lungs decreased breath sounds at the bases occasional wheezing heard bilaterally Abdomen is soft nontender Examination of lower extremities shows edema 1+ bilaterally 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 BI 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 exam grossly intact - Labs CBC & Chem 7: 08/12/24 05:15 08/12/24 05:15 Labs: Abnormal Lab Results - Last 24 Hours (Table) 08/11/24 08/11/24 08/11/24 Range/Units 12:48 15:26 16:37 WBC (3.8-10.6) k/uL RBC (4.30-5.90) m/uL Hgb (13.0-17.5) gm/dL Hct (39.0-53.0) % Neutrophils # (1.3-7.7) k/uL Lymphocytes # (1.0-4.8) k/uL Sodium (137-145) mmol/L BUN (9-20) mg/dL Creatinine (0.66-1.25) mg/dL Glucose (74-99) mg/dL POC Glucose (mg/dL) 133 H 124 H 128 H (70-110) mg/dL 08/11/24 08/11/24 08/11/24 Range/Units 17:28 18:46 20:16 WBC (3.8-10.6) k/uL RBC (4.30-5.90) m/uL Hgb (13.0-17.5) gm/dL Hct (39.0-53.0) % Neutrophils # (1.3-7.7) k/uL Lymphocytes # (1.0-4.8) k/uL Sodium (137-145) mmol/L BUN (9-20) mg/dL Creatinine (0.66-1.25) mg/dL Glucose (74-99) mg/dL POC Glucose (mg/dL) 142 H 157 H 227 H (70-110) mg/dL 08/11/24 08/11/24 08/12/24 Range/Units 21:58 23:16 01:12 WBC (3.8-10.6) k/uL RBC (4.30-5.90) m/uL Hgb (13.0-17.5) gm/dL Hct (39.0-53.0) % Neutrophils # (1.3-7.7) k/uL Lymphocytes # (1.0-4.8) k/uL Sodium (137-145) mmol/L BUN (9-20) mg/dL Creatinine (0.66-1.25) mg/dL Glucose (74-99) mg/dL POC Glucose (mg/dL) 303 H 269 H 213 H (70-110) mg/dL 08/12/24 08/12/24 08/12/24 Range/Units 05:02 05:15 05:15 WBC 18.1 H (3.8-10.6) k/uL RBC 2.36 L (4.30-5.90) m/uL Hgb 7.0 L (13.0-17.5) gm/dL Hct 22.3 L (39.0-53.0) % Neutrophils # 17.5 H (1.3-7.7) k/uL Lymphocytes # 0.2 L (1.0-4.8) k/uL Sodium 132 L (137-145) mmol/L BUN 125 H* (9-20) mg/dL Creatinine 2.28 H (0.66-1.25) mg/dL Glucose 154 H (74-99) mg/dL POC Glucose (mg/dL) 185 H (70-110) mg/dL 08/12/24 08/12/24 08/12/24 Range/Units 06:41 08:20 09:48 WBC (3.8-10.6) k/uL RBC (4.30-5.90) m/uL Hgb (13.0-17.5) gm/dL Hct (39.0-53.0) % Neutrophils # (1.3-7.7) k/uL Lymphocytes # (1.0-4.8) k/uL Sodium (137-145) mmol/L BUN (9-20) mg/dL Creatinine (0.66-1.25) mg/dL Glucose (74-99) mg/dL POC Glucose (mg/dL) 207 H 188 H 156 H (70-110) mg/dL Assessment and Plan Assessment: 1. Acute renal injury, ATN associated with underlying infection and borderline low blood pressures in the setting of use of SAGAR inhibitors. May continue with IV diuretics. Ultrasound shows no evidence of obstruction. UA is benign. BUN disproportionately elevated secondary to steroids. 2. Acute hypoxic respiratory failure secondary to pneumonia and volume overload 3. Volume overload 4. CHF with preserved ejection fraction of 55 to 60% noted this admission 5. Hypervolemic hyponatremia. Patient was also maintained on hypotonic IV fluids which contributed to the hyponatremia, now improved 6. Influenza A infection status post Tamiflu during previous hospitalization about 4 weeks ago Plan: Continue with Lasix. BUN is disproportionately elevated from steroids Repeat labs in a.m. Continue off of SAGAR inhibitors Continue with Aldactone Monitor potassium Continue to avoid nephrotoxic agents
[2024-08-12 12:35] LABS: Glucose,Whole Blood 101 mg/dL (70-110)
--- NOTE | 2024-08-12 13:38 | P.PN ---
Subjective Progress Note Date: 08/12/24 Principal diagnosis: Acute on chronic hypoxic respiratory failure, multifactorial Patient is a 64-year-old male with past medical history significant for atrial fibrillation, diabetes mellitus, CKD stage III, hypertension, hyperlipidemia, tobacco smoker. Of note, recently had a prolonged hospitalization 07/19/2024 through 07/31/2024. Treated for combination of influenza A, pneumonia, CHF. Completed course of antibiotics and Tamiflu. At this time, did require noninvasive BiPAP, eventually discharged on home O2. Returns with a chief complaint of shortness of breath progressing over the last 2 to 3 days. Also, reports sudden onset substernal chest pain that developed the night prior and has been persistent. On arrival to the ED, found to be in some respiratory distress, and placed on BiPAP. Workup in the emergency department including a chest x-ray showing multifocal infiltrates concerning for pneumonia or pulmonary edema. D-dimer was elevated in setting CT angio protocol which was positive for segmental and subsegmental right middle lobe and right lower lobe pulmonary emboli. No saddle pulmonary embolus. Pulmonary artery mildly enlarged. Preserved RV to LV ratio. There were diffuse coarse reticular infiltrates, as well as, groundglass lung attenuation, cystic changes, with concerns for interstitial lung disease. Patient does take Eliquis for his history of atrial fibrillation. Does state he has missed some doses lately. CBC: WBC count 22.6, hemoglobin 11, platelets 322. CMP: Sodium 133, potassium 4.2, chloride 101, serum bicarb 24, BUN 30, creatinine 1.27, glucose 135. Lactic 1.5. VBG with a pH of 7.5 and pCO2 of 32. EKG: Sinus rhythm, rate 65 bpm, left bundle branch block, not acute. Elevated serial troponins 0.049 and 0.055 respectively. NT proBNP elevated 8807. Patient is currently being evaluated in the emergency department. He is alert and some moderate respiratory distress. On BiPAP with settings 12/5 and FiO2 60%. Tachypneic, breathing around 40 breaths/min. Endorses progressive worsening difficulty in breathing over last couple days. He has tried to increase his supplemental oxygen at home without any relief. Denies previous history of DVT or PE. Associated nonproductive cough. Denies sputum production or hemoptysis. Substernal nonradiating chest pain persist. Denies any fevers or chills. Denies heart palpitations or syncopal events. Denies swelling in the lower extremities. Heart rhythm is normal sinus on bedside monitor. Blood pressure has been normotensive, did receive 2 L of crystalloid fluid bolus earlier. Not requiring any vasopressors. Normal saline is infusing at 150 mL/h. IV heparin infusing per protocol 08/06/2024, the patient is being seen for a follow-up. The patient is alternating between BiPAP at a pressure of 12/5 with an FiO2 of 60% and 15 L of oxygen by nasal cannula. He is getting slightly anxious and the patient is being provided Xanax accordingly. Fluid balance is -1.1 L over the past 24 hours. Limited echocardiogram was also done and it showed preserved LV function with an EF of around 55 to 60%. Valvular functions could not be accurately assessed as the patient's study was technically difficult study. There was however RV dilatation. Unable to estimate RV pressures. The electrolytes from today showed a creatinine of 1.5 with a BUN of 35. Bicarb is at 21. Sodium is at 132. The patient remains on DuoNeb updrafts. The patient remains on a combination of cefepime and vancomycin. The patient was taken off the IV hep lizzette and the patient was started on anticoagulation with Eliquis. Remains on IV Solu-Medrol 60 mg every 6 hours. Remains on Aldactone. Remains on IV Lasix 40 mg every 12 hours. On today's evaluation of 08/07/2024, the patient is overall condition is essentially unchanged. Continues to be hypoxic, continues to be on BiPAP and the patient remains at a pressure of 12/5 with an FiO2 of 60%. Continues to have crackles in lung base bilaterally. White cell count remains elevated at 20 with a hemoglobin 9.2. Very much BiPAP dependent as the patient desaturates once taken off the BiPAP. BUN is 44 with a platelet of 1.5. Sodium levels at 134 and a potassium level is at 3.4. Remains on DuoNeb updrafts. Remains on IV Lasix 40 mg every 12 hours. Remains on Aldactone. Remains on bronchodilators. Remains on steroids. Empiric antibiotic coverage with IV cefepime. Reviewed the CAT scan again and there is some chronic interstitial changes and the patient has diffuse infiltrates with areas of groundglass. Consider acute interstitial pneumonias. Consider fungal pneumonias. On today's evaluation of 08/08/2024, the patient is feeling slightly better compared to yesterday. The patient is off the BiPAP and the patient is currently on 15 L of oxygen by nasal cannula. Remains on bronchodilators. Remains on IV Solu-Medrol. Remains on IV Lasix. Antibiotic coverage including combination of cefepime, Levaquin orally and itraconazole orally. Fungal antibodies are still pending. Meanwhile, rheumatologic profile showed a negative rheumatoid factor and negative MARISA. Legionella urine antigen is still pending for now. Clinically however, the patient is feeling slightly improved compared to yesterday. His chest x-ray continues to show multifocal airspace disease more so in the right lung. Fluid balance has been negative. The patient's creatinine is currently at 1.6 with a BUN of 54 and a sodium levels at 133. I am going to taper the steroids. The white cell count is 18.2 with a hemoglobin of 9.2. On 08/09/2024, the patient is transferred to the intensive care unit for closer monitoring. As mentioned, the patient developed acute hypoxic respiratory failure with diffuse bilateral pulmonary filtrates discussed earlier. The patient was able to tolerate Airvo, however, overnight, the patient developed epistaxis. Therefore was discontinued the patient was placed back on BiPAP and his current BiPAP is running at a pressure of 12 over 5 cm of water with an FiO2 of 80%. The patient seems to be quite dependent on the BiPAP. Unable to drop the FiO2 any further. Repeat chest x-ray was done and shows stable diffuse bilateral pulm infiltrates which remains essentially unchanged compared to yesterday. Clinically, the patient is awake and alert. He is reported to have some congested cough. No significant sputum production. No chest pain. No hemoptysis. Noted, over the past 48 hours, the patient was diuresed with IV Lasix. Nevertheless, we have not seen any improvement in the patient's oxygenation. The patient was negative fluid balance. His BNP today is at 68 with a creatinine of 1.7. Based on that, I stopped diuretics. Rest of the electrolytes are all within normal limits. White cell count of 21 with a hemoglobin 9.1 and a platelet count of 245. The patient remains on broad- spectrum antibiotics. The patient remains on IV cefepime, itraconazole and Levaquin. Fungal antibodies are still pending for now. MARISA and rheumatoid factor were both negative. Legionella urine antigen was also negative. The patient remains on anticoagulation and I am going to drop the Eliquis dose to 5 mg p.o. twice a day. I am not absolutely convinced that the patient has a pulmonary embolism. I reviewed the CAT scan of the chest and there could be potentially some subsegmental filling defects in the right, however, the overall contrast administration was essentially poor. The patient will be monitored very closely in the intensive care unit. On a separate note, the patient was started on insulin drip for blood sugar control. Patient was seen today on 08/10/2024, remains in the ICU, remains on fluid restrictions for low sodium of 128, he is on BiPAP 12/60%, patient is presenting this time very much similar to his last presentation few weeks ago. I am familiar with this patient, and on his last admission patient responded to treatment with mostly diuretics, and steroids. This time came back with a similar presentation, he is receiving diuretics, but has been on hold for the last 24 hours, and I recommended we go back on Lasix 40 mg IV push every 12 hours, patient is receiving Solu-Medrol at 60 mg IV push every 8 hours, he is also on Levaquin's, cefepime, and he is marginal at best. In addition to this the patient had non-ST elevation myocardial infarction and flu/influenza A back on 08/04. Blood cultures have been negative, patient has leukocytosis with WBC count of 21.7 hemoglobin is 7.9. Creatinine has been slightly rising 1.51 on admission which is about his baseline, today his creatinine is 1.97 with a BUN of 95. Legionella antigen has been negative MARISA screen has been negative rheumatoid factor is negative patient continues to complain of shortness of breath, intermittent cough, and wheezing. Patient was seen today on 08/11/2024, remains in the ICU, remains on BiPAP, patient is down on FiO2 to 50%, so he is on BiPAP 12//50%. Clinically the patient is feeling better breathing easier, remains on empiric antibiotics including cefepime and Levaquin remains on Lasix 40 mg every 12 hours remains on steroids, and today I have noticed probably minimal improvement in his chest x- ray findings. Hence we will continue the same and will make Lasix 40 mg twice daily instead of 40 mg daily. WBC count is 22.8 hemoglobin 7.4 electrolytes are normal BUN is 117 creatinine 2.11 Patient was seen today on 08/12/2024, patient is feeling better today, remains on BiPAP, however he is down to 40%, chest x-ray is showing definite improvement in comparison to previous x-rays of the chest. Patient remains on diuretics r emains on antibiotics and remains on steroids, hence I have no plans to cut down on his diuretics at this point specially with his improvement clinically and improvement noted on the chest x-ray. As a matter fact I was able to discontinue BiPAP, and I placed the patient on a high flow nasal cannula 10 L and he is saturating anywhere between 97 to 99%. Creatinine is noted to be a bit higher today 2.28, his BUN is 125, his WBC count remains elevated at 18.1, hemoglobin is 7. Patient remains quite edematous, and he remains on diuretics in the form of Lasix and Aldactone. Objective - Vital Signs Vital signs: Vital Signs Temp 98.9 F 08/12/24 08:00 Pulse 81 08/12/24 12:10 Resp 20 08/12/24 11:00 BP 111/59 08/12/24 11:00 Pulse Ox 97 08/12/24 11:00 FiO2 35 08/12/24 08:07 Intake & Output 08/11/24 08/12/24 08/12/24 18:59 06:59 18:59 Intake Total 289.809 0780.856 81.625 Output Total 970 600 0 Balance -826.470 539.856 81.625 Weight 101.8 kg 103.7 kg Intake: IV 110 180 50 .9 110 80 50 Cefepime 2 gm In Sodium 100 Chloride 0.9% 100 ml @ 25 mls/hr IVPB Q12H [facility] Rx# :[id number] Intake, IV Titration 33.530 49.856 31.625 Amount Insulin Regular 100 unit 33.530 49.856 31.625 In Sodium Chloride 0.9% 100 ml @ Titrate IV .Q0M [facility] Rx#:[id number] Oral 910 Output: Urine 970 600 0 Other: Voiding Method External Catheter External Catheter External Catheter # Voids 0 - Exam GENERAL EXAM: 64-year-old white male obese , on BiPAP 12//40%, changed to high flow nasal cannula HEAD: Normocephalic and atraumatic EYES: Normal reaction of pupils, equal size. NOSE: Removed nasal packing from his right nostril today. THROAT: No erythema or exudates. NECK: No masses, no JVD. CHEST: No chest wall deformity. LUNGS: Crackles persist bilaterally. CVS: S1 and S2 normal with soft systolic murmur, regular rhythm. No other extra heart sounds ABDOMEN: No hepatosplenomegaly, active bowel sounds, no guarding or rigidity. SKIN: No rashes CENTRAL NERVOUS SYSTEM: Alert oriented x 3 no gross focal deficit EXTREMITIES: 2+ bipedal edema, good pulses bilaterally. - Labs CBC & Chem 7: 08/12/24 05:15 08/12/24 05:15 Labs: Abnormal Lab Results - Last 24 Hours (Table) 08/11/24 08/11/24 08/11/24 Range/Units 15:26 16:37 17:28 WBC (3.8-10.6) k/uL RBC (4.30-5.90) m/uL Hgb (13.0-17.5) gm/dL Hct (39.0-53.0) % Neutrophils # (1.3-7.7) k/uL Lymphocytes # (1.0-4.8) k/uL Sodium (137-145) mmol/L BUN (9-20) mg/dL Creatinine (0.66-1.25) mg/dL Glucose (74-99) mg/dL POC Glucose (mg/dL) 124 H 128 H 142 H (70-110) mg/dL 08/11/24 08/11/24 08/11/24 Range/Units 18:46 20:16 21:58 WBC (3.8-10.6) k/uL RBC (4.30-5.90) m/uL Hgb (13.0-17.5) gm/dL Hct (39.0-53.0) % Neutrophils # (1.3-7.7) k/uL Lymphocytes # (1.0-4.8) k/uL Sodium (137-145) mmol/L BUN (9-20) mg/dL Creatinine (0.66-1.25) mg/dL Glucose (74-99) mg/dL POC Glucose (mg/dL) 157 H 227 H 303 H (70-110) mg/dL 08/11/24 08/12/24 08/12/24 Range/Units 23:16 01:12 05:02 WBC (3.8-10.6) k/uL RBC (4.30-5.90) m/uL Hgb (13.0-17.5) gm/dL Hct (39.0-53.0) % Neutrophils # (1.3-7.7) k/uL Lymphocytes # (1.0-4.8) k/uL Sodium (137-145) mmol/L BUN (9-20) mg/dL Creatinine (0.66-1.25) mg/dL Glucose (74-99) mg/dL POC Glucose (mg/dL) 269 H 213 H 185 H (70-110) mg/dL 08/12/24 08/12/24 08/12/24 Range/Units 05:15 05:15 06:41 WBC 18.1 H (3.8-10.6) k/uL RBC 2.36 L (4.30-5.90) m/uL Hgb 7.0 L (13.0-17.5) gm/dL Hct 22.3 L (39.0-53.0) % Neutrophils # 17.5 H (1.3-7.7) k/uL Lymphocytes # 0.2 L (1.0-4.8) k/uL Sodium 132 L (137-145) mmol/L BUN 125 H* (9-20) mg/dL Creatinine 2.28 H (0.66-1.25) mg/dL Glucose 154 H (74-99) mg/dL POC Glucose (mg/dL) 207 H (70-110) mg/dL 08/12/24 08/12/24 Range/Units 08:20 09:48 WBC (3.8-10.6) k/uL RBC (4.30-5.90) m/uL Hgb (13.0-17.5) gm/dL Hct (39.0-53.0) % Neutrophils # (1.3-7.7) k/uL Lymphocytes # (1.0-4.8) k/uL Sodium (137-145) mmol/L BUN (9-20) mg/dL Creatinine (0.66-1.25) mg/dL Glucose (74-99) mg/dL POC Glucose (mg/dL) 188 H 156 H (70-110) mg/dL Assessment and Plan Assessment: Impression: Acute on chronic hypoxic respiratory failure, multifactorial, I suspect this is mostly a picture of pulmonary edema, underlying pneumonia is not entirely ruled out. Hence the patient will remain on antibiotics and diuretics. Acute exacerbation of chronic systolic congestive heart failure, recent echocardiogram from 07/20/2024 estimating a left ventricular ejection fraction of 45 to 50%, moderate pulmonary hypertension, and moderate tricuspid regurgitation. Repeat echocardiogram showed improvement in LV function with ejection fraction 55% Acute leukocytosis Acute on chronic kidney disease Recent influenza A infection History of atrial fibrillation with previous cardioversion History of underlying COPD and chronic tobacco dependence Benign essential hypertension Type 2 diabetes Recommendation: Change BiPAP to high flow nasal cannula and titrate accordingly Continue bronchodilators Continue Lasix, and continue Aldactone Continue Solu-Medrol Continue empiric antibiotics and antifungal patient is on cefepime and Levaquin and itraconazole Procalcitonin level is not elevated and never was elevated even on his last admission Continues to have elevated BNP level Continue to monitor in the ICU, at least for the next 24 hours Will continue to follow C Time with Patient: Less than 30
[2024-08-12 14:12] LABS: Glucose,Whole Blood 167 mg/dL (70-110)
[2024-08-12 16:27] LABS: Glucose,Whole Blood 333 mg/dL (70-110)
--- NOTE | 2024-08-12 17:00 | P.PN ---
Subjective Progress Note Date: 08/12/24 Principal diagnosis: Reason for follow-up is pneumonia Patient is a 64-year-old male with a past medical history significant for diabetes mellitus hypertension hyperlipidemia pneumonia atrial fibrillation currently everyday smoker presenting to the hospital for evaluation of increasing shortness of breath patient has been diagnosed with multifocal pneumonia prompting this consultation. On today's evaluation that is 08/12/2024,the patient denies any fever or any chi lls, patient is breathing slightly comfortably however still requiring high flow nasal oxygen at 35% FiO2 patient denies any chest pain no worsening cough no abdominal pain no diarrhea. Patient white count is down to 18.1 creatinine is 2.28 blood culture negative sputum cultures pending Objective - Vital Signs Vital signs: Vital Signs Temp 98.9 F 08/12/24 08:00 Pulse 81 08/12/24 12:10 Resp 20 08/12/24 11:00 BP 111/59 08/12/24 11:00 Pulse Ox 97 08/12/24 11:00 FiO2 35 08/12/24 08:07 Intake & Output 08/11/24 08/12/24 08/12/24 18:59 06:59 18:59 Intake Total 548.164 2740.856 81.625 Output Total 970 600 0 Balance -826.470 539.856 81.625 Weight 101.8 kg 103.7 kg Intake: IV 110 180 50 .9 110 80 50 Cefepime 2 gm In Sodium 100 Chloride 0.9% 100 ml @ 25 mls/hr IVPB Q12H [facility] Rx# :[id number] Intake, IV Titration 33.530 49.856 31.625 Amount Insulin Regular 100 unit 33.530 49.856 31.625 In Sodium Chloride 0.9% 100 ml @ Titrate IV .Q0M [facility] Rx#:[id number] Oral 910 Output: Urine 970 600 0 Other: Voiding Method External Catheter External Catheter External Catheter # Voids 0 - Exam GENERAL DESCRIPTION: An elderly male lying in bed in no distress RESPIRATORY SYSTEM: Unlabored breathing , coarse breath sounds bilaterally HEART: S1 S2 regular rate and rhythm , ABDOMEN: Soft , no tenderness EXTREMITIES: No edema feet - Labs CBC & Chem 7: 08/12/24 05:15 08/12/24 05:15 Labs: Abnormal Lab Results - Last 24 Hours (Table) 08/11/24 08/11/2408/11/25 Range/Units 15:26 16:37 17:28 WBC (3.8-10.6) k/uL RBC (4.30-5.90) m/uL Hgb (13.0-17.5) gm/dL Hct (39.0-53.0) % Neutrophils # (1.3-7.7) k/uL Lymphocytes # (1.0-4.8) k/uL Sodium (137-145) mmol/L BUN (9-20) mg/dL Creatinine (0.66-1.25) mg/dL Glucose (74-99) mg/dL POC Glucose (mg/dL) 124 H 128 H 142 H (70-110) mg/dL 08/11/24 08/11/24 08/11/24 Range/Units 18:46 20:16 21:58 WBC (3.8-10.6) k/uL RBC (4.30-5.90) m/uL Hgb (13.0-17.5) gm/dL Hct (39.0-53.0) % Neutrophils # (1.3-7.7) k/uL Lymphocytes # (1.0-4.8) k/uL Sodium (137-145) mmol/L BUN (9-20) mg/dL Creatinine (0.66-1.25) mg/dL Glucose (74-99) mg/dL POC Glucose (mg/dL) 157 H 227 H 303 H (70-110) mg/dL 08/11/24 08/12/24 08/12/24 Range/Units 23:16 01:12 05:02 WBC (3.8-10.6) k/uL RBC (4.30-5.90) m/uL Hgb (13.0-17.5) gm/dL Hct (39.0-53.0) % Neutrophils # (1.3-7.7) k/uL Lymphocytes # (1.0-4.8) k/uL Sodium (137-145) mmol/L BUN (9-20) mg/dL Creatinine (0.66-1.25) mg/dL Glucose (74-99) mg/dL POC Glucose (mg/dL) 269 H 213 H 185 H (70-110) mg/dL 03/08/12/24 08/12/24 Range/Units 05:15 05:15 06:41 WBC 18.1 H (3.8-10.6) k/uL RBC 2.36 L (4.30-5.90) m/uL Hgb 7.0 L (13.0-17.5) gm/dL Hct 22.3 L (39.0-53.0) % Neutrophils # 17.5 H (1.3-7.7) k/uL Lymphocytes # 0.2 L (1.0-4.8) k/uL Sodium 132 L (137-145) mmol/L BUN 125 H* (9-20) mg/dL Creatinine 2.28 H (0.66-1.25) mg/dL Glucose 154 H (74-99) mg/dL POC Glucose (mg/dL) 207 H (70-110) mg/dL 08/12/24 08/12/24 Range/Units 08:20 09:48 WBC (3.8-10.6) k/uL RBC (4.30-5.90) m/uL Hgb (13.0-17.5) gm/dL Hct (39.0-53.0) % Neutrophils # (1.3-7.7) k/uL Lymphocytes # (1.0-4.8) k/uL Sodium (137-145) mmol/L BUN (9-20) mg/dL Creatinine (0.66-1.25) mg/dL Glucose (74-99) mg/dL POC Glucose (mg/dL) 188 H 156 H (70-110) mg/dL Assessment and Plan (1) Leukocytosis Current Visit: Yes Status: Acute Code(s): D72.829 - ELEVATED WHITE BLOOD CELL COUNT, UNSPECIFIED SNOMED Code(s): 925661821 (2) Bilateral pneumonia Current Visit: Yes Status: Acute Code(s): J18.9 - PNEUMONIA, UNSPECIFIED ORGANISM SNOMED Code(s): 163800980 Plan: 1patient presented hospital with increasing shortness of breath and chest pain which is likely multifactorial in this patient who did have evidence of PE on the CT there is also evidence of multifocal pneumonia with elevated white count and recently acute influenza A will need to cover for resistant gram-positive as well as gram-negative pathogen for post influenza pneumonia 2-patient sputum culture as well as fungal serologies currently pending 3-patient to continue cefepime and itraconazole, and monitor clinical course closely Dictation was produced using [employer] dictation software. please excuse any grammatical, word or spelling errors. Time with Patient: Less than 30
--- NOTE | 2024-08-12 17:13 | P.PN ---
Progress Note - Text Progress Note Date: 08/12/24 Patient is a 64-year-old male with a PMH of atrial fibrillation on Eliquis, COPD on 2 L home oxygen, [id number] diabetes mellitus, hyperlipidemia, hypertension presenting with shortness of breath. Patient was previously admitted here for acute hypoxic respiratory failure secondary to influenza pneumonia and was discharged on 2 L of home oxygen. Patient states he has been feeling short of breath while at rest. He reports that since being discharged the home oxygen has not been sufficient. He states that he had to keep increasing his oxygen. Patient says shortness of breath is slightly relieved when he is laying down. Denies any orthopnea or PND. Patient endorses a nonpr oductive cough that is chronic in nature, but says it has been getting worse. Patient admits to having fever, chills. Patient also admits to having non- radiating, pressure-like chest pain over the last few days. Chest pain is not related to exertion and he had no alleviating or aggravating factors. Patient denies any headache, vision changes, nausea, vomiting, diarrhea, abdominal pain, urinary symptoms. EKG independently interpreted displaying sinus rhythm with left bundle branch block that has been seen on prior EKG, rate 65 bpm, QTc 451 ms CXR independently interpreted displaying bilateral multifocal airspace opacities Chest CTA displaying acute segmental and subsegmental pulmonary emboli within the right and middle lower lobes, no saddle embolus, no RV strain, chronic interstitial loading disease Venous Doppler B/L LE displaying no evidence of acute DVT Troponin 0.049, 0.055, proBNP 8810, D-dimer 4.87, WBC 22.6, Hgb 11.0, HCT 35.2, MCV 93.7, platelet 322, PT 11.8, INR 1.1, APTT 28, sodium 133, potassium 4.2, CO2 24, BUN 30, creatinine 1.27, glucose 135 VBG pH 7.52, pCO2 32 T98.2 F, MI 80, RR 26, BP 163/77, O2 sat 90% on BiPAP with FiO2 of 100% August 05: Overflow the ER. Up in the bed. Short of breath. Patient was on BiPAP overnight. This morning on 15 L high flow nasal cannula. Decreased appetite. Has got a cough. Some wheezing. Some sputum production. Decreased appetite. Patient is on IV heparin. Also on IV cefepime. Pulmonary following August 06: Patient did confirm that because Eliquis is very expensive patient was not taking it properly did and take it sparingly at home. Explains patient's PE. Started on Eliquis today by cardiology. IV heparin discontinued. Getting easily short of breath. Requiring BiPAP.. Some cough. Oral intake fair. On IV cefepime and vancomycin. ID following. Also on IV Lasix. Due to worsening renal function will DC vancomycin August 07: Saw this afternoon. On BiPAP. 60%. Ensure ordered. All blood work ordered by pulmonary including fungal. Patient currently on IV cefepime and Levaquin. IV Solu-Medrol. Remain short of breath. Tired. Being followed by pulmonary and ID. Chest x-ray film personally reviewed by me-showing pulm edema bilateral infiltrates especially at the bases. Renal ultrasound nonspecific. UA showing protein 1+. August 08: Remain short of breath. Sitting up in bed. Not able to come off the BiPAP. Remains on IV cefepime. Accu-Cheks running high. Put on insulin drip. On IV Solu-Medrol. Oral intake fair. August 09: Patient remains short of breath. Unable to get off BiPAP. FiO2 increased to 70%. 04/30. Per Dr. Goode: Patient be moved to the ICU. Poor oral intake. Remains on insulin drip. IV Solu-Medrol. Eliquis. IV cefepime and Levaquin. Tired. Sitting up in bed leaning forward short of breath. Chest x-ray film personally reviewed by me: Scattered bilateral infiltrates August 10: ICU. Remains on BiPAP. Decreased oral intake. Sitting up. Short of breath. On IV cefepime. Insulin drip. IV Solu-Medrol. DuoNeb Q4. Rather tired. Also yesterday evening at epistaxis. Nasal packing. August 11: ICU. Mostly been on BiPAP. High flow nasal cannula. Decreased oral intake. Sitting up leaning forward. Remains on IV cefepime or Levaquin insulin drip. A bit tired. Patient has very poor oral intake. Per implementation consultant patient will IV Lasix. Note worsening renal function-cut back to Lasix once a day. Given blood pressure running lower side. DC Aldactone and DC amlodipine. August 12: ICU. Patient was taken off BiPAP this morning. Decreased to high flow nasal cannula 10 L. at the bedside. Encourage oral intake. Chopped diet. Per implementation consultant nephrology patient to continue on IV Lasix. Blood pressure better after stopping amlodipine and Aldactone yesterday. Encourage oral intake. Incentive spirometry. IV cefepime, Levaquin, I terconazole per ID. Active Medications Albuterol/Ipratropium (Ipratropium-Albuterol 3 Ml Neb) 3 ml INHALATION RT-QID PRN PRN Reason: Shortness Of Breath Or Wheezing Albuterol/Ipratropium (Ipratropium-Albuterol 3 Ml Neb) 3 ml INHALATION RT-Q4H [facility] Last Admin: 08/12/24 16:21 Dose: 3 ml Alprazolam (Alprazolam 0.5 Mg Tab) 0.5 mg PO TID PRN PRN Reason: Anxiety Last Admin: 08/11/24 21:55 Dose: 0.5 mg Aspirin (Aspirin 81 Mg) 81 mg PO DAILY [facility] Last Admin: 08/12/24 10:43 Dose: 81 mg Budesonide (Budesonide 1 Mg/2 Ml Nebu) 1 mg INHALATION RT-BID [facility] Last Admin: 08/12/24 07:58 Dose: 1 mg Dextrose/Water (Dextrose 50% Syringe 50 Ml) 25 ml IVP PER PROTOCOL PRN; Protocol PRN Reason: Hypoglycemia Dextrose/Water (Dextrose 50% Syringe 50 Ml) 50 ml IVP PER PROTOCOL PRN; Protocol PRN Reason: Hypoglycemia Formoterol Fumarate (Formoterol Fumarate 20 Mcg/2 Ml Nebu) 20 mcg INHALATION RT-BID [facility] Last Admin: 08/12/24 07:57 Dose: 20 mcg Furosemide (Furosemide 10 Mg/Ml 4 Ml Vial) 40 mg IV Q12HR [facility] Cefepime HCl 2 gm/ Sodium (Chloride) 100 mls @ 25 mls/hr IVPB Q12H [facility]; Protocol Last Admin: 08/12/24 10:44 Dose: 25 mls/hr Insulin Human Regular 100 unit (/ Sodium Chloride) 100 mls @ 0 mls/hr IV .Q0M [facility]; Protocol Last Titration: 08/12/24 12:35 Dose: 0 units/hr, 0 mls/hr Itraconazole (Itraconazole 100 Mg Cap) 200 mg PO BID [facility]; Protocol Last Admin: 08/12/24 10:44 Dose: 200 mg Levofloxacin (Levofloxacin 750 Mg Tab) 750 mg PO Q48H [facility]; Protocol Last Admin: 08/11/24 17:04 Dose: 750 mg Lorazepam (Lorazepam 1 Mg Tab) 1 mg PO HS PRN PRN Reason: Anxiety Last Admin: 08/11/24 21:55 Dose: 1 mg Methylprednisolone Sodium Succinate (Methylprednisolone Sod Succi 125 Mg/2 Ml Vial) 60 mg IV Q8H [facility] Last Admin: 08/12/24 10:43 Dose: 60 mg Metoprolol Succinate (Metoprolol Succinate (Er) 25 Mg Tab.Er.24h) 25 mg PO DAILY [facility] Last Admin: 08/12/24 10:44 Dose: 25 mg Morphine Sulfate (Morphine Sulfate 4 Mg/Ml Syringe) 4 mg IV Q4HR PRN PRN Reason: Severe Pain (Scale 7 to 10) Naloxone HCl (Naloxone 0.4 Mg/Ml 1 Ml Vial) 0.2 mg IV Q2M PRN PRN Reason: Opioid Reversal Ondansetron HCl (Ondansetron 4 Mg/2 Ml Vial) 4 mg IVP Q8HR PRN PRN Reason: Nausea And Vomiting Last Admin: 08/07/24 14:52 Dose: 4 mg Oxymetazoline HCl (Oxymetazoline 0.05% Nasl [place] 1 [place] Bottle) 2 spray NASAL BID [facility] Last Admin: 08/12/24 10:44 Dose: 2 spray Pantoprazole Sodium (Pantoprazole 40 Mg Tablet) 40 mg PO AC-BRKFST [facility] Last Admin: 08/12/24 06:37 Dose: 40 mg Potassium Chloride (Potassium Chloride Er 20 Meq Tab.Er) 20 meq PO DAILY [facility] Last Admin: 08/12/24 10:44 Dose: 20 meq Sodium Chloride (Sodium Chloride 0.65% Nasal [place] 44 Ml Btl) 2 spray NASAL QID PRN PRN Reason: Dry Nasal Passages Social history: Tobacco: Current [id number] smoker Alcohol: Occasional alcohol use Recreational drugs: Marijuana Travel: No recent travel On examination: VITAL SIGNS: Afebrile, 72, 21, 110 x 90, 92% on 10 L high flow GENERAL APPEARANCE: Sitting up in bed, leaning forward, a bit less short of breath HEENT: Normal external appearance of nose and ear. Oral cavity normal EYES: Pupils equal. Conjunctiva normal. NECK: JVD unable to assess. Mass not palpable. RESPIRATORY: Respiratory effort increased, not able to speak in full sentences. Accessory muscles working. Lungs diminished breath sounds some scattered crackles prolonged expiration. CARDIOVASCULAR: First and second sounds normal. No edema. ABDOMEN: Soft. Liver and spleen not palpable. No tenderness. No mass palpable. PSYCHIATRY: Answering questions appropriately. A bit less tired INVESTIGATIONS, reviewed in the clinical context: August 12: White count 18.1 hemoglobin 7 platelets 182 potassium 4.6 BUN 125 creatinine 2.28 August 11: White count 22.8 hemoglobin 7.4 platelets 200 sodium 130 potassium 4.2 BUN 117 creatinine 2.11 August 10: White count 21.7 hemoglobin 7.9 platelets 201 sodium 128 potassium 4.5 BUN 95 creatinine 1.97 16: White count 21.1 hemoglobin 9.1 platelets 245 potassium 4.2 BUN 68 creatinine 1.73 August 08: White count 8.2 hemoglobin 9.2 platelets 232 ABG: pH 7.3 pCO2 42 pO2 80 sodium 133 potassium 3.6 creatinine 1.69. Accu-Cheks high August 07: White count 20.8 hemoglobin 9.2 platelets 265 sodium 134 BUN 44 creatinine 1.54. Chest x-ray: Pulm edema/bilateral infiltrates August 06: Sodium 132 potassium 3.4 BUN 35 creatinine 1.51 August 05: White count 7.2 hemoglobin 10.3 platelets 242 sodium 136 potassium 3.8 BUN 28 creatinine 1.37 Troponin I: 0.049, 0.055, 0.051 Chest x-ray film personally reviewed by me-bilateral infiltrates. Effusion/pulm edema cardiomegaly. Venous Doppler: No DVT Chest CTA: Acute segmental and subsegmental pulm embolism within the right middle and right lower lobes. No RV strain. Chronic interstitial lung disease. Previous labs: Creatinine 1.63 in October 2022 Assessment/Plan: #. Acute pulmonary embolism, non-massive [segmental and subsegmental within the right middle and lower lobes. No RV strain IV heparin, currently on o Eliquis #. Sepsis likely secondary to -viral pneumonia. Secondary bacterial component probable IV cefepime. And Levaquin-also has been on itraconazole started on the August 07 ID and pulmonary following #. Acute hypoxic respiratory failure, secondary to above: Improving Was on BiPAP, and today on 10 L nasal cannula #. Acute COPD exacerbation, in a prior smoker: Some improvement DuoNeb Q4. IV Solu-Medrol 60 mg q8. Nebulized Pulmicort #. Acute on chronic heart failure with reduced ejection fraction (EF 45 to 50%): Some improvement IV Lasix 40 mg every 12. Aldactone-discontinued. #. Chronic hypoxic respiratory failure from underlying COPD, 2 L home O2 -Acute kidney injury, likely ATN multifactorial Admission creatinine 1.27. Currently 2.11 #. Per-dnvenyi-ptmvzkhsg type 2 diabetes, uncontrolled with hyperglycemia secondary steroids: Not improving Insulin subcu sliding scale. Stop Levemir. Currently on insulin drip y Accu-Cheks ACHS - chronic kidney disease stage III from nephrosclerosis and diabetic nephropathy [creatinine 1.63 in October 2022] Renal ultrasound.: Suboptimal study. No corticomedullary comment. UA protein 1+ -Recent influenza type A #. Essential hypertension- Toprol-XL. Other antihypertensives have been held #. Hyperlipidemia Lipitor -Full code Some improvement. Continue IV Lasix. Antibiotics per ID including cefepime, I terconazole, Levaquin. IV steroids. Bronchodilators. Encourage oral intake. Past Medical History Past Medical History: Atrial Fibrillation, Diabetes Mellitus, Hyperlipidemia, Hypertension, Pneumonia, Supraventricular Tachycardia (SVT) Additional Past Medical History / Comment(s): a fib, causes shortness of breath, can feel irregular heartbeat History of Any Multi-Drug Resistant Organisms: None Reported Past Surgical History: Cholecystectomy, Heart Catheterization Additional Past Surgical History / Comment(s): Colonoscopy Past Anesthesia/Blood Transfusion Reactions: No Reported Reaction Past Psychological History: No Psychological Hx Reported Smoking Status: Current every day smoker Past Alcohol Use History: Occasional Past Drug Use History: Marijuana
[2024-08-12 18:05] LABS: Glucose,Whole Blood 343 mg/dL (70-110)
[2024-08-12 19:02] LABS: Glucose,Whole Blood 383 mg/dL (70-110)
[2024-08-12 20:05] LABS: Glucose,Whole Blood 366 mg/dL (70-110)
[2024-08-12] MEDS: FUROSEMIDE 10 MG/ML 4 ML VIAL IV SCH (20:27)
[2024-08-12 21:05] LABS: Glucose,Whole Blood 258 mg/dL (70-110)
[2024-08-12 22:04] LABS: Glucose,Whole Blood 212 mg/dL (70-110)
[2024-08-12 23:05] LABS: Glucose,Whole Blood 118 mg/dL (70-110)
[2024-08-13 00:05] LABS: Glucose,Whole Blood 75 mg/dL (70-110)
[2024-08-13 00:38] LABS: Glucose,Whole Blood 66 mg/dL (70-110)
[2024-08-13 01:00] LABS: Glucose,Whole Blood 87 mg/dL (70-110)
[2024-08-13 02:10] LABS: Glucose,Whole Blood 158 mg/dL (70-110)
[2024-08-13 03:17] LABS: Glucose,Whole Blood 232 mg/dL (70-110)
[2024-08-13 04:00] LABS: Glucose,Whole Blood 239 mg/dL (70-110)
[2024-08-13 04:28] LABS: Basophils # (A) 0.1 k/uL (0-0.2); Basophils % (A) 0 %; Eosinophils % (A) 0 %; Lymphocytes # (A) 0.2 k/uL (1.0-4.8); Lymphocytes % (A) 1 %; MCH 29.9 pg (25.0-35.0); MCHC 32.8 g/dL (31.0-37.0); MCV 91.2 fL (80.0-100.0); Mean Platelet Volume 11.9; Monocytes # (A) 0.6 k/uL (0-1.0); Monocytes % (A) 3 %; Neutrophils # (A) 16.4 k/uL (1.3-7.7); Neutrophils % (A) 94 %; Platelet Count 163 k/uL (150-450); RBC 2.08 m/uL (4.30-5.90); RDW 13.5 % (11.5-15.5); WBC 17.4 k/uL (3.8-10.6)
[2024-08-13 04:29] LABS: HGB 6.2 gm/dL (13.0-17.5)
[2024-08-13 05:47] LABS: African American GFR (CKD) 38 (>60 ml/min/1.73 sqM); Anion Gap 12 mmol/L; Calcium 8.5 mg/dL (8.4-10.2); Carbon Dioxide 17 mmol/L (22-30); Chloride 109 mmol/L (98-107); Glucose 201 mg/dL (74-99); Non-African American GFR(CKD) 33 (>60 ml/min/1.73 sqM); Potassium 5.2 mmol/L (3.5-5.1); Sodium 138 mmol/L (137-145)
[2024-08-13 05:56] LABS: Glucose,Whole Blood 196 mg/dL (70-110)
[2024-08-13 05:57] LABS: Blood Urea Nitrogen 139 mg/dL (9-20)
[2024-08-13 06:59] LABS: Glucose,Whole Blood 160 mg/dL (70-110)
--- NOTE | 2024-08-13 07:21 | XR ---
EXAMINATION TYPE: XR chest 1V portable DATE OF EXAM: 08/13/2024 5:41 AM COMPARISON: Chest radiograph from one day prior. CLINICAL INDICATION: Male, 64 years old with history of CHF; TECHNIQUE: XR chest 1V portable Frontal view of the chest. FINDINGS: Lungs/Pleura: There is no evidence of pleural effusion, focal consolidation, or pneumothorax. Pulmonary vascularity: Pulmonary vascular congestion. Heart/mediastinum: Cardiomediastinal silhouette is enlarged. Musculoskeletal: No acute osseous pathology. IMPRESSION: Cardiomegaly and mild pulmonary vascular congestion. Correlate with BNP for congestive heart failure. [facility], , 08/13/2024 7:19 AM
[2024-08-13 08:11] LABS: Glucose,Whole Blood 119 mg/dL (70-110)
[2024-08-13] MEDS: MORPHINE SULFATE 4 MG/ML SYRINGE IV PRN (09:22)
[2024-08-13 09:35] LABS: Glucose,Whole Blood 104 mg/dL (70-110)
[2024-08-13 10:49] LABS: Glucose,Whole Blood 145 mg/dL (70-110)
[2024-08-13] MEDS: LACTULOSE 20 GM/30 ML CUP PO ONE (11:04)
--- NOTE | 2024-08-13 11:46 | P.PN ---
Subjective Progress Note Date: 08/13/24 Principal diagnosis: Acute on chronic hypoxic respiratory failure, multifactorial Patient is a 64-year-old male with past medical history significant for atrial fibrillation, diabetes mellitus, CKD stage III, hypertension, hyperlipidemia, tobacco smoker. Of note, recently had a prolonged hospitalization 07/19/2024 through 07/31/2024. Treated for combination of influenza A, pneumonia, CHF. Completed course of antibiotics and Tamiflu. At this time, did require noninvasive BiPAP, eventually discharged on home O2. Returns with a chief complaint of shortness of breath progressing over the last 2 to 3 days. Also, reports sudden onset substernal chest pain that developed the night prior and has been persistent. On arrival to the ED, found to be in some respiratory distress, and placed on BiPAP. Workup in the emergency department including a chest x-ray showing multifocal infiltrates concerning for pneumonia or pulmonary edema. D-dimer was elevated in setting CT angio protocol which was positive for segmental and subsegmental right middle lobe and right lower lobe pulmonary emboli. No saddle pulmonary embolus. Pulmonary artery mildly enlarged. Preserved RV to LV ratio. There were diffuse coarse reticular infiltrates, as well as, groundglass lung attenuation, cystic changes, with concerns for interstitial lung disease. Patient does take Eliquis for his history of atrial fibrillation. Does state he has missed some doses lately. CBC: WBC count 22.6, hemoglobin 11, platelets 322. CMP: Sodium 133, potassium 4.2, chloride 101, serum bicarb 24, BUN 30, creatinine 1.27, glucose 135. Lactic 1.5. VBG with a pH of 7.5 and pCO2 of 32. EKG: Sinus rhythm, rate 65 bpm, left bundle branch block, not acute. Elevated serial troponins 0.049 and 0.055 respectively. NT proBNP elevated 8807. Patient is currently being evaluated in the emergency department. He is alert and some moderate respiratory distress. On BiPAP with settings 12/5 and FiO2 60%. Tachypneic, breathing around 40 breaths/min. Endorses progressive worsening difficulty in breathing over last couple days. He has tried to increase his supplemental oxygen at home without any relief. Denies previous history of DVT or PE. Associated nonproductive cough. Denies sputum production or hemoptysis. Substernal nonradiating chest pain persist. Denies any fevers or chills. Denies heart palpitations or syncopal events. Denies swelling in the lower extremities. Heart rhythm is normal sinus on bedside monitor. Blood pressure has been normotensive, did receive 2 L of crystalloid fluid bolus earlier. Not requiring any vasopressors. Normal saline is infusing at 150 mL/h. IV heparin infusing per protocol 08/06/2024, the patient is being seen for a follow-up. The patient is alternating between BiPAP at a pressure of 12/5 with an FiO2 of 60% and 15 L of oxygen by nasal cannula. He is getting slightly anxious and the patient is being provided Xanax accordingly. Fluid balance is -1.1 L over the past 24 hours. Limited echocardiogram was also done and it showed preserved LV function with an EF of around 55 to 60%. Valvular functions could not be accurately assessed as the patient's study was technically difficult study. There was however RV dilatation. Unable to estimate RV pressures. The electrolytes from today showed a creatinine of 1.5 with a BUN of 35. Bicarb is at 21. Sodium is at 132. The patient remains on DuoNeb updrafts. The patient remains on a combination of cefepime and vancomycin. The patient was taken off the IV hep lizzette and the patient was started on anticoagulation with Eliquis. Remains on IV Solu-Medrol 60 mg every 6 hours. Remains on Aldactone. Remains on IV Lasix 40 mg every 12 hours. On today's evaluation of 08/07/2024, the patient is overall condition is essentially unchanged. Continues to be hypoxic, continues to be on BiPAP and the patient remains at a pressure of 12/5 with an FiO2 of 60%. Continues to have crackles in lung base bilaterally. White cell count remains elevated at 20 with a hemoglobin 9.2. Very much BiPAP dependent as the patient desaturates once taken off the BiPAP. BUN is 44 with a platelet of 1.5. Sodium levels at 134 and a potassium level is at 3.4. Remains on DuoNeb updrafts. Remains on IV Lasix 40 mg every 12 hours. Remains on Aldactone. Remains on bronchodilators. Remains on steroids. Empiric antibiotic coverage with IV cefepime. Reviewed the CAT scan again and there is some chronic interstitial changes and the patient has diffuse infiltrates with areas of groundglass. Consider acute interstitial pneumonias. Consider fungal pneumonias. On today's evaluation of 08/08/2024, the patient is feeling slightly better compared to yesterday. The patient is off the BiPAP and the patient is currently on 15 L of oxygen by nasal cannula. Remains on bronchodilators. Remains on IV Solu-Medrol. Remains on IV Lasix. Antibiotic coverage including combination of cefepime, Levaquin orally and itraconazole orally. Fungal antibodies are still pending. Meanwhile, rheumatologic profile showed a negative rheumatoid factor and negative MARISA. Legionella urine antigen is still pending for now. Clinically however, the patient is feeling slightly improved compared to yesterday. His chest x-ray continues to show multifocal airspace disease more so in the right lung. Fluid balance has been negative. The patient's creatinine is currently at 1.6 with a BUN of 54 and a sodium levels at 133. I am going to taper the steroids. The white cell count is 18.2 with a hemoglobin of 9.2. On 08/09/2024, the patient is transferred to the intensive care unit for closer monitoring. As mentioned, the patient developed acute hypoxic respiratory failure with diffuse bilateral pulmonary filtrates discussed earlier. The patient was able to tolerate Airvo, however, overnight, the patient developed epistaxis. Therefore was discontinued the patient was placed back on BiPAP and his current BiPAP is running at a pressure of 12 over 5 cm of water with an FiO2 of 80%. The patient seems to be quite dependent on the BiPAP. Unable to drop the FiO2 any further. Repeat chest x-ray was done and shows stable diffuse bilateral pulm infiltrates which remains essentially unchanged compared to yesterday. Clinically, the patient is awake and alert. He is reported to have some congested cough. No significant sputum production. No chest pain. No hemoptysis. Noted, over the past 48 hours, the patient was diuresed with IV Lasix. Nevertheless, we have not seen any improvement in the patient's oxygenation. The patient was negative fluid balance. His BNP today is at 68 with a creatinine of 1.7. Based on that, I stopped diuretics. Rest of the electrolytes are all within normal limits. White cell count of 21 with a hemoglobin 9.1 and a platelet count of 245. The patient remains on broad- spectrum antibiotics. The patient remains on IV cefepime, itraconazole and Levaquin. Fungal antibodies are still pending for now. MARISA and rheumatoid factor were both negative. Legionella urine antigen was also negative. The patient remains on anticoagulation and I am going to drop the Eliquis dose to 5 mg p.o. twice a day. I am not absolutely convinced that the patient has a pulmonary embolism. I reviewed the CAT scan of the chest and there could be potentially some subsegmental filling defects in the right, however, the overall contrast administration was essentially poor. The patient will be monitored very closely in the intensive care unit. On a separate note, the patient was started on insulin drip for blood sugar control. Patient was seen today on 08/10/2024, remains in the ICU, remains on fluid restrictions for low sodium of 128, he is on BiPAP 12/60%, patient is presenting this time very much similar to his last presentation few weeks ago. I am familiar with this patient, and on his last admission patient responded to treatment with mostly diuretics, and steroids. This time came back with a similar presentation, he is receiving diuretics, but has been on hold for the last 24 hours, and I recommended we go back on Lasix 40 mg IV push every 12 hours, patient is receiving Solu-Medrol at 60 mg IV push every 8 hours, he is also on Levaquin's, cefepime, and he is marginal at best. In addition to this the patient had non-ST elevation myocardial infarction and flu/influenza A back on 08/04. Blood cultures have been negative, patient has leukocytosis with WBC count of 21.7 hemoglobin is 7.9. Creatinine has been slightly rising 1.51 on admission which is about his baseline, today his creatinine is 1.97 with a BUN of 95. Legionella antigen has been negative MARISA screen has been negative rheumatoid factor is negative patient continues to complain of shortness of breath, intermittent cough, and wheezing. Patient was seen today on 08/11/2024, remains in the ICU, remains on BiPAP, patient is down on FiO2 to 50%, so he is on BiPAP 12//50%. Clinically the patient is feeling better breathing easier, remains on empiric antibiotics including cefepime and Levaquin remains on Lasix 40 mg every 12 hours remains on steroids, and today I have noticed probably minimal improvement in his chest x- ray findings. Hence we will continue the same and will make Lasix 40 mg twice daily instead of 40 mg daily. WBC count is 22.8 hemoglobin 7.4 electrolytes are normal BUN is 117 creatinine 2.11 Patient was seen today on 08/12/2024, patient is feeling better today, remains on BiPAP, however he is down to 40%, chest x-ray is showing definite improvement in comparison to previous x-rays of the chest. Patient remains on diuretics r emains on antibiotics and remains on steroids, hence I have no plans to cut down on his diuretics at this point specially with his improvement clinically and improvement noted on the chest x-ray. As a matter fact I was able to discontinue BiPAP, and I placed the patient on a high flow nasal cannula 10 L and he is saturating anywhere between 97 to 99%. Creatinine is noted to be a bit higher today 2.28, his BUN is 125, his WBC count remains elevated at 18.1, hemoglobin is 7. Patient remains quite edematous, and he remains on diuretics in the form of Lasix and Aldactone. Patient was seen today on 08/13/2024, basically about the same, hemoglobin is low and the patient will receive 1 unit of packed RBCs today. Last night he had to go back on BiPAP, although he was tried on high flow nasal cannula throughout the day yesterday, Desaturating and kept getting anxious and agitated, then he w as placed on BiPAP overnight, and he remains on BiPAP 12/5/50%. Hemoglobin today is 6.2, had some recommending at least a unit of packed RBCs. Chest x-ray continues to show bilateral interstitial edema/infiltrates. Patient remains on cefepime, IV fluids at KVO, remains on diuretics. Renal functioning is holding and not showing any significant change. Objective - Vital Signs Vital signs: Vital Signs Temp 97.3 F L 08/13/24 08:54 Pulse 65 08/13/24 11:37 Resp 14 08/13/24 11:00 BP 120/57 08/13/24 11:00 Pulse Ox 97 08/13/24 11:22 FiO2 50 08/13/24 08:43 Intake & Output 08/12/24 08/13/24 08/13/24 18:59 06:59 18:59 Intake Total 161.208 930.517 669.313 Output Total 1200 1400 800 Balance -1038.792 -469.483 -130.687 Weight 100.8 kg Intake: IV 120 220 140 .9 120 120 40 Cefepime 2 gm In Sodium 100 100 Chloride 0.9% 100 ml @ 25 mls/hr IVPB Q12H [facility] Rx# :[id number] Intake, IV Titration 41.208 88.517 49.313 Amount Insulin Regular 100 unit 41.208 88.517 49.313 In Sodium Chloride 0.9% 100 ml @ Titrate IV .Q0M [facility] Rx#:[id number] Oral 622 480 Blood Product 0 Rc As-1 Unit 0 [id number] Output: Urine 1200 1400 800 Other: Voiding Method External Catheter External Catheter - Exam GENERAL EXAM: 64-year-old white male obese , on BiPAP 12//50% HEAD: Normocephalic and atraumatic EYES: Normal reaction of pupils, equal size. NOSE: No evidence of epistaxis. THROAT: No erythema or exudates. NECK: No masses, no JVD. CHEST: No chest wall deformity. LUNGS: Symmetrical chest expansion, crackles at the bases persist. CVS: S1 and S2 normal with soft systolic murmur, regular rhythm. No other extra heart sounds ABDOMEN: No hepatosplenomegaly, active bowel sounds, no guarding or rigidity. SKIN: No rashes CENTRAL NERVOUS SYSTEM: Alert oriented x 3 no gross focal deficit EXTREMITIES: 2+ bipedal edema, good pulses bilaterally. - Labs CBC & Chem 7: 08/13/24 03:23 08/13/24 03:23 Labs: Abnormal Lab Results - Last 24 Hours (Table) 08/12/24 08/12/24 08/12/24 Range/Units 14:11 16:25 18:04 WBC (3.8-10.6) k/uL RBC (4.30-5.90) m/uL Hgb (13.0-17.5) gm/dL Hct (39.0-53.0) % Neutrophils # (1.3-7.7) k/uL Lymphocytes # (1.0-4.8) k/uL Potassium (3.5-5.1) mmol/L Chloride (98-107) mmol/L Carbon Dioxide (22-30) mmol/L BUN (9-20) mg/dL Creatinine (0.66-1.25) mg/dL Glucose (74-99) mg/dL POC Glucose (mg/dL) 167 H 333 H 343 H (70-110) mg/dL Crossmatch 08/12/24 08/12/24 08/12/24 Range/Units 19:01 20:03 21:04 WBC (3.8-10.6) k/uL RBC (4.30-5.90) m/uL Hgb (13.0-17.5) gm/dL Hct (39.0-53.0) % Neutrophils # (1.3-7.7) k/uL Lymphocytes # (1.0-4.8) k/uL Potassium (3.5-5.1) mmol/L Chloride (98-107) mmol/L Carbon Dioxide (22-30) mmol/L BUN (9-20) mg/dL Creatinine (0.66-1.25) mg/dL Glucose (74-99) mg/dL POC Glucose (mg/dL) 383 H 366 H 258 H (70-110) mg/dL Crossmatch 08/12/24 08/12/24 08/13/24 Range/Units 22:03 23:04 00:37 WBC (3.8-10.6) k/uL RBC (4.30-5.90) m/uL Hgb (13.0-17.5) gm/dL Hct (39.0-53.0) % Neutrophils # (1.3-7.7) k/uL Lymphocytes # (1.0-4.8) k/uL Potassium (3.5-5.1) mmol/L Chloride (98-107) mmol/L Carbon Dioxide (22-30) mmol/L BUN (9-20) mg/dL Creatinine (0.66-1.25) mg/dL Glucose (74-99) mg/dL POC Glucose (mg/dL) 212 H 118 H 66 L (70-110) mg/dL Crossmatch 08/13/24 08/13/24 08/13/24 Range/Units 02:09 03:15 03:23 WBC 17.4 H (3.8-10.6) k/uL RBC 2.08 L (4.30-5.90) m/uL Hgb 6.2 L* (13.0-17.5) gm/dL Hct 19.0 L* (39.0-53.0) % Neutrophils # 16.4 H (1.3-7.7) k/uL Lymphocytes # 0.2 L (1.0-4.8) k/uL Potassium (3.5-5.1) mmol/L Chloride (98-107) mmol/L Carbon Dioxide (22-30) mmol/L BUN (9-20) mg/dL Creatinine (0.66-1.25) mg/dL Glucose (74-99) mg/dL POC Glucose (mg/dL) 158 H 232 H (70-110) mg/dL Crossmatch 08/13/24 08/13/24 08/13/24 Range/Units 03:23 03:58 05:15 WBC (3.8-10.6) k/uL RBC (4.30-5.90) m/uL Hgb (13.0-17.5) gm/dL Hct (39.0-53.0) % Neutrophils # (1.3-7.7) k/uL Lymphocytes # (1.0-4.8) k/uL Potassium 5.2 H (3.5-5.1) mmol/L Chloride 109 H (98-107) mmol/L Carbon Dioxide 17 L (22-30) mmol/L BUN 139 H* (9-20) mg/dL Creatinine 2.04 H (0.66-1.25) mg/dL Glucose 201 H (74-99) mg/dL POC Glucose (mg/dL) 239 H (70-110) mg/dL Crossmatch See Detail 08/13/24 08/13/24 08/13/24 Range/Units 05:56 06:58 08:10 WBC (3.8-10.6) k/uL RBC (4.30-5.90) m/uL Hgb (13.0-17.5) gm/dL Hct (39.0-53.0) % Neutrophils # (1.3-7.7) k/uL Lymphocytes # (1.0-4.8) k/uL Potassium (3.5-5.1) mmol/L Chloride (98-107) mmol/L Carbon Dioxide (22-30) mmol/L BUN (9-20) mg/dL Creatinine (0.66-1.25) mg/dL Glucose (74-99) mg/dL POC Glucose (mg/dL) 196 H 160 H 119 H (70-110) mg/dL Crossmatch 08/13/24 Range/Units 10:47 WBC (3.8-10.6) k/uL RBC (4.30-5.90) m/uL Hgb (13.0-17.5) gm/dL Hct (39.0-53.0) % Neutrophils # (1.3-7.7) k/uL Lymphocytes # (1.0-4.8) k/uL Potassium (3.5-5.1) mmol/L Chloride (98-107) mmol/L Carbon Dioxide (22-30) mmol/L BUN (9-20) mg/dL Creatinine (0.66-1.25) mg/dL Glucose (74-99) mg/dL POC Glucose (mg/dL) 145 H (70-110) mg/dL Crossmatch Assessment and Plan Assessment: Impression: Acute on chronic hypoxic respiratory failure, multifactorial, I suspect this is mostly a picture of pulmonary edema, underlying pneumonia is not entirely ruled out. Hence the patient will remain on antibiotics and diuretics. Acute exacerbation of chronic systolic congestive heart failure, recent echocardiogram from 07/20/2024 estimating a left ventricular ejection fraction of 45 to 50%, moderate pulmonary hypertension, and moderate tricuspid regurgitation. Repeat echocardiogram showed improvement in LV function with ejection fraction 55% Acute leukocytosis Acute on chronic kidney disease Recent influenza A infection History of atrial fibrillation with previous cardioversion History of underlying COPD and chronic tobacco dependence Benign essential hypertension Type 2 diabetes Acute on chronic anemia patient will require a unit of packed RBCs to be transfused today. And will continue to monitor for any blood loss specially GI blood losses. Recommendation: Change BiPAP Transfused with 1 unit of packed RBCs Continue bronchodilators Continue Lasix, and Aldactone Continue Solu-Medrol Continue empiric antibiotics and antifungal patient is on cefepime and Levaquin and itraconazole Continues to have elevated BNP level Continue to monitor in the ICU, not ready for transfer at this point yet Remains relatively ill. Will continue to follow C Time with Patient: Less than 30
[2024-08-13 11:56] LABS: Glucose,Whole Blood 205 mg/dL (70-110)
--- NOTE | 2024-08-13 12:14 | P.PN ---
Subjective Patient is seen for follow-up for acute kidney injury. Currently maintained on Lasix Patient remains short of breath requiring BiPAP on and off. Serum creatinine decreased to 2.0. BUN disproportionately elevated at 139. Patient is maintained on steroids and significant drop in hemoglobin noted today with hemoglobin at 6.2. No active bleeding noted 24-hour urine output at 2.6 L Objective - Vital Signs Vital signs: Vital Signs Temp 97.3 F L 08/13/24 08:54 Pulse 65 08/13/24 11:37 Resp 14 08/13/24 11:00 BP 120/57 08/13/24 11:00 Pulse Ox 97 08/13/24 11:22 FiO2 50 08/13/24 08:43 Intake & Output 08/12/24 08/13/24 08/13/24 18:59 06:59 18:59 Intake Total 161.208 930.517 669.313 Output Total 1200 1400 800 Balance -1038.792 -469.483 -130.687 Weight 100.8 kg Intake: IV 120 220 140 .9 120 120 40 Cefepime 2 gm In Sodium 100 100 Chloride 0.9% 100 ml @ 25 mls/hr IVPB Q12H [facility] Rx# :[id number] Intake, IV Titration 41.208 88.517 49.313 Amount Insulin Regular 100 unit 41.208 88.517 49.313 In Sodium Chloride 0.9% 100 ml @ Titrate IV .Q0M [facility] Rx#:[id number] Oral 622 480 Blood Product 0 Rc As-1 Unit 0 [id number] Output: Urine 1200 1400 800 Other: Voiding Method External Catheter External Catheter - Exam Patient is awake, comfortable Maintained on BiPAP Examination of the heart S1 and S2 Examination of the lungs decreased breath sounds at the bases occasional whee zing heard bilaterally Abdomen is soft nontender Examination of lower extremities shows edema 1+ bilaterally DEPUTY BAILIFF exam grossly intact - Labs CBC & Chem 7: 08/13/24 03:23 08/13/24 03:23 Labs: Abnormal Lab Results - Last 24 Hours (Table) 08/12/24 08/12/24 08/12/24 Range/Units 14:11 16:25 18:04 WBC (3.8-10.6) k/uL RBC (4.30-5.90) m/uL Hgb (13.0-17.5) gm/dL Hct (39.0-53.0) % Neutrophils # (1.3-7.7) k/uL Lymphocytes # (1.0-4.8) k/uL Potassium (3.5-5.1) mmol/L Chloride (98-107) mmol/L Carbon Dioxide (22-30) mmol/L BUN (9-20) mg/dL Creatinine (0.66-1.25) mg/dL Glucose (74-99) mg/dL POC Glucose (mg/dL) 167 H 333 H 343 H (70-110) mg/dL Crossmatch 08/12/24 08/12/24 08/12/24 Range/Units 19:01 20:03 21:04 WBC (3.8-10.6) k/uL RBC (4.30-5.90) m/uL Hgb (13.0-17.5) gm/dL Hct (39.0-53.0) % Neutrophils # (1.3-7.7) k/uL Lymphocytes # (1.0-4.8) k/uL Potassium (3.5-5.1) mmol/L Chloride (98-107) mmol/L Carbon Dioxide (22-30) mmol/L BUN (9-20) mg/dL Creatinine (0.66-1.25) mg/dL Glucose (74-99) mg/dL POC Glucose (mg/dL) 383 H 366 H 258 H (70-110) mg/dL Crossmatch 08/12/24 08/12/24 08/13/24 Range/Units 22:03 23:04 00:37 WBC (3.8-10.6) k/uL RBC (4.30-5.90) m/uL Hgb (13.0-17.5) gm/dL Hct (39.0-53.0) % Neutrophils # (1.3-7.7) k/uL Lymphocytes # (1.0-4.8) k/uL Potassium (3.5-5.1) mmol/L Chloride (98-107) mmol/L Carbon Dioxide (22-30) mmol/L BUN (9-20) mg/dL Creatinine (0.66-1.25) mg/dL Glucose (74-99) mg/dL POC Glucose (mg/dL) 212 H 118 H 66 L (70-110) mg/dL Crossmatch 08/13/24 08/13/24 08/13/24 Range/Units 02:09 03:15 03:23 WBC 17.4 H (3.8-10.6) k/uL RBC 2.08 L (4.30-5.90) m/uL Hgb 6.2 L* (13.0-17.5) gm/dL Hct 19.0 L* (39.0-53.0) % Neutrophils # 16.4 H (1.3-7.7) k/uL Lymphocytes # 0.2 L (1.0-4.8) k/uL Potassium (3.5-5.1) mmol/L Chloride (98-107) mmol/L Carbon Dioxide (22-30) mmol/L BUN (9-20) mg/dL Creatinine (0.66-1.25) mg/dL Glucose (74-99) mg/dL POC Glucose (mg/dL) 158 H 232 H (70-110) mg/dL Crossmatch 08/13/24 08/13/24 08/13/24 Range/Units 03:23 03:58 05:15 WBC (3.8-10.6) k/uL RBC (4.30-5.90) m/uL Hgb (13.0-17.5) gm/dL Hct (39.0-53.0) % Neutrophils # (1.3-7.7) k/uL Lymphocytes # (1.0-4.8) k/uL Potassium 5.2 H (3.5-5.1) mmol/L Chloride 109 H (98-107) mmol/L Carbon Dioxide 17 L (22-30) mmol/L BUN 139 H* (9-20) mg/dL Creatinine 2.04 H (0.66-1.25) mg/dL Glucose 201 H (74-99) mg/dL POC Glucose (mg/dL) 239 H (70-110) mg/dL Crossmatch See Detail 08/13/24 08/13/24 08/13/24 Range/Units 05:56 06:58 08:10 WBC (3.8-10.6) k/uL RBC (4.30-5.90) m/uL Hgb (13.0-17.5) gm/dL Hct (39.0-53.0) % Neutrophils # (1.3-7.7) k/uL Lymphocytes # (1.0-4.8) k/uL Potassium (3.5-5.1) mmol/L Chloride (98-107) mmol/L Carbon Dioxide (22-30) mmol/L BUN (9-20) mg/dL Creatinine (0.66-1.25) mg/dL Glucose (74-99) mg/dL POC Glucose (mg/dL) 196 H 160 H 119 H (70-110) mg/dL Crossmatch 08/13/24 08/13/24 Range/Units 10:47 11:54 WBC (3.8-10.6) k/uL RBC (4.30-5.90) m/uL Hgb (13.0-17.5) gm/dL Hct (39.0-53.0) % Neutrophils # (1.3-7.7) k/uL Lymphocytes # (1.0-4.8) k/uL Potassium (3.5-5.1) mmol/L Chloride (98-107) mmol/L Carbon Dioxide (22-30) mmol/L BUN (9-20) mg/dL Creatinine (0.66-1.25) mg/dL Glucose (74-99) mg/dL POC Glucose (mg/dL) 145 H 205 H (70-110) mg/dL Crossmatch Assessment and Plan Assessment: 1. Acute renal injury, ATN associated with underlying infection and borderline low blood pressures in the setting of use of SAGAR inhibitors. May continue with IV diuretics. Ultrasound shows no evidence of obstruction. UA is benign. BUN disproportionately elevated secondary to steroids and possible GI bleed 2. Acute hypoxic respiratory failure secondary to pneumonia and volume overload 3. Volume overload 4. CHF with preserved ejection fraction of 55 to 60% noted this admission 5. Hypervolemic hyponatremia. Patient was also maintained on hypotonic IV fluids which contributed to the hyponatremia, now improved 6. Influenza A infection status post Tamiflu during previous hospitalization about 4 weeks ago 7. Anemia rule out GI bleed, being transfused packed RBCs for hemoglobin 6.2 today. No active bleeding noted Plan: DC potassium Continue with Lasix. BUN is disproportionately elevated from steroids and possi ble underlying GI bleed. Patient may need to start renal replacement therapy Repeat labs in a.m. Continue off of SAGAR inhibitors Continue with Aldactone DC potassium Continue to avoid nephrotoxic agents
[2024-08-13 14:25] LABS: Glucose,Whole Blood 257 mg/dL (70-110)
--- NOTE | 2024-08-13 15:08 | P.PN ---
Subjective Progress Note Date: 08/13/24 Principal diagnosis: Reason for follow-up is pneumonia Patient is a 64-year-old male with a past medical history significant for diabetes mellitus hypertension hyperlipidemia pneumonia atrial fibrillation currently everyday smoker presenting to the hospital for evaluation of increasing shortness of breath patient has been diagnosed with multifocal pneumonia prompting this consultation. On today's evaluation that is 08/13/2024,the patient remains to be afebrile, pat ient is on 12 L high flow nasal cannula supplemental oxygen patient said to be slightly lethargic today not a very good historian hemodynamically stable. Patient white count slightly down to 17.4, creatinine 2.04 blood culture negative Objective - Vital Signs Vital signs: Vital Signs Temp 96.3 F L 08/13/24 12:41 Pulse 81 08/13/24 14:00 Resp 27 H 08/13/24 14:00 BP 130/56 08/13/24 14:00 Pulse Ox 93 L 08/13/24 14:00 FiO2 50 08/13/24 08:43 Intake & Output 08/12/24 08/13/24 08/13/24 18:59 06:59 18:59 Intake Total 161.208 450.287 9270.379 Output Total 1200 1400 1650 Balance -1038.792 -469.483 -72.621 Weight 100.8 kg Intake: IV 120 220 240 .9 120 120 40 Cefepime 2 gm In Sodium 100 200 Chloride 0.9% 100 ml @ 25 mls/hr IVPB Q12H [facility] Rx# :[id number] Intake, IV Titration 41.208 88.517 57.379 Amount Insulin Regular 100 unit 41.208 88.517 57.379 In Sodium Chloride 0.9% 100 ml @ Titrate IV .Q0M [facility] Rx#:[id number] Oral 622 970 Blood Product 310 Rc As-1 Unit 310 [id number] Output: Urine 1200 1400 1650 Other: Voiding Method External Catheter External Catheter - Exam GENERAL DESCRIPTION: An elderly male lying in bed in no distress RESPIRATORY SYSTEM: Unlabored breathing , coarse breath sounds bilaterally HEART: S1 S2 regular rate and rhythm , ABDOMEN: Soft , no tenderness EXTREMITIES: No edema feet - Labs CBC & Chem 7: 08/13/24 03:23 08/13/24 03:23 Labs: Abnormal Lab Results - Last 24 Hours (Table) 08/12/24 08/12/24 08/12/24 Range/Units 16:25 18:04 19:01 WBC (3.8-10.6) k/uL RBC (4.30-5.90) m/uL Hgb (13.0-17.5) gm/dL Hct (39.0-53.0) % Neutrophils # (1.3-7.7) k/uL Lymphocytes # (1.0-4.8) k/uL Potassium (3.5-5.1) mmol/L Chloride (98-107) mmol/L Carbon Dioxide (22-30) mmol/L BUN (9-20) mg/dL Creatinine (0.66-1.25) mg/dL Glucose (74-99) mg/dL POC Glucose (mg/dL) 333 H 343 H 383 H (70-110) mg/dL Crossmatch 08/12/24 08/12/24 08/12/24 Range/Units 20:03 21:04 22:03 WBC (3.8-10.6) k/uL RBC (4.30-5.90) m/uL Hgb (13.0-17.5) gm/dL Hct (39.0-53.0) % Neutrophils # (1.3-7.7) k/uL Lymphocytes # (1.0-4.8) k/uL Potassium (3.5-5.1) mmol/L Chloride (98-107) mmol/L Carbon Dioxide (22-30) mmol/L BUN (9-20) mg/dL Creatinine (0.66-1.25) mg/dL Glucose (74-99) mg/dL POC Glucose (mg/dL) 366 H 258 H 212 H (70-110) mg/dL Crossmatch 08/12/24 08/13/24 08/13/24 Range/Units 23:04 00:37 02:09 WBC (3.8-10.6) k/uL RBC (4.30-5.90) m/uL Hgb (13.0-17.5) gm/dL Hct (39.0-53.0) % Neutrophils # (1.3-7.7) k/uL Lymphocytes # (1.0-4.8) k/uL Potassium (3.5-5.1) mmol/L Chloride (98-107) mmol/L Carbon Dioxide (22-30) mmol/L BUN (9-20) mg/dL Creatinine (0.66-1.25) mg/dL Glucose (74-99) mg/dL POC Glucose (mg/dL) 118 H 66 L 158 H (70-110) mg/dL Crossmatch 08/13/24 08/13/24 08/13/24 Range/Units 03:15 03:23 03:23 WBC 17.4 H (3.8-10.6) k/uL RBC 2.08 L (4.30-5.90) m/uL Hgb 6.2 L* (13.0-17.5) gm/dL Hct 19.0 L* (39.0-53.0) % Neutrophils # 16.4 H (1.3-7.7) k/uL Lymphocytes # 0.2 L (1.0-4.8) k/uL Potassium 5.2 H (3.5-5.1) mmol/L Chloride 109 H (98-107) mmol/L Carbon Dioxide 17 L (22-30) mmol/L BUN 139 H* (9-20) mg/dL Creatinine 2.04 H (0.66-1.25) mg/dL Glucose 201 H (74-99) mg/dL POC Glucose (mg/dL) 232 H (70-110) mg/dL Crossmatch 08/13/24 08/13/24 08/13/24 Range/Units 03:58 05:15 05:56 WBC (3.8-10.6) k/uL RBC (4.30-5.90) m/uL Hgb (13.0-17.5) gm/dL Hct (39.0-53.0) % Neutrophils # (1.3-7.7) k/uL Lymphocytes # (1.0-4.8) k/uL Potassium (3.5-5.1) mmol/L Chloride (98-107) mmol/L Carbon Dioxide (22-30) mmol/L BUN (9-20) mg/dL Creatinine (0.66-1.25) mg/dL Glucose (74-99) mg/dL POC Glucose (mg/dL) 239 H 196 H (70-110) mg/dL Crossmatch See Detail 08/13/24 08/13/24 08/13/24 Range/Units 06:58 08:10 10:47 WBC (3.8-10.6) k/uL RBC (4.30-5.90) m/uL Hgb (13.0-17.5) gm/dL Hct (39.0-53.0) % Neutrophils # (1.3-7.7) k/uL Lymphocytes # (1.0-4.8) k/uL Potassium (3.5-5.1) mmol/L Chloride (98-107) mmol/L Carbon Dioxide (22-30) mmol/L BUN (9-20) mg/dL Creatinine (0.66-1.25) mg/dL Glucose (74-99) mg/dL POC Glucose (mg/dL) 160 H 119 H 145 H (70-110) mg/dL Crossmatch 08/13/24 08/13/24 Range/Units 11:54 14:24 WBC (3.8-10.6) k/uL RBC (4.30-5.90) m/uL Hgb (13.0-17.5) gm/dL Hct (39.0-53.0) % Neutrophils # (1.3-7.7) k/uL Lymphocytes # (1.0-4.8) k/uL Potassium (3.5-5.1) mmol/L Chloride (98-107) mmol/L Carbon Dioxide (22-30) mmol/L BUN (9-20) mg/dL Creatinine (0.66-1.25) mg/dL Glucose (74-99) mg/dL POC Glucose (mg/dL) 205 H 257 H (70-110) mg/dL Crossmatch Assessment and Plan (1) Leukocytosis Current Visit: Yes Status: Acute Code(s): D72.829 - ELEVATED WHITE BLOOD CELL COUNT, UNSPECIFIED SNOMED Code(s): 362984052 (2) Bilateral pneumonia Current Visit: Yes Status: Acute Code(s): J18.9 - PNEUMONIA, UNSPECIFIED ORGANISM SNOMED Code(s): 274697263 Plan: 1patient presented hospital with increasing shortness of breath and chest pain which is likely multifactorial in this patient who did have evidence of PE on the CT there is also evidence of multifocal pneumonia with elevated white count and recently acute influenza A will need to cover for resistant gram-positive as well as gram-negative pathogen for post influenza pneumonia 2-blood culture has been negative was told few days ago the sputum was collected but is no results available in the micro section will be ordered again 3-patient to continue cefepime and itraconazole, progress remains to be guarded Dictation was produced using [employer] dictation software. please excuse any gramma tical, word or spelling errors. Time with Patient: Less than 30
[2024-08-13 16:40] LABS: Glucose,Whole Blood 260 mg/dL (70-110)
[2024-08-13 17:40] LABS: Glucose,Whole Blood 248 mg/dL (70-110)
[2024-08-13 18:31] LABS: HCT 21.9 % (39.0-53.0); HGB 7.1 gm/dL (13.0-17.5); Hypochromasia Slight; MCH 29.6 pg (25.0-35.0); MCHC 32.3 g/dL (31.0-37.0); MCV 91.6 fL (80.0-100.0); Mean Platelet Volume 11.3; Platelet Count 171 k/uL (150-450); RBC 2.39 m/uL (4.30-5.90); RDW 13.9 % (11.5-15.5); WBC 17.6 k/uL (3.8-10.6)
[2024-08-13 19:11] LABS: Glucose,Whole Blood 170 mg/dL (70-110)
[2024-08-13 20:05] LABS: Histoplasma Abs by Mycelia, CF <1:8 (<1:8)
[2024-08-13 20:15] LABS: Glucose,Whole Blood 148 mg/dL (70-110)
--- NOTE | 2024-08-13 20:24 | P.PN ---
Progress Note - Text Progress Note Date: 08/13/24 Patient is a 64-year-old male with a PMH of atrial fibrillation on Eliquis, COPD on 2 L home oxygen, [id number] diabetes mellitus, hyperlipidemia, hypertension presenting with shortness of breath. Patient was previously admitted here for acute hypoxic respiratory failure secondary to influenza pneumonia and was discharged on 2 L of home oxygen. Patient states he has been feeling short of breath while at rest. He reports that since being discharged the home oxygen has not been sufficient. He states that he had to keep increasing his oxygen. Patient says shortness of breath is slightly relieved when he is laying down. Denies any orthopnea or PND. Patient endorses a nonpr oductive cough that is chronic in nature, but says it has been getting worse. Patient admits to having fever, chills. Patient also admits to having non- radiating, pressure-like chest pain over the last few days. Chest pain is not related to exertion and he had no alleviating or aggravating factors. Patient denies any headache, vision changes, nausea, vomiting, diarrhea, abdominal pain, urinary symptoms. EKG independently interpreted displaying sinus rhythm with left bundle branch block that has been seen on prior EKG, rate 65 bpm, QTc 451 ms CXR independently interpreted displaying bilateral multifocal airspace opacities Chest CTA displaying acute segmental and subsegmental pulmonary emboli within the right and middle lower lobes, no saddle embolus, no RV strain, chronic interstitial loading disease Venous Doppler B/L LE displaying no evidence of acute DVT Troponin 0.049, 0.055, proBNP 8810, D-dimer 4.87, WBC 22.6, Hgb 11.0, HCT 35.2, MCV 93.7, platelet 322, PT 11.8, INR 1.1, APTT 28, sodium 133, potassium 4.2, CO2 24, BUN 30, creatinine 1.27, glucose 135 VBG pH 7.52, pCO2 32 T98.2 F, HI 80, RR 26, BP 163/77, O2 sat 90% on BiPAP with FiO2 of 100% August 05: Overflow the ER. Up in the bed. Short of breath. Patient was on BiPAP overnight. This morning on 15 L high flow nasal cannula. Decreased appetite. Has got a cough. Some wheezing. Some sputum production. Decreased appetite. Patient is on IV heparin. Also on IV cefepime. Pulmonary following August 06: Patient did confirm that because Eliquis is very expensive patient was not taking it properly did and take it sparingly at home. Explains patient's PE. Started on Eliquis today by cardiology. IV heparin discontinued. Getting easily short of breath. Requiring BiPAP.. Some cough. Oral intake fair. On IV cefepime and vancomycin. ID following. Also on IV Lasix. Due to worsening renal function will DC vancomycin August 07: Saw this afternoon. On BiPAP. 60%. Ensure ordered. All blood work ordered by pulmonary including fungal. Patient currently on IV cefepime and Levaquin. IV Solu-Medrol. Remain short of breath. Tired. Being followed by pulmonary and ID. Chest x-ray film personally reviewed by me-showing pulm edema bilateral infiltrates especially at the bases. Renal ultrasound nonspecific. UA showing protein 1+. August 08: Remain short of breath. Sitting up in bed. Not able to come off the BiPAP. Remains on IV cefepime. Accu-Cheks running high. Put on insulin drip. On IV Solu-Medrol. Oral intake fair. August 09: Patient remains short of breath. Unable to get off BiPAP. FiO2 increased to 70%. 04/30. Per Dr. Goode: Patient be moved to the ICU. Poor oral intake. Remains on insulin drip. IV Solu-Medrol. Eliquis. IV cefepime and Levaquin. Tired. Sitting up in bed leaning forward short of breath. Chest x-ray film personally reviewed by me: Scattered bilateral infiltrates August 10: ICU. Remains on BiPAP. Decreased oral intake. Sitting up. Short of breath. On IV cefepime. Insulin drip. IV Solu-Medrol. DuoNeb Q4. Rather tired. Also yesterday evening at epistaxis. Nasal packing. August 11: ICU. Mostly been on BiPAP. High flow nasal cannula. Decreased oral intake. Sitting up leaning forward. Remains on IV cefepime or Levaquin insulin drip. A bit tired. Patient has very poor oral intake. Per forming machine tender patient will IV Lasix. Note worsening renal function-cut back to Lasix once a day. Given blood pressure running lower side. DC Aldactone and DC amlodipine. August 12: ICU. Patient was taken off BiPAP this morning. Decreased to high flow nasal cannula 10 L. at the bedside. Encourage oral intake. Chopped diet. Per forming machine tender nephrology patient to continue on IV Lasix. Blood pressure better after stopping amlodipine and Aldactone yesterday. Encourage oral intake. Incentive spirometry. IV cefepime, Levaquin, I terconazole per ID. Large 28: ICU. Yesterday patient was nasal cannula. Overnight repeat put back on BiPAP. Patient did drop his hemoglobin further. Down to 6.2. [place] to be from epistaxis. Given a unit of blood. Further increase in BUN/creatinine. Remains on IV Lasix. Ordered Kerlix to both the lower extremities. Had a good portion of his lunch today. Active Medications Albuterol/Ipratropium (Ipratropium-Albuterol 3 Ml Neb) 3 ml INHALATION RT-QID PRN PRN Reason: Shortness Of Breath Or Wheezing Albuterol/Ipratropium (Ipratropium-Albuterol 3 Ml Neb) 3 ml INHALATION RT-Q4H [facility] Last Admin: 08/13/24 20:02 Dose: 3 ml Alprazolam (Alprazolam 0.5 Mg Tab) 0.5 mg PO TID PRN PRN Reason: Anxiety Last Admin: 08/13/24 20:02 Dose: 0.5 mg Aspirin (Aspirin 81 Mg) 81 mg PO DAILY [facility] Last Admin: 08/13/24 09:26 Dose: 81 mg Budesonide (Budesonide 1 Mg/2 Ml Nebu) 1 mg INHALATION RT-BID [facility] Last Admin: 08/13/24 20:02 Dose: 1 mg Dextrose/Water (Dextrose 50% Syringe 50 Ml) 25 ml IVP PER PROTOCOL PRN; Protocol PRN Reason: Hypoglycemia Dextrose/Water (Dextrose 50% Syringe 50 Ml) 50 ml IVP PER PROTOCOL PRN; Protocol PRN Reason: Hypoglycemia Formoterol Fumarate (Formoterol Fumarate 20 Mcg/2 Ml Nebu) 20 mcg INHALATION RT-BID [facility] Last Admin: 08/13/24 20:02 Dose: 20 mcg Furosemide (Furosemide 10 Mg/Ml 4 Ml Vial) 40 mg IV Q12HR [facility] Last Admin: 08/13/24 20:01 Dose: 40 mg Cefepime HCl 2 gm/ Sodium (Chloride) 100 mls @ 25 mls/hr IVPB Q12H [facility]; Protocol Last Admin: 08/13/24 09:41 Dose: 25 mls/hr Insulin Human Regular 100 unit (/ Sodium Chloride) 100 mls @ 0 mls/hr IV .Q0M [facility]; Protocol Last Titration: 08/13/24 19:10 Dose: 4.6 units/hr, 4.6 mls/hr Itraconazole (Itraconazole 100 Mg Cap) 200 mg PO BID [facility]; Protocol Last Admin: 08/13/24 20:01 Dose: 200 mg Lorazepam (Lorazepam 1 Mg Tab) 1 mg PO HS PRN PRN Reason: Anxiety Last Admin: 08/12/24 20:45 Dose: 1 mg Methylprednisolone Sodium Succinate (Methylprednisolone Sod Succi 125 Mg/2 Ml Vial) 60 mg IV Q8H [facility] Last Admin: 08/13/24 19:10 Dose: 60 mg Metoprolol Succinate (Metoprolol Succinate (Er) 25 Mg Tab.Er.24h) 25 mg PO DAILY [facility] Last Admin: 08/13/24 09:26 Dose: 25 mg Morphine Sulfate (Morphine Sulfate 4 Mg/Ml Syringe) 4 mg IV Q4HR PRN PRN Reason: Severe Pain (Scale 7 to 10) Last Admin: 08/13/24 17:35 Dose: 4 mg Naloxone HCl (Naloxone 0.4 Mg/Ml 1 Ml Vial) 0.2 mg IV Q2M PRN PRN Reason: Opioid Reversal Ondansetron HCl (Ondansetron 4 Mg/2 Ml Vial) 4 mg IVP Q8HR PRN PRN Reason: Nausea And Vomiting Last Admin: 08/07/24 14:52 Dose: 4 mg Oxymetazoline HCl (Oxymetazoline 0.05% Nasl [place] 1 [place] Bottle) 2 spray NASAL BID [facility] Last Admin: 08/13/24 20:02 Dose: 2 spray Pantoprazole Sodium (Pantoprazole 40 Mg Tablet) 40 mg PO AC-BRKFST [facility] Last Admin: 08/13/24 09:26 Dose: 40 mg Sodium Chloride (Sodium Chloride 0.65% Nasal [place] 44 Ml Btl) 2 spray NASAL QID PRN PRN Reason: Dry Nasal Passages Social history: Tobacco: Current 30-fzse-xziu smoker Alcohol: Occasional alcohol use Recreational drugs: Marijuana Travel: No recent travel On examination: VITAL SIGNS: 96.7, 67, 21, 118 x 49, 98% on 12 L high flow GENERAL APPEARANCE: Reclining in bed, short of breath HEENT: Normal external appearance of nose and ear. Oral cavity normal EYES: Pupils equal. Conjunctiva normal. NECK: JVD unable to assess. Mass not palpable. RESPIRATORY: Respiratory effort increased, Lungs diminished breath sounds some scattered crackles prolonged expiration. CARDIOVASCULAR: First and second sounds normal. No edema. ABDOMEN: Soft. Liver and spleen not palpable. No tenderness. No mass palpable. PSYCHIATRY: Answering questions appropriately. A bit less tired INVESTIGATIONS, reviewed in the clinical context: August 13: Hemoglobin today down to 6.2.After unit of blood. Up to 7.1. BUN 139 creatinine 2.04 August 12: White count 18.1 hemoglobin 7 platelets 182 potassium 4.6 BUN 125 creatinine 2.28 August 11: White count 22.8 hemoglobin 7.4 platelets 200 sodium 130 potassium 4.2 BUN 117 creatinine 2.11 August 10: White count 21.7 hemoglobin 7.9 platelets 201 sodium 128 potassium 4.5 BUN 95 creatinine 1.97 16: White count 21.1 hemoglobin 9.1 platelets 245 potassium 4.2 BUN 68 creatinine 1.73 August 08: White count 8.2 hemoglobin 9.2 platelets 232 ABG: pH 7.3 pCO2 42 pO2 80 sodium 133 potassium 3.6 creatinine 1.69. Accu-Cheks high August 07: White count 20.8 hemoglobin 9.2 platelets 265 sodium 134 BUN 44 creatinine 1.54. Chest x-ray: Pulm edema/bilateral infiltrates August 06: Sodium 132 potassium 3.4 BUN 35 creatinine 1.51 August 05: White count 7.2 hemoglobin 10.3 platelets 242 sodium 136 potassium 3.8 BUN 28 creatinine 1.37 Troponin I: 0.049, 0.055, 0.051 Chest x-ray film personally reviewed by mn-bilateral infiltrates. Effusion/pulm edema cardiomegaly. Venous Doppler: No DVT Chest CTA: Acute segmental and subsegmental pulm embolism within the right middle and right lower lobes. No RV strain. Chronic interstitial lung disease. Previous labs: Creatinine 1.63 in October 2022 Assessment/Plan: #. Acute pulmonary embolism, non-massive [segmental and subsegmental within the right middle and lower lobes. No RV strain IV heparin, currently on o Eliquis #. Sepsis likely secondary to -viral pneumonia. Secondary bacterial component probable IV cefepime. Levaquin discontinued on August 12..-also has been on itraconazole started on the August 07 ID and pulmonary following #. Acute hypoxic respiratory failure, secondary to above: Slow to respond Was on BiPAP, back up to 15 L nasal cannula #. Acute COPD exacerbation, in a prior smoker: Some improvement DuoNeb Q4. IV Solu-Medrol 60 mg q8. Nebulized Pulmicort #. Acute on chronic heart failure with reduced ejection fraction (EF 45 to 50%): Some improvement IV Lasix 40 mg every 12. Aldactone-discontinued. #. Chronic hypoxic respiratory failure from underlying COPD, 2 L home O2 -Acute kidney injury, likely ATN multifactorial, worsening Admission creatinine 1.27. #. Bhb-xkhunoj-giykqwpfv type 2 diabetes, uncontrolled with hyperglycemia secondary steroids: Not improving Insulin subcu sliding scale. Stop Levemir. Currently on insulin drip y Accu-Cheks ACHS - chronic kidney disease stage III from nephrosclerosis and diabetic nephropathy [creatinine 1.63 in October 2022] Renal ultrasound.: Suboptimal study. No corticomedullary comment. UA protein 1+ -Recent influenza type A #. Essential hypertension- Toprol-XL. Other antihypertensives have been held #. Hyperlipidemia Lipitor -Full code Had a good lunch continue IV Lasix. Antibiotics per ID including cefepime, I terconazole, IV steroids. Bronchodilators. Past Medical History Past Medical History: Atrial Fibrillation, Diabetes Mellitus, Hyperlipidemia, Hypertension, Pneumonia, Supraventricular Tachycardia (SVT) Additional Past Medical History / Comment(s): a fib, causes shortness of breath, can feel irregular heartbeat History of Any Multi-Drug Resistant Organisms: None Reported Past Surgical History: Cholecystectomy, Heart Catheterization Additional Past Surgical History / Comment(s): Colonoscopy Past Anesthesia/Blood Transfusion Reactions: No Reported Reaction Past Psychological History: No Psychological Hx Reported Smoking Status: Current every day smoker Past Alcohol Use History: Occasional Past Drug Use History: Marijuana
[2024-08-13 21:23] LABS: Glucose,Whole Blood 151 mg/dL (70-110)
[2024-08-13 22:13] LABS: Glucose,Whole Blood 157 mg/dL (70-110)
[2024-08-13 23:35] LABS: Glucose,Whole Blood 139 mg/dL (70-110)
[2024-08-13 23:59] LABS: Glucose,Whole Blood 141 mg/dL (70-110)
[2024-08-14 01:10] LABS: Glucose,Whole Blood 197 mg/dL (70-110)
[2024-08-14 02:05] LABS: Glucose,Whole Blood 226 mg/dL (70-110)
[2024-08-14 03:11] LABS: Glucose,Whole Blood 236 mg/dL (70-110)
[2024-08-14 03:20] LABS: Hepatitis B Surface Antigen Nonreactive (Nonreactive)
[2024-08-14 03:21] LABS: Hepatitis B Surface AB- Quant 3.5 mIU/mL
[2024-08-14 03:40] LABS: Basophils % (A) 0 %; Eosinophils % (A) 0 %; HCT 21.5 % (39.0-53.0); HGB 7.1 gm/dL (13.0-17.5); Hypochromasia Slight; Lymphocytes # (A) 0.2 k/uL (1.0-4.8); Lymphocytes % (A) 1 %; MCH 30.5 pg (25.0-35.0); MCHC 33.1 g/dL (31.0-37.0); MCV 92.1 fL (80.0-100.0); Mean Platelet Volume 10.5; Monocytes # (A) 0.4 k/uL (0-1.0); Monocytes % (A) 2 %; Neutrophils # (A) 15.8 k/uL (1.3-7.7); Neutrophils % (A) 96 %; Platelet Count 160 k/uL (150-450); RBC 2.34 m/uL (4.30-5.90); RDW 13.8 % (11.5-15.5); WBC 16.5 k/uL (3.8-10.6)
[2024-08-14 03:49] LABS: African American GFR (CKD) 33 (>60 ml/min/1.73 sqM); Anion Gap 6 mmol/L; Calcium 8.7 mg/dL (8.4-10.2); Carbon Dioxide 25 mmol/L (22-30); Chloride 101 mmol/L (98-107); Glucose 188 mg/dL (74-99); Non-African American GFR(CKD) 28 (>60 ml/min/1.73 sqM); Potassium 4.4 mmol/L (3.5-5.1); Sodium 132 mmol/L (137-145)
[2024-08-14 03:54] LABS: Glucose,Whole Blood 237 mg/dL (70-110)
[2024-08-14 03:58] LABS: Blood Urea Nitrogen 123 mg/dL (9-20)
[2024-08-14 05:29] LABS: Glucose,Whole Blood 217 mg/dL (70-110)
[2024-08-14 06:15] LABS: Glucose,Whole Blood 193 mg/dL (70-110)
--- NOTE | 2024-08-14 06:59 | XR ---
EXAM: XR Chest, 1 View CLINICAL HISTORY: ITS.REASON XR Reason: BiPap/Flu A/Pneumonia/COPD TECHNIQUE: Frontal view of the chest. COMPARISON: X-ray dated 08/12/2024. FINDINGS: Lungs: Stable opacification of the bilateral mid to lower lungs. Pleural space: Bilateral pleural effusions. No pneumothorax. Heart: Moderate enlargement of the cardiac silhouette. Mediastinum: Unremarkable. Normal mediastinal contour. Bones/joints: Degenerative changes are seen in the spine and shoulders. No acute fracture. Vasculature: Calcifications overlie the aorta. IMPRESSION: Stable chest.
[2024-08-14 07:02] LABS: Glucose,Whole Blood 192 mg/dL (70-110)
[2024-08-14 08:44] LABS: Glucose,Whole Blood 125 mg/dL (70-110)
[2024-08-14 09:30] LABS: Glucose,Whole Blood 243 mg/dL (70-110)
[2024-08-14 10:25] LABS: Glucose,Whole Blood 247 mg/dL (70-110)
[2024-08-14 12:24] LABS: Glucose,Whole Blood 305 mg/dL (70-110)
--- NOTE | 2024-08-14 12:57 | P.PN ---
Subjective Progress Note Date: 08/14/24 Principal diagnosis: Acute on chronic hypoxic respiratory failure, multifactorial Patient is a 64-year-old male with past medical history significant for atrial fibrillation, diabetes mellitus, CKD stage III, hypertension, hyperlipidemia, tobacco smoker. Of note, recently had a prolonged hospitalization 07/19/2024 through 07/31/2024. Treated for combination of influenza A, pneumonia, CHF. Completed course of antibiotics and Tamiflu. At this time, did require noninvasive BiPAP, eventually discharged on home O2. Returns with a chief complaint of shortness of breath progressing over the last 2 to 3 days. Also, reports sudden onset substernal chest pain that developed the night prior and has been persistent. On arrival to the ED, found to be in some respiratory distress, and placed on BiPAP. Workup in the emergency department including a chest x-ray showing multifocal infiltrates concerning for pneumonia or pulmonary edema. D-dimer was elevated in setting CT angio protocol which was positive for segmental and subsegmental right middle lobe and right lower lobe pulmonary emboli. No saddle pulmonary embolus. Pulmonary artery mildly enlarged. Preserved RV to LV ratio. There were diffuse coarse reticular infiltrates, as well as, groundglass lung attenuation, cystic changes, with concerns for interstitial lung disease. Patient does take Eliquis for his history of atrial fibrillation. Does state he has missed some doses lately. CBC: WBC count 22.6, hemoglobin 11, platelets 322. CMP: Sodium 133, potassium 4.2, chloride 101, serum bicarb 24, BUN 30, creatinine 1.27, glucose 135. Lactic 1.5. VBG with a pH of 7.5 and pCO2 of 32. EKG: Sinus rhythm, rate 65 bpm, left bundle branch block, not acute. Elevated serial troponins 0.049 and 0.055 respectively. NT proBNP elevated 8807. Patient is currently being evaluated in the emergency department. He is alert and some moderate respiratory distress. On BiPAP with settings 12/5 and FiO2 60%. Tachypneic, breathing around 40 breaths/min. Endorses progressive worsening difficulty in breathing over last couple days. He has tried to increase his supplemental oxygen at home without any relief. Denies previous history of DVT or PE. Associated nonproductive cough. Denies sputum production or hemoptysis. Substernal nonradiating chest pain persist. Denies any fevers or chills. Denies heart palpitations or syncopal events. Denies swelling in the lower extremities. Heart rhythm is normal sinus on bedside monitor. Blood pressure has been normotensive, did receive 2 L of crystalloid fluid bolus earlier. Not requiring any vasopressors. Normal saline is infusing at 150 mL/h. IV heparin infusing per protocol 08/06/2024, the patient is being seen for a follow-up. The patient is alternating between BiPAP at a pressure of 12/5 with an FiO2 of 60% and 15 L of oxygen by nasal cannula. He is getting slightly anxious and the patient is being provided Xanax accordingly. Fluid balance is -1.1 L over the past 24 hours. Limited echocardiogram was also done and it showed preserved LV function with an EF of around 55 to 60%. Valvular functions could not be accurately assessed as the patient's study was technically difficult study. There was however RV dilatation. Unable to estimate RV pressures. The electrolytes from today showed a creatinine of 1.5 with a BUN of 35. Bicarb is at 21. Sodium is at 132. The patient remains on DuoNeb updrafts. The patient remains on a combination of cefepime and vancomycin. The patient was taken off the IV hep lizzette and the patient was started on anticoagulation with Eliquis. Remains on IV Solu-Medrol 60 mg every 6 hours. Remains on Aldactone. Remains on IV Lasix 40 mg every 12 hours. On today's evaluation of 08/07/2024, the patient is overall condition is essentially unchanged. Continues to be hypoxic, continues to be on BiPAP and the patient remains at a pressure of 12/5 with an FiO2 of 60%. Continues to have crackles in lung base bilaterally. White cell count remains elevated at 20 with a hemoglobin 9.2. Very much BiPAP dependent as the patient desaturates once taken off the BiPAP. BUN is 44 with a platelet of 1.5. Sodium levels at 134 and a potassium level is at 3.4. Remains on DuoNeb updrafts. Remains on IV Lasix 40 mg every 12 hours. Remains on Aldactone. Remains on bronchodilators. Remains on steroids. Empiric antibiotic coverage with IV cefepime. Reviewed the CAT scan again and there is some chronic interstitial changes and the patient has diffuse infiltrates with areas of groundglass. Consider acute interstitial pneumonias. Consider fungal pneumonias. On today's evaluation of 08/08/2024, the patient is feeling slightly better compared to yesterday. The patient is off the BiPAP and the patient is currently on 15 L of oxygen by nasal cannula. Remains on bronchodilators. Remains on IV Solu-Medrol. Remains on IV Lasix. Antibiotic coverage including combination of cefepime, Levaquin orally and itraconazole orally. Fungal antibodies are still pending. Meanwhile, rheumatologic profile showed a negative rheumatoid factor and negative MARISA. Legionella urine antigen is still pending for now. Clinically however, the patient is feeling slightly improved compared to yesterday. His chest x-ray continues to show multifocal airspace disease more so in the right lung. Fluid balance has been negative. The patient's creatinine is currently at 1.6 with a BUN of 54 and a sodium levels at 133. I am going to taper the steroids. The white cell count is 18.2 with a hemoglobin of 9.2. On 08/09/2024, the patient is transferred to the intensive care unit for closer monitoring. As mentioned, the patient developed acute hypoxic respiratory failure with diffuse bilateral pulmonary filtrates discussed earlier. The patient was able to tolerate Airvo, however, overnight, the patient developed epistaxis. Therefore was discontinued the patient was placed back on BiPAP and his current BiPAP is running at a pressure of 12 over 5 cm of water with an FiO2 of 80%. The patient seems to be quite dependent on the BiPAP. Unable to drop the FiO2 any further. Repeat chest x-ray was done and shows stable diffuse bilateral pulm infiltrates which remains essentially unchanged compared to yesterday. Clinically, the patient is awake and alert. He is reported to have some congested cough. No significant sputum production. No chest pain. No hemoptysis. Noted, over the past 48 hours, the patient was diuresed with IV Lasix. Nevertheless, we have not seen any improvement in the patient's oxygenation. The patient was negative fluid balance. His BNP today is at 68 with a creatinine of 1.7. Based on that, I stopped diuretics. Rest of the electrolytes are all within normal limits. White cell count of 21 with a hemoglobin 9.1 and a platelet count of 245. The patient remains on broad- spectrum antibiotics. The patient remains on IV cefepime, itraconazole and Levaquin. Fungal antibodies are still pending for now. MARISA and rheumatoid factor were both negative. Legionella urine antigen was also negative. The patient remains on anticoagulation and I am going to drop the Eliquis dose to 5 mg p.o. twice a day. I am not absolutely convinced that the patient has a pulmonary embolism. I reviewed the CAT scan of the chest and there could be potentially some subsegmental filling defects in the right, however, the overall contrast administration was essentially poor. The patient will be monitored very closely in the intensive care unit. On a separate note, the patient was started on insulin drip for blood sugar control. Patient was seen today on 08/10/2024, remains in the ICU, remains on fluid restrictions for low sodium of 128, he is on BiPAP 12/60%, patient is presenting this time very much similar to his last presentation few weeks ago. I am familiar with this patient, and on his last admission patient responded to treatment with mostly diuretics, and steroids. This time came back with a similar presentation, he is receiving diuretics, but has been on hold for the last 24 hours, and I recommended we go back on Lasix 40 mg IV push every 12 hours, patient is receiving Solu-Medrol at 60 mg IV push every 8 hours, he is also on Levaquin's, cefepime, and he is marginal at best. In addition to this the patient had non-ST elevation myocardial infarction and flu/influenza A back on 08/04. Blood cultures have been negative, patient has leukocytosis with WBC count of 21.7 hemoglobin is 7.9. Creatinine has been slightly rising 1.51 on admission which is about his baseline, today his creatinine is 1.97 with a BUN of 95. Legionella antigen has been negative MARISA screen has been negative rheumatoid factor is negative patient continues to complain of shortness of breath, intermittent cough, and wheezing. Patient was seen today on 08/11/2024, remains in the ICU, remains on BiPAP, patient is down on FiO2 to 50%, so he is on BiPAP 12//50%. Clinically the patient is feeling better breathing easier, remains on empiric antibiotics including cefepime and Levaquin remains on Lasix 40 mg every 12 hours remains on steroids, and today I have noticed probably minimal improvement in his chest x- ray findings. Hence we will continue the same and will make Lasix 40 mg twice daily instead of 40 mg daily. WBC count is 22.8 hemoglobin 7.4 electrolytes are normal BUN is 117 creatinine 2.11 Patient was seen today on 08/12/2024, patient is feeling better today, remains on BiPAP, however he is down to 40%, chest x-ray is showing definite improvement in comparison to previous x-rays of the chest. Patient remains on diuretics r emains on antibiotics and remains on steroids, hence I have no plans to cut down on his diuretics at this point specially with his improvement clinically and improvement noted on the chest x-ray. As a matter fact I was able to discontinue BiPAP, and I placed the patient on a high flow nasal cannula 10 L and he is saturating anywhere between 97 to 99%. Creatinine is noted to be a bit higher today 2.28, his BUN is 125, his WBC count remains elevated at 18.1, hemoglobin is 7. Patient remains quite edematous, and he remains on diuretics in the form of Lasix and Aldactone. Patient was seen today on 08/13/2024, basically about the same, hemoglobin is low and the patient will receive 1 unit of packed RBCs today. Last night he had to go back on BiPAP, although he was tried on high flow nasal cannula throughout the day yesterday, Desaturating and kept getting anxious and agitated, then he w as placed on BiPAP overnight, and he remains on BiPAP 12/5/50%. Hemoglobin today is 6.2, had some recommending at least a unit of packed RBCs. Chest x-ray continues to show bilateral interstitial edema/infiltrates. Patient remains on cefepime, IV fluids at KVO, remains on diuretics. Renal functioning is holding and not showing any significant change. Seen today on 08/14/2024, patient was on BiPAP at night, however earlier this morning he was placed down to 8 L high flow nasal cannula. Saturating at 93 to 95%. He was on BiPAP 12/5/50% last time. Remains on Lasix 40 mg IV push twice daily remains on Solu-Medrol 60 every 6 remains on cefepime. Patient has been on Sporanox. Some improvement today compared to the last few days, no chest x- ray was done, but the patient seems to be more comfortable on high flow nasal cannula compared to BiPAP. Continues to have leukocytosis but improving with WBC of 16.5 electrolytes are normal bicarb is normal BUN is 123 creatinine 2.33 blood sugar is 305. Objective - Vital Signs Vital signs: Vital Signs Temp 97.0 F L 08/14/24 09:00 Pulse 80 08/14/24 11:52 Resp 11 L 08/14/24 11:00 BP 133/59 08/14/24 11:00 Pulse Ox 94 L 08/14/24 11:00 FiO2 50 08/13/24 20:00 Intake & Output 08/13/24 08/14/24 08/14/24 18:59 06:59 18:59 Intake Total 1640.460 299.806 0106.424 Output Total 1850 1250 550 Balance -209.540 -1029.079 876.424 Weight 100.3 kg 100.3 kg Intake: IV 280 170 70 .9 80 170 70 Cefepime 2 gm In Sodium 200 Chloride 0.9% 100 ml @ 25 mls/hr IVPB Q12H [facility] Rx# :[id number] Intake, IV Titration 80.460 50.921 136.424 Amount Cefepime 2 gm In Sodium 100 Chloride 0.9% 100 ml @ 25 mls/hr IVPB Q12H [facility] Rx# :[id number] Insulin Regular 100 unit 80.460 50.921 36.424 In Sodium Chloride 0.9% 100 ml @ Titrate IV .Q0M [facility] Rx#:[id number] Oral 970 1220 Blood Product 310 Rc As-1 Unit 310 [id number] Output: Urine 1850 1250 550 Other: Voiding Method External Catheter External Catheter - Exam GENERAL EXAM: 64-year-old white male obese , on 8 L high flow nasal cannula HEAD: Normocephalic and atraumatic EYES: Normal reaction of pupils, equal size. NOSE: No evidence of epistaxis. THROAT: No erythema or exudates. NECK: No masses, no JVD. CHEST: No chest wall deformity. LUNGS: Symmetrical chest expansion, crackles at the bases persist. CVS: S1 and S2 normal with soft systolic murmur, regular rhythm. No other extra heart sounds ABDOMEN: No hepatosplenomegaly, active bowel sounds, no guarding or rigidity. SKIN: No rashes CENTRAL NERVOUS SYSTEM: Alert oriented x 3 no gross focal deficit EXTREMITIES: 2+ bipedal edema, good pulses bilaterally. - Labs CBC & Chem 7: 08/14/24 03:26 08/14/24 03:26 Labs: Abnormal Lab Results - Last 24 Hours (Table) 08/12/24 08/13/24 08/13/24 Range/Units 02:34 14:24 16:38 WBC (3.8-10.6) k/uL RBC (4.30-5.90) m/uL Hgb (13.0-17.5) gm/dL Hct (39.0-53.0) % Neutrophils # (1.3-7.7) k/uL Lymphocytes # (1.0-4.8) k/uL Sodium (137-145) mmol/L BUN (9-20) mg/dL Creatinine (0.66-1.25) mg/dL Glucose (74-99) mg/dL POC Glucose (mg/dL) 125 H 257 H 260 H (70-110) mg/dL 08/13/24 08/13/24 08/13/24 Range/Units 17:38 18:07 19:09 WBC 17.6 H (3.8-10.6) k/uL RBC 2.39 L (4.30-5.90) m/uL Hgb 7.1 L (13.0-17.5) gm/dL Hct 21.9 L (39.0-53.0) % Neutrophils # (1.3-7.7) k/uL Lymphocytes # (1.0-4.8) k/uL Sodium (137-145) mmol/L BUN (9-20) mg/dL Creatinine (0.66-1.25) mg/dL Glucose (74-99) mg/dL POC Glucose (mg/dL) 248 H 170 H (70-110) mg/dL 08/13/24 08/13/24 08/13/24 Range/Units 20:14 21:22 22:12 WBC (3.8-10.6) k/uL RBC (4.30-5.90) m/uL Hgb (13.0-17.5) gm/dL Hct (39.0-53.0) % Neutrophils # (1.3-7.7) k/uL Lymphocytes # (1.0-4.8) k/uL Sodium (137-145) mmol/L BUN (9-20) mg/dL Creatinine (0.66-1.25) mg/dL Glucose (74-99) mg/dL POC Glucose (mg/dL) 148 H 151 H 157 H (70-110) mg/dL 08/13/24 08/13/24 08/14/24 Range/Units 23:32 23:58 01:09 WBC (3.8-10.6) k/uL RBC (4.30-5.90) m/uL Hgb (13.0-17.5) gm/dL Hct (39.0-53.0) % Neutrophils # (1.3-7.7) k/uL Lymphocytes # (1.0-4.8) k/uL Sodium (137-145) mmol/L BUN (9-20) mg/dL Creatinine (0.66-1.25) mg/dL Glucose (74-99) mg/dL POC Glucose (mg/dL) 139 H 141 H 197 H (70-110) mg/dL 08/14/24 08/14/24 08/14/24 Range/Units 02:03 03:09 03:26 WBC 16.5 H (3.8-10.6) k/uL RBC 2.34 L (4.30-5.90) m/uL Hgb 7.1 L (13.0-17.5) gm/dL Hct 21.5 L (39.0-53.0) % Neutrophils # 15.8 H (1.3-7.7) k/uL Lymphocytes # 0.2 L (1.0-4.8) k/uL Sodium (137-145) mmol/L BUN (9-20) mg/dL Creatinine (0.66-1.25) mg/dL Glucose (74-99) mg/dL POC Glucose (mg/dL) 226 H 236 H (70-110) mg/dL 08/14/24 08/14/24 08/14/24 Range/Units 03:26 03:53 05:27 WBC (3.8-10.6) k/uL RBC (4.30-5.90) m/uL Hgb (13.0-17.5) gm/dL Hct (39.0-53.0) % Neutrophils # (1.3-7.7) k/uL Lymphocytes # (1.0-4.8) k/uL Sodium 132 L (137-145) mmol/L BUN 123 H* (9-20) mg/dL Creatinine 2.33 H (0.66-1.25) mg/dL Glucose 188 H (74-99) mg/dL POC Glucose (mg/dL) 237 H 217 H (70-110) mg/dL 08/14/24 08/14/24 08/14/24 Range/Units 06:14 07:01 09:28 WBC (3.8-10.6) k/uL RBC (4.30-5.90) m/uL Hgb (13.0-17.5) gm/dL Hct (39.0-53.0) % Neutrophils # (1.3-7.7) k/uL Lymphocytes # (1.0-4.8) k/uL Sodium (137-145) mmol/L BUN (9-20) mg/dL Creatinine (0.66-1.25) mg/dL Glucose (74-99) mg/dL POC Glucose (mg/dL) 193 H 192 H 243 H (70-110) mg/dL 08/14/24 08/14/24 Range/Units 10:24 12:22 WBC (3.8-10.6) k/uL RBC (4.30-5.90) m/uL Hgb (13.0-17.5) gm/dL Hct (39.0-53.0) % Neutrophils # (1.3-7.7) k/uL Lymphocytes # (1.0-4.8) k/uL Sodium (137-145) mmol/L BUN (9-20) mg/dL Creatinine (0.66-1.25) mg/dL Glucose (74-99) mg/dL POC Glucose (mg/dL) 247 H 305 H (70-110) mg/dL Assessment and Plan Assessment: Impression: Acute on chronic hypoxic respiratory failure, multifactorial, I suspect this is mostly a picture of pulmonary edema, underlying pneumonia is not entirely ruled out. Hence the patient will remain on antibiotics and diuretics. Acute exacerbation of chronic systolic congestive heart failure, recent echocardiogram from 07/20/2024 estimating a left ventricular ejection fraction of 45 to 50%, moderate pulmonary hypertension, and moderate tricuspid regurgitation. Repeat echocardiogram showed improvement in LV function with ejection fraction 55% Acute leukocytosis Acute on chronic kidney disease Recent influenza A infection History of atrial fibrillation with previous cardioversion History of underlying COPD and chronic tobacco dependence Benign essential hypertension Type 2 diabetes Acute on chronic anemia patient will require a unit of packed RBCs to be transfused today. And will continue to monitor for any blood loss specially GI blood losses. Recommendation: Continue high flow nasal cannula Continue to monitor hemoglobin patient received a unit of packed RBCs yesterday, hemoglobin today is marginal if drops down below 7 we will give him another unit of packed RBCs tomorrow Continue bronchodilators Continue diuretics Continue Solu-Medrol, however I will cut down the dose to 40 mg IV push every 8 hours since the patient is having significant hyperglycemia episodes Continue empiric antibiotics and antifungal patient is on cefepime and Levaquin and itraconazole Continue to monitor in the ICU for now. Remains quite ill, prognosis remains guarded. Eventually will plan to transfer the patient to LTAC. However clinically he is not ready for this yet Will continue to follow C Time with Patient: Less than 30
[2024-08-14 13:34] LABS: Glucose,Whole Blood 302 mg/dL (70-110)
[2024-08-14] MEDS ORDERED: ARTIFICIAL TEARS-HYPROMELLOSE DROPS 15 ML BTL BOTH EYES PRN (13:35)
--- NOTE | 2024-08-14 14:33 | P.PN ---
Subjective Progress Note Date: 08/14/24 Principal diagnosis: Reason for follow-up is pneumonia Patient is a 64-year-old male with a past medical history significant for diabetes mellitus hypertension hyperlipidemia pneumonia atrial fibrillation currently everyday smoker presenting to the hospital for evaluation of increasing shortness of breath patient has been diagnosed with multifocal pneumonia prompting this consultation. On today's evaluation that is 08/14/2024, the patient continues to be afebrile, the patient is on 15 L high flow nasal oxygen and mention breathing slightly comfortably denies any chest pain worsening complaints preparation abdominal pain or diarrhea. Patient white count is 16.5, creatinine is 2.33 Objective - Vital Signs Vital signs: Vital Signs Temp 97.0 F L 08/14/24 09:00 Pulse 80 08/14/24 11:52 Resp 11 L 08/14/24 11:00 BP 133/59 08/14/24 11:00 Pulse Ox 94 L 08/14/24 11:00 FiO2 50 08/13/24 20:00 Intake & Output 08/13/24 08/14/24 08/14/24 18:59 06:59 18:59 Intake Total 1640.460 585.479 0752.424 Output Total 1850 1250 550 Balance -209.540 -1029.079 876.424 Weight 100.3 kg 100.3 kg Intake: IV 280 170 70 .9 80 170 70 Cefepime 2 gm In Sodium 200 Chloride 0.9% 100 ml @ 25 mls/hr IVPB Q12H [facility] Rx# :[id number] Intake, IV Titration 80.460 50.921 136.424 Amount Cefepime 2 gm In Sodium 100 Chloride 0.9% 100 ml @ 25 mls/hr IVPB Q12H [facility] Rx# :[id number] Insulin Regular 100 unit 80.460 50.921 36.424 In Sodium Chloride 0.9% 100 ml @ Titrate IV .Q0M [facility] Rx#:[id number] Oral 970 1220 Blood Product 310 Rc As-1 Unit 310 [id number] Output: Urine 1850 1250 550 Other: Voiding Method External Catheter External Catheter - Exam GENERAL DESCRIPTION: An elderly male lying in bed in no distress RESPIRATORY SYSTEM: Unlabored breathing , coarse breath sounds bilaterally HEART: S1 S2 regular rate and rhythm , ABDOMEN: Soft , no tenderness EXTREMITIES: No edema feet - Labs CBC & Chem 7: 08/14/24 03:26 08/14/24 03:26 Labs: Abnormal Lab Results - Last 24 Hours (Table) 08/12/24 08/13/24 08/13/24 Range/Units 02:34 14:24 16:38 WBC (3.8-10.6) k/uL RBC (4.30-5.90) m/uL Hgb (13.0-17.5) gm/dL Hct (39.0-53.0) % Neutrophils # (1.3-7.7) k/uL Lymphocytes # (1.0-4.8) k/uL Sodium (137-145) mmol/L BUN (9-20) mg/dL Creatinine (0.66-1.25) mg/dL Glucose (74-99) mg/dL POC Glucose (mg/dL) 125 H 257 H 260 H (70-110) mg/dL 08/13/24 08/13/24 08/13/24 Range/Units 17:38 18:07 19:09 WBC 17.6 H (3.8-10.6) k/uL RBC 2.39 L (4.30-5.90) m/uL Hgb 7.1 L (13.0-17.5) gm/dL Hct 21.9 L (39.0-53.0) % Neutrophils # (1.3-7.7) k/uL Lymphocytes # (1.0-4.8) k/uL Sodium (137-145) mmol/L BUN (9-20) mg/dL Creatinine (0.66-1.25) mg/dL Glucose (74-99) mg/dL POC Glucose (mg/dL) 248 H 170 H (70-110) mg/dL 08/13/24 08/13/24 08/13/24 Range/Units 20:14 21:22 22:12 WBC (3.8-10.6) k/uL RBC (4.30-5.90) m/uL Hgb (13.0-17.5) gm/dL Hct (39.0-53.0) % Neutrophils # (1.3-7.7) k/uL Lymphocytes # (1.0-4.8) k/uL Sodium (137-145) mmol/L BUN (9-20) mg/dL Creatinine (0.66-1.25) mg/dL Glucose (74-99) mg/dL POC Glucose (mg/dL) 148 H 151 H 157 H (70-110) mg/dL 08/13/24 08/13/24 08/14/24 Range/Units 23:32 23:58 01:09 WBC (3.8-10.6) k/uL RBC (4.30-5.90) m/uL Hgb (13.0-17.5) gm/dL Hct (39.0-53.0) % Neutrophils # (1.3-7.7) k/uL Lymphocytes # (1.0-4.8) k/uL Sodium (137-145) mmol/L BUN (9-20) mg/dL Creatinine (0.66-1.25) mg/dL Glucose (74-99) mg/dL POC Glucose (mg/dL) 139 H 141 H 197 H (70-110) mg/dL 08/14/24 08/14/24 08/14/24 Range/Units 02:03 03:09 03:26 WBC 16.5 H (3.8-10.6) k/uL RBC 2.34 L (4.30-5.90) m/uL Hgb 7.1 L (13.0-17.5) gm/dL Hct 21.5 L (39.0-53.0) % Neutrophils # 15.8 H (1.3-7.7) k/uL Lymphocytes # 0.2 L (1.0-4.8) k/uL Sodium (137-145) mmol/L BUN (9-20) mg/dL Creatinine (0.66-1.25) mg/dL Glucose (74-99) mg/dL POC Glucose (mg/dL) 226 H 236 H (70-110) mg/dL 08/14/24 08/14/24 08/14/24 Range/Units 03:26 03:53 05:27 WBC (3.8-10.6) k/uL RBC (4.30-5.90) m/uL Hgb (13.0-17.5) gm/dL Hct (39.0-53.0) % Neutrophils # (1.3-7.7) k/uL Lymphocytes # (1.0-4.8) k/uL Sodium 132 L (137-145) mmol/L BUN 123 H* (9-20) mg/dL Creatinine 2.33 H (0.66-1.25) mg/dL Glucose 188 H (74-99) mg/dL POC Glucose (mg/dL) 237 H 217 H (70-110) mg/dL 08/14/24 08/14/24 08/14/24 Range/Units 06:14 07:01 09:28 WBC (3.8-10.6) k/uL RBC (4.30-5.90) m/uL Hgb (13.0-17.5) gm/dL Hct (39.0-53.0) % Neutrophils # (1.3-7.7) k/uL Lymphocytes # (1.0-4.8) k/uL Sodium (137-145) mmol/L BUN (9-20) mg/dL Creatinine (0.66-1.25) mg/dL Glucose (74-99) mg/dL POC Glucose (mg/dL) 193 H 192 H 243 H (70-110) mg/dL 08/14/24 08/14/24 Range/Units 10:24 12:22 WBC (3.8-10.6) k/uL RBC (4.30-5.90) m/uL Hgb (13.0-17.5) gm/dL Hct (39.0-53.0) % Neutrophils # (1.3-7.7) k/uL Lymphocytes # (1.0-4.8) k/uL Sodium (137-145) mmol/L BUN (9-20) mg/dL Creatinine (0.66-1.25) mg/dL Glucose (74-99) mg/dL POC Glucose (mg/dL) 247 H 305 H (70-110) mg/dL Assessment and Plan (1) Leukocytosis Current Visit: Yes Status: Acute Code(s): D72.829 - ELEVATED WHITE BLOOD CELL COUNT, UNSPECIFIED SNOMED Code(s): 649600930 (2) Bilateral pneumonia Current Visit: Yes Status: Acute Code(s): J18.9 - PNEUMONIA, UNSPECIFIED ORGANISM SNOMED Code(s): 650510007 Plan: 1patient presented hospital with increasing shortness of breath and chest pain which is likely multifactorial in this patient who did have evidence of PE on the CT there is also evidence of multifocal pneumonia with elevated white count and recently acute influenza A will need to cover for resistant gram-positive as well as gram-negative pathogen for post influenza pneumonia 2-blood culture has been negative no sputum has been collected 3-patient current being treated with cefepime and itraconazole along with diuretics and monitor clinical course closely Dictation was produced using [employer] dictation software. please excuse any grammatical, word or spelling errors. Time with Patient: Less than 30
[2024-08-14] MEDS: methylPREDNISolone SOD SUCCI 125 MG/2 ML VIAL IV SCH (14:40)
[2024-08-14 15:11] LABS: Glucose,Whole Blood 250 mg/dL (70-110)
--- NOTE | 2024-08-14 16:28 | P.PN ---
Progress Note - Text Progress Note Date: 08/14/24 Patient is a 64-year-old male with a PMH of atrial fibrillation on Eliquis, COPD on 2 L home oxygen, [id number] diabetes mellitus, hyperlipidemia, hypertension presenting with shortness of breath. Patient was previously admitted here for acute hypoxic respiratory failure secondary to influenza pneumonia and was discharged on 2 L of home oxygen. Patient states he has been feeling short of breath while at rest. He reports that since being discharged the home oxygen has not been sufficient. He states that he had to keep increasing his oxygen. Patient says shortness of breath is slightly relieved when he is laying down. Denies any orthopnea or PND. Patient endorses a nonpr oductive cough that is chronic in nature, but says it has been getting worse. Patient admits to having fever, chills. Patient also admits to having non- radiating, pressure-like chest pain over the last few days. Chest pain is not related to exertion and he had no alleviating or aggravating factors. Patient denies any headache, vision changes, nausea, vomiting, diarrhea, abdominal pain, urinary symptoms. EKG independently interpreted displaying sinus rhythm with left bundle branch block that has been seen on prior EKG, rate 65 bpm, QTc 451 ms CXR independently interpreted displaying bilateral multifocal airspace opacities Chest CTA displaying acute segmental and subsegmental pulmonary emboli within the right and middle lower lobes, no saddle embolus, no RV strain, chronic interstitial loading disease Venous Doppler B/L LE displaying no evidence of acute DVT Troponin 0.049, 0.055, proBNP 8810, D-dimer 4.87, WBC 22.6, Hgb 11.0, HCT 35.2, MCV 93.7, platelet 322, PT 11.8, INR 1.1, APTT 28, sodium 133, potassium 4.2, CO2 24, BUN 30, creatinine 1.27, glucose 135 VBG pH 7.52, pCO2 32 T98.2 F, HI 80, RR 26, BP 163/77, O2 sat 90% on BiPAP with FiO2 of 100% August 05: Overflow the ER. Up in the bed. Short of breath. Patient was on BiPAP overnight. This morning on 15 L high flow nasal cannula. Decreased appetite. Has got a cough. Some wheezing. Some sputum production. Decreased appetite. Patient is on IV heparin. Also on IV cefepime. Pulmonary following August 06: Patient did confirm that because Eliquis is very expensive patient was not taking it properly did and take it sparingly at home. Explains patient's PE. Started on Eliquis today by cardiology. IV heparin discontinued. Getting easily short of breath. Requiring BiPAP.. Some cough. Oral intake fair. On IV cefepime and vancomycin. ID following. Also on IV Lasix. Due to worsening renal function will DC vancomycin August 07: Saw this afternoon. On BiPAP. 60%. Ensure ordered. All blood work ordered by pulmonary including fungal. Patient currently on IV cefepime and Levaquin. IV Solu-Medrol. Remain short of breath. Tired. Being followed by pulmonary and ID. Chest x-ray film personally reviewed by me-showing pulm edema bilateral infiltrates especially at the bases. Renal ultrasound nonspecific. UA showing protein 1+. August 08: Remain short of breath. Sitting up in bed. Not able to come off the BiPAP. Remains on IV cefepime. Accu-Cheks running high. Put on insulin drip. On IV Solu-Medrol. Oral intake fair. August 09: Patient remains short of breath. Unable to get off BiPAP. FiO2 increased to 70%. 04/30. Per Dr. Goode: Patient be moved to the ICU. Poor oral intake. Remains on insulin drip. IV Solu-Medrol. Eliquis. IV cefepime and Levaquin. Tired. Sitting up in bed leaning forward short of breath. Chest x-ray film personally reviewed by me: Scattered bilateral infiltrates August 10: ICU. Remains on BiPAP. Decreased oral intake. Sitting up. Short of breath. On IV cefepime. Insulin drip. IV Solu-Medrol. DuoNeb Q4. Rather tired. Also yesterday evening at epistaxis. Nasal packing. August 11: ICU. Mostly been on BiPAP. High flow nasal cannula. Decreased oral intake. Sitting up leaning forward. Remains on IV cefepime or Levaquin insulin drip. A bit tired. Patient has very poor oral intake. Per [employer] patient will IV Lasix. Note worsening renal function-cut back to Lasix once a day. Given blood pressure running lower side. DC Aldactone and DC amlodipine. August 12: ICU. Patient was taken off BiPAP this morning. Decreased to high flow nasal cannula 10 L. at the bedside. Encourage oral intake. Chopped diet. Per [employer] nephrology patient to continue on IV Lasix. Blood pressure better after stopping amlodipine and Aldactone yesterday. Encourage oral intake. Incentive spirometry. IV cefepime, Levaquin, I terconazole per ID. August 13: ICU. Yesterday patient was nasal cannula. Overnight repeat put back on BiPAP. Patient did drop his hemoglobin further. Down to 6.2. Reading to be from epistaxis. Given a unit of blood. Further increase in BUN/creatinine. Remains on IV Lasix. Ordered Kerlix to both the lower extremities. Had a good portion of his lunch today. August 14: ICU. Patient seen this morning. 15 L nasal cannula. Reclining in bed. Short of breath. Garrett wrap lower extremity. Patient remains on IV cefepime, IV Lasix 40 mg every 12, insulin drip, IV Solu-Medrol DuoNeb Q4. Did not eat breakfast but had about 100% of his lunch. Active Medications Albuterol/Ipratropium (Ipratropium-Albuterol 3 Ml Neb) 3 ml INHALATION RT-QID PRN PRN Reason: Shortness Of Breath Or Wheezing Albuterol/Ipratropium (Ipratropium-Albuterol 3 Ml Neb) 3 ml INHALATION RT-Q4H [facility] Last Admin: 08/14/24 15:56 Dose: 3 ml Alprazolam (Alprazolam 0.5 Mg Tab) 0.5 mg PO TID PRN PRN Reason: Anxiety Last Admin: 08/14/24 09:50 Dose: 0.5 mg Artificial Tears (Artificial Tears-Hypromellose Drops 15 Ml Btl) 1 drops BOTH EYES QID PRN PRN Reason: Dry Eye(s) Aspirin (Aspirin 81 Mg) 81 mg PO DAILY [facility] Last Admin: 08/14/24 09:50 Dose: 81 mg Budesonide (Budesonide 1 Mg/2 Ml Nebu) 1 mg INHALATION RT-BID [facility] Last Admin: 08/14/24 07:33 Dose: 1 mg Dextrose/Water (Dextrose 50% Syringe 50 Ml) 25 ml IVP PER PROTOCOL PRN; Protocol PRN Reason: Hypoglycemia Dextrose/Water (Dextrose 50% Syringe 50 Ml) 50 ml IVP PER PROTOCOL PRN; Protocol PRN Reason: Hypoglycemia Formoterol Fumarate (Formoterol Fumarate 20 Mcg/2 Ml Nebu) 20 mcg INHALATION RT-BID [facility] Last Admin: 08/14/24 07:49 Dose: 20 mcg Furosemide (Furosemide 10 Mg/Ml 4 Ml Vial) 40 mg IV Q12HR [facility] Last Admin: 08/14/24 09:50 Dose: 40 mg Cefepime HCl 2 gm/ Sodium (Chloride) 100 mls @ 25 mls/hr IVPB Q12H [facility]; Protocol Last Admin: 08/14/24 10:03 Dose: 25 mls/hr Insulin Human Regular 100 unit (/ Sodium Chloride) 100 mls @ 0 mls/hr IV .Q0M [facility]; Protocol Last Titration: 08/14/24 15:12 Dose: 16.4 units/hr, 16.4 mls/hr Itraconazole (Itraconazole 100 Mg Cap) 200 mg PO BID [facility]; Protocol Last Admin: 08/14/24 09:51 Dose: 200 mg Lactulose (Lactulose 20 Gm/30 Ml Cup) 20 gm PO TID PRN PRN Reason: Constipation Lorazepam (Lorazepam 1 Mg Tab) 1 mg PO HS PRN PRN Reason: Anxiety Last Admin: 08/12/24 20:45 Dose: 1 mg Methylprednisolone Sodium Succinate (Methylprednisolone Sod Succi 125 Mg/2 Ml Vial) 60 mg IV Q6HR [facility] Last Admin: 08/14/24 14:40 Dose: 60 mg Metoprolol Succinate (Metoprolol Succinate (Er) 25 Mg Tab.Er.24h) 25 mg PO DAILY [facility] Last Admin: 08/14/24 09:50 Dose: 25 mg Morphine Sulfate (Morphine Sulfate 4 Mg/Ml Syringe) 4 mg IV Q4HR PRN PRN Reason: Severe Pain (Scale 7 to 10) Last Admin: 08/14/24 14:41 Dose: 4 mg Naloxone HCl (Naloxone 0.4 Mg/Ml 1 Ml Vial) 0.2 mg IV Q2M PRN PRN Reason: Opioid Reversal Ondansetron HCl (Ondansetron 4 Mg/2 Ml Vial) 4 mg IVP Q8HR PRN PRN Reason: Nausea And Vomiting Last Admin: 08/07/24 14:52 Dose: 4 mg Oxymetazoline HCl (Oxymetazoline 0.05% Nasl [place] 1 [place] Bottle) 2 spray NASAL BID [facility] Last Admin: 08/14/24 10:03 Dose: 2 spray Pantoprazole Sodium (Pantoprazole 40 Mg Tablet) 40 mg PO AC-BRKFST [facility] Last Admin: 08/14/24 09:50 Dose: 40 mg Sodium Chloride (Sodium Chloride 0.65% Nasal [place] 44 Ml Btl) 2 spray NASAL QID PRN PRN Reason: Dry Nasal Passages Social history: Tobacco: Current [id number]-degr smoker Alcohol: Occasional alcohol use Recreational drugs: Marijuana Travel: No recent travel On examination: VITAL SIGNS: 97, 77, 25, 136 x 57, 94% on 15 L high flow nasal cannula GENERAL APPEARANCE: Reclining in bed, short of breath HEENT: Normal external appearance of nose and ear. Oral cavity normal EYES: Pupils equal. Conjunctiva normal. NECK: JVD unable to assess. Mass not palpable. RESPIRATORY: Respiratory effort increased, Lungs diminished breath sounds some scattered crackles prolonged expiration. CARDIOVASCULAR: First and second sounds normal. No edema. ABDOMEN: Soft. Liver and spleen not palpable. No tenderness. No mass palpable. PSYCHIATRY: Answering questions appropriately. A bit less tired INVESTIGATIONS, reviewed in the clinical context: August 14: White count 16.5 globin 7.1 potassium 4.4 BUN 123 creatinine 2.33 August 13: Hemoglobin today down to 6.2.After unit of blood. Up to 7.1. BUN 139 creatinine 2.04 August 12: White count 18.1 hemoglobin 7 platelets 182 potassium 4.6 BUN 125 creatinine 2.28 July 18: White count 22.8 hemoglobin 7.4 platelets 200 sodium 130 potassium 4.2 BUN 117 creatinine 2.11 August 10: White count 21.7 hemoglobin 7.9 platelets 201 sodium 128 potassium 4.5 BUN 95 creatinine 1.97 Mild 16: White count 21.1 hemoglobin 9.1 platelets 245 potassium 4.2 BUN 68 creatinine 1.73 August 08: White count 8.2 hemoglobin 9.2 platelets 232 ABG: pH 7.3 pCO2 42 pO2 80 sodium 133 potassium 3.6 creatinine 1.69. Accu-Cheks high August 07: White count 20.8 hemoglobin 9.2 platelets 265 sodium 134 BUN 44 creatinine 1.54. Chest x-ray: Pulm edema/bilateral infiltrates August 06: Sodium 132 potassium 3.4 BUN 35 creatinine 1.51 August 05: White count 7.2 hemoglobin 10.3 platelets 242 sodium 136 potassium 3.8 BUN 28 creatinine 1.37 Troponin I: 0.049, 0.055, 0.051 Chest x-ray film personally reviewed by me-bilateral infiltrates. Effusion/pulm edema cardiomegaly. Venous Doppler: No DVT Chest CTA: Acute segmental and subsegmental pulm embolism within the right middle and right lower lobes. No RV strain. Chronic interstitial lung disease. Previous labs: Creatinine 1.63 in October 2022 Assessment/Plan: #. Acute pulmonary embolism, non-massive [segmental and subsegmental within the right middle and lower lobes. No RV strain Initially IV heparin, currently on o Eliquis #. Sepsis likely secondary to -viral pneumonia. Secondary bacterial component IV cefepime. Levaquin discontinued on August 12..-also has been on itraconazole started on the August 07 ID and pulmonary following #. Acute hypoxic respiratory failure, secondary to above: Slow to respond Intermittently BiPAP, currently 15 L nasal cannula #. Acute COPD exacerbation, in a prior smoker: Some improvement DuoNeb Q4. IV Solu-Medrol 60 mg Q6. Nebulized Pulmicort #. Acute on chronic heart failure with reduced ejection fraction (EF 45 to 50%): Some improvement IV Lasix 40 mg every 12. Aldactone-discontinued. #. Chronic hypoxic respiratory failure from underlying COPD, 2 L home O2 -Acute kidney injury, likely ATN multifactorial, worsening Admission creatinine 1.27. #. Pao-fslllma-hxonqnvpf type 2 diabetes, uncontrolled with hyperglycemia secondary steroids: Not improving Insulin subcu sliding scale. Stop Levemir. Continues on insulin drip Accu-Cheks ACHS - chronic kidney disease stage III from nephrosclerosis and diabetic nephropathy [creatinine 1.63 in October 2022] Renal ultrasound.: Suboptimal study. No corticomedullary comment. UA protein 1+ -Recent influenza type A #. Essential hypertension- Toprol-XL. Other antihypertensives have been held #. Hyperlipidemia Lipitor -Full code On IV Lasix., IV cefepime, Itroconazole, IV steroids. Bronchodilators. Had a good lunch. IV insulin Past Medical History Past Medical History: Atrial Fibrillation, Diabetes Mellitus, Hyperlipidemia, Hypertension, Pneumonia, Supraventricular Tachycardia (SVT) Additional Past Medical History / Comment(s): a fib, causes shortness of breath, can feel irregular heartbeat History of Any Multi-Drug Resistant Organisms: None Reported Past Surgical History: Cholecystectomy, Heart Catheterization Additional Past Surgical History / Comment(s): Colonoscopy Past Anesthesia/Blood Transfusion Reactions: No Reported Reaction Past Psychological History: No Psychological Hx Reported Smoking Status: Current every day smoker Past Alcohol Use History: Occasional Past Drug Use History: Marijuana
[2024-08-14 17:42] LABS: Glucose,Whole Blood 104 mg/dL (70-110)
--- NOTE | 2024-08-14 18:42 | P.PN ---
Subjective Patient is seen for follow-up for acute kidney injury. Currently maintained on Lasix Patient remains short of breath requiring BiPAP on and off. Oxygen requirement seems to have improved. Serum creatinine at 2.3. BUN disproportionately elevated but down to 123 today. Patient is maintained on steroids and may have underlying GI bleed. Objective - Vital Signs Vital signs: Vital Signs Temp 98.8 F 08/14/24 16:00 Pulse 79 08/14/24 18:00 Resp 24 08/14/24 18:00 BP 119/49 08/14/24 18:00 Pulse Ox 92 L 08/14/24 18:00 FiO2 50 08/13/24 20:00 Intake & Output 08/13/24 08/14/24 08/14/24 18:59 06:59 18:59 Intake Total 1640.460 665.551 5506.514 Output Total 1850 1250 1500 Balance -209.540 -8781.800 7425.514 Weight 100.3 kg 100.3 kg Intake: IV 280 170 135 .9 80 170 135 Cefepime 2 gm In Sodium 200 Chloride 0.9% 100 ml @ 25 mls/hr IVPB Q12H [facility] Rx# :[id number] Intake, IV Titration 80.460 50.921 213.514 Amount Cefepime 2 gm In Sodium 100 Chloride 0.9% 100 ml @ 25 mls/hr IVPB Q12H [facility] Rx# :[id number] Insulin Regular 100 unit 80.460 50.921 113.514 In Sodium Chloride 0.9% 100 ml @ Titrate IV .Q0M [facility] Rx#:[id number] Oral 970 2430 Blood Product 310 Rc As-1 Unit 310 [id number] Output: Urine 1850 1250 1500 Other: Voiding Method External Catheter External Catheter External Catheter - Exam Patient is awake, comfortable Maintained on BiPAP Examination of the heart S1 and S2 Examination of the lungs decreased breath sounds at the bases occasional wheezing heard bilaterally Abdomen is soft nontender Examination of lower extremities shows edema 1+ bilaterally CREDIT RISK MODELER exam grossly intact - Labs CBC & Chem 7: 08/14/24 03:26 08/14/24 03:26 Labs: Abnormal Lab Results - Last 24 Hours (Table) 08/12/24 08/13/24 08/13/24 Range/Units 02:34 19:09 20:14 WBC (3.8-10.6) k/uL RBC (4.30-5.90) m/uL Hgb (13.0-17.5) gm/dL Hct (39.0-53.0) % Neutrophils # (1.3-7.7) k/uL Lymphocytes # (1.0-4.8) k/uL Sodium (137-145) mmol/L BUN (9-20) mg/dL Creatinine (0.66-1.25) mg/dL Glucose (74-99) mg/dL POC Glucose (mg/dL) 125 H 170 H 148 H (70-110) mg/dL 08/13/24 08/13/24 08/13/24 Range/Units 21:22 22:12 23:32 WBC (3.8-10.6) k/uL RBC (4.30-5.90) m/uL Hgb (13.0-17.5) gm/dL Hct (39.0-53.0) % Neutrophils # (1.3-7.7) k/uL Lymphocytes # (1.0-4.8) k/uL Sodium (137-145) mmol/L BUN (9-20) mg/dL Creatinine (0.66-1.25) mg/dL Glucose (74-99) mg/dL POC Glucose (mg/dL) 151 H 157 H 139 H (70-110) mg/dL 08/13/24 08/14/24 08/14/24 Range/Units 23:58 01:09 02:03 WBC (3.8-10.6) k/uL RBC (4.30-5.90) m/uL Hgb (13.0-17.5) gm/dL Hct (39.0-53.0) % Neutrophils # (1.3-7.7) k/uL Lymphocytes # (1.0-4.8) k/uL Sodium (137-145) mmol/L BUN (9-20) mg/dL Creatinine (0.66-1.25) mg/dL Glucose (74-99) mg/dL POC Glucose (mg/dL) 141 H 197 H 226 H (70-110) mg/dL 08/14/24 08/14/24 08/14/24 Range/Units 03:09 03:26 03:26 WBC 16.5 H (3.8-10.6) k/uL RBC 2.34 L (4.30-5.90) m/uL Hgb 7.1 L (13.0-17.5) gm/dL Hct 21.5 L (39.0-53.0) % Neutrophils # 15.8 H (1.3-7.7) k/uL Lymphocytes # 0.2 L (1.0-4.8) k/uL Sodium 132 L (137-145) mmol/L BUN 123 H* (9-20) mg/dL Creatinine 2.33 H (0.66-1.25) mg/dL Glucose 188 H (74-99) mg/dL POC Glucose (mg/dL) 236 H (70-110) mg/dL 08/14/24 08/14/24 08/14/24 Range/Units 03:53 05:27 06:14 WBC (3.8-10.6) k/uL RBC (4.30-5.90) m/uL Hgb (13.0-17.5) gm/dL Hct (39.0-53.0) % Neutrophils # (1.3-7.7) k/uL Lymphocytes # (1.0-4.8) k/uL Sodium (137-145) mmol/L BUN (9-20) mg/dL Creatinine (0.66-1.25) mg/dL Glucose (74-99) mg/dL POC Glucose (mg/dL) 237 H 217 H 193 H (70-110) mg/dL 08/14/24 08/14/24 08/14/24 Range/Units 07:01 09:28 10:24 WBC (3.8-10.6) k/uL RBC (4.30-5.90) m/uL Hgb (13.0-17.5) gm/dL Hct (39.0-53.0) % Neutrophils # (1.3-7.7) k/uL Lymphocytes # (1.0-4.8) k/uL Sodium (137-145) mmol/L BUN (9-20) mg/dL Creatinine (0.66-1.25) mg/dL Glucose (74-99) mg/dL POC Glucose (mg/dL) 192 H 243 H 247 H (70-110) mg/dL 08/14/24 08/14/24 08/14/24 Range/Units 12:22 13:33 15:09 WBC (3.8-10.6) k/uL RBC (4.30-5.90) m/uL Hgb (13.0-17.5) gm/dL Hct (39.0-53.0) % Neutrophils # (1.3-7.7) k/uL Lymphocytes # (1.0-4.8) k/uL Sodium (137-145) mmol/L BUN (9-20) mg/dL Creatinine (0.66-1.25) mg/dL Glucose (74-99) mg/dL POC Glucose (mg/dL) 305 H 302 H 250 H (70-110) mg/dL Assessment and Plan Assessment: 1. Acute renal injury, ATN associated with underlying infection and borderline low blood pressures in the setting of use of SAGAR inhibitors. May continue with IV diuretics. Ultrasound shows no evidence of obstruction. UA is benign. BUN disproportionately elevated secondary to steroids and possible GI bleed 2. Acute hypoxic respiratory failure secondary to pneumonia and volume overload 3. Volume overload 4. CHF with preserved ejection fraction of 55 to 60% noted this admission 5. Hypervolemic hyponatremia. Patient was also maintained on hypotonic IV fluids which contributed to the hyponatremia, now improved 6. Influenza A infection status post Tamiflu during previous hospitalization about 4 weeks ago 7. Anemia rule out GI bleed, being transfused packed RBCs for hemoglobin 6.2. No active bleeding noted. Plan: Continue with Lasix. BUN is disproportionately elevated from steroids and possible underlying GI bleed. Patient may need to start renal replacement therapy Repeat labs in a.m. Continue off of SAGAR inhibitors Continue with Aldactone Continue to avoid nephrotoxic agents
[2024-08-14 19:07] LABS: Glucose,Whole Blood 109 mg/dL (70-110)
[2024-08-14 20:08] LABS: Glucose,Whole Blood 179 mg/dL (70-110)
[2024-08-14 21:55] LABS: Glucose,Whole Blood 317 mg/dL (70-110)
[2024-08-14] MEDS: FUROSEMIDE 10 MG/ML 4 ML VIAL IV SCH (23:09)
[2024-08-14 23:17] LABS: Glucose,Whole Blood 327 mg/dL (70-110)
[2024-08-15 00:18] LABS: Glucose,Whole Blood 291 mg/dL (70-110)
[2024-08-15 01:13] LABS: Glucose,Whole Blood 251 mg/dL (70-110)
[2024-08-15 02:13] LABS: Glucose,Whole Blood 195 mg/dL (70-110)
[2024-08-15 03:13] LABS: Glucose,Whole Blood 134 mg/dL (70-110)
[2024-08-15 03:57] LABS: Glucose,Whole Blood 87 mg/dL (70-110)
[2024-08-15 05:01] LABS: Glucose,Whole Blood 117 mg/dL (70-110)
[2024-08-15 05:02] LABS: African American GFR (CKD) 32 (>60 ml/min/1.73 sqM); Anion Gap 7 mmol/L; Carbon Dioxide 25 mmol/L (22-30); Chloride 103 mmol/L (98-107); Glucose 74 mg/dL (74-99); Non-African American GFR(CKD) 28 (>60 ml/min/1.73 sqM); Potassium 3.9 mmol/L (3.5-5.1); Sodium 135 mmol/L (137-145)
[2024-08-15 05:34] LABS: HCT 21.7 % (39.0-53.0); HGB 7.2 gm/dL (13.0-17.5); Hypochromasia Slight; MCH 30.7 pg (25.0-35.0); MCHC 33.2 g/dL (31.0-37.0); MCV 92.5 fL (80.0-100.0); Mean Platelet Volume 11.6; Platelet Count 158 k/uL (150-450); RBC 2.35 m/uL (4.30-5.90); RDW 13.6 % (11.5-15.5); WBC 19.9 k/uL (3.8-10.6)
[2024-08-15 05:39] LABS: Blood Urea Nitrogen 118 mg/dL (9-20)
[2024-08-15 05:57] LABS: Glucose,Whole Blood 187 mg/dL (70-110)
--- NOTE | 2024-08-15 06:10 | XR ---
EXAMINATION TYPE: XR chest 1V portable DATE OF EXAM: 08/15/2024 CLINICAL INDICATION: Male, 64 years old with history of distress, progress study. TECHNIQUE: Single AP portable upright view of the chest is obtained. COMPARISON: Chest x-ray from one day earlier and older studies FINDINGS: Persistent cardiomegaly with bilateral increased opacities. Osseous structures are intact. IMPRESSION: Findings favor continued CHF exacerbation/fluid overload state. No significant change fro m one day earlier. [facility], , 08/15/2024 6:08 AM
[2024-08-15 06:59] LABS: Glucose,Whole Blood 165 mg/dL (70-110)
[2024-08-15 08:21] LABS: Glucose,Whole Blood 173 mg/dL (70-110)
--- NOTE | 2024-08-15 08:38 | P.PN ---
Subjective Patient is a 64-year-old male with a PMH of atrial fibrillation on Eliquis, COPD on 2 L home oxygen, iji-[id number] diabetes mellitus, hyperlipidemia, hypertension presenting with shortness of breath. Patient was previously admitted here for acute hypoxic respiratory failure secondary to influenza pneumonia and was discharged on 2 L of home oxygen. Patient states he has been feeling short of breath while at rest. He reports that since being discharged the home oxygen has not been sufficient. He states that he had to keep increasing his oxygen. Patient says shortness of breath is slightly relieved when he is laying down. Denies any orthopnea or PND. Patient endorses a nonproductive cough that is chronic in nature, but says it has been getting worse. Patient admits to having fever, chills. Patient also admits to having non-radiating, pressure-like chest pain over the last few days. Chest pain is not related to exertion and he had no alleviating or aggravating factors. Patient denies any headache, vision changes, nausea, vomiting, diarrhea, abdominal pain, urinary symptoms. EKG independently interpreted displaying sinus rhythm with left bundle branch block that has been seen on prior EKG, rate 65 bpm, QTc 451 ms CXR independently interpreted displaying bilateral multifocal airspace opacities Chest CTA displaying acute segmental and subsegmental pulmonary emboli within the right and middle lower lobes, no saddle embolus, no RV strain, chronic interstitial loading disease Venous Doppler B/L LE displaying no evidence of acute DVT Troponin 0.049, 0.055, proBNP 8810, D-dimer 4.87, WBC 22.6, Hgb 11.0, HCT 35.2, MCV 93.7, platelet 322, PT 11.8, INR 1.1, APTT 28, sodium 133, potassium 4.2, CO2 24, BUN 30, creatinine 1.27, glucose 135 VBG pH 7.52, pCO2 32 T98.2 F, RI 80, RR 26, BP 163/77, O2 sat 90% on BiPAP with FiO2 of 100% August 05: Overflow the ER. Up in the bed. Short of breath. Patient was on BiP AP overnight. This morning on 15 L high flow nasal cannula. Decreased appetite. Has got a cough. Some wheezing. Some sputum production. Decreased appetite. Patient is on IV heparin. Also on IV cefepime. Pulmonary following August 06: Patient did confirm that because Eliquis is very expensive patient was not taking it properly did and take it sparingly at home. Explains patient's PE. Started on Eliquis today by cardiology. IV heparin discontinued. Getting easily short of breath. Requiring BiPAP.. Some cough. Oral intake fair. On IV cefepime and vancomycin. ID following. Also on IV Lasix. Due to worsening renal function will DC vancomycin August 07: Saw this afternoon. On BiPAP. 60%. Ensure ordered. All blood work ordered by pulmonary including fungal. Patient currently on IV cefepime and Levaquin. IV Solu-Medrol. Remain short of breath. Tired. Being followed by pulmonary and ID. Chest x-ray film personally reviewed by me-showing pulm edema bilateral infiltrates especially at the bases. Renal ultrasound nonspecific. UA showing protein 1+. August 08: Remain short of breath. Sitting up in bed. Not able to come off the BiPAP. Remains on IV cefepime. Accu-Cheks running high. Put on insulin drip. On IV Solu-Medrol. Oral intake fair. August 09: Patient remains short of breath. Unable to get off BiPAP. FiO2 increased to 70%. 04/30. Per Dr. Goode: Patient be moved to the ICU. Poor oral intake. Remains on insulin drip. IV Solu-Medrol. Eliquis. IV cefepime and Levaquin. Tired. Sitting up in bed leaning forward short of breath. Chest x-ray film personally reviewed by me: Scattered bilateral infiltrates August 10: ICU. Remains on BiPAP. Decreased oral intake. Sitting up. Short of breath. On IV cefepime. Insulin drip. IV Solu-Medrol. DuoNeb Q4. Rather tired. Also yesterday evening at epistaxis. Nasal packing. August 11: ICU. Mostly been on BiPAP. High flow nasal cannula. Decreased oral intake. Sitting up leaning forward. Remains on IV cefepime or Levaquin insulin drip. A bit tired. Patient has very poor oral intake. Per groundskeeping yardman patient will IV Lasix. Note worsening renal function-cut back to Lasix once a day. Given blood pressure running lower side. DC Aldactone and DC amlodipine. August 12: ICU. Patient was taken off BiPAP this morning. Decreased to high flow nasal cannula 10 L. at the bedside. Encourage oral intake. Chopped diet. Per groundskeeping yardman nephrology patient to continue on IV Lasix. Blood pressure better after stopping amlodipine and Aldactone yesterday. Encourage oral intake. Incentive spirometry. IV cefepime, Levaquin, I terconazole per ID. August 13: ICU. Yesterday patient was nasal cannula. Overnight repeat put back on BiPAP. Patient did drop his hemoglobin further. Down to 6.2. [place] to be from epistaxis. Given a unit of blood. Further increase in BUN/creatinine. Remains on IV Lasix. Ordered Kerlix to both the lower extremities. Had a good portion of his lunch today. August 14: ICU. Patient seen this morning. 15 L nasal cannula. Reclining in bed. Short of breath. [place] wrap lower extremity. Patient remains on IV cefepime, IV Lasix 40 mg every 12, insulin drip, IV Solu-Medrol DuoNeb Q4. Did not eat breakfast but had about 100% of his lunch. 08/15/2024, resume the care of the patient today. Patient seen and examined in the ICU. His not tolerating his BiPAP mask more than 1 hour, currently his mildly/moderately tachypneic on 15 L oxygen via nonrebreather. He has apparent swelling of both arms and legs, sitting up in chair feels tired denies chest pain. Patient also on insulin drip at 7 units/h. Objective - Vital Signs Vital signs: Vital Signs Temp 98.5 F 08/15/24 04:00 Pulse 72 08/15/24 08:26 Resp 20 08/15/24 07:00 BP 120/54 08/15/24 07:00 Pulse Ox 95 08/15/24 08:04 FiO2 50 08/15/24 04:40 Intake & Output 08/14/24 08/15/24 08/15/24 18:59 06:59 18:59 Intake Total 2778.514 915.189 10 Output Total 1500 1325 Balance 1278.514 -409.811 10 Weight 100.3 kg Intake: IV 135 120 10 .9 135 120 10 Intake, IV Titration 213.514 55.189 Amount Cefepime 2 gm In Sodium 100 Chloride 0.9% 100 ml @ 25 mls/hr IVPB Q12H [facility] Rx# :[id number] Insulin Regular 100 unit 113.514 55.189 In Sodium Chloride 0.9% 100 ml @ Titrate IV .Q0M [facility] Rx#:[id number] Oral 2430 740 Output: Urine 1500 1325 Other: Voiding Method External Catheter External Catheter - Exam -GENERAL: The patient is alert and oriented x3, not in any acute distress. Well developed, well nourished. Obese HEENT: Pupils are round and equally reacting to light. EOMI. No scleral icterus. No conjunctival pallor. Normocephalic, atraumatic. No pharyngeal erythema. No thyromegaly. CARDIOVASCULAR: S1 and S2 present. No murmurs, rubs, or gallops. -PULMONARY: Chest is clear to auscultation, no wheezing , n bilateral basal crackles. Tachypneic, ABDOMEN: Soft, nontender, nondistended, normoactive bowel sounds. No palpable organomegaly. MUSCULOSKELETAL: No joint swelling or deformity. -EXTREMITIES: No cyanosis, clubbing bilateral arm and leg pitting edema. NEUROLOGICAL: Gross neurological examination did not reveal any focal deficits. SKIN: No rashes. no petechiae. - Labs CBC & Chem 7: 08/15/24 03:54 08/15/24 03:54 Labs: Abnormal Lab Results - Last 24 Hours (Table) 08/12/24 08/14/24 08/14/24 Range/Units 02:34 09:28 10:24 WBC (3.8-10.6) k/uL RBC (4.30-5.90) m/uL Hgb (13.0-17.5) gm/dL Hct (39.0-53.0) % Sodium (137-145) mmol/L BUN (9-20) mg/dL Creatinine (0.66-1.25) mg/dL POC Glucose (mg/dL) 125 H 243 H 247 H (70-110) mg/dL Magnesium (1.6-2.3) mg/dL 08/14/24 08/14/24 08/14/24 Range/Units 12:22 13:33 15:09 WBC (3.8-10.6) k/uL RBC (4.30-5.90) m/uL Hgb (13.0-17.5) gm/dL Hct (39.0-53.0) % Sodium (137-145) mmol/L BUN (9-20) mg/dL Creatinine (0.66-1.25) mg/dL POC Glucose (mg/dL) 305 H 302 H 250 H (70-110) mg/dL Magnesium (1.6-2.3) mg/dL 08/14/24 08/14/24 08/14/24 Range/Units 20:07 21:54 23:16 WBC (3.8-10.6) k/uL RBC (4.30-5.90) m/uL Hgb (13.0-17.5) gm/dL Hct (39.0-53.0) % Sodium (137-145) mmol/L BUN (9-20) mg/dL Creatinine (0.66-1.25) mg/dL POC Glucose (mg/dL) 179 H 317 H 327 H (70-110) mg/dL Magnesium (1.6-2.3) mg/dL 08/15/24 08/15/24 08/15/24 Range/Units 00:17 01:12 02:12 WBC (3.8-10.6) k/uL RBC (4.30-5.90) m/uL Hgb (13.0-17.5) gm/dL Hct (39.0-53.0) % Sodium (137-145) mmol/L BUN (9-20) mg/dL Creatinine (0.66-1.25) mg/dL POC Glucose (mg/dL) 291 H 251 H 195 H (70-110) mg/dL Magnesium (1.6-2.3) mg/dL 08/15/24 08/15/24 08/15/24 Range/Units 03:12 03:54 03:54 WBC 19.9 H (3.8-10.6) k/uL RBC 2.35 L (4.30-5.90) m/uL Hgb 7.2 L (13.0-17.5) gm/dL Hct 21.7 L (39.0-53.0) % Sodium 135 L (137-145) mmol/L BUN 118 H* (9-20) mg/dL Creatinine 2.37 H (0.66-1.25) mg/dL POC Glucose (mg/dL) 134 H (70-110) mg/dL Magnesium 3.0 H (1.6-2.3) mg/dL 08/15/24 08/15/24 08/15/24 Range/Units 04:59 05:56 06:58 WBC (3.8-10.6) k/uL RBC (4.30-5.90) m/uL Hgb (13.0-17.5) gm/dL Hct (39.0-53.0) % Sodium (137-145) mmol/L BUN (9-20) mg/dL Creatinine (0.66-1.25) mg/dL POC Glucose (mg/dL) 117 H 187 H 165 H (70-110) mg/dL Magnesium (1.6-2.3) mg/dL 08/15/24 Range/Units 08:20 WBC (3.8-10.6) k/uL RBC (4.30-5.90) m/uL Hgb (13.0-17.5) gm/dL Hct (39.0-53.0) % Sodium (137-145) mmol/L BUN (9-20) mg/dL Creatinine (0.66-1.25) mg/dL POC Glucose (mg/dL) 173 H (70-110) mg/dL Magnesium (1.6-2.3) mg/dL Assessment and Plan Assessment: Assessment/Plan: #. Acute pulmonary embolism, non-massive [segmental and subsegmental within the right middle and lower lobes. No RV strain Initially IV heparin, currently on o Eliquis #. Sepsis likely secondary to -viral pneumonia. Secondary bacterial component IV cefepime. Levaquin discontinued on August 12..-also has been on itraconazole started on the August 07 ID and pulmonary following #. Acute hypoxic respiratory failure, secondary to above: Slow to respond Intermittently BiPAP, currently 15 L nasal cannula #. Acute COPD exacerbation, in a prior smoker: Some improvement DuoNeb Q4. IV Solu-Medrol 60 mg Q6. Nebulized Pulmicort #. Acute on chronic heart failure with reduced ejection fraction (EF 45 to 50%): Some improvement IV Lasix 40 mg every 12. Aldactone-discontinued. #. Chronic hypoxic respiratory failure from underlying COPD, 2 L home O2 -Acute kidney injury, likely ATN multifactorial, worsening Admission creatinine 1.27. #. Nzp-evsmzaq-mocysvgke type 2 diabetes, uncontrolled with hyperglycemia secondary steroids: Not improving Insulin subcu sliding scale. Stop Levemir. Continues on insulin drip Accu-Cheks ACHS - chronic kidney disease stage III from nephrosclerosis and diabetic nephropathy [creatinine 1.63 in October 2022] Renal ultrasound.: Suboptimal study. No corticomedullary comment. UA protein 1+ -Recent influenza type A #. Essential hypertension- Toprol-XL. Other antihypertensives have been held #. Hyperlipidemia Lipitor -Full code On IV Lasix., IV cefepime, Itroconazole, IV Solu-Medrol 60 mg. Had a good lunch. IV insulin
[2024-08-15] MEDS: LACTULOSE 20 GM/30 ML CUP PO PRN (08:49)
[2024-08-15 09:07] LABS: Glucose,Whole Blood 183 mg/dL (70-110)
[2024-08-15 10:04] LABS: Glucose,Whole Blood 177 mg/dL (70-110)
--- NOTE | 2024-08-15 10:53 | P.PN ---
Subjective Progress Note Date: 08/15/24 Principal diagnosis: Acute on chronic hypoxic respiratory failure, multifactorial Patient is a 64-year-old male with past medical history significant for atrial fibrillation, diabetes mellitus, CKD stage III, hypertension, hyperlipidemia, tobacco smoker. Of note, recently had a prolonged hospitalization 07/19/2024 through 07/31/2024. Treated for combination of influenza A, pneumonia, CHF. Completed course of antibiotics and Tamiflu. At this time, did require noninvasive BiPAP, eventually discharged on home O2. Returns with a chief complaint of shortness of breath progressing over the last 2 to 3 days. Also, reports sudden onset substernal chest pain that developed the night prior and has been persistent. On arrival to the ED, found to be in some respiratory distress, and placed on BiPAP. Workup in the emergency department including a chest x-ray showing multifocal infiltrates concerning for pneumonia or pulmonary edema. D-dimer was elevated in setting CT angio protocol which was positive for segmental and subsegmental right middle lobe and right lower lobe pulmonary emboli. No saddle pulmonary embolus. Pulmonary artery mildly enlarged. Preserved RV to LV ratio. There were diffuse coarse reticular infiltrates, as well as, groundglass lung attenuation, cystic changes, with concerns for interstitial lung disease. Patient does take Eliquis for his history of atrial fibrillation. Does state he has missed some doses lately. CBC: WBC count 22.6, hemoglobin 11, platelets 322. CMP: Sodium 133, potassium 4.2, chloride 101, serum bicarb 24, BUN 30, creatinine 1.27, glucose 135. Lactic 1.5. VBG with a pH of 7.5 and pCO2 of 32. EKG: Sinus rhythm, rate 65 bpm, left bundle branch block, not acute. Elevated serial troponins 0.049 and 0.055 respectively. NT proBNP elevated 8807. Patient is currently being evaluated in the emergency department. He is alert and some moderate respiratory distress. On BiPAP with settings 12/5 and FiO2 60%. Tachypneic, breathing around 40 breaths/min. Endorses progressive worsening difficulty in breathing over last couple days. He has tried to increase his supplemental oxygen at home without any relief. Denies previous history of DVT or PE. Associated nonproductive cough. Denies sputum production or hemoptysis. Substernal nonradiating chest pain persist. Denies any fevers or chills. Denies heart palpitations or syncopal events. Denies swelling in the lower extremities. Heart rhythm is normal sinus on bedside monitor. Blood pressure has been normotensive, did receive 2 L of crystalloid fluid bolus earlier. Not requiring any vasopressors. Normal saline is infusing at 150 mL/h. IV heparin infusing per protocol 08/06/2024, the patient is being seen for a follow-up. The patient is alternating between BiPAP at a pressure of 12/5 with an FiO2 of 60% and 15 L of oxygen by nasal cannula. He is getting slightly anxious and the patient is being provided Xanax accordingly. Fluid balance is -1.1 L over the past 24 hours. Limited echocardiogram was also done and it showed preserved LV function with an EF of around 55 to 60%. Valvular functions could not be accurately assessed as the patient's study was technically difficult study. There was however RV dilatation. Unable to estimate RV pressures. The electrolytes from today showed a creatinine of 1.5 with a BUN of 35. Bicarb is at 21. Sodium is at 132. The patient remains on DuoNeb updrafts. The patient remains on a combination of cefepime and vancomycin. The patient was taken off the IV hep lizzette and the patient was started on anticoagulation with Eliquis. Remains on IV Solu-Medrol 60 mg every 6 hours. Remains on Aldactone. Remains on IV Lasix 40 mg every 12 hours. On today's evaluation of 08/07/2024, the patient is overall condition is essentially unchanged. Continues to be hypoxic, continues to be on BiPAP and the patient remains at a pressure of 12/5 with an FiO2 of 60%. Continues to have crackles in lung base bilaterally. White cell count remains elevated at 20 with a hemoglobin 9.2. Very much BiPAP dependent as the patient desaturates once taken off the BiPAP. BUN is 44 with a platelet of 1.5. Sodium levels at 134 and a potassium level is at 3.4. Remains on DuoNeb updrafts. Remains on IV Lasix 40 mg every 12 hours. Remains on Aldactone. Remains on bronchodilators. Remains on steroids. Empiric antibiotic coverage with IV cefepime. Reviewed the CAT scan again and there is some chronic interstitial changes and the patient has diffuse infiltrates with areas of groundglass. Consider acute interstitial pneumonias. Consider fungal pneumonias. On today's evaluation of 08/08/2024, the patient is feeling slightly better compared to yesterday. The patient is off the BiPAP and the patient is currently on 15 L of oxygen by nasal cannula. Remains on bronchodilators. Remains on IV Solu-Medrol. Remains on IV Lasix. Antibiotic coverage including combination of cefepime, Levaquin orally and itraconazole orally. Fungal antibodies are still pending. Meanwhile, rheumatologic profile showed a negative rheumatoid factor and negative MARISA. Legionella urine antigen is still pending for now. Clinically however, the patient is feeling slightly improved compared to yesterday. His chest x-ray continues to show multifocal airspace disease more so in the right lung. Fluid balance has been negative. The patient's creatinine is currently at 1.6 with a BUN of 54 and a sodium levels at 133. I am going to taper the steroids. The white cell count is 18.2 with a hemoglobin of 9.2. On 08/09/2024, the patient is transferred to the intensive care unit for closer monitoring. As mentioned, the patient developed acute hypoxic respiratory failure with diffuse bilateral pulmonary filtrates discussed earlier. The patient was able to tolerate Airvo, however, overnight, the patient developed epistaxis. Therefore was discontinued the patient was placed back on BiPAP and his current BiPAP is running at a pressure of 12 over 5 cm of water with an FiO2 of 80%. The patient seems to be quite dependent on the BiPAP. Unable to drop the FiO2 any further. Repeat chest x-ray was done and shows stable diffuse bilateral pulm infiltrates which remains essentially unchanged compared to yesterday. Clinically, the patient is awake and alert. He is reported to have some congested cough. No significant sputum production. No chest pain. No hemoptysis. Noted, over the past 48 hours, the patient was diuresed with IV Lasix. Nevertheless, we have not seen any improvement in the patient's oxygenation. The patient was negative fluid balance. His BNP today is at 68 with a creatinine of 1.7. Based on that, I stopped diuretics. Rest of the electrolytes are all within normal limits. White cell count of 21 with a hemoglobin 9.1 and a platelet count of 245. The patient remains on broad- spectrum antibiotics. The patient remains on IV cefepime, itraconazole and Levaquin. Fungal antibodies are still pending for now. MARISA and rheumatoid factor were both negative. Legionella urine antigen was also negative. The patient remains on anticoagulation and I am going to drop the Eliquis dose to 5 mg p.o. twice a day. I am not absolutely convinced that the patient has a pulmonary embolism. I reviewed the CAT scan of the chest and there could be potentially some subsegmental filling defects in the right, however, the overall contrast administration was essentially poor. The patient will be monitored very closely in the intensive care unit. On a separate note, the patient was started on insulin drip for blood sugar control. Patient was seen today on 08/10/2024, remains in the ICU, remains on fluid restrictions for low sodium of 128, he is on BiPAP 12/60%, patient is presenting this time very much similar to his last presentation few weeks ago. I am familiar with this patient, and on his last admission patient responded to treatment with mostly diuretics, and steroids. This time came back with a similar presentation, he is receiving diuretics, but has been on hold for the last 24 hours, and I recommended we go back on Lasix 40 mg IV push every 12 hours, patient is receiving Solu-Medrol at 60 mg IV push every 8 hours, he is also on Levaquin's, cefepime, and he is marginal at best. In addition to this the patient had non-ST elevation myocardial infarction and flu/influenza A back on 08/04. Blood cultures have been negative, patient has leukocytosis with WBC count of 21.7 hemoglobin is 7.9. Creatinine has been slightly rising 1.51 on admission which is about his baseline, today his creatinine is 1.97 with a BUN of 95. Legionella antigen has been negative MARISA screen has been negative rheumatoid factor is negative patient continues to complain of shortness of breath, intermittent cough, and wheezing. Patient was seen today on 08/11/2024, remains in the ICU, remains on BiPAP, patient is down on FiO2 to 50%, so he is on BiPAP 12//50%. Clinically the patient is feeling better breathing easier, remains on empiric antibiotics including cefepime and Levaquin remains on Lasix 40 mg every 12 hours remains on steroids, and today I have noticed probably minimal improvement in his chest x- ray findings. Hence we will continue the same and will make Lasix 40 mg twice daily instead of 40 mg daily. WBC count is 22.8 hemoglobin 7.4 electrolytes are normal BUN is 117 creatinine 2.11 Patient was seen today on 08/12/2024, patient is feeling better today, remains on BiPAP, however he is down to 40%, chest x-ray is showing definite improvement in comparison to previous x-rays of the chest. Patient remains on diuretics r emains on antibiotics and remains on steroids, hence I have no plans to cut down on his diuretics at this point specially with his improvement clinically and improvement noted on the chest x-ray. As a matter fact I was able to discontinue BiPAP, and I placed the patient on a high flow nasal cannula 10 L and he is saturating anywhere between 97 to 99%. Creatinine is noted to be a bit higher today 2.28, his BUN is 125, his WBC count remains elevated at 18.1, hemoglobin is 7. Patient remains quite edematous, and he remains on diuretics in the form of Lasix and Aldactone. Patient was seen today on 08/13/2024, basically about the same, hemoglobin is low and the patient will receive 1 unit of packed RBCs today. Last night he had to go back on BiPAP, although he was tried on high flow nasal cannula throughout the day yesterday, Desaturating and kept getting anxious and agitated, then he w as placed on BiPAP overnight, and he remains on BiPAP 12/5/50%. Hemoglobin today is 6.2, had some recommending at least a unit of packed RBCs. Chest x-ray continues to show bilateral interstitial edema/infiltrates. Patient remains on cefepime, IV fluids at KVO, remains on diuretics. Renal functioning is holding and not showing any significant change. Seen today on 08/14/2024, patient was on BiPAP at night, however earlier this morning he was placed down to 8 L high flow nasal cannula. Saturating at 93 to 95%. He was on BiPAP 12/5/50% last time. Remains on Lasix 40 mg IV push twice daily remains on Solu-Medrol 60 every 6 remains on cefepime. Patient has been on Sporanox. Some improvement today compared to the last few days, no chest x- ray was done, but the patient seems to be more comfortable on high flow nasal cannula compared to BiPAP. Continues to have leukocytosis but improving with WBC of 16.5 electrolytes are normal bicarb is normal BUN is 123 creatinine 2.33 blood sugar is 305. Patient was seen today on 08/15/2024, remains in the ICU, presently on 15 L high flow nasal cannula, he was on BiPAP 12/50% last night. Patient is also on insulin drip 7 units/h for elevated blood sugar, cefepime Lasix 40 mg twice daily and today I cut down his Solu-Medrol to 40 mg IV push every 12 hours. Chest x-ray continues to show edema/infiltrates at the base of his lungs, howeve r overall his chest x-ray is much better now compared to his initial chest x-ray on admission. Clinical improvement but not quite ready to be transferred out of the ICU today, patient remains marginal in spite of the improvement noted. And he has very complex multiple medical issues being addressed. WBC count today is a bit higher at 19.9 hemoglobin is holding at 7.2 electrolytes are normal BUN is 118 creatinine 2.37 slightly higher. Patient remains in negative fluid balance. Objective - Vital Signs Vital signs: Vital Signs Temp 96.8 F L 08/15/24 08:00 Pulse 70 08/15/24 10:00 Resp 13 08/15/24 10:00 BP 132/71 08/15/24 10:00 Pulse Ox 94 L 08/15/24 10:00 FiO2 50 08/15/24 04:40 Intake & Output 08/14/24 08/15/24 08/15/24 18:59 06:59 18:59 Intake Total 2778.514 915.189 260 Output Total 1500 1325 250 Balance 1278.514 -409.811 10 Weight 100.3 kg Intake: IV 135 120 20 .9 135 120 20 Intake, IV Titration 213.514 55.189 Amount Cefepime 2 gm In Sodium 100 Chloride 0.9% 100 ml @ 25 mls/hr IVPB Q12H [facility] Rx# :[id number] Insulin Regular 100 unit 113.514 55.189 In Sodium Chloride 0.9% 100 ml @ Titrate IV .Q0M [facility] Rx#:[id number] Oral 2430 740 240 Output: Urine 1500 1325 250 Other: Voiding Method External Catheter External Catheter - Exam GENERAL EXAM: 64-year-old white male obese , 15 L high flow nasal cannula HEAD: Normocephalic and atraumatic EYES: Normal reaction of pupils, equal size. NOSE: No evidence of epistaxis. THROAT: No erythema or exudates. NECK: No masses, no JVD. CHEST: No chest wall deformity. Lungs: Bibasilar crackles crackles at the bases persist. CVS: S1 and S2 normal with soft systolic murmur, regular rhythm. No other extra heart sounds ABDOMEN: No hepatosplenomegaly, active bowel sounds, no guarding or rigidity. SKIN: No rashes CENTRAL NERVOUS SYSTEM: Alert oriented x 3 no gross focal deficit EXTREMITIES: Trace of bipedal edema - Labs CBC & Chem 7: 08/15/24 03:54 08/15/24 03:54 Labs: Abnormal Lab Results - Last 24 Hours (Table) 08/14/24 08/14/24 08/14/24 Range/Units 12:22 13:33 15:09 WBC (3.8-10.6) k/uL RBC (4.30-5.90) m/uL Hgb (13.0-17.5) gm/dL Hct (39.0-53.0) % Sodium (137-145) mmol/L BUN (9-20) mg/dL Creatinine (0.66-1.25) mg/dL POC Glucose (mg/dL) 305 H 302 H 250 H (70-110) mg/dL Magnesium (1.6-2.3) mg/dL 08/14/24 08/14/24 08/14/24 Range/Units 20:07 21:54 23:16 WBC (3.8-10.6) k/uL RBC (4.30-5.90) m/uL Hgb (13.0-17.5) gm/dL Hct (39.0-53.0) % Sodium (137-145) mmol/L BUN (9-20) mg/dL Creatinine (0.66-1.25) mg/dL POC Glucose (mg/dL) 179 H 317 H 327 H (70-110) mg/dL Magnesium (1.6-2.3) mg/dL 08/15/24 08/15/24 08/15/24 Range/Units 00:17 01:12 02:12 WBC (3.8-10.6) k/uL RBC (4.30-5.90) m/uL Hgb (13.0-17.5) gm/dL Hct (39.0-53.0) % Sodium (137-145) mmol/L BUN (9-20) mg/dL Creatinine (0.66-1.25) mg/dL POC Glucose (mg/dL) 291 H 251 H 195 H (70-110) mg/dL Magnesium (1.6-2.3) mg/dL 08/15/24 08/15/24 08/15/24 Range/Units 03:12 03:54 03:54 WBC 19.9 H (3.8-10.6) k/uL RBC 2.35 L (4.30-5.90) m/uL Hgb 7.2 L (13.0-17.5) gm/dL Hct 21.7 L (39.0-53.0) % Sodium 135 L (137-145) mmol/L BUN 118 H* (9-20) mg/dL Creatinine 2.37 H (0.66-1.25) mg/dL POC Glucose (mg/dL) 134 H (70-110) mg/dL Magnesium 3.0 H (1.6-2.3) mg/dL 08/15/24 08/15/24 08/15/24 Range/Units 04:59 05:56 06:58 WBC (3.8-10.6) k/uL RBC (4.30-5.90) m/uL Hgb (13.0-17.5) gm/dL Hct (39.0-53.0) % Sodium (137-145) mmol/L BUN (9-20) mg/dL Creatinine (0.66-1.25) mg/dL POC Glucose (mg/dL) 117 H 187 H 165 H (70-110) mg/dL Magnesium (1.6-2.3) mg/dL 08/15/24 08/15/24 08/15/24 Range/Units 08:20 09:06 10:02 WBC (3.8-10.6) k/uL RBC (4.30-5.90) m/uL Hgb (13.0-17.5) gm/dL Hct (39.0-53.0) % Sodium (137-145) mmol/L BUN (9-20) mg/dL Creatinine (0.66-1.25) mg/dL POC Glucose (mg/dL) 173 H 183 H 177 H (70-110) mg/dL Magnesium (1.6-2.3) mg/dL Assessment and Plan Assessment: Impression: Acute on chronic hypoxic respiratory failure, multifactorial, I suspect this is mostly a picture of pulmonary edema, underlying pneumonia is not entirely ruled out. Hence the patient will remain on antibiotics and diuretics. Acute exacerbation of chronic systolic congestive heart failure, recent echocardiogram from 07/20/2024 estimating a left ventricular ejection fraction of 45 to 50%, moderate pulmonary hypertension, and moderate tricuspid regurgitation. Repeat echocardiogram showed improvement in LV function with ejection fraction 55% Acute leukocytosis Acute on chronic kidney disease Recent influenza A infection History of atrial fibrillation with previous cardioversion History of underlying COPD and chronic tobacco dependence Benign essential hypertension Type 2 diabetes Acute on chronic anemia patient will require a unit of packed RBCs to be transfused today. And will continue to monitor for any blood loss specially GI blood losses. Recommendation: Continue high flow nasal cannula, titrate FiO2 accordingly Continue Lasix Continue bronchodilators Cut down Solu-Medrol to 40 mg IV push every 12 hours as his sugars are running quite high Continue empiric antibiotics and antifungal patient is on cefepime, and itraconazole Continue to monitor in the ICU for now. Patient remains marginal Remains quite ill, prognosis remains guarded. Will continue to follow C Time with Patient: Less than 30
[2024-08-15 11:03] LABS: Glucose,Whole Blood 195 mg/dL (70-110)
--- NOTE | 2024-08-15 11:08 | P.PN ---
Subjective Patient is seen for follow-up for acute kidney injury. Currently maintained on Lasix Patient remains short of breath requiring BiPAP on and off. Oxygen requirement seems to have decreased. Serum creatinine at 2.3. BUN disproportionately elevated but down to 118 today. Patient is maintained on steroids. Objective - Vital Signs Vital signs: Vital Signs Temp 96.8 F L 08/15/24 08:00 Pulse 70 08/15/24 10:00 Resp 13 08/15/24 10:00 BP 132/71 08/15/24 10:00 Pulse Ox 94 L 08/15/24 10:00 FiO2 50 08/15/24 04:40 Intake & Output 08/14/24 08/15/24 08/15/24 18:59 06:59 18:59 Intake Total 2778.514 915.189 530 Output Total 1500 1325 725 Balance 1278.514 -409.811 -195 Weight 100.3 kg Intake: IV 135 120 50 .9 135 120 50 Intake, IV Titration 213.514 55.189 Amount Cefepime 2 gm In Sodium 100 Chloride 0.9% 100 ml @ 25 mls/hr IVPB Q12H [facility] Rx# :[id number] Insulin Regular 100 unit 113.514 55.189 In Sodium Chloride 0.9% 100 ml @ Titrate IV .Q0M [facility] Rx#:[id number] Oral 2430 740 480 Output: Urine 1500 1325 725 Other: Voiding Method External Catheter External Catheter - Exam Patient is awake, comfortable Maintained on BiPAP Examination of the heart S1 and S2 Examination of the lungs decreased breath sounds at the bases occasional wheezing heard bilaterally Abdomen is soft nontender Examination of lower extremities shows edema 1+ bilaterally, decreasing CLOTH DRIER exam grossly intact - Labs CBC & Chem 7: 08/15/24 03:54 08/15/24 03:54 Labs: Abnormal Lab Results - Last 24 Hours (Table) 08/14/24 08/14/24 08/14/24 Range/Units 12:22 13:33 15:09 WBC (3.8-10.6) k/uL RBC (4.30-5.90) m/uL Hgb (13.0-17.5) gm/dL Hct (39.0-53.0) % Sodium (137-145) mmol/L BUN (9-20) mg/dL Creatinine (0.66-1.25) mg/dL POC Glucose (mg/dL) 305 H 302 H 250 H (70-110) mg/dL Magnesium (1.6-2.3) mg/dL 08/14/24 08/14/24 08/14/24 Range/Units 20:07 21:54 23:16 WBC (3.8-10.6) k/uL RBC (4.30-5.90) m/uL Hgb (13.0-17.5) gm/dL Hct (39.0-53.0) % Sodium (137-145) mmol/L BUN (9-20) mg/dL Creatinine (0.66-1.25) mg/dL POC Glucose (mg/dL) 179 H 317 H 327 H (70-110) mg/dL Magnesium (1.6-2.3) mg/dL 08/15/24 08/15/24 08/15/24 Range/Units 00:17 01:12 02:12 WBC (3.8-10.6) k/uL RBC (4.30-5.90) m/uL Hgb (13.0-17.5) gm/dL Hct (39.0-53.0) % Sodium (137-145) mmol/L BUN (9-20) mg/dL Creatinine (0.66-1.25) mg/dL POC Glucose (mg/dL) 291 H 251 H 195 H (70-110) mg/dL Magnesium (1.6-2.3) mg/dL 08/15/24 08/15/24 08/15/24 Range/Units 03:12 03:54 03:54 WBC 19.9 H (3.8-10.6) k/uL RBC 2.35 L (4.30-5.90) m/uL Hgb 7.2 L (13.0-17.5) gm/dL Hct 21.7 L (39.0-53.0) % Sodium 135 L (137-145) mmol/L BUN 118 H* (9-20) mg/dL Creatinine 2.37 H (0.66-1.25) mg/dL POC Glucose (mg/dL) 134 H (70-110) mg/dL Magnesium 3.0 H (1.6-2.3) mg/dL 08/15/24 08/15/24 08/15/24 Range/Units 04:59 05:56 06:58 WBC (3.8-10.6) k/uL RBC (4.30-5.90) m/uL Hgb (13.0-17.5) gm/dL Hct (39.0-53.0) % Sodium (137-145) mmol/L BUN (9-20) mg/dL Creatinine (0.66-1.25) mg/dL POC Glucose (mg/dL) 117 H 187 H 165 H (70-110) mg/dL Magnesium (1.6-2.3) mg/dL 08/15/24 08/15/24 08/15/24 Range/Units 08:20 09:06 10:02 WBC (3.8-10.6) k/uL RBC (4.30-5.90) m/uL Hgb (13.0-17.5) gm/dL Hct (39.0-53.0) % Sodium (137-145) mmol/L BUN (9-20) mg/dL Creatinine (0.66-1.25) mg/dL POC Glucose (mg/dL) 173 H 183 H 177 H (70-110) mg/dL Magnesium (1.6-2.3) mg/dL 08/15/24 Range/Units 11:01 WBC (3.8-10.6) k/uL RBC (4.30-5.90) m/uL Hgb (13.0-17.5) gm/dL Hct (39.0-53.0) % Sodium (137-145) mmol/L BUN (9-20) mg/dL Creatinine (0.66-1.25) mg/dL POC Glucose (mg/dL) 195 H (70-110) mg/dL Magnesium (1.6-2.3) mg/dL Assessment and Plan Assessment: 1. Acute renal injury, ATN associated with underlying infection and borderline low blood pressures in the setting of use of SAGAR inhibitors. May continue with IV diuretics. Ultrasound shows no evidence of obstruction. UA is benign. BUN disproportionately elevated secondary to steroids and possible GI bleed 2. Acute hypoxic respiratory failure secondary to pneumonia and volume overload 3. Volume overload 4. CHF with preserved ejection fraction of 55 to 60% noted this admission 5. Hypervolemic hyponatremia. Patient was also maintained on hypotonic IV flui ds which contributed to the hyponatremia, now improved 6. Influenza A infection status post Tamiflu during previous hospitalization about 4 weeks ago 7. Anemia rule out GI bleed, status post transfusion of packed RBCs for hemoglobin 6.2. No active bleeding noted. Plan: Continue with Lasix. BUN is disproportionately elevated from steroids and possible underlying GI bleed. Try Biotene gum/toothpaste for dry mouth and frozen grapes Repeat labs in a.m. Continue off of SAGAR inhibitors Continue with Aldactone Continue to avoid nephrotoxic agents
[2024-08-15 11:51] LABS: Glucose,Whole Blood 173 mg/dL (70-110)
[2024-08-15 13:11] LABS: Glucose,Whole Blood 148 mg/dL (70-110)
[2024-08-15 14:55] LABS: Glucose,Whole Blood 122 mg/dL (70-110)
[2024-08-15 16:56] LABS: Glucose,Whole Blood 213 mg/dL (70-110)
[2024-08-15 18:04] LABS: Glucose,Whole Blood 264 mg/dL (70-110)
[2024-08-15 19:04] LABS: Glucose,Whole Blood 275 mg/dL (70-110)
[2024-08-15 20:04] LABS: Glucose,Whole Blood 290 mg/dL (70-110)
[2024-08-15] MEDS: methylPREDNISolone SOD SUCCI 40 MG/ML 1 ML VIAL IV SCH (20:16)
[2024-08-15 21:09] LABS: Glucose,Whole Blood 268 mg/dL (70-110)
[2024-08-15 22:15] LABS: Glucose,Whole Blood 220 mg/dL (70-110)
[2024-08-15 23:12] LABS: Glucose,Whole Blood 176 mg/dL (70-110)
[2024-08-16 00:09] LABS: Glucose,Whole Blood 145 mg/dL (70-110)
[2024-08-16 01:02] LABS: Glucose,Whole Blood 97 mg/dL (70-110)
[2024-08-16 01:59] LABS: Glucose,Whole Blood 135 mg/dL (70-110)
[2024-08-16 02:59] LABS: Glucose,Whole Blood 187 mg/dL (70-110)
[2024-08-16 04:08] LABS: Glucose,Whole Blood 211 mg/dL (70-110)
[2024-08-16 05:09] LABS: Glucose,Whole Blood 216 mg/dL (70-110)
[2024-08-16 06:01] LABS: HGB 7.3 gm/dL (13.0-17.5); Hypochromasia Slight; MCH 30.8 pg (25.0-35.0); MCHC 33.2 g/dL (31.0-37.0); MCV 92.7 fL (80.0-100.0); Mean Platelet Volume 10.6; Platelet Count 166 k/uL (150-450); RBC 2.38 m/uL (4.30-5.90); RDW 13.6 % (11.5-15.5); WBC 20.6 k/uL (3.8-10.6)
[2024-08-16 06:10] LABS: Glucose,Whole Blood 222 mg/dL (70-110)
[2024-08-16 06:12] LABS: African American GFR (CKD) 35 (>60 ml/min/1.73 sqM); Anion Gap 6 mmol/L; Calcium 8.6 mg/dL (8.4-10.2); Carbon Dioxide 25 mmol/L (22-30); Chloride 102 mmol/L (98-107); Glucose 179 mg/dL (74-99); Magnesium 2.9 mg/dL (1.6-2.3); Non-African American GFR(CKD) 30 (>60 ml/min/1.73 sqM); Potassium 4.1 mmol/L (3.5-5.1); Sodium 133 mmol/L (137-145)
[2024-08-16 06:29] LABS: Blood Urea Nitrogen 118 mg/dL (9-20)
[2024-08-16 07:04] LABS: Glucose,Whole Blood 202 mg/dL (70-110)
--- NOTE | 2024-08-16 07:14 | XR ---
EXAMINATION TYPE: XR chest 1V portable DATE OF EXAM: 08/16/2024 CLINICAL INDICATION: Male, 64 years old with history of distress, progress study. TECHNIQUE: Single AP portable upright view of the chest is obtained. COMPARISON: Chest x-ray from one day earlier and older studies. FINDINGS: Persistent cardiomegaly with bilateral increased opacities greatest in the lower lungs. Os seous structures are intact. IMPRESSION: Cardiomegaly with bilateral acute infiltrates and/or edema redemonstrated. No significant change from one day earlier. [facility], , 08/16/2024 7:12 AM
--- NOTE | 2024-08-16 09:04 | P.PN ---
Subjective Patient is a 64-year-old male with a PMH of atrial fibrillation on Eliquis, COPD on 2 L home oxygen, [id number] diabetes mellitus, hyperlipidemia, hypertension presenting with shortness of breath. Patient was previously admitted here for acute hypoxic respiratory failure secondary to influenza pneumonia and was discharged on 2 L of home oxygen. Patient states he has been feeling short of breath while at rest. He reports that since being discharged the home oxygen has not been sufficient. He states that he had to keep increasing his oxygen. Patient says shortness of breath is slightly relieved when he is laying down. Denies any orthopnea or PND. Patient endorses a nonproductive cough that is chronic in nature, but says it has been getting worse. Patient admits to having fever, chills. Patient also admits to having non-radiating, pressure-like chest pain over the last few days. Chest pain is not related to exertion and he had no alleviating or aggravating factors. Patient denies any headache, vision changes, nausea, vomiting, diarrhea, abdominal pain, urinary symptoms. EKG independently interpreted displaying sinus rhythm with left bundle branch block that has been seen on prior EKG, rate 65 bpm, QTc 451 ms CXR independently interpreted displaying bilateral multifocal airspace opacities Chest CTA displaying acute segmental and subsegmental pulmonary emboli within the right and middle lower lobes, no saddle embolus, no RV strain, chronic interstitial loading disease Venous Doppler B/L LE displaying no evidence of acute DVT Troponin 0.049, 0.055, proBNP 8810, D-dimer 4.87, WBC 22.6, Hgb 11.0, HCT 35.2, MCV 93.7, platelet 322, PT 11.8, INR 1.1, APTT 28, sodium 133, potassium 4.2, CO2 24, BUN 30, creatinine 1.27, glucose 135 VBG pH 7.52, pCO2 32 T98.2 F, VT 80, RR 26, BP 163/77, O2 sat 90% on BiPAP with FiO2 of 100% August 05: Overflow the ER. Up in the bed. Short of breath. Patient was on BiP AP overnight. This morning on 15 L high flow nasal cannula. Decreased appetite. Has got a cough. Some wheezing. Some sputum production. Decreased appetite. Patient is on IV heparin. Also on IV cefepime. Pulmonary following August 06: Patient did confirm that because Eliquis is very expensive patient was not taking it properly did and take it sparingly at home. Explains patient's PE. Started on Eliquis today by cardiology. IV heparin discontinued. Getting easily short of breath. Requiring BiPAP.. Some cough. Oral intake fair. On IV cefepime and vancomycin. ID following. Also on IV Lasix. Due to worsening renal function will DC vancomycin August 07: Saw this afternoon. On BiPAP. 60%. Ensure ordered. All blood work ordered by pulmonary including fungal. Patient currently on IV cefepime and Levaquin. IV Solu-Medrol. Remain short of breath. Tired. Being followed by pulmonary and ID. Chest x-ray film personally reviewed by me-showing pulm edema bilateral infiltrates especially at the bases. Renal ultrasound nonspecific. UA showing protein 1+. August 08: Remain short of breath. Sitting up in bed. Not able to come off the BiPAP. Remains on IV cefepime. Accu-Cheks running high. Put on insulin drip. On IV Solu-Medrol. Oral intake fair. August 09: Patient remains short of breath. Unable to get off BiPAP. FiO2 increased to 70%. 04/30. Per Dr. Goode: Patient be moved to the ICU. Poor oral intake. Remains on insulin drip. IV Solu-Medrol. Eliquis. IV cefepime and Levaquin. Tired. Sitting up in bed leaning forward short of breath. Chest x-ray film personally reviewed by me: Scattered bilateral infiltrates August 10: ICU. Remains on BiPAP. Decreased oral intake. Sitting up. Short of breath. On IV cefepime. Insulin drip. IV Solu-Medrol. DuoNeb Q4. Rather tired. Also yesterday evening at epistaxis. Nasal packing. August 11: ICU. Mostly been on BiPAP. High flow nasal cannula. Decreased oral intake. Sitting up leaning forward. Remains on IV cefepime or Levaquin insulin drip. A bit tired. Patient has very poor oral intake. Per tourist information officer patient will IV Lasix. Note worsening renal function-cut back to Lasix once a day. Given blood pressure running lower side. DC Aldactone and DC amlodipine. August 12: ICU. Patient was taken off BiPAP this morning. Decreased to high flow nasal cannula 10 L. at the bedside. Encourage oral intake. Chopped diet. Per tourist information officer nephrology patient to continue on IV Lasix. Blood pressure better after stopping amlodipine and Aldactone yesterday. Encourage oral intake. Incentive spirometry. IV cefepime, Levaquin, I terconazole per ID. August 13: ICU. Yesterday patient was nasal cannula. Overnight repeat put back on BiPAP. Patient did drop his hemoglobin further. Down to 6.2. [place] to be from epistaxis. Given a unit of blood. Further increase in BUN/creatinine. Remains on IV Lasix. Ordered Kerlix to both the lower extremities. Had a good portion of his lunch today. August 14: ICU. Patient seen this morning. 15 L nasal cannula. Reclining in bed. Short of breath. [place] wrap lower extremity. Patient remains on IV cefepime, IV Lasix 40 mg every 12, insulin drip, IV Solu-Medrol DuoNeb Q4. Did not eat breakfast but had about 100% of his lunch. 08/15/2024, resume the care of the patient today. Patient seen and examined in the ICU. His not tolerating his BiPAP mask more than 1 hour, currently his mildly/moderately tachypneic on 15 L oxygen via nonrebreather. He has apparent swelling of both arms and legs, sitting up in chair feels tired denies chest pain. Patient also on insulin drip at 7 units/h. 08/16 Patient looks similar to yesterday although reports some improvement in his breathing. He used the BiPAP last night which might contributed to his feeling of improvement. He still on IV Lasix 40 mg lowered the dose to twice daily and IV Solu-Medrol 40 mg lowered the dose to 40 mg twice daily. He has more than 1.5 L out since yesterday. He is still on fluid restriction and feels thirsty. His WBC is 20,000 compared to 19.9 yesterday while he is on steroids. Hemoglobin stable at 7.3, creatinine stable at 2.2. Also remains on IV cefepime and itraconazole for possible pneumonia Review of systems CONSTITUTIONAL: No fever, no malaise, no fatigue. HEENT: No recent visual problems or hearing problems. Denied any sore throat. CARDIOVASCULAR: No orthopnea, PND, no palpitations, no syncope. GENITOURINARY: Denies any burning micturition, frequency, or urgency. MUSCULOSKELETAL/RHEUMATOLOGICAL: Denies any joint pain, swelling, or any muscle pain. ENDOCRINE: Denies any polyuria or polydipsia. Active Medications Generic Name Dose Route Start Last Admin Trade Name Freq PRN Reason Stop Dose Admin Albuterol/Ipratropium 3 ml 08/05/24 03:08 Ipratropium-Albuterol 3 Ml Neb INHALATION RT-QID PRN Shortness Of Breath Or Wheezing Albuterol/Ipratropium 3 ml 08/05/24 04:00 08/16/24 07:48 Ipratropium-Albuterol 3 Ml Neb INHALATION 3 ml RT-Q4H MALVIN Administration Alprazolam 0.5 mg 08/06/24 15:52 08/15/24 08:49 Alprazolam 0.5 Mg Tab PO 0.5 mg TID PRN Administration Anxiety Artificial Tears 1 drops 08/14/24 13:35 Artificial Tears-Hypromellose Drops 15 Ml Btl BOTH EYES QID PRN Dry Eye(s) Aspirin 81 mg 08/06/24 09:00 08/15/24 08:49 Aspirin 81 Mg PO 81 mg DAILY MALVIN Administration Budesonide 1 mg 08/05/24 08:00 08/16/24 07:48 Budesonide 1 Mg/2 Ml Nebu INHALATION 1 mg RT-BID MALVIN Administration Dextrose/Water 25 ml 08/08/24 17:27 Dextrose 50% Syringe 50 Ml IVP PER PROTOCOL PRN Hypoglycemia Protocol Dextrose/Water 50 ml 08/08/24 17:27 Dextrose 50% Syringe 50 Ml IVP PER PROTOCOL PRN Hypoglycemia Protocol Formoterol Fumarate 20 mcg 08/05/24 08:00 08/16/24 07:48 Formoterol Fumarate 20 Mcg/2 Ml Nebu INHALATION 20 mcg RT-BID MALVIN Administration Furosemide 40 mg 08/12/24 21:00 08/15/24 20:16 Furosemide 10 Mg/Ml 4 Ml Vial IV 40 mg Q12HR MALVIN Administration Cefepime HCl 2 gm/ Sodium 100 mls @ 25 mls/hr 08/05/24 22:00 08/15/24 20:14 Chloride IVPB 25 mls/hr Q12H MALVIN Administration Protocol Insulin Human Regular 100 unit 100 mls @ 0 mls/hr 08/08/24 17:30 08/16/24 06:13 / Sodium Chloride IV 5 units/hr .Q0M MALVIN 5 mls/hr Titration Protocol Titrate Itraconazole 200 mg 08/07/24 13:00 08/15/24 20:16 Itraconazole 100 Mg Cap PO 200 mg BID MALVIN Administration Protocol Lactulose 20 gm 08/14/24 13:36 08/15/24 08:49 Lactulose 20 Gm/30 Ml Cup PO 20 gm TID PRN Administration Constipation Lorazepam 1 mg 08/05/24 23:31 08/12/24 20:45 Lorazepam 1 Mg Tab PO 1 mg HS PRN Administration Anxiety Methylprednisolone Sodium Succinate 40 mg 08/15/24 21:00 08/15/24 20:16 Methylprednisolone Sod Succi 40 Mg/Ml 1 Ml Vial IV 40 mg Q12HR AMLVIN Administration Metoprolol Succinate 25 mg 08/06/24 09:00 08/15/24 08:49 Metoprolol Succinate (Er) 25 Mg Tab.Er.24h PO 25 mg DAILY MALVIN Administration Morphine Sulfate 4 mg 08/04/24 23:15 08/16/24 00:25 Morphine Sulfate 4 Mg/Ml Syringe IV 4 mg Q4HR PRN Administration Severe Pain (Scale 7 to 10) Naloxone HCl 0.2 mg 08/04/24 23:15 Naloxone 0.4 Mg/Ml 1 Ml Vial IV Q2M PRN Opioid Reversal Ondansetron HCl 4 mg 08/04/24 23:15 08/07/24 14:52 Ondansetron 4 Mg/2 Ml Vial IVP 4 mg Q8HR PRN Administration Nausea And Vomiting Oxymetazoline HCl 2 spray 08/09/24 00:45 08/15/24 20:16 Oxymetazoline 0.05% Nasl [place] 1 [place] NASAL 2 spray BID MALVIN Administration Pantoprazole Sodium 40 mg 08/12/24 07:30 08/16/24 06:14 Pantoprazole 40 Mg Tablet PO 40 mg AC-[id number] MALVIN Administration Sodium Chloride 2 spray 08/08/24 10:58 Sodium Chloride 0.65% Nasal [place] 44 Ml Btl NASAL QID PRN Dry Nasal Passages Objective - Vital Signs Vital signs: Vital Signs Temp 97.4 F L 08/16/24 04:00 Pulse 72 08/16/24 08:14 Resp 13 08/16/24 07:00 BP 127/55 08/16/24 07:00 Pulse Ox 96 08/16/24 07:00 FiO2 50 08/15/24 04:40 Intake & Output 08/15/24 08/16/24 08/16/24 18:59 06:59 18:59 Intake Total 3535.837 6065.741 10 Output Total 1425 1750 Balance 65.376 -706.259 10 Weight 101.9 kg Intake: IV 120 80 10 .9 120 80 10 Intake, IV Titration 160.376 153.741 Amount Cefepime 2 gm In Sodium 100 100 Chloride 0.9% 100 ml @ 25 mls/hr IVPB Q12H MALVIN Rx# :[id number] Insulin Regular 100 unit 60.376 53.741 In Sodium Chloride 0.9% 100 ml @ Titrate IV .Q0M MALVIN Rx#:[id number] Oral 1210 810 Output: Urine 1425 1750 Other: Voiding Method External Catheter External Catheter - Exam GENERAL: The patient is alert and oriented x3, not in any acute distress. Well developed, well nourished. HEENT: Pupils are round and equally reacting to light. EOMI. No scleral icterus. No conjunctival pallor. Normocephalic, atraumatic. No pharyngeal erythema. No thyromegaly. CARDIOVASCULAR: S1 and S2 present. No murmurs, rubs, or gallops. -PULMONARY: Chest is clear to auscultation, no wheezing , n bilateral basal crackles. ABDOMEN: Soft, nontender, nondistended, normoactive bowel sounds. No palpable organomegaly. MUSCULOSKELETAL: No joint swelling or deformity. -EXTREMITIES: No cyanosis, clubbing, bilateral arm and leg pitting leg edema NEUROLOGICAL: Gross neurological examination did not reveal any focal deficits. SKIN: No rashes. no petechiae. - Labs CBC & Chem 7: 08/16/24 05:48 08/16/24 05:48 Labs: Abnormal Lab Results - Last 24 Hours (Table) 08/15/24 08/15/24 08/15/24 Range/Units 09:06 10:02 11:01 WBC (3.8-10.6) k/uL RBC (4.30-5.90) m/uL Hgb (13.0-17.5) gm/dL Hct (39.0-53.0) % Sodium (137-145) mmol/L BUN (9-20) mg/dL Creatinine (0.66-1.25) mg/dL Glucose (74-99) mg/dL POC Glucose (mg/dL) 183 H 177 H 195 H (70-110) mg/dL Magnesium (1.6-2.3) mg/dL 08/15/24 08/15/24 08/15/24 Range/Units 11:46 13:09 14:53 WBC (3.8-10.6) k/uL RBC (4.30-5.90) m/uL Hgb (13.0-17.5) gm/dL Hct (39.0-53.0) % Sodium (137-145) mmol/L BUN (9-20) mg/dL Creatinine (0.66-1.25) mg/dL Glucose (74-99) mg/dL POC Glucose (mg/dL) 173 H 148 H 122 H (70-110) mg/dL Magnesium (1.6-2.3) mg/dL 08/15/24 08/15/24 08/15/24 Range/Units 16:55 18:02 19:02 WBC (3.8-10.6) k/uL RBC (4.30-5.90) m/uL Hgb (13.0-17.5) gm/dL Hct (39.0-53.0) % Sodium (137-145) mmol/L BUN (9-20) mg/dL Creatinine (0.66-1.25) mg/dL Glucose (74-99) mg/dL POC Glucose (mg/dL) 213 H 264 H 275 H (70-110) mg/dL Magnesium (1.6-2.3) mg/dL 08/15/24 08/15/24 08/15/24 Range/Units 20:03 21:07 22:13 WBC (3.8-10.6) k/uL RBC (4.30-5.90) m/uL Hgb (13.0-17.5) gm/dL Hct (39.0-53.0) % Sodium (137-145) mmol/L BUN (9-20) mg/dL Creatinine (0.66-1.25) mg/dL Glucose (74-99) mg/dL POC Glucose (mg/dL) 290 H 268 H 220 H (70-110) mg/dL Magnesium (1.6-2.3) mg/dL 08/15/24 08/16/24 08/16/24 Range/Units 23:11 00:07 01:57 WBC (3.8-10.6) k/uL RBC (4.30-5.90) m/uL Hgb (13.0-17.5) gm/dL Hct (39.0-53.0) % Sodium (137-145) mmol/L BUN (9-20) mg/dL Creatinine (0.66-1.25) mg/dL Glucose (74-99) mg/dL POC Glucose (mg/dL) 176 H 145 H 135 H (70-110) mg/dL Magnesium (1.6-2.3) mg/dL 08/16/24 08/16/24 08/16/24 Range/Units 02:58 04:03 05:08 WBC (3.8-10.6) k/uL RBC (4.30-5.90) m/uL Hgb (13.0-17.5) gm/dL Hct (39.0-53.0) % Sodium (137-145) mmol/L BUN (9-20) mg/dL Creatinine (0.66-1.25) mg/dL Glucose (74-99) mg/dL POC Glucose (mg/dL) 187 H 211 H 216 H (70-110) mg/dL Magnesium (1.6-2.3) mg/dL 08/16/24 08/16/24 08/16/24 Range/Units 05:48 05:48 06:08 WBC 20.6 H (3.8-10.6) k/uL RBC 2.38 L (4.30-5.90) m/uL Hgb 7.3 L (13.0-17.5) gm/dL Hct 22.0 L (39.0-53.0) % Sodium 133 L (137-145) mmol/L BUN 118 H* (9-20) mg/dL Creatinine 2.22 H (0.66-1.25) mg/dL Glucose 179 H (74-99) mg/dL POC Glucose (mg/dL) 222 H (70-110) mg/dL Magnesium 2.9 H (1.6-2.3) mg/dL 08/16/24 Range/Units 07:02 WBC (3.8-10.6) k/uL RBC (4.30-5.90) m/uL Hgb (13.0-17.5) gm/dL Hct (39.0-53.0) % Sodium (137-145) mmol/L BUN (9-20) mg/dL Creatinine (0.66-1.25) mg/dL Glucose (74-99) mg/dL POC Glucose (mg/dL) 202 H (70-110) mg/dL Magnesium (1.6-2.3) mg/dL Assessment and Plan Assessment: #. Acute pulmonary embolism, non-massive [segmental and subsegmental within the right middle and lower lobes. No RV strain Initially IV heparin, currently on o Eliquis #. Sepsis likely secondary to -viral pneumonia. Secondary bacterial component IV cefepime. Levaquin discontinued on August 12..-also has been on itraconazole started on the August 07 ID and pulmonary following #. Acute hypoxic respiratory failure, secondary to above: Slow to respond Intermittently BiPAP, currently 15 L nasal cannula #. Acute COPD exacerbation, in a prior smoker: Some improvement DuoNeb Q4. IV Solu-Medrol 60 mg Q6. Nebulized Pulmicort #. Acute on chronic heart failure with reduced ejection fraction (EF 45 to 50 %): Some improvement IV Lasix 40 mg every 12. Aldactone-discontinued. #. Chronic hypoxic respiratory failure from underlying COPD, 2 L home O2 -Acute kidney injury, likely ATN multifactorial, worsening Admission creatinine 1.27. #. Hdy-qneocwg-nzqolwhpy type 2 diabetes, uncontrolled with hyperglycemia secondary steroids: Not improving Insulin subcu sliding scale. Stop Levemir. Continues on insulin drip Accu-Cheks ACHS - chronic kidney disease stage III from nephrosclerosis and diabetic nephropathy [creatinine 1.63 in October 2022] Renal ultrasound.: Suboptimal study. No corticomedullary comment. UA protein 1+ -Recent influenza type A #. Essential hypertension- Toprol-XL. Other antihypertensives have been held #. Hyperlipidemia Lipitor -Full code On IV Lasix., IV cefepime, Itroconazole, IV Solu-Medrol 60 mg. Had a good lunch. IV insulin
[2024-08-16 09:49] LABS: Glucose,Whole Blood 258 mg/dL (70-110)
--- NOTE | 2024-08-16 11:11 | P.PN ---
Subjective Patient is seen for follow-up for acute kidney injury. Currently maintained on IV Lasix Patient remains short of breath requiring BiPAP on and off. Oxygen requirements have decreased. Serum creatinine at 2.2. BUN disproportionately elevated but down to 118 today. Patient is maintained on steroids. Objective - Vital Signs Vital signs: Vital Signs Temp 97.4 F L 08/16/24 04:00 Pulse 72 08/16/24 08:14 Resp 13 08/16/24 07:00 BP 127/55 08/16/24 07:00 Pulse Ox 96 08/16/24 07:00 FiO2 50 08/15/24 04:40 Intake & Output 08/15/24 08/16/24 08/16/24 18:59 06:59 18:59 Intake Total 6355.007 1778.741 28.083 Output Total 1425 1750 Balance 65.376 -706.259 28.083 Weight 101.9 kg Intake: IV 120 80 10 .9 120 80 10 Intake, IV Titration 160.376 153.741 18.083 Amount Cefepime 2 gm In Sodium 100 100 Chloride 0.9% 100 ml @ 25 mls/hr IVPB Q12H MALVIN Rx# :[id number] Insulin Regular 100 unit 60.376 53.741 18.083 In Sodium Chloride 0.9% 100 ml @ Titrate IV .Q0M MALVIN Rx#:[id number] Oral 1210 810 Output: Urine 1425 1750 Other: Voiding Method External Catheter External Catheter - Exam Patient is awake, comfortable Examination of the heart S1 and S2 Examination of the lungs decreased breath sounds at the bases occasional wheezing heard bilaterally Abdomen is soft nontender Examination of lower extremities shows edema 1+ bilaterally, decreasing SPEECH LANGUAGE THERAPIST exam grossly intact - Labs CBC & Chem 7: 08/16/24 05:48 08/16/24 05:48 Labs: Abnormal Lab Results - Last 24 Hours (Table) 08/15/24 08/15/24 08/15/24 Range/Units 11:46 13:09 14:53 WBC (3.8-10.6) k/uL RBC (4.30-5.90) m/uL Hgb (13.0-17.5) gm/dL Hct (39.0-53.0) % Sodium (137-145) mmol/L BUN (9-20) mg/dL Creatinine (0.66-1.25) mg/dL Glucose (74-99) mg/dL POC Glucose (mg/dL) 173 H 148 H 122 H (70-110) mg/dL Magnesium (1.6-2.3) mg/dL 08/15/24 08/15/24 08/15/24 Range/Units 16:55 18:02 19:02 WBC (3.8-10.6) k/uL RBC (4.30-5.90) m/uL Hgb (13.0-17.5) gm/dL Hct (39.0-53.0) % Sodium (137-145) mmol/L BUN (9-20) mg/dL Creatinine (0.66-1.25) mg/dL Glucose (74-99) mg/dL POC Glucose (mg/dL) 213 H 264 H 275 H (70-110) mg/dL Magnesium (1.6-2.3) mg/dL 08/15/24 08/15/24 08/15/24 Range/Units 20:03 21:07 22:13 WBC (3.8-10.6) k/uL RBC (4.30-5.90) m/uL Hgb (13.0-17.5) gm/dL Hct (39.0-53.0) % Sodium (137-145) mmol/L BUN (9-20) mg/dL Creatinine (0.66-1.25) mg/dL Glucose (74-99) mg/dL POC Glucose (mg/dL) 290 H 268 H 220 H (70-110) mg/dL Magnesium (1.6-2.3) mg/dL 08/15/24 08/16/24 08/16/24 Range/Units 23:11 00:07 01:57 WBC (3.8-10.6) k/uL RBC (4.30-5.90) m/uL Hgb (13.0-17.5) gm/dL Hct (39.0-53.0) % Sodium (137-145) mmol/L BUN (9-20) mg/dL Creatinine (0.66-1.25) mg/dL Glucose (74-99) mg/dL POC Glucose (mg/dL) 176 H 145 H 135 H (70-110) mg/dL Magnesium (1.6-2.3) mg/dL 08/16/24 08/16/24 08/16/24 Range/Units 02:58 04:03 05:08 WBC (3.8-10.6) k/uL RBC (4.30-5.90) m/uL Hgb (13.0-17.5) gm/dL Hct (39.0-53.0) % Sodium (137-145) mmol/L BUN (9-20) mg/dL Creatinine (0.66-1.25) mg/dL Glucose (74-99) mg/dL POC Glucose (mg/dL) 187 H 211 H 216 H (70-110) mg/dL Magnesium (1.6-2.3) mg/dL 08/16/24 08/16/24 08/16/24 Range/Units 05:48 05:48 06:08 WBC 20.6 H (3.8-10.6) k/uL RBC 2.38 L (4.30-5.90) m/uL Hgb 7.3 L (13.0-17.5) gm/dL Hct 22.0 L (39.0-53.0) % Sodium 133 L (137-145) mmol/L BUN 118 H* (9-20) mg/dL Creatinine 2.22 H (0.66-1.25) mg/dL Glucose 179 H (74-99) mg/dL POC Glucose (mg/dL) 222 H (70-110) mg/dL Magnesium 2.9 H (1.6-2.3) mg/dL 08/16/24 08/16/24 Range/Units 07:02 09:46 WBC (3.8-10.6) k/uL RBC (4.30-5.90) m/uL Hgb (13.0-17.5) gm/dL Hct (39.0-53.0) % Sodium (137-145) mmol/L BUN (9-20) mg/dL Creatinine (0.66-1.25) mg/dL Glucose (74-99) mg/dL POC Glucose (mg/dL) 202 H 258 H (70-110) mg/dL Magnesium (1.6-2.3) mg/dL Assessment and Plan Assessment: 1. Acute renal injury, ATN associated with underlying infection and borderline low blood pressures in the setting of use of SAGAR inhibitors. May continue with IV diuretics. Ultrasound shows no evidence of obstruction. UA is benign. BUN disproportionately elevated secondary to steroids and possible GI bleed 2. Acute hypoxic respiratory failure secondary to pneumonia and volume overload 3. Volume overload 4. CHF with preserved ejection fraction of 55 to 60% noted this admission 5. Hypervolemic hyponatremia. Patient was also maintained on hypotonic IV fluids which contributed to the hyponatremia, now improved 6. Influenza A infection status post Tamiflu during previous hospitalization about 4 weeks ago 7. Anemia rule out GI bleed, status post transfusion of packed RBCs for hemoglobin 6.2. No active bleeding noted. Plan: Continue with Lasix. BUN is disproportionately elevated from steroids and pos sible underlying GI bleed. Try Biotene gum/toothpaste for dry mouth and frozen grapes Repeat labs in a.m. Continue off of SAGAR inhibitors Continue with Aldactone Continue to avoid nephrotoxic agents
--- NOTE | 2024-08-16 11:51 | P.PN ---
Subjective Progress Note Date: 08/16/24 Principal diagnosis: Acute on chronic hypoxic respiratory failure, multifactorial Patient is a 64-year-old male with past medical history significant for atrial fibrillation, diabetes mellitus, CKD stage III, hypertension, hyperlipidemia, tobacco smoker. Of note, recently had a prolonged hospitalization 07/19/2024 through 07/31/2024. Treated for combination of influenza A, pneumonia, CHF. Completed course of antibiotics and Tamiflu. At this time, did require noninvasive BiPAP, eventually discharged on home O2. Returns with a chief complaint of shortness of breath progressing over the last 2 to 3 days. Also, reports sudden onset substernal chest pain that developed the night prior and has been persistent. On arrival to the ED, found to be in some respiratory distress, and placed on BiPAP. Workup in the emergency department including a chest x-ray showing multifocal infiltrates concerning for pneumonia or pulmonary edema. D-dimer was elevated in setting CT angio protocol which was positive for segmental and subsegmental right middle lobe and right lower lobe pulmonary emboli. No saddle pulmonary embolus. Pulmonary artery mildly enlarged. Preserved RV to LV ratio. There were diffuse coarse reticular infiltrates, as well as, groundglass lung attenuation, cystic changes, with concerns for interstitial lung disease. Patient does take Eliquis for his history of atrial fibrillation. Does state he has missed some doses lately. CBC: WBC count 22.6, hemoglobin 11, platelets 322. CMP: Sodium 133, potassium 4.2, chloride 101, serum bicarb 24, BUN 30, creatinine 1.27, glucose 135. Lactic 1.5. VBG with a pH of 7.5 and pCO2 of 32. EKG: Sinus rhythm, rate 65 bpm, left bundle branch block, not acute. Elevated serial troponins 0.049 and 0.055 respectively. NT proBNP elevated 8807. Patient is currently being evaluated in the emergency department. He is alert and some moderate respiratory distress. On BiPAP with settings 12/5 and FiO2 60%. Tachypneic, breathing around 40 breaths/min. Endorses progressive worsening difficulty in breathing over last couple days. He has tried to increase his supplemental oxygen at home without any relief. Denies previous history of DVT or PE. Associated nonproductive cough. Denies sputum production or hemoptysis. Substernal nonradiating chest pain persist. Denies any fevers or chills. Denies heart palpitations or syncopal events. Denies swelling in the lower extremities. Heart rhythm is normal sinus on bedside monitor. Blood pressure has been normotensive, did receive 2 L of crystalloid fluid bolus earlier. Not requiring any vasopressors. Normal saline is infusing at 150 mL/h. IV heparin infusing per protocol 08/06/2024, the patient is being seen for a follow-up. The patient is alternating between BiPAP at a pressure of 12/5 with an FiO2 of 60% and 15 L of oxygen by nasal cannula. He is getting slightly anxious and the patient is being provided Xanax accordingly. Fluid balance is -1.1 L over the past 24 hours. Limited echocardiogram was also done and it showed preserved LV function with an EF of around 55 to 60%. Valvular functions could not be accurately assessed as the patient's study was technically difficult study. There was however RV dilatation. Unable to estimate RV pressures. The electrolytes from today showed a creatinine of 1.5 with a BUN of 35. Bicarb is at 21. Sodium is at 132. The patient remains on DuoNeb updrafts. The patient remains on a combination of cefepime and vancomycin. The patient was taken off the IV hep lizzette and the patient was started on anticoagulation with Eliquis. Remains on IV Solu-Medrol 60 mg every 6 hours. Remains on Aldactone. Remains on IV Lasix 40 mg every 12 hours. On today's evaluation of 08/07/2024, the patient is overall condition is essentially unchanged. Continues to be hypoxic, continues to be on BiPAP and the patient remains at a pressure of 12/5 with an FiO2 of 60%. Continues to have crackles in lung base bilaterally. White cell count remains elevated at 20 with a hemoglobin 9.2. Very much BiPAP dependent as the patient desaturates once taken off the BiPAP. BUN is 44 with a platelet of 1.5. Sodium levels at 134 and a potassium level is at 3.4. Remains on DuoNeb updrafts. Remains on IV Lasix 40 mg every 12 hours. Remains on Aldactone. Remains on bronchodilators. Remains on steroids. Empiric antibiotic coverage with IV cefepime. Reviewed the CAT scan again and there is some chronic interstitial changes and the patient has diffuse infiltrates with areas of groundglass. Consider acute interstitial pneumonias. Consider fungal pneumonias. On today's evaluation of 08/08/2024, the patient is feeling slightly better compared to yesterday. The patient is off the BiPAP and the patient is currently on 15 L of oxygen by nasal cannula. Remains on bronchodilators. Remains on IV Solu-Medrol. Remains on IV Lasix. Antibiotic coverage including combination of cefepime, Levaquin orally and itraconazole orally. Fungal antibodies are still pending. Meanwhile, rheumatologic profile showed a negative rheumatoid factor and negative MARISA. Legionella urine antigen is still pending for now. Clinically however, the patient is feeling slightly improved compared to yesterday. His chest x-ray continues to show multifocal airspace disease more so in the right lung. Fluid balance has been negative. The patient's creatinine is currently at 1.6 with a BUN of 54 and a sodium levels at 133. I am going to taper the steroids. The white cell count is 18.2 with a hemoglobin of 9.2. On 08/09/2024, the patient is transferred to the intensive care unit for closer monitoring. As mentioned, the patient developed acute hypoxic respiratory failure with diffuse bilateral pulmonary filtrates discussed earlier. The patient was able to tolerate Airvo, however, overnight, the patient developed epistaxis. Therefore was discontinued the patient was placed back on BiPAP and his current BiPAP is running at a pressure of 12 over 5 cm of water with an FiO2 of 80%. The patient seems to be quite dependent on the BiPAP. Unable to drop the FiO2 any further. Repeat chest x-ray was done and shows stable diffuse bilateral pulm infiltrates which remains essentially unchanged compared to yesterday. Clinically, the patient is awake and alert. He is reported to have some congested cough. No significant sputum production. No chest pain. No hemoptysis. Noted, over the past 48 hours, the patient was diuresed with IV Lasix. Nevertheless, we have not seen any improvement in the patient's oxygenation. The patient was negative fluid balance. His BNP today is at 68 with a creatinine of 1.7. Based on that, I stopped diuretics. Rest of the electrolytes are all within normal limits. White cell count of 21 with a hemoglobin 9.1 and a platelet count of 245. The patient remains on broad- spectrum antibiotics. The patient remains on IV cefepime, itraconazole and Levaquin. Fungal antibodies are still pending for now. MARISA and rheumatoid factor were both negative. Legionella urine antigen was also negative. The patient remains on anticoagulation and I am going to drop the Eliquis dose to 5 mg p.o. twice a day. I am not absolutely convinced that the patient has a pulmonary embolism. I reviewed the CAT scan of the chest and there could be potentially some subsegmental filling defects in the right, however, the overall contrast administration was essentially poor. The patient will be monitored very closely in the intensive care unit. On a separate note, the patient was started on insulin drip for blood sugar control. Patient was seen today on 08/10/2024, remains in the ICU, remains on fluid restrictions for low sodium of 128, he is on BiPAP 12/60%, patient is presenting this time very much similar to his last presentation few weeks ago. I am familiar with this patient, and on his last admission patient responded to treatment with mostly diuretics, and steroids. This time came back with a similar presentation, he is receiving diuretics, but has been on hold for the last 24 hours, and I recommended we go back on Lasix 40 mg IV push every 12 hours, patient is receiving Solu-Medrol at 60 mg IV push every 8 hours, he is also on Levaquin's, cefepime, and he is marginal at best. In addition to this the patient had non-ST elevation myocardial infarction and flu/influenza A back on 08/04. Blood cultures have been negative, patient has leukocytosis with WBC count of 21.7 hemoglobin is 7.9. Creatinine has been slightly rising 1.51 on admission which is about his baseline, today his creatinine is 1.97 with a BUN of 95. Legionella antigen has been negative MARISA screen has been negative rheumatoid factor is negative patient continues to complain of shortness of breath, intermittent cough, and wheezing. Patient was seen today on 08/11/2024, remains in the ICU, remains on BiPAP, patient is down on FiO2 to 50%, so he is on BiPAP 12//50%. Clinically the patient is feeling better breathing easier, remains on empiric antibiotics including cefepime and Levaquin remains on Lasix 40 mg every 12 hours remains on steroids, and today I have noticed probably minimal improvement in his chest x- ray findings. Hence we will continue the same and will make Lasix 40 mg twice daily instead of 40 mg daily. WBC count is 22.8 hemoglobin 7.4 electrolytes are normal BUN is 117 creatinine 2.11 Patient was seen today on 08/12/2024, patient is feeling better today, remains on BiPAP, however he is down to 40%, chest x-ray is showing definite improvement in comparison to previous x-rays of the chest. Patient remains on diuretics r emains on antibiotics and remains on steroids, hence I have no plans to cut down on his diuretics at this point specially with his improvement clinically and improvement noted on the chest x-ray. As a matter fact I was able to discontinue BiPAP, and I placed the patient on a high flow nasal cannula 10 L and he is saturating anywhere between 97 to 99%. Creatinine is noted to be a bit higher today 2.28, his BUN is 125, his WBC count remains elevated at 18.1, hemoglobin is 7. Patient remains quite edematous, and he remains on diuretics in the form of Lasix and Aldactone. Patient was seen today on 08/13/2024, basically about the same, hemoglobin is low and the patient will receive 1 unit of packed RBCs today. Last night he had to go back on BiPAP, although he was tried on high flow nasal cannula throughout the day yesterday, Desaturating and kept getting anxious and agitated, then he w as placed on BiPAP overnight, and he remains on BiPAP 12/5/50%. Hemoglobin today is 6.2, had some recommending at least a unit of packed RBCs. Chest x-ray continues to show bilateral interstitial edema/infiltrates. Patient remains on cefepime, IV fluids at KVO, remains on diuretics. Renal functioning is holding and not showing any significant change. Seen today on 08/14/2024, patient was on BiPAP at night, however earlier this morning he was placed down to 8 L high flow nasal cannula. Saturating at 93 to 95%. He was on BiPAP 12/5/50% last time. Remains on Lasix 40 mg IV push twice daily remains on Solu-Medrol 60 every 6 remains on cefepime. Patient has been on Sporanox. Some improvement today compared to the last few days, no chest x- ray was done, but the patient seems to be more comfortable on high flow nasal cannula compared to BiPAP. Continues to have leukocytosis but improving with WBC of 16.5 electrolytes are normal bicarb is normal BUN is 123 creatinine 2.33 blood sugar is 305. Patient was seen today on 08/15/2024, remains in the ICU, presently on 15 L high flow nasal cannula, he was on BiPAP 12/5/50% last night. Patient is also on insulin drip 7 units/h for elevated blood sugar, cefepime Lasix 40 mg twice daily and today I cut down his Solu-Medrol to 40 mg IV push every 12 hours. Chest x-ray continues to show edema/infiltrates at the base of his lungs, howeve r overall his chest x-ray is much better now compared to his initial chest x-ray on admission. Clinical improvement but not quite ready to be transferred out of the ICU today, patient remains marginal in spite of the improvement noted. And he has very complex multiple medical issues being addressed. WBC count today is a bit higher at 19.9 hemoglobin is holding at 7.2 electrolytes are normal BUN is 118 creatinine 2.37 slightly higher. Patient remains in negative fluid balance. Patient was seen today on 08/16/2024, remains in the ICU, on 15 L high flow nasal cannula on insulin at 5 units/h remains on cefepime Lasix Sporanox and Solu- Medrol patient is feeling better today compared to baseline. He seems to be less edematous, less shortness of breath, chest x-ray continues show bilateral i nterstitial infiltrates/edema. His renal functioning is holding about the same, hence I have made no changes in his diuresis regimen today. And I have kept him on the same medications, patient is improving but very slowly. WBC count today is 20.6 hemoglobin 7.3 electrolytes are normal BUN is 118 creatinine 2.22 Objective - Vital Signs Vital signs: Vital Signs Temp 96.9 F L 08/16/24 08:00 Pulse 70 08/16/24 11:28 Resp 23 08/16/24 11:00 BP 143/111 08/16/24 11:00 Pulse Ox 93 L 08/16/24 11:00 FiO2 50 08/15/24 04:40 Intake & Output 08/15/24 08/16/24 08/16/24 18:59 06:59 18:59 Intake Total 6573.634 7575.741 548.083 Output Total 1425 1750 475 Balance 65.376 -706.259 73.083 Weight 101.9 kg Intake: IV 120 80 40 .9 120 80 40 Intake, IV Titration 160.376 153.741 18.083 Amount Cefepime 2 gm In Sodium 100 100 Chloride 0.9% 100 ml @ 25 mls/hr IVPB Q12H [facility] Rx# :[id number] Insulin Regular 100 unit 60.376 53.741 18.083 In Sodium Chloride 0.9% 100 ml @ Titrate IV .Q0M [facility] Rx#:[id number] Oral 1210 810 490 Output: Urine 1425 1750 475 Other: Voiding Method External Catheter External Catheter - Exam GENERAL EXAM: 64-year-old white male obese , 15 L high flow nasal cannula HEAD: Normocephalic and atraumatic EYES: Normal reaction of pupils, equal size. NOSE: Normal nasal mucosa no further epistaxis THROAT: No erythema or exudates. NECK: No masses, no JVD. CHEST: No chest wall deformity. Lungs: Bibasilar crackles crackles at the bases persist. CVS: S1 and S2 normal with soft systolic murmur, regular rhythm. No other extra heart sounds ABDOMEN: No hepatosplenomegaly, active bowel sounds, no guarding or rigidity. SKIN: No rashes CENTRAL NERVOUS SYSTEM: Alert oriented x 3 no gross focal deficit EXTREMITIES: No clubbing, no edema, no cyanosis - Labs CBC & Chem 7: 08/16/24 05:48 08/16/24 05:48 Labs: Abnormal Lab Results - Last 24 Hours (Table) 08/15/24 08/15/24 08/15/24 Range/Units 11:46 13:09 14:53 WBC (3.8-10.6) k/uL RBC (4.30-5.90) m/uL Hgb (13.0-17.5) gm/dL Hct (39.0-53.0) % Sodium (137-145) mmol/L BUN (9-20) mg/dL Creatinine (0.66-1.25) mg/dL Glucose (74-99) mg/dL POC Glucose (mg/dL) 173 H 148 H 122 H (70-110) mg/dL Magnesium (1.6-2.3) mg/dL 08/15/24 08/15/24 08/15/24 Range/Units 16:55 18:02 19:02 WBC (3.8-10.6) k/uL RBC (4.30-5.90) m/uL Hgb (13.0-17.5) gm/dL Hct (39.0-53.0) % Sodium (137-145) mmol/L BUN (9-20) mg/dL Creatinine (0.66-1.25) mg/dL Glucose (74-99) mg/dL POC Glucose (mg/dL) 213 H 264 H 275 H (70-110) mg/dL Magnesium (1.6-2.3) mg/dL 08/15/24 08/15/24 08/15/24 Range/Units 20:03 21:07 22:13 WBC (3.8-10.6) k/uL RBC (4.30-5.90) m/uL Hgb (13.0-17.5) gm/dL Hct (39.0-53.0) % Sodium (137-145) mmol/L BUN (9-20) mg/dL Creatinine (0.66-1.25) mg/dL Glucose (74-99) mg/dL POC Glucose (mg/dL) 290 H 268 H 220 H (70-110) mg/dL Magnesium (1.6-2.3) mg/dL 08/15/24 08/16/24 08/16/24 Range/Units 23:11 00:07 01:57 WBC (3.8-10.6) k/uL RBC (4.30-5.90) m/uL Hgb (13.0-17.5) gm/dL Hct (39.0-53.0) % Sodium (137-145) mmol/L BUN (9-20) mg/dL Creatinine (0.66-1.25) mg/dL Glucose (74-99) mg/dL POC Glucose (mg/dL) 176 H 145 H 135 H (70-110) mg/dL Magnesium (1.6-2.3) mg/dL 08/16/24 08/16/24 08/16/24 Range/Units 02:58 04:03 05:08 WBC (3.8-10.6) k/uL RBC (4.30-5.90) m/uL Hgb (13.0-17.5) gm/dL Hct (39.0-53.0) % Sodium (137-145) mmol/L BUN (9-20) mg/dL Creatinine (0.66-1.25) mg/dL Glucose (74-99) mg/dL POC Glucose (mg/dL) 187 H 211 H 216 H (70-110) mg/dL Magnesium (1.6-2.3) mg/dL 08/16/24 08/16/24 08/16/24 Range/Units 05:48 05:48 06:08 WBC 20.6 H (3.8-10.6) k/uL RBC 2.38 L (4.30-5.90) m/uL Hgb 7.3 L (13.0-17.5) gm/dL Hct 22.0 L (39.0-53.0) % Sodium 133 L (137-145) mmol/L BUN 118 H* (9-20) mg/dL Creatinine 2.22 H (0.66-1.25) mg/dL Glucose 179 H (74-99) mg/dL POC Glucose (mg/dL) 222 H (70-110) mg/dL Magnesium 2.9 H (1.6-2.3) mg/dL 08/16/24 08/16/24 Range/Units 07:02 09:46 WBC (3.8-10.6) k/uL RBC (4.30-5.90) m/uL Hgb (13.0-17.5) gm/dL Hct (39.0-53.0) % Sodium (137-145) mmol/L BUN (9-20) mg/dL Creatinine (0.66-1.25) mg/dL Glucose (74-99) mg/dL POC Glucose (mg/dL) 202 H 258 H (70-110) mg/dL Magnesium (1.6-2.3) mg/dL Assessment and Plan Assessment: Impression: Acute on chronic hypoxic respiratory failure, multifactorial, I suspect this is mostly a picture of pulmonary edema, underlying pneumonia is not entirely ruled out. Hence the patient will remain on antibiotics and diuretics. Acute exacerbation of chronic systolic congestive heart failure, recent e chocardiogram from 07/20/2024 estimating a left ventricular ejection fraction of 45 to 50%, moderate pulmonary hypertension, and moderate tricuspid regurgitation. Repeat echocardiogram showed improvement in LV function with ejection fraction 55% Acute leukocytosis Acute on chronic kidney disease Recent influenza A infection History of atrial fibrillation with previous cardioversion History of underlying COPD and chronic tobacco dependence Benign essential hypertension Type 2 diabetes Acute on chronic anemia patient will require a unit of packed RBCs to be transfused today. And will continue to monitor for any blood loss specially GI blood losses. Recommendation: Continue to monitor in the ICU Continue high flow nasal cannula, titrate FiO2 accordingly Continue Lasix, no change in dose. Continue bronchodilators Continue Solu-Medrol at 40 mg IV push every 12 hours Continue empiric antibiotics and antifungal patient is on cefepime, and itraconazole Remains marginal at best Remains quite ill, prognosis remains guarded. Will continue to follow C Time with Patient: Less than 30
[2024-08-16 11:52] LABS: Glucose,Whole Blood 250 mg/dL (70-110)
[2024-08-16 14:05] LABS: Glucose,Whole Blood 316 mg/dL (70-110)
--- NOTE | 2024-08-16 14:42 | P.PN ---
Subjective Progress Note Date: 08/15/24 Principal diagnosis: Reason for follow-up is pneumonia Patient is a 64-year-old male with a past medical history significant for diabetes mellitus hypertension hyperlipidemia pneumonia atrial fibrillation currently everyday smoker presenting to the hospital for evaluation of increasing shortness of breath patient has been diagnosed with multifocal pneumonia prompting this consultation. On today's evaluation that is 08/15/2024, patient did not have any fever and den ies any chills, patient is breathing slightly comfortably however was requiring continued hyponasal cannula oxygen no chest pain or worsening cough no abdominal pain or diarrhea. Patient white count is 19.8, creatinine is 2.37. Chest x-ray continue CHF exacerbation no significant change from 1 day earlier Objective - Vital Signs Vital signs: Vital Signs Temp 96.8 F L 08/15/24 12:00 Pulse 63 08/15/24 14:00 Resp 21 08/15/24 14:00 BP 100/62 08/15/24 14:00 Pulse Ox 96 08/15/24 14:00 FiO2 50 08/15/24 04:40 Intake & Output 08/14/24 08/15/24 08/15/24 18:59 06:59 18:59 Intake Total 2778.514 429.434 7342 Output Total 1500 1325 1025 Balance 1278.514 -409.811 125 Weight 100.3 kg Intake: IV 135 120 80 .9 135 120 80 Intake, IV Titration 213.514 55.189 100 Amount Cefepime 2 gm In Sodium 100 100 Chloride 0.9% 100 ml @ 25 mls/hr IVPB Q12H [facility] Rx# :[id number] Insulin Regular 100 unit 113.514 55.189 In Sodium Chloride 0.9% 100 ml @ Titrate IV .Q0M [facility] Rx#:[id number] Oral 2430 740 970 Output: Urine 1500 1325 1025 Other: Voiding Method External Catheter External Catheter External Catheter - Exam GENERAL DESCRIPTION: An elderly male lying in bed in no distress RESPIRATORY SYSTEM: Unlabored breathing , coarse breath sounds bilaterally HEART: S1 S2 regular rate and rhythm , ABDOMEN: Soft , no tenderness EXTREMITIES: 2+ edema feet - Labs CBC & Chem 7: 08/16/24 05:48 08/16/24 05:48 Labs: Abnormal Lab Results - Last 24 Hours (Table) 08/14/24 08/14/24 08/14/24 Range/Units 15:09 20:07 21:54 WBC (3.8-10.6) k/uL RBC (4.30-5.90) m/uL Hgb (13.0-17.5) gm/dL Hct (39.0-53.0) % Sodium (137-145) mmol/L BUN (9-20) mg/dL Creatinine (0.66-1.25) mg/dL POC Glucose (mg/dL) 250 H 179 H 317 H (70-110) mg/dL Magnesium (1.6-2.3) mg/dL 08/14/24 08/15/24 08/15/24 Range/Units 23:16 00:17 01:12 WBC (3.8-10.6) k/uL RBC (4.30-5.90) m/uL Hgb (13.0-17.5) gm/dL Hct (39.0-53.0) % Sodium (137-145) mmol/L BUN (9-20) mg/dL Creatinine (0.66-1.25) mg/dL POC Glucose (mg/dL) 327 H 291 H 251 H (70-110) mg/dL Magnesium (1.6-2.3) mg/dL 08/15/24 08/15/24 08/15/24 Range/Units 02:12 03:12 03:54 WBC 19.9 H (3.8-10.6) k/uL RBC 2.35 L (4.30-5.90) m/uL Hgb 7.2 L (13.0-17.5) gm/dL Hct 21.7 L (39.0-53.0) % Sodium (137-145) mmol/L BUN (9-20) mg/dL Creatinine (0.66-1.25) mg/dL POC Glucose (mg/dL) 195 H 134 H (70-110) mg/dL Magnesium (1.6-2.3) mg/dL 08/15/24 08/15/24 08/15/24 Range/Units 03:54 04:59 05:56 WBC (3.8-10.6) k/uL RBC (4.30-5.90) m/uL Hgb (13.0-17.5) gm/dL Hct (39.0-53.0) % Sodium 135 L (137-145) mmol/L BUN 118 H* (9-20) mg/dL Creatinine 2.37 H (0.66-1.25) mg/dL POC Glucose (mg/dL) 117 H 187 H (70-110) mg/dL Magnesium 3.0 H (1.6-2.3) mg/dL 08/15/24 08/15/24 08/15/24 Range/Units 06:58 08:20 09:06 WBC (3.8-10.6) k/uL RBC (4.30-5.90) m/uL Hgb (13.0-17.5) gm/dL Hct (39.0-53.0) % Sodium (137-145) mmol/L BUN (9-20) mg/dL Creatinine (0.66-1.25) mg/dL POC Glucose (mg/dL) 165 H 173 H 183 H (70-110) mg/dL Magnesium (1.6-2.3) mg/dL 08/15/24 08/15/24 08/15/24 Range/Units 10:02 11:01 11:46 WBC (3.8-10.6) k/uL RBC (4.30-5.90) m/uL Hgb (13.0-17.5) gm/dL Hct (39.0-53.0) % Sodium (137-145) mmol/L BUN (9-20) mg/dL Creatinine (0.66-1.25) mg/dL POC Glucose (mg/dL) 177 H 195 H 173 H (70-110) mg/dL Magnesium (1.6-2.3) mg/dL 08/15/24 Range/Units 13:09 WBC (3.8-10.6) k/uL RBC (4.30-5.90) m/uL Hgb (13.0-17.5) gm/dL Hct (39.0-53.0) % Sodium (137-145) mmol/L BUN (9-20) mg/dL Creatinine (0.66-1.25) mg/dL POC Glucose (mg/dL) 148 H (70-110) mg/dL Magnesium (1.6-2.3) mg/dL Assessment and Plan (1) Leukocytosis Current Visit: Yes Status: Acute Code(s): D72.829 - ELEVATED WHITE BLOOD CELL COUNT, UNSPECIFIED SNOMED Code(s): 060545251 (2) Bilateral pneumonia Current Visit: Yes Status: Acute Code(s): J18.9 - PNEUMONIA, UNSPECIFIED ORGANISM SNOMED Code(s): 172586776 Plan: 1patient presented hospital with increasing shortness of breath and chest pain which is likely multifactorial in this patient who did have evidence of PE on the CT there is also evidence of multifocal pneumonia with elevated white count and recently acute influenza A will need to cover for resistant gram-positive as well as gram-negative pathogen for post influenza pneumonia 2-blood culture has been negative no sputum has been collected 3-patient respiratory status remains to be borderline currently on diuretics and combination cefepime and itraconazole Dictation was produced using [employer] dictation software. please excuse any grammatical, word or spelling errors. Time with Patient: Less than 30
--- NOTE | 2024-08-16 14:43 | P.PN ---
Subjective Progress Note Date: 08/16/24 Principal diagnosis: Reason for follow-up is pneumonia Patient is a 64-year-old male with a past medical history significant for diabetes mellitus hypertension hyperlipidemia pneumonia atrial fibrillation currently everyday smoker presenting to the hospital for evaluation of increasing shortness of breath patient has been diagnosed with multifocal pneumonia prompting this consultation. On today's evaluation that is 08/16/2024 patient continues to be afebrile still r equiring high flow 15 L nasal oxygen but denies any worsening shortness of breath or chest pain no worsening cough no abdominal pain or diarrhea. Patient did have a white count of 20.6, creatinine is 2.22 chest x-ray cardiomegaly bilateral acute infiltrate or edema redemonstrated, he is to serology came back negative Objective - Vital Signs Vital signs: Vital Signs Temp 96.9 F L 08/16/24 08:00 Pulse 70 08/16/24 11:28 Resp 23 08/16/24 11:00 BP 143/111 08/16/24 11:00 Pulse Ox 93 L 08/16/24 11:00 FiO2 50 08/15/24 04:40 Intake & Output 08/15/24 08/16/24 08/16/24 18:59 06:59 18:59 Intake Total 9481.762 9483.741 915.117 Output Total 1425 1750 1125 Balance 65.376 -706.259 -209.883 Weight 101.9 kg Intake: IV 120 80 50 .9 120 80 50 Intake, IV Titration 160.376 153.741 135.117 Amount Cefepime 2 gm In Sodium 100 100 100 Chloride 0.9% 100 ml @ 25 mls/hr IVPB Q12H [facility] Rx# :[id number] Insulin Regular 100 unit 60.376 53.741 35.117 In Sodium Chloride 0.9% 100 ml @ Titrate IV .Q0M [facility] Rx#:[id number] Oral 1210 810 730 Output: Urine 1425 1750 1125 Other: Voiding Method External Catheter External Catheter - Exam GENERAL DESCRIPTION: An elderly male lying in bed in no distress RESPIRATORY SYSTEM: Unlabored breathing , coarse breath sounds bilaterally HEART: S1 S2 regular rate and rhythm , ABDOMEN: Soft , no tenderness EXTREMITIES: 2+ edema feet - Labs CBC & Chem 7: 08/16/24 05:48 03/23/25 05:48 Labs: Abnormal Lab Results - Last 24 Hours (Table) 08/15/24 08/15/24 08/15/24 Range/Units 14:53 16:55 18:02 WBC (3.8-10.6) k/uL RBC (4.30-5.90) m/uL Hgb (13.0-17.5) gm/dL Hct (39.0-53.0) % Sodium (137-145) mmol/L BUN (9-20) mg/dL Creatinine (0.66-1.25) mg/dL Glucose (74-99) mg/dL POC Glucose (mg/dL) 122 H 213 H 264 H (70-110) mg/dL Magnesium (1.6-2.3) mg/dL 08/15/24 08/15/24 08/15/24 Range/Units 19:02 20:03 21:07 WBC (3.8-10.6) k/uL RBC (4.30-5.90) m/uL Hgb (13.0-17.5) gm/dL Hct (39.0-53.0) % Sodium (137-145) mmol/L BUN (9-20) mg/dL Creatinine (0.66-1.25) mg/dL Glucose (74-99) mg/dL POC Glucose (mg/dL) 275 H 290 H 268 H (70-110) mg/dL Magnesium (1.6-2.3) mg/dL 08/15/24 08/15/24 08/16/24 Range/Units 22:13 23:11 00:07 WBC (3.8-10.6) k/uL RBC (4.30-5.90) m/uL Hgb (13.0-17.5) gm/dL Hct (39.0-53.0) % Sodium (137-145) mmol/L BUN (9-20) mg/dL Creatinine (0.66-1.25) mg/dL Glucose (74-99) mg/dL POC Glucose (mg/dL) 220 H 176 H 145 H (70-110) mg/dL Magnesium (1.6-2.3) mg/dL 08/16/24 08/16/24 08/16/24 Range/Units 01:57 02:58 04:03 WBC (3.8-10.6) k/uL RBC (4.30-5.90) m/uL Hgb (13.0-17.5) gm/dL Hct (39.0-53.0) % Sodium (137-145) mmol/L BUN (9-20) mg/dL Creatinine (0.66-1.25) mg/dL Glucose (74-99) mg/dL POC Glucose (mg/dL) 135 H 187 H 211 H (70-110) mg/dL Magnesium (1.6-2.3) mg/dL 08/16/24 08/16/24 08/16/24 Range/Units 05:08 05:48 05:48 WBC 20.6 H (3.8-10.6) k/uL RBC 2.38 L (4.30-5.90) m/uL Hgb 7.3 L (13.0-17.5) gm/dL Hct 22.0 L (39.0-53.0) % Sodium 133 L (137-145) mmol/L BUN 118 H* (9-20) mg/dL Creatinine 2.22 H (0.66-1.25) mg/dL Glucose 179 H (74-99) mg/dL POC Glucose (mg/dL) 216 H (70-110) mg/dL Magnesium 2.9 H (1.6-2.3) mg/dL 08/16/24 08/16/24 08/16/24 Range/Units 06:08 07:02 09:46 WBC (3.8-10.6) k/uL RBC (4.30-5.90) m/uL Hgb (13.0-17.5) gm/dL Hct (39.0-53.0) % Sodium (137-145) mmol/L BUN (9-20) mg/dL Creatinine (0.66-1.25) mg/dL Glucose (74-99) mg/dL POC Glucose (mg/dL) 222 H 202 H 258 H (70-110) mg/dL Magnesium (1.6-2.3) mg/dL 08/16/24 08/16/24 Range/Units 11:51 14:03 WBC (3.8-10.6) k/uL RBC (4.30-5.90) m/uL Hgb (13.0-17.5) gm/dL Hct (39.0-53.0) % Sodium (137-145) mmol/L BUN (9-20) mg/dL Creatinine (0.66-1.25) mg/dL Glucose (74-99) mg/dL POC Glucose (mg/dL) 250 H 316 H (70-110) mg/dL Magnesium (1.6-2.3) mg/dL Assessment and Plan (1) Leukocytosis Current Visit: Yes Status: Acute Code(s): D72.829 - ELEVATED WHITE BLOOD CELL COUNT, UNSPECIFIED SNOMED Code(s): 541992318 (2) Bilateral pneumonia Current Visit: Yes Status: Acute Code(s): J18.9 - PNEUMONIA, UNSPECIFIED ORGANISM SNOMED Code(s): 861216477 Plan: 1patient presented hospital with increasing shortness of breath and chest pain which is likely multifactorial in this patient who did have evidence of PE on the CT there is also evidence of multifocal pneumonia with elevated white count and recently acute influenza A will need to cover for resistant gram-positive as well as gram-negative pathogen for post influenza pneumonia 2-blood culture has been negative no sputum has been collected, histo serology came back negative 3-patient has received adequate cefepime keeping in mind his history serology negative recommend discontinuation of the itraconazole Dictation was produced using triptap dictation software. please excuse any grammatical, word or spelling errors. Time with Patient: Less than 30
[2024-08-16 15:58] LABS: Glucose,Whole Blood 278 mg/dL (70-110)
[2024-08-16 17:06] LABS: Glucose,Whole Blood 207 mg/dL (70-110)
[2024-08-16 18:00] LABS: Glucose,Whole Blood 175 mg/dL (70-110)
[2024-08-16 19:00] LABS: Glucose,Whole Blood 175 mg/dL (70-110)
[2024-08-16 20:55] LABS: Glucose,Whole Blood 151 mg/dL (70-110)
[2024-08-16 22:31] LABS: Glucose,Whole Blood 145 mg/dL (70-110)
[2024-08-17 00:02] LABS: Glucose,Whole Blood 117 mg/dL (70-110)
[2024-08-17 01:17] LABS: Glucose,Whole Blood 154 mg/dL (70-110)
[2024-08-17 02:45] LABS: Glucose,Whole Blood 225 mg/dL (70-110)
[2024-08-17 04:40] LABS: Glucose,Whole Blood 227 mg/dL (70-110)
[2024-08-17 06:16] LABS: Glucose,Whole Blood 238 mg/dL (70-110)
--- NOTE | 2024-08-17 06:20 | XR ---
EXAMINATION TYPE: XR chest 1V DATE OF EXAM: 08/17/2024 CLINICAL INDICATION: Male, 64 years old with history of pneumonia, progress study. TECHNIQUE: Single AP portable upright view of the chest is obtained. COMPARISON: Chest x-ray from one day earlier and older studies. FINDINGS: Persistent mild cardiomegaly with right greater than left bilateral increased lower lung o pacities. Osseous structures are intact. IMPRESSION: Mild cardiomegaly with right greater than left bilateral lower lung acute infiltrates and /or edema redemonstrated. Some improved aeration in the left lower lung noted from one day earlier. [facility], , 08/17/2024 6:18 AM
[2024-08-17 06:47] LABS: Basophils % (A) 0 %; Eosinophils % (A) 0 %; HCT 21.9 % (39.0-53.0); HGB 7.5 gm/dL (13.0-17.5); Lymphocytes # (A) 0.2 k/uL (1.0-4.8); Lymphocytes % (A) 1 %; MCHC 34.1 g/dL (31.0-37.0); MCV 90.9 fL (80.0-100.0); Mean Platelet Volume 11.2; Monocytes # (A) 0.6 k/uL (0-1.0); Monocytes % (A) 3 %; Neutrophils # (A) 20.3 k/uL (1.3-7.7); Neutrophils % (A) 96 %; Platelet Count 185 k/uL (150-450); RBC 2.41 m/uL (4.30-5.90); RDW 13.6 % (11.5-15.5); WBC 21.2 k/uL (3.8-10.6)
[2024-08-17 06:48] LABS: African American GFR (CKD) 42 (>60 ml/min/1.73 sqM); Anion Gap 10 mmol/L; Calcium 8.9 mg/dL (8.4-10.2); Carbon Dioxide 18 mmol/L (22-30); Chloride 106 mmol/L (98-107); Glucose 180 mg/dL (74-99); Non-African American GFR(CKD) 36 (>60 ml/min/1.73 sqM); Sodium 134 mmol/L (137-145)
[2024-08-17 07:08] LABS: Glucose,Whole Blood 206 mg/dL (70-110)
[2024-08-17 07:41] LABS: Potassium 4.8 mmol/L (3.5-5.1)
[2024-08-17 08:01] LABS: Blood Urea Nitrogen 132 mg/dL (9-20)
[2024-08-17 08:39] LABS: Glucose,Whole Blood 172 mg/dL (70-110)
--- NOTE | 2024-08-17 09:38 | P.PN ---
Subjective Patient is a 64-year-old male with a PMH of atrial fibrillation on Eliquis, COPD on 2 L home oxygen, [id number] diabetes mellitus, hyperlipidemia, hypertension presenting with shortness of breath. Patient was previously admitted here for acute hypoxic respiratory failure secondary to influenza pneumonia and was discharged on 2 L of home oxygen. Patient states he has been feeling short of breath while at rest. He reports that since being discharged the home oxygen has not been sufficient. He states that he had to keep increasing his oxygen. Patient says shortness of breath is slightly relieved when he is laying down. Denies any orthopnea or PND. Patient endorses a nonproductive cough that is chronic in nature, but says it has been getting worse. Patient admits to having fever, chills. Patient also admits to having non-radiating, pressure-like chest pain over the last few days. Chest pain is not related to exertion and he had no alleviating or aggravating factors. Patient denies any headache, vision changes, nausea, vomiting, diarrhea, abdominal pain, urinary symptoms. EKG independently interpreted displaying sinus rhythm with left bundle branch block that has been seen on prior EKG, rate 65 bpm, QTc 451 ms CXR independently interpreted displaying bilateral multifocal airspace opacities Chest CTA displaying acute segmental and subsegmental pulmonary emboli within the right and middle lower lobes, no saddle embolus, no RV strain, chronic interstitial loading disease Venous Doppler B/L LE displaying no evidence of acute DVT Troponin 0.049, 0.055, proBNP 8810, D-dimer 4.87, WBC 22.6, Hgb 11.0, HCT 35.2, MCV 93.7, platelet 322, PT 11.8, INR 1.1, APTT 28, sodium 133, potassium 4.2, CO2 24, BUN 30, creatinine 1.27, glucose 135 VBG pH 7.52, pCO2 32 T98.2 F, MO 80, RR 26, BP 163/77, O2 sat 90% on BiPAP with FiO2 of 100% August 05: Overflow the ER. Up in the bed. Short of breath. Patient was on BiP AP overnight. This morning on 15 L high flow nasal cannula. Decreased appetite. Has got a cough. Some wheezing. Some sputum production. Decreased appetite. Patient is on IV heparin. Also on IV cefepime. Pulmonary following August 06: Patient did confirm that because Eliquis is very expensive patient was not taking it properly did and take it sparingly at home. Explains patient's PE. Started on Eliquis today by cardiology. IV heparin discontinued. Getting easily short of breath. Requiring BiPAP.. Some cough. Oral intake fair. On IV cefepime and vancomycin. ID following. Also on IV Lasix. Due to worsening renal function will DC vancomycin August 07: Saw this afternoon. On BiPAP. 60%. Ensure ordered. All blood work ordered by pulmonary including fungal. Patient currently on IV cefepime and Levaquin. IV Solu-Medrol. Remain short of breath. Tired. Being followed by pulmonary and ID. Chest x-ray film personally reviewed by me-showing pulm edema bilateral infiltrates especially at the bases. Renal ultrasound nonspecific. UA showing protein 1+. August 08: Remain short of breath. Sitting up in bed. Not able to come off the BiPAP. Remains on IV cefepime. Accu-Cheks running high. Put on insulin drip. On IV Solu-Medrol. Oral intake fair. August 09: Patient remains short of breath. Unable to get off BiPAP. FiO2 increased to 70%. 04/30. Per Dr. Goode: Patient be moved to the ICU. Poor oral intake. Remains on insulin drip. IV Solu-Medrol. Eliquis. IV cefepime and Levaquin. Tired. Sitting up in bed leaning forward short of breath. Chest x-ray film personally reviewed by me: Scattered bilateral infiltrates August 10: ICU. Remains on BiPAP. Decreased oral intake. Sitting up. Short of breath. On IV cefepime. Insulin drip. IV Solu-Medrol. DuoNeb Q4. Rather tired. Also yesterday evening at epistaxis. Nasal packing. August 11: ICU. Mostly been on BiPAP. High flow nasal cannula. Decreased oral intake. Sitting up leaning forward. Remains on IV cefepime or Levaquin insulin drip. A bit tired. Patient has very poor oral intake. Per blast furnace keeper helper patient will IV Lasix. Note worsening renal function-cut back to Lasix once a day. Given blood pressure running lower side. DC Aldactone and DC amlodipine. August 12: ICU. Patient was taken off BiPAP this morning. Decreased to high flow nasal cannula 10 L. at the bedside. Encourage oral intake. Chopped diet. Per blast furnace keeper helper nephrology patient to continue on IV Lasix. Blood pressure better after stopping amlodipine and Aldactone yesterday. Encourage oral intake. Incentive spirometry. IV cefepime, Levaquin, I terconazole per ID. August 13: ICU. Yesterday patient was nasal cannula. Overnight repeat put back on BiPAP. Patient did drop his hemoglobin further. Down to 6.2. Bailey to be from epistaxis. Given a unit of blood. Further increase in BUN/creatinine. Remains on IV Lasix. Ordered Kerlix to both the lower extremities. Had a good portion of his lunch today. August 14: ICU. Patient seen this morning. 15 L nasal cannula. Reclining in bed. Short of breath. Garrett wrap lower extremity. Patient remains on IV cefepime, IV Lasix 40 mg every 12, insulin drip, IV Solu-Medrol DuoNeb Q4. Did not eat breakfast but had about 100% of his lunch. 08/15/2024, resume the care of the patient today. Patient seen and examined in the ICU. His not tolerating his BiPAP mask more than 1 hour, currently his mildly/moderately tachypneic on 15 L oxygen via nonrebreather. He has apparent swelling of both arms and legs, sitting up in chair feels tired denies chest pain. Patient also on insulin drip at 7 units/h. 08/16 Patient looks similar to yesterday although reports some improvement in his breathing. He used the BiPAP last night which might contributed to his feeling of improvement. He still on IV Lasix 40 mg lowered the dose to twice daily and IV Solu-Medrol 40 mg lowered the dose to 40 mg twice daily. He has more than 1.5 L out since yesterday. He is still on fluid restriction and feels thirsty. His WBC is 20,000 compared to 19.9 yesterday while he is on steroids. Hemoglobin stable at 7.3, creatinine stable at 2.2. Also remains on IV cefepime and itraconazole for possible pneumonia 07/20 Patient improving slowly and gradually Still sitting in chair with mild tachypnea and fluid overload He remains on IV Lasix 40 mg twice daily and IV Solu-Medrol 40 mg twice daily Also he is on IV cefepime and itraconazole WBC is 21,000 today, hemoglobin up to 7.5 and creatinine trended down to 1.8. Objective - Vital Signs Vital signs: Vital Signs Temp 98.2 F 08/17/24 08:00 Pulse 73 08/17/24 09:00 Resp 22 08/17/24 09:00 BP 144/62 08/17/24 09:00 Pulse Ox 92 L 08/17/24 09:00 FiO2 15 08/16/24 18:00 Intake & Output 08/16/24 08/17/24 08/17/24 18:59 06:59 18:59 Intake Total 1494.467 169.563 236.087 Output Total 1675 2100 450 Balance -180.533 -1930.437 -213.913 Weight 100.5 kg Intake: IV 105 120 30 .9 105 120 30 Intake, IV Titration 179.467 49.563 6.087 Amount Cefepime 2 gm In Sodium 100 Chloride 0.9% 100 ml @ 25 mls/hr IVPB Q12H [facility] Rx# :[id number] Insulin Regular 100 unit 79.467 49.563 6.087 In Sodium Chloride 0.9% 100 ml @ Titrate IV .Q0M [facility] Rx#:[id number] Oral 1210 200 Output: Urine 1675 2100 450 Other: Voiding Method External Catheter External Catheter External Catheter # Bowel Movements 0 - Exam GENERAL: The patient is alert and oriented x3, not in any acute distress. Well developed, well nourished. HEENT: Pupils are round and equally reacting to light. EOMI. No scleral icterus. No conjunctival pallor. Normocephalic, atraumatic. No pharyngeal erythema. No thyromegaly. CARDIOVASCULAR: S1 and S2 present. No murmurs, rubs, or gallops. -PULMONARY: Chest is clear to auscultation, no wheezing , n bilateral basal crackles. ABDOMEN: Soft, nontender, nondistended, normoactive bowel sounds. No palpable organomegaly. MUSCULOSKELETAL: No joint swelling or deformity. -EXTREMITIES: No cyanosis, clubbing, bilateral arm and leg pitting leg edema NEUROLOGICAL: Gross neurological examination did not reveal any focal deficits. SKIN: No rashes. no petechiae. - Labs CBC & Chem 7: 08/17/24 05:53 08/17/24 05:53 Labs: Abnormal Lab Results - Last 24 Hours (Table) 08/16/24 08/16/24 08/16/24 Range/Units 09:46 11:51 14:03 WBC (3.8-10.6) k/uL RBC (4.30-5.90) m/uL Hgb (13.0-17.5) gm/dL Hct (39.0-53.0) % Neutrophils # (1.3-7.7) k/uL Lymphocytes # (1.0-4.8) k/uL Sodium (137-145) mmol/L Carbon Dioxide (22-30) mmol/L BUN (9-20) mg/dL Creatinine (0.66-1.25) mg/dL Glucose (74-99) mg/dL POC Glucose (mg/dL) 258 H 250 H 316 H (70-110) mg/dL 08/16/24 08/16/24 08/16/24 Range/Units 15:56 17:04 17:58 WBC (3.8-10.6) k/uL RBC (4.30-5.90) m/uL Hgb (13.0-17.5) gm/dL Hct (39.0-53.0) % Neutrophils # (1.3-7.7) k/uL Lymphocytes # (1.0-4.8) k/uL Sodium (137-145) mmol/L Carbon Dioxide (22-30) mmol/L BUN (9-20) mg/dL Creatinine (0.66-1.25) mg/dL Glucose (74-99) mg/dL POC Glucose (mg/dL) 278 H 207 H 175 H (70-110) mg/dL 08/16/24 08/16/24 08/16/24 Range/Units 18:58 20:54 22:29 WBC (3.8-10.6) k/uL RBC (4.30-5.90) m/uL Hgb (13.0-17.5) gm/dL Hct (39.0-53.0) % Neutrophils # (1.3-7.7) k/uL Lymphocytes # (1.0-4.8) k/uL Sodium (137-145) mmol/L Carbon Dioxide (22-30) mmol/L BUN (9-20) mg/dL Creatinine (0.66-1.25) mg/dL Glucose (74-99) mg/dL POC Glucose (mg/dL) 175 H 151 H 145 H (70-110) mg/dL 08/17/24 08/17/24 08/17/24 Range/Units 00:01 01:15 02:44 WBC (3.8-10.6) k/uL RBC (4.30-5.90) m/uL Hgb (13.0-17.5) gm/dL Hct (39.0-53.0) % Neutrophils # (1.3-7.7) k/uL Lymphocytes # (1.0-4.8) k/uL Sodium (137-145) mmol/L Carbon Dioxide (22-30) mmol/L BUN (9-20) mg/dL Creatinine (0.66-1.25) mg/dL Glucose (74-99) mg/dL POC Glucose (mg/dL) 117 H 154 H 225 H (70-110) mg/dL 08/17/24 08/17/24 08/17/24 Range/Units 04:39 05:53 05:53 WBC 21.2 H (3.8-10.6) k/uL RBC 2.41 L (4.30-5.90) m/uL Hgb 7.5 L (13.0-17.5) gm/dL Hct 21.9 L (39.0-53.0) % Neutrophils # 20.3 H (1.3-7.7) k/uL Lymphocytes # 0.2 L (1.0-4.8) k/uL Sodium 134 L (137-145) mmol/L Carbon Dioxide 18 L (22-30) mmol/L BUN 132 H* (9-20) mg/dL Creatinine 1.89 H (0.66-1.25) mg/dL Glucose 180 H (74-99) mg/dL POC Glucose (mg/dL) 227 H (70-110) mg/dL 08/17/24 08/17/24 08/17/24 Range/Units 06:15 07:07 08:38 WBC (3.8-10.6) k/uL RBC (4.30-5.90) m/uL Hgb (13.0-17.5) gm/dL Hct (39.0-53.0) % Neutrophils # (1.3-7.7) k/uL Lymphocytes # (1.0-4.8) k/uL Sodium (137-145) mmol/L Carbon Dioxide (22-30) mmol/L BUN (9-20) mg/dL Creatinine (0.66-1.25) mg/dL Glucose (74-99) mg/dL POC Glucose (mg/dL) 238 H 206 H 172 H (70-110) mg/dL Assessment and Plan Assessment: #. Acute pulmonary embolism, non-massive [segmental and subsegmental within the right middle and lower lobes. No RV strain Initially IV heparin, currently on o Eliquis #. Sepsis likely secondary to -viral pneumonia. Secondary bacterial component IV cefepime. Levaquin discontinued on August 12..-also has been on itraconazole started on the August 07 ID and pulmonary following #. Acute hypoxic respiratory failure, secondary to above: Slow to respond Intermittently BiPAP, currently 15 L nasal cannula #. Acute COPD exacerbation, in a prior smoker: Some improvement DuoNeb Q4. IV Solu-Medrol 60 mg Q6. Nebulized Pulmicort #. Acute on chronic heart failure with reduced ejection fraction (EF 45 to 50%): Some improvement IV Lasix 40 mg every 12. Aldactone-discontinued. #. Chronic hypoxic respiratory failure from underlying COPD, 2 L home O2 -Acute kidney injury, likely ATN multifactorial, worsening Admission creatinine 1.27. #. Cmp-usakboy-bcuuwkulz type 2 diabetes, uncontrolled with hyperglycemia secondary steroids: Not improving Insulin subcu sliding scale. Stop Levemir. Continues on insulin drip Accu-Cheks ACHS - chronic kidney disease stage III from nephrosclerosis and diabetic nephropathy [creatinine 1.63 in October 2022] Renal ultrasound.: Suboptimal study. No corticomedullary comment. UA protein 1+ -Recent influenza type A #. Essential hypertension- Toprol-XL. Other antihypertensives have been held #. Hyperlipidemia Lipitor -Full code On IV Lasix., IV cefepime, Itroconazole, IV Solu-Medrol 60 mg. Had a good lunch. IV insulin
--- NOTE | 2024-08-17 09:42 | P.PN ---
Subjective Patient is seen in follow-up for acute kidney injury on chronic kidney disease. Renal function better. Nonoliguric. On high flow nasal cannula. Vital signs are stable. General: No acute distress. HEENT: Head exam is unremarkable. On high flow nasal cannula. LUNGS: Scattered rhonchi. HEART: Rate and Rhythm are regular. ABDOMEN: Nontender. EXTREMITITES: 2+ edema. Objective - Vital Signs Vital signs: Vital Signs Temp 98.2 F 08/17/24 08:00 Pulse 73 08/17/24 09:00 Resp 22 08/17/24 09:00 BP 144/62 08/17/24 09:00 Pulse Ox 92 L 08/17/24 09:00 FiO2 15 08/16/24 18:00 Intake & Output 08/16/24 08/17/24 08/17/24 18:59 06:59 18:59 Intake Total 1494.467 169.563 236.087 Output Total 1675 2100 450 Balance -180.533 -1930.437 -213.913 Weight 100.5 kg Intake: IV 105 120 30 .9 105 120 30 Intake, IV Titration 179.467 49.563 6.087 Amount Cefepime 2 gm In Sodium 100 Chloride 0.9% 100 ml @ 25 mls/hr IVPB Q12H [facility] Rx# :[id number] Insulin Regular 100 unit 79.467 49.563 6.087 In Sodium Chloride 0.9% 100 ml @ Titrate IV .Q0M [facility] Rx#:[id number] Oral 1210 200 Output: Urine 1675 2100 450 Other: Voiding Method External Catheter External Catheter External Catheter # Bowel Movements 0 - Labs CBC & Chem 7: 08/17/24 05:53 08/17/24 05:53 Labs: Abnormal Lab Results - Last 24 Hours (Table) 08/16/24 08/16/24 08/16/24 Range/Units 09:46 11:51 14:03 WBC (3.8-10.6) k/uL RBC (4.30-5.90) m/uL Hgb (13.0-17.5) gm/dL Hct (39.0-53.0) % Neutrophils # (1.3-7.7) k/uL Lymphocytes # (1.0-4.8) k/uL Sodium (137-145) mmol/L Carbon Dioxide (22-30) mmol/L BUN (9-20) mg/dL Creatinine (0.66-1.25) mg/dL Glucose (74-99) mg/dL POC Glucose (mg/dL) 258 H 250 H 316 H (70-110) mg/dL 08/16/24 08/16/24 08/16/24 Range/Units 15:56 17:04 17:58 WBC (3.8-10.6) k/uL RBC (4.30-5.90) m/uL Hgb (13.0-17.5) gm/dL Hct (39.0-53.0) % Neutrophils # (1.3-7.7) k/uL Lymphocytes # (1.0-4.8) k/uL Sodium (137-145) mmol/L Carbon Dioxide (22-30) mmol/L BUN (9-20) mg/dL Creatinine (0.66-1.25) mg/dL Glucose (74-99) mg/dL POC Glucose (mg/dL) 278 H 207 H 175 H (70-110) mg/dL 08/16/24 08/16/24 08/16/24 Range/Units 18:58 20:54 22:29 WBC (3.8-10.6) k/uL RBC (4.30-5.90) m/uL Hgb (13.0-17.5) gm/dL Hct (39.0-53.0) % Neutrophils # (1.3-7.7) k/uL Lymphocytes # (1.0-4.8) k/uL Sodium (137-145) mmol/L Carbon Dioxide (22-30) mmol/L BUN (9-20) mg/dL Creatinine (0.66-1.25) mg/dL Glucose (74-99) mg/dL POC Glucose (mg/dL) 175 H 151 H 145 H (70-110) mg/dL 08/17/24 08/17/24 08/17/24 Range/Units 00:01 01:15 02:44 WBC (3.8-10.6) k/uL RBC (4.30-5.90) m/uL Hgb (13.0-17.5) gm/dL Hct (39.0-53.0) % Neutrophils # (1.3-7.7) k/uL Lymphocytes # (1.0-4.8) k/uL Sodium (137-145) mmol/L Carbon Dioxide (22-30) mmol/L BUN (9-20) mg/dL Creatinine (0.66-1.25) mg/dL Glucose (74-99) mg/dL POC Glucose (mg/dL) 117 H 154 H 225 H (70-110) mg/dL 08/17/24 08/17/24 08/17/24 Range/Units 04:39 05:53 05:53 WBC 21.2 H (3.8-10.6) k/uL RBC 2.41 L (4.30-5.90) m/uL Hgb 7.5 L (13.0-17.5) gm/dL Hct 21.9 L (39.0-53.0) % Neutrophils # 20.3 H (1.3-7.7) k/uL Lymphocytes # 0.2 L (1.0-4.8) k/uL Sodium 134 L (137-145) mmol/L Carbon Dioxide 18 L (22-30) mmol/L BUN 132 H* (9-20) mg/dL Creatinine 1.89 H (0.66-1.25) mg/dL Glucose 180 H (74-99) mg/dL POC Glucose (mg/dL) 227 H (70-110) mg/dL 08/17/24 08/17/24 08/17/24 Range/Units 06:15 07:07 08:38 WBC (3.8-10.6) k/uL RBC (4.30-5.90) m/uL Hgb (13.0-17.5) gm/dL Hct (39.0-53.0) % Neutrophils # (1.3-7.7) k/uL Lymphocytes # (1.0-4.8) k/uL Sodium (137-145) mmol/L Carbon Dioxide (22-30) mmol/L BUN (9-20) mg/dL Creatinine (0.66-1.25) mg/dL Glucose (74-99) mg/dL POC Glucose (mg/dL) 238 H 206 H 172 H (70-110) mg/dL Assessment and Plan Plan: Assessment: 1. Acute kidney injury secondary to ATN secondary to severe sepsis. Creatinine peaked at 2.37 this admission and is 1.89 today. No hydronephrosis noted on imaging. UA benign. BUN disproportionately elevated partially due to steroids. Hemoglobin stable at 7.5. Questionable GI bleed. 2. Chronic kidney disease stage IIIa with baseline creatinine 1.2-1.4 secondary to nephrosclerosis. 3. Acute on chronic diastolic CHF. 4. Volume overload. 5. Metabolic acidosis secondary to acute kidney injury. 6. Recent Influenza A pneumonia status post Tamiflu. 7. Hypervolemic hyponatremia. Better. 8. Acute blood loss anemia with concern for GI bleed status post blood transfusions this admission. Plan: Maintain IV Lasix. Check iron studies. Avoid nephrotoxins. Wean FiO2. Add oral bicarb.
[2024-08-17 09:43] LABS: Glucose,Whole Blood 257 mg/dL (70-110)
[2024-08-17] MEDS: SODIUM BICARBONATE TAB 650 MG TAB PO SCH (10:23)
--- NOTE | 2024-08-17 10:56 | P.PN ---
Subjective Progress Note Date: 08/17/24 Principal diagnosis: Hospital course: Acute on chronic hypoxic respiratory failure, multifactorial Patient is a 64-year-old male with past medical history significant for atrial fibrillation, diabetes mellitus, CKD stage III, hypertension, hyperlipidemia, tobacco smoker. Of note, recently had a prolonged hospitalization 07/19/2024 through 07/31/2024. Treated for combination of influenza A, pneumonia, CHF. Completed course of antibiotics and Tamiflu. At this time, did require noninvasive BiPAP, eventually discharged on home O2. Returns with a chief complaint of shortness of breath progressing over the last 2 to 3 days. Also, reports sudden onset substernal chest pain that developed the night prior and has been persistent. On arrival to the ED, found to be in some respiratory distress, and placed on BiPAP. Workup in the emergency department including a chest x-ray showing multifocal infiltrates concerning for pneumonia or pulmonary edema. D-dimer was elevated in setting CT angio protocol which was positive for segmental and subsegmental right middle lobe and right lower lobe pulmonary emboli. No saddle pulmonary embolus. Pulmonary artery mildly enlarged. Preserved RV to LV ratio. There were diffuse coarse reticular infiltrates, as well as, groundglass lung attenuation, cystic changes, with concerns for interstitial lung disease. Patient does take Eliquis for his history of atrial fibrillation. Does state he has missed some doses lately. CBC: WBC count 22.6, hemoglobin 11, platelets 322. CMP: Sodium 133, potassium 4.2, chloride 101, serum bicarb 24, BUN 30, creatinine 1.27, glucose 135. Lactic 1.5. VBG with a pH of 7.5 and pCO2 of 32. EKG: Sinus rhythm, rate 65 bpm, left bundle branch block, not acute. Elevated serial troponins 0.049 and 0.055 respectively. NT proBNP elevated 8807. Patient is currently being evaluated in the emergency department. He is alert and some moderate respiratory distress. On BiPAP with settings 12/5 and FiO2 60%. Tachypneic, breathing around 40 breaths/min. Endorses progressive worsening difficulty in breathing over last couple days. He has tried to increase his supplemental oxygen at home without any relief. Denies previous history of DVT or PE. Associated nonproductive cough. Denies sputum production or hemoptysis. Substernal nonradiating chest pain persist. Denies any fevers or chills. Denies heart palpitations or syncopal events. Denies swelling in the lower extremities. Heart rhythm is normal sinus on bedside monitor. Blood pressure has been normotensive, did receive 2 L of crystalloid fluid bolus earlier. Not requiring any vasopressors. Normal saline is infusing at 150 mL/h. IV heparin infusing per protocol 08/06/2024, the patient is being seen for a follow-up. The patient is alternating between BiPAP at a pressure of 12/5 with an FiO2 of 60% and 15 L of oxygen by nasal cannula. He is getting slightly anxious and the patient is being provided Xanax accordingly. Fluid balance is -1.1 L over the past 24 hours. Limited echocardiogram was also done and it showed preserved LV function with an EF of around 55 to 60%. Valvular functions could not be accurately assessed as the patient's study was technically difficult study. There was however RV dilatation. Unable to estimate RV pressures. The electrolytes from today showed a creatinine of 1.5 with a BUN of 35. Bicarb is at 21. Sodium is at 132. The patient remains on DuoNeb updrafts. The patient remains on a combination of cefepime and vancomycin. The patient was taken off the IV heparin and the patient was started on anticoagulation with Eliquis. Remains on IV Solu-Medrol 60 mg every 6 hours. Remains on Aldactone. Remains on IV Lasix 40 mg every 12 hours. On today's evaluation of 08/07/2024, the patient is overall condition is essentially unchanged. Continues to be hypoxic, continues to be on BiPAP and the patient remains at a pressure of 12/5 with an FiO2 of 60%. Continues to have crackles in lung base bilaterally. White cell count remains elevated at 20 with a hemoglobin 9.2. Very much BiPAP dependent as the patient desaturates once taken off the BiPAP. BUN is 44 with a platelet of 1.5. Sodium levels at 134 and a potassium level is at 3.4. Remains on DuoNeb updrafts. Remains on IV Lasix 40 mg every 12 hours. Remains on Aldactone. Remains on bronchodilators. Remains on steroids. Empiric antibiotic coverage with IV cefepime. Reviewed the CAT scan again and there is some chronic interstitial changes and the patient has diffuse infiltrates with areas of groundglass. Consider acute interstitial pneumonias. Consider fungal pneumonias. On today's evaluation of 08/08/2024, the patient is feeling slightly better compared to yesterday. The patient is off the BiPAP and the patient is currently on 15 L of oxygen by nasal cannula. Remains on bronchodilators. Remains on IV Solu-Medrol. Remains on IV Lasix. Antibiotic coverage including combination of cefepime, Levaquin orally and itraconazole orally. Fungal antibodies are still pending. Meanwhile, rheumatologic profile showed a negative rheumatoid factor and negative MARISA. Legionella urine antigen is still pending for now. Clinically however, the patient is feeling slightly improved compared to yesterday. His chest x-ray continues to show multifocal airspace disease more so in the right lung. Fluid balance has been negative. The patient's creatinine is currently at 1.6 with a BUN of 54 and a sodium levels at 133. I am going to taper the steroids. The white cell count is 18.2 with a hemoglobin of 9.2. On 08/09/2024, the patient is transferred to the intensive care unit for closer monitoring. As mentioned, the patient developed acute hypoxic respiratory fa ilure with diffuse bilateral pulmonary filtrates discussed earlier. The patient was able to tolerate Airvo, however, overnight, the patient developed epistaxis. Therefore was discontinued the patient was placed back on BiPAP and his current BiPAP is running at a pressure of 12 over 5 cm of water with an FiO2 of 80%. The patient seems to be quite dependent on the BiPAP. Unable to drop the FiO2 any further. Repeat chest x-ray was done and shows stable diffuse bilateral pulm infiltrates which remains essentially unchanged compared to yesterday. Clinically, the patient is awake and alert. He is reported to have some congested cough. No significant sputum production. No chest pain. No h emoptysis. Noted, over the past 48 hours, the patient was diuresed with IV Lasix. Nevertheless, we have not seen any improvement in the patient's oxygenation. The patient was negative fluid balance. His BNP today is at 68 with a creatinine of 1.7. Based on that, I stopped diuretics. Rest of the electrolytes are all within normal limits. White cell count of 21 with a hemoglobin 9.1 and a platelet count of 245. The patient remains on broad- spectrum antibiotics. The patient remains on IV cefepime, itraconazole and Levaquin. Fungal antibodies are still pending for now. MARISA and rheumatoid factor were both negative. Legionella urine antigen was also negative. The patient remains on anticoagulation and I am going to drop the Eliquis dose to 5 mg p.o. twice a day. I am not absolutely convinced that the patient has a pulmonary embolism. I reviewed the CAT scan of the chest and there could be potentially some subsegmental filling defects in the right, however, the overall contrast administration was essentially poor. The patient will be monitored very closely in the intensive care unit. On a separate note, the patient was started on insulin drip for blood sugar control. Patient was seen today on 08/10/2024, remains in the ICU, remains on fluid restrictions for low sodium of 128, he is on BiPAP 12//60%, patient is presenting this time very much similar to his last presentation few weeks ago. I am familiar with this patient, and on his last admission patient responded to treatment with mostly diuretics, and steroids. This time came back with a similar presentation, he is receiving diuretics, but has been on hold for the last 24 hours, and I recommended we go back on Lasix 40 mg IV push every 12 hours, patient is receiving Solu-Medrol at 60 mg IV push every 8 hours, he is also on Levaquin's, cefepime, and he is marginal at best. In addition to this the patient had non-ST elevation myocardial infarction and flu/influenza A back on 08/04. Blood cultures have been negative, patient has leukocytosis with WBC count of 21.7 hemoglobin is 7.9. Creatinine has been slightly rising 1.51 on admission which is about his baseline, today his creatinine is 1.97 with a BUN of 95. Legionella antigen has been negative MARISA screen has been negative rheumatoid factor is negative patient continues to complain of shortness of breath, intermittent cough, and wheezing. Patient was seen today on 08/11/2024, remains in the ICU, remains on BiPAP, patient is down on FiO2 to 50%, so he is on BiPAP 12//50%. Clinically the patient is feeling better breathing easier, remains on empiric antibiotics including cefepime and Levaquin remains on Lasix 40 mg every 12 hours remains on steroids, and today I have noticed probably minimal improvement in his chest x- ray findings. Hence we will continue the same and will make Lasix 40 mg twice daily instead of 40 mg daily. WBC count is 22.8 hemoglobin 7.4 electrolytes are normal BUN is 117 creatinine 2.11 Patient was seen today on 08/12/2024, patient is feeling better today, remains on BiPAP, however he is down to 40%, chest x-ray is showing definite improvement in comparison to previous x-rays of the chest. Patient remains on diuretics remains on antibiotics and remains on steroids, hence I have no plans to cut down on his diuretics at this point specially with his improvement clinically and improvement noted on the chest x-ray. As a matter fact I was able to discontinue BiPAP, and I placed the patient on a high flow nasal cannula 10 L and he is saturating anywhere between 97 to 99%. Creatinine is noted to be a bit higher today 2.28, his BUN is 125, his WBC count remains elevated at 18.1, hemoglobin is 7. Patient remains quite edematous, and he remains on diuretics in the form of Lasix and Aldactone. Patient was seen today on 08/13/2024, basically about the same, hemoglobin is low and the patient will receive 1 unit of packed RBCs today. Last night he had to go back on BiPAP, although he was tried on high flow nasal cannula throughout the day yesterday, Desaturating and kept getting anxious and agitated, then he was placed on BiPAP overnight, and he remains on BiPAP 12/5/50%. Hemoglobin today is 6.2, had some recommending at least a unit of packed RBCs. Chest x-ray continues to show bilateral interstitial edema/infiltrates. Patient remains on cefepime, IV fluids at KVO, remains on diuretics. Renal functioning is holding and not showing any significant change. Seen today on 08/14/2024, patient was on BiPAP at night, however earlier this morning he was placed down to 8 L high flow nasal cannula. Saturating at 93 to 95%. He was on BiPAP 12/5/50% last time. Remains on Lasix 40 mg IV push twice daily remains on Solu-Medrol 60 every 6 remains on cefepime. Patient has been on Sporanox. Some improvement today compared to the last few days, no chest x- ray was done, but the patient seems to be more comfortable on high flow nasal cannula compared to BiPAP. Continues to have leukocytosis but improving with WBC of 16.5 electrolytes are normal bicarb is normal BUN is 123 creatinine 2.33 blood sugar is 305. Patient was seen today on 08/15/2024, remains in the ICU, presently on 15 L high flow nasal cannula, he was on BiPAP 12/50% last night. Patient is also on insulin drip 7 units/h for elevated blood sugar, cefepime Lasix 40 mg twice daily and today I cut down his Solu-Medrol to 40 mg IV push every 12 hours. Chest x-ray continues to show edema/infiltrates at the base of his lungs, however overall his chest x-ray is much better now compared to his initial chest x-ray on admission. Clinical improvement but not quite ready to be transferred out of the ICU today, patient remains marginal in spite of the improvement noted. And he has very complex multiple medical issues being addressed. WBC count today is a bit higher at 19.9 hemoglobin is holding at 7.2 electrolytes are normal BUN is 118 creatinine 2.37 slightly higher. Patient remains in negative fluid balance. Patient was seen today on 08/16/2024, remains in the ICU, on 15 L high flow nasal cannula on insulin at 5 units/h remains on cefepime Lasix Sporanox and Solu- Medrol patient is feeling better today compared to baseline. He seems to be less edematous, less shortness of breath, chest x-ray continues show bilateral interstitial infiltrates/edema. His renal functioning is holding about the same, hence I have made no changes in his diuresis regimen today. And I have kept him on the same medications, patient is improving but very slowly. WBC count today is 20.6 hemoglobin 7.3 electrolytes are normal BUN is 118 creatinine 2.22 08/17/24: Patient seen and examined at bedside today. Patient denies any chest pain, shortness of breath, abdominal pain. He does express his wish to be out of bed and in the chair more frequently but mentions that he is unable to do so on his own. He reports feeling thirsty and wanting to drink more water but was counseled that he is on fluid restriction and is currently getting Lasix. He continues to be on 15L of oxygen via high flow nasal cannula. Chest x-ray done today shows mild cardiomegaly with right greater than left bilateral lower lung acute infiltrates, some improved aeration in the left lower lung noted. Vitals today show temperature 98.2, pulse 61, 32, BP 141/54. Labs today show creatinine 1.89, BUN 132, WBC 21.0, hemoglobin 7.5, sodium 134, bicarb 18, albumin 3.2. Patient continues to be on Solu-Medrol 40 mg IV every 12 hours and Lasix. He is also on cefepime and itraconazole. Patient wishes No code. Patient is on 0.9 normal saline at 10 mL/h and insulin at 2.6. Objective - Vital Signs Vital signs: Vital Signs Temp 98.2 F 08/17/24 08:00 Pulse 81 08/17/24 10:00 Resp 15 08/17/24 10:00 BP 143/51 08/17/24 10:00 Pulse Ox 92 L 08/17/24 10:00 FiO2 15 08/16/24 18:00 Intake & Output 08/16/24 08/17/24 08/17/24 18:59 06:59 18:59 Intake Total 1494.467 169.563 248.843 Output Total 1675 2100 700 Balance -180.533 -1930.437 -451.157 Weight 100.5 kg Intake: IV 105 120 40 .9 105 120 40 Intake, IV Titration 179.467 49.563 8.843 Amount Cefepime 2 gm In Sodium 100 Chloride 0.9% 100 ml @ 25 mls/hr IVPB Q12H [facility] Rx# :[id number] Insulin Regular 100 unit 79.467 49.563 8.843 In Sodium Chloride 0.9% 100 ml @ Titrate IV .Q0M [facility] Rx#:[id number] Oral 1210 200 Output: Urine 1675 2100 700 Other: Voiding Method External Catheter External Catheter External Catheter # Bowel Movements 0 - Exam GENERAL EXAM: 64-year-old white male obese , 15 L high flow nasal cannula HEAD: Normocephalic and atraumatic EYES: Normal reaction of pupils, equal size. NOSE: Normal nasal mucosa no further epistaxis THROAT: No erythema or exudates. NECK: No masses, no JVD. CHEST: No chest wall deformity. Lungs: Bibasilar crackles crackles at the bases persist. CVS: S1 and S2 normal with soft systolic murmur, regular rhythm. No other extra heart sounds ABDOMEN: No hepatosplenomegaly, active bowel sounds, no guarding or rigidity. SKIN: No rashes CENTRAL NERVOUS SYSTEM: Alert oriented x 3 no gross focal deficit EXTREMITIES: No clubbing, no edema, no cyanosis - Labs CBC & Chem 7: 08/17/24 05:53 08/17/24 05:53 Labs: Abnormal Lab Results - Last 24 Hours (Table) 08/16/24 08/16/24 08/16/24 Range/Units 11:51 14:03 15:56 WBC (3.8-10.6) k/uL RBC (4.30-5.90) m/uL Hgb (13.0-17.5) gm/dL Hct (39.0-53.0) % Neutrophils # (1.3-7.7) k/uL Lymphocytes # (1.0-4.8) k/uL Sodium (137-145) mmol/L Carbon Dioxide (22-30) mmol/L BUN (9-20) mg/dL Creatinine (0.66-1.25) mg/dL Glucose (74-99) mg/dL POC Glucose (mg/dL) 250 H 316 H 278 H (70-110) mg/dL Albumin (3.5-5.0) g/dL 08/16/24 08/16/24 08/16/24 Range/Units 17:04 17:58 18:58 WBC (3.8-10.6) k/uL RBC (4.30-5.90) m/uL Hgb (13.0-17.5) gm/dL Hct (39.0-53.0) % Neutrophils # (1.3-7.7) k/uL Lymphocytes # (1.0-4.8) k/uL Sodium (137-145) mmol/L Carbon Dioxide (22-30) mmol/L BUN (9-20) mg/dL Creatinine (0.66-1.25) mg/dL Glucose (74-99) mg/dL POC Glucose (mg/dL) 207 H 175 H 175 H (70-110) mg/dL Albumin (3.5-5.0) g/dL 08/16/24 08/16/24 08/17/24 Range/Units 20:54 22:29 00:01 WBC (3.8-10.6) k/uL RBC (4.30-5.90) m/uL Hgb (13.0-17.5) gm/dL Hct (39.0-53.0) % Neutrophils # (1.3-7.7) k/uL Lymphocytes # (1.0-4.8) k/uL Sodium (137-145) mmol/L Carbon Dioxide (22-30) mmol/L BUN (9-20) mg/dL Creatinine (0.66-1.25) mg/dL Glucose (74-99) mg/dL POC Glucose (mg/dL) 151 H 145 H 117 H (70-110) mg/dL Albumin (3.5-5.0) g/dL 08/17/24 08/17/24 08/17/24 Range/Units 01:15 02:44 04:39 WBC (3.8-10.6) k/uL RBC (4.30-5.90) m/uL Hgb (13.0-17.5) gm/dL Hct (39.0-53.0) % Neutrophils # (1.3-7.7) k/uL Lymphocytes # (1.0-4.8) k/uL Sodium (137-145) mmol/L Carbon Dioxide (22-30) mmol/L BUN (9-20) mg/dL Creatinine (0.66-1.25) mg/dL Glucose (74-99) mg/dL POC Glucose (mg/dL) 154 H 225 H 227 H (70-110) mg/dL Albumin (3.5-5.0) g/dL 08/17/24 08/17/24 08/17/24 Range/Units 05:53 05:53 05:53 WBC 21.2 H (3.8-10.6) k/uL RBC 2.41 L (4.30-5.90) m/uL Hgb 7.5 L (13.0-17.5) gm/dL Hct 21.9 L (39.0-53.0) % Neutrophils # 20.3 H (1.3-7.7) k/uL Lymphocytes # 0.2 L (1.0-4.8) k/uL Sodium 134 L (137-145) mmol/L Carbon Dioxide 18 L (22-30) mmol/L BUN 132 H* (9-20) mg/dL Creatinine 1.89 H (0.66-1.25) mg/dL Glucose 180 H (74-99) mg/dL POC Glucose (mg/dL) (70-110) mg/dL Albumin 3.2 L (3.5-5.0) g/dL 08/17/24 08/17/24 08/17/24 Range/Units 06:15 07:07 08:38 WBC (3.8-10.6) k/uL RBC (4.30-5.90) m/uL Hgb (13.0-17.5) gm/dL Hct (39.0-53.0) % Neutrophils # (1.3-7.7) k/uL Lymphocytes # (1.0-4.8) k/uL Sodium (137-145) mmol/L Carbon Dioxide (22-30) mmol/L BUN (9-20) mg/dL Creatinine (0.66-1.25) mg/dL Glucose (74-99) mg/dL POC Glucose (mg/dL) 238 H 206 H 172 H (70-110) mg/dL Albumin (3.5-5.0) g/dL 08/17/24 Range/Units 09:42 WBC (3.8-10.6) k/uL RBC (4.30-5.90) m/uL Hgb (13.0-17.5) gm/dL Hct (39.0-53.0) % Neutrophils # (1.3-7.7) k/uL Lymphocytes # (1.0-4.8) k/uL Sodium (137-145) mmol/L Carbon Dioxide (22-30) mmol/L BUN (9-20) mg/dL Creatinine (0.66-1.25) mg/dL Glucose (74-99) mg/dL POC Glucose (mg/dL) 257 H (70-110) mg/dL Albumin (3.5-5.0) g/dL Assessment and Plan Assessment: Acute on chronic hypoxic respiratory failure, multifactorial, I suspect this is mostly a picture of pulmonary edema, underlying pneumonia is not entirely ruled out. Hence the patient will remain on antibiotics and diuretics. Acute exacerbation of chronic systolic congestive heart failure, recent echocardiogram from 07/20/2024 estimating a left ventricular ejection fraction of 45 to 50%, moderate pulmonary hypertension, and moderate tricuspid regurgitation. Repeat echocardiogram showed improvement in LV function with ejection fraction 55% Acute leukocytosis Acute on chronic kidney disease Recent influenza A infection History of atrial fibrillation with previous cardioversion History of underlying COPD and chronic tobacco dependence Benign essential hypertension Type 2 diabetes Acute on chronic anemia patient will require a unit of packed RBCs to be transfused today. And will continue to monitor for any blood loss specially GI blood losses. Plan: Continue to monitor in the ICU Continue high flow nasal cannula, titrate FiO2 accordingly Continue Lasix 40 mg IV Q12HR Started on sodium bicarbonate tablet 650 mg PO BID Continue bronchodilators Continue Solu-Medrol at 40 mg IV push every 12 hours Continue empiric antibiotics and antifungal patient is on cefepime, and itr aconazole Remains marginal at best Remains quite ill, prognosis remains guarded. Time with Patient: Greater than 30
[2024-08-17 11:06] LABS: Glucose,Whole Blood 293 mg/dL (70-110)
[2024-08-17 12:00] LABS: Glucose,Whole Blood 328 mg/dL (70-110)
[2024-08-17 13:24] LABS: Glucose,Whole Blood 301 mg/dL (70-110)
[2024-08-17 14:37] LABS: Glucose,Whole Blood 298 mg/dL (70-110)
[2024-08-17 15:44] LABS: % Iron Saturation 14.23 (15.00-50.00)
[2024-08-17 16:23] LABS: Glucose,Whole Blood 217 mg/dL (70-110)
[2024-08-17 17:35] LABS: Glucose,Whole Blood 157 mg/dL (70-110)
[2024-08-17 18:30] LABS: Glucose,Whole Blood 139 mg/dL (70-110)
[2024-08-17 20:33] LABS: Glucose,Whole Blood 220 mg/dL (70-110)
[2024-08-17 21:05] LABS: Glucose,Whole Blood 376 mg/dL (70-110)
--- NOTE | 2024-08-17 21:06 | P.PN ---
Subjective Progress Note Date: 08/17/24 Principal diagnosis: Reason for follow-up is pneumonia Patient is a 64-year-old male with a past medical history significant for diabetes mellitus hypertension hyperlipidemia pneumonia atrial fibrillation currently everyday smoker presenting to the hospital for evaluation of increasing shortness of breath patient has been diagnosed with multifocal pneumonia prompting this consultation. On today's evaluation that is 08/17/2024, patient has been afebrile, patient is breathing slightly comfortably and still requiring 11 L high flow nasal cannula oxygen patient denies having any significant cough no chest pain, patient denies nausea vomiting or diarrhea and no abdominal pain. White count is 21.2, creatinine is 1.89 chest x-ray mild cardiomegaly with negative left bilateral lower lung acute infiltrates or edema Objective - Vital Signs Vital signs: Vital Signs Temp 98.0 F 08/17/24 12:00 Pulse 74 08/17/24 13:00 Resp 15 08/17/24 13:00 BP 134/92 08/17/24 13:00 Pulse Ox 99 08/17/24 13:00 FiO2 15 08/16/24 18:00 Intake & Output 08/16/24 08/17/24 08/17/24 18:59 06:59 18:59 Intake Total 1494.467 169.563 702.262 Output Total 1675 2100 1200 Balance -180.533 -1930.437 -497.738 Weight 100.5 kg Intake: IV 105 120 70 .9 105 120 70 Intake, IV Titration 179.467 49.563 32.262 Amount Cefepime 2 gm In Sodium 100 Chloride 0.9% 100 ml @ 25 mls/hr IVPB Q12H [facility] Rx# :[id number] Insulin Regular 100 unit 79.467 49.563 32.262 In Sodium Chloride 0.9% 100 ml @ Titrate IV .Q0M [facility] Rx#:[id number] Oral 1210 600 Output: Urine 1675 2100 1200 Other: Voiding Method External Catheter External Catheter External Catheter # Bowel Movements 0 - Exam GENERAL DESCRIPTION: An elderly male lying in bed in no distress RESPIRATORY SYSTEM: Unlabored breathing , coarse breath sounds bilaterally HEART: S1 S2 regular rate and rhythm , ABDOMEN: Soft , no tenderness EXTREMITIES: 2+ edema feet - Labs CBC & Chem 7: 08/17/24 05:53 08/17/24 05:53 Labs: Abnormal Lab Results - Last 24 Hours (Table) 08/16/24 08/16/24 08/16/24 Range/Units 14:03 15:56 17:04 WBC (3.8-10.6) k/uL RBC (4.30-5.90) m/uL Hgb (13.0-17.5) gm/dL Hct (39.0-53.0) % Neutrophils # (1.3-7.7) k/uL Lymphocytes # (1.0-4.8) k/uL Sodium (137-145) mmol/L Carbon Dioxide (22-30) mmol/L BUN (9-20) mg/dL Creatinine (0.66-1.25) mg/dL Glucose (74-99) mg/dL POC Glucose (mg/dL) 316 H 278 H 207 H (70-110) mg/dL Albumin (3.5-5.0) g/dL 08/16/24 08/16/24 08/16/24 Range/Units 17:58 18:58 20:54 WBC (3.8-10.6) k/uL RBC (4.30-5.90) m/uL Hgb (13.0-17.5) gm/dL Hct (39.0-53.0) % Neutrophils # (1.3-7.7) k/uL Lymphocytes # (1.0-4.8) k/uL Sodium (137-145) mmol/L Carbon Dioxide (22-30) mmol/L BUN (9-20) mg/dL Creatinine (0.66-1.25) mg/dL Glucose (74-99) mg/dL POC Glucose (mg/dL) 175 H 175 H 151 H (70-110) mg/dL Albumin (3.5-5.0) g/dL 08/16/24 08/17/24 08/17/24 Range/Units 22:29 00:01 01:15 WBC (3.8-10.6) k/uL RBC (4.30-5.90) m/uL Hgb (13.0-17.5) gm/dL Hct (39.0-53.0) % Neutrophils # (1.3-7.7) k/uL Lymphocytes # (1.0-4.8) k/uL Sodium (137-145) mmol/L Carbon Dioxide (22-30) mmol/L BUN (9-20) mg/dL Creatinine (0.66-1.25) mg/dL Glucose (74-99) mg/dL POC Glucose (mg/dL) 145 H 117 H 154 H (70-110) mg/dL Albumin (3.5-5.0) g/dL 08/17/24 08/17/24 08/17/24 Range/Units 02:44 04:39 05:53 WBC 21.2 H (3.8-10.6) k/uL RBC 2.41 L (4.30-5.90) m/uL Hgb 7.5 L (13.0-17.5) gm/dL Hct 21.9 L (39.0-53.0) % Neutrophils # 20.3 H (1.3-7.7) k/uL Lymphocytes # 0.2 L (1.0-4.8) k/uL Sodium (137-145) mmol/L Carbon Dioxide (22-30) mmol/L BUN (9-20) mg/dL Creatinine (0.66-1.25) mg/dL Glucose (74-99) mg/dL POC Glucose (mg/dL) 225 H 227 H (70-110) mg/dL Albumin (3.5-5.0) g/dL 08/17/24 08/17/24 08/17/24 Range/Units 05:53 05:53 06:15 WBC (3.8-10.6) k/uL RBC (4.30-5.90) m/uL Hgb (13.0-17.5) gm/dL Hct (39.0-53.0) % Neutrophils # (1.3-7.7) k/uL Lymphocytes # (1.0-4.8) k/uL Sodium 134 L (137-145) mmol/L Carbon Dioxide 18 L (22-30) mmol/L BUN 132 H* (9-20) mg/dL Creatinine 1.89 H (0.66-1.25) mg/dL Glucose 180 H (74-99) mg/dL POC Glucose (mg/dL) 238 H (70-110) mg/dL Albumin 3.2 L (3.5-5.0) g/dL 0308/17/24 08/17/24 Range/Units 07:07 08:38 09:42 WBC (3.8-10.6) k/uL RBC (4.30-5.90) m/uL Hgb (13.0-17.5) gm/dL Hct (39.0-53.0) % Neutrophils # (1.3-7.7) k/uL Lymphocytes # (1.0-4.8) k/uL Sodium (137-145) mmol/L Carbon Dioxide (22-30) mmol/L BUN (9-20) mg/dL Creatinine (0.66-1.25) mg/dL Glucose (74-99) mg/dL POC Glucose (mg/dL) 206 H 172 H 257 H (70-110) mg/dL Albumin (3.5-5.0) g/dL 08/17/24 08/17/24 08/17/24 Range/Units 11:05 11:59 13:23 WBC (3.8-10.6) k/uL RBC (4.30-5.90) m/uL Hgb (13.0-17.5) gm/dL Hct (39.0-53.0) % Neutrophils # (1.3-7.7) k/uL Lymphocytes # (1.0-4.8) k/uL Sodium (137-145) mmol/L Carbon Dioxide (22-30) mmol/L BUN (9-20) mg/dL Creatinine (0.66-1.25) mg/dL Glucose (74-99) mg/dL POC Glucose (mg/dL) 293 H 328 H 301 H (70-110) mg/dL Albumin (3.5-5.0) g/dL Assessment and Plan (1) Leukocytosis Current Visit: Yes Status: Acute Code(s): D72.829 - ELEVATED WHITE BLOOD CELL COUNT, UNSPECIFIED SNOMED Code(s): 934160832 (2) Bilateral pneumonia Current Visit: Yes Status: Acute Code(s): J18.9 - PNEUMONIA, UNSPECIFIED ORGANISM SNOMED Code(s): 211703900 Plan: 1patient presented hospital with increasing shortness of breath and chest pain which is likely multifactorial in this patient who did have evidence of PE on the CT there is also evidence of multifocal pneumonia with elevated white count and recently acute influenza A will need to cover for resistant gram-positive as well as gram-negative pathogen for post influenza pneumonia 2-blood culture has been negative no sputum has been collected, histo serology came back negative 3-patient histoplasma serology negative will discontinue itraconazole, white count still elevated could be steroid related and monitor closely Dictation was produced using [email or web address] dictation software. please excuse any grammatical, word or spelling errors. Time with Patient: Less than 30
[2024-08-17 22:05] LABS: Glucose,Whole Blood 243 mg/dL (70-110)
[2024-08-17 23:11] LABS: Glucose,Whole Blood 213 mg/dL (70-110)
[2024-08-18 02:21] LABS: Glucose,Whole Blood 99 mg/dL (70-110)
[2024-08-18 03:07] LABS: Glucose,Whole Blood 110 mg/dL (70-110)
[2024-08-18 04:12] LABS: Glucose,Whole Blood 177 mg/dL (70-110)
[2024-08-18 05:06] LABS: Glucose,Whole Blood 236 mg/dL (70-110)
[2024-08-18 05:57] LABS: HCT 21.8 % (39.0-53.0); HGB 7.3 gm/dL (13.0-17.5); MCH 30.9 pg (25.0-35.0); MCHC 33.7 g/dL (31.0-37.0); MCV 91.9 fL (80.0-100.0); Mean Platelet Volume 10.6; Platelet Count 203 k/uL (150-450); RBC 2.38 m/uL (4.30-5.90); RDW 13.5 % (11.5-15.5); WBC 22.4 k/uL (3.8-10.6)
[2024-08-18 06:12] LABS: Glucose,Whole Blood 209 mg/dL (70-110)
[2024-08-18 06:18] LABS: African American GFR (CKD) 31 (>60 ml/min/1.73 sqM); Anion Gap 5 mmol/L; Blood Urea Nitrogen 116 mg/dL (9-20); C Reactive Protein <0.5 mg/dL (<1.0); Calcium 8.8 mg/dL (8.4-10.2); Carbon Dioxide 27 mmol/L (22-30); Chloride 101 mmol/L (98-107); Glucose 169 mg/dL (74-99); Non-African American GFR(CKD) 27 (>60 ml/min/1.73 sqM); Potassium 4.6 mmol/L (3.5-5.1); Sodium 133 mmol/L (137-145)
--- NOTE | 2024-08-18 06:45 | XR ---
EXAMINATION TYPE: XR chest 1V portable DATE OF EXAM: 08/18/2024 5:26 AM COMPARISON: Multiple radiographs, with the most recent on 08/17/2024 TECHNIQUE: XR chest 1V portable Portable AP radiograph of the chest. CLINICAL INDICATION:Male, 64 years old with history of SOB; FINDINGS: Lungs/Pleura: Blunting of the bilateral costophrenic angles. Similar bilateral increased lower lung o pacities. No pneumothorax. Heart/mediastinum: Cardiomediastinal silhouette is enlarged and stable. Atherosclerotic calcificatio ns are seen in the aorta. Musculoskeletal: No acute osseous pathology. IMPRESSION: Overall similar examination with cardiomegaly and bilateral lower lung infiltrates and/or edema. [facility], , 08/18/2024 6:43 AM
--- NOTE | 2024-08-18 07:49 | P.PN ---
Subjective Patient is a 64-year-old male with a PMH of atrial fibrillation on Eliquis, COPD on 2 L home oxygen, [id number] diabetes mellitus, hyperlipidemia, hypertension presenting with shortness of breath. Patient was previously admitted here for acute hypoxic respiratory failure secondary to influenza pneumonia and was discharged on 2 L of home oxygen. Patient states he has been feeling short of breath while at rest. He reports that since being discharged the home oxygen has not been sufficient. He states that he had to keep increasing his oxygen. Patient says shortness of breath is slightly relieved when he is laying down. Denies any orthopnea or PND. Patient endorses a nonproductive cough that is chronic in nature, but says it has been getting worse. Patient admits to having fever, chills. Patient also admits to having non-radiating, pressure-like chest pain over the last few days. Chest pain is not related to exertion and he had no alleviating or aggravating factors. Patient denies any headache, vision changes, nausea, vomiting, diarrhea, abdominal pain, urinary symptoms. EKG independently interpreted displaying sinus rhythm with left bundle branch block that has been seen on prior EKG, rate 65 bpm, QTc 451 ms CXR independently interpreted displaying bilateral multifocal airspace opacities Chest CTA displaying acute segmental and subsegmental pulmonary emboli within the right and middle lower lobes, no saddle embolus, no RV strain, chronic interstitial loading disease Venous Doppler B/L LE displaying no evidence of acute DVT Troponin 0.049, 0.055, proBNP 8810, D-dimer 4.87, WBC 22.6, Hgb 11.0, HCT 35.2, MCV 93.7, platelet 322, PT 11.8, INR 1.1, APTT 28, sodium 133, potassium 4.2, CO2 24, BUN 30, creatinine 1.27, glucose 135 VBG pH 7.52, pCO2 32 T98.2 F, ID 80, RR 26, BP 163/77, O2 sat 90% on BiPAP with FiO2 of 100% August 05: Overflow the ER. Up in the bed. Short of breath. Patient was on BiP AP overnight. This morning on 15 L high flow nasal cannula. Decreased appetite. Has got a cough. Some wheezing. Some sputum production. Decreased appetite. Patient is on IV heparin. Also on IV cefepime. Pulmonary following August 06: Patient did confirm that because Eliquis is very expensive patient was not taking it properly did and take it sparingly at home. Explains patient's PE. Started on Eliquis today by cardiology. IV heparin discontinued. Getting easily short of breath. Requiring BiPAP.. Some cough. Oral intake fair. On IV cefepime and vancomycin. ID following. Also on IV Lasix. Due to worsening renal function will DC vancomycin August 07: Saw this afternoon. On BiPAP. 60%. Ensure ordered. All blood work ordered by pulmonary including fungal. Patient currently on IV cefepime and Levaquin. IV Solu-Medrol. Remain short of breath. Tired. Being followed by pulmonary and ID. Chest x-ray film personally reviewed by me-showing pulm edema bilateral infiltrates especially at the bases. Renal ultrasound nonspecific. UA showing protein 1+. August 08: Remain short of breath. Sitting up in bed. Not able to come off the BiPAP. Remains on IV cefepime. Accu-Cheks running high. Put on insulin drip. On IV Solu-Medrol. Oral intake fair. August 09: Patient remains short of breath. Unable to get off BiPAP. FiO2 increased to 70%. 04/30. Per Dr. Goode: Patient be moved to the ICU. Poor oral intake. Remains on insulin drip. IV Solu-Medrol. Eliquis. IV cefepime and Levaquin. Tired. Sitting up in bed leaning forward short of breath. Chest x-ray film personally reviewed by me: Scattered bilateral infiltrates August 10: ICU. Remains on BiPAP. Decreased oral intake. Sitting up. Short of breath. On IV cefepime. Insulin drip. IV Solu-Medrol. DuoNeb Q4. Rather tired. Also yesterday evening at epistaxis. Nasal packing. August 11: ICU. Mostly been on BiPAP. High flow nasal cannula. Decreased oral intake. Sitting up leaning forward. Remains on IV cefepime or Levaquin insulin drip. A bit tired. Patient has very poor oral intake. Per retail presentation specialist patient will IV Lasix. Note worsening renal function-cut back to Lasix once a day. Given blood pressure running lower side. DC Aldactone and DC amlodipine. August 12: ICU. Patient was taken off BiPAP this morning. Decreased to high flow nasal cannula 10 L. at the bedside. Encourage oral intake. Chopped diet. Per retail presentation specialist nephrology patient to continue on IV Lasix. Blood pressure better after stopping amlodipine and Aldactone yesterday. Encourage oral intake. Incentive spirometry. IV cefepime, Levaquin, I terconazole per ID. August 13: ICU. Yesterday patient was nasal cannula. Overnight repeat put back on BiPAP. Patient did drop his hemoglobin further. Down to 6.2. [place] to be from epistaxis. Given a unit of blood. Further increase in BUN/creatinine. Remains on IV Lasix. Ordered Kerlix to both the lower extremities. Had a good portion of his lunch today. August 14: ICU. Patient seen this morning. 15 L nasal cannula. Reclining in bed. Short of breath. Garrett wrap lower extremity. Patient remains on IV cefepime, IV Lasix 40 mg every 12, insulin drip, IV Solu-Medrol DuoNeb Q4. Did not eat breakfast but had about 100% of his lunch. 08/15/2024, resume the care of the patient today. Patient seen and examined in the ICU. His not tolerating his BiPAP mask more than 1 hour, currently his mildly/moderately tachypneic on 15 L oxygen via nonrebreather. He has apparent swelling of both arms and legs, sitting up in chair feels tired denies chest pain. Patient also on insulin drip at 7 units/h. 08/16 Patient looks similar to yesterday although reports some improvement in his breathing. He used the BiPAP last night which might contributed to his feeling of improvement. He still on IV Lasix 40 mg lowered the dose to twice daily and IV Solu-Medrol 40 mg lowered the dose to 40 mg twice daily. He has more than 1.5 L out since yesterday. He is still on fluid restriction and feels thirsty. His WBC is 20,000 compared to 19.9 yesterday while he is on steroids. Hemoglobin stable at 7.3, creatinine stable at 2.2. Also remains on IV cefepime and itraconazole for possible pneumonia 07/20 Patient improving slowly and gradually Still sitting in chair with mild tachypnea and fluid overload He remains on IV Lasix 40 mg twice daily and IV Solu-Medrol 40 mg twice daily Also he is on IV cefepime and itraconazole WBC is 21,000 today, hemoglobin up to 7.5 and creatinine trended down to 1.8. 07/21 He is slightly on the gradually improving Oxygen requirements improved from 15 L/min down to 9 L/min Hist still mildly tachypneic/dyspneic, and bilateral leg swelling He is not drinking water, patient counseled about fluid restriction Patient currently on IV Lasix 40 mg twice daily and. Sodium bicarb was added WBC 22,000, creatinine slightly up at 2.4 Objective - Vital Signs Vital signs: Vital Signs Temp 97.7 F 08/18/24 05:00 Pulse 60 08/18/24 07:00 Resp 12 08/18/24 07:00 BP 141/56 08/18/24 07:00 Pulse Ox 100 08/18/24 07:00 FiO2 50 08/18/24 05:00 Intake & Output 08/17/24 08/18/24 08/18/24 18:59 06:59 18:59 Intake Total 941.162 703.603 10 Output Total 1600 1250 0 Balance -658.838 -546.397 10 Weight 100.5 kg 100.9 kg Intake: IV 240 110 10 .9 140 110 10 Cefepime 2 gm In Sodium 100 Chloride 0.9% 100 ml @ 25 mls/hr IVPB Q12H [facility] Rx# :[id number] Intake, IV Titration 101.162 53.603 Amount Insulin Regular 100 unit 101.162 53.603 In Sodium Chloride 0.9% 100 ml @ Titrate IV .Q0M [facility] Rx#:[id number] Oral 600 540 Output: Urine 1600 1250 0 Other: Voiding Method External Catheter External Catheter - Exam GENERAL: The patient is alert and oriented x3, not in any acute distress. Well developed, well nourished. HEENT: Pupils are round and equally reacting to light. EOMI. No scleral icterus. No conjunctival pallor. Normocephalic, atraumatic. No pharyngeal erythema. No thyromegaly. CARDIOVASCULAR: S1 and S2 present. No murmurs, rubs, or gallops. -PULMONARY: Chest is clear to auscultation, no wheezing , n bilateral basal crackles. ABDOMEN: Soft, nontender, nondistended, normoactive bowel sounds. No palpable organomegaly. MUSCULOSKELETAL: No joint swelling or deformity. -EXTREMITIES: No cyanosis, clubbing, bilateral arm and leg pitting leg edema NEUROLOGICAL: Gross neurological examination did not reveal any focal deficits. SKIN: No rashes. no petechiae. - Labs CBC & Chem 7: 08/18/24 05:26 08/18/24 05:26 Labs: Abnormal Lab Results - Last 24 Hours (Table) 08/16/24 08/17/24 08/17/24 Range/Units 05:48 05:53 05:53 WBC (3.8-10.6) k/uL RBC (4.30-5.90) m/uL Hgb (13.0-17.5) gm/dL Hct (39.0-53.0) % Sodium (137-145) mmol/L BUN 132 H* (9-20) mg/dL Creatinine (0.66-1.25) mg/dL Glucose (74-99) mg/dL POC Glucose (mg/dL) (70-110) mg/dL Iron 34 L (65-175) UG/DL % Saturation 14.23 L (15.00-50.00) Transferrin 171.0 L (204.0-354.0) mg/dL Ferritin 1164.0 H (22.0-322.0) ng/mL Albumin 3.2 L (3.5-5.0) g/dL 08/17/24 08/17/24 08/17/24 Range/Units 08:38 09:42 11:05 WBC (3.8-10.6) k/uL RBC (4.30-5.90) m/uL Hgb (13.0-17.5) gm/dL Hct (39.0-53.0) % Sodium (137-145) mmol/L BUN (9-20) mg/dL Creatinine (0.66-1.25) mg/dL Glucose (74-99) mg/dL POC Glucose (mg/dL) 172 H 257 H 293 H (70-110) mg/dL Iron (65-175) UG/DL % Saturation (15.00-50.00) Transferrin (204.0-354.0) mg/dL Ferritin (22.0-322.0) ng/mL Albumin (3.5-5.0) g/dL 08/17/24 08/17/2425 Range/Units 11:59 13:23 14:35 WBC (3.8-10.6) k/uL RBC (4.30-5.90) m/uL Hgb (13.0-17.5) gm/dL Hct (39.0-53.0) % Sodium (137-145) mmol/L BUN (9-20) mg/dL Creatinine (0.66-1.25) mg/dL Glucose (74-99) mg/dL POC Glucose (mg/dL) 328 H 301 H 298 H (70-110) mg/dL Iron (65-175) UG/DL % Saturation (15.00-50.00) Transferrin (204.0-354.0) mg/dL Ferritin (22.0-322.0) ng/mL Albumin (3.5-5.0) g/dL 08/17/24 08/17/24 08/17/24 Range/Units 16:22 17:34 18:29 WBC (3.8-10.6) k/uL RBC (4.30-5.90) m/uL Hgb (13.0-17.5) gm/dL Hct (39.0-53.0) % Sodium (137-145) mmol/L BUN (9-20) mg/dL Creatinine (0.66-1.25) mg/dL Glucose (74-99) mg/dL POC Glucose (mg/dL) 217 H 157 H 139 H (70-110) mg/dL Iron (65-175) UG/DL % Saturation (15.00-50.00) Transferrin (204.0-354.0) mg/dL Ferritin (22.0-322.0) ng/mL Albumin (3.5-5.0) g/dL 08/17/24 08/17/24 08/17/24 Range/Units 20:32 21:03 22:04 WBC (3.8-10.6) k/uL RBC (4.30-5.90) m/uL Hgb (13.0-17.5) gm/dL Hct (39.0-53.0) % Sodium (137-145) mmol/L BUN (9-20) mg/dL Creatinine (0.66-1.25) mg/dL Glucose (74-99) mg/dL POC Glucose (mg/dL) 220 H 376 H 243 H (70-110) mg/dL Iron (65-175) UG/DL % Saturation (15.00-50.00) Transferrin (204.0-354.0) mg/dL Ferritin (22.0-322.0) ng/mL Albumin (3.5-5.0) g/dL 08/17/24 08/18/24 08/18/24 Range/Units 23:10 04:11 05:05 WBC (3.8-10.6) k/uL RBC (4.30-5.90) m/uL Hgb (13.0-17.5) gm/dL Hct (39.0-53.0) % Sodium (137-145) mmol/L BUN (9-20) mg/dL Creatinine (0.66-1.25) mg/dL Glucose (74-99) mg/dL POC Glucose (mg/dL) 213 H 177 H 236 H (70-110) mg/dL Iron (65-175) UG/DL % Saturation (15.00-50.00) Transferrin (204.0-354.0) mg/dL Ferritin (22.0-322.0) ng/mL Albumin (3.5-5.0) g/dL 08/18/24 08/18/24 08/18/24 Range/Units 05:26 05:26 06:11 WBC 22.4 H (3.8-10.6) k/uL RBC 2.38 L (4.30-5.90) m/uL Hgb 7.3 L (13.0-17.5) gm/dL Hct 21.8 L (39.0-53.0) % Sodium 133 L (137-145) mmol/L BUN 116 H* (9-20) mg/dL Creatinine 2.40 H (0.66-1.25) mg/dL Glucose 169 H (74-99) mg/dL POC Glucose (mg/dL) 209 H (70-110) mg/dL Iron (65-175) UG/DL % Saturation (15.00-50.00) Transferrin (204.0-354.0) mg/dL Ferritin (22.0-322.0) ng/mL Albumin (3.5-5.0) g/dL Assessment and Plan Assessment: #. Acute pulmonary embolism, non-massive [segmental and subsegmental within the right middle and lower lobes. No RV strain Initially IV heparin, currently on o Eliquis #. Sepsis likely secondary to -viral pneumonia. Secondary bacterial component IV cefepime. Levaquin discontinued on August 12..-also has been on itraconazole started on the August 07 ID and pulmonary following #. Acute hypoxic respiratory failure, secondary to above: Slow to respond Intermittently BiPAP, currently 15 L nasal cannula #. Acute COPD exacerbation, in a prior smoker: Some improvement DuoNeb Q4. IV Solu-Medrol 60 mg Q6. Nebulized Pulmicort #. Acute on chronic heart failure with reduced ejection fraction (EF 45 to 50%): Some improvement IV Lasix 40 mg every 12. Aldactone-discontinued. #. Chronic hypoxic respiratory failure from underlying COPD, 2 L home O2 -Acute kidney injury, likely ATN multifactorial, worsening Admission creatinine 1.27. #. Yxl-[id number]-mocbpqrhr type 2 diabetes, uncontrolled with hyperglycemia seco ndary steroids: Not improving Insulin subcu sliding scale. Stop Levemir. Continues on insulin drip Accu-Cheks ACHS - chronic kidney disease stage III from nephrosclerosis and diabetic nephropathy [creatinine 1.63 in October 2022] Renal ultrasound.: Suboptimal study. No corticomedullary comment. UA protein 1+ -Recent influenza type A #. Essential hypertension- Toprol-XL. Other antihypertensives have been held #. Hyperlipidemia Lipitor -Full code On IV Lasix., IV cefepime, Itroconazole, IV Solu-Medrol 60 mg. Had a good lunch. IV insulin
[2024-08-18 07:56] LABS: Glucose,Whole Blood 175 mg/dL (70-110)
[2024-08-18 08:14] LABS: Glucose,Whole Blood 143 mg/dL (70-110)
[2024-08-18 08:14] LABS: Glucose,Whole Blood 156 mg/dL (70-110)
[2024-08-18 08:59] LABS: Glucose,Whole Blood 214 mg/dL (70-110)
[2024-08-18] MEDS ORDERED: DEXTROSE 50% SYRINGE 50 ML IVP PRN ×4 (09:48→16:19)
[2024-08-18 10:02] LABS: Glucose,Whole Blood 279 mg/dL (70-110)
--- NOTE | 2024-08-18 10:03 | P.PN ---
Subjective Progress Note Date: 08/18/24 Principal diagnosis: Hospital course: Acute on chronic hypoxic respiratory failure, multifactorial Patient is a 64-year-old male with past medical history significant for atrial fibrillation, diabetes mellitus, CKD stage III, hypertension, hyperlipidemia, tobacco smoker. Of note, recently had a prolonged hospitalization 07/19/2024 through 07/31/2024. Treated for combination of influenza A, pneumonia, CHF. Completed course of antibiotics and Tamiflu. At this time, did require noninvasive BiPAP, eventually discharged on home O2. Returns with a chief complaint of shortness of breath progressing over the last 2 to 3 days. Also, reports sudden onset substernal chest pain that developed the night prior and has been persistent. On arrival to the ED, found to be in some respiratory distress, and placed on BiPAP. Workup in the emergency department including a chest x-ray showing multifocal infiltrates concerning for pneumonia or pulmonary edema. D-dimer was elevated in setting CT angio protocol which was positive for segmental and subsegmental right middle lobe and right lower lobe pulmonary emboli. No saddle pulmonary embolus. Pulmonary artery mildly enlarged. Preserved RV to LV ratio. There were diffuse coarse reticular infiltrates, as well as, groundglass lung attenuation, cystic changes, with concerns for interstitial lung disease. Patient does take Eliquis for his history of atrial fibrillation. Does state he has missed some doses lately. CBC: WBC count 22.6, hemoglobin 11, platelets 322. CMP: Sodium 133, potassium 4.2, chloride 101, serum bicarb 24, BUN 30, creatinine 1.27, glucose 135. Lactic 1.5. VBG with a pH of 7.5 and pCO2 of 32. EKG: Sinus rhythm, rate 65 bpm, left bundle branch block, not acute. Elevated serial troponins 0.049 and 0.055 respectively. NT proBNP elevated 8807. Patient is currently being evaluated in the emergency department. He is alert and some moderate respiratory distress. On BiPAP with settings 12/5 and FiO2 60%. Tachypneic, breathing around 40 breaths/min. Endorses progressive worsening difficulty in breathing over last couple days. He has tried to increase his supplemental oxygen at home without any relief. Denies previous history of DVT or PE. Associated nonproductive cough. Denies sputum production or hemoptysis. Substernal nonradiating chest pain persist. Denies any fevers or chills. Denies heart palpitations or syncopal events. Denies swelling in the lower extremities. Heart rhythm is normal sinus on bedside monitor. Blood pressure has been normotensive, did receive 2 L of crystalloid fluid bolus earlier. Not requiring any vasopressors. Normal saline is infusing at 150 mL/h. IV heparin infusing per protocol 08/06/2024, the patient is being seen for a follow-up. The patient is alternating between BiPAP at a pressure of 12/5 with an FiO2 of 60% and 15 L of oxygen by nasal cannula. He is getting slightly anxious and the patient is being provided Xanax accordingly. Fluid balance is -1.1 L over the past 24 hours. Limited echocardiogram was also done and it showed preserved LV function with an EF of around 55 to 60%. Valvular functions could not be accurately assessed as the patient's study was technically difficult study. There was however RV dilatation. Unable to estimate RV pressures. The electrolytes from today showed a creatinine of 1.5 with a BUN of 35. Bicarb is at 21. Sodium is at 132. The patient remains on DuoNeb updrafts. The patient remains on a combination of cefepime and vancomycin. The patient was taken off the IV heparin and the patient was started on anticoagulation with Eliquis. Remains on IV Solu-Medrol 60 mg every 6 hours. Remains on Aldactone. Remains on IV Lasix 40 mg every 12 hours. On today's evaluation of 08/07/2024, the patient is overall condition is essentially unchanged. Continues to be hypoxic, continues to be on BiPAP and the patient remains at a pressure of 12/5 with an FiO2 of 60%. Continues to have crackles in lung base bilaterally. White cell count remains elevated at 20 with a hemoglobin 9.2. Very much BiPAP dependent as the patient desaturates once taken off the BiPAP. BUN is 44 with a platelet of 1.5. Sodium levels at 134 and a potassium level is at 3.4. Remains on DuoNeb updrafts. Remains on IV Lasix 40 mg every 12 hours. Remains on Aldactone. Remains on bronchodilators. Remains on steroids. Empiric antibiotic coverage with IV cefepime. Reviewed the CAT scan again and there is some chronic interstitial changes and the patient has diffuse infiltrates with areas of groundglass. Consider acute interstitial pneumonias. Consider fungal pneumonias. On today's evaluation of 08/08/2024, the patient is feeling slightly better compared to yesterday. The patient is off the BiPAP and the patient is currently on 15 L of oxygen by nasal cannula. Remains on bronchodilators. Remains on IV Solu-Medrol. Remains on IV Lasix. Antibiotic coverage including combination of cefepime, Levaquin orally and itraconazole orally. Fungal antibodies are still pending. Meanwhile, rheumatologic profile showed a negative rheumatoid factor and negative MARISA. Legionella urine antigen is still pending for now. Clinically however, the patient is feeling slightly improved compared to yesterday. His chest x-ray continues to show multifocal airspace disease more so in the right lung. Fluid balance has been negative. The patient's creatinine is currently at 1.6 with a BUN of 54 and a sodium levels at 133. I am going to taper the steroids. The white cell count is 18.2 with a hemoglobin of 9.2. On 08/09/2024, the patient is transferred to the intensive care unit for closer monitoring. As mentioned, the patient developed acute hypoxic respiratory fa ilure with diffuse bilateral pulmonary filtrates discussed earlier. The patient was able to tolerate Airvo, however, overnight, the patient developed epistaxis. Therefore was discontinued the patient was placed back on BiPAP and his current BiPAP is running at a pressure of 12 over 5 cm of water with an FiO2 of 80%. The patient seems to be quite dependent on the BiPAP. Unable to drop the FiO2 any further. Repeat chest x-ray was done and shows stable diffuse bilateral pulm infiltrates which remains essentially unchanged compared to yesterday. Clinically, the patient is awake and alert. He is reported to have some congested cough. No significant sputum production. No chest pain. No h emoptysis. Noted, over the past 48 hours, the patient was diuresed with IV Lasix. Nevertheless, we have not seen any improvement in the patient's oxygenation. The patient was negative fluid balance. His BNP today is at 68 with a creatinine of 1.7. Based on that, I stopped diuretics. Rest of the electrolytes are all within normal limits. White cell count of 21 with a hemoglobin 9.1 and a platelet count of 245. The patient remains on broad- spectrum antibiotics. The patient remains on IV cefepime, itraconazole and Levaquin. Fungal antibodies are still pending for now. MARISA and rheumatoid factor were both negative. Legionella urine antigen was also negative. The patient remains on anticoagulation and I am going to drop the Eliquis dose to 5 mg p.o. twice a day. I am not absolutely convinced that the patient has a pulmonary embolism. I reviewed the CAT scan of the chest and there could be potentially some subsegmental filling defects in the right, however, the overall contrast administration was essentially poor. The patient will be monitored very closely in the intensive care unit. On a separate note, the patient was started on insulin drip for blood sugar control. Patient was seen today on 08/10/2024, remains in the ICU, remains on fluid restrictions for low sodium of 128, he is on BiPAP 12//60%, patient is presenting this time very much similar to his last presentation few weeks ago. I am familiar with this patient, and on his last admission patient responded to treatment with mostly diuretics, and steroids. This time came back with a similar presentation, he is receiving diuretics, but has been on hold for the last 24 hours, and I recommended we go back on Lasix 40 mg IV push every 12 hours, patient is receiving Solu-Medrol at 60 mg IV push every 8 hours, he is also on Levaquin's, cefepime, and he is marginal at best. In addition to this the patient had non-ST elevation myocardial infarction and flu/influenza A back on 08/04. Blood cultures have been negative, patient has leukocytosis with WBC count of 21.7 hemoglobin is 7.9. Creatinine has been slightly rising 1.51 on admission which is about his baseline, today his creatinine is 1.97 with a BUN of 95. Legionella antigen has been negative MARISA screen has been negative rheumatoid factor is negative patient continues to complain of shortness of breath, intermittent cough, and wheezing. Patient was seen today on 08/11/2024, remains in the ICU, remains on BiPAP, patient is down on FiO2 to 50%, so he is on BiPAP 12//50%. Clinically the patient is feeling better breathing easier, remains on empiric antibiotics including cefepime and Levaquin remains on Lasix 40 mg every 12 hours remains on steroids, and today I have noticed probably minimal improvement in his chest x- ray findings. Hence we will continue the same and will make Lasix 40 mg twice daily instead of 40 mg daily. WBC count is 22.8 hemoglobin 7.4 electrolytes are normal BUN is 117 creatinine 2.11 Patient was seen today on 08/12/2024, patient is feeling better today, remains on BiPAP, however he is down to 40%, chest x-ray is showing definite improvement in comparison to previous x-rays of the chest. Patient remains on diuretics remains on antibiotics and remains on steroids, hence I have no plans to cut down on his diuretics at this point specially with his improvement clinically and improvement noted on the chest x-ray. As a matter fact I was able to discontinue BiPAP, and I placed the patient on a high flow nasal cannula 10 L and he is saturating anywhere between 97 to 99%. Creatinine is noted to be a bit higher today 2.28, his BUN is 125, his WBC count remains elevated at 18.1, hemoglobin is 7. Patient remains quite edematous, and he remains on diuretics in the form of Lasix and Aldactone. Patient was seen today on 08/13/2024, basically about the same, hemoglobin is low and the patient will receive 1 unit of packed RBCs today. Last night he had to go back on BiPAP, although he was tried on high flow nasal cannula throughout the day yesterday, Desaturating and kept getting anxious and agitated, then he was placed on BiPAP overnight, and he remains on BiPAP 12/5/50%. Hemoglobin today is 6.2, had some recommending at least a unit of packed RBCs. Chest x-ray continues to show bilateral interstitial edema/infiltrates. Patient remains on cefepime, IV fluids at KVO, remains on diuretics. Renal functioning is holding and not showing any significant change. Seen today on 08/14/2024, patient was on BiPAP at night, however earlier this morning he was placed down to 8 L high flow nasal cannula. Saturating at 93 to 95%. He was on BiPAP 12/5/50% last time. Remains on Lasix 40 mg IV push twice daily remains on Solu-Medrol 60 every 6 remains on cefepime. Patient has been on Sporanox. Some improvement today compared to the last few days, no chest x- ray was done, but the patient seems to be more comfortable on high flow nasal cannula compared to BiPAP. Continues to have leukocytosis but improving with WBC of 16.5 electrolytes are normal bicarb is normal BUN is 123 creatinine 2.33 blood sugar is 305. Patient was seen today on 08/15/2024, remains in the ICU, presently on 15 L high flow nasal cannula, he was on BiPAP 12/50% last night. Patient is also on insulin drip 7 units/h for elevated blood sugar, cefepime Lasix 40 mg twice daily and today I cut down his Solu-Medrol to 40 mg IV push every 12 hours. Chest x-ray continues to show edema/infiltrates at the base of his lungs, however overall his chest x-ray is much better now compared to his initial chest x-ray on admission. Clinical improvement but not quite ready to be transferred out of the ICU today, patient remains marginal in spite of the improvement noted. And he has very complex multiple medical issues being addressed. WBC count today is a bit higher at 19.9 hemoglobin is holding at 7.2 electrolytes are normal BUN is 118 creatinine 2.37 slightly higher. Patient remains in negative fluid balance. Patient was seen today on 08/16/2024, remains in the ICU, on 15 L high flow nasal cannula on insulin at 5 units/h remains on cefepime Lasix Sporanox and Solu- Medrol patient is feeling better today compared to baseline. He seems to be less edematous, less shortness of breath, chest x-ray continues show bilateral interstitial infiltrates/edema. His renal functioning is holding about the same, hence I have made no changes in his diuresis regimen today. And I have kept him on the same medications, patient is improving but very slowly. WBC count today is 20.6 hemoglobin 7.3 electrolytes are normal BUN is 118 creatinine 2.22 08/17/24: Patient seen and examined at bedside today. Patient denies any chest pain, shortness of breath, abdominal pain. He does express his wish to be out of bed and in the chair more frequently but mentions that he is unable to do so on his own. He reports feeling thirsty and wanting to drink more water but was counseled that he is on fluid restriction and is currently getting Lasix. He continues to be on 15L of oxygen via high flow nasal cannula. Chest x-ray done today shows mild cardiomegaly with right greater than left bilateral lower lung acute infiltrates, some improved aeration in the left lower lung noted. Vitals today show temperature 98.2, pulse 61, 32, BP 141/54. Labs today show creatinine 1.89, BUN 132, WBC 21.0, hemoglobin 7.5, sodium 134, bicarb 18, albumin 3.2. Patient continues to be on Solu-Medrol 40 mg IV every 12 hours and Lasix. He is also on cefepime and itraconazole. Patient wishes No code. Patient is on 0.9 normal saline at 10 mL/h and insulin at 2.6. 08/18/24: Patient evaluated at bedside.Patient continues to be in the ICU. He denies any acute complains. He is now on 9L of oxygen via high flow nasal cannula. Patient used BIPAP at 12/5/50% intermittently overnight. Chest X ray done today shows overall similar examination with cardiomegaly and bilateral lower lung infiltrates and/or edema. A midline IV access was obtained yesterday. Histo serologies were negative so Itraconazole was discontinued. Iron studies show Iron 34, TIBC 239, % saturation 14.23, Transferrrin 171, Ferritin 1164. Labs show CRP <0.5, WBC 22.4, hemoglobin 7.3, sodium 133, BUN 116, creatinine 2.4, glucose 169, procalcitonin 0.43. Patient continues to be on 0.9 normal saline at 10 mL/h and insulin drip. Objective - Vital Signs Vital signs: Vital Signs Temp 96.4 F L 08/18/24 08:00 Pulse 73 08/18/24 09:00 Resp 26 H 08/18/24 09:00 BP 147/83 08/18/24 09:00 Pulse Ox 93 L 08/18/24 09:00 FiO2 50 08/18/24 05:00 Intake & Output 08/17/24 08/18/24 08/18/24 18:59 06:59 18:59 Intake Total 941.162 703.603 25.729 Output Total 1600 1250 0 Balance -658.838 -546.397 25.729 Weight 100.5 kg 100.9 kg Intake: IV 240 110 10 .9 140 110 10 Cefepime 2 gm In Sodium 100 Chloride 0.9% 100 ml @ 25 mls/hr IVPB Q12H [facility] Rx# :[id number] Intake, IV Titration 101.162 53.603 15.729 Amount Insulin Regular 100 unit 101.162 53.603 15.729 In Sodium Chloride 0.9% 100 ml @ Titrate IV .Q0M [facility] Rx#:[id number] Oral 600 540 Output: Urine 1600 1250 0 Other: Voiding Method External Catheter External Catheter - Exam GENERAL EXAM: 64-year-old white male obese , 9 L high flow nasal cannula HEAD: Normocephalic and atraumatic EYES: Normal reaction of pupils, equal size. NOSE: Normal nasal mucosa no further epistaxis THROAT: No erythema or exudates. NECK: No masses, no JVD. CHEST: No chest wall deformity. Lungs: Bibasilar crackles crackles at the bases persist. CVS: S1 and S2 normal with soft systolic murmur, regular rhythm. No other extra heart sounds ABDOMEN: No hepatosplenomegaly, active bowel sounds, no guarding or rigidity. SKIN: No rashes CENTRAL NERVOUS SYSTEM: Alert oriented x 3 no gross focal deficit EXTREMITIES: No clubbing, no edema, no cyanosis - Labs CBC & Chem 7: 08/18/24 05:26 08/18/24 05:26 Labs: Abnormal Lab Results - Last 24 Hours (Table) 08/16/24 08/17/24 08/17/24 Range/Units 05:48 05:53 11:05 WBC (3.8-10.6) k/uL RBC (4.30-5.90) m/uL Hgb (13.0-17.5) gm/dL Hct (39.0-53.0) % Sodium (137-145) mmol/L BUN (9-20) mg/dL Creatinine (0.66-1.25) mg/dL Glucose (74-99) mg/dL POC Glucose (mg/dL) 293 H (70-110) mg/dL Iron 34 L (65-175) UG/DL % Saturation 14.23 L (15.00-50.00) Transferrin 171.0 L (204.0-354.0) mg/dL Ferritin 1164.0 H (22.0-322.0) ng/mL Albumin 3.2 L (3.5-5.0) g/dL 08/17/24 08/17/24 08/17/24 Range/Units 11:59 13:23 14:35 WBC (3.8-10.6) k/uL RBC (4.30-5.90) m/uL Hgb (13.0-17.5) gm/dL Hct (39.0-53.0) % Sodium (137-145) mmol/L BUN (9-20) mg/dL Creatinine (0.66-1.25) mg/dL Glucose (74-99) mg/dL POC Glucose (mg/dL) 328 H 301 H 298 H (70-110) mg/dL Iron (65-175) UG/DL % Saturation (15.00-50.00) Transferrin (204.0-354.0) mg/dL Ferritin (22.0-322.0) ng/mL Albumin (3.5-5.0) g/dL 08/17/24 08/17/24 08/17/24 Range/Units 16:22 17:34 18:29 WBC (3.8-10.6) k/uL RBC (4.30-5.90) m/uL Hgb (13.0-17.5) gm/dL Hct (39.0-53.0) % Sodium (137-145) mmol/L BUN (9-20) mg/dL Creatinine (0.66-1.25) mg/dL Glucose (74-99) mg/dL POC Glucose (mg/dL) 217 H 157 H 139 H (70-110) mg/dL Iron (65-175) UG/DL % Saturation (15.00-50.00) Transferrin (204.0-354.0) mg/dL Ferritin (22.0-322.0) ng/mL Albumin (3.5-5.0) g/dL 08/17/24 08/17/24 08/17/24 Range/Units 20:32 21:03 22:04 WBC (3.8-10.6) k/uL RBC (4.30-5.90) m/uL Hgb (13.0-17.5) gm/dL Hct (39.0-53.0) % Sodium (137-145) mmol/L BUN (9-20) mg/dL Creatinine (0.66-1.25) mg/dL Glucose (74-99) mg/dL POC Glucose (mg/dL) 220 H 376 H 243 H (70-110) mg/dL Iron (65-175) UG/DL % Saturation (15.00-50.00) Transferrin (204.0-354.0) mg/dL Ferritin (22.0-322.0) ng/mL Albumin (3.5-5.0) g/dL 08/17/24 08/18/24 08/18/24 Range/Units 23:10 00:29 01:09 WBC (3.8-10.6) k/uL RBC (4.30-5.90) m/uL Hgb (13.0-17.5) gm/dL Hct (39.0-53.0) % Sodium (137-145) mmol/L BUN (9-20) mg/dL Creatinine (0.66-1.25) mg/dL Glucose (74-99) mg/dL POC Glucose (mg/dL) 213 H 156 H 143 H (70-110) mg/dL Iron (65-175) UG/DL % Saturation (15.00-50.00) Transferrin (204.0-354.0) mg/dL Ferritin (22.0-322.0) ng/mL Albumin (3.5-5.0) g/dL 08/18/24 08/18/24 08/18/24 Range/Units 04:11 05:05 05:26 WBC 22.4 H (3.8-10.6) k/uL RBC 2.38 L (4.30-5.90) m/uL Hgb 7.3 L (13.0-17.5) gm/dL Hct 21.8 L (39.0-53.0) % Sodium (137-145) mmol/L BUN (9-20) mg/dL Creatinine (0.66-1.25) mg/dL Glucose (74-99) mg/dL POC Glucose (mg/dL) 177 H 236 H (70-110) mg/dL Iron (65-175) UG/DL % Saturation (15.00-50.00) Transferrin (204.0-354.0) mg/dL Ferritin (22.0-322.0) ng/mL Albumin (3.5-5.0) g/dL 08/18/24 08/18/24 08/18/24 Range/Units 05:26 06:11 07:54 WBC (3.8-10.6) k/uL RBC (4.30-5.90) m/uL Hgb (13.0-17.5) gm/dL Hct (39.0-53.0) % Sodium 133 L (137-145) mmol/L BUN 116 H* (9-20) mg/dL Creatinine 2.40 H (0.66-1.25) mg/dL Glucose 169 H (74-99) mg/dL POC Glucose (mg/dL) 209 H 175 H (70-110) mg/dL Iron (65-175) UG/DL % Saturation (15.00-50.00) Transferrin (204.0-354.0) mg/dL Ferritin (22.0-322.0) ng/mL Albumin (3.5-5.0) g/dL 08/18/24 Range/Units 08:57 WBC (3.8-10.6) k/uL RBC (4.30-5.90) m/uL Hgb (13.0-17.5) gm/dL Hct (39.0-53.0) % Sodium (137-145) mmol/L BUN (9-20) mg/dL Creatinine (0.66-1.25) mg/dL Glucose (74-99) mg/dL POC Glucose (mg/dL) 214 H (70-110) mg/dL Iron (65-175) UG/DL % Saturation (15.00-50.00) Transferrin (204.0-354.0) mg/dL Ferritin (22.0-322.0) ng/mL Albumin (3.5-5.0) g/dL Assessment and Plan Assessment: Acute on chronic hypoxic respiratory failure, multifactorial, I suspect this is mostly a picture of pulmonary edema, underlying pneumonia is not entirely ruled out. Hence the patient will remain on antibiotics and diuretics. Acute exacerbation of chronic systolic congestive heart failure, recent echocardiogram from 07/20/2024 estimating a left ventricular ejection fraction of 45 to 50%, moderate pulmonary hypertension, and moderate tricuspid regurgitation. Repeat echocardiogram showed improvement in LV function with ejection fraction 55% Acute leukocytosis Acute on chronic kidney disease Recent influenza A infection History of atrial fibrillation with previous cardioversion History of underlying COPD and chronic tobacco dependence Benign essential hypertension Type 2 diabetes Acute on chronic anemia patient will require a unit of packed RBCs to be transfused today. And will continue to monitor for any blood loss specially GI blood losses. Plan: Continue to monitor in the ICU Continue high flow nasal cannula, titrate FiO2 accordingly Continue Lasix 40 mg IV Q12HR Continue sodium bicarbonate tablet 650 mg PO BID Continue bronchodilators Continue Solu-Medrol at 40 mg IV push every 12 hours Continue empiric antibiotics, patient is on cefepime Patient is accepted at [facility] and his Insulin drip is discontinued with addition of Lantus and sliding scale in preparation for discharge Remains marginal at best Remains quite ill, prognosis remains guarded. Time with Patient: Greater than 30
--- NOTE | 2024-08-18 10:06 | P.PN ---
Subjective Patient is seen in follow-up for acute kidney injury on chronic kidney disease. Renal function worse today. Nonoliguric. On 9 L high flow nasal cannula. Vital signs are stable. General: No acute distress. HEENT: Head exam is unremarkable. On high flow nasal cannula. LUNGS: Scattered rhonchi. HEART: Rate and Rhythm are regular. ABDOMEN: Nontender. EXTREMITITES: 1+ edema. Objective - Vital Signs Vital signs: Vital Signs Temp 96.4 F L 08/18/24 08:00 Pulse 73 08/18/24 09:00 Resp 26 H 08/18/24 09:00 BP 147/83 08/18/24 09:00 Pulse Ox 93 L 08/18/24 09:00 FiO2 50 08/18/24 05:00 Intake & Output 08/17/24 08/18/24 08/18/24 18:59 06:59 18:59 Intake Total 941.162 703.603 25.729 Output Total 1600 1250 0 Balance -658.838 -546.397 25.729 Weight 100.5 kg 100.9 kg Intake: IV 240 110 10 .9 140 110 10 Cefepime 2 gm In Sodium 100 Chloride 0.9% 100 ml @ 25 mls/hr IVPB Q12H [facility] Rx# :[id number] Intake, IV Titration 101.162 53.603 15.729 Amount Insulin Regular 100 unit 101.162 53.603 15.729 In Sodium Chloride 0.9% 100 ml @ Titrate IV .Q0M [facility] Rx#:[id number] Oral 600 540 Output: Urine 1600 1250 0 Other: Voiding Method External Catheter External Catheter - Labs CBC & Chem 7: 08/18/24 05:26 08/18/24 05:26 Labs: Abnormal Lab Results - Last 24 Hours (Table) 08/16/24 08/17/24 08/17/24 Range/Units 05:48 05:53 11:05 WBC (3.8-10.6) k/uL RBC (4.30-5.90) m/uL Hgb (13.0-17.5) gm/dL Hct (39.0-53.0) % Sodium (137-145) mmol/L BUN (9-20) mg/dL Creatinine (0.66-1.25) mg/dL Glucose (74-99) mg/dL POC Glucose (mg/dL) 293 H (70-110) mg/dL Iron 34 L (65-175) UG/DL % Saturation 14.23 L (15.00-50.00) Transferrin 171.0 L (204.0-354.0) mg/dL Ferritin 1164.0 H (22.0-322.0) ng/mL Albumin 3.2 L (3.5-5.0) g/dL 08/17/24 08/17/24 08/17/24 Range/Units 11:59 13:23 14:35 WBC (3.8-10.6) k/uL RBC (4.30-5.90) m/uL Hgb (13.0-17.5) gm/dL Hct (39.0-53.0) % Sodium (137-145) mmol/L BUN (9-20) mg/dL Creatinine (0.66-1.25) mg/dL Glucose (74-99) mg/dL POC Glucose (mg/dL) 328 H 301 H 298 H (70-110) mg/dL Iron (65-175) UG/DL % Saturation (15.00-50.00) Transferrin (204.0-354.0) mg/dL Ferritin (22.0-322.0) ng/mL Albumin (3.5-5.0) g/dL 08/17/24 08/17/24 08/17/24 Range/Units 16:22 17:34 18:29 WBC (3.8-10.6) k/uL RBC (4.30-5.90) m/uL Hgb (13.0-17.5) gm/dL Hct (39.0-53.0) % Sodium (137-145) mmol/L BUN (9-20) mg/dL Creatinine (0.66-1.25) mg/dL Glucose (74-99) mg/dL POC Glucose (mg/dL) 217 H 157 H 139 H (70-110) mg/dL Iron (65-175) UG/DL % Saturation (15.00-50.00) Transferrin (204.0-354.0) mg/dL Ferritin (22.0-322.0) ng/mL Albumin (3.5-5.0) g/dL 08/17/24 08/17/24 08/17/24 Range/Units 20:32 21:03 22:04 WBC (3.8-10.6) k/uL RBC (4.30-5.90) m/uL Hgb (13.0-17.5) gm/dL Hct (39.0-53.0) % Sodium (137-145) mmol/L BUN (9-20) mg/dL Creatinine (0.66-1.25) mg/dL Glucose (74-99) mg/dL POC Glucose (mg/dL) 220 H 376 H 243 H (70-110) mg/dL Iron (65-175) UG/DL % Saturation (15.00-50.00) Transferrin (204.0-354.0) mg/dL Ferritin (22.0-322.0) ng/mL Albumin (3.5-5.0) g/dL 08/17/24 08/18/24 08/18/24 Range/Units 23:10 00:29 01:09 WBC (3.8-10.6) k/uL RBC (4.30-5.90) m/uL Hgb (13.0-17.5) gm/dL Hct (39.0-53.0) % Sodium (137-145) mmol/L BUN (9-20) mg/dL Creatinine (0.66-1.25) mg/dL Glucose (74-99) mg/dL POC Glucose (mg/dL) 213 H 156 H 143 H (70-110) mg/dL Iron (65-175) UG/DL % Saturation (15.00-50.00) Transferrin (204.0-354.0) mg/dL Ferritin (22.0-322.0) ng/mL Albumin (3.5-5.0) g/dL 08/18/24 08/18/24 08/18/24 Range/Units 04:11 05:05 05:26 WBC 22.4 H (3.8-10.6) k/uL RBC 2.38 L (4.30-5.90) m/uL Hgb 7.3 L (13.0-17.5) gm/dL Hct 21.8 L (39.0-53.0) % Sodium (137-145) mmol/L BUN (9-20) mg/dL Creatinine (0.66-1.25) mg/dL Glucose (74-99) mg/dL POC Glucose (mg/dL) 177 H 236 H (70-110) mg/dL Iron (65-175) UG/DL % Saturation (15.00-50.00) Transferrin (204.0-354.0) mg/dL Ferritin (22.0-322.0) ng/mL Albumin (3.5-5.0) g/dL 08/18/24 08/18/24 08/18/24 Range/Units 05:26 06:11 07:54 WBC (3.8-10.6) k/uL RBC (4.30-5.90) m/uL Hgb (13.0-17.5) gm/dL Hct (39.0-53.0) % Sodium 133 L (137-145) mmol/L BUN 116 H* (9-20) mg/dL Creatinine 2.40 H (0.66-1.25) mg/dL Glucose 169 H (74-99) mg/dL POC Glucose (mg/dL) 209 H 175 H (70-110) mg/dL Iron (65-175) UG/DL % Saturation (15.00-50.00) Transferrin (204.0-354.0) mg/dL Ferritin (22.0-322.0) ng/mL Albumin (3.5-5.0) g/dL 08/18/24 08/18/24 Range/Units 08:57 10:00 WBC (3.8-10.6) k/uL RBC (4.30-5.90) m/uL Hgb (13.0-17.5) gm/dL Hct (39.0-53.0) % Sodium (137-145) mmol/L BUN (9-20) mg/dL Creatinine (0.66-1.25) mg/dL Glucose (74-99) mg/dL POC Glucose (mg/dL) 214 H 279 H (70-110) mg/dL Iron (65-175) UG/DL % Saturation (15.00-50.00) Transferrin (204.0-354.0) mg/dL Ferritin (22.0-322.0) ng/mL Albumin (3.5-5.0) g/dL Assessment and Plan Plan: Assessment: 1. Acute kidney injury secondary to ATN secondary to severe sepsis. Renal function worse with creatinine 2.4 today. No hydronephrosis noted on imaging. UA benign. BUN disproportionately elevated partially due to steroids. Hemoglobin 7.3. Improved with diuresis. Questionable GI bleed. 2. Chronic kidney disease stage IIIa with baseline creatinine 1.2-1.4 secondary to nephrosclerosis. 3. Acute on chronic diastolic CHF. 4. Volume overload. 5. Metabolic acidosis secondary to acute kidney injury. Improved. On oral bicarb. 6. Recent Influenza A pneumonia status post Tamiflu. 7. Hypervolemic hyponatremia. Stable. 8. Acute blood loss anemia with concern for GI bleed status post blood transfusions this admission. Plan: Transition to oral Lasix 40 mg twice daily. IV iron today. Avoid nephrotoxins. Wean FiO2. Potential discharge to select specialty today.
[2024-08-18] MEDS: INSULIN GLARGINE (LANTUS) 100 UNIT/ML SYR SQ SCH ×2 (10:19→20:40)
[2024-08-18] MEDS: SODIUM FERRIC GLUCONAT-SUCROSE 125 MG in SODIUM CHLORIDE 0.9% 100 ML IVPB ONE (11:20)
[2024-08-18 11:54] LABS: Glucose,Whole Blood 391 mg/dL (70-110)
[2024-08-18] MEDS: INSULIN LISPRO (HumaLOG) 100 UNIT/ML 10 mL VL SQ SCH ×2 (11:56→16:25)
--- NOTE | 2024-08-18 14:54 | P.PN ---
Subjective Progress Note Date: 08/18/24 Principal diagnosis: Reason for follow-up is pneumonia Patient is a 64-year-old male with a past medical history significant for diabetes mellitus hypertension hyperlipidemia pneumonia atrial fibrillation currently everyday smoker presenting to the hospital for evaluation of increasing shortness of breath patient has been diagnosed with multifocal pneumonia prompting this consultation. On today's evaluation that is 08/18/2024, Patient is afebrile this morning patie nt denies having any chest pain breathing slightly comfortably and did have occasional cough, the patient is currently on 10 L high flow nasal cannula oxygen, patient denies any abdominal pain no diarrhea no nausea no vomiting. Patient white count is 22.4 creatinine is 2.40 CRP less than 0.5 Pro-Shadi 0.43 blood culture negative Objective - Vital Signs Vital signs: Vital Signs Temp 96.4 F L 08/18/24 12:00 Pulse 78 08/18/24 12:00 Resp 29 H 08/18/24 12:00 BP 123/68 08/18/24 12:00 Pulse Ox 90 L 08/18/24 12:00 FiO2 50 08/18/24 05:00 Intake & Output 08/17/24 08/18/24 08/18/24 18:59 06:59 18:59 Intake Total 941.162 703.603 437.498 Output Total 1600 1250 700 Balance -658.838 -546.397 -262.502 Weight 100.5 kg 100.9 kg Intake: IV 240 110 60 .9 140 110 60 Cefepime 2 gm In Sodium 100 Chloride 0.9% 100 ml @ 25 mls/hr IVPB Q12H [facility] Rx# :[id number] Intake, IV Titration 101.162 53.603 127.498 Amount Insulin Regular 100 unit 101.162 53.603 27.498 In Sodium Chloride 0.9% 100 ml @ Titrate IV .Q0M [facility] Rx#:[id number] Sodium Ferric Gluconat- 100 Sucrose 125 mg In Sodium Chloride 0.9% 100 ml @ 100 mls/hr IVPB ONCE ONE Rx#:[id number] Oral 600 540 250 Output: Urine 1600 1250 700 Other: Voiding Method External Catheter External Catheter External Catheter - Exam GENERAL DESCRIPTION: An elderly male lying in bed in no distress RESPIRATORY SYSTEM: Unlabored breathing , coarse breath sounds bilaterally HEART: S1 S2 regular rate and rhythm , ABDOMEN: Soft , no tenderness EXTREMITIES: 2+ edema feet - Labs CBC & Chem 7: 08/18/24 05:26 08/18/24 05:26 Labs: Abnormal Lab Results - Last 24 Hours (Table) 08/16/24 08/17/24 08/17/24 Range/Units 05:48 14:35 16:22 WBC (3.8-10.6) k/uL RBC (4.30-5.90) m/uL Hgb (13.0-17.5) gm/dL Hct (39.0-53.0) % Sodium (137-145) mmol/L BUN (9-20) mg/dL Creatinine (0.66-1.25) mg/dL Glucose (74-99) mg/dL POC Glucose (mg/dL) 298 H 217 H (70-110) mg/dL Iron 34 L (65-175) UG/DL % Saturation 14.23 L (15.00-50.00) Transferrin 171.0 L (204.0-354.0) mg/dL Ferritin 1164.0 H (22.0-322.0) ng/mL 08/17/24 08/17/24 08/17/24 Range/Units 17:34 18:29 20:32 WBC (3.8-10.6) k/uL RBC (4.30-5.90) m/uL Hgb (13.0-17.5) gm/dL Hct (39.0-53.0) % Sodium (137-145) mmol/L BUN (9-20) mg/dL Creatinine (0.66-1.25) mg/dL Glucose (74-99) mg/dL POC Glucose (mg/dL) 157 H 139 H 220 H (70-110) mg/dL Iron (65-175) UG/DL % Saturation (15.00-50.00) Transferrin (204.0-354.0) mg/dL Ferritin (22.0-322.0) ng/mL 08/17/24 08/17/24 08/17/24 Range/Units 21:03 22:04 23:10 WBC (3.8-10.6) k/uL RBC (4.30-5.90) m/uL Hgb (13.0-17.5) gm/dL Hct (39.0-53.0) % Sodium (137-145) mmol/L BUN (9-20) mg/dL Creatinine (0.66-1.25) mg/dL Glucose (74-99) mg/dL POC Glucose (mg/dL) 376 H 243 H 213 H (70-110) mg/dL Iron (65-175) UG/DL % Saturation (15.00-50.00) Transferrin (204.0-354.0) mg/dL Ferritin (22.0-322.0) ng/mL 08/18/24 08/18/24 08/18/24 Range/Units 00:29 01:09 04:11 WBC (3.8-10.6) k/uL RBC (4.30-5.90) m/uL Hgb (13.0-17.5) gm/dL Hct (39.0-53.0) % Sodium (137-145) mmol/L BUN (9-20) mg/dL Creatinine (0.66-1.25) mg/dL Glucose (74-99) mg/dL POC Glucose (mg/dL) 156 H 143 H 177 H (70-110) mg/dL Iron (65-175) UG/DL % Saturation (15.00-50.00) Transferrin (204.0-354.0) mg/dL Ferritin (22.0-322.0) ng/mL 08/18/24 08/18/24 08/18/24 Range/Units 05:05 05:26 05:26 WBC 22.4 H (3.8-10.6) k/uL RBC 2.38 L (4.30-5.90) m/uL Hgb 7.3 L (13.0-17.5) gm/dL Hct 21.8 L (39.0-53.0) % Sodium 133 L (137-145) mmol/L BUN 116 H* (9-20) mg/dL Creatinine 2.40 H (0.66-1.25) mg/dL Glucose 169 H (74-99) mg/dL POC Glucose (mg/dL) 236 H (70-110) mg/dL Iron (65-175) UG/DL % Saturation (15.00-50.00) Transferrin (204.0-354.0) mg/dL Ferritin (22.0-322.0) ng/mL 08/18/24 08/18/24 08/18/24 Range/Units 06:11 07:54 08:57 WBC (3.8-10.6) k/uL RBC (4.30-5.90) m/uL Hgb (13.0-17.5) gm/dL Hct (39.0-53.0) % Sodium (137-145) mmol/L BUN (9-20) mg/dL Creatinine (0.66-1.25) mg/dL Glucose (74-99) mg/dL POC Glucose (mg/dL) 209 H 175 H 214 H (70-110) mg/dL Iron (65-175) UG/DL % Saturation (15.00-50.00) Transferrin (204.0-354.0) mg/dL Ferritin (22.0-322.0) ng/mL 08/18/24 08/18/24 Range/Units 10:00 11:53 WBC (3.8-10.6) k/uL RBC (4.30-5.90) m/uL Hgb (13.0-17.5) gm/dL Hct (39.0-53.0) % Sodium (137-145) mmol/L BUN (9-20) mg/dL Creatinine (0.66-1.25) mg/dL Glucose (74-99) mg/dL POC Glucose (mg/dL) 279 H 391 H (70-110) mg/dL Iron (65-175) UG/DL % Saturation (15.00-50.00) Transferrin (204.0-354.0) mg/dL Ferritin (22.0-322.0) ng/mL Assessment and Plan (1) Leukocytosis Current Visit: Yes Status: Acute Code(s): D72.829 - ELEVATED WHITE BLOOD CELL COUNT, UNSPECIFIED SNOMED Code(s): 938386041 (2) Bilateral pneumonia Current Visit: Yes Status: Acute Code(s): J18.9 - PNEUMONIA, UNSPECIFIED ORGANISM SNOMED Code(s): 974675548 Plan: 1patient presented hospital with increasing shortness of breath and chest pain which is likely multifactorial in this patient who did have evidence of PE on the CT there is also evidence of multifocal pneumonia with elevated white count and recently acute influenza A will need to cover for resistant gram-positive as well as gram-negative pathogen for post influenza pneumonia 2-blood culture has been negative no sputum has been collected, histo serology came back negative 3-patient has received adequate by therapy for pneumonia and will monitor closely off antibiotic therapy 4leukocytosis more likely steroid related plus minus oral pharyngeal candidiasis, will add Diflucan and see clinical response repeat CBC with a.m. lab Dictation was produced using [employer] dictation software. please excuse any grammatical, word or spelling errors. Time with Patient: Less than 30
[2024-08-18] MEDS: FLUCONAZOLE 100 MG TAB PO ONE (15:38)
[2024-08-18] MEDS ORDERED: FUROSEMIDE 40 MG TAB PO SCH (16:00)
[2024-08-18 16:07] LABS: Glucose,Whole Blood 405 mg/dL (70-110)
[2024-08-18 20:19] LABS: Glucose,Whole Blood 270 mg/dL (70-110)
[2024-08-18] MEDS: FUROSEMIDE 10 MG/ML 4 ML VIAL IV SCH (20:40)
[2024-08-19 02:58] LABS: Glucose,Whole Blood 307 mg/dL (70-110)
[2024-08-19 06:07] LABS: Basophils % (A) 0 %; Eosinophils % (A) 0 %; HCT 21.6 % (39.0-53.0); Hypochromasia Slight; Lymphocytes # (A) 0.3 k/uL (1.0-4.8); Lymphocytes % (A) 1 %; MCH 30.3 pg (25.0-35.0); MCHC 32.3 g/dL (31.0-37.0); MCV 93.9 fL (80.0-100.0); Mean Platelet Volume 10.3; Monocytes # (A) 0.7 k/uL (0-1.0); Monocytes % (A) 3 %; Neutrophils # (A) 25.3 k/uL (1.3-7.7); Neutrophils % (A) 95 %; Platelet Count 216 k/uL (150-450); RBC 2.29 m/uL (4.30-5.90); RDW 13.6 % (11.5-15.5); WBC 26.5 k/uL (3.8-10.6)
[2024-08-19 06:39] LABS: Glucose,Whole Blood 241 mg/dL (70-110)
--- NOTE | 2024-08-19 07:13 | XR ---
EXAMINATION TYPE: XR chest 1V portable DATE OF EXAM: 08/19/2024 5:13 AM COMPARISON: Multiple radiographs, with the most recent on 08/18/2024 TECHNIQUE: XR chest 1V portable Portable AP radiograph of the chest. CLINICAL INDICATION:Male, 64 years old with history of Respiratory Failure; FINDINGS: Lungs/Pleura: Blunting of the bilateral costophrenic angles. Similar bibasilar airspace opacities. No pneumothorax. Heart/mediastinum: Cardiomediastinal silhouette is enlarged and stable. Atherosclerotic calcificatio ns are seen in the aorta. Musculoskeletal: No acute osseous pathology. IMPRESSION: Overall similar examination with cardiomegaly and bibasilar infiltrates and/or edema. Small bilateral pleural effusions. [facility], , 08/19/2024 7:11 AM
[2024-08-19] MEDS: FLUCONAZOLE 100 MG TAB PO SCH (09:03)
[2024-08-19] MEDS: INSULIN GLARGINE (LANTUS) 100 UNIT/ML SYR SQ SCH (09:03)
[2024-08-19 09:21] LABS: African American GFR (CKD) 32 (>60 ml/min/1.73 sqM); Anion Gap 5 mmol/L; Calcium 8.4 mg/dL (8.4-10.2); Carbon Dioxide 28 mmol/L (22-30); Chloride 99 mmol/L (98-107); Glucose 206 mg/dL (74-99); Magnesium 2.8 mg/dL (1.6-2.3); Non-African American GFR(CKD) 28 (>60 ml/min/1.73 sqM); Potassium 4.2 mmol/L (3.5-5.1); Sodium 132 mmol/L (137-145)
[2024-08-19 09:23] LABS: Blood Urea Nitrogen 118 mg/dL (9-20)
--- NOTE | 2024-08-19 09:30 | P.PN ---
Subjective Patient is a 64-year-old male with a PMH of atrial fibrillation on Eliquis, COPD on 2 L home oxygen, apo-zlahxon-yofysoetw diabetes mellitus, hyperlipidemia, hypertension presenting with shortness of breath. Patient was previously admitted here for acute hypoxic respiratory failure secondary to influenza pneumonia and was discharged on 2 L of home oxygen. Patient states he has been feeling short of breath while at rest. He reports that since being discharged the home oxygen has not been sufficient. He states that he had to keep increasing his oxygen. Patient says shortness of breath is slightly relieved when he is laying down. Denies any orthopnea or PND. Patient endorses a nonproductive cough that is chronic in nature, but says it has been getting worse. Patient admits to having fever, chills. Patient also admits to having non-radiating, pressure-like chest pain over the last few days. Chest pain is not related to exertion and he had no alleviating or aggravating factors. Patient denies any headache, vision changes, nausea, vomiting, diarrhea, abdominal pain, urinary symptoms. EKG independently interpreted displaying sinus rhythm with left bundle branch block that has been seen on prior EKG, rate 65 bpm, QTc 451 ms CXR independently interpreted displaying bilateral multifocal airspace opacities Chest CTA displaying acute segmental and subsegmental pulmonary emboli within the right and middle lower lobes, no saddle embolus, no RV strain, chronic interstitial loading disease Venous Doppler B/L LE displaying no evidence of acute DVT Troponin 0.049, 0.055, proBNP 8810, D-dimer 4.87, WBC 22.6, Hgb 11.0, HCT 35.2, MCV 93.7, platelet 322, PT 11.8, INR 1.1, APTT 28, sodium 133, potassium 4.2, CO2 24, BUN 30, creatinine 1.27, glucose 135 VBG pH 7.52, pCO2 32 T98.2 F, NH 80, RR 26, BP 163/77, O2 sat 90% on BiPAP with FiO2 of 100% August 05: Overflow the ER. Up in the bed. Short of breath. Patient was on BiP AP overnight. This morning on 15 L high flow nasal cannula. Decreased appetite. Has got a cough. Some wheezing. Some sputum production. Decreased appetite. Patient is on IV heparin. Also on IV cefepime. Pulmonary following August 06: Patient did confirm that because Eliquis is very expensive patient was not taking it properly did and take it sparingly at home. Explains patient's PE. Started on Eliquis today by cardiology. IV heparin discontinued. Getting easily short of breath. Requiring BiPAP.. Some cough. Oral intake fair. On IV cefepime and vancomycin. ID following. Also on IV Lasix. Due to worsening renal function will DC vancomycin August 07: Saw this afternoon. On BiPAP. 60%. Ensure ordered. All blood work ordered by pulmonary including fungal. Patient currently on IV cefepime and Levaquin. IV Solu-Medrol. Remain short of breath. Tired. Being followed by pulmonary and ID. Chest x-ray film personally reviewed by me-showing pulm edema bilateral infiltrates especially at the bases. Renal ultrasound nonspecific. UA showing protein 1+. August 08: Remain short of breath. Sitting up in bed. Not able to come off the BiPAP. Remains on IV cefepime. Accu-Cheks running high. Put on insulin drip. On IV Solu-Medrol. Oral intake fair. August 09: Patient remains short of breath. Unable to get off BiPAP. FiO2 increased to 70%. 04/30. Per Dr. Goode: Patient be moved to the ICU. Poor oral intake. Remains on insulin drip. IV Solu-Medrol. Eliquis. IV cefepime and Levaquin. Tired. Sitting up in bed leaning forward short of breath. Chest x-ray film personally reviewed by me: Scattered bilateral infiltrates August 10: ICU. Remains on BiPAP. Decreased oral intake. Sitting up. Short of breath. On IV cefepime. Insulin drip. IV Solu-Medrol. DuoNeb Q4. Rather tired. Also yesterday evening at epistaxis. Nasal packing. August 11: ICU. Mostly been on BiPAP. High flow nasal cannula. Decreased oral intake. Sitting up leaning forward. Remains on IV cefepime or Levaquin insulin drip. A bit tired. Patient has very poor oral intake. Per sandwich peddler patient will IV Lasix. Note worsening renal function-cut back to Lasix once a day. Given blood pressure running lower side. DC Aldactone and DC amlodipine. August 12: ICU. Patient was taken off BiPAP this morning. Decreased to high flow nasal cannula 10 L. at the bedside. Encourage oral intake. Chopped diet. Per sandwich peddler nephrology patient to continue on IV Lasix. Blood pressure better after stopping amlodipine and Aldactone yesterday. Encourage oral intake. Incentive spirometry. IV cefepime, Levaquin, I terconazole per ID. August 13: ICU. Yesterday patient was nasal cannula. Overnight repeat put back on BiPAP. Patient did drop his hemoglobin further. Down to 6.2. [place] to be from epistaxis. Given a unit of blood. Further increase in BUN/creatinine. Remains on IV Lasix. Ordered Kerlix to both the lower extremities. Had a good portion of his lunch today. August 14: ICU. Patient seen this morning. 15 L nasal cannula. Reclining in bed. Short of breath. [place] wrap lower extremity. Patient remains on IV cefepime, IV Lasix 40 mg every 12, insulin drip, IV Solu-Medrol DuoNeb Q4. Did not eat breakfast but had about 100% of his lunch. 08/15/2024, resume the care of the patient today. Patient seen and examined in the ICU. His not tolerating his BiPAP mask more than 1 hour, currently his mildly/moderately tachypneic on 15 L oxygen via nonrebreather. He has apparent swelling of both arms and legs, sitting up in chair feels tired denies chest pain. Patient also on insulin drip at 7 units/h. 08/16 Patient looks similar to yesterday although reports some improvement in his breathing. He used the BiPAP last night which might contributed to his feeling of improvement. He still on IV Lasix 40 mg lowered the dose to twice daily and IV Solu-Medrol 40 mg lowered the dose to 40 mg twice daily. He has more than 1.5 L out since yesterday. He is still on fluid restriction and feels thirsty. His WBC is 20,000 compared to 19.9 yesterday while he is on steroids. Hemoglobin stable at 7.3, creatinine stable at 2.2. Also remains on IV cefepime and itraconazole for possible pneumonia 07/20 Patient improving slowly and gradually Still sitting in chair with mild tachypnea and fluid overload He remains on IV Lasix 40 mg twice daily and IV Solu-Medrol 40 mg twice daily Also he is on IV cefepime and itraconazole WBC is 21,000 today, hemoglobin up to 7.5 and creatinine trended down to 1.8. 07/21 He is slightly on the gradually improving Oxygen requirements improved from 15 L/min down to 9 L/min Hist still mildly tachypneic/dyspneic, and bilateral leg swelling He is not drinking water, patient counseled about fluid restriction Patient currently on IV Lasix 40 mg twice daily and. Sodium bicarb was added WBC 22,000, creatinine slightly up at 2.4 07/22 Patient improving slowly and gradually He is on 9 L oxygen via nasal cannula since yesterday and looks stable and proven. He is kept on IV Lasix He is on IV cefepime and fluconazole and Solu-Medrol He has leukocytosis partly due to his infection and steroid effect Patient is to be downgraded to select unit in 3 S. Objective - Vital Signs Vital signs: Vital Signs Temp 98.2 F 08/19/24 00:00 Pulse 61 08/19/24 07:00 Resp 13 08/19/24 07:00 BP 128/59 08/19/24 07:00 Pulse Ox 96 08/19/24 07:00 FiO2 50 08/18/24 05:00 Intake & Output 08/18/24 08/19/24 08/19/24 18:59 06:59 18:59 Intake Total 997.498 660 10 Output Total 1200 650 200 Balance -202.502 10 -190 Intake: IV 120 120 10 .9 120 120 10 Intake, IV Titration 127.498 Amount Insulin Regular 100 unit 27.498 In Sodium Chloride 0.9% 100 ml @ Titrate IV .Q0M [facility] Rx#:[id number] Sodium Ferric Gluconat- 100 Sucrose 125 mg In Sodium Chloride 0.9% 100 ml @ 100 mls/hr IVPB ONCE ONE Rx#:[id number] Oral 750 540 Output: Urine 1200 650 200 Other: Voiding Method External Catheter External Catheter - Exam GENERAL: The patient is alert and oriented x3, not in any acute distress. Well developed, well nourished. HEENT: Pupils are round and equally reacting to light. EOMI. No scleral icterus. No conjunctival pallor. Normocephalic, atraumatic. No pharyngeal erythema. No t hyromegaly. CARDIOVASCULAR: S1 and S2 present. No murmurs, rubs, or gallops. -PULMONARY: Chest is clear to auscultation, no wheezing , n bilateral basal crackles. ABDOMEN: Soft, nontender, nondistended, normoactive bowel sounds. No palpable organomegaly. MUSCULOSKELETAL: No joint swelling or deformity. -EXTREMITIES: No cyanosis, clubbing, bilateral arm and leg pitting leg edema NEUROLOGICAL: Gross neurological examination did not reveal any focal deficits. SKIN: No rashes. no petechiae. - Labs CBC & Chem 7: 08/19/24 05:28 08/19/24 05:28 Labs: Abnormal Lab Results - Last 24 Hours (Table) 08/18/24 08/18/24 08/18/24 Range/Units 10:00 11:53 16:05 WBC (3.8-10.6) k/uL RBC (4.30-5.90) m/uL Hgb (13.0-17.5) gm/dL Hct (39.0-53.0) % Neutrophils # (1.3-7.7) k/uL Lymphocytes # (1.0-4.8) k/uL Sodium (137-145) mmol/L BUN (9-20) mg/dL Creatinine (0.66-1.25) mg/dL Glucose (74-99) mg/dL POC Glucose (mg/dL) 279 H 391 H 405 H (70-110) mg/dL Hemoglobin A1c (<=6.0) % Magnesium (1.6-2.3) mg/dL 08/18/24 08/19/24 08/19/24 Range/Units 20:18 02:57 05:28 WBC (3.8-10.6) k/uL RBC (4.30-5.90) m/uL Hgb (13.0-17.5) gm/dL Hct (39.0-53.0) % Neutrophils # (1.3-7.7) k/uL Lymphocytes # (1.0-4.8) k/uL Sodium (137-145) mmol/L BUN (9-20) mg/dL Creatinine (0.66-1.25) mg/dL Glucose (74-99) mg/dL POC Glucose (mg/dL) 270 H 307 H (70-110) mg/dL Hemoglobin A1c 7.2 H (<=6.0) % Magnesium (1.6-2.3) mg/dL 08/19/24 08/19/24 08/19/24 Range/Units 05:28 05:28 06:38 WBC 26.5 H (3.8-10.6) k/uL RBC 2.29 L (4.30-5.90) m/uL Hgb 7.0 L (13.0-17.5) gm/dL Hct 21.6 L (39.0-53.0) % Neutrophils # 25.3 H (1.3-7.7) k/uL Lymphocytes # 0.3 L (1.0-4.8) k/uL Sodium 132 L (137-145) mmol/L BUN 118 H* (9-20) mg/dL Creatinine 2.35 H (0.66-1.25) mg/dL Glucose 206 H (74-99) mg/dL POC Glucose (mg/dL) 241 H (70-110) mg/dL Hemoglobin A1c (<=6.0) % Magnesium 2.8 H (1.6-2.3) mg/dL Assessment and Plan Assessment: #. Acute pulmonary embolism, non-massive [segmental and subsegmental within the right middle and lower lobes. No RV strain Initially IV heparin, currently on o Eliquis #. Sepsis likely secondary to -viral pneumonia. Secondary bacterial component IV cefepime. Levaquin discontinued on August 12..-also has been on itraconazole started on the August 07 ID and pulmonary following #. Acute hypoxic respiratory failure, secondary to above: Slow to respond Intermittently BiPAP, currently 15 L nasal cannula #. Acute COPD exacerbation, in a prior smoker: Some improvement DuoNeb Q4. IV Solu-Medrol 60 mg Q6. Nebulized Pulmicort #. Acute on chronic heart failure with reduced ejection fraction (EF 45 to 50%): Some improvement IV Lasix 40 mg every 12. Aldactone-discontinued. #. Chronic hypoxic respiratory failure from underlying COPD, 2 L home O2 -Acute kidney injury, likely ATN multifactorial, worsening Admission creatinine 1.27. #. Eii-vlfjrkv-ymshkvgci type 2 diabetes, uncontrolled with hyperglycemia secondary steroids: Not improving Insulin subcu sliding scale. Stop Levemir. Continues on insulin drip Accu-Cheks ACHS - chronic kidney disease stage III from nephrosclerosis and diabetic nephropathy [creatinine 1.63 in October 2022] Renal ultrasound.: Suboptimal study. No corticomedullary comment. UA protein 1+ -Recent influenza type A #. Essential hypertension- Toprol-XL. Other antihypertensives have been held #. Hyperlipidemia Lipitor -Full code On IV Lasix., IV cefepime, Itroconazole, IV Solu-Medrol 60 mg. Had a good lunch. IV insulin
--- NOTE | 2024-08-19 09:40 | P.PN ---
Subjective Patient is seen in follow-up for acute kidney injury on chronic kidney disease. Renal function stable. Nonoliguric. On 9 L high flow nasal cannula. Sitting up in chair. Vital signs are stable. General: No acute distress. HEENT: Head exam is unremarkable. On high flow nasal cannula. LUNGS: Scattered rhonchi. HEART: Rate and Rhythm are regular. ABDOMEN: Nontender. EXTREMITITES: 1+ edema. Objective - Vital Signs Vital signs: Vital Signs Temp 96.5 F L 08/19/24 08:00 Pulse 68 08/19/24 09:00 Resp 22 08/19/24 09:00 BP 103/49 08/19/24 09:00 Pulse Ox 97 08/19/24 09:00 FiO2 9 08/19/24 08:00 Intake & Output 08/18/24 08/19/24 08/19/24 18:59 06:59 18:59 Intake Total 997.498 660 10 Output Total 1200 650 200 Balance -202.502 10 -190 Intake: IV 120 120 10 .9 120 120 10 Intake, IV Titration 127.498 Amount Insulin Regular 100 unit 27.498 In Sodium Chloride 0.9% 100 ml @ Titrate IV .Q0M [facility] Rx#:[id number] Sodium Ferric Gluconat- 100 Sucrose 125 mg In Sodium Chloride 0.9% 100 ml @ 100 mls/hr IVPB ONCE ONE Rx#:[id number] Oral 750 540 Output: Urine 1200 650 200 Other: Voiding Method External Catheter External Catheter - Labs CBC & Chem 7: 08/19/24 05:28 08/19/24 05:28 Labs: Abnormal Lab Results - Last 24 Hours (Table) 08/18/24 08/18/24 08/18/24 Range/Units 10:00 11:53 16:05 WBC (3.8-10.6) k/uL RBC (4.30-5.90) m/uL Hgb (13.0-17.5) gm/dL Hct (39.0-53.0) % Neutrophils # (1.3-7.7) k/uL Lymphocytes # (1.0-4.8) k/uL Sodium (137-145) mmol/L BUN (9-20) mg/dL Creatinine (0.66-1.25) mg/dL Glucose (74-99) mg/dL POC Glucose (mg/dL) 279 H 391 H 405 H (70-110) mg/dL Hemoglobin A1c (<=6.0) % Magnesium (1.6-2.3) mg/dL 08/18/24 08/19/24 08/19/24 Range/Units 20:18 02:57 05:28 WBC (3.8-10.6) k/uL RBC (4.30-5.90) m/uL Hgb (13.0-17.5) gm/dL Hct (39.0-53.0) % Neutrophils # (1.3-7.7) k/uL Lymphocytes # (1.0-4.8) k/uL Sodium (137-145) mmol/L BUN (9-20) mg/dL Creatinine (0.66-1.25) mg/dL Glucose (74-99) mg/dL POC Glucose (mg/dL) 270 H 307 H (70-110) mg/dL Hemoglobin A1c 7.2 H (<=6.0) % Magnesium (1.6-2.3) mg/dL 08/19/24 08/19/24 08/19/24 Range/Units 05:28 05:28 06:38 WBC 26.5 H (3.8-10.6) k/uL RBC 2.29 L (4.30-5.90) m/uL Hgb 7.0 L (13.0-17.5) gm/dL Hct 21.6 L (39.0-53.0) % Neutrophils # 25.3 H (1.3-7.7) k/uL Lymphocytes # 0.3 L (1.0-4.8) k/uL Sodium 132 L (137-145) mmol/L BUN 118 H* (9-20) mg/dL Creatinine 2.35 H (0.66-1.25) mg/dL Glucose 206 H (74-99) mg/dL POC Glucose (mg/dL) 241 H (70-110) mg/dL Hemoglobin A1c (<=6.0) % Magnesium 2.8 H (1.6-2.3) mg/dL Assessment and Plan Plan: Assessment: 1. Acute kidney injury secondary to ATN secondary to severe sepsis. Renal function stable with creatinine 2.35 today. No hydronephrosis noted on imaging. UA benign. BUN disproportionately elevated partially due to steroids. Hemoglobin 7.0. Improved with diuresis. Questionable GI bleed. 2. Chronic kidney disease stage IIIa with baseline creatinine 1.2-1.4 secondary to nephrosclerosis. 3. Acute on chronic diastolic CHF. 4. Volume overload. 5. Metabolic acidosis secondary to acute kidney injury. Improved. On oral bicarb. 6. Recent Influenza A pneumonia status post Tamiflu. 7. Hypervolemic hyponatremia. Stable. 8. Acute blood loss anemia with concern for GI bleed status post blood transfusions this admission. Plan: Maintain IV Lasix. Can be transitioned to oral diuretics in the next 2 to 3 days. Repeat IV iron today. Add Aranesp. Avoid nephrotoxins. Wean FiO2. Potential discharge to select specialty today.
--- NOTE | 2024-08-19 10:15 | P.PN ---
Subjective Progress Note Date: 08/19/24 Principal diagnosis: Hospital course: Acute on chronic hypoxic respiratory failure, multifactorial Patient is a 64-year-old male with past medical history significant for atrial fibrillation, diabetes mellitus, CKD stage III, hypertension, hyperlipidemia, tobacco smoker. Of note, recently had a prolonged hospitalization 07/19/2024 through 07/31/2024. Treated for combination of influenza A, pneumonia, CHF. Completed course of antibiotics and Tamiflu. At this time, did require noninvasive BiPAP, eventually discharged on home O2. Returns with a chief complaint of shortness of breath progressing over the last 2 to 3 days. Also, reports sudden onset substernal chest pain that developed the night prior and has been persistent. On arrival to the ED, found to be in some respiratory distress, and placed on BiPAP. Workup in the emergency department including a chest x-ray showing multifocal infiltrates concerning for pneumonia or pulmonary edema. D-dimer was elevated in setting CT angio protocol which was positive for segmental and subsegmental right middle lobe and right lower lobe pulmonary emboli. No saddle pulmonary embolus. Pulmonary artery mildly enlarged. Preserved RV to LV ratio. There were diffuse coarse reticular infiltrates, as well as, groundglass lung attenuation, cystic changes, with concerns for interstitial lung disease. Patient does take Eliquis for his history of atrial fibrillation. Does state he has missed some doses lately. CBC: WBC count 22.6, hemoglobin 11, platelets 322. CMP: Sodium 133, potassium 4.2, chloride 101, serum bicarb 24, BUN 30, creatinine 1.27, glucose 135. Lactic 1.5. VBG with a pH of 7.5 and pCO2 of 32. EKG: Sinus rhythm, rate 65 bpm, left bundle branch block, not acute. Elevated serial troponins 0.049 and 0.055 respectively. NT proBNP elevated 8807. Patient is currently being evaluated in the emergency department. He is alert and some moderate respiratory distress. On BiPAP with settings 12/5 and FiO2 60%. Tachypneic, breathing around 40 breaths/min. Endorses progressive worsening difficulty in breathing over last couple days. He has tried to increase his supplemental oxygen at home without any relief. Denies previous history of DVT or PE. Associated nonproductive cough. Denies sputum production or hemoptysis. Substernal nonradiating chest pain persist. Denies any fevers or chills. Denies heart palpitations or syncopal events. Denies swelling in the lower extremities. Heart rhythm is normal sinus on bedside monitor. Blood pressure has been normotensive, did receive 2 L of crystalloid fluid bolus earlier. Not requiring any vasopressors. Normal saline is infusing at 150 mL/h. IV heparin infusing per protocol 08/06/2024, the patient is being seen for a follow-up. The patient is alternating between BiPAP at a pressure of 12/5 with an FiO2 of 60% and 15 L of oxygen by nasal cannula. He is getting slightly anxious and the patient is being provided Xanax accordingly. Fluid balance is -1.1 L over the past 24 hours. Limited echocardiogram was also done and it showed preserved LV function with an EF of around 55 to 60%. Valvular functions could not be accurately assessed as the patient's study was technically difficult study. There was however RV dilatation. Unable to estimate RV pressures. The electrolytes from today showed a creatinine of 1.5 with a BUN of 35. Bicarb is at 21. Sodium is at 132. The patient remains on DuoNeb updrafts. The patient remains on a combination of cefepime and vancomycin. The patient was taken off the IV heparin and the patient was started on anticoagulation with Eliquis. Remains on IV Solu-Medrol 60 mg every 6 hours. Remains on Aldactone. Remains on IV Lasix 40 mg every 12 hours. On today's evaluation of 08/07/2024, the patient is overall condition is essentially unchanged. Continues to be hypoxic, continues to be on BiPAP and the patient remains at a pressure of 12/5 with an FiO2 of 60%. Continues to have crackles in lung base bilaterally. White cell count remains elevated at 20 with a hemoglobin 9.2. Very much BiPAP dependent as the patient desaturates once taken off the BiPAP. BUN is 44 with a platelet of 1.5. Sodium levels at 134 and a potassium level is at 3.4. Remains on DuoNeb updrafts. Remains on IV Lasix 40 mg every 12 hours. Remains on Aldactone. Remains on bronchodilators. Remains on steroids. Empiric antibiotic coverage with IV cefepime. Reviewed the CAT scan again and there is some chronic interstitial changes and the patient has diffuse infiltrates with areas of groundglass. Consider acute interstitial pneumonias. Consider fungal pneumonias. On today's evaluation of 08/08/2024, the patient is feeling slightly better compared to yesterday. The patient is off the BiPAP and the patient is currently on 15 L of oxygen by nasal cannula. Remains on bronchodilators. Remains on IV Solu-Medrol. Remains on IV Lasix. Antibiotic coverage including combination of cefepime, Levaquin orally and itraconazole orally. Fungal antibodies are still pending. Meanwhile, rheumatologic profile showed a negative rheumatoid factor and negative MARISA. Legionella urine antigen is still pending for now. Clinically however, the patient is feeling slightly improved compared to yesterday. His chest x-ray continues to show multifocal airspace disease more so in the right lung. Fluid balance has been negative. The patient's creatinine is currently at 1.6 with a BUN of 54 and a sodium levels at 133. I am going to taper the steroids. The white cell count is 18.2 with a hemoglobin of 9.2. On 08/09/2024, the patient is transferred to the intensive care unit for closer monitoring. As mentioned, the patient developed acute hypoxic respiratory fa ilure with diffuse bilateral pulmonary filtrates discussed earlier. The patient was able to tolerate Airvo, however, overnight, the patient developed epistaxis. Therefore was discontinued the patient was placed back on BiPAP and his current BiPAP is running at a pressure of 12 over 5 cm of water with an FiO2 of 80%. The patient seems to be quite dependent on the BiPAP. Unable to drop the FiO2 any further. Repeat chest x-ray was done and shows stable diffuse bilateral pulm infiltrates which remains essentially unchanged compared to yesterday. Clinically, the patient is awake and alert. He is reported to have some congested cough. No significant sputum production. No chest pain. No h emoptysis. Noted, over the past 48 hours, the patient was diuresed with IV Lasix. Nevertheless, we have not seen any improvement in the patient's oxygenation. The patient was negative fluid balance. His BNP today is at 68 with a creatinine of 1.7. Based on that, I stopped diuretics. Rest of the electrolytes are all within normal limits. White cell count of 21 with a hemoglobin 9.1 and a platelet count of 245. The patient remains on broad- spectrum antibiotics. The patient remains on IV cefepime, itraconazole and Levaquin. Fungal antibodies are still pending for now. MARISA and rheumatoid factor were both negative. Legionella urine antigen was also negative. The patient remains on anticoagulation and I am going to drop the Eliquis dose to 5 mg p.o. twice a day. I am not absolutely convinced that the patient has a pulmonary embolism. I reviewed the CAT scan of the chest and there could be potentially some subsegmental filling defects in the right, however, the overall contrast administration was essentially poor. The patient will be monitored very closely in the intensive care unit. On a separate note, the patient was started on insulin drip for blood sugar control. Patient was seen today on 08/10/2024, remains in the ICU, remains on fluid restrictions for low sodium of 128, he is on BiPAP 12//60%, patient is presenting this time very much similar to his last presentation few weeks ago. I am familiar with this patient, and on his last admission patient responded to treatment with mostly diuretics, and steroids. This time came back with a similar presentation, he is receiving diuretics, but has been on hold for the last 24 hours, and I recommended we go back on Lasix 40 mg IV push every 12 hours, patient is receiving Solu-Medrol at 60 mg IV push every 8 hours, he is also on Levaquin's, cefepime, and he is marginal at best. In addition to this the patient had non-ST elevation myocardial infarction and flu/influenza A back on 08/04. Blood cultures have been negative, patient has leukocytosis with WBC count of 21.7 hemoglobin is 7.9. Creatinine has been slightly rising 1.51 on admission which is about his baseline, today his creatinine is 1.97 with a BUN of 95. Legionella antigen has been negative MARISA screen has been negative rheumatoid factor is negative patient continues to complain of shortness of breath, intermittent cough, and wheezing. Patient was seen today on 08/11/2024, remains in the ICU, remains on BiPAP, patient is down on FiO2 to 50%, so he is on BiPAP 12//50%. Clinically the patient is feeling better breathing easier, remains on empiric antibiotics including cefepime and Levaquin remains on Lasix 40 mg every 12 hours remains on steroids, and today I have noticed probably minimal improvement in his chest x- ray findings. Hence we will continue the same and will make Lasix 40 mg twice daily instead of 40 mg daily. WBC count is 22.8 hemoglobin 7.4 electrolytes are normal BUN is 117 creatinine 2.11 Patient was seen today on 08/12/2024, patient is feeling better today, remains on BiPAP, however he is down to 40%, chest x-ray is showing definite improvement in comparison to previous x-rays of the chest. Patient remains on diuretics remains on antibiotics and remains on steroids, hence I have no plans to cut down on his diuretics at this point specially with his improvement clinically and improvement noted on the chest x-ray. As a matter fact I was able to discontinue BiPAP, and I placed the patient on a high flow nasal cannula 10 L and he is saturating anywhere between 97 to 99%. Creatinine is noted to be a bit higher today 2.28, his BUN is 125, his WBC count remains elevated at 18.1, hemoglobin is 7. Patient remains quite edematous, and he remains on diuretics in the form of Lasix and Aldactone. Patient was seen today on 08/13/2024, basically about the same, hemoglobin is low and the patient will receive 1 unit of packed RBCs today. Last night he had to go back on BiPAP, although he was tried on high flow nasal cannula throughout the day yesterday, Desaturating and kept getting anxious and agitated, then he was placed on BiPAP overnight, and he remains on BiPAP 12/5/50%. Hemoglobin today is 6.2, had some recommending at least a unit of packed RBCs. Chest x-ray continues to show bilateral interstitial edema/infiltrates. Patient remains on cefepime, IV fluids at KVO, remains on diuretics. Renal functioning is holding and not showing any significant change. Seen today on 08/14/2024, patient was on BiPAP at night, however earlier this morning he was placed down to 8 L high flow nasal cannula. Saturating at 93 to 95%. He was on BiPAP 12/5/50% last time. Remains on Lasix 40 mg IV push twice daily remains on Solu-Medrol 60 every 6 remains on cefepime. Patient has been on Sporanox. Some improvement today compared to the last few days, no chest x- ray was done, but the patient seems to be more comfortable on high flow nasal cannula compared to BiPAP. Continues to have leukocytosis but improving with WBC of 16.5 electrolytes are normal bicarb is normal BUN is 123 creatinine 2.33 blood sugar is 305. Patient was seen today on 08/15/2024, remains in the ICU, presently on 15 L high flow nasal cannula, he was on BiPAP 12/50% last night. Patient is also on insulin drip 7 units/h for elevated blood sugar, cefepime Lasix 40 mg twice daily and today I cut down his Solu-Medrol to 40 mg IV push every 12 hours. Chest x-ray continues to show edema/infiltrates at the base of his lungs, however overall his chest x-ray is much better now compared to his initial chest x-ray on admission. Clinical improvement but not quite ready to be transferred out of the ICU today, patient remains marginal in spite of the improvement noted. And he has very complex multiple medical issues being addressed. WBC count today is a bit higher at 19.9 hemoglobin is holding at 7.2 electrolytes are normal BUN is 118 creatinine 2.37 slightly higher. Patient remains in negative fluid balance. Patient was seen today on 08/16/2024, remains in the ICU, on 15 L high flow nasal cannula on insulin at 5 units/h remains on cefepime Lasix Sporanox and Solu- Medrol patient is feeling better today compared to baseline. He seems to be less edematous, less shortness of breath, chest x-ray continues show bilateral interstitial infiltrates/edema. His renal functioning is holding about the same, hence I have made no changes in his diuresis regimen today. And I have kept him on the same medications, patient is improving but very slowly. WBC count today is 20.6 hemoglobin 7.3 electrolytes are normal BUN is 118 creatinine 2.22 08/17/24: Patient seen and examined at bedside today. Patient denies any chest pain, shortness of breath, abdominal pain. He does express his wish to be out of bed and in the chair more frequently but mentions that he is unable to do so on his own. He reports feeling thirsty and wanting to drink more water but was counseled that he is on fluid restriction and is currently getting Lasix. He continues to be on 15L of oxygen via high flow nasal cannula. Chest x-ray done today shows mild cardiomegaly with right greater than left bilateral lower lung acute infiltrates, some improved aeration in the left lower lung noted. Vitals today show temperature 98.2, pulse 61, 32, BP 141/54. Labs today show creatinine 1.89, BUN 132, WBC 21.0, hemoglobin 7.5, sodium 134, bicarb 18, albumin 3.2. Patient continues to be on Solu-Medrol 40 mg IV every 12 hours and Lasix. He is also on cefepime and itraconazole. Patient wishes No code. Patient is on 0.9 normal saline at 10 mL/h and insulin at 2.6. 08/18/24: Patient evaluated at bedside.Patient continues to be in the ICU. He denies any acute complains. He is now on 9L of oxygen via high flow nasal cannula. Patient used BIPAP at 12/5/50% intermittently overnight. Chest X ray done today shows overall similar examination with cardiomegaly and bilateral lower lung infiltrates and/or edema. A midline IV access was obtained yesterday. Histo serologies were negative so Itraconazole was discontinued. Iron studies show Iron 34, TIBC 239, % saturation 14.23, Transferrrin 171, Ferritin 1164. Labs show CRP <0.5, WBC 22.4, hemoglobin 7.3, sodium 133, BUN 116, creatinine 2.4, glucose 169, procalcitonin 0.43. Patient continues to be on 0.9 normal saline at 10 mL/h and insulin drip. 08/19/24: Patient seen today in the ICU. He denies any acute complains. Patient is out of bed and in the chair beside his bed. Reports feeling better with La ctulose. He continues to be on 9L of oxygen via high flow nasal cannula. He did not use the BIPAP overnight. Chest Xray done today shows overall similar examination with cardiomegaly and bibasilar infiltrates and/or edema, small bilateral pleural effusions. Labs today show WBC 26.5, hemoglobin 7, sodium 132, BP 118, creatinine 2.35 magnesium 2.8, A1c 7.2. He is on 0.9 normal saline at 10 mL/h. Patient is awaiting bed at [facility]. Objective - Vital Signs Vital signs: Vital Signs Temp 96.5 F L 08/19/24 08:00 Pulse 68 08/19/24 09:00 Resp 22 08/19/24 09:00 BP 103/49 08/19/24 09:00 Pulse Ox 97 08/19/24 09:00 FiO2 9 08/19/24 08:00 Intake & Output 08/18/24 08/19/24 08/19/24 18:59 06:59 18:59 Intake Total 997.498 660 10 Output Total 1200 650 200 Balance -202.502 10 -190 Intake: IV 120 120 10 .9 120 120 10 Intake, IV Titration 127.498 Amount Insulin Regular 100 unit 27.498 In Sodium Chloride 0.9% 100 ml @ Titrate IV .Q0M [facility] Rx#:[id number] Sodium Ferric Gluconat- 100 Sucrose 125 mg In Sodium Chloride 0.9% 100 ml @ 100 mls/hr IVPB ONCE ONE Rx#:[id number] Oral 750 540 Output: Urine 1200 650 200 Other: Voiding Method External Catheter External Catheter External Catheter - Exam GENERAL EXAM: 64-year-old white male obese , 9 L high flow nasal cannula HEAD: Normocephalic and atraumatic EYES: Normal reaction of pupils, equal size. NOSE: Normal nasal mucosa no further epistaxis THROAT: No erythema or exudates. NECK: No masses, no JVD. CHEST: No chest wall deformity. Lungs: Bibasilar crackles crackles at the bases persist. CVS: S1 and S2 normal with soft systolic murmur, regular rhythm. No other extra heart sounds ABDOMEN: No hepatosplenomegaly, active bowel sounds, no guarding or rigidity. SKIN: No rashes CENTRAL NERVOUS SYSTEM: Alert oriented x 3 no gross focal deficit EXTREMITIES: No clubbing, no edema, no cyanosis - Labs CBC & Chem 7: 08/19/24 05:28 08/19/24 05:28 Labs: Abnormal Lab Results - Last 24 Hours (Table) 08/18/24 08/18/24 08/18/24 Range/Units 11:53 16:05 20:18 WBC (3.8-10.6) k/uL RBC (4.30-5.90) m/uL Hgb (13.0-17.5) gm/dL Hct (39.0-53.0) % Neutrophils # (1.3-7.7) k/uL Lymphocytes # (1.0-4.8) k/uL Sodium (137-145) mmol/L BUN (9-20) mg/dL Creatinine (0.66-1.25) mg/dL Glucose (74-99) mg/dL POC Glucose (mg/dL) 391 H 405 H 270 H (70-110) mg/dL Hemoglobin A1c (<=6.0) % Magnesium (1.6-2.3) mg/dL 08/19/24 08/19/24 08/19/24 Range/Units 02:57 05:28 05:28 WBC 26.5 H (3.8-10.6) k/uL RBC 2.29 L (4.30-5.90) m/uL Hgb 7.0 L (13.0-17.5) gm/dL Hct 21.6 L (39.0-53.0) % Neutrophils # 25.3 H (1.3-7.7) k/uL Lymphocytes # 0.3 L (1.0-4.8) k/uL Sodium (137-145) mmol/L BUN (9-20) mg/dL Creatinine (0.66-1.25) mg/dL Glucose (74-99) mg/dL POC Glucose (mg/dL) 307 H (70-110) mg/dL Hemoglobin A1c 7.2 H (<=6.0) % Magnesium (1.6-2.3) mg/dL 08/19/24 08/19/24 Range/Units 05:28 06:38 WBC (3.8-10.6) k/uL RBC (4.30-5.90) m/uL Hgb (13.0-17.5) gm/dL Hct (39.0-53.0) % Neutrophils # (1.3-7.7) k/uL Lymphocytes # (1.0-4.8) k/uL Sodium 132 L (137-145) mmol/L BUN 118 H* (9-20) mg/dL Creatinine 2.35 H (0.66-1.25) mg/dL Glucose 206 H (74-99) mg/dL POC Glucose (mg/dL) 241 H (70-110) mg/dL Hemoglobin A1c (<=6.0) % Magnesium 2.8 H (1.6-2.3) mg/dL Assessment and Plan Assessment: Acute on chronic hypoxic respiratory failure, multifactorial, I suspect this is mostly a picture of pulmonary edema, underlying pneumonia is not entirely ruled out. Hence the patient will remain on antibiotics and diuretics. Acute exacerbation of chronic systolic congestive heart failure, recent echocardiogram from 07/20/2024 estimating a left ventricular ejection fraction of 45 to 50%, moderate pulmonary hypertension, and moderate tricuspid regurgitation. Repeat echocardiogram showed improvement in LV function with ejection fraction 55% Acute leukocytosis Acute on chronic kidney disease Recent influenza A infection History of atrial fibrillation with previous cardioversion History of underlying COPD and chronic tobacco dependence Benign essential hypertension Type 2 diabetes Acute on chronic anemia patient will require a unit of packed RBCs to be transfused today. And will continue to monitor for any blood loss specially GI blood losses. Plan: Continue to monitor in the ICU Continue high flow nasal cannula, titrate FiO2 accordingly Continue Lasix 40 mg IV Q12HR Continue sodium bicarbonate tablet 650 mg PO BID Continue bronchodilators Continue Solu-Medrol at 40 mg IV push every 12 hours Patient is accepted at [facility] and his Insulin drip is discontinued with addition of Lantus and sliding scale in preparation for discharge. Patient awaiting bed. Remains marginal at best Remains quite ill, prognosis remains guarded. Time with Patient: Greater than 30
[2024-08-19 11:46] LABS: Glucose,Whole Blood 261 mg/dL (70-110)
[2024-08-19 11:46] LABS: Glucose,Whole Blood 279 mg/dL (70-110)
[2024-08-19] MEDS: SODIUM FERRIC GLUCONAT-SUCROSE 125 MG in SODIUM CHLORIDE 0.9% 100 ML IVPB ONE (11:52)
[2024-08-19 12:22] VITALS: BMI 33.8
--- NOTE | 2024-08-19 13:02 | P.PN ---
Subjective Progress Note Date: 08/19/24 Principal diagnosis: Reason for follow-up is pneumonia Patient is a 64-year-old male with a past medical history significant for diabetes mellitus hypertension hyperlipidemia pneumonia atrial fibrillation currently everyday smoker presenting to the hospital for evaluation of increasing shortness of breath patient has been diagnosed with multifocal pneumonia prompting this consultation. On today's evaluation that is 08/19/2024,the patient denies any fever or any chi lls, patient is breathing slightly comfortably and is down to 9 L high flow nasal cannula oxygen the patient denies chest pain or any significant cough no abdominal pain or diarrhea. Patient white count is 26.5 creatinine is 2.35 blood culture remains to be negative chest x-ray bibasilar infiltrate or edema small bilateral effusion Objective - Vital Signs Vital signs: Vital Signs Temp 96.5 F L 08/19/24 08:00 Pulse 70 08/19/24 11:00 Resp 16 08/19/24 11:00 BP 130/55 08/19/24 11:00 Pulse Ox 95 08/19/24 11:00 FiO2 50 08/19/24 10:19 Intake & Output 08/18/24 08/19/24 08/19/24 18:59 06:59 18:59 Intake Total 997.498 660 550 Output Total 1200 650 400 Balance -202.502 10 150 Weight 100.9 kg Intake: IV 120 120 50 .9 120 120 50 Intake, IV Titration 127.498 Amount Insulin Regular 100 unit 27.498 In Sodium Chloride 0.9% 100 ml @ Titrate IV .Q0M [facility] Rx#:[id number] Sodium Ferric Gluconat- 100 Sucrose 125 mg In Sodium Chloride 0.9% 100 ml @ 100 mls/hr IVPB ONCE ONE Rx#:[id number] Oral 750 540 500 Output: Urine 1200 650 400 Other: Voiding Method External Catheter External Catheter External Catheter - Exam GENERAL DESCRIPTION: An elderly male lying in bed in no distress RESPIRATORY SYSTEM: Unlabored breathing , coarse breath sounds bilaterally HEART: S1 S2 regular rate and rhythm , ABDOMEN: Soft , no tenderness EXTREMITIES: 2+ edema feet - Labs CBC & Chem 7: 08/19/24 05:28 08/19/24 05:28 Labs: Abnormal Lab Results - Last 24 Hours (Table) 08/18/24 08/18/24 08/19/24 Range/Units 16:05 20:18 02:57 WBC (3.8-10.6) k/uL RBC (4.30-5.90) m/uL Hgb (13.0-17.5) gm/dL Hct (39.0-53.0) % Neutrophils # (1.3-7.7) k/uL Lymphocytes # (1.0-4.8) k/uL Sodium (137-145) mmol/L BUN (9-20) mg/dL Creatinine (0.66-1.25) mg/dL Glucose (74-99) mg/dL POC Glucose (mg/dL) 405 H 270 H 307 H (70-110) mg/dL Hemoglobin A1c (<=6.0) % Magnesium (1.6-2.3) mg/dL 08/19/24 08/19/24 08/19/24 Range/Units 05:28 05:28 05:28 WBC 26.5 H (3.8-10.6) k/uL RBC 2.29 L (4.30-5.90) m/uL Hgb 7.0 L (13.0-17.5) gm/dL Hct 21.6 L (39.0-53.0) % Neutrophils # 25.3 H (1.3-7.7) k/uL Lymphocytes # 0.3 L (1.0-4.8) k/uL Sodium 132 L (137-145) mmol/L BUN 118 H* (9-20) mg/dL Creatinine 2.35 H (0.66-1.25) mg/dL Glucose 206 H (74-99) mg/dL POC Glucose (mg/dL) (70-110) mg/dL Hemoglobin A1c 7.2 H (<=6.0) % Magnesium 2.8 H (1.6-2.3) mg/dL 08/19/24 08/19/24 08/19/24 Range/Units 06:38 11:42 11:44 WBC (3.8-10.6) k/uL RBC (4.30-5.90) m/uL Hgb (13.0-17.5) gm/dL Hct (39.0-53.0) % Neutrophils # (1.3-7.7) k/uL Lymphocytes # (1.0-4.8) k/uL Sodium (137-145) mmol/L BUN (9-20) mg/dL Creatinine (0.66-1.25) mg/dL Glucose (74-99) mg/dL POC Glucose (mg/dL) 241 H 261 H 279 H (70-110) mg/dL Hemoglobin A1c (<=6.0) % Magnesium (1.6-2.3) mg/dL Assessment and Plan (1) Leukocytosis Current Visit: Yes Status: Acute Code(s): D72.829 - ELEVATED WHITE BLOOD CELL COUNT, UNSPECIFIED SNOMED Code(s): 265558496 (2) Bilateral pneumonia Current Visit: Yes Status: Acute Code(s): J18.9 - PNEUMONIA, UNSPECIFIED ORGANISM SNOMED Code(s): 321477857 Plan: 1patient presented hospital with increasing shortness of breath and chest pain which is likely multifactorial in this patient who did have evidence of PE on the CT there is also evidence of multifocal pneumonia with elevated white count and recently acute influenza A will need to cover for resistant gram-positive as well as gram-negative pathogen for post influenza pneumonia 2-blood culture has been negative no sputum has been collected, histo serology came back negative 3-patient has received adequate antibiotic therapy for pneumonia 4leukocytosis more likely steroid related plus minus oral pharyngeal candidiasis, Diflucan was added yesterday white count still elevated and will be monitored closely Dictation was produced using [employer] dictation software. please excuse any gra mmatical, word or spelling errors. Time with Patient: Less than 30
--- NOTE | 2024-08-19 14:08 | P.DS ---
Providers Date of admission: 08/04/24 23:15 Attending physician: Jorge Hicks Consults: 08/04/24 23:14 Consult Physician Routine Consulting Provider: Yonathan Guevara Consult Reason/Comments: PE Do you want consulting provider notified?: Yes 08/04/24 23:15 Consult Physician Routine Consulting Provider: Stefano Goode Consult Reason/Comments: hypoxia Do you want consulting provider notified?: Yes Consult Physician Urgent Consulting Provider: Bunny Jones Consult Reason/Comments: multifocalPna Do you want consulting provider notified?: Yes 08/10/24 09:54 Consult Physician Routine Consulting Provider: Haydee Goetz Consult Reason/Comments: DARI, hyponatremia Do you want consulting provider notified?: Yes Primary care physician: [facility] Course: Diagnoses: #. Acute pulmonary embolism, non-massive [segmental and subsegmental within the right middle and lower lobes. No RV strain #. Sepsis likely secondary to -viral pneumonia. Secondary bacterial component #. Acute hypoxic respiratory failure, secondary to above: Slow to respond #. Acute COPD exacerbation, in a prior smoker: Some improvement #. Acute on chronic heart failure with reduced ejection fraction (EF 45 to 50%): Some improvement #. Chronic hypoxic respiratory failure from underlying COPD, 2 L home O2 #. Acute kidney injury, likely ATN multifactorial, worsening #. Qxf-yucoqtd-hnhtlcpqh type 2 diabetes, uncontrolled with hyperglycemia secondary steroids: Not improving #. Essential hypertension- #. Hyperlipidemia -Full code Hospital course: Patient is a 64-year-old male with a PMH of atrial fibrillation on Eliquis, COPD on 2 L home oxygen, bhs-qjfbloh-wfckovfea diabetes mellitus, hyperlipidemia, hypertension presenting with shortness of breath. Patient was previously admitt ed here for acute hypoxic respiratory failure secondary to influenza pneumonia and was discharged on 2 L of home oxygen. Patient states he has been feeling short of breath while at rest. He reports that since being discharged the home oxygen has not been sufficient. He states that he had to keep increasing his oxygen. Patient says shortness of breath is slightly relieved when he is laying down. Denies any orthopnea or PND. Patient endorses a nonproductive cough that is chronic in nature, but says it has been getting worse. Patient admits to having fever, chills. Patient also admits to having non-radiating, pressure-like chest pain over the last few days. Chest pain is not related to exertion and he had no alleviating or aggravating factors. Patient denies any headache, vision changes, nausea, vomiting, diarrhea, abdominal pain, urinary symptoms. Patient was found to have acute hypoxic respiratory failure secondary to pulmonary edema with systolic dysfunction and ejection fraction was 45 to 50%. However pneumonia could not be excluded and patient was treated with IV antibiotic Nephrology team are following the patient closely for acute kidney injury on CKD stage III. Also patient had recent influenza infection. He is kept on blood thinner Eliquis for his history of atrial fibrillation. He has some elements of acute COPD exacerbation and was treated with Solu-Medrol 40 mg twice daily and this can be tapered to oral pills upon discharge with prednisone Patient oxygen requirements was 15 L/min told yesterday came down to 9 L/min which is the same as of today. Patient denies chest pain. No coughing. No other specific GI/ symptom. No headache dizziness. He feels generally weak. He feels anxious and is asking about getting his Xanax. Risk benefits explained for him. Other than that he looks stable and guarded prognosis and he is agreeable for the plan. He was cleared for discharge by all consultants including pulmonary/critical care team, nephrology team, and infectious disease Patient will be discharged antibiotics as per ID team Patient also taper steroids Continued on IV Lasix 40 mg twice daily, however this can be switched to oral dose 40 mg twice daily per accepting physician Problems and management plan were discussed with the patient and he verbalized understanding and acceptance Patient was found stable and can be discharged home in guarded prognosis however he needs follow-up as an outpatient. Patient was instructed to follow up with PCP within one week and patient agrees Physical exam -Gen: patient is a AAOx3, no distress. Generally weak CVS: S1-S2, RRR, no murmur -Lungs: B/L CTA, no wheezing. Bilateral basal crepitation. Mildly to moderately tachypneic Abdomen: soft, no distention, no tenderness, positive bowel sounds Extremity: Bilateral pitting leg edema or induration Time spent more than 35 minutes Patient Condition at Discharge: Serious Plan - Discharge Summary Discharge Rx Participant: No New Discharge Prescriptions: New Ipratropium-Albuterol Nebulize [Duoneb 0.5 mg-3 mg/3 ml Soln] 3 ml INHALATION RT-QID PRN each PRN Reason: Shortness Of Breath Or Wheezing HYDROcodone/APAP 5-325MG [[place] 5-325] 1 tab PO Q6HR PRN 3 Days #10 tab PRN Reason: Severe Pain (Scale 7 To 10) Budesonide [Pulmicort] 1 mg INHALATION RT-BID ml Apixaban [Eliquis Starter Pack (for VTE)] 5 - 10 mg PO DIRECTED 30 Days #1 each Artificial Tears-Hypromellose [Artificial Tear Drops] 1 drops BOTH EYES QID PRN ml PRN Reason: Dry Eye(S) Lactulose [Cephulac] 20 gm PO TID PRN ml PRN Reason: Constipation Ipratropium-Albuterol Nebulize [Duoneb 0.5 mg-3 mg/3 ml Soln] 3 ml INHALATION RT-Q4H each INSULIN LISPRO (HumaLOG) [HumaLOG] 0 unit SQ [id number] each Insulin Glargine (Lantus) [Lantus Vial] 20 unit SQ DAILY@0700 each Insulin Glargine (Lantus) [Lantus Vial] 20 unit SQ HS each predniSONE 10 mg PO DIRECTED #50 tab Pantoprazole [Protonix] 40 mg PO AC-BRKFST tab Sodium Bicarbonate Tab 650 mg PO BID tab ALPRAZolam [Xanax] 0.5 mg PO BID 3 Days #6 tab Continue Metoprolol Succinate (ER) [Toprol XL] 25 mg PO DAILY Aspirin 81 mg PO DAILY #90 tab Budesonide-Formot 160-4.5 Mcg [Symbicort 160-4.5 Mcg Inhaler] 2 puff INHALATION RT-BID 30 Days #1 each Changed Furosemide [Lasix] 40 mg IV BID #0 Discontinued Amiodarone [Cordarone] 200 mg PO DAILY predniSONE See Taper PO DAILY #32 tab lisinopriL [Zestril] 20 mg PO BID Spironolactone [Aldactone] 25 mg PO DAILY #90 tablet metFORMIN HCL [Glucophage] 500 mg PO BID #60 tab Atorvastatin [Lipitor] 40 mg PO HS #90 tab amLODIPine [Norvasc] 5 mg PO DAILY #90 tab No Action Apixaban [Eliquis] 5 mg PO BID Fluticasone Nasal Slaughters [Flonase Nasal Slaughters] 2 spray EA NOSTRIL DAILY PRN ml PRN Reason: Allergy Symptoms Discharge Medication List Apixaban [Eliquis] 5 mg PO BID 04/12/22 [History] Metoprolol Succinate (ER) [Toprol XL] 25 mg PO DAILY 07/20/24 [History] Aspirin 81 mg PO DAILY #90 tab 07/31/24 [Rx] Budesonide-Formot 160-4.5 Mcg [Symbicort 160-4.5 Mcg Inhaler] 2 puff INHALATION RT-BID 30 Days #1 each 07/31/24 [Rx] Fluticasone Nasal Slaughters [Flonase Nasal Slaughters] 2 spray EA NOSTRIL DAILY PRN ml 07/31/24 [Rx] Apixaban [Eliquis Starter Pack (for VTE)] 5 - 10 mg PO DIRECTED 30 Days #1 each 08/06/24 [Rx] ALPRAZolam [Xanax] 0.5 mg PO BID 3 Days #6 tab 08/19/24 [Rx] Artificial Tears-Hypromellose [Artificial Tear Drops] 1 drops BOTH EYES QID PRN ml 08/19/24 [Rx] Budesonide [Pulmicort] 1 mg INHALATION RT-BID ml 08/19/24 [Rx] Furosemide [Lasix] 40 mg IV BID #0 08/19/24 [Rx] HYDROcodone/APAP 5-325MG [[place] 5-325] 1 tab PO Q6HR PRN 3 Days #10 tab 08/19/24 [Rx] INSULIN LISPRO (HumaLOG) [HumaLOG] 0 unit SQ [id number] each 08/19/24 [Rx] Insulin Glargine (Lantus) [Lantus Vial] 20 unit SQ DAILY@0700 each 08/19/24 [Rx] Insulin Glargine (Lantus) [Lantus Vial] 20 unit SQ HS each 08/19/24 [Rx] Ipratropium-Albuterol Nebulize [Duoneb 0.5 mg-3 mg/3 ml Soln] 3 ml INHALATION RT-Q4H each 08/19/24 [Rx] Ipratropium-Albuterol Nebulize [Duoneb 0.5 mg-3 mg/3 ml Soln] 3 ml INHALATION RT-QID PRN each 08/19/24 [Rx] Lactulose [Cephulac] 20 gm PO TID PRN ml 08/19/24 [Rx] Pantoprazole [Protonix] 40 mg PO AC-BRKFST tab 08/19/24 [Rx] Sodium Bicarbonate Tab 650 mg PO BID tab 08/19/24 [Rx] predniSONE 10 mg PO DIRECTED #50 tab 08/19/24 [Rx] Follow up Appointment(s)/Referral(s): Haydee Goetz MD [STAFF PHYSICIAN] - 1 Week Gamal Toledo DO [STAFF PHYSICIAN] - 1 Week None,Stated [REFERRING] - 1-2 days Stefano Goode MD [STAFF PHYSICIAN] - 2 Weeks Activity/Diet/Wound Care/Special Instructions: [facility]
[2024-08-19] MEDS: DARBEPOETIN ALFA 40 MCG/0.4 ML SYRINGE SQ SCH (16:02)
[2024-08-19 16:30] VITALS: TEMP 96.7
[2024-08-19 16:58] LABS: Glucose,Whole Blood 234 mg/dL (70-110)
[2024-08-19 19:23] VITALS: BP 127/58; PULSE 69; RESP 15
== END 2024-08-19 20:00 | DRG 871 ==
LOC: EC 20:30 → 3SCARD 23:15 → 2SICU 08-09 12:09
PROVIDERS: ADMIT Hospitalist; ATTEND Hospitalist
PROC: 5A09357 Assistance with Respiratory Ventilation, Less than 24 Consecutive Hours, Continuous Positive Airway Pressure (ICD-10-PCS; principal; 2024-08-04)
PROC: 30233N1 Transfusion of Nonautologous Red Blood Cells into Peripheral Vein, Percutaneous Approach (ICD-10-PCS; 2024-08-13)
DX: A41.89 Other specified sepsis (principal); I21.A1 Myocardial infarction type 2; I50.23 Acute on chronic systolic (congestive) heart failure; J10.08 Influenza due to other identified influenza virus with other specified pneumonia; J12.9 Viral pneumonia, unspecified; J96.21 Acute and chronic respiratory failure with hypoxia; N17.0 Acute kidney failure with tubular necrosis; I26.93 Single subsegmental thrombotic pulmonary embolism without acute cor pulmonale; Z66 Do not resuscitate; E87.20 Acidosis, unspecified; I27.22 Pulmonary hypertension due to left heart disease; I13.0 Hypertensive heart and chronic kidney disease with heart failure and stage 1 through stage 4 chronic kidney disease, or unspecified chronic kidney disease; J44.1 Chronic obstructive pulmonary disease with (acute) exacerbation; N18.31 Chronic kidney disease, stage 3a; E11.22 Type 2 diabetes mellitus with diabetic chronic kidney disease; I07.1 Rheumatic tricuspid insufficiency; I77.89 Other specified disorders of arteries and arterioles; I42.8 Other cardiomyopathies; J44.0 Chronic obstructive pulmonary disease with (acute) lower respiratory infection; I48.19 Other persistent atrial fibrillation; J84.9 Interstitial pulmonary disease, unspecified; Q21.12 Patent foramen ovale; E87.1 Hypo-osmolality and hyponatremia; D62 Acute posthemorrhagic anemia; R65.20 Severe sepsis without septic shock; E11.65 Type 2 diabetes mellitus with hyperglycemia; T38.0X5A Adverse effect of glucocorticoids and synthetic analogues, initial encounter; F17.210 Nicotine dependence, cigarettes, uncomplicated; E78.5 Hyperlipidemia, unspecified; T50.916A Underdosing of multiple unspecified drugs, medicaments and biological substances, initial encounter; Z91.120 Patient's intentional underdosing of medication regimen due to financial hardship; I44.7 Left bundle-branch block, unspecified; R04.0 Epistaxis; Z99.81 Dependence on supplemental oxygen; Z79.84 Long term (current) use of oral hypoglycemic drugs; Z79.51 Long term (current) use of inhaled steroids; Z79.82 Long term (current) use of aspirin; Z79.899 Other long term (current) drug therapy; Z79.01 Long term (current) use of anticoagulants; Z87.01 Personal history of pneumonia (recurrent); Z87.19 Personal history of other diseases of the digestive system
CPT/HCPCS: 36410; 36415; 36600; 71045; 71275; 76770; 76937; 80048; 80053; 81001; 82040; 82728; 82803; 82805; 83036; 83540; 83550; 83605; 83735; 83880; 84100; 84145; 84484; 85025; 85027; 85379; 85610; 85730; 86038; 86140; 86255; 86431; 86698; 86706; 86850; 86900; 86901; 86920; 87040; 87340; 87449; 87636; 93005; 93308; 93970; 94640; 94660; 94760; 96365; 96366; 96367; 96368; 96375; 96376; 99291